=== PATIENT | female | born 1950 | race Two or more races ===

== ENCOUNTER → 2020-05-28 15:32 | Outpatient (BNVA) | payer MEDICARE, MEDICAID, SELFPAY | PROVIDERS: PCP Family Medicine; Referring Provider Family Medicine; Visit Provider Surgery Vascular Surgery | DX: Z47.81 Encounter for orthopedic aftercare following surgical amputation (principal); Z48.02 Encounter for removal of sutures; Z48.01 Encounter for change or removal of surgical wound dressing; Z89.512 Acquired absence of left leg below knee | CPT/HCPCS: 99024; 99212 ==

== ENCOUNTER → 2020-06-11 15:06 | Outpatient (BNVA) | payer MEDICARE, MEDICAID, SELFPAY | PROVIDERS: PCP Family Medicine; Visit Provider Surgery Vascular Surgery | DX: T81.89XA Other complications of procedures, not elsewhere classified, initial encounter (principal); L98.499 Non-pressure chronic ulcer of skin of other sites with unspecified severity; Z89.512 Acquired absence of left leg below knee | CPT/HCPCS: 99212 ==

== ENCOUNTER 2020-06-18 10:22 | Outpatient (RCR) | payer MEDICARE, MEDICAID, SELFPAY | END 2020-07-02 13:01 | disposition home or self-care (01) | LOC: HO.WCC 10:22 | PROVIDERS: Visit Provider Physician Assistant Surgical | DX: T87.81 Dehiscence of amputation stump (principal); E11.22 Type 2 diabetes mellitus with diabetic chronic kidney disease; E11.59 Type 2 diabetes mellitus with other circulatory complications; E11.40 Type 2 diabetes mellitus with diabetic neuropathy, unspecified; I12.9 Hypertensive chronic kidney disease with stage 1 through stage 4 chronic kidney disease, or unspecified chronic kidney disease; N18.30 Chronic kidney disease, stage 3 unspecified; Z89.512 Acquired absence of left leg below knee; Z79.4 Long term (current) use of insulin; Z95.0 Presence of cardiac pacemaker | CPT/HCPCS: 99203; 99212; 99213 ==

== ENCOUNTER → 2020-07-23 15:57 | Outpatient (BNVA) | payer MEDICARE, MEDICAID, SELFPAY | PROVIDERS: PCP Family Medicine; Visit Provider Surgery Vascular Surgery | DX: I73.9 Peripheral vascular disease, unspecified (principal); Z89.512 Acquired absence of left leg below knee | CPT/HCPCS: 99212 ==

== ENCOUNTER 2020-10-12 14:42 | Outpatient (REF) | payer MEDICARE, MEDICAID, SELFPAY ==
--- NOTE | ~2020-10-12 | US_ITS ---
EXAMINATION: COLOR-FLOW DUPLEX IMAGING OF THE UNILATERAL RIGHT LOWER EXTREMITY ARTERIAL SYSTEM. VELOCITY MEASUREMENTS THROUGHOUT THE FEMORAL ARTERIES WITH ANKLE-BRACHIAL PERIPHERAL ARTERIAL TESTING. Interventional Radiologist: Bertin Lopez M.D., F.S.I.R., F.A.C.R. CLINICAL INFORMATION: This is a 69-year-old female with peripheral vascular disease. The patient is status post left leg amputation. COMPARISON: Comparison is made to a study dated 03/04/2020. RIGHT FEMORAL RUNOFF VELOCITIES: The right common femoral artery measures 97 cm/s and triphasic. The right profunda femoral artery is 85 cm/s and is biphasic. Right proximal superficial femoral artery measures 77 cm/s and biphasic. Mid superficial femoral artery is 58 cm/s and biphasic. Distal right superficial femoral artery measures 80 cm/s and is biphasic. Right popliteal velocity measures 39 cm/s and is monophasic. The right ankle-brachial index is 1.07. US/US arterial duplex LE RT IMPRESSION: 1. There is diffusely scattered atherosclerotic disease without evidence of focal hemodynamically significant stenosis. The study appears similar to the previous study dated 03/04/2020.
--- NOTE | ~2020-10-12 | US_ITS ---
EXAMINATION: COLOR-FLOW DUPLEX IMAGING OF THE UNILATERAL RIGHT LOWER EXTREMITY ARTERIAL SYSTEM. VELOCITY MEASUREMENTS THROUGHOUT THE FEMORAL ARTERIES WITH ANKLE-BRACHIAL PERIPHERAL ARTERIAL TESTING. Interventional Radiologist: Bertin Lopez M.D., F.S.I.R., F.A.C.R. CLINICAL INFORMATION: This is a 69-year-old female with peripheral vascular disease. The patient is status post left leg amputation. COMPARISON: Comparison is made to a study dated 03/04/2020. RIGHT FEMORAL RUNOFF VELOCITIES: The right common femoral artery measures 97 cm/s and triphasic. The right profunda femoral artery is 85 cm/s and is biphasic. Right proximal superficial femoral artery measures 77 cm/s and biphasic. Mid superficial femoral artery is 58 cm/s and biphasic. Distal right superficial femoral artery measures 80 cm/s and is biphasic. Right popliteal velocity measures 39 cm/s and is monophasic. The right ankle-brachial index is 1.07. US/US LACI complete IMPRESSION: 1. There is diffusely scattered atherosclerotic disease without evidence of focal hemodynamically significant stenosis. The study appears similar to the previous study dated 03/04/2020.
== END 2020-10-12 14:43 | disposition home or self-care (01) ==
LOC: HO.US 14:42
PROVIDERS: Visit Provider Surgery Vascular Surgery
DX: I73.9 Peripheral vascular disease, unspecified (principal)
CPT/HCPCS: 93923; 93926

== ENCOUNTER → 2020-11-03 15:42 | Outpatient (BNVA) | payer MEDICARE, MEDICAID, SELFPAY | PROVIDERS: PCP Family Medicine; Visit Provider Surgery Vascular Surgery | DX: I73.9 Peripheral vascular disease, unspecified (principal) | CPT/HCPCS: 99212 ==

== ENCOUNTER 2021-06-09 13:41 | Outpatient (REF) | payer MEDICARE, MEDICAID, SELFPAY ==
--- NOTE | ~2021-06-09 | US_ITS ---
EXAMINATION: ANKLE-BRACHIAL INDICES RIGHT LEG ONLY SINGLE LEVEL PULSE VOLUME RECORDING RIGHT LEG ONLY ARTERIAL DUPLEX RIGHT LEG ONLY CLINICAL INFORMATION: Peripheral vascular disease COMPARISON: None TECHNIQUE: Right-sided ankle-brachial indices, PVR, and duplex Doppler evaluation of the lower extremity arterial system was performed (the patient has a left below knee amputation). FINDINGS: RIGHT: Ankle-brachial index: 0.99 PVR: Mildly abnormal. Common femoral: PSV 55 cm/s. Biphasic waveform. Deep femoral: PSV 70 cm/s. Biphasic waveform. Proximal superficial femoral: PSV 21 cm/s. Biphasic waveform. Mid superficial femoral: PSV 63 cm/s. Biphasic waveform. Distal superficial femoral: PSV 55 cm/s. Biphasic waveform. Popliteal: PSV 72 cm/s. Biphasic waveform. Posterior tibial artery: PSV 19 cm/s. Monophasic waveform. US/US arterial duplex LE RT IMPRESSION: Normal ankle-brachial index with mildly abnormal PVR waveform at the ankle. There is a distal SFA high-grade stenosis versus occlusion with collateralization. Posterior tibial waveform is monophasic.
--- NOTE | ~2021-06-09 | US_ITS ---
EXAMINATION: ANKLE-BRACHIAL INDICES RIGHT LEG ONLY SINGLE LEVEL PULSE VOLUME RECORDING RIGHT LEG ONLY ARTERIAL DUPLEX RIGHT LEG ONLY CLINICAL INFORMATION: Peripheral vascular disease COMPARISON: None TECHNIQUE: Right-sided ankle-brachial indices, PVR, and duplex Doppler evaluation of the lower extremity arterial system was performed (the patient has a left below knee amputation). FINDINGS: RIGHT: Ankle-brachial index: 0.99 PVR: Mildly abnormal. Common femoral: PSV 55 cm/s. Biphasic waveform. Deep femoral: PSV 70 cm/s. Biphasic waveform. Proximal superficial femoral: PSV 21 cm/s. Biphasic waveform. Mid superficial femoral: PSV 63 cm/s. Biphasic waveform. Distal superficial femoral: PSV 55 cm/s. Biphasic waveform. Popliteal: PSV 72 cm/s. Biphasic waveform. Posterior tibial artery: PSV 19 cm/s. Monophasic waveform. US/US LACI complete IMPRESSION: Normal ankle-brachial index with mildly abnormal PVR waveform at the ankle. There is a distal SFA high-grade stenosis versus occlusion with collateralization. Posterior tibial waveform is monophasic.
== END 2021-06-09 13:42 | disposition home or self-care (01) ==
LOC: HO.US 13:41
PROVIDERS: Visit Provider Surgery Vascular Surgery
DX: I73.9 Peripheral vascular disease, unspecified (principal)
CPT/HCPCS: 93923; 93926

== ENCOUNTER → 2021-07-20 13:18 | Outpatient (BNVA) | payer MEDICARE, MEDICAID, SELFPAY | PROVIDERS: PCP Family Medicine; Visit Provider Surgery Vascular Surgery | DX: I73.9 Peripheral vascular disease, unspecified (principal) | CPT/HCPCS: 99212 ==

== ENCOUNTER 2022-10-21 11:35 | Inpatient (IN) | payer MEDICARE, MEDICAID, SELFPAY ==
--- NOTE | ~2022-10-21 | US_ITS ---
EXAMINATION: NONINVASIVE ASSESSMENT OF THE ARTERIES OF THE RIGHT LOWER EXTREMITIES WITH PVR EXAM AND BILATERAL LOWER EXTREMITY DUPLEX Ivy Ochoa MD CLINICAL INFORMATION: Nonhealing toe ulcer TECHNIQUE: Ankle pulse volume recordings, ankle pressure measurements and ankle brachial indices were obtained of the right lower extremity arterial system bilaterally in addition to duplex Doppler techniques with wave form analysis and measurement of velocities in the common femoral, profunda femoral, superficial femoral, popliteal and tibial arteries. The study was performed only at rest. COMPARISON: Noninvasive arterial exam on 06/09/2021 FINDINGS: a) AT REST: RIGHT LE. The right ankle-brachial index is: 1.01 * >0.97-1.25 = normal - no significant arterial disease * 0.75-0.96 = mild peripheral arterial disease * 0.5-0.74 = moderate peripheral arterial disease * <0.50 = severe peripheral arterial disease 2. Right ankle pressure: normal. 3. Right ankle PVR waveform: Abnormal 4. Right direct duplex Doppler findings: Common femoral artery: 86 cm/s, Multiphasic Profunda femoris artery: 60 cm/s, Multiphasic Superficial femoral artery (proximal): 88 cm/s, Multiphasic Superficial femoral artery (mid): 57 cm/s, Multiphasic Superficial femoral artery (distal): 272 cm/s, Multiphasic Proximal Popliteal artery: 79 cm/s, Multiphasic Mid posterior tibial artery: 111 cm/s, Multiphasic Multiple right calf collaterals. There are several abnormal appearing inguinal lymph nodes. US/US LACI complete IMPRESSION: 1. Elevated velocity in the distal superficial femoral artery suggesting severe stenosis. 2. Multiple collateral vessels in the right calf. 3. Abnormal appearing inguinal lymph nodes.
--- NOTE | ~2022-10-21 | XR_ITS ---
EXAMINATION: XR FOOT, RIGHT CLINICAL INFORMATION: Great toe wound. COMPARISON: None TECHNIQUE: AP, lateral, and oblique views of the right foot. FINDINGS: Soft tissue deformity seen distally in the first digit. Subjacent lucency and cortical irregularity is seen in the medial aspect of the distal cortical margin of the distal phalanx of the first digit. The remainder the digits are intact. The tarsal bones are normally aligned. Mild to moderate atherosclerosis is noted. XR/XR foot RT min 3V IMPRESSION: Distal first digit soft tissue wound with findings suspicious for subjacent osteomyelitis in the first distal phalanx.
--- NOTE | ~2022-10-21 | US_ITS ---
EXAMINATION: NONINVASIVE ASSESSMENT OF THE ARTERIES OF THE RIGHT LOWER EXTREMITIES WITH PVR EXAM AND BILATERAL LOWER EXTREMITY DUPLEX Ivy Ochoa MD CLINICAL INFORMATION: Nonhealing toe ulcer TECHNIQUE: Ankle pulse volume recordings, ankle pressure measurements and ankle brachial indices were obtained of the right lower extremity arterial system bilaterally in addition to duplex Doppler techniques with wave form analysis and measurement of velocities in the common femoral, profunda femoral, superficial femoral, popliteal and tibial arteries. The study was performed only at rest. COMPARISON: Noninvasive arterial exam on 06/09/2021 FINDINGS: a) AT REST: RIGHT LE. The right ankle-brachial index is: 1.01 * >0.97-1.25 = normal - no significant arterial disease * 0.75-0.96 = mild peripheral arterial disease * 0.5-0.74 = moderate peripheral arterial disease * <0.50 = severe peripheral arterial disease 2. Right ankle pressure: normal. 3. Right ankle PVR waveform: Abnormal 4. Right direct duplex Doppler findings: Common femoral artery: 86 cm/s, Multiphasic Profunda femoris artery: 60 cm/s, Multiphasic Superficial femoral artery (proximal): 88 cm/s, Multiphasic Superficial femoral artery (mid): 57 cm/s, Multiphasic Superficial femoral artery (distal): 272 cm/s, Multiphasic Proximal Popliteal artery: 79 cm/s, Multiphasic Mid posterior tibial artery: 111 cm/s, Multiphasic Multiple right calf collaterals. There are several abnormal appearing inguinal lymph nodes. US/US arterial duplex LE RT IMPRESSION: 1. Elevated velocity in the distal superficial femoral artery suggesting severe stenosis. 2. Multiple collateral vessels in the right calf. 3. Abnormal appearing inguinal lymph nodes.
--- NOTE | 2022-10-21 12:11 | ED_ITS ---
HPI - Wound/Laceration General Chief Complaint: Wound/Laceration <Jayla Caldwell CNP - Last Filed: 10/21/22 12:17> Stated Complaint: diabetic, scratch on R foot <Jayla Caldwell CNP - Last Filed: 10/21/22 12:17> Time Seen by Provider: 10/21/22 18:50 <Jayla Caldwell CNP - Last Filed: 10/21/22 12:17> Source: patient and family <Marcella Giles MD - Last Filed: 10/21/22 22:05> Mode of arrival: ambulatory <Marcella Giles MD - Last Filed: 10/21/22 22:05> Limitations: no limitations <Marcella Giles MD - Last Filed: 10/21/22 22:05> History of Present Illness HPI narrative: Patient comes to the emergency room accompanied by her family. 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 Approximately 2 weeks ago, patient sustained an injury to the great toe on the right side. Patient's foot has becoming gradually erythematous, very painful to touch. Patient denies fever chills. Patient known to be diabetic. Patient has history of amputation due to osteomyelitis on the left foot <Marcella Giles MD - Last Filed: 10/21/22 22:05> Related Data Home Medications: Home Medications Medication Instructions Recorded Confirmed insulin glargine 100 unit/mL (3 40 unit subcut DAILY 05/28/20 mL) subcutaneous pen insulin lispro 100 unit/mL unit subcut 05/28/20 subcutaneous pen aspirin 81 mg chewable tablet 1 tab PO DAILY 06/11/20 atorvastatin 40 mg tablet mg PO 06/11/20 blood sugar diagnostic #10 ea 06/11/20 clopidogrel 75 mg tablet 75 mg PO DAILY 06/11/20 glucagon (human recombinant) 1 mg mg IM 06/11/20 solution for injection insulin aspart U-100 100 unit/mL unit subcut 06/11/20 (3 mL) subcutaneous pen lancets 28 gauge #100 ea 06/11/20 lisinopril 20 mg tablet 20 mg PO DAILY 06/11/20 pen needle, diabetic 31 gauge x #50 ea 06/11/20 1/4 amlodipine 5 mg tablet 5 mg PO DAILY 07/20/21 insulin degludec 200 unit/mL (3 unit subcut 07/20/21 mL) subcutaneous pen (Tresiba FlexTouch U-200 insulin) lisinopril 10 mg tablet 10 mg PO DAILY 07/20/21 pen needle, diabetic 31 gauge x #50 ea 07/20/21 trazodone 50 mg tablet 50 mg PO BEDTIME 07/20/21 <Jayla Caldwell CNP - Last Filed: 10/21/22 12:17> Allergies/Adverse Reactions: Allergies Allergy/AdvReac Type Severity Reaction Status Date / Time penicillin V Allergy Unknown RSH,ITCHY Verified 07/20/21 13:29 <Jayla Caldwell CNP - Last Filed: 10/21/22 12:17> Review of Systems Review of Systems: Constitutional : No Weight loss, No Fever, No Chills, No Night Sweats, No Fatigue, No Malaise ENT/Mouth : No Hearing loss, No Ear Pain, No Nasal Congestion, No Sinus Pain, No Hoarseness, No sore throat, No Rhinorrhea, No Swallowing Difficulty Eyes: No Eye Pain, No Swelling, No Redness, No Foreign Body, No Discharge, No Vision Changes Cardiovascular : No Chest Pain, No SOB, No Dyspnea on Exertion, No Orthopnea, No Edema, No Palpitations Respiratory : No Cough, No Sputum, No Wheezing, No Smoke Exposure, No Dyspnea Gastrointestinal : No Nausea, No Vomiting, No Diarrhea, No Constipation, No abdominal Pain, No Hematochezia, No Melena Genitourinary : no irregular bleeding, No Dysuria, No Urinary Frequency, No Hematuria, No Urinary Incontinence, No Urgency, No Flank Pain, No Urinary Flow Changes, No Hesitancy Musculoskeletal : No joint pain, No Myalgias, No Joint Swelling Skin : Skin infection on the dorsum of the foot on the right side, ulcer on the great toe Neuro : No Weakness, No Numbness, No Paresthesias, No Loss of Consciousness, No Dizziness, No Headache Psych : No Anxiety/Panic, No Depression, No SI/HI/AH/VH, No Social Issues, Heme/Lymph: No Bruising, No Bleeding,No Lymphadenopathy Endocrine : No Polyuria, No Polydipsia, No Temperature Intolerance <Marcella Giles MD - Last Filed: 10/21/22 22:05> [facility] Past Medical History Medical History: Medical History Diabetes Essential hypertension History of left below knee amputation Mood disorder PAD (peripheral artery disease) <Jayla Barfield SHERLY Caldwell - Last Filed: 10/21/22 12:17> Surgical History: Surgical History History of femoral angiogram History of left below knee amputation Pacemaker <Jayla Barfield SHERLY Caldwell - Last Filed: 10/21/22 12:17> Social History Social History: Social History Advance Directives: No Advance Directives Information Provided: Yes <Jayla Barfield SHERLY Caldwell - Last Filed: 10/21/22 12:17> Physical Exam Vital Signs: Vital Signs: Last Vital Signs Temp 96.4 F L 10/21/22 12:16 Pulse 72 10/21/22 19:34 Resp 19 10/21/22 19:34 BP 206/93 H 10/21/22 19:34 Pulse Ox 98 10/21/22 19:34 O2 Del Method 10/21/22 19:34 BMI result Body Mass Index 22.6 <Jayla HoltSHERLY de oliveira - Last Filed: 10/21/22 12:17> Vital Signs: Last Vital Signs Temp 96.4 F L 10/21/22 12:16 Pulse 72 10/21/22 19:34 Resp 19 10/21/22 19:34 BP 206/93 H 10/21/22 19:34 Pulse Ox 98 10/21/22 19:34 O2 Del Method 10/21/22 19:34 BMI result Body Mass Index 22.6 <Marcella Giles MD - Last Filed: 10/21/22 22:05> Const: Other: Appearance: Alert. Oriented X3. No acute distress. Eyes: Pupils equal, round and reactive to light. ENT: Pharynx normal. Neck: Normal inspection. Neck supple. No lymph nodes noted. No crepitus CVS: Normal heart rate and rhythm. Pulses normal. Normal S1 and S2 Respiratory: No respiratory distress. Breath sounds normal. No Wheezing. No rales Abdomen: Soft and nontender. No rigidity. No distention. Skin: Patient has a large nonhealing ulcer on the medial aspect of the toenail on the right great toe. Dorsum of the foot is warm, erythematous, very tender to touch. Patient also complaining of pain in the plantar aspect of the foot Extremities: Trace pitting edema in right foot, see skin above Neuro: Oriented X 3. No motor deficit. No sensory deficit. Moving all extremities. No slurred speech. CN 2 through 12 grossly intact Psych: calm, cooperative, normal affect <Marcella Giles MD - Last Filed: 10/21/22 22:05> Course Course Course Narrative: This is an RME: Additional HPI, ROS, PE not included below will be deferred to primary provider. Patient is a 71-year-old female with past medical history of diabetes who presents emergency department for evaluation of a reported scratch to the right foot. First noticed this 1 week ago, does not recall what caused it. Denies fevers or chills, numbness or tingling. Increasing redness, drainage. Plan: Labs, XR of the right foot. placed back in waiting room pending bed availability <Jayla Caldwell CNP - Last Filed: 10/21/22 12:17> Medications Administered Discontinued Medications Generic Name Dose Route Start Last Admin Trade Name Freq PRN Reason Stop Dose Admin Labetalol HCl 100 mg 10/21/22 21:01 10/21/22 21:10 Labetalol Hcl 100 Mg Tablet PO 10/21/22 21:02 100 mg ONCE ONE Administration Protocol <Jayla Caldwell CNP - Last Filed: 10/21/22 12:17> Medications Administered Discontinued Medications Generic Name Dose Route Start Last Admin Trade Name Freq PRN Reason Stop Dose Admin Labetalol HCl 100 mg 10/21/22 21:01 10/21/22 21:10 Labetalol Hcl 100 Mg Tablet PO 10/21/22 21:02 100 mg ONCE ONE Administration Protocol <Marcella Giles MD - Last Filed: 10/21/22 22:05> Medical Decision Making Medical Decision Making MDM Narrative: X-ray of the foot show suspicion for distal 1st digit osteomyelitis. -I discussed with the patient and her family that I recommend inpatient admission, patient will need IV antibiotics. Family agrees that the patient should be staying. Patient is refusing to stay. -patient already had a foot amputation secondary to a similar infection. The family is very upset that the patient that she is refusing admission. They are talking to her at this time and trying to convince her to stay. -a after a very prolonged conversation with the patient, the family, the family begging for the patient to stay , a lot of yelling and crying, patient is agreeable to stay -patient at this time getting Zosyn and vancomycin -patient agreeable to also to take blood pressure medication at this time, patient being given labetalol for her blood pressure. -I discussed the patient with Dr. Kulkarni, pt being admitted <Marcella Giles MD - Last Filed: 10/21/22 22:05> Differential Diagnosis Differential Diagnoses: The differential diagnosis associated with the presentation includes (Cellulitis, osteomyelitis) <Marcella Giles MD - Last Filed: 10/21/22 22:05> Admission/Observation Consideration of admission/observation: Escalation of care including admission/observation considered <aMrcella Giles MD - Last Filed: 10/21/22 22:05> Consult Healthcare Provider Management of the patient was discussed with: Hospitalist <Marcella Giles MD - Last Filed: 10/21/22 22:05> Lab Data MDM Lab Attestation statement: I reviewed the patient's lab results. <Marcella Giles MD - Last Filed: 10/21/22 22:05> Result Diagrams: 10/21/22 13:33 10/21/22 13:33 <Jayla Caldwell CNP - Last Filed: 10/21/22 12:17> Labs: Lab Results 10/21/22 10/21/22 10/21/22 Range/Units 13:33 13:33 13:33 WBC 5.7 (4.8-10.8) X10*3/uL RBC 4.53 (4.20-5.50) X10*6/uL Hgb 12.2 (12.0-16.0) g/dl Hct 38.8 (37.0-47.0) % MCV 85.7 (80.0-98.0) fL MCH 26.9 L (27.0-33.0) pg MCHC 31.4 (31.0-35.0) g/dl RDW 13.8 (11.0-16.0) % Plt Count 271 (160-400) X10*3/uL MPV 10.3 (9.4-12.3) fL Immature Gran % (Auto) 0.2 (0.0-0.4) % Neut % (Auto) 68.4 (45-73) % Lymph % (Auto) 21.0 (20-40) % [place] % (Auto) 9.1 (2-11) % Eos % (Auto) 1.0 (0-4) % Baso % (Auto) 0.3 (0-2) % Lymph # (Auto) 1.2 (1.2-4.9) X10*3/uL [place] # (Auto) 0.5 (0.1-1.2) X10*3/uL Eos # (Auto) 0.1 (0.0-0.4) X10*3/uL Baso # (Auto) 0.0 (0.0-0.2) X10*3/uL Abs Immat Gran (auto) 0.01 (0.00-0.03) X10*3/uL Absolute Neuts (auto) 3.9 (2.0-8.3) x10*3/uL Absolute Nucleated RBC 0.000 (0.0-0.012) X10*3/uL Nucleated RBC % (auto) 0.0 (0.0-0.2) /100WBC ESR 83 H (0-20) MM/HR Sodium 135 (135-145) mmol/L Potassium 5.0 (3.3-5.1) mmol/L Chloride 100 (96-108) mmol/L Carbon Dioxide 25 (22-29) mmol/L Anion Gap 15 (12-20) BUN 48 H (9-16) mg/dL Creatinine 1.50 H (0.5-1.4) mg/dL Estim Creat Clear Calc 32.1 Estimated GFR 34 Random Glucose 236 H (60-115) mg/dL Calcium 9.3 (8.4-10.2) mg/dL Total Bilirubin 0.3 (0.0-1.0) mg/dL AST 21 (5-31) U/L ALT 14 (0-31) U/L Alkaline Phosphatase 63 (39-117) U/L C-Reactive Protein 1.84 H (< or = 0.50) mg/dL Total Protein 8.1 H (6.5-8.0) g/dL Albumin 3.7 (3.5-5.0) g/dL <Jayla Caldwell, RECRUITER - Last Filed: 10/21/22 12:17> Lab Results 10/21/22 10/21/22 10/21/22 Range/Units 13:33 13:33 13:33 WBC 5.7 (4.8-10.8) X10*3/uL RBC 4.53 (4.20-5.50) X10*6/uL Hgb 12.2 (12.0-16.0) g/dl Hct 38.8 (37.0-47.0) % MCV 85.7 (80.0-98.0) fL MCH 26.9 L (27.0-33.0) pg MCHC 31.4 (31.0-35.0) g/dl RDW 13.8 (11.0-16.0) % Plt Count 271 (160-400) X10*3/uL MPV 10.3 (9.4-12.3) fL Immature Gran % (Auto) 0.2 (0.0-0.4) % Neut % (Auto) 68.4 (45-73) % Lymph % (Auto) 21.0 (20-40) % [place] % (Auto) 9.1 (2-11) % Eos % (Auto) 1.0 (0-4) % Baso % (Auto) 0.3 (0-2) % Lymph # (Auto) 1.2 (1.2-4.9) X10*3/uL [place] # (Auto) 0.5 (0.1-1.2) X10*3/uL Eos # (Auto) 0.1 (0.0-0.4) X10*3/uL Baso # (Auto) 0.0 (0.0-0.2) X10*3/uL Abs Immat Gran (auto) 0.01 (0.00-0.03) X10*3/uL Absolute Neuts (auto) 3.9 (2.0-8.3) x10*3/uL Absolute Nucleated RBC 0.000 (0.0-0.012) X10*3/uL Nucleated RBC % (auto) 0.0 (0.0-0.2) /100WBC ESR 83 H (0-20) MM/HR Sodium 135 (135-145) mmol/L Potassium 5.0 (3.3-5.1) mmol/L Chloride 100 (96-108) mmol/L Carbon Dioxide 25 (22-29) mmol/L Anion Gap 15 (12-20) BUN 48 H (9-16) mg/dL Creatinine 1.50 H (0.5-1.4) mg/dL Estim Creat Clear Calc 32.1 Estimated GFR 34 Random Glucose 236 H (60-115) mg/dL Calcium 9.3 (8.4-10.2) mg/dL Total Bilirubin 0.3 (0.0-1.0) mg/dL AST 21 (5-31) U/L ALT 14 (0-31) U/L Alkaline Phosphatase 63 (39-117) U/L C-Reactive Protein 1.84 H (< or = 0.50) mg/dL Total Protein 8.1 H (6.5-8.0) g/dL Albumin 3.7 (3.5-5.0) g/dL <Marcella Giles MD - Last Filed: 10/21/22 22:05> Independent Interpretation I performed an independent interpretation of an: Plain X-Ray (My interpretation a foot x-ray, there there osseus abnormality in the 1st digit) <Marcella Giles MD - Last Filed: 10/21/22 22:05> Radiology Impression Discussion of test interpretation with radiology: I have reviewed the radiologist's reading. <Marcella Giles MD - Last Filed: 10/21/22 22:05> Radiologist Impression: INDINGS: Soft tissue deformity seen distally in the first digit. Subjacent lucency and cortical irregularity is seen in the medial aspect of the distal cortical margin of the distal phalanx of the first digit. The remainder the digits are intact. The tarsal bones are normally aligned. Mild to moderate atherosclerosis is noted. XR/XR foot RT min 3V IMPRESSION: Distal first digit soft tissue wound with findings suspicious for subjacent osteomyelitis in the first distal phalanx. <Marcella Giles MD - Last Filed: 10/21/22 22:05> Critical Care Time Critical Care Time Critical Care Time: Yes <Marcella Giles MD - Last Filed: 10/21/22 22:05> Total Critical Care Time: 60 <Marcella Giles MD - Last Filed: 10/21/22 22:05> Attestation: I have personally provided critical care time. Time includes review of lab data, radiology results, discussion with consultants, and monitoring for potential decompensation. Intervention performed as documented. <Marcella Giles MD - Last Filed: 10/21/22 22:05> Discharge Plan Discharge Clinical Impression: Osteomyelitis, Hypertension <Jayla Caldwell CNP - Last Filed: 10/21/22 12:17> Patient Disposition: Admitted As Inpatient <Jayla Caldwell CNP - Last Filed: 10/21/22 12:17>
[2022-10-21 12:16] VITALS: BP 194/71; PULSE 77; RESP 16; TEMP 35.8; O2SAT 99; BMI 22.6
[2022-10-21 13:37] LABS: MANUAL DIFF FLAG NO
[2022-10-21 13:41] LABS: Basophils Percent Auto 0.3 % (0-2); Eosinophils Absolute Auto 0.1 X10*3/uL (0.0-0.4); Hematocrit 38.8 % (37.0-47.0); Hemoglobin 12.2 g/dl (12.0-16.0); Imm Gran Abs Auto 0.01 X10*3/uL (0.00-0.03); Imm Gran Pct Auto 0.2 % (0.0-0.4); Lymphocytes Absolute Auto 1.2 X10*3/uL (1.2-4.9); Mean Corpuscular HGB Conc 31.4 g/dl (31.0-35.0); Mean Corpuscular Hemoglobin 26.9 pg (27.0-33.0); Mean Corpuscular Volume 85.7 fL (80.0-98.0); Mean Platelet Volume 10.3 fL (9.4-12.3); Monocytes Absolute Auto 0.5 X10*3/uL (0.1-1.2); Monocytes Percent Auto 9.1 % (2-11); Neutrophils Absolute Auto 3.9 x10*3/uL (2.0-8.3); Neutrophils Percent Auto 68.4 % (45-73); Platelet Count 271 X10*3/uL (160-400); Red Blood Count 4.53 X10*6/uL (4.20-5.50); Red Cell Distribution Width 13.8 % (11.0-16.0); White Blood Count 5.7 X10*3/uL (4.8-10.8)
[2022-10-21 14:12] LABS: Alanine Aminotransferase 14 U/L (0-31); Albumin Level 3.7 g/dL (3.5-5.0); Alkaline Phosphatase 63 U/L (39-117); Anion Gap 15 (12-20); Aspartate Amino Transferase 21 U/L (5-31); Bilirubin Total 0.3 mg/dL (0.0-1.0); Blood Urea Nitrogen 48 mg/dL (9-16); C Reactive Protein 1.84 mg/dL (< or = 0.50); Calcium 9.3 mg/dL (8.4-10.2); Carbon Dioxide 25 mmol/L (22-29); Chloride 100 mmol/L (96-108); Creatinine Clr Calc Pharmacy 32.1; Estimated Glomerular Filt Rate 34; Glucose Random 236 mg/dL (60-115); Sodium 135 mmol/L (135-145); Total Protein 8.1 g/dL (6.5-8.0)
[2022-10-21 14:26] LABS: Erythrocyte Sedimentation Rate 83 MM/HR (0-20)
[2022-10-21 19:34] VITALS: BP 206/93; PULSE 72; RESP 19; O2SAT 98
[2022-10-21] MEDS: Labetalol HCL 100 MG TABLET PO (21:10)
--- NOTE | 2022-10-21 21:31 | PM.IMHP ---
History of Present Illness Date of Service: 10/21/22 Chief Complaint: Foot infection This is a 71-year-old female with pertinent history of essential hypertension, insulin-dependent diabetes mellitus, mood disorder, peripheral arterial disease status post left AKA presents to the emergency department for evaluation of injury to right great toe. Patient is Creole speaking and history obtained via family member as patient denied interpretation services. Patient states she had trauma to the right great toe about 2 weeks ago. Since then the right great toe has become erythematous, swollen and painful. No drainage. Patient denies fever, chills, chest discomfort, palpitations, shortness of breath, abdominal pain, changes in urinary or bowel habits. In the emergency department, imaging concerning for osteomyelitis Review of Systems Constitutional: Constitutional: Reports no additional constitutional complaints Cardiovascular: Cardiovascular: Reports no additional cardiovascular complaints Respiratory: Respiratory: Reports no additional respiratory complaints Genitourinary: Genitourinary: Reports no additional female genitourinary complaints Musculoskeletal: Musculoskeletal: Reports arthralgias [facility] Medical History Diabetes Essential hypertension History of left below knee amputation Mood disorder PAD (peripheral artery disease) Pertinent family history: No family history of CAD Surgical History History of femoral angiogram History of left below knee amputation Pacemaker Social History Advance Directives: No Advance Directives Information Provided: Yes Meds Allergies Allergy/AdvReac Type Severity Reaction Status Date / Time penicillin V Allergy Unknown RSH,ITCHY Verified 07/20/21 13:29 Active Medications: Current Medications Vancomycin HCl 1,500 mg/ (Sodium Chloride) 500 mls @ 333.333 mls/hr IV ONCE ONE Stop: 10/21/22 22:52 Piperacillin Sod/Tazobactam (Sod 3.375 gm/ Sodium Chloride) 50 mls @ 100 mls/hr IV ONCE ONE Stop: 10/21/22 21:52 Pharmacy Consult (Consult Rx Vancomycin Dosing) 1 each MISCELLANE DAILY PRN PRN Reason: Consult order Pharmacy Consult (Consult Rx Perform Med Rec) 1 each MISCELLANE ONCE PRN PRN Reason: Consult order Home Medications Medication Instructions Recorded Confirmed Last Taken Type insulin glargine 100 unit/mL (3 40 unit subcut DAILY 05/28/20 Unknown History mL) subcutaneous pen insulin lispro 100 unit/mL unit subcut 05/28/20 Unknown History subcutaneous pen aspirin 81 mg chewable tablet 1 tab PO DAILY 06/11/20 Unknown History atorvastatin 40 mg tablet mg PO 06/11/20 Unknown History blood sugar diagnostic #10 ea 06/11/20 Unknown History clopidogrel 75 mg tablet 75 mg PO DAILY 06/11/20 Unknown History glucagon (human recombinant) 1 mg mg IM 06/11/20 Unknown History solution for injection insulin aspart U-100 100 unit/mL unit subcut 06/11/20 Unknown History (3 mL) subcutaneous pen lancets 28 gauge #100 ea 06/11/20 Unknown History lisinopril 20 mg tablet 20 mg PO DAILY 06/11/20 Unknown History pen needle, diabetic 31 gauge x #50 ea 06/11/20 Unknown History 1/ amlodipine 5 mg tablet 5 mg PO DAILY 07/20/21 Unknown History insulin degludec 200 unit/mL (3 unit subcut 07/20/21 Unknown History mL) subcutaneous pen (Tresiba FlexTouch U-200 insulin) lisinopril 10 mg tablet 10 mg PO DAILY 07/20/21 Unknown History pen needle, diabetic 31 gauge x #50 ea 07/20/21 Unknown History trazodone 50 mg tablet 50 mg PO BEDTIME 07/20/21 Unknown History Physical Exam Vital Signs and Narrative: Vital Signs: Last Vital Signs Temp 96.4 F L 10/21/22 12:16 Pulse 72 10/21/22 19:34 Resp 19 10/21/22 19:34 BP 206/93 H 10/21/22 19:34 Pulse Ox 98 10/21/22 19:34 O2 Del Method 10/21/22 19:34 BMI result Body Mass Index 22.6 Elderly female lying in bed in no distress Neck supple, no JVD Regular rate and rhythm, S1-S2 heard Regular breath sounds bilaterally, no wheezing or crackles appreciated Abdomen soft nontender, no guarding, no rigidity Patient is awake, alert and oriented to self, place, time and person ; no focal motor deficit Musculoskeletal: Left AKA, right great toe with cellulitis and nonhealing wound Psych: Normal mood No pedal edema Results Labs 10/21/22 13:33 10/21/22 13:33 Labs: Laboratory Results - last 24 hr 10/21/22 10/21/22 10/21/22 13:33 13:33 13:33 MCV 85.7 MCH 26.9 L MCHC 31.4 RDW 13.8 Plt Count 271 MPV 10.3 Immature Gran % (Auto) 0.2 Neut % (Auto) 68.4 Lymph % (Auto) 21.0 [place] % (Auto) 9.1 Eos % (Auto) 1.0 Baso % (Auto) 0.3 Lymph # (Auto) 1.2 [place] # (Auto) 0.5 Eos # (Auto) 0.1 Baso # (Auto) 0.0 Abs Immat Gran (auto) 0.01 Absolute Neuts (auto) 3.9 Absolute Nucleated RBC 0.000 Nucleated RBC % (auto) 0.0 ESR 83 H Anion Gap 15 Estim Creat Clear Calc 32.1 Estimated GFR 34 Random Glucose 236 H Calcium 9.3 Total Bilirubin 0.3 AST 21 ALT 14 Alkaline Phosphatase 63 C-Reactive Protein 1.84 H Total Protein 8.1 H Albumin 3.7 Imaging Radiologist's Impressions: Impressions Foot X-Ray 10/21/22 12:59 IMPRESSION: Distal first digit soft tissue wound with findings suspicious for subjacent osteomyelitis in the first distal phalanx. Assessment and Plan (1) Osteomyelitis: Status: Acute Plan This is a 71-year-old female with pertinent history of essential hypertension, insulin-dependent diabetes mellitus, mood disorder, peripheral arterial disease status post left AKA presents to the emergency department for evaluation of injury to right great toe. #. Right great toe cellulitis with imaging concerning for cellulitis: Will admit patient and initiate empiric IV antibiotics. Consulted General surgery for possible debridement and Infectious Disease, appreciate assistance. Blood cultures pending. Lactic acid obtained #. Peripheral arterial disease status post left AKA: On antiplatelet therapy and high-intensity statin #. Hypertensive urgency in a patient with essential hypertension: Ordered nitro paste and IV labetalol in the ER. Resume p.o. antihypertensives #. Uncontrolled insulin-dependent diabetes mellitus with hyperglycemia: Initiating basal bolus regimen #. Mood disorder: Continue home mood stabilizers Med rec pending DVT prophylaxis: Lovenox 40 mg daily Diabetic diet Full code Admit as inpatient and will require two night minimum hospital stay for IV antibiotics Time Spent With Patient Time: Total time managing care of this patient today ____ minutes. Quality Stroke Does the patient have a stroke diagnosis?: No VTE Prior VTE?: No VTE Risk Level:: Medical - moderate - high VTE Device Contraindication: Treatment Not Indicated VTE Drug Contraindication: N/A - Med Ordered
[2022-10-21] MEDS: amLODIPine Besylate 5 MG TABLET PO (22:25)
[2022-10-21] MEDS: Labetalol HCL 100 MG/20 ML VIAL 10 MG IVPUSH (22:32)
[2022-10-21 22:34] VITALS: BP 171/84; O2SAT 96
[2022-10-21] MEDS: Enoxaparin Sodium 40 MG/0.4 ML SYRINGE SUBCUT (22:37)
[2022-10-21] MEDS: cefEPime HCl 2 GM in 0.9 % Sodium Chloride 50 ML IV (22:41)
[2022-10-21] MEDS: vancomycin HCL 1,500 MG in 0.9 % Sodium Chloride 500 ML 333.33 MG IV (22:52)
[2022-10-21 22:53] LABS: Lactic Acid 1.1 mmol/L (0.5-2.0)
[2022-10-21 22:57] VITALS: BP 134/67; PULSE 64; RESP 16; O2SAT 96
[2022-10-21 23:36] VITALS: BP 139/64; PULSE 65; RESP 18; O2SAT 96
[2022-10-21 23:42] LABS: Glucose, Whole Blood 158 mg/dL (60-115)
[2022-10-21 23:57] LABS: COVID-19 Test Negative (Negative); IDNOW Serial# 55D5AD1C
--- NOTE | 2022-10-21 23:59 | PC.NURSE ---
This business writer assumed care of this Pt at 1900. Pt A&Ox3, Creole speaking, denies any pain. IV line placed, meds given as documented. Nitro patched placed to R shoulder. R great toe red, no drainage noted, crust around the nail bed. + pedal pulse.
[2022-10-22 00:02] VITALS: BP 139/64; PULSE 64
[2022-10-22] MEDS: Nitroglycerin 2 % Oint 1 GM Packet 1 INCH TRANSDERMA (00:02)
--- NOTE | 2022-10-22 04:38 | PC.NURSE ---
RN to Rn reports given to Nancy. Pt will be transported to room 378 by rail technician. Pt aware of plan.
[2022-10-22 04:42] VITALS: BP 157/74; PULSE 65; RESP 16; TEMP 37; O2SAT 95
[2022-10-22 05:16] VITALS: BP 160/85; PULSE 70; RESP 18; TEMP 36.5; O2SAT 97
[2022-10-22 05:28] VITALS: BMI 22.8
[2022-10-22 05:34] LABS: MANUAL DIFF FLAG NO
[2022-10-22 05:38] LABS: Basophils Percent Auto 0.2 % (0-2); Eosinophils Absolute Auto 0.1 X10*3/uL (0.0-0.4); Eosinophils Percent Auto 1.5 % (0-4); Hematocrit 34.1 % (37.0-47.0); Imm Gran Abs Auto 0.01 X10*3/uL (0.00-0.03); Imm Gran Pct Auto 0.2 % (0.0-0.4); Lymphocytes Absolute Auto 1.5 X10*3/uL (1.2-4.9); Lymphocytes Percent Auto 32.5 % (20-40); Mean Corpuscular HGB Conc 32.3 g/dl (31.0-35.0); Mean Corpuscular Hemoglobin 27.4 pg (27.0-33.0); Mean Platelet Volume 10.7 fL (9.4-12.3); Monocytes Absolute Auto 0.6 X10*3/uL (0.1-1.2); Neutrophils Absolute Auto 2.4 x10*3/uL (2.0-8.3); Neutrophils Percent Auto 52.6 % (45-73); Platelet Count 241 X10*3/uL (160-400); Red Blood Count 4.01 X10*6/uL (4.20-5.50); Red Cell Distribution Width 13.7 % (11.0-16.0); White Blood Count 4.6 X10*3/uL (4.8-10.8)
[2022-10-22 05:51] LABS: Anion Gap 15 (12-20); Blood Urea Nitrogen 38 mg/dL (9-16); Calcium 8.7 mg/dL (8.4-10.2); Carbon Dioxide 22 mmol/L (22-29); Chloride 104 mmol/L (96-108); Creatinine Clr Calc Pharmacy 39.3; Estimated Glomerular Filt Rate 43; Glucose Random 144 mg/dL (60-115); Potassium 4.3 mmol/L (3.3-5.1); Sodium 137 mmol/L (135-145)
[2022-10-22 07:52] VITALS: BP 157/72; PULSE 73; RESP 18; TEMP 36.6; O2SAT 96
[2022-10-22 07:58] LABS: Glucose, Whole Blood 153 mg/dL (60-115)
--- NOTE | 2022-10-22 08:21 | HO.PM.IMPN ---
Subjective Subjective Date of Service: 10/23/22 Interval History: history obtained via manager wastewater, patient denies foot pain, no fevers no chills no other acute issues since admission, tolerating diet with no nausea, no vomiting, no abdominal pain, no diarrhea. Review of Systems Review of Systems: Yes all other systems are reviewed and are negative Physical Exam Vital Signs: Vital Signs: Last Vital Signs Temp 97.8 F 10/22/22 07:52 Pulse 73 10/22/22 07:52 Resp 18 10/22/22 07:52 BP 157/72 H 10/22/22 07:52 Pulse Ox 96 10/22/22 07:52 O2 Del Method 10/22/22 07:52 BMI result Body Mass Index 22.8 Const: Other: General awake aler t resting comforta briana in no distress ? Neck supple, no JVD CVS Regular r ate and rhythm, S1 -S2 heard Resp cl ear to auscultatio n bilaterally, no wheezing or crackl es GI Abdomen sof t, nontender, no g uarding, no rigidi ty Neuro nonfocal extremities no amy ma Musculoskeletal :? Left AKA, right great toe with ce llulitis and non h ealing wound, no d rainage Psych: ap propriate affect Objective Data Active Medications Acetaminophen (Acetaminophen 325 Mg Tablet) 650 mg PO Q6H PRN PRN Reason: Pain, Mild (Pain Scale 1-3) Dextrose (Dextrose 50 % 25 Gm/50 Ml Syringe) 25 gm IVPUSH Q15M PRN; Protocol PRN Reason: per Hypoglycemia Standing Ord. Enoxaparin Sodium (Enoxaparin Sodium 40 Mg/0.4 Ml Syringe) 40 mg SUBCUT Q24H [facility] Last Admin: 10/21/22 22:37 Dose: 40 mg Documented By: MARILYN Glucose (Glucose Gel 15 Gm Gel..Gram.) 15 gm PO Q15M PRN; Protocol PRN Reason: per Hypoglycemia Standing Ord. Cefepime HCl 2 gm/ Sodium (Chloride) 50 mls @ 100 mls/hr IV Q12H [facility] Last Infusion: 10/21/22 23:50 Dose: 0 mls/hr Documented By: MARILYN Vancomycin HCl 750 mg/ Sodium (Chloride) 265 mls @ 265 mls/hr IV Q24H [facility] Insulin Glargine (Insulin Glargine,Hum.Rec.Anlog 100 Unit/Ml 10 Ml Vial) 50 unit SUBCUT BEDTIME [facility] Last Admin: 10/22/22 00:00 Dose: 50 unit Documented By: MARILYN Insulin Human Lispro (Insulin Lispro 100 Unit/Ml 3 Ml Vial) 0 unit SUBCUT QIDACHS [facility]; Protocol Melatonin (Melatonin 3 Mg Tablet) 6 mg PO BEDTIME PRN PRN Reason: Insomnia Ondansetron HCl (Ondansetron Hcl 4 Mg/2 Ml Vial) 4 mg IVPUSH Q8H PRN PRN Reason: Nausea and Vomiting Pharmacy Consult (Consult Rx Perform Med Rec) 1 each MISCELLANE ONCE PRN PRN Reason: Consult order Pharmacy Consult (Consult Rx Vancomycin Dosing) 1 each MISCELLANE DAILY PRN PRN Reason: Consult order Sodium Chloride (0.9 % Sodium Chloride Flush 3 Ml Syringe) 3 ml IVFLUSH QSHIFT [facility] Last Admin: 10/22/22 00:07 Dose: Not Given Documented By: MARILYN Non-Admin Reason: IV Running Labs 10/22/22 05:16 10/22/22 05:16 Labs: Laboratory Results - last 24 hr 10/21/22 10/21/22 10/21/22 13:33 13:33 13:33 MCV 85.7 MCH 26.9 L MCHC 31.4 RDW 13.8 Plt Count 271 MPV 10.3 Immature Gran % (Auto) 0.2 Neut % (Auto) 68.4 Lymph % (Auto) 21.0 [place] % (Auto) 9.1 Eos % (Auto) 1.0 Baso % (Auto) 0.3 Lymph # (Auto) 1.2 [place] # (Auto) 0.5 Eos # (Auto) 0.1 Baso # (Auto) 0.0 Abs Immat Gran (auto) 0.01 Absolute Neuts (auto) 3.9 Absolute Nucleated RBC 0.000 Nucleated RBC % (auto) 0.0 ESR 83 H Anion Gap 15 Estim Creat Clear Calc 32.1 Estimated GFR 34 POC Glucose Random Glucose 236 H Lactic Acid Calcium 9.3 Total Bilirubin 0.3 AST 21 ALT 14 Alkaline Phosphatase 63 C-Reactive Protein 1.84 H Total Protein 8.1 H Albumin 3.7 COVID-19 ([facility]) COVID-19 Clin Com 10/21/22 10/21/2223 22:33 23:35 23:36 MCV MCH MCHC RDW Plt Count MPV Immature Gran % (Auto) Neut % (Auto) Lymph % (Auto) [place] % (Auto) Eos % (Auto) Baso % (Auto) Lymph # (Auto) [place] # (Auto) Eos # (Auto) Baso # (Auto) Abs Immat Gran (auto) Absolute Neuts (auto) Absolute Nucleated RBC Nucleated RBC % (auto) ESR Anion Gap Estim Creat Clear Calc Estimated GFR POC Glucose 158 H Random Glucose Lactic Acid 1.1 Calcium Total Bilirubin AST ALT Alkaline Phosphatase C-Reactive Protein Total Protein Albumin COVID-19 ([facility]) Negative COVID-19 Clin Com See Note 10/22/22 10/22/22 10/22/22 05:16 05:16 07:50 MCV 85.0 MCH 27.4 MCHC 32.3 RDW 13.7 Plt Count 241 MPV 10.7 Immature Gran % (Auto) 0.2 Neut % (Auto) 52.6 Lymph % (Auto) 32.5 [place] % (Auto) 13.0 H Eos % (Auto) 1.5 Baso % (Auto) 0.2 Lymph # (Auto) 1.5 [place] # (Auto) 0.6 Eos # (Auto) 0.1 Baso # (Auto) 0.0 Abs Immat Gran (auto) 0.01 Absolute Neuts (auto) 2.4 Absolute Nucleated RBC 0.000 Nucleated RBC % (auto) 0.0 ESR Anion Gap 15 Estim Creat Clear Calc 39.3 Estimated GFR 43 POC Glucose 153 H Random Glucose 144 H Lactic Acid Calcium 8.7 D Total Bilirubin AST ALT Alkaline Phosphatase C-Reactive Protein Total Protein Albumin COVID-19 ([facility]) COVID-19 Clin Com Assessment and Plan (1) Osteomyelitis: Status: Acute (2) Hypertension: Status: Acute (3) PAD (peripheral artery disease): Status: Acute Plan 71-year-old female with pertinent history of essential hypertension, insulin-dependent diabetes mellitus, mood disorder, peripheral arterial disease status post left AKA presents to the emergency department for evaluation of injury to right great toe. #.? Right great toe cellulitis with imaging concerning for Distal 1st digit osteomyelitis, no sepsis no fevers, no leukocytosis, normal lactic acid on IV cefepime and vancomycin day 1 ? Consulted General surgery for possible debridement and Infectious Disease for choice and duration of antibiotic, Blood cultures pending #.? Peripheral arterial disease status post left AKA: On asa and high-intensity statin #.? Hypertensive urgency with essential hypertension:? treated in ER with nitro paste and IV labetalol , blood pressure improved will resume home medication lisinopril 20 mg and Norvasc 5 mg follow BP closelyi #.? Uncontrolled insulin-dependent diabetes mellitus with hyperglycemia:? on Tresiba 60 units at bedtime, and pre meal insulin 20 units t.i.d., at home placed on insulin sliding scale, diabetic diet and Lantus 50 units at bedtime #.? Mood disorder: Continue home mood stabilizers Med rec completed DVT prophylaxis:? Lovenox 40 mg daily Full code patient will need continued inpatient hospitalization for treatment of right great toe cellulitis/ osteomyelitis requiring IV antibiotics. Time Spent With Patient Time: Total time managing care of this patient today ____ minutes. Quality Stroke Does the patient have a stroke diagnosis?: No VTE Prior VTE?: No VTE Risk Level:: Medical - moderate - high VTE Device Contraindication: Treatment Not Indicated VTE Drug Contraindication: N/A - Med Ordered
--- NOTE | 2022-10-22 08:42 | HE.PHANOTE ---
WANDER CHAVIRA CONTINUE CURRENT DOSE, NEXT LEVEL DUE 10/23
[2022-10-22] MEDS: Insulin Lispro 100 UNIT/ML 3 ML VIAL SUBCUT ×4 (09:02→21:29)
[2022-10-22] MEDS: cefEPime HCl 2 GM in 0.9 % Sodium Chloride 50 ML IV ×2 (09:02→21:30)
[2022-10-22] MEDS: 0.9 % Sodium Chloride Flush 3 ML SYRINGE IVFLUSH ×2 (09:04→17:22)
--- NOTE | 2022-10-22 09:48 | PHA.MEDREC ---
Pharmacy Consult ? Medication Reconciliation Pharmacy has completed the medication reconciliation. Attempted to contact family. Left voicemail to call back. Med rec completed by claim history. If family reaches out, will update provider on any changes. [place], SamD
[2022-10-22] MEDS: amLODIPine Besylate 5 MG TABLET PO (10:05)
[2022-10-22 11:30] LABS: Glucose, Whole Blood 282 mg/dL (60-115)
--- NOTE | 2022-10-22 14:36 | PM.CNGS ---
History of Present Illness Consult details Consult date: 10/22/22 Requesting physician: Richard Aguila Narrative: The pt is a 71 yo female with diabtes, pad, htn who is s/p left bka and right foot wound after hitting the foot on the bathroom floor. it started to get infected and the pt came to the ER. being treated with iv antibx. She sees Dr Puentes in the past and last LACI was 1.06 about a year ago. Foot and toe look better now but xrays showed distal phalanx osteomyelitis PMFSH Past Medical History Medical History Diabetes Essential hypertension History of left below knee amputation Mood disorder PAD (peripheral artery disease) Surgical History Surgical History History of femoral angiogram History of left below knee amputation Pacemaker Social History Social History Household Members: Unknown / Unable to assess Housing: Unknown / Unable to assess Unable to assess alcohol history related to: Unknown Alcohol intake: current Alcohol intake frequency: holidays/special occasions only Patient Tobacco Use Status: Never used Tobacco Smoked in Last 30 Days: No Use of substances other than those prescribed or required for medical reasons: No Advance Directives: No Advance Directives Information Provided: Yes Do you have thoughts of harming others: None Do you have a plan to hurt others: No Plan Recently lost weight without trying: Unsure Nutrition Risks: No Nutritional Risk Patient : No Poor oral hygiene: No Meds Allergies Allergy/AdvReac Type Severity Reaction Status Date / Time penicillin V Allergy Unknown RSH,ITCHY Verified 10/22/22 00:14 Active Medications: Current Medications Acetaminophen (Acetaminophen 325 Mg Tablet) 650 mg PO Q6H PRN PRN Reason: Pain, Mild (Pain Scale 1-3) Amlodipine Besylate (Amlodipine Besylate 5 Mg Tablet) 5 mg PO DAILY [facility]; Protocol Last Admin: 10/22/22 10:05 Dose: 5 mg Atorvastatin Calcium (Atorvastatin Calcium 40 Mg Tablet) 40 mg PO DAILY [facility] Dextrose (Dextrose 50 % 25 Gm/50 Ml Syringe) 25 gm IVPUSH Q15M PRN; Protocol PRN Reason: per Hypoglycemia Standing Ord. Enoxaparin Sodium (Enoxaparin Sodium 40 Mg/0.4 Ml Syringe) 40 mg SUBCUT Q24H [facility] Last Admin: 10/21/22 22:37 Dose: 40 mg Glucose (Glucose Gel 15 Gm Gel..Gram.) 15 gm PO Q15M PRN; Protocol PRN Reason: per Hypoglycemia Standing Ord. Cefepime HCl 2 gm/ Sodium (Chloride) 50 mls @ 100 mls/hr IV Q12H [facility] Last Infusion: 10/22/22 09:54 Dose: Infused Vancomycin HCl 750 mg/ Sodium (Chloride) 265 mls @ 265 mls/hr IV Q24H [facility] Insulin Glargine (Insulin Glargine,Hum.Rec.Anlog 100 Unit/Ml 10 Ml Vial) 50 unit SUBCUT BEDTIME [facility] Last Admin: 10/22/22 00:00 Dose: 50 unit Insulin Human Lispro (Insulin Lispro 100 Unit/Ml 3 Ml Vial) 0 unit SUBCUT QIDACHS [facility]; Protocol Last Admin: 10/22/22 12:16 Dose: 2 unit Lisinopril (Lisinopril 20 Mg Tablet) 20 mg PO DAILY [facility]; Protocol Melatonin (Melatonin 3 Mg Tablet) 6 mg PO BEDTIME PRN PRN Reason: Insomnia Ondansetron HCl (Ondansetron Hcl 4 Mg/2 Ml Vial) 4 mg IVPUSH Q8H PRN PRN Reason: Nausea and Vomiting Pharmacy Consult (Consult Rx Perform Med Rec) 1 each MISCELLANE ONCE PRN PRN Reason: Consult order Pharmacy Consult (Consult Rx Vancomycin Dosing) 1 each MISCELLANE DAILY PRN PRN Reason: Consult order Sodium Chloride (0.9 % Sodium Chloride Flush 3 Ml Syringe) 3 ml IVFLUSH QSHIFT [facility] Last Admin: 10/22/22 09:04 Dose: 3 ml Trazodone HCl (Trazodone Hcl 50 Mg Tablet) 50 mg PO BEDTIME [facility] Home Medications Medication Instructions Recorded Confirmed Last Taken Type blood sugar diagnostic #10 ea 06/11/20 Unknown History insulin aspart U-100 100 unit/mL 20 unit subcut TIDAC 06/11/20 10/21/22 Unknown History (3 mL) subcutaneous pen lancets 28 gauge #100 ea 06/11/20 Unknown History lisinopril 20 mg tablet 20 mg PO DAILY 06/11/20 10/21/22 Unknown History pen needle, diabetic 31 gauge x #50 ea 06/11/20 Unknown History 1/ insulin degludec 200 unit/mL (3 60 unit subcut BEDTIME 07/20/21 10/21/22 Unknown History mL) subcutaneous pen (Tresiba FlexTouch U-200 insulin) pen needle, diabetic 31 gauge x #50 ea 07/20/21 Unknown History amlodipine 5 mg tablet 1 tab PO DAILY 10/22/22 10/22/22 Unknown History aspirin 81 mg chewable tablet PO DAILY 10/22/22 Unknown History atorvastatin 40 mg tablet 1 tab PO DAILY 10/22/22 10/22/22 Unknown History trazodone 50 mg tablet 1 tab PO BEDTIME 10/22/22 10/22/22 Unknown History Physical Exam Vital Signs: Vital Signs: Last Vital Signs Temp 97.8 F 10/22/22 07:52 Pulse 73 10/22/22 07:52 Resp 18 10/22/22 07:52 BP 157/72 H 10/22/22 07:52 Pulse Ox 96 10/22/22 07:52 O2 Del Method 10/22/22 07:52 BMI result Body Mass Index 22.8 Const: General: cooperative, healthy appearing, comfortable and no acute distress Resp: Effort & Inspection: normal respiratory effort and able to speak in complete sentences Skin: Other: left bka stump right side - the great toe has a dry crusted wound no discharge not tender no sig redness no palpable pusles Results Labs 10/22/22 05:16 10/22/22 05:16 Labs: Abnormal lab results 10/21/22 10/22/22 10/22/22 Range/Units 23:36 05:16 05:16 WBC 4.6 L (4.8-10.8) X10*3/uL RBC 4.01 L (4.20-5.50) X10*6/uL Hgb 11.0 L (12.0-16.0) g/dl Hct 34.1 L (37.0-47.0) % [place] % (Auto) 13.0 H (2-11) % BUN 38 H (9-16) mg/dL POC Glucose 158 H (60-115) mg/dL Random Glucose 144 H (60-115) mg/dL 10/22/22 10/22/22 Range/Units 07:50 11:25 WBC (4.8-10.8) X10*3/uL RBC (4.20-5.50) X10*6/uL Hgb (12.0-16.0) g/dl Hct (37.0-47.0) % [place] % (Auto) (2-11) % BUN (9-16) mg/dL POC Glucose 153 H 282 H (60-115) mg/dL Random Glucose (60-115) mg/dL Short CBC 10/22/22 Range/Units 05:16 WBC 4.6 L (4.8-10.8) X10*3/uL Hgb 11.0 L (12.0-16.0) g/dl Hct 34.1 L (37.0-47.0) % Plt Count 241 (160-400) X10*3/uL BMP 10/22/22 05:16 Sodium 137 Potassium 4.3 Chloride 104 Carbon Dioxide 22 BUN 38 H Creatinine 1.23 Calcium 8.7 D All other labs normal. Assessment and Plan (1) Osteomyelitis: Status: Acute Plan 71 year old female with diabetes and PAD s/p right bka and now with left foot toe wound and cellullitis drydoing well - osteo of distal phalnx - acute. plan to treat with iv antibx betadine paint the great toe wound area - no need to debride or drain - relatively dry consider repeat LACI on monday and fu with dr Puentes as outpt Time Spent With Patient Time: Total time managing care of this patient today ____ minutes. Procedures Date of Service Date of Service: 10/22/22
[2022-10-22 15:53] VITALS: BP 169/72; PULSE 76; RESP 16; TEMP 37.8; O2SAT 99
[2022-10-22 16:32] LABS: Glucose, Whole Blood 255 mg/dL (60-115)
[2022-10-22 19:35] VITALS: BP 142/75; PULSE 85; RESP 15; TEMP 37; O2SAT 97
[2022-10-22 20:23] LABS: Glucose, Whole Blood 234 mg/dL (60-115)
[2022-10-22] MEDS: Enoxaparin Sodium 40 MG/0.4 ML SYRINGE SUBCUT (21:28)
[2022-10-22] MEDS: traZODone HCL 50 MG TABLET PO (21:28)
[2022-10-22] MEDS: vancomycin HCL 750 MG in 0.9 % Sodium Chloride 250 ML 265 MG IV (21:30)
[2022-10-22] MEDS: Insulin Glargine,Hum.rec.anlog 100 UNIT/ML 10 ML VIAL 50 UNIT SUBCUT ×2 (21:31)
[2022-10-23] MEDS: 0.9 % Sodium Chloride Flush 3 ML SYRINGE IVFLUSH ×3 (00:21→17:40)
[2022-10-23 03:18] VITALS: BP 123/64; PULSE 76; RESP 18; TEMP 36.3; O2SAT 95
[2022-10-23 07:47] LABS: Glucose, Whole Blood 98 mg/dL (60-115)
[2022-10-23 08:00] VITALS: BP 122/70; PULSE 78; RESP 18; TEMP 36.4; O2SAT 97
[2022-10-23] MEDS: lisinopriL 20 MG TABLET PO (09:26)
[2022-10-23] MEDS: amLODIPine Besylate 5 MG TABLET PO (09:26)
[2022-10-23] MEDS: Atorvastatin Calcium 40 MG TABLET PO (09:26)
[2022-10-23] MEDS: cefEPime HCl 2 GM in 0.9 % Sodium Chloride 50 ML IV ×2 (09:27→21:40)
[2022-10-23 11:14] LABS: Glucose, Whole Blood 189 mg/dL (60-115)
[2022-10-23] MEDS: Insulin Lispro 100 UNIT/ML 3 ML VIAL SUBCUT ×3 (12:14→21:41)
--- NOTE | 2022-10-23 13:46 | HO.PM.IMPN ---
Subjective Subjective Date of Service: 10/23/22 Interval History: history obtained via child center assistant patient offers no complaints, denies toe pain, no fevers, no chills, no other acute issues overnight tolerating diet. Review of Systems Review of Systems: Yes all other systems are reviewed and are negative Physical Exam Vital Signs: Vital Signs: Last Vital Signs Temp 97.6 F 10/23/22 08:00 Pulse 78 10/23/22 08:00 Resp 18 10/23/22 08:00 BP 122/70 10/23/22 08:00 Pulse Ox 97 10/23/22 08:00 O2 Del Method 10/23/22 08:00 BMI result Body Mass Index 22.8 Const: Other: General awake alert resting comfortably in no distress ?Neck supple, no?JVD CVS Regular rate and rhythm, S1-S2 heard Resp? clear to auscultation bilaterally, nowheezing or crackles GI Abdomen soft, nontender, no guarding, no rigidity Neuro nonfocal extremities no edema Musculoskeletal:? Left AKA, right?great toe with cellulitis and non healing wound, no drainage, no tenderness Psych:? appropriate affect Objective Data Active Medications Acetaminophen (Acetaminophen 325 Mg Tablet) 650 mg PO Q6H PRN PRN Reason: Pain, Mild (Pain Scale 1-3) Amlodipine Besylate (Amlodipine Besylate 5 Mg Tablet) 5 mg PO DAILY [facility]; Protocol Last Admin: 10/23/22 09:26 Dose: 5 mg Documented By: MAYELIN Atorvastatin Calcium (Atorvastatin Calcium 40 Mg Tablet) 40 mg PO DAILY [facility] Last Admin: 10/23/22 09:26 Dose: 40 mg Documented By: MAYELIN Dextrose (Dextrose 50 % 25 Gm/50 Ml Syringe) 25 gm IVPUSH Q15M PRN; Protocol PRN Reason: per Hypoglycemia Standing Ord. Enoxaparin Sodium (Enoxaparin Sodium 40 Mg/0.4 Ml Syringe) 40 mg SUBCUT Q24H [facility] Last Admin: 10/22/22 21:28 Dose: 40 mg Documented By: ROB Glucose (Glucose Gel 15 Gm Gel..Gram.) 15 gm PO Q15M PRN; Protocol PRN Reason: per Hypoglycemia Standing Ord. Cefepime HCl 2 gm/ Sodium (Chloride) 50 mls @ 100 mls/hr IV Q12H [facility] Last Infusion: 10/23/22 11:03 Dose: 0 mls/hr Documented By: MAYELIN Vancomycin HCl 750 mg/ Sodium (Chloride) 265 mls @ 265 mls/hr IV Q24H [facility] Last Infusion: 10/22/22 23:14 Dose: 0 mls/hr Documented By: ROB Insulin Glargine (Insulin Glargine,Hum.Rec.Anlog 100 Unit/Ml 10 Ml Vial) 50 unit SUBCUT BEDTIME [facility] Last Admin: 10/22/22 21:31 Dose: 50 unit Documented By: ROB Insulin Human Lispro (Insulin Lispro 100 Unit/Ml 3 Ml Vial) 0 unit SUBCUT QIDACHS [facility]; Protocol Last Admin: 10/23/22 12:14 Dose: 1 unit Documented By: MAYELIN Lisinopril (Lisinopril 20 Mg Tablet) 20 mg PO DAILY [facility]; Protocol Last Admin: 10/23/22 09:26 Dose: 20 mg Documented By: MAYELIN Melatonin (Melatonin 3 Mg Tablet) 6 mg PO BEDTIME PRN PRN Reason: Insomnia Ondansetron HCl (Ondansetron Hcl 4 Mg/2 Ml Vial) 4 mg IVPUSH Q8H PRN PRN Reason: Nausea and Vomiting Pharmacy Consult (Consult Rx Perform Med Rec) 1 each MISCELLANE ONCE PRN PRN Reason: Consult order Pharmacy Consult (Consult Rx Vancomycin Dosing) 1 each MISCELLANE DAILY PRN PRN Reason: Consult order Sodium Chloride (0.9 % Sodium Chloride Flush 3 Ml Syringe) 3 ml IVFLUSH QSHIFT [facility] Last Admin: 10/23/22 09:27 Dose: 3 ml Documented By: MAYELIN Trazodone HCl (Trazodone Hcl 50 Mg Tablet) 50 mg PO BEDTIME [facility] Last Admin: 10/22/22 21:28 Dose: 50 mg Documented By: ROB Labs 10/22/22 05:16 10/22/22 05:16 Labs: Laboratory Results - last 24 hr 10/22/22 10/22/22 10/23/22 16:29 20:15 07:42 POC Glucose 255 H 234 H 98 10/23/22 11:09 POC Glucose 189 H Microbiology Microbiology Results: Microbiology 10/21/22 22:33 Blood Culture - Preliminary Blood - Venous No growth after 24 hours. 10/21/22 22:33 Blood Culture - Preliminary Blood - Venous No growth after 24 hours. Assessment and Plan (1) Osteomyelitis: Status: Acute (2) Hypertension: Status: Acute (3) PAD (peripheral artery disease): Status: Acute Plan 71-year-old female with pertinent history of essential hypertension, insulin-dependent diabetes mellitus, mood disorder, peripheral arterial disease status post left AKA presents to the emergency department for evaluation of injury to right great toe. #.? Right great toe cellulitis with imaging concerning for Distal 1st digit osteomyelitis, no sepsis no fevers, no leukocytosis, normal lactic acid on IV cefepime and vancomycin day 2 ? seen by General surgery no debridement recommended, apply Betadine, repeat LACI studies on Monday, consulted Infectious Disease for choice and duration of antibiotic, Blood cultures pending #.? Peripheral arterial disease status post left AKA: On asa and high-intensity statin #.? Hypertensive urgency with essential hypertension:? BP improved on home medication lisinopril 20 mg and Norvasc 5 mg follow BP closelyi #.? Uncontrolled insulin-dependent diabetes mellitus with hyperglycemia:? on Tresiba 60 units at bedtime, and pre meal insulin 20 units t.i.d., at home placed on insulin sliding scale, diabetic diet and Lantus 50 units at bedtime #.? Mood disorder: Continue home mood stabilizers DVT prophylaxis:? Lovenox 40 mg daily Full code patient will need continued inpatient hospitalization for treatment of right great toe cellulitis/ osteomyelitis requiring IV antibiotics. Time Spent With Patient Time: Total time managing care of this patient today ____ minutes. Quality Stroke Does the patient have a stroke diagnosis?: No VTE Prior VTE?: No VTE Risk Level:: Medical - moderate - high VTE Device Contraindication: Treatment Not Indicated VTE Drug Contraindication: N/A - Med Ordered
--- NOTE | 2022-10-23 14:54 | MHC.CM.PN ---
CM SPOKE TO PTS DAUGHTER, JOS ([phone]) WHO REPORTS THE PT LIVES WITH HER BROTHER (PTS SON) SHE SAYS PT IS INDEPENDENT WITH CARE AND USES NO DME/SERVICES PT IS NOT COVID [employer]AX SHE SAYS PT GOES TO [facility] FOR PRIMARY CARE, SHE BELIEVES JORGE AVELAR IS THE PROVIDER PT DOES NOT HAVE A HCP, DOCUMENT AND INFORMATION PROVIDED. THEY ARE AWARE CM CAN ASSIST WITH COMPLETION IMM DELIVERED CURRENT DCP IS HOME VS HOME WITH [facility] AND [facility] FAMILY TO TRANSPORT [facility] REFERRALS MADE IN THE EVENT PT REQUIRES LT IV ABX
[2022-10-23 15:40] VITALS: BP 150/70; PULSE 70; RESP 16; TEMP 36.3; O2SAT 97
[2022-10-23 16:34] LABS: Glucose, Whole Blood 210 mg/dL (60-115)
[2022-10-23 19:42] VITALS: BP 143/67; PULSE 70; RESP 16; TEMP 36.9; O2SAT 96
--- NOTE | 2022-10-23 20:15 | P.PNGS_ITS ---
Subjective Subjective Date of Service: 10/23/22 Interval history: Patient is feeling fine no new issues in her toe feels good Physical Exam Vital Signs: Vital Signs: Last Vital Signs Temp 98.4 F 10/23/22 19:42 Pulse 70 10/23/22 19:42 Resp 16 10/23/22 19:42 BP 143/67 H 10/23/22 19:42 Pulse Ox 96 10/23/22 19:42 O2 Del Method 10/23/22 19:42 BMI result Body Mass Index 22.8 Skin: Other: The tip of her right great toe has someCrusted scab that looks good and organize no drainage around and the rest of the foot looks good. Objective Data Active Medications Acetaminophen (Acetaminophen 325 Mg Tablet) 650 mg PO Q6H PRN PRN Reason: Pain, Mild (Pain Scale 1-3) Amlodipine Besylate (Amlodipine Besylate 5 Mg Tablet) 5 mg PO DAILY [facility]; Protocol Last Admin: 10/23/22 09:26 Dose: 5 mg Documented By: MAYELIN Atorvastatin Calcium (Atorvastatin Calcium 40 Mg Tablet) 40 mg PO DAILY [facility] Last Admin: 10/23/22 09:26 Dose: 40 mg Documented By: MAYELIN Dextrose (Dextrose 50 % 25 Gm/50 Ml Syringe) 25 gm IVPUSH Q15M PRN; Protocol PRN Reason: per Hypoglycemia Standing Ord. Enoxaparin Sodium (Enoxaparin Sodium 40 Mg/0.4 Ml Syringe) 40 mg SUBCUT Q24H [facility] Last Admin: 10/22/22 21:28 Dose: 40 mg Documented By: ROB Glucose (Glucose Gel 15 Gm Gel..Gram.) 15 gm PO Q15M PRN; Protocol PRN Reason: per Hypoglycemia Standing Ord. Cefepime HCl 2 gm/ Sodium (Chloride) 50 mls @ 100 mls/hr IV Q12H [facility] Last Infusion: 10/23/22 11:03 Dose: 0 mls/hr Documented By: MAYELIN Vancomycin HCl 750 mg/ Sodium (Chloride) 265 mls @ 265 mls/hr IV Q24H [facility] Last Infusion: 10/22/22 23:14 Dose: 0 mls/hr Documented By: ROB Insulin Glargine (Insulin Glargine,Hum.Rec.Anlog 100 Unit/Ml 10 Ml Vial) 50 unit SUBCUT BEDTIME [facility] Last Admin: 10/22/22 21:31 Dose: 50 unit Documented By: ROB Insulin Human Lispro (Insulin Lispro 100 Unit/Ml 3 Ml Vial) 0 unit SUBCUT QIDACHS [facility]; Protocol Last Admin: 10/23/22 17:40 Dose: 4 unit Documented By: MAYELIN Lisinopril (Lisinopril 20 Mg Tablet) 20 mg PO DAILY [facility]; Protocol Last Admin: 10/23/22 09:26 Dose: 20 mg Documented By: MAYELIN Melatonin (Melatonin 3 Mg Tablet) 6 mg PO BEDTIME PRN PRN Reason: Insomnia Ondansetron HCl (Ondansetron Hcl 4 Mg/2 Ml Vial) 4 mg IVPUSH Q8H PRN PRN Reason: Nausea and Vomiting Pharmacy Consult (Consult Rx Perform Med Rec) 1 each MISCELLANE ONCE PRN PRN Reason: Consult order Pharmacy Consult (Consult Rx Vancomycin Dosing) 1 each MISCELLANE DAILY PRN PRN Reason: Consult order Sodium Chloride (0.9 % Sodium Chloride Flush 3 Ml Syringe) 3 ml IVFLUSH QSHIFT [facility] Last Admin: 10/23/22 17:40 Dose: 3 ml Documented By: MAYELIN Trazodone HCl (Trazodone Hcl 50 Mg Tablet) 50 mg PO BEDTIME [facility] Last Admin: 10/22/22 21:28 Dose: 50 mg Documented By: ROB Labs 10/22/22 05:16 10/22/22 05:16 Labs: Laboratory Results - last 24 hr 10/22/22 10/23/22 10/23/22 20:15 07:42 11:09 POC Glucose 234 H 98 189 H 10/23/22 16:26 POC Glucose 210 H Microbiology Microbiology Results: Microbiology 10/21/22 22:33 Blood Culture - Preliminary Blood - Venous No growth after 24 hours. 10/21/22 22:33 Blood Culture - Preliminary Blood - Venous No growth after 24 hours. Procedures Date of Service Date of Service: 10/23/22 Progress Note: A&P Assessment and plan (1) Osteomyelitis: Status: Acute Plan 71-year-old female with great toe wound and foot infection. The actual wound itself looks better. Continue IV antibiotics as per medical team. In regard to her vascular supply would consider getting repeat LACI ultrasound and have her follow-up with Dr. Puentes Time Spent With Patient Time: Total time managing care of this patient today ____ minutes. Quality Stroke Does the patient have a stroke diagnosis?: No VTE Prior VTE?: No VTE Risk Level:: Medical - moderate - high VTE Device Contraindication: Treatment Not Indicated VTE Drug Contraindication: N/A - Med Ordered
[2022-10-23 20:30] LABS: Vancomycin Random 13.2 mcg/mL (15-20)
[2022-10-23 20:54] LABS: Glucose, Whole Blood 177 mg/dL (60-115)
--- NOTE | 2022-10-23 21:23 | HE.PHANOTE ---
vancomycin addendum level after 2 doses came back at 13.2, scr that was ordered is still pending, may need to redraw this in am, for now keep same regimen will recheck level and scr
[2022-10-23] MEDS: vancomycin HCL 750 MG in 0.9 % Sodium Chloride 250 ML 265 MG IV (21:41)
[2022-10-23] MEDS: Enoxaparin Sodium 40 MG/0.4 ML SYRINGE SUBCUT (21:42)
[2022-10-23] MEDS: traZODone HCL 50 MG TABLET PO (21:42)
[2022-10-23] MEDS: Insulin Glargine,Hum.rec.anlog 100 UNIT/ML 10 ML VIAL 50 UNIT SUBCUT (21:42)
[2022-10-23 22:51] LABS: Creatinine Clr Calc Pharmacy 33.7; Estimated Glomerular Filt Rate 36
[2022-10-24 03:39] VITALS: BP 144/70; PULSE 70; RESP 16; TEMP 36.4; O2SAT 97
[2022-10-24 06:44] LABS: Estimated Glomerular Filt Rate 39
[2022-10-24 07:18] VITALS: BP 128/62; PULSE 69; RESP 16; TEMP 36.4; O2SAT 97
[2022-10-24 08:00] LABS: Glucose, Whole Blood 118 mg/dL (60-115)
[2022-10-24] MEDS: lisinopriL 20 MG TABLET PO (08:26)
[2022-10-24] MEDS: 0.9 % Sodium Chloride Flush 3 ML SYRINGE IVFLUSH ×2 (08:27→15:17)
[2022-10-24] MEDS: amLODIPine Besylate 5 MG TABLET PO (08:27)
[2022-10-24] MEDS: cefEPime HCl 2 GM in 0.9 % Sodium Chloride 50 ML IV (08:27)
[2022-10-24] MEDS: Atorvastatin Calcium 40 MG TABLET PO (08:27)
--- NOTE | 2022-10-24 10:15 | PM.CNGS ---
History of Present Illness Consult details Consult date: 10/24/22 Reason for consult: wound care Narrative: Very pleasant 71-year-old female well known to me with a history of prior left below-knee amputation presented to the hospital with nonhealing right great toe ulcer. She had been seen in the remote past and had failed for multiple follow-ups. In addition we did reach out to the daughter and she did not follow-up as well. She now presents to us for for vascular evaluation regarding nonhealing right great toe ulcer Review of Systems Review of Systems: Yes all other systems are reviewed and are negative Constitutional: Constitutional: Reports no additional constitutional complaints ENT: Reports Normal hearing present Cardiovascular: Cardiovascular: Denies chest pain, Denies chest pain at rest, Denies chest pain with activity and Denies pedal edema Respiratory: Respiratory: Denies cough Gastrointestinal: Gastrointestinal: Denies abdominal pain Musculoskeletal: Musculoskeletal: Denies abnormal gait, Denies muscle cramps and Denies radiating pain into limb Integumentary/Breasts: Skin/Breast: Denies skin ulcer and Denies wounds Neurologic: Reports Normal hearing present and Denies abnormal gait Psychiatric: Psychiatric: Reports no additional psychiatric complaints [facility] Past Medical History Medical History Diabetes Essential hypertension History of left below knee amputation Mood disorder PAD (peripheral artery disease) Surgical History Surgical History History of femoral angiogram History of left below knee amputation Pacemaker Social History Social History Household Members: Unknown / Unable to assess Housing: Unknown / Unable to assess Unable to assess alcohol history related to: Unknown Alcohol intake: current Alcohol intake frequency: holidays/special occasions only Patient Tobacco Use Status: Never used Tobacco Smoked in Last 30 Days: No Use of substances other than those prescribed or required for medical reasons: No Advance Directives: No Advance Directives Information Provided: Yes Do you have thoughts of harming others: None Do you have a plan to hurt others: No Plan Recently lost weight without trying: Unsure Nutrition Risks: No Nutritional Risk Patient : No Poor oral hygiene: No service: No Current occupational status: retired Meds Allergies Allergy/AdvReac Type Severity Reaction Status Date / Time penicillin V Allergy Unknown RSH,ITCHY Verified 10/22/22 00:14 Active Medications: Current Medications Acetaminophen (Acetaminophen 325 Mg Tablet) 650 mg PO Q6H PRN PRN Reason: Pain, Mild (Pain Scale 1-3) Amlodipine Besylate (Amlodipine Besylate 5 Mg Tablet) 5 mg PO DAILY [facility]; Protocol Last Admin: 10/24/22 08:27 Dose: 5 mg Atorvastatin Calcium (Atorvastatin Calcium 40 Mg Tablet) 40 mg PO DAILY [facility] Last Admin: 10/24/22 08:27 Dose: 40 mg Dextrose (Dextrose 50 % 25 Gm/50 Ml Syringe) 25 gm IVPUSH Q15M PRN; Protocol PRN Reason: per Hypoglycemia Standing Ord. Enoxaparin Sodium (Enoxaparin Sodium 40 Mg/0.4 Ml Syringe) 40 mg SUBCUT Q24H [facility] Last Admin: 10/23/22 21:42 Dose: 40 mg Glucose (Glucose Gel 15 Gm Gel..Gram.) 15 gm PO Q15M PRN; Protocol PRN Reason: per Hypoglycemia Standing Ord. Cefepime HCl 2 gm/ Sodium (Chloride) 50 mls @ 100 mls/hr IV Q12H [facility] Last Infusion: 10/24/22 09:08 Dose: Infused Vancomycin HCl 750 mg/ Sodium (Chloride) 265 mls @ 265 mls/hr IV Q24H [facility] Last Infusion: 10/23/22 23:18 Dose: Infused Insulin Glargine (Insulin Glargine,Hum.Rec.Anlog 100 Unit/Ml 10 Ml Vial) 50 unit SUBCUT BEDTIME [facility] Last Admin: 10/23/22 21:42 Dose: 50 unit Insulin Human Lispro (Insulin Lispro 100 Unit/Ml 3 Ml Vial) 0 unit SUBCUT QIDACHS [facility]; Protocol Last Admin: 10/24/22 08:08 Dose: Not Given Lisinopril (Lisinopril 20 Mg Tablet) 20 mg PO DAILY [facility]; Protocol Last Admin: 10/24/22 08:26 Dose: 20 mg Melatonin (Melatonin 3 Mg Tablet) 6 mg PO BEDTIME PRN PRN Reason: Insomnia Ondansetron HCl (Ondansetron Hcl 4 Mg/2 Ml Vial) 4 mg IVPUSH Q8H PRN PRN Reason: Nausea and Vomiting Pharmacy Consult (Consult Rx Perform Med Rec) 1 each MISCELLANE ONCE PRN PRN Reason: Consult order Pharmacy Consult (Consult Rx Vancomycin Dosing) 1 each MISCELLANE DAILY PRN PRN Reason: Consult order Sodium Chloride (0.9 % Sodium Chloride Flush 3 Ml Syringe) 3 ml IVFLUSH QSHIFT [facility] Last Admin: 10/24/22 08:27 Dose: 3 ml Trazodone HCl (Trazodone Hcl 50 Mg Tablet) 50 mg PO BEDTIME [facility] Last Admin: 10/23/22 21:42 Dose: 50 mg Home Medications Medication Instructions Recorded Confirmed Last Taken Type blood sugar diagnostic #10 ea 06/11/20 Unknown History insulin aspart U-100 100 unit/mL 20 unit subcut TIDAC 06/11/20 10/21/22 Unknown History (3 mL) subcutaneous pen lancets 28 gauge #100 ea 06/11/20 Unknown History lisinopril 20 mg tablet 20 mg PO DAILY 06/11/20 10/21/22 Unknown History pen needle, diabetic 31 gauge x #50 ea 06/11/20 Unknown History 1/4 insulin degludec 200 unit/mL (3 60 unit subcut BEDTIME 07/20/21 10/21/22 Unknown History mL) subcutaneous pen (Tresiba FlexTouch U-200 insulin) pen needle, diabetic 31 gauge x #50 ea 07/20/21 Unknown History 15 amlodipine 5 mg tablet 1 tab PO DAILY 10/22/22 10/22/22 Unknown History aspirin 81 mg chewable tablet PO DAILY 10/22/22 Unknown History atorvastatin 40 mg tablet 1 tab PO DAILY 10/22/22 10/22/22 Unknown History trazodone 50 mg tablet 1 tab PO BEDTIME 10/22/22 10/22/22 Unknown History Physical Exam Vital Signs: Vital Signs: Last Vital Signs Temp 97.6 F 10/24/22 07:18 Pulse 69 10/24/22 07:18 Resp 16 10/24/22 07:18 BP 128/62 10/24/22 07:18 Pulse Ox 97 10/24/22 07:18 O2 Del Method 10/24/22 07:18 BMI result Body Mass Index 22.8 Const: General: cooperative, healthy appearing and comfortable Orientation/consciousness: oriented to person, oriented to place and oriented to time HEENT: Head: Yes normal to inspection Neck: Neck: Yes normal visual inspection Carotids: no bruits Chest: Chest palpation & inspection: normal inspection of the chest Resp: Effort & Inspection: normal respiratory effort and able to speak in complete sentences Auscultation: clear to auscultation bilaterally, no crackles, no rales, no rhonchi and no wheezes Cardio: Rate: regular rate Rhythm: regular rhythm Heart sounds: S1 normal heart sound present and S2 normal heart sound present Bruits: no carotid bruits Peripheral pulses: Peripheral pulses 2+ throughout GI: Inspection: Yes normal to inspection Skin: Other: Right great toe poorly maintained nail bed. Medial and lateral ulcer on the great toe. Left BKA stump well-healed central dry portion but completely covered over. Wounds: no wounds Hair: normal Neuro: General: oriented to person, oriented to place and oriented to time Cranial nerves: Yes CN's II-XII intact bilaterally and Yes Normal hearing present Cognition (Neuro): normal cognition Motor exam (neuro): 5/5 motor strength present throughout Extrem: Other: venous exam: No significant superficial varicosities or spider telangiectasias, minimal edema General: No clubbing, No cyanosis and No edema Psych: Appearance: grossly normal Mental Status: mental status grossly normal Speech and movement: Normal speech and movement present Results Labs 10/22/22 05:16 10/24/22 05:25 Labs: Abnormal lab results 10/23/22 10/23/22 10/23/22 Range/Units 11:09 16:26 20:03 Creatinine (0.5-1.4) mg/dL POC Glucose 189 H 210 H (60-115) mg/dL Random Vancomycin 13.2 L (15-20) mcg/mL 10/23/22 10/23/22 10/24/22 Range/Units 20:03 20:43 07:35 Creatinine 1.43 H (0.5-1.4) mg/dL POC Glucose 177 H 118 H (60-115) mg/dL Random Vancomycin (15-20) mcg/mL [facility] 10/23/22 10/24/22 20:03 05:25 Creatinine 1.43 H 1.34 All other labs normal. Imaging Additional studies: Foot x-ray of 10/21/2022 suspicious for underlying osteomyelitis Assessment and Plan (1) PAD (peripheral artery disease): Status: Acute Plan In short patient has nonhealing right great toe ulcer. Left stump appears to be doing well. Unfortunately she does have a history of peripheral vascular disease and has not shown for follow-up. Will order noninvasive testing of the right lower extremity. I do suspect that the underlying osteomyelitis has to be treated. Will assess arterial status and proceed from there. Thank you for allowing us to assist in her care. If there are any questions or concerns please do not hesitate to contact us. Time Spent With Patient Time: Total time managing care of this patient today ____ minutes. Procedures Date of Service Date of Service: 10/24/22
[2022-10-24 11:27] LABS: Glucose, Whole Blood 164 mg/dL (60-115)
--- NOTE | 2022-10-24 11:38 | HO.PM.IMPN ---
Subjective Subjective Date of Service: 10/24/22 Interval History: resting comfortably offers no acute complaints, denies pain at right great toe, no fevers, no chills, no overnight events tolerating diet. Review of Systems Review of Systems: Yes all other systems are reviewed and are negative Physical Exam Vital Signs: Vital Signs: Last Vital Signs Temp 97.6 F 10/24/22 07:18 Pulse 69 10/24/22 07:18 Resp 16 10/24/22 07:18 BP 128/62 10/24/22 07:18 Pulse Ox 97 10/24/22 07:18 O2 Del Method 10/24/22 07:18 BMI result Body Mass Index 22.8 Const: Other: General awake, alert, resting comfortably in no distress. Neck supple, no?JVD CVS Regular rate and rhythm, S1-S2 heard Resp? clear to auscultation bilaterally, nowheezing or crackles GI Abdomen soft, nontender, no guarding, no rigidity,bs + Neuro nonfocal extremities no edema Musculoskeletal:?right?great toe dry ulcer, no drainage, no tenderness Psych:? appropriate affect Objective Data Active Medications Acetaminophen (Acetaminophen 325 Mg Tablet) 650 mg PO Q6H PRN PRN Reason: Pain, Mild (Pain Scale 1-3) Amlodipine Besylate (Amlodipine Besylate 5 Mg Tablet) 5 mg PO DAILY [facility]; Protocol Last Admin: 10/24/22 08:27 Dose: 5 mg Documented By: MAYELIN Atorvastatin Calcium (Atorvastatin Calcium 40 Mg Tablet) 40 mg PO DAILY [facility] Last Admin: 10/24/22 08:27 Dose: 40 mg Documented By: MAYELIN Dextrose (Dextrose 50 % 25 Gm/50 Ml Syringe) 25 gm IVPUSH Q15M PRN; Protocol PRN Reason: per Hypoglycemia Standing Ord. Enoxaparin Sodium (Enoxaparin Sodium 40 Mg/0.4 Ml Syringe) 40 mg SUBCUT Q24H [facility] Last Admin: 10/23/22 21:42 Dose: 40 mg Documented By: ROB Glucose (Glucose Gel 15 Gm Gel..Gram.) 15 gm PO Q15M PRN; Protocol PRN Reason: per Hypoglycemia Standing Ord. Cefepime HCl 2 gm/ Sodium (Chloride) 50 mls @ 100 mls/hr IV Q12H [facility] Last Infusion: 10/24/22 09:08 Dose: 0 mls/hr Documented By: MAYELIN Vancomycin HCl 750 mg/ Sodium (Chloride) 265 mls @ 265 mls/hr IV Q24H [facility] Last Infusion: 10/23/22 23:18 Dose: 0 mls/hr Documented By: ROB Insulin Glargine (Insulin Glargine,Hum.Rec.Anlog 100 Unit/Ml 10 Ml Vial) 50 unit SUBCUT BEDTIME [facility] Last Admin: 10/23/22 21:42 Dose: 50 unit Documented By: ROB Insulin Human Lispro (Insulin Lispro 100 Unit/Ml 3 Ml Vial) 0 unit SUBCUT QIDACHS [facility]; Protocol Last Admin: 10/24/22 08:08 Dose: Not Given Documented By: MAYELIN Non-Admin Reason: No Insulin Coverage Lisinopril (Lisinopril 20 Mg Tablet) 20 mg PO DAILY [facility]; Protocol Last Admin: 10/24/22 08:26 Dose: 20 mg Documented By: MAYELIN Melatonin (Melatonin 3 Mg Tablet) 6 mg PO BEDTIME PRN PRN Reason: Insomnia Ondansetron HCl (Ondansetron Hcl 4 Mg/2 Ml Vial) 4 mg IVPUSH Q8H PRN PRN Reason: Nausea and Vomiting Pharmacy Consult (Consult Rx Perform Med Rec) 1 each MISCELLANE ONCE PRN PRN Reason: Consult order Pharmacy Consult (Consult Rx Vancomycin Dosing) 1 each MISCELLANE DAILY PRN PRN Reason: Consult order Sodium Chloride (0.9 % Sodium Chloride Flush 3 Ml Syringe) 3 ml IVFLUSH QSHIFT [facility] Last Admin: 10/24/22 08:27 Dose: 3 ml Documented By: MAYELIN Trazodone HCl (Trazodone Hcl 50 Mg Tablet) 50 mg PO BEDTIME [facility] Last Admin: 10/23/22 21:42 Dose: 50 mg Documented By: ROB Labs 10/22/22 05:16 10/24/22 05:25 Labs: Laboratory Results - last 24 hr 10/23/22 10/23/22 10/23/22 16:26 20:03 20:03 Estim Creat Clear Calc 33.7 Estimated GFR 36 POC Glucose 210 H Random Vancomycin 13.2 L 10/23/22 10/24/22 10/24/22 20:43 05:25 07:35 Estim Creat Clear Calc 36.0 Estimated GFR 39 POC Glucose 177 H 118 H Random Vancomycin 10/24/22 11:10 Estim Creat Clear Calc Estimated GFR POC Glucose 164 H Random Vancomycin Microbiology Microbiology Results: Microbiology 10/21/22 22:33 Blood Culture - Preliminary Blood - Venous No growth after 48 hours. 10/21/22 22:33 Blood Culture - Preliminary Blood - Venous No growth after 48 hours. Assessment and Plan (1) Osteomyelitis: Status: Acute (2) Hypertension: Status: Acute (3) PAD (peripheral artery disease): Status: Acute Plan 71-year-old female with pertinent history of essential hypertension, insulin-dependent diabetes mellitus, mood disorder, peripheral arterial disease status post left AKA presents to the emergency department for evaluation of injury to right great toe. #.? Right great toe nonhealing ulcer, cellulitis with imaging concerning for Distal 1st digit osteomyelitis, no sepsis no fevers, no leukocytosis, normal lactic acid, redness improved on IV cefepime and vancomycin day 3 , blood cultures times 48 hours negative ? seen by General surgery no debridement recommended, apply Betadine, vascular surgery consult obtained noninvasive vascular testing ordered consulted Infectious Disease for choice and duration of antibiotic, #.? Peripheral arterial disease status post left bka: On asa and statin #.? Hypertensive urgency with essential hypertension:? BP improved on home medication lisinopril 20 mg and Norvasc 5 mg follow BP closelyi #.? Uncontrolled insulin-dependent diabetes mellitus with hyperglycemia:? on Tresiba 60 units at bedtime, and pre meal insulin 20 units t.i.d., at home placed on insulin sliding scale, diabetic diet and Lantus 50 units at bedtime #.? Mood disorder: Continue home mood stabilizers DVT prophylaxis:? Lovenox 40 mg daily Full code patient will need continued inpatient hospitalization for treatment of right great toe cellulitis/ osteomyelitis requiring IV antibiotics. Time Spent With Patient Time: Total time managing care of this patient today ____ minutes. Quality Stroke Does the patient have a stroke diagnosis?: No VTE Prior VTE?: No VTE Risk Level:: Medical - moderate - high VTE Device Contraindication: Treatment Not Indicated VTE Drug Contraindication: N/A - Med Ordered
[2022-10-24] MEDS: Insulin Lispro 100 UNIT/ML 3 ML VIAL SUBCUT ×3 (12:29→20:47)
[2022-10-24] MEDS: DAPTOmycin 500 MG in 0.9 % Sodium Chloride 50 ML 103.95 MG IV (15:17)
--- NOTE | 2022-10-24 15:18 | W.PM.IDCN ---
History of Present Illness Data of Consult Service Date: 10/24/22 Requesting physician: Marlyn Rodriguez Primary Care Provider: None Physician HPI Reason for consult: right great toe infection She presents with right great toe swelling and discomfort ,worse over last two weeks. Area is dry and has open ulcer. She has GFR of 36. She has left BKA. Review of Systems Review of Systems: Yes all other systems are reviewed and are negative [facility] Past Medical History Medical History Diabetes Essential hypertension History of left below knee amputation Mood disorder PAD (peripheral artery disease) Family History Family history: reviewed and not pertinent Surgical History Surgical History History of femoral angiogram History of left below knee amputation Pacemaker Social History Social History Household Members: Unknown / Unable to assess Housing: Unknown / Unable to assess Unable to assess alcohol history related to: Unknown Alcohol intake: current Alcohol intake frequency: holidays/special occasions only Patient Tobacco Use Status: Never used Tobacco Smoked in Last 30 Days: No Use of substances other than those prescribed or required for medical reasons: No Advance Directives: No Advance Directives Information Provided: Yes Do you have thoughts of harming others: None Do you have a plan to hurt others: No Plan Recently lost weight without trying: Unsure Nutrition Risks: No Nutritional Risk Patient : No Poor oral hygiene: No service: No Current occupational status: retired Meds Allergies Allergy/AdvReac Type Severity Reaction Status Date / Time penicillin V Allergy Unknown RSH,ITCHY Verified 10/22/22 00:14 Active Medications: Current Medications Acetaminophen (Acetaminophen 325 Mg Tablet) 650 mg PO Q6H PRN PRN Reason: Pain, Mild (Pain Scale 1-3) Amlodipine Besylate (Amlodipine Besylate 5 Mg Tablet) 5 mg PO DAILY [facility]; Protocol Last Admin: 10/24/22 08:27 Dose: 5 mg Atorvastatin Calcium (Atorvastatin Calcium 40 Mg Tablet) 40 mg PO DAILY [facility] Last Admin: 10/24/22 08:27 Dose: 40 mg Enoxaparin Sodium (Enoxaparin Sodium 40 Mg/0.4 Ml Syringe) 40 mg SUBCUT Q24H [facility] Last Admin: 10/23/22 21:42 Dose: 40 mg Glucose (Glucose Gel 15 Gm Gel..Gram.) 15 gm PO Q15M PRN; Protocol PRN Reason: per Hypoglycemia Standing Ord. Dextrose (D10) 250 mls @ 750 mls/hr IV Q15M PRN; Protocol PRN Reason: per Hypoglycemia Standing Ord. Daptomycin 500 mg/ Sodium (Chloride) 60 mls @ 103.946 mls/hr IV Q24H [facility] Insulin Glargine (Insulin Glargine,Hum.Rec.Anlog 100 Unit/Ml 10 Ml Vial) 50 unit SUBCUT BEDTIME [facility] Last Admin: 10/23/22 21:42 Dose: 50 unit Insulin Human Lispro (Insulin Lispro 100 Unit/Ml 3 Ml Vial) 0 unit SUBCUT QIDACHS [facility]; Protocol Last Admin: 10/24/22 12:29 Dose: 2 unit Lisinopril (Lisinopril 20 Mg Tablet) 20 mg PO DAILY [facility]; Protocol Last Admin: 10/24/22 08:26 Dose: 20 mg Melatonin (Melatonin 3 Mg Tablet) 6 mg PO BEDTIME PRN PRN Reason: Insomnia Ondansetron HCl (Ondansetron Hcl 4 Mg/2 Ml Vial) 4 mg IVPUSH Q8H PRN PRN Reason: Nausea and Vomiting Pharmacy Consult (Consult Rx Perform Med Rec) 1 each MISCELLANE ONCE PRN PRN Reason: Consult order Sodium Chloride (0.9 % Sodium Chloride Flush 3 Ml Syringe) 3 ml IVFLUSH QSHIFT [facility] Last Admin: 10/24/22 08:27 Dose: 3 ml Trazodone HCl (Trazodone Hcl 50 Mg Tablet) 50 mg PO BEDTIME [facility] Last Admin: 10/23/22 21:42 Dose: 50 mg Home Medications Medication Instructions Recorded Confirmed Last Taken Type blood sugar diagnostic #10 ea 06/11/20 Unknown History insulin aspart U-100 100 unit/mL 20 unit subcut TIDAC 06/11/20 10/21/22 Unknown History (3 mL) subcutaneous pen lancets 28 gauge #100 ea 06/11/20 Unknown History lisinopril 20 mg tablet 20 mg PO DAILY 06/11/20 10/21/22 Unknown History pen needle, diabetic 31 gauge x #50 samantha 06/11/20 Unknown History 1/4 insulin degludec 200 unit/mL (3 60 unit subcut BEDTIME 11/30/21 03/03/23 Unknown History mL) subcutaneous pen (Tresiba FlexTouch U-200 insulin) pen needle, diabetic 31 gauge x #50 ea 07/20/21 Unknown History amlodipine 5 mg tablet 1 tab PO DAILY 10/22/22 10/22/22 Unknown History aspirin 81 mg chewable tablet PO DAILY 10/22/22 Unknown History atorvastatin 40 mg tablet 1 tab PO DAILY 10/22/22 10/22/22 Unknown History trazodone 50 mg tablet 1 tab PO BEDTIME 10/22/22 10/22/22 Unknown History Physical Exam Vital Signs: Vital Signs: Last Vital Signs Temp 97.6 F 10/24/22 07:18 Pulse 69 10/24/22 07:18 Resp 16 10/24/22 07:18 BP 128/62 10/24/22 07:18 Pulse Ox 97 10/24/22 07:18 O2 Del Method 10/24/22 07:18 BMI result Body Mass Index 22.8 Const: General: cooperative HEENT: Head: Yes normal to inspection Face and sinus: Yes normal facial exam Mouth: Normal oral and palatal mucosa present Teeth and gingiva: dentition normal Eyes: General: appearance normal, both eyes and all related structures Pupils: Equal, round and reactive pupils present Resp: Effort & Inspection: normal respiratory effort Cardio: Rate: regular rate Rhythm: regular rhythm GI: Palpation (GI): Soft to palpation and nontender : General: Yes no CVA tenderness Back/Spine/Pelvis: Back: no CVA tenderness Skin: General skin exam: no rashes or lesions noted Neuro: General: moves all extremities Cranial nerves: Yes Equal, round and reactive pupils present Extrem: Other: left BKA right dry ulcer tip great toe,difficult to probe no cellulitis Psych: Appearance: grossly normal Results Labs 10/22/22 05:16 10/24/22 05:25 Labs: BMP 10/23/22 10/24/22 20:03 05:25 Creatinine 1.43 H 1.34 Microbiology Microbiology Results: Microbiology 10/21/22 22:33 Blood - Venous Blood Culture - Preliminary No growth after 48 hours. 10/21/22 22:33 Blood - Venous Blood Culture - Preliminary No growth after 48 hours. Assessment and Plan (1) Osteomyelitis: Status: Acute She has likely right great toe osteomyelitis. She has PAD and left BKA. GFR is 36. Plan Daptomycin renal dose adjust 6 mg/kg for total six weeks. Follow with me and Vascular Weekly CK ,creatinine and CBC This drug may interact with statin. Time Spent With Patient Time: Total time managing care of this patient today ____ minutes.
[2022-10-24 15:42] VITALS: BP 175/80; PULSE 71; RESP 17; TEMP 36.8; O2SAT 98
[2022-10-24 16:33] LABS: Glucose, Whole Blood 182 mg/dL (60-115)
[2022-10-24 19:34] VITALS: BP 154/68; PULSE 65; RESP 16; TEMP 36.6; O2SAT 99
[2022-10-24 20:28] LABS: Glucose, Whole Blood 206 mg/dL (60-115)
[2022-10-24 20:32] LABS: Vancomycin Trough 13.1 mcg/mL (10.0-20.0)
[2022-10-24] MEDS: traZODone HCL 50 MG TABLET PO (20:48)
[2022-10-24] MEDS: Insulin Glargine,Hum.rec.anlog 100 UNIT/ML 10 ML VIAL 50 UNIT SUBCUT (20:48)
[2022-10-24] MEDS: Enoxaparin Sodium 40 MG/0.4 ML SYRINGE SUBCUT (20:49)
[2022-10-25] MEDS: 0.9 % Sodium Chloride Flush 3 ML SYRINGE IVFLUSH ×3 (00:15→21:01)
[2022-10-25 03:23] VITALS: BP 132/66; PULSE 68; RESP 18; TEMP 36.7; O2SAT 94
[2022-10-25 06:59] LABS: Hematocrit 30.9 % (37.0-47.0); Hemoglobin 9.8 g/dl (12.0-16.0); Mean Corpuscular HGB Conc 31.7 g/dl (31.0-35.0); Mean Corpuscular Hemoglobin 27.1 pg (27.0-33.0); Mean Corpuscular Volume 85.4 fL (80.0-98.0); Mean Platelet Volume 10.7 fL (9.4-12.3); Platelet Count 229 X10*3/uL (160-400); Red Blood Count 3.62 X10*6/uL (4.20-5.50); Red Cell Distribution Width 13.8 % (11.0-16.0); White Blood Count 4.2 X10*3/uL (4.8-10.8)
[2022-10-25 07:08] LABS: Anion Gap 14 (12-20); Blood Urea Nitrogen 37 mg/dL (9-16); Calcium 8.5 mg/dL (8.4-10.2); Carbon Dioxide 20 mmol/L (22-29); Chloride 106 mmol/L (96-108); Creatinine Clr Calc Pharmacy 39.3; Estimated Glomerular Filt Rate 43; Glucose Random 99 mg/dL (60-115); Potassium 4.7 mmol/L (3.3-5.1); Sodium 135 mmol/L (135-145)
[2022-10-25 07:41] VITALS: BP 138/72; PULSE 75; RESP 18; TEMP 36.6; O2SAT 97
[2022-10-25 07:47] LABS: Glucose, Whole Blood 92 mg/dL (60-115)
[2022-10-25] MEDS: amLODIPine Besylate 5 MG TABLET PO (08:36)
[2022-10-25] MEDS: lisinopriL 20 MG TABLET PO (08:36)
[2022-10-25] MEDS: Atorvastatin Calcium 40 MG TABLET PO (08:37)
--- NOTE | 2022-10-25 09:47 | HO.VASCPN ---
Subjective Subjective Date of Service: 10/25/22 Patient reports: no new complaints and feels better Interval history: Very pleasant 71-year-old female presents for follow-up regarding nonhealing right great toe ulcer. She has had a prior below-knee amputation by me for the other side. Appears to be doing relatively well. Had a noninvasive testing last night. Physical Exam Vital Signs: Vital Signs: Last Vital Signs Temp 98 F 10/25/22 07:41 Pulse 75 10/25/22 07:41 Resp 18 10/25/22 07:41 BP 138/72 10/25/22 07:41 Pulse Ox 97 10/25/22 07:41 O2 Del Method 10/25/22 07:41 BMI result Body Mass Index 22.8 Const: General: cooperative, healthy appearing and no acute distress Orientation/consciousness: oriented to person, oriented to place and oriented to time HEENT: Head: Yes normal to inspection Neck: Carotids: no bruits Chest: Chest palpation & inspection: normal inspection of the chest Resp: Effort & Inspection: normal respiratory effort and able to speak in complete sentences Auscultation: clear to auscultation bilaterally Cardio: Other: Right DP signal Rate: regular rate Heart sounds: S1 normal heart sound present and S2 normal heart sound present GI: Inspection: Yes normal to inspection Skin: Other: Right great toe ulcer with serous drainage General skin exam: no rashes or lesions noted Wounds: no wounds Neuro: General: oriented to person, oriented to place, oriented to time and CN's II-XI intact bilaterally Extrem: General: Yes normal to inspection, Yes full ROM and Yes no clubbing, cyanosis or edema Psych: Appearance: grossly normal and well kempt Speech and movement: Normal speech and movement present Affect: normal affect Progress Note: A&P Assessment and plan (1) PAD (peripheral artery disease): Status: Acute Assessment and Plan: Patient notes nonhealing right great toe ulcer. I have discussed the pathophysiology of peripheral vascular disease with the patient. I have also discussed risk factor modification. I have reviewed the patient's arterial testing which reveals right SFA disease. the patient would benefit from a right leg endovascular peripheral angiogram with possible angioplasty, stent, and/or atherectomy. This has been discussed in detail with the patient along with risks, benefits, and complications. This includes but is not limited to bleeding, infection, heart attack, need for emergent surgical repair, limb ischemia, blood vessel damage, bleeding, puncture, kidney injury, bruising, allergic reaction, and skin reaction. The patient demonstrates a clear understanding. We will schedule for the next appropriate time. Thank you for allowing us to assist in this patient's care. Time Spent With Patient Time: Total time managing care of this patient today ____ minutes. Procedures Date of Service Date of Service: 10/25/22 Quality Stroke Does the patient have a stroke diagnosis?: No VTE Prior VTE?: No VTE Risk Level:: Medical - moderate - high VTE Device Contraindication: Treatment Not Indicated VTE Drug Contraindication: N/A - Med Ordered
[2022-10-25 11:19] LABS: Glucose, Whole Blood 170 mg/dL (60-115)
[2022-10-25] MEDS: Insulin Lispro 100 UNIT/ML 3 ML VIAL SUBCUT ×2 (12:08→21:02)
--- NOTE | 2022-10-25 13:42 | HO.PM.IMPN ---
Subjective Subjective Date of Service: 10/25/22 Interval History: offers no acute complaints, denies pain at right great toe, no fevers, no chills, no overnight events tolerating diet. Review of Systems Review of Systems: Yes all other systems are reviewed and are negative Physical Exam Vital Signs: Vital Signs: Last Vital Signs Temp 98 F 10/25/22 07:41 Pulse 75 10/25/22 07:41 Resp 18 10/25/22 07:41 BP 138/72 10/25/22 07:41 Pulse Ox 97 10/25/22 07:41 O2 Del Method 10/25/22 07:41 BMI result Body Mass Index 22.8 Const: Other: General awake, alert, resting comfortably in no distress. Neck supple, no?JVD CVS Regular rate and rhythm, S1-S2 heard Resp? clear to auscultation bilaterally, nowheezing or crackles GI Abdomen soft, nontender, no guarding, no rigidity,bs + Neuro nonfocal extremities no edema Musculoskeletal:?right?great toe dry ulcer, minimal serosang drainage, no tenderness Psych:? appropriate affect Objective Data Active Medications Acetaminophen (Acetaminophen 325 Mg Tablet) 650 mg PO Q6H PRN PRN Reason: Pain, Mild (Pain Scale 1-3) Amlodipine Besylate (Amlodipine Besylate 5 Mg Tablet) 5 mg PO DAILY [facility]; Protocol Last Admin: 10/25/22 08:36 Dose: 5 mg Documented By: ALISTAIR Atorvastatin Calcium (Atorvastatin Calcium 40 Mg Tablet) 40 mg PO DAILY [facility] Last Admin: 10/25/22 08:37 Dose: 40 mg Documented By: ALISTAIR Enoxaparin Sodium (Enoxaparin Sodium 40 Mg/0.4 Ml Syringe) 40 mg SUBCUT Q24H [facility] Last Admin: 10/24/22 20:49 Dose: 40 mg Documented By: ROB Glucose (Glucose Gel 15 Gm Gel..Gram.) 15 gm PO Q15M PRN; Protocol PRN Reason: per Hypoglycemia Standing Ord. Dextrose (D10) 250 mls @ 750 mls/hr IV Q15M PRN; Protocol PRN Reason: per Hypoglycemia Standing Ord. Daptomycin 500 mg/ Sodium (Chloride) 60 mls @ 103.946 mls/hr IV Q24H [facility] Last Infusion: 10/24/22 16:55 Dose: 0 mls/hr Documented By: MAYELIN Sodium Chloride (Ns) 1,000 mls @ 100 mls/hr IVCONT .Q10H [facility] Insulin Glargine (Insulin Glargine,Hum.Rec.Anlog 100 Unit/Ml 10 Ml Vial) 50 unit SUBCUT BEDTIME [facility] Last Admin: 10/24/22 20:48 Dose: 50 unit Documented By: ROB Insulin Human Lispro (Insulin Lispro 100 Unit/Ml 3 Ml Vial) 0 unit SUBCUT QIDACHS [facility]; Protocol Last Admin: 10/25/22 12:08 Dose: 2 unit Documented By: ALISTAIR Lisinopril (Lisinopril 20 Mg Tablet) 20 mg PO DAILY [facility]; Protocol Last Admin: 10/25/22 08:36 Dose: 20 mg Documented By: ALISTAIR Melatonin (Melatonin 3 Mg Tablet) 6 mg PO BEDTIME PRN PRN Reason: Insomnia Ondansetron HCl (Ondansetron Hcl 4 Mg/2 Ml Vial) 4 mg IVPUSH Q8H PRN PRN Reason: Nausea and Vomiting Pharmacy Consult (Consult Rx Perform Med Rec) 1 each MISCELLANE ONCE PRN PRN Reason: Consult order Sodium Chloride (0.9 % Sodium Chloride Flush 3 Ml Syringe) 3 ml IVFLUSH QSHIFT [facility] Last Admin: 10/25/22 08:36 Dose: 3 ml Documented By: ALISTAIR Trazodone HCl (Trazodone Hcl 50 Mg Tablet) 50 mg PO BEDTIME [facility] Last Admin: 10/24/22 20:48 Dose: 50 mg Documented By: ROB Labs 10/25/22 05:25 10/25/22 05:25 Labs: Laboratory Results - last 24 hr 10/24/22 10/24/22 10/24/22 16:23 19:59 20:18 MCV MCH MCHC RDW Plt Count MPV Absolute Nucleated RBC Nucleated RBC % (auto) Anion Gap Estim Creat Clear Calc Estimated GFR POC Glucose 182 H 206 H Random Glucose Calcium Vancomycin Trough 13.1 10/25/22 10/25/22 10/25/22 05:25 05:25 07:42 MCV 85.4 MCH 27.1 MCHC 31.7 RDW 13.8 Plt Count 229 MPV 10.7 Absolute Nucleated RBC 0.000 Nucleated RBC % (auto) 0.0 Anion Gap 14 Estim Creat Clear Calc 39.3 Estimated GFR 43 POC Glucose 92 Random Glucose 99 Calcium 8.5 Vancomycin Trough 10/25/22 11:13 MCV MCH MCHC RDW Plt Count MPV Absolute Nucleated RBC Nucleated RBC % (auto) Anion Gap Estim Creat Clear Calc Estimated GFR POC Glucose 170 H Random Glucose Calcium Vancomycin Trough Assessment and Plan (1) Osteomyelitis: Status: Acute (2) Hypertension: Status: Acute (3) PAD (peripheral artery disease): Status: Acute Plan 71-year-old female with pertinent history of essential hypertension, insulin-dependent diabetes mellitus, mood disorder, peripheral arterial disease status post left AKA presents to the emergency department for evaluation of injury to right great toe. #.? Right great toe nonhealing ulcer, cellulitis with imaging concerning for Distal 1st digit osteomyelitis, no sepsis no fevers, no leukocytosis, normal lactic acid, redness improved s/p IV cefepime and vancomycin x 3 day, case discussed with ID and Dr. uPentes will place patient on IV daptomycin for total 6 weeks, blood cultures times 48 hours negative, will place PICC line seen by General surgery no debridement recommended, cont. Betadine, seen by vascular surgery angiogram planned for tomorrow. #.? Peripheral arterial disease status post left bka: On asa and statin #.? Hypertensive urgency with essential hypertension:? BP improved on home medication lisinopril 20 mg and Norvasc 5 mg follow BP closelyi #.? Uncontrolled insulin-dependent diabetes mellitus with hyperglycemia:? on Tresiba 60 units at bedtime, and pre meal insulin 20 units t.i.d., at home blood sugars improved continue insulin sliding scale, diabetic diet and Lantus 50 units at bedtime #.? Mood disorder: Continue home mood stabilizers DVT prophylaxis:? Lovenox 40 mg daily Full code patient will need continued inpatient hospitalization for treatment of right great toe cellulitis/ osteomyelitis requiring IV antibiotics and scheduled for angiogram at a.m.. Time Spent With Patient Time: Total time managing care of this patient today ____ minutes. Quality Stroke Does the patient have a stroke diagnosis?: No VTE Prior VTE?: No VTE Risk Level:: Medical - moderate - high VTE Device Contraindication: Treatment Not Indicated VTE Drug Contraindication: N/A - Med Ordered
--- NOTE | 2022-10-25 14:32 | P.CDIM_ITS ---
PROVIDER RESPONSE TEXT: To clarify, the appropriate diagnosis supported by the clinical indicators: No complications of DM QUERY TEXT: PHYSICIAN'S DOCUMENTATION REQUEST Date of Query: 10/25/2022 10:56 AM EST Patient Name: ALICIA HOLBROOK Admit Date: 10/22/2022 Dear Richard Aguila, A review of the medical record indicates additional documentation may be needed. Please review below and update the documentation accordingly. A diagnosis of diabetes mellitus and cellulitis were documented. Please clarify whether or not there is a link between these two conditions. Clinical Indicators/risk factors: -Patient with uncontrolled DM -Patient with uncontrolled HTN -PMH: PAD -Patient with Right great toe nonhealing ulcer, cellulitis -Patient with left BKA d/t previous complications Please clarify the following regarding the possible/suspected complications of Diabetes Mellitus (DM) : Cellulitis due to DM No complications of DM Other Other (explain) Clinically unable to determine (explain) Thank you, Audrey Ann MS, RN, CCRN Use of terms such as suspected, likely, concern for, or probable (associated with a specific diagnosi s that is being evaluated, monitored, or treated as if it exists) are acceptable and can be coded in the inpatient se tting, when documented at the time of discharge. Please use your independent medical judgment in providing your response. THIS QUERY IS PART OF THE PERMANENT MEDICAL RECORD
[2022-10-25 17:06] VITALS: BP 166/69; PULSE 68; RESP 20; TEMP 37.1; O2SAT 98
[2022-10-25 17:08] LABS: Glucose, Whole Blood 146 mg/dL (60-115)
--- NOTE | 2022-10-25 17:15 | HO.PICC ---
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 Following completion of [place] Protocol the skin and soft tissues were anesthetized with 1% Lidocaine plain. Using ultrasound guidance, right brachial vein access was obtained twice by Braydon Booth RN, but patient moved. Right brachial vein access was obtained on first attempt by Benja Pettit RN. Over an 0.018 wire through peel-away sheath, a 4FR single lumen PASV PICC line was positioned. Catheter length is 38 CM internal length, at the 0 CM nancy--external length, for a total trimmed length of 38 CM. The procedure was performed in S272. Tip verification was performed by Fidelia Galvez with Sherlock 3CG. Tip located in SVC. Ultrasound was used to document vein patency and for needle entry. A formal ultrasound picture and cardiac rhythm strip was recorded. Vascular Production Control Clerk has released the line for use and it is currently dressed with a StatLock, Tegaderm, and CHG disc. Verification has been performed for blood return and line patency. Arm Circumference: 28 CM Equipment: [employer] PowerPICC SOLO Catheter Type: 4FR single lumen PASV PICC Lot #: [id number]
[2022-10-25] MEDS: DAPTOmycin 500 MG in 0.9 % Sodium Chloride 50 ML 103.95 MG IV (17:16)
[2022-10-25 20:08] VITALS: BP 142/58; PULSE 78; RESP 16; TEMP 36.8; O2SAT 97
[2022-10-25 20:10] VITALS: BP 147/58; PULSE 78; RESP 20; TEMP 36.8; O2SAT 97
[2022-10-25 20:37] LABS: Glucose, Whole Blood 270 mg/dL (60-115)
[2022-10-25] MEDS: Enoxaparin Sodium 40 MG/0.4 ML SYRINGE SUBCUT (21:01)
[2022-10-25] MEDS: Insulin Glargine,Hum.rec.anlog 100 UNIT/ML 10 ML VIAL 50 UNIT SUBCUT (21:02)
[2022-10-25] MEDS: traZODone HCL 50 MG TABLET PO (21:02)
[2022-10-25 23:26] VITALS: RESP 18
[2022-10-26 03:32] VITALS: BP 128/60; PULSE 54; RESP 16; TEMP 36.2; O2SAT 95
[2022-10-26 06:50] LABS: Creatinine Clr Calc Pharmacy 33.1; Estimated Glomerular Filt Rate 35
[2022-10-26 07:39] LABS: Glucose, Whole Blood 74 mg/dL (60-115)
[2022-10-26 08:00] VITALS: BP 126/65; RESP 18; TEMP 36.2; O2SAT 94
--- NOTE | 2022-10-26 09:34 | PC.NURSE ---
patient refusing procedure. patient a/ox3. with cyracom interprter ivette [id number] , Jayleen Finnegan, RN, and this rn at bedside. DR Puentes went over risks of not having procedure. Patient understands risks, verbalizes understanding.
--- NOTE | 2022-10-26 10:00 | HO.VASCPN ---
Subjective Subjective Date of Service: 10/26/22 Patient reports: no new complaints Interval history: Very complex 71-year-old Creole female presents for follow-up regarding nonhealing left great toe ulcer. She was actually scheduled for endovascular intervention. She refused. She is now for vascular follow-up. Physical Exam Vital Signs: Vital Signs: Last Vital Signs Temp 97.1 F 10/26/22 08:00 Pulse 54 10/26/22 03:32 Resp 18 10/26/22 08:00 BP 126/65 10/26/22 08:00 Pulse Ox 94 10/26/22 08:00 O2 Del Method 10/26/22 08:00 BMI result Body Mass Index 22.8 Const: General: cooperative, healthy appearing and comfortable Orientation/consciousness: oriented to person, oriented to place and oriented to time HEENT: Head: Yes normal to inspection Neck: Neck: Yes normal visual inspection Carotids: no bruits Chest: Chest palpation & inspection: normal inspection of the chest Resp: Effort & Inspection: normal respiratory effort and able to speak in complete sentences Auscultation: clear to auscultation bilaterally, no crackles, no rales, no rhonchi and no wheezes Cardio: Rate: regular rate Rhythm: regular rhythm Heart sounds: S1 normal heart sound present and S2 normal heart sound present Bruits: no carotid bruits Peripheral pulses: Peripheral pulses 2+ throughout GI: Inspection: Yes normal to inspection Skin: Other: Nonhealing right great toe ulcer Left BKA well-healed Wounds: amputation site and wounds noted Hair: normal Neuro: General: oriented to person, oriented to place and oriented to time Cranial nerves: Yes CN's II-XII intact bilaterally and Yes Normal hearing present Cognition (Neuro): normal cognition Motor exam (neuro): 5/5 motor strength present throughout Extrem: Other: venous exam: No significant superficial varicosities or spider telangiectasias, minimal edema General: No clubbing, No cyanosis and No edema Psych: Appearance: grossly normal Mental Status: mental status grossly normal Speech and movement: Normal speech and movement present Progress Note: A&P Assessment and plan (1) PAD (peripheral artery disease): Status: Acute Assessment and Plan: In short very complex female. I had an extensive discussion with the daughter who urged her mother to undergo a procedure to revascularize her leg. 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 She also has underlying osteomyelitis. I did have this extensive discussion with the daughter who was agreeable and urged her mother to undergo this. We spent a fair amount of time with industrial truck driver services. We explained the procedure in extreme detail. She then refused the procedure. I did explain that should she not proceed she is at risk of limb loss as she did have on the other leg. She did demonstrated an understanding of this with industrial truck driver services. We did discuss risks benefits complications in detail. She did demonstrated an understanding of this as well. She did refuse. She can be discharged from my perspective. [facility] to the great toe ulcer. Should she wish to have the procedure performed for SFA occlusion she can follow up with me as an outpatient. Thank you for allowing us to assist in her care. If there are any questions or concerns please do not hesitate to contact us. Time Spent With Patient Time: Total time managing care of this patient today __60__ minutes. This was required between discussion with the patient patient's daughter industrial truck driver services and coordinating staff and subsequent cancellation of procedure.. Procedures Date of Service Date of Service: 10/26/22 Quality Stroke Does the patient have a stroke diagnosis?: No VTE Prior VTE?: No VTE Risk Level:: Medical - moderate - high VTE Device Contraindication: Treatment Not Indicated VTE Drug Contraindication: N/A - Med Ordered
[2022-10-26] MEDS: Atorvastatin Calcium 40 MG TABLET PO (10:18)
[2022-10-26] MEDS: lisinopriL 20 MG TABLET PO (10:18)
[2022-10-26] MEDS: amLODIPine Besylate 5 MG TABLET PO (10:18)
[2022-10-26] MEDS: 0.9 % Sodium Chloride Flush 3 ML SYRINGE IVFLUSH ×2 (10:19→21:09)
[2022-10-26 11:33] LABS: Glucose, Whole Blood 247 mg/dL (60-115)
[2022-10-26] MEDS: Insulin Lispro 100 UNIT/ML 3 ML VIAL SUBCUT ×2 (11:43→21:10)
[2022-10-26 12:00] VITALS: BP 181/81; PULSE 71; RESP 16; TEMP 34.7; O2SAT 100
--- NOTE | 2022-10-26 14:06 | P.DS_ITS ---
DS: Providers Provider Date of Service: 10/26/22 Date of admission: 10/21/22 21:29 Primary care physician: Una Telles NP Consults: 10/21/22 21:35 Consult to General Surgery Routine Consulting Provider: Shantel Stapleton Reason for consultation: first toe infection with osteo Consult to Infectious Diseases Routine Consulting Provider: Kristy Carreno Reason for consultation: osteomyelitis 10/24/22 07:51 Consult to Vascular Surgery Routine Consulting Provider: James Puentes Reason for consultation: rt toe distal phalanx ? osteo Has provider been notified: No 10/24/22 12:54 Consult to Infectious Diseases Routine Consulting Provider: Kristy Carreno Reason for consultation: osteomyelitis DS: Diagnosis Discharge Diagnosis (1) PAD (peripheral artery disease): Status: Acute DS: Summary Hospital Course Hospital Course: Date of Service: 10/21/22 Chief Complaint: Foot infection This is a 71-year-old female with pertinent history of essential hypertension, insulin-dependent diabetes mellitus, mood disorder, peripheral arterial disease status post left AKA presents to the emergency department for evaluation of injury to right great toe.? Patient is Creole speaking and history obtained via family member as patient denied interpretation services.? Patient states she had trauma to the right great toe about 2 weeks ago.? Since then the right great toe has become erythematous, swollen and painful.? No drainage.? Patient denies fever, chills, chest discomfort, palpitations, shortness of breath, abdominal pain, changes in urinary or bowel habits. In the emergency department, imaging concerning for osteomyelitis. 71-year-old female with pertinent history of essential hypertension, insulin- dependent diabetes mellitus, mood disorder, peripheral arterial disease status p ost left AKA presents to the emergency department for evaluation of injury to right great toe. #.? Right great toe? nonhealing ulcer, cellulitis with imaging concerning for Distal 1st digit osteomyelitis, no sepsis,? no fevers, no leukocytosis, normal lactic acid, treated with IV? cefepime and vancomycin x 3 day, and subsequently placed on IV daptomycin as per ID recommendation for total 6 week duration patient was seen by Dr. Puentes, leg ultrasound showed SFA occlusion likely contributing to nonhealing right great toe ulcer Dr. Puentes recommended revascularization however patient declined the procedure, patient was in formal bout risk of limb loss as she did on the other leg she did demonstrated an understanding of this with bonderizer operator services however still refused to undergo procedure, therefore she is being discharged home with VNA services for IV daptomycin infusion for total 6 weeks ending on December 06 she will have CPK ,cbc, creatinine checked Q weekly, continuie asa and statin, and close outpatient follow-up with vascular surgery #.? Hypertensive urgency? with essential hypertension:? BP improved on home medication lisinopril 20 mg and Norvasc 5 mg follow BP closely #.? Uncontrolled insulin-dependent diabetes mellitus with hyperglycemia:? blood sugar improved continue Tresiba 60 units at bedtime, and pre meal insulin 20 units t.i.d.follow dibetic diet #.? Mood disorder: Continue home mood stabilizers. Time Spent with Patient Time attestation: Total time managing care of this patient today ____ minutes. Discharge coordination time: Greater than 30 minutes Quality: Safe Use of Opioids Does Pt have an Active Cancer Diagnosis on the Problem List?: No Quality: Stroke Does the patient have a stroke diagnosis?: No Physical Exam Vital Signs: Vital Signs: Last Vital Signs Temp 94.4 F L 10/26/22 12:00 Pulse 71 10/26/22 12:00 Resp 16 10/26/22 12:00 BP 181/81 H 10/26/22 12:00 Pulse Ox 100 10/26/22 12:00 O2 Del Method 10/26/22 12:00 BMI result Body Mass Index 22.8 Const: Other: General awake, mackenzie rt, resting comfor tably in no distre ss. Neck supple, n o?JVD CVS Regular rate and rhythm, S 1-S2 heard Resp? c lear to auscultati on bilaterally, no wheezing or crackl es GI Abdomen soft , nontender, no gu arding, no rigidit y,bs + Neuro nonfo herber extremities no edema Musculoskel etal:?right?great toe dry ulcer, no drainage, no tende rness,left BKA Psy ch:? appropriate a ffect DS: Data Data Completed and Pending Labs on day of discharge: Laboratory Results - last 24 hr 10/25/22 10/25/22 10/26/22 17:02 20:31 05:24 Creatinine 1.46 H Estim Creat Clear Calc 33.1 Estimated GFR 35 POC Glucose 146 H 270 H 10/26/22 10/26/22 07:34 11:16 Creatinine Estim Creat Clear Calc Estimated GFR POC Glucose 74 247 H Preliminary micro results at discharge 10/21/22 22:33 Blood Culture - Preliminary Blood - Venous No growth after 48 hours. 10/21/22 22:33 Blood Culture - Preliminary Blood - Venous No growth after 48 hours. Discharge Plan Discharge Anticipated Discharge Date/Time: 10/26/22 13:55 Patient Disposition: Home Health Service Discharge Diagnosis: right great toe osteomyelitis peripheral arterial disease Referrals: Physician,None [Physician] - 1 Week Discharge Medications: Continued atorvastatin 40 mg tablet 1 tab PO DAILY trazodone 50 mg tablet 1 tab PO BEDTIME amlodipine 5 mg tablet 1 tab PO DAILY aspirin 81 mg tablet,chewable PO DAILY lisinopril 20 mg tablet 20 mg PO DAILY insulin aspart U-100 100 unit/mL (3 mL) insulin pen 20 unit subcut TIDAC Tresiba FlexTouch U-200 200 unit/mL (3 mL) insulin pen 60 unit subcut BEDTIME Discharge Orders: Discharge Order (Routine); Ordered 10/26/22 Ordered By: Richard Aguila Diet: Diabetic diet Activity on Discharge: As tolerated Stand Alone Forms: Patient Portal Discharge page Activity Restrictions/Additional Instructions: Wound care for right great toe: Alginate, 4x4 and tape to be changed daily. Please see Dr. Puentes 2 weeks after discharge Care Plan Goals: take daptomycin 500 mg IV daily for total 6 weeks, end date 12/06/2022 follow CPK, creatinine and CBC Q weekly Health Concerns: diabetes mellitus/ hypertension continue home medication follow blood sugar and blood pressure closely Plan of Treatment: outpatient follow-up with Dr. Puentes as above, outpatient follow-up with primary care physician call for appointment. Assessment: as above
[2022-10-26] MEDS: DAPTOmycin 500 MG in 0.9 % Sodium Chloride 50 ML 103.95 MG IV (14:24)
--- NOTE | 2022-10-26 15:26 | P.PNIM_ITS ---
Subjective Subjective Date of Service: 10/26/22 Interval History: offers no acute complaints, no fevers no chills, no nausea, no vomiting, no other acute issues, patient refused angiogram, therefore will be continued on IV daptomycin Review of Systems Review of Systems: Yes all other systems are reviewed and are negative Physical Exam Vital Signs: Vital Signs: Last Vital Signs Temp 94.4 F L 10/26/22 12:00 Pulse 71 10/26/22 12:00 Resp 16 10/26/22 12:00 BP 181/81 H 10/26/22 12:00 Pulse Ox 100 10/26/22 12:00 O2 Del Method 10/26/22 12:00 BMI result Body Mass Index 22.8 Const: Other: General awake, alert, resting comfortably in no distress. Neck supple, no?JVD CVS Regular rate and rhythm, S1-S2 heard Resp? clear to auscultation bilaterally, nowheezing or crackles GI Abdomen soft, nontender, no guarding, no rigidity,bs + Neuro nonfocal extremities no edema Musculoskeletal:?right?great toe dry ulcer, no drainage, no tenderness Psych:? appropriate affect Objective Data Active Medications Acetaminophen (Acetaminophen 325 Mg Tablet) 650 mg PO Q6H PRN PRN Reason: Pain, Mild (Pain Scale 1-3) Amlodipine Besylate (Amlodipine Besylate 5 Mg Tablet) 5 mg PO DAILY [facility]; Protocol Last Admin: 10/26/22 10:18 Dose: 5 mg Documented By: LISE Atorvastatin Calcium (Atorvastatin Calcium 40 Mg Tablet) 40 mg PO DAILY [facility] Last Admin: 10/26/22 10:18 Dose: 40 mg Documented By: LISE Enoxaparin Sodium (Enoxaparin Sodium 40 Mg/0.4 Ml Syringe) 40 mg SUBCUT Q24H [facility] Last Admin: 10/25/22 21:01 Dose: 40 mg Documented By: KEVAN Glucose (Glucose Gel 15 Gm Gel..Gram.) 15 gm PO Q15M PRN; Protocol PRN Reason: per Hypoglycemia Standing Ord. Dextrose (D10) 250 mls @ 750 mls/hr IV Q15M PRN; Protocol PRN Reason: per Hypoglycemia Standing Ord. Daptomycin 500 mg/ Sodium (Chloride) 60 mls @ 103.946 mls/hr IV Q24H [facility] Last Infusion: 10/26/22 15:02 Dose: 0 mls/hr Documented By: ADELITA Sodium Chloride (Ns) 1,000 mls @ 100 mls/hr IVCONT .Q10H [facility] Last Admin: 10/26/22 10:22 Dose: Not Given Documented By: LISE Non-Admin Reason: n Insulin Glargine (Insulin Glargine,Hum.Rec.Anlog 100 Unit/Ml 10 Ml Vial) 50 unit SUBCUT BEDTIME [facility] Last Admin: 10/25/22 21:02 Dose: 50 unit Documented By: KEVAN Insulin Human Lispro (Insulin Lispro 100 Unit/Ml 3 Ml Vial) 0 unit SUBCUT QID ACHS [facility]; Protocol Last Admin: 10/26/22 11:43 Dose: 6 unit Documented By: LISE Lisinopril (Lisinopril 20 Mg Tablet) 20 mg PO DAILY [facility]; Protocol Last Admin: 10/26/22 10:18 Dose: 20 mg Documented By: LISE Melatonin (Melatonin 3 Mg Tablet) 6 mg PO BEDTIME PRN PRN Reason: Insomnia Ondansetron HCl (Ondansetron Hcl 4 Mg/2 Ml Vial) 4 mg IVPUSH Q8H PRN PRN Reason: Nausea and Vomiting Pharmacy Consult (Consult Rx Perform Med Rec) 1 each MISCELLANE ONCE PRN PRN Reason: Consult order Sodium Chloride (0.9 % Sodium Chloride Flush 3 Ml Syringe) 3 ml IVFLUSH QSHIFT [facility] Last Admin: 10/26/22 15:02 Dose: Not Given Documented By: ADELITA Non-Admin Reason: flushed picc line with 5cc Trazodone HCl (Trazodone Hcl 50 Mg Tablet) 50 mg PO BEDTIME [facility] Last Admin: 10/25/22 21:02 Dose: 50 mg Documented By: KEVAN Labs 10/25/22 05:25 10/26/22 05:24 Labs: Laboratory Results - last 24 hr 10/25/22 10/25/22 10/26/22 17:02 20:31 05:24 Estim Creat Clear Calc 33.1 Estimated GFR 35 POC Glucose 146 H 270 H Total Creatine Kinase 10/26/22 10/26/22 10/26/22 07:34 11:16 14:24 Estim Creat Clear Calc Estimated GFR POC Glucose 74 247 H Total Creatine Kinase 195 H Assessment and Plan (1) Osteomyelitis: Status: Acute Plan 71-year-old female with pertinent history of essential hypertension, insulin-dep endent diabetes mellitus, mood disorder, peripheral arterial disease status post left AKA presents to the emergency department for evaluation of injury to right great toe. #.? Right great toe? nonhealing ulcer, cellulitis with imaging concerning for Distal 1st digit osteomyelitis, no sepsis,? no fevers, no leukocytosis, normal lactic acid,? treated with IV? cefepime and vancomycin x 3 day, ?? ? and subsequently placed on IV daptomycin? as per ID recommendation for total 6 week duration patient was seen by Dr. Puentes, leg ultrasound showed SFA occlusion likely contributing to nonhealing right great toe ulcer ?? ? Dr. Puentes recommended revascularization? however patient declined the procedure, patient was in formal bout risk of limb loss as she did on the other leg she did demonstrated an understanding of this with senior payroll specialist ?? ? services however still refused to undergo procedure, therefore she is being discharged home with [facility] services for IV daptomycin infusion for total 6 weeks ending on December 06 she will have CPK ,cbc, creatinine? checked ?? ? Q weekly, continuie asa and statin, and close outpatient follow-up with vascular surgery #.? Hypertensive urgency? with essential hypertension:? BP improved on home medication lisinopril 20 mg and Norvasc 5 mg follow BP closely #.? Uncontrolled insulin-dependent diabetes mellitus with hyperglycemia:? blood sugar improved continue Tresiba 60 units at bedtime, and pre meal insulin 20 units t.i.d.follow dibetic diet #.? Mood disorder: Continue home mood stabilizers. disposition patient will go home tomorrow with home infusion, son will come tomorrow at 10:00 to receive teachings to administer the antibiotics, patient has PICC line. Time Spent With Patient Time: Total time managing care of this patient today ____ minutes. Quality Stroke Does the patient have a stroke diagnosis?: No VTE Prior VTE?: No VTE Risk Level:: Medical - moderate - high VTE Device Contraindication: Treatment Not Indicated VTE Drug Contraindication: N/A - Med Ordered
--- NOTE | 2022-10-26 15:27 | MHC.CM.PN ---
PATIENT TO REMAIN TONIGHT CURRENTLY AWAITING SON ( ROSE MARIE) TO ARRIVE FOR IV PUSH TEACH. [facility] TO DO THE TEACH AT 1000 ON 10/27/22 UNIT AND MD MADE AWARE.
[2022-10-26 16:00] VITALS: BP 168/70; PULSE 63; RESP 20; TEMP 36.6; O2SAT 98
[2022-10-26 16:56] LABS: Glucose, Whole Blood 105 mg/dL (60-115)
[2022-10-26 19:20] VITALS: BP 165/75; PULSE 76; RESP 18; TEMP 36.4; O2SAT 98
[2022-10-26 20:41] LABS: Glucose, Whole Blood 164 mg/dL (60-115)
[2022-10-26] MEDS: Insulin Glargine,Hum.rec.anlog 100 UNIT/ML 10 ML VIAL 50 UNIT SUBCUT (21:09)
[2022-10-26] MEDS: Enoxaparin Sodium 40 MG/0.4 ML SYRINGE SUBCUT (21:09)
[2022-10-26] MEDS: traZODone HCL 50 MG TABLET PO (21:10)
[2022-10-26 23:22] VITALS: BP 131/63; PULSE 85; RESP 18; TEMP 36.8; O2SAT 99
[2022-10-27 03:14] VITALS: BP 116/64; PULSE 78; RESP 18; TEMP 36.8; O2SAT 98
[2022-10-27 06:57] LABS: Creatinine Clr Calc Pharmacy 28.6; Estimated Glomerular Filt Rate 30
[2022-10-27 08:00] VITALS: BP 168/87; PULSE 65; RESP 18; TEMP 36.2
[2022-10-27 08:19] LABS: Glucose, Whole Blood 54 mg/dL (60-115)
[2022-10-27] MEDS: 0.9 % Sodium Chloride Flush 3 ML SYRINGE IVFLUSH (08:52)
[2022-10-27] MEDS: amLODIPine Besylate 5 MG TABLET PO (08:52)
[2022-10-27] MEDS: lisinopriL 20 MG TABLET PO (08:52)
[2022-10-27] MEDS: Atorvastatin Calcium 40 MG TABLET PO (08:52)
[2022-10-27 08:56] LABS: Glucose, Whole Blood 89 mg/dL (60-115)
--- NOTE | 2022-10-27 10:35 | P.PNIM_ITS ---
Subjective Subjective Date of Service: 10/27/22 Interval History: No acute issues overnight. Awaiting son to come in and be in service on administering IV antibiotic Review of Systems Denies chest pain Denies shortness of breath Denies nausea vomiting diarrhea Denies fever chills Physical Exam Vital Signs: Vital Signs: Last Vital Signs Temp 97.1 F 10/27/22 08:00 Pulse 65 10/27/22 08:00 Resp 18 10/27/22 08:00 BP 168/87 H 10/27/22 08:00 Pulse Ox 98 10/27/22 03:14 O2 Del Method 10/27/22 03:14 BMI result Body Mass Index 22.8 Const: Other: Awake alert oriented x3 no acute distress Resp: Other: Clear to auscultation bilaterally no rales rhonchi or wheezes Cardio: Other: No S4; positive S1-S2; no S3 murmurs rubs gallops GI: Other: Soft nontender nondistended normoactive bowel sounds Extrem: Other: No edema bilaterally Objective Data Active Medications Acetaminophen (Acetaminophen 325 Mg Tablet) 650 mg PO Q6H PRN PRN Reason: Pain, Mild (Pain Scale 1-3) Amlodipine Besylate (Amlodipine Besylate 5 Mg Tablet) 5 mg PO DAILY [facility]; Protocol Last Admin: 10/27/22 08:52 Dose: 5 mg Documented By: ANTONIETA Atorvastatin Calcium (Atorvastatin Calcium 40 Mg Tablet) 40 mg PO DAILY [facility] Last Admin: 10/27/22 08:52 Dose: 40 mg Documented By: ANTONIETA Enoxaparin Sodium (Enoxaparin Sodium 40 Mg/0.4 Ml Syringe) 40 mg SUBCUT Q24H [facility] Last Admin: 10/26/22 21:09 Dose: 40 mg Documented By: SHERYL Glucose (Glucose Gel 15 Gm Gel..Gram.) 15 gm PO Q15M PRN; Protocol PRN Reason: per Hypoglycemia Standing Ord. Dextrose (D10) 250 mls @ 750 mls/hr IV Q15M PRN; Protocol PRN Reason: per Hypoglycemia Standing Ord. Daptomycin 500 mg/ Sodium (Chloride) 60 mls @ 103.946 mls/hr IV Q48H [facility] Insulin Glargine (Insulin Glargine,Hum.Rec.Anlog 100 Unit/Ml 10 Ml Vial) 50 unit SUBCUT BEDTIME [facility] Last Admin: 10/26/22 21:09 Dose: 50 unit Documented By: SHERYL Insulin Human Lispro (Insulin Lispro 100 Unit/Ml 3 Ml Vial) 0 unit SUBCUT QIDACHS [facility]; Protocol Last Admin: 10/27/22 08:48 Dose: Not Given Documented By: ANTONIETA Non-Admin Reason: No Insulin Coverage Lisinopril (Lisinopril 20 Mg Tablet) 20 mg PO DAILY [facility]; Protocol Last Admin: 10/27/22 08:52 Dose: 20 mg Documented By: ANTONIETA Melatonin (Melatonin 3 Mg Tablet) 6 mg PO BEDTIME PRN PRN Reason: Insomnia Ondansetron HCl (Ondansetron Hcl 4 Mg/2 Ml Vial) 4 mg IVPUSH Q8H PRN PRN Reason: Nausea and Vomiting Pharmacy Consult (Consult Rx Perform Med Rec) 1 each MISCELLANE ONCE PRN PRN Reason: Consult order Sodium Chloride (0.9 % Sodium Chloride Flush 3 Ml Syringe) 3 ml IVFLUSH QSHIFT [facility] Last Admin: 10/27/22 08:52 Dose: 3 ml Documented By: ANTONIETA Trazodone HCl (Trazodone Hcl 50 Mg Tablet) 50 mg PO BEDTIME [facility] Last Admin: 10/26/22 21:10 Dose: 50 mg Documented By: SHERYL Labs 10/25/22 05:25 10/27/22 05:47 Labs: Laboratory Results - last 24 hr 10/26/22 10/26/22 10/26/22 11:16 14:24 16:49 Estim Creat Clear Calc Estimated GFR POC Glucose 247 H 105 Total Creatine Kinase 195 H 10/26/22 10/27/22 10/27/22 20:36 05:47 08:16 Estim Creat Clear Calc 28.6 Estimated GFR 30 POC Glucose 164 H 54 L* Total Creatine Kinase 10/27/22 08:52 Estim Creat Clear Calc Estimated GFR POC Glucose 89 Total Creatine Kinase Microbiology Microbiology Results: Microbiology 10/21/22 22:33 Blood Culture - Final Blood - Venous No growth after 5 days. 10/21/22 22:33 Blood Culture - Final Blood - Venous No growth after 5 days. Assessment and Plan (1) Osteomyelitis: Status: Acute Plan 71-year-old female with pertinent history of essential hypertension, insulin- dependent diabetes mellitus, mood disorder, peripheral arterial disease status post left AKA presents to the emergency department for evaluation of injury to right great toe. Son in an completed in service. To be discharged home with son to do daptomycin as ordered Time Spent With Patient Time: Total time managing care of this patient today ____ minutes. Quality Stroke Does the patient have a stroke diagnosis?: No VTE Prior VTE?: No VTE Risk Level:: Medical - moderate - high VTE Device Contraindication: Treatment Not Indicated VTE Drug Contraindication: N/A - Med Ordered
--- NOTE | 2022-10-27 10:49 | MHC.CM.PN ---
HOME TODAY WITH [facility] SON (IN ROOM) TO TRANSPORT HOME. IMM 10/26 IN CHART RN AWARE OF PLAN
--- NOTE | 2022-10-27 11:07 | W.MHC.F2F ---
Service Date Service Date: 10/27/22 Encounter Date of encounter: 10/27/22 Encounter: Acute hospitalization Reasons for Services Signs and symptoms assessed: Osteomyelitis requiring 6 weeks of IV antibiotics Reason for long-term: medication management, medication treatment and other (Management of PICC line including dressings) Homebound: Leaving the home is medically contraindicated at this time without the asist of a device and/or another person due th the listed conditions above and below. Reason homebound: unsteady gait / fall risk, bedbound/chairbound and unable to drive Certification: Based on the above findings, I certify that this patient is confined to the home and needs intermittent long-term care, physical therapy and/or speech therapy, or continues to need occupational therapy. The patient is under my care, and I have initiated the establishment of the plan of care. The patient will be followed by a physician who will periodically review the plan of care. Time Spent With Patient Time: Total time managing care of this patient today ____ minutes.
== END 2022-10-27 11:10 | disposition home health service (06) | DRG 603 ==
LOC: HO.ED 22:05 → HO.EDOVER 22:09 → HO.S3 10-22 04:19
PROVIDERS: Hospitalist; Nurse Practitioner Family; Admitting Provider Student in an Organized Health Care Education/Training Program; Emergency Provider Emergency Medicine; PCP Nurse Practitioner Adult Health; Visit Provider Hospitalist
DX: L03.031 Cellulitis of right toe (principal); M86.9 Osteomyelitis, unspecified; E11.51 Type 2 diabetes mellitus with diabetic peripheral angiopathy without gangrene; L97.519 Non-pressure chronic ulcer of other part of right foot with unspecified severity; I70.235 Atherosclerosis of native arteries of right leg with ulceration of other part of foot; E11.65 Type 2 diabetes mellitus with hyperglycemia; I16.0 Hypertensive urgency; I10 Essential (primary) hypertension; F39 Unspecified mood [affective] disorder; E11.69 Type 2 diabetes mellitus with other specified complication; Z20.822 Contact with and (suspected) exposure to COVID-19; Z91.199 Patient's noncompliance with other medical treatment and regimen due to unspecified reason; Z89.512 Acquired absence of left leg below knee; Z95.0 Presence of cardiac pacemaker; Z88.0 Allergy status to penicillin; Z79.4 Long term (current) use of insulin; Z79.82 Long term (current) use of aspirin; Z79.899 Other long term (current) drug therapy
CPT/HCPCS: 36415; 36573; 73630; 80048; 80053; 80202; 82550; 82565; 82947; 83605; 85025; 85027; 85652; 86140; 87040; 87635; 93923; 93926; 99285; C1751; J0692; J0878; J1650; J3370; J3371

== ENCOUNTER → 2022-11-07 13:16 | Outpatient (BNVA) | payer MEDICARE, MEDICAID, SELFPAY | PROVIDERS: PCP Nurse Practitioner Adult Health; Visit Provider Internal Medicine | DX: M86.9 Osteomyelitis, unspecified (principal) | CPT/HCPCS: 99212 ==

== ENCOUNTER 2023-08-22 16:20 | Emergency (ER) | payer MEDICARE, MEDICAID, SELFPAY | END 2023-08-22 19:56 | disposition left against medical advice (07) | PROVIDERS: Emergency Provider Emergency Medicine | DX: M79.674 Pain in right toe(s) (principal); E11.9 Type 2 diabetes mellitus without complications; Z53.21 Procedure and treatment not carried out due to patient leaving prior to being seen by health care provider ==

== ENCOUNTER 2023-08-24 12:25 | Inpatient (IN) | payer MEDICARE, MEDICAID, SELFPAY ==
--- NOTE | ~2023-08-24 | XR_ITS ---
EXAMINATION: XR CHEST CLINICAL INFORMATION: Tachypnea COMPARISON: Chest 08/29/2023 TECHNIQUE: Frontal view of the chest was obtained. FINDINGS: There is mild cardiomegaly with increased pulmonary vascularity suggestive mild congestion. There are dual pacer electrodes in right atrium and right ventricle. The lungs are expanded without acute consolidation. No gross bony abnormality seen. XR/XR chest 1V IMPRESSION: Mild cardiomegaly with mild pulmonary vascular congestion.
--- NOTE | ~2023-08-24 | XR_ITS ---
EXAMINATION: XR CHEST CLINICAL INFORMATION: shortness of breath, low O2 sat, crackles COMPARISON: None available. TECHNIQUE: Frontal view of the chest was obtained. FINDINGS: Dual lead pacemaker overlies left pectoral region with leads in the right atrium and right ventricle. There is blunting of the left lateral costophrenic sulcus suggesting a small effusion. Additionally patchy left lung base may correspond atelectasis. Superimposed consolidation cannot be excluded. There is pulmonary venous congestion. No significant pulmonary edema. Trace fluid in the right minor fissure. Possible trace right pleural effusion. Cardiac silhouette is within normal limits in size. Degenerative disc disease is present in the thoracic spine. No acute osseous findings. XR/XR chest 1V IMPRESSION: 1. Pulmonary venous congestion without significant pulmonary edema. 2. Small left and possible trace right pleural effusions. 3. Patchy left lung base atelectasis. Superimposed consolidation cannot be excluded.
[2023-08-24 13:39] VITALS: BP 185/84; PULSE 84; RESP 16; TEMP 36.7; O2SAT 98; BMI 32.3
--- NOTE | 2023-08-24 13:46 | ED.GENADULT ---
HPI - General Adult General Chief complaint: Extremity Injury, Lower Stated complaint: Right foot swelling/discoloration Time Seen by Provider: 08/24/23 17:53 Source: patient, family (Patient's son who is bedside), RN notes reviewed and old records reviewed Mode of arrival: ambulatory Limitations: language barrier History of Present Illness HPI narrative: 72-year-old female with past medical history significant for diabetes, hypertension, history of osteomyelitis, left BKA presents for evaluation of right foot and toe discoloration swelling. Per the patient's son, the patient has had color changes to the right 2nd toe since the beginning of July Apparently the patient is stubborn and would not consent to come to the hospital so therefore did not present until today She reports that she is on her feet frequently and her right foot swells up when she is standing for long periods of time The patient's right 2nd toe is black with foul-smelling discharge and surrounding redness. This has been ongoing for over a month according to the patient's son The patient was admitted in October of last year for osteomyelitis and was found to have arterial occlusions the right lower extremity but declined surgical intervention. The patient reports minimal pain currently Denies any fevers, chills Related Data Home Medications Medication Instructions Recorded Confirmed blood sugar diagnostic #10 ea 06/11/20 insulin aspart U-100 100 unit/mL 20 unit subcut TIDAC 06/11/20 08/24/23 (3 mL) subcutaneous pen lancets 28 gauge #100 ea 06/11/20 pen needle, diabetic 31 gauge x #50 ea 06/11/20 1/ insulin degludec 200 unit/mL (3 60 unit subcut BEDTIME 07/20/21 08/24/23 mL) subcutaneous pen (Tresiba FlexTouch U-200 insulin) pen needle, diabetic 31 gauge x #50 ea 07/20/21 15/64 aspirin 81 mg chewable tablet 81 mg PO DAILY 10/22/22 08/24/23 multivitamin 1 tab PO DAILY 08/24/23 08/24/23 Allergies Allergy/AdvReac Type Severity Reaction Status Date / Time penicillin V Allergy Unknown RSH,ITCHY Verified 11/07/22 13:40 Review of Systems Constitutional: Constitutional: Denies chills and Denies fever(s) Cardiovascular: Cardiovascular: Denies chest pain, Reports leg edema and Denies dyspnea Respiratory: Respiratory: Denies cough and Denies dyspnea Musculoskeletal: Musculoskeletal: Reports arthralgias and Reports joint swelling Comments: History of left BKA Integumentary/Breasts: Skin/Breast: Reports non-healing lesions, Reports erythema, Reports skin pain, Reports skin ulcer, Reports sores and Reports wounds PMFSH Past Medical History Onset Date is defined in the Problem List Problems that require an onset date and time if occurred within 24 hrs of arrival to the ED Aortic Dissection and Rupture; Neurologic impairment; Cardiopulmonary Arrest; Endotracheal Intubation; Insertion or Replacement of Mechanical Circulatory Assist Device Medical History Hypertension Essential hypertension Mood disorder Diabetes PAD (peripheral artery disease) History of left below knee amputation Surgical History History of femoral angiogram History of left below knee amputation Pacemaker Social History Social History Household Members: Unknown / Unable to assess Housing: Unknown / Unable to assess Unable to assess alcohol history related to: Unknown Alcohol intake: current Alcohol intake frequency: holidays/special occasions only Patient Tobacco Use Status: Never used Tobacco Smoked in Last 30 Days: No Use of substances other than those prescribed or required for medical reasons: No Advance Directives: No Advance Directives Information Provided: No Nutrition Risks: No Nutritional Risk service: No Current occupational status: retired Physical Exam ED Vital Signs: Vital Signs - 24 hr 08/24/23 13:39 08/24/23 18:00 08/24/23 19:30 Temperature 98.1 F 98.9 F 99.6 F Pulse Rate 84 78 82 Respiratory Rate 16 18 17 Blood Pressure 185/84 H 180/75 H 192/86 H Pulse Oximetry 98 94 98 Oxygen Delivery Method Room Air Room Air Room Air BMI result Body Mass Index 32.3 Const General: healthy appearing, comfortable, no acute distress, alert and awake Nutritional Appearance: well nourished Orientation/consciousness: patient oriented x3 HENMT Head: Yes normocephalic and Yes atraumatic Eyes Eyelids: Yes eyelids normal Conjunctivae: conjunctivae normal Sclerae: sclerae normal Corneas: corneas normal EOM: EOMs intact bilaterally Neck Neck: Yes full ROM Resp Effort & Inspection: normal respiratory effort, able to speak in complete sentences and not labored Skin Other: Patient has necrosis the right 2nd toe which is completely black in color. She also has significant lichenification with partial amputation of the right 1st toe. There is surrounding erythema with skin changes extending towards the proximal midfoot. There is no erythema or edema extending beyond the ankle. Neuro General: patient oriented x3 Cranial nerves: Yes Bilaterally intact EOM present Cognition (Neuro): normal cognition Course Course Course Narrative: RME: Symmetry old female with right chronic foot wound not healing now with gangrene and foul odor. Patient history of diabetes. Patient states slight pain. On exam toes or gangrene with foul odor. Labs x-ray ordered. Arterial ultrasound ordered. Nurse Liya made aware to bring patinet. Patient will need antibiotics. 3: 58 pm: patient hyponatremiic with hyperkalemia. Charge nurse Liya made aware. EKG ordered 5:04pm: [facility] ordered Medications Administered Generic Name Dose Route Start Last Admin Trade Name Freq PRN Reason Stop Dose Admin Acetaminophen 650 mg 08/24/23 19:47 08/24/23 22:07 Acetaminophen 325 Mg Tablet PO 650 mg Q6H PRN Administration Pain, Mild (Pain Scale 1-3) Aspirin 81 mg 08/25/23 09:00 08/25/23 09:28 Aspirin 81 Mg Tab.Chew PO Not Given DAILY [facility] Cefepime HCl 2 gm/ Sodium 50 mls @ 100 mls/hr 08/25/23 06:00 08/25/23 06:10 Chloride IV Infused Q12H [facility] Infusion Insulin Glargine 48 unit 08/24/23 21:00 08/24/23 22:06 Insulin Glargine,Hum.Rec.Anlog 100 Unit/Ml 10 Ml Vial SUBCUT 48 unit BEDTIME [facility] Administration Insulin Human Lispro 0 unit 08/24/23 21:00 08/25/23 07:31 Insulin Lispro 100 Unit/Ml 3 Ml Vial SUBCUT Not Given QIDACHS [facility] Protocol Melatonin 6 mg 08/24/23 19:47 08/24/23 22:07 Melatonin 3 Mg Tablet PO 6 mg BEDTIME PRN Administration Insomnia Multivitamins/Vitamin C 1 tab 08/25/23 09:00 08/25/23 09:28 Multivitamin Tablet PO Not Given DAILY [facility] Sodium Chloride 3 ml 08/25/23 00:00 08/25/23 00:14 0.9 % Sodium Chloride Flush 3 Ml Syringe IVFLUSH Not Given QSHIFT [facility] Discontinued Medications Generic Name Dose Route Start Last Admin Trade Name Andres PRN Reason Stop Dose Admin Acetaminophen 975 mg 08/24/23 16:55 08/24/23 18:03 Acetaminophen 325 Mg Tablet PO 08/24/23 16:56 Not Given ONCE ONE Enoxaparin Sodium 40 mg 08/24/23 20:02 08/24/23 22:10 Enoxaparin Sodium 40 Mg/0.4 Ml Syringe SUBCUT 08/24/23 20:03 40 mg ONCE ONE Administration Sodium Chloride 1,000 mls @ 999 mls/hr 08/24/23 18:15 08/24/23 19:53 Ns IV 08/24/23 19:15 Infused .Q1H1M [facility] Infusion Vancomycin HCl 1,500 mg/ 500 mls @ 333.333 mls/hr 08/24/23 18:19 08/24/23 21:51 Sodium Chloride IV 08/24/23 19:48 Infused ONCE ONE Infusion Cefepime HCl 1 gm/ Sodium 50 mls @ 100 mls/hr 08/24/23 18:19 08/24/23 19:52 Chloride IV 08/24/23 18:48 Infused ONCE ONE Infusion Sodium Zirconium Cyclosilicate 10 gm 08/24/23 17:00 08/24/23 18:21 Sodium Zirconium Cyclosilicate 10 Gm Powd.Pack PO 08/24/23 17:01 10 gm ONCE ONE Administration Medical Decision Making Medical Decision Making MDM Narrative: 72-year-old female presents for evaluation of right foot and toe swelling and discoloration. The patient has chronic vascular occlusions the right lower leg and sounds like chronic wounds which have not been treated due to noncompliance. She had an ultrasound which shows stable right lower extremity arterial occlusions with collateral blood flow. Patient is not septic but does have a leukocytosis. I discussed with vascular surgery, Dr. Puentes recommends antibiotics and admission for definitive surgical treatment. Patient may given cefepime and vancomycin which will be renally dosed due to apparent mild chronic kidney disease. Differential Diagnosis Differential Diagnoses: The differential diagnosis associated with the presentation includes Cellulitis Osteomyelitis Diabetic ulcer Sepsis Arterial occlusion Admission/Observation Consideration of admission/observation: Escalation of care including admission/observation considered Patient will require admission for diabetic wounds with vascular complications Consult Healthcare Provider Management of the patient was discussed with: Medical Radiation Therapist (Dr. Rizvi, vascular surgery) Lab Data MDM Lab Attestation statement: I reviewed the patient's lab results. Leukocytosis to 13.9 with a left shift. Patient has a hyponatremia of 128 and a potassium of 5.7. This was addressed with IV fluids and Lokelma. Patient's BUN and creatinine elevated to 34 and 1.44 respectively, her most recent labs are consistent with mild chronic kidney disease. She furthermore has an elevated glucose of 258 with no evidence of DKA. Mild transaminitis of unclear etiology and elevated inflammatory markers 08/25/23 07:11 08/25/23 07:11 Labs: Lab Results 08/24/23 08/24/23 Range/Units 14:32 14:33 WBC 13.9 H (4.8-10.8) X10*3/uL RBC 3.45 L (4.20-5.50) X10*6/uL Hgb 8.7 L (12.0-16.0) g/dl Hct 27.7 L (37.0-47.0) % MCV 80.3 (80.0-98.0) fL MCH 25.2 L (27.0-33.0) pg MCHC 31.4 (31.0-35.0) g/dl RDW 13.7 (11.0-16.0) % Plt Count 373 D (160-400) X10*3/uL MPV 9.7 (9.4-12.3) fL Immature Gran % (Auto) 0.8 H (0.0-0.4) % Neut % (Auto) 80.8 H (45-73) % Lymph % (Auto) 7.3 L (20-40) % [place] % (Auto) 10.1 (2-11) % Eos % (Auto) 0.8 (0-4) % Baso % (Auto) 0.2 (0-2) % Lymph # (Auto) 1.0 L (1.2-4.9) X10*3/uL [place] # (Auto) 1.4 H (0.1-1.2) X10*3/uL Eos # (Auto) 0.1 (0.0-0.4) X10*3/uL Baso # (Auto) 0.0 (0.0-0.2) X10*3/uL Abs Immat Gran (auto) 0.11 H (0.00-0.03) X10*3/uL Absolute Neuts (auto) 11.3 H (2.0-8.3) x10*3/uL Absolute Nucleated RBC 0.000 (0.0-0.012) X10*3/uL Nucleated RBC % (auto) 0.0 (0.0-0.2) /100WBC ESR 111 H (0-20) MM/HR Sodium 128 L (135-145) mmol/L Potassium 5.7 H D (3.3-5.1) mmol/L Chloride 96 (96-108) mmol/L Carbon Dioxide 22 (22-29) mmol/L Anion Gap 16 (12-20) BUN 34 H (9-16) mg/dL Creatinine 1.44 H (0.5-1.4) mg/dL Estim Creat Clear Calc 30.6 Estimated GFR 36 Random Glucose 258 H (60-115) mg/dL Lactic Acid 1.2 (0.5-2.0) mmol/L Calcium 9.1 D (8.4-10.2) mg/dL Total Bilirubin 0.2 (0.0-1.0) mg/dL AST 45 H (5-31) U/L ALT 62 H (0-31) U/L Alkaline Phosphatase 276 H (39-117) U/L C-Reactive Protein 19.20 H (< or = 0.50) mg/dL Total Protein 8.2 H (6.5-8.0) g/dL Albumin 2.8 L (3.5-5.0) g/dL Independent Interpretation I performed an independent interpretation of an: Plain X-Ray (No obvious signs of osteomyelitis. Previous partial and per the right great toe noted) Radiology Impression Discussion of test interpretation with radiology: I have reviewed the radiologist's reading. (Elevated velocity consistent with severe stenosis in the distal right superficial femoral artery. Diffuse atherosclerotic calcified plaque is seen in the arterial vessels. Occlusion of the distal right posterior tibial artery. Patent but dampened waveforms seen in the anterior tibial and peroneal ar) Discharge Plan Discharge Clinical Impression: Cellulitis of foot, right, Diabetic ulcer of toe Patient Disposition: Admitted As Inpatient
[2023-08-24 18:00] VITALS: BP 180/75; PULSE 78; RESP 18; TEMP 37.2; O2SAT 94
--- NOTE | 2023-08-24 18:36 | PC.NURSE ---
pt aox4. comes in with family with right tow infection. pt's family member reports that it has been getting worse but family has had trouble convincing patient to come in. Left sided BKA. Pt second toe is black. IV inserted. labs drawn in triage. fluids and first abx infusing per mar. pt reports no pain.
--- NOTE | 2023-08-24 19:07 | PC.NURSE ---
assumed care of pt
[2023-08-24 19:30] VITALS: BP 192/86; PULSE 82; RESP 17; TEMP 37.6; O2SAT 98
--- NOTE | 2023-08-24 19:49 | PHA.MEDREC ---
Pharmacy Consult ? Medication Reconciliation Pharmacy has completed the medication reconciliation. Patient son reports patient is only on insulin right now for prescriptions. Reports she does take aspirin and vitamins. [place], PharmD
--- NOTE | 2023-08-24 19:51 | PM.IMHP ---
History of Present Illness Date of Service: 08/24/23 Chief Complaint: Toe discoloration This is a 72-year-old female with pertinent history of peripheral arterial disease status left BKA, essential hypertension, insulin-dependent diabetes mellitus who presents to the emergency department for evaluation of right foot toe discoloration, swelling and discharge. History obtained from son at bedside. The son states that this has been ongoing since the starting of July. He has noticed discoloration of the right 2nd toe with intermittent purulent drainage. Also has associated redness and swelling. No fever or chills. Patient denies pain with ambulation. No chest discomfort, palpitations, shortness of breath, abdominal pain, changes in urinary or bowel habits. In the emergency department, patient was found to be septic and initiated on empiric IV antibiotics. Imaging with severe stenosis in the distal right superior femoral artery and occlusion of the distal right posterior tibial artery Review of Systems Constitutional: Constitutional: Reports no additional constitutional complaints Cardiovascular: Cardiovascular: Reports no additional cardiovascular complaints Respiratory: Respiratory: Reports no additional respiratory complaints Gastrointestinal: Gastrointestinal: Reports no additional gastrointestinal complaints Genitourinary: Genitourinary: Reports no additional female genitourinary complaints Musculoskeletal: Musculoskeletal: Reports joint swelling PMFSH Medical History Hypertension Essential hypertension Mood disorder Diabetes PAD (peripheral artery disease) History of left below knee amputation Pertinent family history: No family history of early CAD Surgical History History of femoral angiogram History of left below knee amputation Pacemaker Social History Household Members: Unknown / Unable to assess Housing: Unknown / Unable to assess Unable to assess alcohol history related to: Unknown Alcohol intake: current Alcohol intake frequency: holidays/special occasions only Patient Tobacco Use Status: Never used Tobacco Smoked in Last 30 Days: No Use of substances other than those prescribed or required for medical reasons: No Advance Directives: No Advance Directives Information Provided: No service: No Current occupational status: retired Meds Allergies Allergy/AdvReac Type Severity Reaction Status Date / Time penicillin V Allergy Unknown RSH,ITCHY Verified 11/07/22 13:40 Active Medications: Current Medications Acetaminophen (Acetaminophen 325 Mg Tablet) 650 mg PO Q6H PRN PRN Reason: Pain, Mild (Pain Scale 1-3) Dextrose (Dextrose 50 % 25 Gm/50 Ml Syringe) 25 gm IVPUSH Q15M PRN; Protocol PRN Reason: per Hypoglycemia Standing Ord. Glucose (Glucose Gel 15 Gm Gel..Gram.) 15 gm PO Q15M PRN; Protocol PRN Reason: per Hypoglycemia Standing Ord. Insulin Human Lispro (Insulin Lispro 100 Unit/Ml 3 Ml Vial) 0 unit SUBCUT QIDACHS [facility]; Protocol Melatonin (Melatonin 3 Mg Tablet) 6 mg PO BEDTIME PRN PRN Reason: Insomnia Ondansetron HCl (Ondansetron Hcl 4 Mg/2 Ml Vial) 4 mg IVPUSH Q8H PRN PRN Reason: Nausea and Vomiting Pharmacy Consult (Consult Rx Vancomycin Dosing) 1 each MISCELLANE DAILY PRN PRN Reason: Consult order Sodium Chloride (0.9 % Sodium Chloride Flush 3 Ml Syringe) 3 ml IVFLUSH [facility] Home Medications Medication Instructions Recorded Confirmed Last Taken Type blood sugar diagnostic #10 ea 06/11/20 Unknown History insulin aspart U-100 100 unit/mL 20 unit subcut TIDAC 06/11/20 08/24/23 Unknown History (3 mL) subcutaneous pen lancets 28 gauge #100 ea 06/11/20 Unknown History pen needle, diabetic 31 gauge x #50 ea 06/11/20 Unknown History 08/24 insulin degludec 200 unit/mL (3 60 unit subcut BEDTIME 07/20/21 08/24/23 Unknown History mL) subcutaneous pen (Tresiba FlexTouch U-200 insulin) pen needle, diabetic 31 gauge x #50 ea 07/20/21 Unknown History aspirin 81 mg chewable tablet 81 mg PO DAILY 10/22/22 08/24/23 Unknown History multivitamin 1 tab PO DAILY 08/24/23 08/24/23 Unknown History Physical Exam Vital Signs and Narrative: Vital Signs: Last Vital Signs Temp 99.6 F 08/24/23 19:30 Pulse 82 08/24/23 19:30 Resp 17 08/24/23 19:30 BP 192/86 H 08/24/23 19:30 Pulse Ox 98 08/24/23 19:30 O2 Del Method Room Air 08/24/23 19:30 BMI result Body Mass Index 32.3 Middle-aged female lying in bed in no distress Neck supple, no JVD Regular rate and rhythm, S1-S2 heard Regular breath sounds bilaterally, no wheezing or crackles appreciated Abdomen soft nontender, no guarding, no rigidity Patient is awake, alert and oriented to self, place, time and person ; no focal motor deficit Musculoskeletal: Right lower extremity as pictured below, left BKA present Psych: Normal mood No pedal edema Skin: Other: Patient has necrosis the right 2nd toe which is completely black in color. She also has significant lichenification with partial amputation of the right 1st toe. There is surrounding erythema with skin changes extending towards the proximal midfoot. There is no erythema or edema extending beyond the ankle. Results Labs 08/24/23 14:33 08/24/23 14:33 Labs: Laboratory Results - last 24 hr 08/24/23 08/24/23 14:32 14:33 MCV 80.3 MCH 25.2 L MCHC 31.4 RDW 13.7 Plt Count 373 D MPV 9.7 Immature Gran % (Auto) 0.8 H Neut % (Auto) 80.8 H Lymph % (Auto) 7.3 L [place] % (Auto) 10.1 Eos % (Auto) 0.8 Baso % (Auto) 0.2 Lymph # (Auto) 1.0 L [place] # (Auto) 1.4 H Eos # (Auto) 0.1 Baso # (Auto) 0.0 Abs Immat Gran (auto) 0.11 H Absolute Neuts (auto) 11.3 H Absolute Nucleated RBC 0.000 Nucleated RBC % (auto) 0.0 ESR 111 H Anion Gap 16 Estim Creat Clear Calc 30.6 Estimated GFR 36 Random Glucose 258 H Lactic Acid 1.2 Calcium 9.1 D Total Bilirubin 0.2 AST 45 H ALT 62 H Alkaline Phosphatase 276 H C-Reactive Protein 19.20 H Total Protein 8.2 H Albumin 2.8 L Imaging Radiologist's Impressions: Impressions Duplex Scan Lower Extremity Artery 08/24/23 14:39 IMPRESSION: Elevated velocity consistent with severe stenosis in the distal right superficial femoral artery. Diffuse atherosclerotic calcified plaque is seen in the arterial vessels. Occlusion of the distal right posterior tibial artery. Patent but dampened waveforms seen in the anterior tibial and peroneal arteries. Findings are stable compared to the prior exam from 10/24/2022 Foot X-Ray 08/24/23 14:53 IMPRESSION: 1. Soft tissue swelling and subcutaneous gas at the second and third toes. No radiographic findings of osteomyelitis. 2. Status post amputation of the distal half of the great toe distal phalanx. Assessment and Plan (1) Diabetic ulcer of toe: Status: Acute (2) Cellulitis of foot, right: Status: Acute Plan This is a 72-year-old female with pertinent history of peripheral arterial disease status left BKA, essential hypertension, insulin-dependent diabetes mellitus who presents to the emergency department for evaluation of right foot toe discoloration, swelling and discharge. #. Sepsis due to right foot cellulitis, diabetic foot infection with wet gangrene of the 2nd toe: Resuscitated with IV crystalloids. Initiating empiric IV antibiotics. Lactic acid and blood culture obtained. Consulted vascular surgery, appreciate assistance. #. Peripheral arterial disease: Imaging with severe stenosis in the distal right superior femoral artery and occlusion of the distal right posterior tibial artery. Appreciate vascular surgery assistance. ?not on anti platelet agent, on high-intensity statin. #. Insulin-dependent diabetes mellitus with hyperglycemia: Reduced home basal insulin. Initiating Accu-Cheks with sliding scale insulin #. Essential hypertension: Continue home antihypertensives #. Mild hyponatremia: Corrected sodium 131 with hyperglycemia. Monitor with crystalloid resuscitation. Urine studies pending #. Hyperkalemia: Given Lokelma in the ER. Follow #. Normocytic anemia, likely due to chronic inflammation: Hemoglobin above transfusion threshold #. Chronic kidney disease: Creatinine at baseline. Monitor creatinine and urine output #. Transaminitis: Due to sepsis Med rec pending DVT prophylaxis: Lovenox Full code Admit as inpatient and will require two night minimum hospital stay for IV antibiotics (as above), which is not possible in a lesser acute setting. Specialist consult pending Quality Stroke Does the patient have a stroke diagnosis?: No VTE Prior VTE?: No VTE Risk Level:: Medical - moderate - high VTE Device Contraindication: Treatment Not Indicated VTE Drug Contraindication: N/A - Med Ordered
--- NOTE | 2023-08-24 21:53 | PHA.PROG ---
Admission Date/Time: August 24, 2023 19:48 Indication: Sepsis due to right foot cellulitis, diabetic foot infection Weight in k.575 kg Adjusted body weight in K kg [place] body weight in K.2 kg Obesity Dosing Indication % IBW: 167 % Serum Creatinine - Last 168 Hours 08/24/23 14:33 Creatinine 1.44 H Estimated CrCl and GFR - Last 168 Hours 08/24/23 14:33 Estim Creat Clear Calc 30.6 Estimated GFR 36 Vancomycin Loading Dose: 1500 (20 mg/kg) Current Vancomycin Dosing Regimen: 1000 mg Q24H Date and Time for next Vancomycin Level to be drawn: 08/26 @ 1800 Pharmacist Comments on Vancomycin Plan: patient received load dose in the er 08/24 @ 1950. Patient did not receive 25 mg/kg load due to ANNIE and age. Maintenance dose vancomycin 1000 mg Q24H is scheduled to start 08/25 @ 1999. Predicted AUC 515 with a trough of 16.5 Random level will been drawn prior to 3rd dose to assess for safety and effifacy due to patient weight, age and renal funciton Pharmacy will monitor renal function daily, and adjust if necessary. [place], [place] Vancomycin dosing will take advantage of [employer]om[employer] - Biomolecular Determination as a clinical decision support tool that uses Bayesian modeling to calculate individual patient's pharmacokinetic parameters and forecast the patient's drug concentration time course with the target goal AUC 24 range of 400 - 600 mg/L/hr.
[2023-08-24 22:02] VITALS: BP 160/53; PULSE 64; RESP 27; O2SAT 93
[2023-08-24 23:52] VITALS: BP 150/68; PULSE 78; RESP 18; TEMP 37.7; O2SAT 98
--- NOTE | 2023-08-24 23:53 | MHC.EDTECH ---
This tech took over care of patient at 2300, Hourly rounds and vitals completed, patient has a pure-wick in place by previous shift,clean and dry,unable to obtain urine at this time patient has no output. Patient repositioned to comfort Belonging list competed by pervious tech. Call duran within reach
--- NOTE | 2023-08-25 00:42 | PC.NURSE ---
Nurse to Nurse reports given to JULY Rawls
--- NOTE | 2023-08-25 02:17 | PC.NURSE ---
I assumed care of the pt in overflow at approx 0100. Pt was moved to hospital bed via drawsheet. Old linens were removed and pt was given fresh linens. Purewick is in place. Pt is A&Ox4, GCS 15, with warm, dry skin. Due to amputation of the left leg, pt is nonambulatory. Pt has no complaints at this time and shows no signs of obvious distress or shortness of breath. Pt has a working 20g IV in the left forearm. Pt is NPO at this time in anticipation of meeting with vascular surgery in the morning.
[2023-08-25 05:46] VITALS: BP 142/73; PULSE 73; RESP 17; TEMP 37.1; O2SAT 94
--- NOTE | 2023-08-25 07:34 | HO.PM.IMPN ---
Subjective Subjective Date of Service: 08/25/23 Interval History: f/u o diabetic foot ulcer, gangrene and sepsis has not pain, no change in appearance Physical Exam Vital Signs: Vital Signs: Last Vital Signs Temp 98.8 F 08/25/23 05:46 Pulse 73 08/25/23 05:46 Resp 17 08/25/23 05:46 BP 142/73 H 08/25/23 05:46 Pulse Ox 94 08/25/23 05:46 O2 Del Method Room Air 08/25/23 05:46 BMI result Body Mass Index 32.3 Const: Other: General: AO X 3, no acute distress Resp: CTA bilateral CVS: S1,S2,RRR GI: +BS, NT, no distention Skin: left bka Neuro: motor grossly intact Psych: appropriate affect Objective Data Active Medications Acetaminophen (Acetaminophen 325 Mg Tablet) 650 mg PO Q6H PRN PRN Reason: Pain, Mild (Pain Scale 1-3) Last Admin: 08/24/23 22:07 Dose: 650 mg Documented By: ELA Aspirin (Aspirin 81 Mg Tab.Chew) 81 mg PO DAILY [facility] Dextrose (Dextrose 50 % 25 Gm/50 Ml Syringe) 25 gm IVPUSH Q15M PRN; Protocol PRN Reason: per Hypoglycemia Standing Ord. Glucose (Glucose Gel 15 Gm Gel..Gram.) 15 gm PO Q15M PRN; Protocol PRN Reason: per Hypoglycemia Standing Ord. Cefepime HCl 2 gm/ Sodium (Chloride) 50 mls @ 100 mls/hr IV Q12H [facility] Last Infusion: 08/25/23 06:10 Dose: Infused Documented By: COLIN Vancomycin HCl 1,000 mg/ (Sodium Chloride) 270 mls @ 270 mls/hr IV Q24H [facility] Insulin Glargine (Insulin Glargine,Hum.Rec.Anlog 100 Unit/Ml 10 Ml Vial) 48 unit SUBCUT BEDTIME [facility] Last Admin: 08/24/23 22:06 Dose: 48 unit Documented By: ELA Insulin Human Lispro (Insulin Lispro 100 Unit/Ml 3 Ml Vial) 0 unit SUBCUT QIDACHS [facility]; Protocol Last Admin: 08/25/23 07:31 Dose: Not Given Documented By: WENDY Non-Admin Reason: No Insulin Coverage Comments: POC 86 Melatonin (Melatonin 3 Mg Tablet) 6 mg PO BEDTIME PRN PRN Reason: Insomnia Last Admin: 08/24/23 22:07 Dose: 6 mg Documented By: ELA Multivitamins/Vitamin C (Multivitamin Tablet) 1 tab PO DAILY [facility] Ondansetron HCl (Ondansetron Hcl 4 Mg/2 Ml Vial) 4 mg IVPUSH Q8H PRN PRN Reason: Nausea and Vomiting Pharmacy Consult (Consult Rx Vancomycin Dosing) 1 each MISCELLANE DAILY PRN PRN Reason: Consult order Sodium Chloride (0.9 % Sodium Chloride Flush 3 Ml Syringe) 3 ml IVFLUSH QSHIFT [facility] Last Admin: 08/25/23 00:14 Dose: Not Given Documented By: ELA Non-Admin Reason: IV Running Labs 08/25/23 07:11 08/25/23 07:11 Labs: Laboratory Results - last 24 hr 08/24/23 08/24/23 08/24/23 14:32 14:33 20:42 MCV 80.3 MCH 25.2 L MCHC 31.4 RDW 13.7 Plt Count 373 D MPV 9.7 Immature Gran % (Auto) 0.8 H Neut % (Auto) 80.8 H Lymph % (Auto) 7.3 L [place] % (Auto) 10.1 Eos % (Auto) 0.8 Baso % (Auto) 0.2 Lymph # (Auto) 1.0 L [place] # (Auto) 1.4 H Eos # (Auto) 0.1 Baso # (Auto) 0.0 Abs Immat Gran (auto) 0.11 H Absolute Neuts (auto) 11.3 H Absolute Nucleated RBC 0.000 Nucleated RBC % (auto) 0.0 ESR 111 H Anion Gap 16 Estim Creat Clear Calc 30.6 Estimated GFR 36 POC Glucose Random Glucose 258 H Osmolality 297 Lactic Acid 1.2 Calcium 9.1 D Total Bilirubin 0.2 AST 45 H ALT 62 H Alkaline Phosphatase 276 H C-Reactive Protein 19.20 H Total Protein 8.2 H Albumin 2.8 L 08/24/23 08/25/23 21:45 07:29 MCV MCH MCHC RDW Plt Count MPV Immature Gran % (Auto) Neut % (Auto) Lymph % (Auto) [place] % (Auto) Eos % (Auto) Baso % (Auto) Lymph # (Auto) [place] # (Auto) Eos # (Auto) Baso # (Auto) Abs Immat Gran (auto) Absolute Neuts (auto) Absolute Nucleated RBC Nucleated RBC % (auto) ESR Anion Gap Estim Creat Clear Calc Estimated GFR POC Glucose 327 H 86 Random Glucose Osmolality Lactic Acid Calcium Total Bilirubin AST ALT Alkaline Phosphatase C-Reactive Protein Total Protein Albumin Assessment and Plan (1) Diabetic ulcer of toe: Status: Acute (2) Cellulitis of foot, right: Status: Acute Plan This is a 72-year-old female with pertinent history of peripheral arterial disease status left BKA, essential hypertension, insulin-dependent diabetes mellitus who presents to the emergency department for evaluation of right foot toe discoloration, swelling and discharge. Sepsis due to right foot cellulitis, diabetic foot infection with wet gangrene of the 2nd toe -continue IV Cefepime, started 08/24 -Vascular will perform angiogram on sunday 08/27, and likely TMA to follow -ID consult -follow cultures Peripheral arterial disease: Imaging with severe stenosis in the distal right superior femoral artery and occlusion of the distal right posterior tibial artery. -Vascular consular assessment as above Insulin-dependent diabetes mellitus with hyperglycemia -Lantus in place of tresiba at reduced dose -POC, sliding scale, diabetic diet Essential hypertension:was on norvasc and lisinopril at home, restart norvasc 5, hold lisinopril Mild hyponatremia: repeat following IVF Hyperkalemia, treated with Lokelma, repeat level today Normocytic anemia, likely due to chronic inflammation: Hemoglobin above transfusion threshold Stage 3B Moderate CKD (GFR = 30-44 mL/min), pending Transaminitis: Due to sepsis, monitor LFTs, hold Lipitor Med rec completed DVT prophylaxis: Lovenox Full code Need for inpatient: IV Abx for diabetic foot gangrene with sepsis, at risk for limb loss and likely will need amputation Quality Stroke Does the patient have a stroke diagnosis?: No VTE Prior VTE?: No VTE Risk Level:: Medical - moderate - high VTE Device Contraindication: Treatment Not Indicated VTE Drug Contraindication: N/A - Med Ordered
--- NOTE | 2023-08-25 09:29 | MHC.CM.PN ---
PATIENT REPORTS THAT SHE LIVES WITH HER TWO SONS. SHE HAS A PROSTHETIC LEFT LEG (BED SIDE AT THIS TIME), CANE, WALKER, AND WHEELCHAIR. HCP IS ON FILE AND VERIFIED. COPY PRINTED OUT AND PLACED IN CHART AGENTS ARE BOTH PATIENT'S DAUGHTERS. PATIENT DOES REPORTS HAVING A PCP, BUT UNABLE TO RECALL THE NAME PLAN IS FOR VASCULAR INTERVENTION IMM 08/25 COPY IN ED MEDICAL RECORDS BIN ORIGINAL IS WITH PATIENT
--- NOTE | 2023-08-25 10:44 | PC.NURSE ---
Son at bedside currently, upset that no one has seen her by vascular, this RN reached out to provider, who reported she will be down shortly. plan of care discussed.
--- NOTE | 2023-08-25 11:11 | PM.CNGS ---
History of Present Illness Consult details Consult date: 08/25/23 Reason for consult: wound care Narrative: Very complex 72-year-old female well known to me with prior history of nonhealing left leg which subsequently went on to a BKA. She has this known gangrenous 2nd toe and nonhealing great toe ulcer that has been progressing for quite some time. She has refused amputation in the past. She has had significant pain and discomfort that brought her into the hospital. She now presents for evaluation with her son at bedside. Review of Systems Review of Systems: Yes all other systems are reviewed and are negative Constitutional: Constitutional: Reports no additional constitutional complaints ENT: Reports Normal hearing present Cardiovascular: Cardiovascular: Denies chest pain, Denies chest pain at rest, Denies chest pain with activity and Denies pedal edema Respiratory: Respiratory: Denies cough Gastrointestinal: Gastrointestinal: Denies abdominal pain Musculoskeletal: Musculoskeletal: Denies abnormal gait, Denies muscle cramps and Denies radiating pain into limb Integumentary/Breasts: Skin/Breast: Denies skin ulcer and Denies wounds Neurologic: Reports Normal hearing present and Denies abnormal gait Psychiatric: Psychiatric: Reports no additional psychiatric complaints [facility] Past Medical History Medical History (Updated 08/25/23 @ 11:13 by James Puentes MD) PAD (peripheral artery disease) Hypertension Essential hypertension Mood disorder Diabetes History of left below knee amputation Surgical History Surgical History History of femoral angiogram History of left below knee amputation Pacemaker Social History Social History Household Members: Unknown / Unable to assess Housing: Unknown / Unable to assess Unable to assess alcohol history related to: Unknown Alcohol intake: current Alcohol intake frequency: holidays/special occasions only Patient Tobacco Use Status: Never used Tobacco Smoked in Last 30 Days: No Use of substances other than those prescribed or required for medical reasons: No Advance Directives: No Advance Directives Information Provided: No Nutrition Risks: No Nutritional Risk service: No Current occupational status: retired Meds Allergies Allergy/AdvReac Type Severity Reaction Status Date / Time penicillin V Allergy Unknown RSH,ITCHY Verified 11/07/22 13:40 Active Medications: Current Medications Acetaminophen (Acetaminophen 325 Mg Tablet) 650 mg PO Q6H PRN PRN Reason: Pain, Mild (Pain Scale 1-3) Last Admin: 08/24/23 22:07 Dose: 650 mg Aspirin (Aspirin 81 Mg Tab.Chew) 81 mg PO DAILY [facility] Last Admin: 08/25/23 09:28 Dose: Not Given Dextrose (Dextrose 50 % 25 Gm/50 Ml Syringe) 25 gm IVPUSH Q15M PRN; Protocol PRN Reason: per Hypoglycemia Standing Ord. Glucose (Glucose Gel 15 Gm Gel..Gram.) 15 gm PO Q15M PRN; Protocol PRN Reason: per Hypoglycemia Standing Ord. Cefepime HCl 2 gm/ Sodium (Chloride) 50 mls @ 100 mls/hr IV Q12H [facility] Last Infusion: 08/25/23 06:10 Dose: Infused Vancomycin HCl 1,000 mg/ (Sodium Chloride) 270 mls @ 270 mls/hr IV Q24H [facility] Insulin Glargine (Insulin Glargine,Hum.Rec.Anlog 100 Unit/Ml 10 Ml Vial) 48 unit SUBCUT BEDTIME [facility] Last Admin: 08/24/23 22:06 Dose: 48 unit Insulin Human Lispro (Insulin Lispro 100 Unit/Ml 3 Ml Vial) 0 unit SUBCUT QIDACHS [facility]; Protocol Last Admin: 08/25/23 07:31 Dose: Not Given Melatonin (Melatonin 3 Mg Tablet) 6 mg PO BEDTIME PRN PRN Reason: Insomnia Last Admin: 08/24/23 22:07 Dose: 6 mg Multivitamins/Vitamin C (Multivitamin Tablet) 1 tab PO DAILY [facility] Last Admin: 08/25/23 09:28 Dose: Not Given Ondansetron HCl (Ondansetron Hcl 4 Mg/2 Ml Vial) 4 mg IVPUSH Q8H PRN PRN Reason: Nausea and Vomiting Pharmacy Consult (Consult Rx Vancomycin Dosing) 1 each MISCELLANE DAILY PRN PRN Reason: Consult order Sodium Chloride (0.9 % Sodium Chloride Flush 3 Ml Syringe) 3 ml IVFLUSH QSHIFT [facility] Last Admin: 08/25/23 10:52 Dose: 3 ml Home Medications Medication Instructions Recorded Confirmed Last Taken Type blood sugar diagnostic #10 ea 06/11/20 Unknown History insulin aspart U-100 100 unit/mL 20 unit subcut TIDAC 06/11/20 08/24/23 Unknown History (3 mL) subcutaneous pen lancets 28 gauge #100 ea 06/11/20 Unknown History pen needle, diabetic 31 gauge x #50 ea 06/11/20 Unknown History 1/4 insulin degludec 200 unit/mL (3 60 unit subcut BEDTIME 07/20/21 08/24/23 Unknown History mL) subcutaneous pen (Tresiba FlexTouch U-200 insulin) pen needle, diabetic 31 gauge x #50 ea 07/20/21 Unknown History aspirin 81 mg chewable tablet 81 mg PO DAILY 10/22/22 08/24/23 Unknown History multivitamin 1 tab PO DAILY 08/24/23 08/24/23 Unknown History Physical Exam Vital Signs: Vital Signs: Last Vital Signs Temp 98.8 F 08/25/23 05:46 Pulse 73 08/25/23 05:46 Resp 17 08/25/23 05:46 BP 142/73 H 08/25/23 05:46 Pulse Ox 94 08/25/23 05:46 O2 Del Method Room Air 08/25/23 05:46 BMI result Body Mass Index 32.3 Const: General: cooperative, healthy appearing and comfortable Orientation/consciousness: oriented to person, oriented to place and oriented to time HEENT: Head: Yes normal to inspection Neck: Neck: Yes normal visual inspection Carotids: no bruits Chest: Chest palpation & inspection: normal inspection of the chest Resp: Effort & Inspection: normal respiratory effort and able to speak in complete sentences Auscultation: clear to auscultation bilaterally, no crackles, no rales, no rhonchi and no wheezes Cardio: Rate: regular rate Rhythm: regular rhythm Heart sounds: S1 normal heart sound present and S2 normal heart sound present Bruits: no carotid bruits Peripheral pulses: Peripheral pulses 2+ throughout GI: Inspection: Yes normal to inspection Skin: Other: Gangrenous right 2nd toe with blistering on the plantar aspect along with the great toe deformity Wounds: no wounds Hair: normal Neuro: General: oriented to person, oriented to place and oriented to time Cranial nerves: Yes CN's II-XII intact bilaterally and Yes Normal hearing present Cognition (Neuro): normal cognition Motor exam (neuro): 5/5 motor strength present throughout Extrem: Other: venous exam: No significant superficial varicosities or spider telangiectasias, minimal edema General: No clubbing, No cyanosis and No edema Psych: Appearance: grossly normal Mental Status: mental status grossly normal Speech and movement: Normal speech and movement present Results Labs 08/25/23 07:11 08/25/23 07:11 Labs: Abnormal lab results 08/24/23 08/24/23 08/24/23 Range/Units 14:32 14:33 21:45 WBC 13.9 H (4.8-10.8) X10*3/uL RBC 3.45 L (4.20-5.50) X10*6/uL Hgb 8.7 L (12.0-16.0) g/dl Hct 27.7 L (37.0-47.0) % MCV (80.0-98.0) fL MCH 25.2 L (27.0-33.0) pg MPV (9.4-12.3) fL Immature Gran % (Auto) 0.8 H (0.0-0.4) % Neut % (Auto) 80.8 H (45-73) % Lymph % (Auto) 7.3 L (20-40) % Atlantic % (Auto) (2-11) % Lymph # (Auto) 1.0 L (1.2-4.9) X10*3/uL [place] # (Auto) 1.4 H (0.1-1.2) X10*3/uL Abs Immat Gran (auto) 0.11 H (0.00-0.03) X10*3/uL Absolute Neuts (auto) 11.3 H (2.0-8.3) x10*3/uL ESR 111 H (0-20) MM/HR Sodium 128 L (135-145) mmol/L Potassium 5.7 H D (3.3-5.1) mmol/L Anion Gap (12-20) BUN 34 H (9-16) mg/dL Creatinine 1.44 H (0.5-1.4) mg/dL POC Glucose 327 H (60-115) mg/dL Random Glucose 258 H (60-115) mg/dL AST 45 H (5-31) U/L ALT 62 H (0-31) U/L Alkaline Phosphatase 276 H (39-117) U/L C-Reactive Protein 19.20 H (< or = 0.50) mg/dL Total Protein 8.2 H (6.5-8.0) g/dL Albumin 2.8 L (3.5-5.0) g/dL 08/25/23 Range/Units 07:11 WBC 11.5 H (4.8-10.8) X10*3/uL RBC 2.97 L (4.20-5.50) X10*6/uL Hgb 7.6 L (12.0-16.0) g/dl Hct 23.7 L (37.0-47.0) % MCV 79.8 L (80.0-98.0) fL MCH 25.6 L (27.0-33.0) pg MPV 9.3 L (9.4-12.3) fL Immature Gran % (Auto) 0.8 H (0.0-0.4) % Neut % (Auto) 74.1 H (45-73) % Lymph % (Auto) 9.6 L (20-40) % Atlantic % (Auto) 12.9 H (2-11) % Lymph # (Auto) 1.1 L (1.2-4.9) X10*3/uL Atlantic # (Auto) 1.5 H (0.1-1.2) X10*3/uL Abs Immat Gran (auto) 0.09 H (0.00-0.03) X10*3/uL Absolute Neuts (auto) 8.5 H (2.0-8.3) x10*3/uL ESR (0-20) MM/HR Sodium 131 L (135-145) mmol/L Potassium (3.3-5.1) mmol/L Anion Gap 11 L (12-20) BUN 31 H (9-16) mg/dL Creatinine (0.5-1.4) mg/dL POC Glucose (60-115) mg/dL Random Glucose (60-115) mg/dL AST (5-31) U/L ALT (0-31) U/L Alkaline Phosphatase (39-117) U/L C-Reactive Protein (< or = 0.50) mg/dL Total Protein (6.5-8.0) g/dL Albumin (3.5-5.0) g/dL Short CBC 08/24/23 08/25/23 Range/Units 14:33 07:11 WBC 13.9 H 11.5 H (4.8-10.8) X10*3/uL Hgb 8.7 L 7.6 L (12.0-16.0) g/dl Hct 27.7 L 23.7 L (37.0-47.0) % Plt Count 373 D 309 (160-400) X10*3/uL BMP 08/24/23 08/25/23 14:33 07:11 Sodium 128 L 131 L Potassium 5.7 H D 4.2 D Chloride 96 99 Carbon Dioxide 22 25 BUN 34 H 31 H Creatinine 1.44 H 1.38 Calcium 9.1 D 8.4 D Liver Function 08/24/23 Range/Units 14:33 Total Bilirubin 0.2 (0.0-1.0) mg/dL AST 45 H (5-31) U/L ALT 62 H (0-31) U/L Alkaline Phosphatase 276 H (39-117) U/L Albumin 2.8 L (3.5-5.0) g/dL All other labs normal. Imaging Additional studies: noninvasive arterial testing was reviewed. There is concern SFA and tibial vessel disease. Assessment and Plan (1) PAD (peripheral artery disease): Status: Acute Plan Patient notes Nonhealing right leg ulcer. I have discussed the pathophysiology of peripheral vascular disease with the patient. I have also discussed risk factor modification. I have reviewed the patient's arterial testing which reveals right SFA and tibial disease. the patient would benefit from a right leg endovascular peripheral angiogram with possible angioplasty, stent, and/or atherectomy. This has been discussed in detail with the patient along with risks, benefits, and complications. This includes but is not limited to bleeding, infection, heart attack, need for emergent surgical repair, limb ischemia, blood vessel damage, bleeding, puncture, kidney injury, bruising, allergic reaction, and skin reaction. The patient demonstrates a clear understanding. We will schedule for the next appropriate time. Thank you for allowing us to assist in this patient's care. Procedures Date of Service Date of Service: 08/25/23
[2023-08-25 16:33] VITALS: BP 186/83; PULSE 80; RESP 16; TEMP 36.9; O2SAT 96
--- NOTE | 2023-08-25 16:34 | HO.WOUND ---
Wound Consult: Initial 72yr old [place] [facility] [place] No08/24/23 19:48- See progress notes and H&P for detailed history. Wound consult placed for right foot arterial wound scheduled for Amputation with Dr. Puentes once OR scheduling allows. Arrival to bedside pt and son are agreeable to assessment - son reports she speaks kreol and he provided interpretation throughout visit - denies medical reviewer. Pt reports she has had the wounds for some time and soaks the foot but does not provide any other topical care at home consistently. Right Great and 2nd toe Etiology: ??Arterial Wound Wound Bed: necrotic firm brittle toe - moist drainage at base of toe with extending wound observed to plantar. fluctuant to plantar area and able to express foul smelling creamy quintanilla drainage. Lateral side to great toe with necrotic wound and dry lifting callused edges. Drainage / Odor: Foul creamy drainage Edges: ? Irregular and nonadeherent Elle wound: ?Hyperpigmentation dry tissue on dorsal side of foot. Plantar wound with intact thick epidermal covering in place - Fluctuance noted under intact tissue Pain: Pt reports neuropathy Goals of Treatment: ? Plan is for OR defer to Dr. Puentes - Topical treatment to keep dry and clean with betadine and aliginate Recommendations: 1. Right Foot - Elevate foot off of bed surface. Cleanse with Betadine allow to dry. To plantar wound apply single layer Alginate (DurafiberAG), cover wound and toe with ABD pad, and gauze wrap. Change Daily. Goal is to keep wound dry - do not apply topical dressing that will add moisture to wounds. Maintain blood glucose levels per Providers orders. Re-consult wound care Nurse for wound deterioration or wound changes.
[2023-08-25 17:25] VITALS: BP 172/80; PULSE 75; RESP 18; TEMP 37.1; O2SAT 97
[2023-08-25 17:58] VITALS: BMI 31.6
[2023-08-25 19:37] VITALS: BP 167/72; PULSE 66; RESP 18; TEMP 37.4; O2SAT 94
[2023-08-26 00:13] VITALS: BP 141/67; PULSE 68; RESP 16; TEMP 36.1; O2SAT 95
[2023-08-26 07:31] VITALS: BP 158/69; PULSE 78; RESP 16; TEMP 36.5; O2SAT 96
--- NOTE | 2023-08-26 09:12 | PC.NURSE ---
Pt's blood sugar 52 this morning, asymptomatic. Given juice and crackers, insulin held. Dr. Thomas made aware (see new orders). Recheck blood glucose 133.
--- NOTE | 2023-08-26 10:15 | HO.PM.IMPN ---
Subjective Subjective Date of Service: 08/26/23 Interval History: f/u o diabetic foot ulcer, gangrene and sepsis has no pain, no change in appearance, speaks citizen [place] creole not surinamese, some german Physical Exam Vital Signs: Vital Signs: Last Vital Signs Temp 97.7 F 08/26/23 07:31 Pulse 78 08/26/23 07:31 Resp 16 08/26/23 07:31 BP 158/69 H 08/26/23 07:31 Pulse Ox 96 08/26/23 07:31 O2 Del Method Room Air 08/26/23 07:31 BMI result Body Mass Index 31.6 Const: Other: General: AO X 3, no acute distress Resp: CTA bilateral CVS: S1,S2,RRR GI: +BS, NT, no distention Skin: left bka Neuro: motor grossly intact Psych: appropriate affect General: cooperative, healthy appearing, comfortable, no acute distress, alert and awake Nutritional Appearance: well nourished Orientation/consciousness: oriented to person, oriented to place, oriented to time and patient oriented x3 HEENT: Head: Yes normal to inspection, Yes normocephalic and Yes atraumatic Eyes: Eyelids: Yes eyelids normal Conjunctivae: conjunctivae normal Sclerae: sclerae normal Corneas: corneas normal EOM: EOMs intact bilaterally Neck: Neck: Yes normal visual inspection and Yes full ROM Carotids: no bruits Chest: Chest palpation & inspection: normal inspection of the chest Resp: Effort & Inspection: normal respiratory effort, able to speak in complete sentences and not labored Auscultation: clear to auscultation bilaterally, no crackles, no rales, no rhonchi and no wheezes Cardio: Rate: regular rate Rhythm: regular rhythm Heart sounds: S1 normal heart sound present and S2 normal heart sound present Bruits: no carotid bruits Peripheral pulses: Peripheral pulses 2+ throughout GI: Inspection: Yes normal to inspection Skin: Other: Gangrenous right 2nd toe with blistering on the plantar aspect along with the great toe deformity Wounds: no wounds Hair: normal Neuro: General: oriented to person, oriented to place, oriented to time and patient oriented x3 Cranial nerves: Yes CN's II-XII intact bilaterally and Yes Bilaterally intact EOM present Cognition (Neuro): normal cognition Motor exam (neuro): 5/5 motor strength present throughout Extrem: Other: venous exam: No significant superficial varicosities or spider telangiectasias, minimal edema General: No clubbing, No cyanosis and No edema Psych: Appearance: grossly normal Mental Status: mental status grossly normal Speech and movement: Normal speech and movement present Objective Data Active Medications Acetaminophen (Acetaminophen 325 Mg Tablet) 650 mg PO Q6H PRN PRN Reason: Pain, Mild (Pain Scale 1-3) Last Admin: 08/25/23 17:37 Dose: 650 mg Documented By: ADALI Amlodipine Besylate (Amlodipine Besylate 5 Mg Tablet) 5 mg PO DAILY [facility]; Protocol Last Admin: 08/26/23 08:00 Dose: 5 mg Documented By: CESAR Aspirin (Aspirin 81 Mg Tab.Chew) 81 mg PO DAILY [facility] Last Admin: 08/26/23 08:00 Dose: 81 mg Documented By: CESAR Dextrose (Dextrose 50 % 25 Gm/50 Ml Syringe) 25 gm IVPUSH Q15M PRN; Protocol PRN Reason: per Hypoglycemia Standing Ord. Glucose (Glucose Gel 15 Gm Gel..Gram.) 15 gm PO Q15M PRN; Protocol PRN Reason: per Hypoglycemia Standing Ord. Cefepime HCl 2 gm/ Sodium (Chloride) 50 mls @ 100 mls/hr IV Q12H [facility] Last Infusion: 08/26/23 07:00 Dose: Infused Documented By: CESAR Vancomycin HCl 1,000 mg/ (Sodium Chloride) 270 mls @ 270 mls/hr IV Q24H [facility] Last Infusion: 08/25/23 20:30 Dose: Infused Documented By: YESENIA Sodium Chloride (Ns) 1,000 mls @ 100 mls/hr IVCONT .Q10H [facility] Insulin Glargine (Insulin Glargine,Hum.Rec.Anlog 100 Unit/Ml 10 Ml Vial) 20 unit SUBCUT BEDTIME [facility] Insulin Human Lispro (Insulin Lispro 100 Unit/Ml 3 Ml Vial) 0 unit SUBCUT QIDACHS [facility]; Protocol Last Admin: 08/26/23 08:00 Dose: Not Given Documented By: CESAR Non-Admin Reason: No Insulin Coverage Lisinopril (Lisinopril 10 Mg Tablet) 10 mg PO DAILY [facility]; Protocol Last Admin: 08/26/23 08:00 Dose: 10 mg Documented By: CESAR Melatonin (Melatonin 3 Mg Tablet) 6 mg PO BEDTIME PRN PRN Reason: Insomnia Last Admin: 08/24/23 22:07 Dose: 6 mg Documented By: ELA Multivitamins/Vitamin C (Multivitamin Tablet) 1 tab PO DAILY [facility] Last Admin: 08/26/23 08:00 Dose: 1 tab Documented By: CESAR Ondansetron HCl (Ondansetron Hcl 4 Mg/2 Ml Vial) 4 mg IVPUSH Q8H PRN PRN Reason: Nausea and Vomiting Pharmacy Consult (Consult Rx Vancomycin Dosing) 1 each MISCELLANE DAILY PRN PRN Reason: Consult order Sodium Chloride (0.9 % Sodium Chloride Flush 3 Ml Syringe) 3 ml IVFLUSH QSHIFT [facility] Last Admin: 08/26/23 08:00 Dose: 3 ml Documented By: CESAR Labs 08/25/23 07:11 08/26/23 05:50 Labs: Laboratory Results - last 24 hr 08/25/23 08/25/23 08/25/23 11:13 16:33 19:41 Estim Creat Clear Calc Estimated GFR POC Glucose 66 268 H 224 H 08/26/23 08/26/23 08/26/23 05:50 07:26 08:32 Estim Creat Clear Calc 34.0 Estimated GFR 41 POC Glucose 52 L* 133 H Microbiology Microbiology Results: Microbiology 08/24/23 14:32 Blood Culture - Preliminary Blood - Venous No growth after 24 hours. 08/24/23 14:33 Blood Culture - Preliminary Blood - Venous No growth after 24 hours. Assessment and Plan (1) Diabetic ulcer of toe: Status: Acute (2) Cellulitis of foot, right: Status: Acute Plan This is a 72-year-old female with pertinent history of peripheral arterial disease status left BKA, essential hypertension, insulin-dependent diabetes mellitus who presents to the emergency department for evaluation of right foot toe discoloration, swelling and discharge. Sepsis due to right foot cellulitis, diabetic foot infection with wet gangrene of the 2nd toe -continue IV Cefepime, started 08/24 -Vascular will perform angiogram on monday 08/28, and likely TMA to follow -ID consult -follow cultures Peripheral arterial disease: Imaging with severe stenosis in the distal right superior femoral artery and occlusion of the distal right posterior tibial artery. -Vascular consular assessment as above Insulin-dependent diabetes mellitus, hypoglycemia this morning -reduce Lantus 48 to 20 -POC, sliding scale, diabetic diet Essential hypertension:was on norvasc and lisinopril at home, restart norvasc 5, and Lisinopril 10 Mild hyponatremia: repeat following IVF Hyperkalemia, treated with Lokelma, repeat level today Normocytic anemia, likely due to chronic inflammation: Hemoglobin above transfusion threshold Stage 3B Moderate CKD (GFR = 30-44 mL/min), pending Transaminitis: Due to sepsis, monitor LFTs, hold Lipitor Med rec completed DVT prophylaxis: Lovenox Full code Need for inpatient: IV Abx for diabetic foot gangrene with sepsis, at risk for limb loss and likely will need amputation Quality Stroke Does the patient have a stroke diagnosis?: No VTE Prior VTE?: No VTE Risk Level:: Medical - moderate - high VTE Device Contraindication: Treatment Not Indicated VTE Drug Contraindication: N/A - Med Ordered
[2023-08-26 16:00] VITALS: BP 164/73; PULSE 81; RESP 18; TEMP 36.5; O2SAT 92
--- NOTE | 2023-08-26 18:38 | HE.PHANOTE ---
Vancomycin addendum: Level after load and first dose was 7.5. Increased daily dose to 1250 mg, will recheck a new level unique
[2023-08-26 19:41] VITALS: BP 156/73; PULSE 71; RESP 16; TEMP 36.5; O2SAT 93
[2023-08-26] MEDS: Insulin Glargine,Hum.rec.anlog 100 UNIT/ML 10 ML VIAL 20 UNIT SUBCUT (20:28)
[2023-08-27 00:27] VITALS: BP 152/84; PULSE 80; RESP 18; TEMP 36.6; O2SAT 92
[2023-08-27 07:42] VITALS: BP 162/74; PULSE 75; RESP 18; TEMP 36.2; O2SAT 91
[2023-08-27 07:53] LABS: Creatinine Clr Calc Pharmacy 35.7; Estimated Glomerular Filt Rate 43
--- NOTE | 2023-08-27 10:46 | HO.PM.IMPN ---
Subjective Subjective Date of Service: 08/27/23 Interval History: f/u o diabetic foot ulcer, gangrene and sepsis no pain, no other complaint Physical Exam Vital Signs: Vital Signs: Last Vital Signs Temp 97.1 F 08/27/23 07:42 Pulse 75 08/27/23 07:42 Resp 18 08/27/23 07:42 BP 162/74 H 08/27/23 07:42 Pulse Ox 91 L 08/27/23 07:42 O2 Del Method Room Air 08/27/23 07:42 BMI result Body Mass Index 31.6 Const: Other: General: AO X 3, no acute distress Resp: CTA bilateral CVS: S1,S2,RRR GI: +BS, NT, no distention Skin: no change left bka Neuro: motor grossly intact Psych: appropriate affect Objective Data Active Medications Acetaminophen (Acetaminophen 325 Mg Tablet) 650 mg PO Q6H PRN PRN Reason: Pain, Mild (Pain Scale 1-3) Last Admin: 08/25/23 17:37 Dose: 650 mg Documented By: ADALI Amlodipine Besylate (Amlodipine Besylate 5 Mg Tablet) 5 mg PO DAILY [facility]; Protocol Last Admin: 08/27/23 08:05 Dose: 5 mg Documented By: MARY Aspirin (Aspirin 81 Mg Tab.Chew) 81 mg PO DAILY [facility] Last Admin: 08/27/23 08:05 Dose: 81 mg Documented By: MARY Dextrose (Dextrose 50 % 25 Gm/50 Ml Syringe) 25 gm IVPUSH Q15M PRN; Protocol PRN Reason: per Hypoglycemia Standing Ord. Glucose (Glucose Gel 15 Gm Gel..Gram.) 15 gm PO Q15M PRN; Protocol PRN Reason: per Hypoglycemia Standing Ord. Cefepime HCl 2 gm/ Sodium (Chloride) 50 mls @ 100 mls/hr IV Q12H [facility] Last Infusion: 08/27/23 06:56 Dose: Infused Documented By: YESENIA Sodium Chloride (Ns) 1,000 mls @ 100 mls/hr IVCONT .Q10H [facility] Vancomycin HCl 1,250 mg/ (Sodium Chloride) 250 mls @ 166.667 mls/hr IV Q24H [facility] Last Infusion: 08/26/23 22:34 Dose: Infused Documented By: YESENIA Insulin Glargine (Insulin Glargine,Hum.Rec.Anlog 100 Unit/Ml 10 Ml Vial) 20 unit SUBCUT BEDTIME [facility] Last Admin: 08/26/23 20:28 Dose: 20 unit Documented By: YESENIA Insulin Human Lispro (Insulin Lispro 100 Unit/Ml 3 Ml Vial) 0 unit SUBCUT QIDACHS [facility]; Protocol Last Admin: 08/27/23 08:02 Dose: Not Given Documented By: MARY Non-Admin Reason: No Insulin Coverage Lisinopril (Lisinopril 10 Mg Tablet) 10 mg PO DAILY [facility]; Protocol Last Admin: 08/27/23 08:05 Dose: 10 mg Documented By: MARY Melatonin (Melatonin 3 Mg Tablet) 6 mg PO BEDTIME PRN PRN Reason: Insomnia Last Admin: 08/24/23 22:07 Dose: 6 mg Documented By: ELA Multivitamins/Vitamin C (Multivitamin Tablet) 1 tab PO DAILY [facility] Last Admin: 08/27/23 08:05 Dose: 1 tab Documented By: MARY Ondansetron HCl (Ondansetron Hcl 4 Mg/2 Ml Vial) 4 mg IVPUSH Q8H PRN PRN Reason: Nausea and Vomiting Pharmacy Consult (Consult Rx Vancomycin Dosing) 1 each MISCELLANE DAILY PRN PRN Reason: Consult order Sodium Chloride (0.9 % Sodium Chloride Flush 3 Ml Syringe) 3 ml IVFLUSH QSHIFT [facility] Last Admin: 08/27/23 08:05 Dose: 3 ml Documented By: MARY Labs 08/25/23 07:11 08/27/23 06:03 Labs: Laboratory Results - last 24 hr 08/26/23 08/26/23 08/26/23 11:31 14:00 16:34 Estim Creat Clear Calc Estimated GFR POC Glucose 150 H 281 H Urine Osmolality 368 L Ur Random Sodium 22.0 Random Vancomycin 08/26/23 08/26/23 08/27/23 18:01 20:02 06:03 Estim Creat Clear Calc 35.7 Estimated GFR 43 POC Glucose 269 H Urine Osmolality Ur Random Sodium Random Vancomycin 7.5 L 08/27/23 07:40 Estim Creat Clear Calc Estimated GFR POC Glucose 103 Urine Osmolality Ur Random Sodium Random Vancomycin Microbiology Microbiology Results: Microbiology 08/24/23 14:32 Blood Culture - Preliminary Blood - Venous No growth after 48 hours. 08/24/23 14:33 Blood Culture - Preliminary Blood - Venous No growth after 48 hours. Assessment and Plan (1) Diabetic ulcer of toe: Status: Acute (2) Cellulitis of foot, right: Status: Acute Plan This is a 72-year-old female with pertinent history of peripheral arterial disease status left BKA, essential hypertension, insulin-dependent diabetes mellitus who presents to the emergency department for evaluation of right foot toe discoloration, swelling and discharge. Sepsis due to right foot cellulitis, diabetic foot infection with wet gangrene of the 2nd toe -continue IV Cefepime, started 08/24 -Vascular will perform angiogram on monday 08/28, and likely TMA to follow -follow cultures Peripheral arterial disease: Imaging with severe stenosis in the distal right superior femoral artery and occlusion of the distal right posterior tibial artery. -Vascular consular assessment as above Insulin-dependent diabetes mellitus, hypoglycemia this morning -reduced Lantus 48 to 20 d/t hypoglycemia in am 08/26 -POC, sliding scale, diabetic diet HTN, on norvasc and lisinopril at home not listed on med rec. Continue Norvasc increase to 10, continue lisinopril 10 and if needed increase to 20 Mild hyponatremia: repeat following IVF Hyperkalemia, treated with Lokelma, repeat level today Normocytic anemia, likely due to chronic inflammation: Hemoglobin above transfusion threshold Stage 3B Moderate CKD (GFR = 30-44 mL/min), pending Transaminitis: Due to sepsis, monitor LFTs, hold Lipitor Med rec completed (pt on lisinopril and Norvasc at home not listed on med ) DVT prophylaxis: Lovenox Full code Need for inpatient: IV Abx for diabetic foot gangrene with sepsis, at risk for limb loss and likely will need amputation Quality Stroke Does the patient have a stroke diagnosis?: No VTE Prior VTE?: No VTE Risk Level:: Medical - moderate - high VTE Device Contraindication: Treatment Not Indicated VTE Drug Contraindication: N/A - Med Ordered
[2023-08-27 11:11] LABS: Anion Gap 12 (12-20)
[2023-08-27 11:14] LABS: Blood Urea Nitrogen 24 mg/dL (9-16); Calcium 8.8 mg/dL (8.4-10.2); Carbon Dioxide 22 mmol/L (22-29); Chloride 102 mmol/L (96-108); Glucose Random 105 mg/dL (60-115); Potassium 4.6 mmol/L (3.3-5.1); Sodium 131 mmol/L (135-145)
[2023-08-27 16:00] VITALS: BP 160/79; PULSE 78; RESP 20; TEMP 37; O2SAT 94
--- NOTE | 2023-08-27 18:49 | HE.PHANOTE ---
Vancomycin addendum: Today level came back at 13.2 will keep same dose and regimen, predicted AUC of 484, will recheck level after 2 more doses
[2023-08-27 19:30] VITALS: BP 157/80; PULSE 72; RESP 18; TEMP 36.7; O2SAT 93
[2023-08-28] VITALS (12 sets, daily range): BP systolic 141–179; BP diastolic 71–84; PULSE 72–78; RESP 16–23; TEMP 36–36.5; O2SAT 90–96
[2023-08-28 07:32] LABS: Creatinine Clr Calc Pharmacy 34.3; Estimated Glomerular Filt Rate 41
--- NOTE | 2023-08-28 07:47 | HE.PHANOTE ---
RE: Vanco Continuing current 1,250mg Q24H dose. SCr increased from 1.22 to 1.27, next vanco level due on 08/29/23 @ 1800. Predicted AUC is 501.
--- NOTE | 2023-08-28 10:23 | HO.PM.IMPN ---
Subjective Subjective Date of Service: 08/28/23 Interval History: f/u o diabetic foot ulcer, gangrene and sepsis no pain, no new complaints Physical Exam Vital Signs: Vital Signs: Last Vital Signs Temp 97.2 F 08/28/23 08:00 Pulse 73 08/28/23 08:00 Resp 18 08/28/23 08:00 BP 162/71 H 08/28/23 08:00 Pulse Ox 90 L 08/28/23 08:00 O2 Del Method Room Air 08/28/23 08:00 BMI result Body Mass Index 31.6 Const: Other: General: AO X 3, no acute distress Resp: CTA bilateral CVS: S1,S2,RRR GI: +BS, NT, no distention Skin: no change left bka Neuro: motor grossly intact Psych: appropriate affect Objective Data Active Medications Acetaminophen (Acetaminophen 325 Mg Tablet) 650 mg PO Q6H PRN PRN Reason: Pain, Mild (Pain Scale 1-3) Last Admin: 08/25/23 17:37 Dose: 650 mg Documented By: ADALI Amlodipine Besylate (Amlodipine Besylate 10 Mg Tablet) 10 mg PO DAILY [facility]; Protocol Last Admin: 08/28/23 08:35 Dose: 10 mg Documented By: MATT Aspirin (Aspirin 81 Mg Tab.Chew) 81 mg PO DAILY [facility] Last Admin: 08/28/23 08:35 Dose: 81 mg Documented By: MATT Dextrose (Dextrose 50 % 25 Gm/50 Ml Syringe) 25 gm IVPUSH Q15M PRN; Protocol PRN Reason: per Hypoglycemia Standing Ord. Glucose (Glucose Gel 15 Gm Gel..Gram.) 15 gm PO Q15M PRN; Protocol PRN Reason: per Hypoglycemia Standing Ord. Cefepime HCl 2 gm/ Sodium (Chloride) 50 mls @ 100 mls/hr IV Q12H [facility] Last Infusion: 08/28/23 06:14 Dose: Infused Documented By: ROBYN Sodium Chloride (Ns) 1,000 mls @ 100 mls/hr IVCONT .Q10H [facility] Last Admin: 08/28/23 08:37 Dose: 100 mls/hr Documented By: MATT Vancomycin HCl 1,250 mg/ (Sodium Chloride) 250 mls @ 166.667 mls/hr IV Q24H [facility] Last Infusion: 08/27/23 21:23 Dose: Infused Documented By: ROBYN Insulin Glargine (Insulin Glargine,Hum.Rec.Anlog 100 Unit/Ml 10 Ml Vial) 20 unit SUBCUT BEDTIME [facility] Last Admin: 08/27/23 20:44 Dose: 20 unit Documented By: ROBYN Insulin Human Lispro (Insulin Lispro 100 Unit/Ml 3 Ml Vial) 0 unit SUBCUT QIDACHS [facility]; Protocol Last Admin: 08/28/23 08:30 Dose: Not Given Documented By: MATT Non-Admin Reason: No Insulin Coverage Lisinopril (Lisinopril 10 Mg Tablet) 10 mg PO DAILY [facility]; Protocol Last Admin: 08/28/23 08:35 Dose: 10 mg Documented By: MATT Melatonin (Melatonin 3 Mg Tablet) 6 mg PO BEDTIME PRN PRN Reason: Insomnia Last Admin: 08/24/23 22:07 Dose: 6 mg Documented By: ELA Multivitamins/Vitamin C (Multivitamin Tablet) 1 tab PO DAILY [facility] Last Admin: 08/28/23 08:35 Dose: 1 tab Documented By: MATT Ondansetron HCl (Ondansetron Hcl 4 Mg/2 Ml Vial) 4 mg IVPUSH Q8H PRN PRN Reason: Nausea and Vomiting Pharmacy Consult (Consult Rx Vancomycin Dosing) 1 each MISCELLANE DAILY PRN PRN Reason: Consult order Sodium Chloride (0.9 % Sodium Chloride Flush 3 Ml Syringe) 3 ml IVFLUSH QSHIFT [facility] Last Admin: 08/28/23 08:35 Dose: 3 ml Documented By: MATT Labs 08/25/23 07:11 08/28/23 05:55 Labs: Laboratory Results - last 24 hr 08/27/23 08/27/23 08/27/23 06:03 11:31 16:07 Hold Purple Top Anion Gap 12 Estim Creat Clear Calc 35.7 Estimated GFR 43 POC Glucose 160 H 136 H Random Glucose 105 Calcium 8.8 Random Vancomycin 08/27/23 08/27/23 08/27/23 16:22 18:03 19:29 Hold Purple Top Anion Gap Estim Creat Clear Calc Estimated GFR POC Glucose 129 H 140 H Random Glucose Calcium Random Vancomycin 13.2 L 08/28/23 08/28/23 05:55 08:00 Hold Purple Top SEE NOTE Anion Gap Estim Creat Clear Calc 34.3 Estimated GFR 41 POC Glucose 113 Random Glucose Calcium Random Vancomycin Assessment and Plan (1) Diabetic ulcer of toe: Status: Acute (2) Cellulitis of foot, right: Status: Acute Plan This is a 72-year-old female with pertinent history of peripheral arterial disease status left BKA, essential hypertension, insulin-dependent diabetes mellitus who presents to the emergency department for evaluation of right foot toe discoloration, swelling and discharge. Sepsis due to right foot cellulitis, diabetic foot infection with wet gangrene of the 2nd toe -continue IV Cefepime, started 08/24 -Vascular will perform angiogram on monday 08/28, and likely TMA to follow -follow cultures Peripheral arterial disease: Imaging with severe stenosis in the distal right superior femoral artery and occlusion of the distal right posterior tibial artery. -Vascular consular assessment as above Insulin-dependent diabetes mellitus, hypoglycemia this morning -reduced Lantus 48 to 20 d/t hypoglycemia in am 08/26 -POC, sliding scale, diabetic diet, FBS 113 HTN, on norvasc and lisinopril at home not listed on med rec. Continue Norvasc increase to 10, continue lisinopril 10 and if needed increase to 20 Mild hyponatremia: repeat following IVF Hyperkalemia, treated with Lokelma, repeat level today Normocytic anemia, likely due to chronic inflammation: Hemoglobin above transfusion threshold Stage 3B Moderate CKD (GFR = 30-44 mL/min), pending Transaminitis: Due to sepsis, monitor LFTs, hold Lipitor Med rec completed (pt on lisinopril and Norvasc at home not listed on med ) DVT prophylaxis: Lovenox Full code Need for inpatient: IV Abx for diabetic foot gangrene with sepsis, at risk for limb loss and likely will need amputation Quality Stroke Does the patient have a stroke diagnosis?: No VTE Prior VTE?: No VTE Risk Level:: Medical - moderate - high VTE Device Contraindication: Treatment Not Indicated VTE Drug Contraindication: N/A - Med Ordered
--- NOTE | 2023-08-28 11:34 | MHC.CM.PN ---
EMR reviewed. Per MD rounds patient is not medically cleared for dc, awaiting vascular intervention. CM will continue to follow for dc needs.
--- NOTE | 2023-08-28 13:07 | MHC.CLN ---
NUTRITION CONSULT FOR POOR PO. CURRENTLY NPO FOR PROCEDURE. PRIOR DIET=CARDIAC WITH PO PER DOC 75-100%. MONITOR FOR DIET ADVANCEMENT.
--- NOTE | 2023-08-28 13:32 | W.PM.OPN ---
Operative Note Operative Note Date of Service: 08/28/23 Narrative: Angiogram report from [facility] Preoperative diagnosis: Atherosclerosis of Right lower extremity with nonhealing ulcer Postoperative diagnosis: Same Procedure: 1. Ultrasound-guided left common femoral access 2. Aortogram with right lower extremity runoff 3. right peroneal plasty 4. right SFA plasty Surgeon:James Puentes M.D., FACS, RPVI Post Production Assistant:None Anesthesia: Local with moderate conscious sedation. Total intraservice moderate sedation time was 63 minutes. I monitored the patient's level of consciousness and physiologic status continuously throughout the procedure. Specimens:none Drains:none Estimated blood loss: Less than 10 ml Implant: Medtronic Impact DCB 6 x 40 Indications: 72-year-old Creole female presents for evaluation regarding gangrenous right lower extremity. She had noninvasive testing concerning for vascular disease. She now presents for endovascular intervention. Consent was obtained with daughter on telephone as she is Creole The patient has signed the informed consent after reviewing risks, complications, benefits, and alternatives previously discussed with the patient. The patient was given the opportunity to ask any additional questions or voice any concerns. All questions were answered to the patient's satisfaction. Procedure in detail: Patient was brought to the angiography suite prior to which a time-out was called for patient identification and site verification. Bilateral groins were prepped and draped in the standard surgical fashion. Under ultrasound guidance left common femoral was punctured with micro puncture needle and wire. Subsequently a precision 4 Nepalese sheath was then placed. Bentson wire was advanced to the level of the aorta. 4 Nepalese Flush catheter was brought up and parked at the level of the renal arteries. Aortogram was then undertaken. Catheter was brought down to the level of the iliac bifurcation. Iliacs were subsequently imaged. Catheter was then brought in up and over to the right side SFA. Runoff study was then undertaken. at this time disease was noted. 5000 units of systemic heparin was administered. Up and over 6 Nepalese sheath was then placed. Glidewire Advantage was brought down into the prone heel artery. We exchanged out for an 014 wire. We did confirmed true lumen with a catheter instilled with contrast. Once this was accomplished with plasty this area with a 2.5 by 80 balloon. Multiple subsequent insufflations were required. Once this was all accomplished we brought it back to the SFA. We exchanged out for an 035 advantage will wire. Once this was accomplished we plasty did the stenotic area in [place] with a regular 6 x 4 balloon. Subsequent to that we plasty this area with a 6 x 40 drug coated balloon. This was brought in and under 3 minutes and insufflated for a total of 3 minutes in duration. Once this was accomplished good result was obtained. Catheter wire sheath was brought back to the ipsilateral side. StarClose closure device was deployed. Patient tolerated the procedure well. Returned to recovery with stable vitals. Interpretation of films: 1. Ultrasound demonstrates appropriate femoral puncture. Image of which was saved. 2. Aortogram demonstrates appropriate caliber aorta. Minimal disease. Appropriate take-off of the renals. 3. Iliac images demonstrate No significant disease 4. right Leg Common femoral artery: no significant disease Profundus Femoris: No significant disease Superficial femoral artery: moderate stenosis at [place] focal. Immediate reconstitution Popliteal artery (p1,p2,p3): no significant disease Anterior tibial artery: occludes proximal 3rd Peroneal artery: patent to the foot Posterior tibial artery: at occludes proximal 3rd Dorsalis pedis/plantar arch: incomplete Conclusion: 1. successful plasty peroneal and SFA of the right side 2. Anticoagulation status: will require 6 months of aspirin and Plavix This note is constructed using voice recognition software. While every effort has been made to ensure accuracy, drug abuse technician errors may have been included. Thank you for allowing me to participate in the care of your patient. Yours sincerely, James Puentes MD, FACS, R.P.V.I.
--- NOTE | 2023-08-28 15:44 | PC.NURSE ---
MD Thomas aware pts BP continues to be elevated last BP 172/79, no new orders at this time.
[2023-08-28 16:19] LABS: Glucose, Whole Blood 139 mg/dL (60-115)
[2023-08-28] MEDS: 0.9 % Sodium Chloride Flush 3 ML SYRINGE IVFLUSH (17:02)
--- NOTE | 2023-08-28 18:06 | PC.NURSE ---
MD Puentes and MD Thomas made aware pt had small amount of blood found under her sheets mixed with urine. Pt states she feels weak, VS as follows: 97.0, 72, 179/74, 94% RA. No bleeding noted at left groin site upon assessment, site feels soft, small egg size hematoma noted which is consistent with PACU report from earlier. No new orders at this time.
[2023-08-28 20:06] LABS: Hematocrit 23.5 % (37.0-47.0); Hemoglobin 7.4 g/dl (12.0-16.0); Mean Corpuscular HGB Conc 31.5 g/dl (31.0-35.0); Mean Corpuscular Hemoglobin 25.4 pg (27.0-33.0); Mean Corpuscular Volume 80.8 fL (80.0-98.0); Mean Platelet Volume 9.7 fL (9.4-12.3); Platelet Count 367 X10*3/uL (160-400); Red Blood Count 2.91 X10*6/uL (4.20-5.50); Red Cell Distribution Width 14.2 % (11.0-16.0); White Blood Count 12.6 X10*3/uL (4.8-10.8)
[2023-08-28] MEDS: vancomycin HCL 1,250 MG in 0.9 % Sodium Chloride 250 ML 166.67 MG IV (20:30)
[2023-08-28 21:14] LABS: Glucose, Whole Blood 214 mg/dL (60-115)
[2023-08-28] MEDS: Insulin Glargine,Hum.rec.anlog 100 UNIT/ML 10 ML VIAL 20 UNIT SUBCUT (21:31)
[2023-08-28] MEDS: Insulin Lispro 100 UNIT/ML 3 ML VIAL SUBCUT (21:31)
[2023-08-28] MEDS: Melatonin 3 MG TABLET 6 MG PO (22:42)
[2023-08-29] VITALS (12 sets, daily range): BP systolic 148–181; BP diastolic 67–84; PULSE 60–76; RESP 16–18; TEMP 36.1–36.9; O2SAT 89–97
--- NOTE | 2023-08-29 00:07 | PM.EVENT ---
Event Note Date of Service: 08/29/23 Event Note: Mrs. Florian refused to recieve blood transfusion and did not give consent for it despite explaining the benefits. We will recheck her Hgb in am. Time Spent With Patient Time: Total time managing care of this patient today ____ minutes.
[2023-08-29] MEDS: 0.9 % Sodium Chloride Flush 3 ML SYRINGE IVFLUSH ×4 (00:23→23:04)
--- NOTE | 2023-08-29 00:55 | PC.NURSE ---
Patient speaks Urdu-Creole language. Portable voice portfolio management marketing used to communicate. Patient refused blood transfusion, hospitalist was at bedside speaking to the patient.
[2023-08-29 07:37] LABS: Hematocrit 23.7 % (37.0-47.0); Hemoglobin 7.2 g/dl (12.0-16.0); Mean Corpuscular HGB Conc 30.4 g/dl (31.0-35.0); Mean Corpuscular Hemoglobin 24.9 pg (27.0-33.0); Platelet Count 372 X10*3/uL (160-400); Red Blood Count 2.89 X10*6/uL (4.20-5.50); Red Cell Distribution Width 14.3 % (11.0-16.0); White Blood Count 11.6 X10*3/uL (4.8-10.8)
[2023-08-29 07:41] LABS: Glucose, Whole Blood 99 mg/dL (60-115)
[2023-08-29 07:50] LABS: Anion Gap 13 (12-20); Blood Urea Nitrogen 25 mg/dL (9-16); Calcium 8.7 mg/dL (8.4-10.2); Carbon Dioxide 22 mmol/L (22-29); Chloride 103 mmol/L (96-108); Creatinine Clr Calc Pharmacy 31.5; Estimated Glomerular Filt Rate 38; Glucose Random 94 mg/dL (60-115); Potassium 5.5 mmol/L (3.3-5.1); Sodium 132 mmol/L (135-145)
[2023-08-29] MEDS: Famotidine 20 MG TABLET PO (08:28)
[2023-08-29] MEDS: Aspirin 81 MG TAB.CHEW PO (08:28)
[2023-08-29] MEDS: amLODIPine Besylate 10 MG TABLET PO (08:28)
[2023-08-29] MEDS: Clopidogrel Bisulfate 75 MG TABLET PO (08:28)
[2023-08-29] MEDS: Multivitamin TABLET 1 TAB PO (08:28)
[2023-08-29] MEDS: lisinopriL 10 MG TABLET PO (08:28)
[2023-08-29 11:17] LABS: Glucose, Whole Blood 106 mg/dL (60-115)
--- NOTE | 2023-08-29 13:32 | HO.PM.IMPN ---
Subjective Subjective Date of Service: 08/30/23 Interval History: f/u o diabetic foot ulcer, gangrene and sepsis Review of Systems no pain, no new complaints Physical Exam Vital Signs: Vital Signs: Last Vital Signs Temp 98.4 F 08/29/23 07:30 Pulse 62 08/29/23 07:30 Resp 16 08/29/23 07:30 BP 159/70 H 08/29/23 07:30 Pulse Ox 97 08/29/23 07:30 O2 Del Method Room Air 08/29/23 07:30 O2 Flow Rate 2 08/28/23 15:25 BMI result Body Mass Index 31.6 General: AO X 3, no acute distress Resp: CTA bilateral CVS: S1,S2,RRR GI: +BS, NT, no distention,bs present. Skin: no change right foot area seems similar-please see pic. Objective Data Active Medications Acetaminophen (Acetaminophen 325 Mg Tablet) 650 mg PO Q6H PRN PRN Reason: Pain, Mild (Pain Scale 1-3) Last Admin: 08/25/23 17:37 Dose: 650 mg Documented By: ADALI Amlodipine Besylate (Amlodipine Besylate 10 Mg Tablet) 10 mg PO DAILY [facility]; Protocol Last Admin: 08/29/23 08:28 Dose: 10 mg Documented By: MATT Aspirin (Aspirin 81 Mg Tab.Chew) 81 mg PO DAILY [facility] Last Admin: 08/29/23 08:28 Dose: 81 mg Documented By: MATT Clopidogrel Bisulfate (Clopidogrel Bisulfate 75 Mg Tablet) 75 mg PO DAILY [facility] Last Admin: 08/29/23 08:28 Dose: 75 mg Documented By: MATT Dextrose (Dextrose 50 % 25 Gm/50 Ml Syringe) 25 gm IVPUSH Q15M PRN; Protocol PRN Reason: per Hypoglycemia Standing Ord. Docusate Sodium (Docusate Sodium 100 Mg Capsule) 100 mg PO BEDTIME [facility] Famotidine (Famotidine 20 Mg Tablet) 20 mg PO DAILY [facility] Last Admin: 08/29/23 08:28 Dose: 20 mg Documented By: MATT Glucose (Glucose Gel 15 Gm Gel..Gram.) 15 gm PO Q15M PRN; Protocol PRN Reason: per Hypoglycemia Standing Ord. Hydralazine HCl (Hydralazine Hcl 20 Mg/Ml Vial) 5 mg IVPUSH Q6H PRN; Protocol PRN Reason: SBP>180 Cefepime HCl 2 gm/ Sodium (Chloride) 50 mls @ 100 mls/hr IV Q12H [facility] Last Infusion: 08/29/23 06:29 Dose: Infused Documented By: KEVAN Vancomycin HCl 1,250 mg/ (Sodium Chloride) 250 mls @ 166.667 mls/hr IV Q24H [facility] Last Infusion: 08/28/23 22:11 Dose: Infused Documented By: JOHNNY Insulin Glargine (Insulin Glargine,Hum.Rec.Anlog 100 Unit/Ml 10 Ml Vial) 20 unit SUBCUT BEDTIME [facility] Last Admin: 08/28/23 21:31 Dose: 20 unit Documented By: JOHNNY Insulin Human Lispro (Insulin Lispro 100 Unit/Ml 3 Ml Vial) 0 unit SUBCUT QIDACHS [facility]; Protocol Last Admin: 08/29/23 12:34 Dose: Not Given Documented By: MATT Non-Admin Reason: No Insulin Coverage Lisinopril (Lisinopril 10 Mg Tablet) 10 mg PO DAILY [facility]; Protocol Last Admin: 08/29/23 08:28 Dose: 10 mg Documented By: MATT Melatonin (Melatonin 3 Mg Tablet) 6 mg PO BEDTIME PRN PRN Reason: Insomnia Last Admin: 08/28/23 22:42 Dose: 6 mg Documented By: JOHNNY Morphine Sulfate (Morphine Sulfate 4 Mg/Ml Cartridge) 4 mg IVPUSH Q2H PRN; Protocol PRN Reason: Pain, Severe (Pain Scale 7-10) Multivitamins/Vitamin C (Multivitamin Tablet) 1 tab PO DAILY [facility] Last Admin: 08/29/23 08:28 Dose: 1 tab Documented By: MATT Ondansetron HCl (Ondansetron Hcl 4 Mg/2 Ml Vial) 4 mg IVPUSH Q8H PRN PRN Reason: Nausea and Vomiting Oxycodone HCl (Oxycodone Hcl Immed Release 5 Mg Tablet) 5 mg PO Q4H PRN PRN Reason: Pain, Moderate(Pain Scale 4-6) Pharmacy Consult (Consult Rx Vancomycin Dosing) 1 each MISCELLANE DAILY PRN PRN Reason: Consult order Polyethylene Glycol (Polyethylene Glycol 3350 17 Gm Powd.Pack) 17 gm PO DAILY [facility] Sodium Chloride (0.9 % Sodium Chloride Flush 3 Ml Syringe) 3 ml IVFLUSH QSHIFT [facility] Last Admin: 08/29/23 08:28 Dose: 3 ml Documented By: MATT Labs 08/30/23 09:56 08/30/23 05:31 Labs: Laboratory Results - last 24 hr 08/28/23 08/28/23 08/28/23 16:14 19:49 21:08 MCV 80.8 MCH 25.4 L MCHC 31.5 RDW 14.2 Plt Count 367 MPV 9.7 Absolute Nucleated RBC 0.000 Nucleated RBC % (auto) 0.0 Anion Gap Estim Creat Clear Calc Estimated GFR POC Glucose 139 H 214 H Random Glucose Calcium Blood Type Antibody Screen Crossmatch 08/28/23 08/29/23 08/29/23 22:28 05:54 07:29 MCV 82.0 MCH 24.9 L MCHC 30.4 L RDW 14.3 Plt Count 372 MPV 10.0 Absolute Nucleated RBC 0.000 Nucleated RBC % (auto) 0.0 Anion Gap 13 Estim Creat Clear Calc 31.5 Estimated GFR 38 POC Glucose 99 Random Glucose 94 Calcium 8.7 Blood Type O Positive Antibody Screen NEGATIVE Crossmatch See Detail 08/29/23 11:13 MCV MCH MCHC RDW Plt Count MPV Absolute Nucleated RBC Nucleated RBC % (auto) Anion Gap Estim Creat Clear Calc Estimated GFR POC Glucose 106 Random Glucose Calcium Blood Type Antibody Screen Crossmatch Assessment and Plan (1) Diabetic ulcer of toe: Status: Acute (2) Cellulitis of foot, right: Status: Acute Plan 72-year-old female with pertinent history of peripheral arterial disease status left BKA, essential hypertension, insulin-dependent diabetes mellitus who presents to the emergency department for evaluation of right foot toe discoloration, swelling and discharge. Sepsis due to right foot cellulitis, diabetic foot infection with wet gangrene of the 2nd toe -continue IV Cefepime, started 08/24 -Vascular will perform angiogram on monday 08/28, and likely TMA to follow -follow cultures Peripheral arterial disease: Imaging with severe stenosis in the distal right superior femoral artery and occlusion of the distal right posterior tibial artery. Vascular consular s/p angio: s/p right peroneal plasty,sfa plasty. vascular follow up. Insulin-dependent diabetes mellitus,fs 100-200 -POC, sliding scale, diabetic diet HTN, on norvasc and lisinopril at home not listed on med rec. Continue Norvasc increase to 10, continue lisinopril 10 and if needed increase to 20 Mild hyponatremia: repeat following IVF Hyperkalemia, treated with Lokelma, repeat level today Normocytic anemia, likely due to chronic inflammation: Hemoglobin above transfusion threshold Ckd 3 : cr similar Transaminitis: Due to sepsis, monitor LFTs, hold Lipitor Med rec completed (pt on lisinopril and Norvasc at home not listed on med ) DVT prophylaxis: Lovenox. Need for inpatient: IV Abx for diabetic foot gangrene with sepsis, at risk for limb loss and likely will need amputation Quality Stroke Does the patient have a stroke diagnosis?: No VTE Prior VTE?: No VTE Risk Level:: Medical - moderate - high VTE Device Contraindication: Treatment Not Indicated VTE Drug Contraindication: N/A - Med Ordered
[2023-08-29] MEDS: polyethylene glycoL 3350 17 GM POWD.PACK PO (14:47)
--- NOTE | 2023-08-29 15:57 | PC.NURSE ---
Addendum entered by Jocelyne Lopez RN 08/29/23 18:39: Pt currently 91% on room air. Last BP 181/82, MD Manzanares ordered Coreg, scheduled for 2100, instructed to give dose early. asked if ok to start blood with elevated BP, instructed to recheck BP after Coreg given to check for effectiveness. IV abx currently infusing. Original Note: MD Manzanares made aware this AM that pt needs stool softener due to constipation and that BP continues to be elevated. At 1512 notified via tiger text that Pt o2 is low, 88-90% on room air and that BP continues to elevated at 178/84. New orders for Neb and incentive spirometer placed. Pt educated on use of Incentive spirometer, pt able to do a few repetitions up to 500. Pt was placed on 1L o2 saturating 94% notified. Son at bedside at this time and states he is concerned about her elevated BP's, was able to speak with son at the bedside regarding this issue. Izabela from pt experience at bedside and was able to speak with family.
[2023-08-29 16:04] LABS: Glucose, Whole Blood 202 mg/dL (60-115)
--- NOTE | 2023-08-29 16:23 | HO.WOUND ---
Wound Consult: Follow up 72yr old female admitted to [facility] on? 08/24/23 19:48- See progress notes and H&P for detailed history. Arrival to bedside pt and son were present agreeable to consulation and dressing change. Pt and son are able to recall my role in her care. Her son Deandre reports they have alot of questions - I attempted to answer some of the questions but directed them to seek answers from the providers. The patients son was tearful and did not express his concerns, supportive listening and time was provided to the patient and her son. From original wound consult: Wound consult placed for right foot arterial wound scheduled for Amputation with Dr. Puentes once OR scheduling allows. Arrival to bedside pt and son are agreeable to assessment - son reports she speaks kreol and he provided interpretation throughout visit - denies bio medical technician. Pt reports she has had the wounds for some time and soaks the foot but does not provide any other topical care at home consistently. No new photos at todays assessment. Right Great and 2nd toe Etiology: ??Arterial Wound Wound Bed: necrotic firm brittle toe - moist drainage at base of toe with extending wound observed to plantar. fluctuant to plantar area and able to express foul smelling creamy quintanilla drainage. Lateral side to great toe with necrotic wound and dry lifting callused edges. Drainage / Odor: Foul creamy drainage Edges: ? Irregular and nonadeherent Elle wound: ?Hyperpigmentation dry tissue on dorsal side of foot. Plantar wound with intact thick epidermal covering in place - Fluctuance noted under intact tissue Pain: Pt reports neuropathy Goals of Treatment: ? Plan is for OR defer to Dr. Puentes - Topical treatment to keep dry and clean with betadine and aliginate No new topical treatments needed at this time. Recommendations: 1. Right Foot - Elevate foot off of bed surface. Cleanse with Betadine allow to dry. To plantar wound apply single layer Alginate (DurafiberAG), cover wound and toe with ABD pad, and gauze wrap. Change Daily. Goal is to keep wound dry - do not apply topical dressing that will add moisture to wounds. Maintain blood glucose levels per Providers orders. Re-consult wound care Nurse for wound deterioration or wound changes.
[2023-08-29] MEDS: Insulin Lispro 100 UNIT/ML 3 ML VIAL SUBCUT ×2 (16:46→20:20)
[2023-08-29] MEDS: carvediloL 3.125 MG TABLET PO (18:10)
[2023-08-29 19:04] LABS: Vancomycin Trough 21.3 mcg/mL (10.0-20.0)
--- NOTE | 2023-08-29 19:22 | HE.PHANOTE ---
VANCO DOSE ADJUSTMENT BASED ON SCR AND TROUGH OF 21.3 DOSE HELD UNTIL AM OF 08/30. NEXT LEVEL ON 09/01 @ 0600
[2023-08-29 20:07] LABS: Glucose, Whole Blood 166 mg/dL (60-115)
[2023-08-29] MEDS: Sodium Zirconium Cyclosilicate 5 GM POWD.PACK PO (20:19)
[2023-08-29] MEDS: Insulin Glargine,Hum.rec.anlog 100 UNIT/ML 10 ML VIAL 20 UNIT SUBCUT (20:20)
[2023-08-29] MEDS: Docusate Sodium 100 MG CAPSULE PO (20:22)
[2023-08-29] MEDS: Albuterol/Iprat 2.5/0.5MG 3 ML AMPUL.NEB INHALE (20:51)
--- NOTE | 2023-08-29 22:23 | PC.NURSE ---
Pt is refusing blood again, she signed the consent earlier today, I went in to take her vitals and explain that we were going to start the blood soon and she said no. I was able to get the ipad surgical appliances salesperson on the phone with the language [place] and explained to pt that she needed blood and pt still refused. Dr. Jaylen Dickerson is aware.
[2023-08-30] VITALS (8 sets, daily range): BP systolic 143–186; BP diastolic 60–87; PULSE 64–75; RESP 14–26; TEMP 35.5–36.6; O2SAT 91–96
[2023-08-30] MEDS: Furosemide 20 MG/2 ML VIAL IVPUSH ×2 (01:15→17:07)
--- NOTE | 2023-08-30 03:18 | PC.NURSE ---
08/29: Med-surg pt seen on s3. Assumed care at 19:15. Patient spo2 noted to be 87% on RA on evening vitals. Pt briefly placed on 1L nc with improvement to 92% and covering Dr. Dewitt notified. Ipad pigment presser used to communicate with patient in her [place] language [place]. Pt's son arrived and was also present for some of the assessment, included in plan of care discussion. On assessment pt stated I feel weak, tired . Pt denied dizziness, sob, and chest pain. Denies pain. Breathing observed even and unlabored without distress. RN explained medications, plan of care, and blood transfusion, clarified if the patient was still agreeable with blood transfusion which she stated she was and acknowledged that she had signed the consent earlier in the day. Per report, transfusion had been held earlier for HTN. Pt was also educated on and agreeable to lokelma for K 5.5 earlier today, given. When kiln charger went in to obtain vitals prior to obtaining blood the pt stated she no longer wanted the transfusion. Covering Dr. Dewitt and Dr. Jaylen Dickerson notified. Dr. Jaylen Dickerson presented to pt's bedside with RN. Concerns and assessment findings discussed with MD. Spo2 re-check showed 93% on RA. CXR ordered and obtained showing small pleural effusions and pulmonary vascular congestion per report. Transfusion deferred by MD per pt request. IV lasix 20mg ordered and given and purewick placed. IS encouraged and assisted with though pt has very poor technique, achieves only 500. RT foot ulcer has c/d/i DSD. No drainage noted. Assisted with repositioning. Continues on abx as ordered. Bed alarm on and safety measures in place. See EMAR and shift assessment for full details.
--- NOTE | 2023-08-30 04:44 | PM.EVENT ---
Event Note Date of Service: 08/30/23 Event Note: I was contacted by nursing to speak with Belkys as she is not refusing her blood transfusion again. I spoke with her and she does not want to get the blood transfusion because she does not feel well. She has mild shortness of breath upon laying flat and generalized weakness. Lungs auscultation showed decreased breath sounds and fine crackles mid-lungs davis. CXR was obtained and showed bilateral small pleural effusion and vascular congestion. Therapy with low dose Lasix (20 mg) IV was given. I discussed with patient the findings on the CXR and the reason Lasix was ordered. She understood and agreed. We will hold PRBCs transfusion for now as patient is refusing it. Time Spent With Patient Time: Total time managing care of this patient today ____ minutes.
[2023-08-30 06:30] LABS: Anion Gap 15 (12-20); Blood Urea Nitrogen 27 mg/dL (9-16); Calcium 8.9 mg/dL (8.4-10.2); Carbon Dioxide 20 mmol/L (22-29); Chloride 100 mmol/L (96-108); Creatinine Clr Calc Pharmacy 28.8; Estimated Glomerular Filt Rate 34; Glucose Random 77 mg/dL (60-115); Hemoglobin 7.2 g/dl (12.0-16.0); Mean Corpuscular HGB Conc 31.3 g/dl (31.0-35.0); Mean Corpuscular Hemoglobin 25.3 pg (27.0-33.0); Mean Corpuscular Volume 80.7 fL (80.0-98.0); Mean Platelet Volume 9.8 fL (9.4-12.3); Platelet Count 388 X10*3/uL (160-400); Potassium 5.4 mmol/L (3.3-5.1); Red Blood Count 2.85 X10*6/uL (4.20-5.50); Red Cell Distribution Width 14.3 % (11.0-16.0); Sodium 130 mmol/L (135-145); White Blood Count 10.6 X10*3/uL (4.8-10.8)
--- NOTE | 2023-08-30 07:00 | CA_ITS ---
Transthoracic Echocardiogram Patient (Last, First, Middle): Belkys Florian, Gender: Female Date of : 1950 Age: 72 Procedure Date: 08/30/2023 Procedure Type: Transthoracic Echocardiogram Location: S3E Height: 149.86 cm Weight: 70.76 kg BSA: 1.66 m2 Heart Rate: 61 bpm BP: 144 / 70 mmHg Refresh Technician: ANDIE Ignacio MD: Hunter Manzanares MD Cost Control Analyst: Yeison Green MD Symptoms: ?chf Study Quality: Adequate w contrast ECG Rhythm: Paced Conclusions: - 1. Moderately reduced LV ejection fraction 35-40% with grade 3 diastolic dysfunction 2. At least mildly dilated left atrium 3. Bskx-[id number]-cqeldjmx mitral regurgitation 4. Moderately elevated right ventricular systolic pressure mildly elevated right atrial pressures 5. Trivial pericardial effusion Findings Procedure Information Contrast agent, definity, is being given per protocol without apparent complications. The quality of the study was technically difficult. The study quality is limited by lung artifact. Left Ventricle Normal left ventricular cavity size. There is normal left ventricular wall thickness. The left ventricular systolic function is moderately decreased. The visually estimated ejection fraction is between 35-40%. There is paradoxical septal motion consistent with a right ventricular pacemaker. Spectral Doppler is indicative of a restrictive filling pattern. Elevated filling pressures. E/E prime ratio is >15, consistent with elevated filling pressures. Evidence suggests grade III (severe) diastolic dysfunction. Right Ventricle Normal right ventricular cavity size and systolic function. There is a pacemaker wire seen in the right ventricle. Atria The left atrium is mildly dilated. Interatrial shunt cannot be excluded. The right atrium is normal in size. A pacemaker wire is identified in the right atrium. Aortic Valve Normal aortic valve structure and function. There is no aortic valve stenosis. There is no aortic valve regurgitation. Mitral Valve There is mild anterior mitral leaflet thickening. There is mild to moderate mitral valve regurgitation. There is no mitral valve stenosis. Pulmonic Valve The pulmonic valve is likely normal. Tricuspid Valve Normal tricuspid valve structure. There is mild tricuspid valve regurgitation. Mildly elevated right atrial pressure. Moderate pulmonary hypertension is present. Great Vessels All visible segments of the aorta are normal in size. The pulmonary artery was not well visualized. There is no dilatation of the ascending aorta measuring 3.20 cm. Venous The inferior vena cava is mildly dilated and collapses less than 50% with inspiration. Pericardium/Pleural There is a trivial circumferential pericardial effusion. There is a left sided pleural effusion. Prior Study Comparison No prior study available for comparison. Measurements 2D Linear Measurements IVSd: 0.95 0.6-0.9/0.6-1.0 cm LVIDd: 5.08 3.9-5.3/4.2-5.9 cm LVIDd Index: 3.06 2.4-3.2/2.2-3.1 cm/m2 LVIDs: 3.75 2.0-3.6 cm LVPWd: 0.86 0.7-1.1 cm LA Diam: 3.80 2.7-3.8/3.0-4.0 cm LAIDs Index: 2.29 1.5-2.3 cm/m2 LV Mass: 202.94 67-162/88-224 g LV Mass Index: 122.25 43-95/49-115 g/m2 LVOT Diam: 1.70 3.0+(-)1.3 cm 2D Systolic Function EF 4C: 34.40 >55% EF 2C: 35.60 >55% EF BiP: 35.00 >55% Mitral Valve MV Pk E: 0.96 MV PK A: 0.64 MV Decel Time: 174.00 E/A: 1.50 E'Lateral: 6.66 E'Medial: 4.60 E/E' Med: 20.90 E/E' Lat: 14.40 PHT: 51.00 MVA PHT: 4.31 Decel Pine: 5.51 Aortic Valve AoV Pk Devin: 1.47 AoV Mn Devin: 0.98 AoV VTI: 0.34 AoV Pk Grad: 9.00 Aov Mn Grad: 4.00 TEDDY Cont.VTI: 1.28 LVOT LVOT Pk Devin: 0.85 LVOT Mn Devin: 0.56 LVOT VTI: 0.19 LVOT Pk Grad: 3.00 LVOT Mn Grad: 2.00 LVOT Diam: 1.70 LVOT Area: 2.27 Diastolic Function MV Pk E: 0.96 MV Pk A: 0.64 E/A: 1.50 E'Medial: 4.60 E/E' Med: 20.90 E' Laterial: 6.66 E/E' Lat: 14.40 Right Ventricle TAPSE (mm): 25.40 TVS' Devin: 10.40 Tricuspid Valve TR Pk Devin: 3.34 TR Pk Grad: 45.00 RA Press: 8.00 RVSP: 53.00 Great Vessels Aorta Sinus of Valsalva: 2.80 2.0-3.5 cm Ao Asc: 3.20 2.1-3.4 cm Pulmonary Veins Pulm Vein S/D 0.50 Pulmonary Valve PV Pk Devin: 0.86 Peak PV Grad: 3.00 Updated in Other Vendor System with Status of Final Yeison Green MD electronically signed on 08/30/2023 4:48:43 PM with status of Final
[2023-08-30 07:06] LABS: Glucose, Whole Blood 70 mg/dL (60-115)
[2023-08-30] MEDS: vancomycin HCL 1,000 MG in 0.9 % Sodium Chloride 250 ML 270 MG IV (08:57)
[2023-08-30] MEDS: Aspirin 81 MG TAB.CHEW PO (08:58)
[2023-08-30] MEDS: Clopidogrel Bisulfate 75 MG TABLET PO (08:58)
[2023-08-30] MEDS: carvediloL 3.125 MG TABLET PO ×2 (08:58→20:38)
[2023-08-30] MEDS: Famotidine 20 MG TABLET PO (08:58)
[2023-08-30] MEDS: Multivitamin TABLET 1 TAB PO (08:58)
[2023-08-30] MEDS: lisinopriL 10 MG TABLET PO (08:58)
[2023-08-30] MEDS: amLODIPine Besylate 10 MG TABLET PO (08:58)
[2023-08-30] MEDS: polyethylene glycoL 3350 17 GM POWD.PACK PO (08:59)
[2023-08-30] MEDS: 0.9 % Sodium Chloride Flush 3 ML SYRINGE IVFLUSH ×2 (09:01→20:40)
[2023-08-30 10:08] LABS: Hematocrit 23.1 % (37.0-47.0); Hemoglobin 7.4 g/dl (12.0-16.0)
[2023-08-30 11:06] LABS: Glucose, Whole Blood 106 mg/dL (60-115)
--- NOTE | 2023-08-30 11:39 | HO.VASCPN ---
Subjective Subjective Date of Service: 08/30/23 Patient reports: no new complaints and feels better Interval history: Very complex 72-year-old female presents for follow-up status post right lower extremity endovascular intervention. She has nonhealing ulcers of the foot. She in addition does have gangrene of the right 2nd toe along with blistering on the plantar aspect of the foot as well. She now presents for routine follow-up. Physical Exam Vital Signs: Vital Signs: Last Vital Signs Temp 96 F L 08/30/23 06:44 Pulse 75 08/30/23 06:44 Resp 16 08/30/23 06:44 BP 144/70 H 08/30/23 06:44 Pulse Ox 93 08/30/23 06:44 O2 Del Method Room Air 08/30/23 06:44 O2 Flow Rate 1 08/29/23 19:35 BMI result Body Mass Index 31.6 Const: General: cooperative, healthy appearing and comfortable Orientation/consciousness: oriented to person, oriented to place and oriented to time HEENT: Head: Yes normal to inspection Neck: Neck: Yes normal visual inspection Carotids: no bruits Chest: Chest palpation & inspection: normal inspection of the chest Resp: Effort & Inspection: normal respiratory effort and able to speak in complete sentences Auscultation: clear to auscultation bilaterally, no crackles, no rales, no rhonchi and no wheezes Cardio: Rate: regular rate Rhythm: regular rhythm Heart sounds: S1 normal heart sound present and S2 normal heart sound present Bruits: no carotid bruits Peripheral pulses: Peripheral pulses 2+ throughout GI: Inspection: Yes normal to inspection Skin: Other: Right 2nd toe gangrene - great toe nonhealing ulcer; blistering plantar aspect Wounds: no wounds Hair: normal Neuro: General: oriented to person, oriented to place and oriented to time Cranial nerves: Yes CN's II-XII intact bilaterally and Yes Normal hearing present Cognition (Neuro): normal cognition Motor exam (neuro): 5/5 motor strength present throughout Extrem: Other: venous exam: No significant superficial varicosities or spider telangiectasias, minimal edema General: No clubbing, No cyanosis and No edema Psych: Appearance: grossly normal Mental Status: mental status grossly normal Speech and movement: Normal speech and movement present Progress Note: A&P Assessment and plan (1) Diabetic ulcer of toe: Status: Acute Assessment and Plan: In short patient has nonhealing ulcers of the right foot. In addition there is gangrene of the 2nd toe. Patient will require right transmetatarsal amputation. Risks benefits complications of the procedure were discussed in detail with the patient. The daughter was contacted who is listed as the primary contact. She will come to talk to her mother today. In addition I did inform her that the patient is scheduled for 10:00 o'clock tomorrow. Thank you for allowing us to assist in her care. If there are any questions or concerns please do not hesitate to contact us. (2) PAD (peripheral artery disease): Status: Acute Assessment and Plan: Continue aspirin and Plavix Time Spent With Patient Time: Total time managing care of this patient today ____ minutes. Procedures Date of Service Date of Service: 08/30/23 Quality Stroke Does the patient have a stroke diagnosis?: No VTE Prior VTE?: No VTE Risk Level:: Medical - moderate - high VTE Device Contraindication: Treatment Not Indicated VTE Drug Contraindication: N/A - Med Ordered
[2023-08-30] MEDS: Sodium Zirconium Cyclosilicate 5 GM POWD.PACK PO (12:19)
--- NOTE | 2023-08-30 13:20 | MHC.CM.PN ---
EMR REVIEWED. PER MD ROUNDS PATIENT NOT MEDICALLY CLEARED FOR DC. PLAN FOR OR TOMORROW. CM WILL CONTINUE TO FOLLOW.
--- NOTE | 2023-08-30 14:31 | P.PNIM_ITS ---
Subjective Subjective Date of Service: 08/30/23 Interval History: anemia, foot infection boderline elevated vanco levels night events noted- cxr-? some congestion -received iv lasix Review of Systems no sob or fever or cough Physical Exam 2 Vital Signs: Vital Signs: Last Vital Signs Temp 96 F L 08/30/23 06:44 Pulse 75 08/30/23 06:44 Resp 16 08/30/23 06:44 BP 144/70 H 08/30/23 06:44 Pulse Ox 93 08/30/23 06:44 O2 Del Method Room Air 08/30/23 06:44 O2 Flow Rate 1 08/29/23 19:35 BMI result Body Mass Index 31.6 General: AO X 3, no acute distress Resp: CTA bilateral CVS: S1,S2,RRR GI: +BS, NT, no distention,bs present. Skin: no change right foot area seems similar-please see pic. Objective Data Active Medications Acetaminophen (Acetaminophen 325 Mg Tablet) 650 mg PO Q6H PRN PRN Reason: Pain, Mild (Pain Scale 1-3) Last Admin: 08/25/23 17:37 Dose: 650 mg Documented By: ADALI Albuterol/Ipratropium (Albuterol/Iprat 2.5/0.5mg 3 Ml Ampul.Neb) 3 ml INHALE Q3H PRN PRN Reason: sob Last Admin: 08/29/23 20:51 Dose: 3 ml Documented By: ROGELIO Amlodipine Besylate (Amlodipine Besylate 10 Mg Tablet) 10 mg PO DAILY [facility]; Protocol Last Admin: 08/30/23 08:58 Dose: 10 mg Documented By: VARUN Aspirin (Aspirin 81 Mg Tab.Chew) 81 mg PO DAILY [facility] Last Admin: 08/30/23 08:58 Dose: 81 mg Documented By: VARUN Carvedilol (Carvedilol 3.125 Mg Tablet) 3.125 mg PO BID [facility]; Protocol Last Admin: 08/30/23 08:58 Dose: 3.125 mg Documented By: VARUN Clopidogrel Bisulfate (Clopidogrel Bisulfate 75 Mg Tablet) 75 mg PO DAILY [facility] Last Admin: 08/30/23 08:58 Dose: 75 mg Documented By: VARUN Dextrose (Dextrose 50 % 25 Gm/50 Ml Syringe) 25 gm IVPUSH Q15M PRN; Protocol PRN Reason: per Hypoglycemia Standing Ord. Docusate Sodium (Docusate Sodium 100 Mg Capsule) 100 mg PO BEDTIME [facility] Last Admin: 08/29/23 20:22 Dose: 100 mg Documented By: BIJAN Famotidine (Famotidine 20 Mg Tablet) 20 mg PO DAILY [facility] Last Admin: 08/30/23 08:58 Dose: 20 mg Documented By: VARUN Glucose (Glucose Gel 15 Gm Gel..Gram.) 15 gm PO Q15M PRN; Protocol PRN Reason: per Hypoglycemia Standing Ord. Hydralazine HCl (Hydralazine Hcl 20 Mg/Ml Vial) 5 mg IVPUSH Q6H PRN; Protocol PRN Reason: SBP>180 Cefepime HCl 2 gm/ Sodium (Chloride) 50 mls @ 100 mls/hr IV Q12H [facility] Last Infusion: 08/30/23 06:33 Dose: Infused Documented By: BIJAN Vancomycin HCl 1,000 mg/ (Sodium Chloride) 270 mls @ 270 mls/hr IV Q24H [facility] Last Infusion: 08/30/23 10:57 Dose: Infused Documented By: VARUN Insulin Glargine (Insulin Glargine,Hum.Rec.Anlog 100 Unit/Ml 10 Ml Vial) 20 unit SUBCUT BEDTIME [facility] Last Admin: 08/29/23 20:20 Dose: 20 unit Documented By: BIJAN Insulin Human Lispro (Insulin Lispro 100 Unit/Ml 3 Ml Vial) 0 unit SUBCUT QIDACHS [facility]; Protocol Last Admin: 08/30/23 12:31 Dose: Not Given Documented By: VARUN Non-Admin Reason: No Insulin Coverage Lisinopril (Lisinopril 10 Mg Tablet) 10 mg PO DAILY [facility]; Protocol Last Admin: 08/30/23 08:58 Dose: 10 mg Documented By: VARUN Melatonin (Melatonin 3 Mg Tablet) 6 mg PO BEDTIME PRN PRN Reason: Insomnia Last Admin: 08/28/23 22:42 Dose: 6 mg Documented By: JOHNNY Morphine Sulfate (Morphine Sulfate 4 Mg/Ml Cartridge) 4 mg IVPUSH Q2H PRN; Protocol PRN Reason: Pain, Severe (Pain Scale 7-10) Multivitamins/Vitamin C (Multivitamin Tablet) 1 tab PO DAILY [facility] Last Admin: 08/30/23 08:58 Dose: 1 tab Documented By: VARUN Ondansetron HCl (Ondansetron Hcl 4 Mg/2 Ml Vial) 4 mg IVPUSH Q8H PRN PRN Reason: Nausea and Vomiting Oxycodone HCl (Oxycodone Hcl Immed Release 5 Mg Tablet) 5 mg PO Q4H PRN PRN Reason: Pain, Moderate(Pain Scale 4-6) Pharmacy Consult (Consult Rx Vancomycin Dosing) 1 each MISCELLANE DAILY PRN PRN Reason: Consult order Polyethylene Glycol (Polyethylene Glycol 3350 17 Gm Powd.Pack) 17 gm PO DAILY [facility] Last Admin: 08/30/23 08:59 Dose: 17 gm Documented By: VARUN Sodium Chloride (0.9 % Sodium Chloride Flush 3 Ml Syringe) 3 ml IVFLUSH QSHIFT [facility] Last Admin: 08/30/23 09:01 Dose: 3 ml Documented By: VARUN Labs 08/30/23 09:56 08/30/23 05:31 Labs: Laboratory Results - last 24 hr 08/28/23 08/29/23 08/29/23 22:28 15:57 18:09 MCV MCH MCHC RDW Plt Count MPV Absolute Nucleated RBC Nucleated RBC % (auto) Anion Gap Estim Creat Clear Calc Estimated GFR POC Glucose 202 H Random Glucose Calcium Vancomycin Trough 21.3 H Blood Type O Positive Antibody Screen NEGATIVE Crossmatch See Detail 08/29/23 08/30/23 08/30/23 19:28 05:31 06:57 MCV 80.7 MCH 25.3 L MCHC 31.3 RDW 14.3 Plt Count 388 MPV 9.8 Absolute Nucleated RBC 0.000 Nucleated RBC % (auto) 0.0 Anion Gap 15 Estim Creat Clear Calc 28.8 Estimated GFR 34 POC Glucose 166 H 70 Random Glucose 77 Calcium 8.9 Vancomycin Trough Blood Type Antibody Screen Crossmatch 08/30/23 11:03 MCV MCH MCHC RDW Plt Count MPV Absolute Nucleated RBC Nucleated RBC % (auto) Anion Gap Estim Creat Clear Calc Estimated GFR POC Glucose 106 Random Glucose Calcium Vancomycin Trough Blood Type Antibody Screen Crossmatch Microbiology Microbiology Results: Microbiology 08/24/23 14:32 Blood Culture - Final Blood - Venous No growth after 5 days. 08/24/23 14:33 Blood Culture - Final Blood - Venous No growth after 5 days. Assessment and Plan (1) PAD (peripheral artery disease): Status: Acute (2) Cellulitis of foot, right: Status: Acute Plan 72-year-old female with pertinent history of peripheral arterial disease status left BKA, essential hypertension, insulin-dependent diabetes mellitus who presents to the emergency department for evaluation of right foot toe discoloration, swelling and discharge. Sepsis due to right foot cellulitis, diabetic foot infection with wet gangrene of the 2nd toe vanco trough were in 21.3 range -Vascular will perform angiogram on monday 08/28, and likely TMA to follow -continue IV Cefepime, started 08/24,vanco ,vanco trough 21.3 (stop vanco and changed to daptomycin-08/30/23) -follow cultures Id eval. Peripheral arterial disease: Imaging with severe stenosis in the distal right superior femoral artery and occlusion of the distal right posterior tibial artery. Vascular consular s/p angio: s/p right peroneal plasty,sfa plasty. vascular follow up. Insulin-dependent diabetes mellitus: POC, sliding scale, diabetic diet HTN, on norvasc and lisinopril at home not listed on med rec. Continue Norvasc increase to 10, continue lisinopril 10 and if needed increase to 20 hyponatremia,hyperkalemia ,also possible ginny vs ckd: moniter renal function and electrolytes given loklema elevated vanco levels nephro eval-due to multiple electrolytes abnormalities ,also ginny , insetting of cxr -?mild congestion. Cxr: mild congestion( may be due to received fluids ) not hypoxic or sob recieved iv lasix will check bnp,echo seems euvolemic hold on lasix unless clinically worsens Normocytic anemia, likely due to chronic inflammation: Hemoglobin above transfusion threshold. patient keep refusing transfusion family will talk to her for transfusion. Ckd 3 : cr similar Transaminitis: Due to sepsis, monitor LFTs, hold Lipitor Med rec completed (pt on lisinopril and Norvasc at home not listed on med ) DVT prophylaxis: Lovenox. Need for inpatient: IV Abx for diabetic foot gangrene with sepsis, at risk for limb loss and likely will need amputation, multiple electrolytic abnormalities need renal function monitoring as well as expert consultation, Also need further cardiac workup. Quality Stroke Does the patient have a stroke diagnosis?: No VTE Prior VTE?: No VTE Risk Level:: Medical - moderate - high VTE Device Contraindication: Treatment Not Indicated VTE Drug Contraindication: N/A - Med Ordered
[2023-08-30 16:19] LABS: Glucose, Whole Blood 124 mg/dL (60-115)
[2023-08-30 16:27] LABS: B Type Natriuretic Peptide 568 pg/mL (<100)
[2023-08-30] MEDS: Linezolid 600 MG TABLET PO (18:06)
[2023-08-30] MEDS: methylPREDNISolone Sod Succ 125 MG/2 ML VIAL IVPUSH (19:18)
[2023-08-30] MEDS: Furosemide 100 MG/10 ML VIAL 60 MG IVPUSH (19:18)
[2023-08-30] MEDS: Albuterol/Iprat 2.5/0.5MG 3 ML AMPUL.NEB INHALE (19:21)
[2023-08-30] MEDS: Nitroglycerin 2 % Oint 1 GM Packet 0.5 INCH TRANSDERMA (20:38)
[2023-08-30] MEDS: Docusate Sodium 100 MG CAPSULE PO (20:39)
--- NOTE | 2023-08-30 21:10 | PC.NURSE ---
Approximately 1830- discussed blood transfusion with patient via principal scientist services utilizing patient's preferred language. Patient continuing to refuse blood transfusions. Reports she does not feel confident accepting a transfusion and expressed concerns that it may cause other problems with her body. Patient reports she feels her family is pressuring her to accept the blood transfusions. Educated on indication for transfusion. Patient reports she feels tired and weak.
[2023-08-30 21:16] LABS: Glucose, Whole Blood 153 mg/dL (60-115)
--- NOTE | 2023-08-30 21:20 | PC.NURSE ---
Approximately 1845- patient presented with increasing shortness of breath. Vital signs obtained with SpO2 92% on 2L via NC, BP 184/78, HR 64, and RR 26. Accessory muscle use present with inspiratory and expiratory wheezing. Fine crackles auscultated in bilateral bases. Denied chest pain. Dr. Caron Dickerson contacted and present at bedside. Chest x-ray ordered. Lasix, methyprednisoline, and updraft ordered. Lasix and Methylprednisolone administered- refer to MAR for documentation. Care transferred to RN for next shift.
[2023-08-30] MEDS: Insulin Glargine,Hum.rec.anlog 100 UNIT/ML 10 ML VIAL 10 UNIT SUBCUT (22:14)
--- NOTE | 2023-08-30 22:35 | P.CNID_ITS ---
History of Present Illness Data of Consult Service Date: 08/30/23 Primary Care Provider: Unknown Physician HPI Reason for consult: right second and third toe possible OM She presents with redness and swelling right 2/3 toes. This was present about last two weeks worsening. XR shows soft tissue swelling and gas . I had seen patient in 10/2022 and she started on Daptomycin for OM right great toe but only received two weeks and CK was over 20,000 (see scanned reports from [facility]). She finished Doxycycline and I didnt see her in followup. She also subsequently had distal phalanx removed right great toe. Review of Systems 2 Review of Systems: Yes all other systems are reviewed and are negative [facility] Past Medical History Medical History Acute systolic CHF (congestive heart failure) PAD (peripheral artery disease) Hypertension Essential hypertension Mood disorder Diabetes History of left below knee amputation Surgical History Surgical History History of femoral angiogram History of left below knee amputation Pacemaker Social History Social History Household Members: Family and Children Housing: House Unable to assess alcohol history related to: Unknown Alcohol intake: current Alcohol intake frequency: holidays/special occasions only Patient Tobacco Use Status: Never used Tobacco service: No Current occupational status: retired Meds Allergies Allergy/AdvReac Type Severity Reaction Status Date / Time penicillin V Allergy Unknown RSH,ITCHY Verified 11/07/22 13:40 Active Medications: Current Medications Acetaminophen (Acetaminophen 325 Mg Tablet) 650 mg PO Q6H PRN PRN Reason: Pain, Mild (Pain Scale 1-3) Last Admin: 08/25/23 17:37 Dose: 650 mg Albuterol/Ipratropium (Albuterol/Iprat 2.5/0.5mg 3 Ml Ampul.Neb) 3 ml INHALE Q3H PRN PRN Reason: sob Last Admin: 08/29/23 20:51 Dose: 3 ml Albuterol/Ipratropium (Albuterol/Iprat 2.5/0.5mg 3 Ml Ampul.Neb) 3 ml INHALE Q4H JAJA Last Admin: 08/30/23 19:23 Dose: Not Given Amlodipine Besylate (Amlodipine Besylate 10 Mg Tablet) 10 mg PO DAILY [facility]; Protocol Last Admin: 08/30/23 08:58 Dose: 10 mg Aspirin (Aspirin 81 Mg Tab.Chew) 81 mg PO DAILY [facility] Last Admin: 08/30/23 08:58 Dose: 81 mg Carvedilol (Carvedilol 3.125 Mg Tablet) 3.125 mg PO BID [facility]; Protocol Last Admin: 08/30/23 20:38 Dose: 3.125 mg Clopidogrel Bisulfate (Clopidogrel Bisulfate 75 Mg Tablet) 75 mg PO DAILY [facility] Last Admin: 08/30/23 08:58 Dose: 75 mg Dextrose (Dextrose 50 % 25 Gm/50 Ml Syringe) 25 gm IVPUSH Q15M PRN; Protocol PRN Reason: per Hypoglycemia Standing Ord. Docusate Sodium (Docusate Sodium 100 Mg Capsule) 100 mg PO BEDTIME [facility] Last Admin: 08/30/23 20:39 Dose: 100 mg Famotidine (Famotidine 20 Mg Tablet) 20 mg PO DAILY [facility] Last Admin: 08/30/23 08:58 Dose: 20 mg Furosemide (Furosemide 20 Mg/2 Ml Vial) 20 mg IVPUSH BID@0900,1800 [facility]; Protocol Glucose (Glucose Gel 15 Gm Gel..Gram.) 15 gm PO Q15M PRN; Protocol PRN Reason: per Hypoglycemia Standing Ord. Hydralazine HCl (Hydralazine Hcl 20 Mg/Ml Vial) 5 mg IVPUSH Q6H PRN; Protocol PRN Reason: SBP>180 Cefepime HCl 2 gm/ Sodium (Chloride) 50 mls @ 100 mls/hr IV Q12H [facility] Last Infusion: 08/30/23 18:01 Dose: Infused Insulin Glargine (Insulin Glargine,Hum.Rec.Anlog 100 Unit/Ml 10 Ml Vial) 20 unit SUBCUT BEDTIME [facility] Last Admin: 08/30/23 21:27 Dose: Not Given Insulin Human Lispro (Insulin Lispro 100 Unit/Ml 3 Ml Vial) 0 unit SUBCUT QIDACHS [facility]; Protocol Last Admin: 08/30/23 21:27 Dose: Not Given Linezolid (Linezolid 600 Mg Tablet) 600 mg PO Q12H [facility] Last Admin: 08/30/23 18:06 Dose: 600 mg Melatonin (Melatonin 3 Mg Tablet) 6 mg PO BEDTIME PRN PRN Reason: Insomnia Last Admin: 08/28/23 22:42 Dose: 6 mg Morphine Sulfate (Morphine Sulfate 4 Mg/Ml Cartridge) 4 mg IVPUSH Q2H PRN; Protocol PRN Reason: Pain, Severe (Pain Scale 7-10) Multivitamins/Vitamin C (Multivitamin Tablet) 1 tab PO DAILY [facility] Last Admin: 08/30/23 08:58 Dose: 1 tab Ondansetron HCl (Ondansetron Hcl 4 Mg/2 Ml Vial) 4 mg IVPUSH Q8H PRN PRN Reason: Nausea and Vomiting Oxycodone HCl (Oxycodone Hcl Immed Release 5 Mg Tablet) 5 mg PO Q4H PRN PRN Reason: Pain, Moderate(Pain Scale 4-6) Polyethylene Glycol (Polyethylene Glycol 3350 17 Gm Powd.Pack) 17 gm PO DAILY [facility] Last Admin: 08/30/23 08:59 Dose: 17 gm Sodium Chloride (0.9 % Sodium Chloride Flush 3 Ml Syringe) [facility] Last Admin: 08/30/23 20:40 Dose: 3 ml Home Medications Medication Instructions Recorded Confirmed Last Taken Type blood sugar diagnostic #10 ea 06/11/20 Unknown History insulin aspart U-100 100 unit/mL 20 unit subcut TIDAC 06/11/20 08/24/23 Unknown History (3 mL) subcutaneous pen lancets 28 gauge #100 ea 06/11/20 Unknown History pen needle, diabetic 31 gauge x #50 ea 06/11/20 Unknown History 1/ insulin degludec 200 unit/mL (3 60 unit subcut BEDTIME 07/20/21 08/24/23 Unknown History mL) subcutaneous pen (Tresiba FlexTouch U-200 insulin) pen needle, diabetic 31 gauge x #50 ea 07/20/21 Unknown History aspirin 81 mg chewable tablet 81 mg PO DAILY 10/22/22 08/24/23 Unknown History multivitamin 1 tab PO DAILY 08/24/23 08/24/23 Unknown History Physical Exam 2 Vital Signs: Vital Signs: Last Vital Signs Temp 97.8 F 08/30/23 19:23 Pulse 65 08/30/23 20:53 Resp 20 08/30/23 20:53 BP 175/86 H 08/30/23 20:53 Pulse Ox 96 08/30/23 20:53 O2 Del Method Nasal Cannula 08/30/23 20:53 O2 Flow Rate 2 08/30/23 20:53 BMI result Body Mass Index 31.6 Const: General: cooperative HEENT: Head: Yes normal to inspection Face and sinus: Yes normal facial exam Mouth: Normal oral and palatal mucosa present Teeth and gingiva: d entition normal Eyes: General: appearance normal, both eyes and all related structures P upils: Equal, round and reactive pupils present Resp: Effort & Inspection: normal respiratory effort Cardio: Rate: regular rate Rhythm: regular rhythm GI: Palpation (GI): Soft to palpation and nontender : General: Yes no CVA tenderness Back/Spine/Pelvis: Back: no CVA tenderness Skin: General skin exam: no rashes or lesions noted Neuro: General: moves all extremities Cranial nerves: Yes Equal, round and reactive pupils present Extrem: Other: pulses plus two in feet bilateral neuropathy right 2/3 toes,especially second toe black missing first half great toe Psych: Appearance: grossly normal Results Labs 08/30/23 09:56 08/30/23 05:31 Labs: Short CBC 08/30/23 08/30/23 Range/Units 05:31 09:56 WBC 10.6 (4.8-10.8) X10*3/uL Hgb 7.2 L 7.4 L (12.0-16.0) g/dl Hct 23.0 L 23.1 L (37.0-47.0) % Plt Count 388 (160-400) X10*3/uL BMP 08/30/23 05:31 Sodium 130 L Potassium 5.4 H Chloride 100 Carbon Dioxide 20 L BUN 27 H Creatinine 1.51 H Calcium 8.9 Microbiology Microbiology Results: Microbiology 08/24/23 14:32 Blood - Venous Blood Culture - Final No growth after 5 days. 08/24/23 14:33 Blood - Venous Blood Culture - Final No growth after 5 days. Assessment and Plan (1) Diabetic ulcer of toe: Status: Acute There is concern over OM right 2/3 toes. She had prior elevated CK with weakness on Daptomycin She has CKD. Organism is unknown Would have vascular see patient. Linezolid and Cefepime and Flagyl due to PCN allergy. If definitive surgical therapy desired no need for fpc antibiotics. (2) Cellulitis of foot, right: Status: Acute
--- NOTE | 2023-08-30 23:59 | PC.NURSE ---
Patient refused Metronidazole stating maybe tomorrow because she is sleepy right now, also refusing oxygen, currently [address] York informed.
[2023-08-31] VITALS (14 sets, daily range): BP systolic 148–186; BP diastolic 72–97; PULSE 60–71; RESP 16–20; TEMP 35.9–36.8; O2SAT 92–98; BMI 33.2
[2023-08-31] MEDS: Linezolid 600 MG TABLET PO ×2 (05:36→16:54)
[2023-08-31 06:48] LABS: Creatinine Clr Calc Pharmacy 28.5; Estimated Glomerular Filt Rate 32
[2023-08-31 07:32] LABS: Glucose, Whole Blood 157 mg/dL (60-115)
[2023-08-31 07:37] LABS: Anion Gap 16 (12-20)
[2023-08-31 07:40] LABS: Blood Urea Nitrogen 36 mg/dL (9-16); Calcium 9.1 mg/dL (8.4-10.2); Carbon Dioxide 20 mmol/L (22-29); Chloride 97 mmol/L (96-108); Glucose Random 156 mg/dL (60-115); Potassium 5.3 mmol/L (3.3-5.1); Sodium 128 mmol/L (135-145)
[2023-08-31] MEDS: Albuterol/Iprat 2.5/0.5MG 3 ML AMPUL.NEB INHALE ×3 (07:46→20:11)
--- NOTE | 2023-08-31 08:44 | HO.ANESPROP2 ---
[facility] Active Problems Active Problems: All Active Problems (Updated 08/30/23 @ 19:17 by Caron Dickerson MD) Acute systolic CHF (congestive heart failure) (Acute) PAD (peripheral artery disease) (Acute) Diabetic ulcer of toe (Acute) Cellulitis of foot, right (Acute) Osteomyelitis (Acute) Osteomyelitis (Acute) Mood disorder (Acute) Essential hypertension (Acute) History of left below knee amputation (Acute) Past Medical History Medical History Acute systolic CHF (congestive heart failure) PAD (peripheral artery disease) Hypertension Essential hypertension Mood disorder Diabetes History of left below knee amputation Functional capacity: uses cane/walker Patient : No Family History Family history of problems with anesthesia: No Surgical History Surgical History History of femoral angiogram History of left below knee amputation Pacemaker History of Problems with Anesthesia: No Social History Social History Household Members: Family and Children Housing: House Unable to assess alcohol history related to: Unknown Alcohol intake: current Alcohol intake frequency: holidays/special occasions only Patient Tobacco Use Status: Never used Tobacco service: No Current occupational status: retired Meds Allergies Allergy/AdvReac Type Severity Reaction Status Date / Time penicillin V Allergy Unknown RSH,ITCHY Verified 11/07/22 13:40 Active Medications: Current Medications Acetaminophen (Acetaminophen 325 Mg Tablet) 650 mg PO Q6H PRN PRN Reason: Pain, Mild (Pain Scale 1-3) Last Admin: 08/25/23 17:37 Dose: 650 mg Albuterol/Ipratropium (Albuterol/Iprat 2.5/0.5mg 3 Ml Ampul.Neb) 3 ml INHALE Q3H PRN PRN Reason: sob Last Admin: 08/29/23 20:51 Dose: 3 ml Albuterol/Ipratropium (Albuterol/Iprat 2.5/0.5mg 3 Ml Ampul.Neb) 3 ml INHALE Q4H JAJA Last Admin: 08/31/23 07:46 Dose: 3 ml Amlodipine Besylate (Amlodipine Besylate 10 Mg Tablet) 10 mg PO DAILY JAJA; Protocol Last Admin: 08/30/23 08:58 Dose: 10 mg Aspirin (Aspirin 81 Mg Tab.Chew) 81 mg PO DAILY [facility] Last Admin: 08/30/23 08:58 Dose: 81 mg Carvedilol (Carvedilol 3.125 Mg Tablet) 3.125 mg PO BID [facility]; Protocol Last Admin: 08/30/23 20:38 Dose: 3.125 mg Clopidogrel Bisulfate (Clopidogrel Bisulfate 75 Mg Tablet) 75 mg PO DAILY [facility] Last Admin: 08/30/23 08:58 Dose: 75 mg Dextrose (Dextrose 50 % 25 Gm/50 Ml Syringe) 25 gm IVPUSH Q15M PRN; Protocol PRN Reason: per Hypoglycemia Standing Ord. Docusate Sodium (Docusate Sodium 100 Mg Capsule) 100 mg PO BEDTIME [facility] Last Admin: 08/30/23 20:39 Dose: 100 mg Famotidine (Famotidine 20 Mg Tablet) 20 mg PO DAILY [facility] Last Admin: 08/30/23 08:58 Dose: 20 mg Furosemide (Furosemide 20 Mg/2 Ml Vial) 20 mg IVPUSH BID@0900,1800 [facility]; Protocol Glucose (Glucose Gel 15 Gm Gel..Gram.) 15 gm PO Q15M PRN; Protocol PRN Reason: per Hypoglycemia Standing Ord. Hydralazine HCl (Hydralazine Hcl 20 Mg/Ml Vial) 5 mg IVPUSH Q6H PRN; Protocol PRN Reason: SBP>180 Cefepime HCl 2 gm/ Sodium (Chloride) 50 mls @ 100 mls/hr IV Q12H [facility] Last Infusion: 08/31/23 06:09 Dose: Infused Metronidazole (Flagyl) 500 mg in 100 mls @ 100 mls/hr IV Q12H [facility] Last Admin: 08/31/23 00:03 Dose: Not Given Insulin Glargine (Insulin Glargine,Hum.Rec.Anlog 100 Unit/Ml 10 Ml Vial) 20 unit SUBCUT BEDTIME [facility] Last Admin: 08/30/23 21:27 Dose: Not Given Insulin Human Lispro (Insulin Lispro 100 Unit/Ml 3 Ml Vial) 0 unit SUBCUT QIDACHS [facility]; Protocol Last Admin: 08/31/23 07:43 Dose: Not Given Linezolid (Linezolid 600 Mg Tablet) 600 mg PO Q12H [facility] Last Admin: 08/31/23 05:36 Dose: 600 mg Melatonin (Melatonin 3 Mg Tablet) 6 mg PO BEDTIME PRN PRN Reason: Insomnia Last Admin: 08/28/23 22:42 Dose: 6 mg Morphine Sulfate (Morphine Sulfate 4 Mg/Ml Cartridge) 4 mg IVPUSH Q2H PRN; Protocol PRN Reason: Pain, Severe (Pain Scale 7-10) Multivitamins/Vitamin C (Multivitamin Tablet) 1 tab PO DAILY [facility] Last Admin: 08/30/23 08:58 Dose: 1 tab Ondansetron HCl (Ondansetron Hcl 4 Mg/2 Ml Vial) 4 mg IVPUSH Q8H PRN PRN Reason: Nausea and Vomiting Oxycodone HCl (Oxycodone Hcl Immed Release 5 Mg Tablet) 5 mg PO Q4H PRN PRN Reason: Pain, Moderate(Pain Scale 4-6) Polyethylene Glycol (Polyethylene Glycol 3350 17 Gm Powd.Pack) 17 gm PO DAILY [facility] Last Admin: 08/30/23 08:59 Dose: 17 gm Sodium Chloride (0.9 % Sodium Chloride Flush 3 Ml Syringe) 3 ml IVFLUSH QSHIFT [facility] Last Admin: 08/30/23 20:40 Dose: 3 ml Home Medications Medication Instructions Recorded Confirmed Last Taken Type blood sugar diagnostic #10 06/11/20 Unknown History insulin aspart U-100 100 unit/mL 20 unit subcut TIDAC 06/11/20 08/24/23 Unknown History (3 mL) subcutaneous pen lancets 28 gauge #100 ea 06/11/20 Unknown History pen needle, diabetic 31 gauge x #50 ea 06/11/20 Unknown History / insulin degludec 200 unit/mL (3 60 unit subcut BEDTIME 07/20/21 08/24/23 Unknown History mL) subcutaneous pen (Tresiba FlexTouch U-200 insulin) pen needle, diabetic 31 gauge x #50 ea 07/20/21 Unknown History aspirin 81 mg chewable tablet 81 mg PO DAILY 10/22/22 08/24/23 Unknown History multivitamin 1 tab PO DAILY 08/24/23 08/24/23 Unknown History Exam Height,Weight and Vital Signs: Height 4 ft 11 in Weight 74.6 kg Last Vital Signs Temp 97.1 F 08/31/23 07:15 Pulse 65 08/31/23 07:47 Resp 17 08/31/23 07:47 BP 176/78 H 08/31/23 07:15 Pulse Ox 93 08/31/23 07:15 O2 Del Method Room Air, Ambu-Bag 08/31/23 07:15 O2 Flow Rate 2 08/30/23 20:53 Pertinent Lab Results Pertinent Lab Results: Laboratory Tests 08/24/23 08/24/23 08/24/23 14:32 14:33 20:42 WBC 13.9 H RBC 3.45 L Hgb 8.7 L Hct 27.7 L MCV 80.3 MCH 25.2 L MCHC 31.4 RDW 13.7 Plt Count 373 D MPV 9.7 Immature Gran % (Auto) 0.8 H Neut % (Auto) 80.8 H Lymph % (Auto) 7.3 L [place] % (Auto) 10.1 Eos % (Auto) 0.8 Baso % (Auto) 0.2 Lymph # (Auto) 1.0 L [place] # (Auto) 1.4 H Eos # (Auto) 0.1 Baso # (Auto) 0.0 Abs Immat Gran (auto) 0.11 H Absolute Neuts (auto) 11.3 H Absolute Nucleated RBC 0.000 Nucleated RBC % (auto) 0.0 ESR 111 H Hold Purple Top Sodium 128 L Potassium 5.7 H D Chloride 96 Carbon Dioxide 22 Anion Gap 16 BUN 34 H Creatinine 1.44 H Estim Creat Clear Calc 30.6 Estimated GFR 36 POC Glucose Random Glucose 258 H Osmolality 297 Lactic Acid 1.2 Calcium 9.1 D Total Bilirubin 0.2 AST 45 H ALT 62 H Alkaline Phosphatase 276 H C-Reactive Protein 19.20 H B-Natriuretic Peptide Total Protein 8.2 H Albumin 2.8 L Urine Osmolality Ur Random Sodium Vancomycin Trough Random Vancomycin Blood Type Antibody Screen Crossmatch 08/24/23 08/25/23 08/25/23 21:45 07:11 07:29 WBC 11.5 H RBC 2.97 L Hgb 7.6 L Hct 23.7 L MCV 79.8 L MCH 25.6 L MCHC 32.1 RDW 13.8 Plt Count 309 MPV 9.3 L Immature Gran % (Auto) 0.8 H Neut % (Auto) 74.1 H Lymph % (Auto) 9.6 L [place] % (Auto) 12.9 H Eos % (Auto) 2.3 Baso % (Auto) 0.3 Lymph # (Auto) 1.1 L [place] # (Auto) 1.5 H Eos # (Auto) 0.3 Baso # (Auto) 0.0 Abs Immat Gran (auto) 0.09 H Absolute Neuts (auto) 8.5 H Absolute Nucleated RBC 0.000 Nucleated RBC % (auto) 0.0 ESR Hold Purple Top Sodium 131 L Potassium 4.2 D Chloride 99 Carbon Dioxide 25 Anion Gap 11 L BUN 31 H Creatinine 1.38 Estim Creat Clear Calc 32.0 Estimated GFR 38 POC Glucose 327 H 86 Random Glucose 86 Osmolality Lactic Acid Calcium 8.4 D Total Bilirubin AST ALT Alkaline Phosphatase C-Reactive Protein B-Natriuretic Peptide Total Protein Albumin Urine Osmolality Ur Random Sodium Vancomycin Trough Random Vancomycin Blood Type Antibody Screen Crossmatch 08/25/23 08/25/23 08/25/23 11:13 16:33 19:41 WBC RBC Hgb Hct MCV MCH MCHC RDW Plt Count MPV Immature Gran % (Auto) Neut % (Auto) Lymph % (Auto) [place] % (Auto) Eos % (Auto) Baso % (Auto) Lymph # (Auto) [place] # (Auto) Eos # (Auto) Baso # (Auto) Abs Immat Gran (auto) Absolute Neuts (auto) Absolute Nucleated RBC Nucleated RBC % (auto) ESR Hold Purple Top Sodium Potassium Chloride Carbon Dioxide Anion Gap BUN Creatinine Estim Creat Clear Calc Estimated GFR POC Glucose 66 268 H 224 H Random Glucose Osmolality Lactic Acid Calcium Total Bilirubin AST ALT Alkaline Phosphatase C-Reactive Protein B-Natriuretic Peptide Total Protein Albumin Urine Osmolality Ur Random Sodium Vancomycin Trough Random Vancomycin Blood Type Antibody Screen Crossmatch 08/26/23 08/26/23 08/26/23 05:50 07:26 08:32 WBC RBC Hgb Hct MCV MCH MCHC RDW Plt Count MPV Immature Gran % (Auto) Neut % (Auto) Lymph % (Auto) [place] % (Auto) Eos % (Auto) Baso % (Auto) Lymph # (Auto) [place] # (Auto) Eos # (Auto) Baso # (Auto) Abs Immat Gran (auto) Absolute Neuts (auto) Absolute Nucleated RBC Nucleated RBC % (auto) ESR Hold Purple Top Sodium 137 Potassium 4.4 Chloride 102 Carbon Dioxide 25 Anion Gap 14 BUN 27 H Creatinine 1.28 Estim Creat Clear Calc 34.0 Estimated GFR 41 POC Glucose 52 L* 133 H Random Glucose 38 L* Osmolality Lactic Acid Calcium 8.7 Total Bilirubin AST ALT Alkaline Phosphatase C-Reactive Protein B-Natriuretic Peptide Total Protein Albumin Urine Osmolality Ur Random Sodium Vancomycin Trough Random Vancomycin Blood Type Antibody Screen Crossmatch 08/26/23 08/26/23 08/26/23 11:31 14:00 16:34 WBC RBC Hgb Hct MCV MCH MCHC RDW Plt Count MPV Immature Gran % (Auto) Neut % (Auto) Lymph % (Auto) [place] % (Auto) Eos % (Auto) Baso % (Auto) Lymph # (Auto) [place] # (Auto) Eos # (Auto) Baso # (Auto) Abs Immat Gran (auto) Absolute Neuts (auto) Absolute Nucleated RBC Nucleated RBC % (auto) ESR Hold Purple Top Sodium Potassium Chloride Carbon Dioxide Anion Gap BUN Creatinine Estim Creat Clear Calc Estimated GFR POC Glucose 150 H 281 H Random Glucose Osmolality Lactic Acid Calcium Total Bilirubin AST ALT Alkaline Phosphatase C-Reactive Protein B-Natriuretic Peptide Total Protein Albumin Urine Osmolality 368 L Ur Random Sodium 22.0 Vancomycin Trough Random Vancomycin Blood Type Antibody Screen Crossmatch 08/26/23 08/26/23 08/27/23 18:01 20:02 06:03 WBC RBC Hgb Hct MCV MCH MCHC RDW Plt Count MPV Immature Gran % (Auto) Neut % (Auto) Lymph % (Auto) [place] % (Auto) Eos % (Auto) Baso % (Auto) Lymph # (Auto) [place] # (Auto) Eos # (Auto) Baso # (Auto) Abs Immat Gran (auto) Absolute Neuts (auto) Absolute Nucleated RBC Nucleated RBC % (auto) ESR Hold Purple Top Sodium 131 L Potassium 4.6 Chloride 102 Carbon Dioxide 22 Anion Gap 12 BUN 24 H Creatinine 1.22 Estim Creat Clear Calc 35.7 Estimated GFR 43 POC Glucose 269 H Random Glucose 105 Osmolality Lactic Acid Calcium 8.8 Total Bilirubin AST ALT Alkaline Phosphatase C-Reactive Protein B-Natriuretic Peptide Total Protein Albumin Urine Osmolality Ur Random Sodium Vancomycin Trough Random Vancomycin 7.5 L Blood Type Antibody Screen Crossmatch 08/27/23 08/27/23 08/27/23 07:40 11:31 16:07 WBC RBC Hgb Hct MCV MCH MCHC RDW Plt Count MPV Immature Gran % (Auto) Neut % (Auto) Lymph % (Auto) [place] % (Auto) Eos % (Auto) Baso % (Auto) Lymph # (Auto) [place] # (Auto) Eos # (Auto) Baso # (Auto) Abs Immat Gran (auto) Absolute Neuts (auto) Absolute Nucleated RBC Nucleated RBC % (auto) ESR Hold Purple Top Sodium Potassium Chloride Carbon Dioxide Anion Gap BUN Creatinine Estim Creat Clear Calc Estimated GFR POC Glucose 103 160 H 136 H Random Glucose Osmolality Lactic Acid Calcium Total Bilirubin AST ALT Alkaline Phosphatase C-Reactive Protein B-Natriuretic Peptide Total Protein Albumin Urine Osmolality Ur Random Sodium Vancomycin Trough Random Vancomycin Blood Type Antibody Screen Crossmatch 08/27/23 08/27/23 08/27/23 16:22 18:03 19:29 WBC RBC Hgb Hct MCV MCH MCHC RDW Plt Count MPV Immature Gran % (Auto) Neut % (Auto) Lymph % (Auto) [place] % (Auto) Eos % (Auto) Baso % (Auto) Lymph # (Auto) [place] # (Auto) Eos # (Auto) Baso # (Auto) Abs Immat Gran (auto) Absolute Neuts (auto) Absolute Nucleated RBC Nucleated RBC % (auto) ESR Hold Purple Top Sodium Potassium Chloride Carbon Dioxide Anion Gap BUN Creatinine Estim Creat Clear Calc Estimated GFR POC Glucose 129 H 140 H Random Glucose Osmolality Lactic Acid Calcium Total Bilirubin AST ALT Alkaline Phosphatase C-Reactive Protein B-Natriuretic Peptide Total Protein Albumin Urine Osmolality Ur Random Sodium Vancomycin Trough Random Vancomycin 13.2 L Blood Type Antibody Screen Crossmatch 08/28/23 08/28/23 08/28/23 05:55 08:00 16:14 WBC RBC Hgb Hct MCV MCH MCHC RDW Plt Count MPV Immature Gran % (Auto) Neut % (Auto) Lymph % (Auto) [place] % (Auto) Eos % (Auto) Baso % (Auto) Lymph # (Auto) [place] # (Auto) Eos # (Auto) Baso # (Auto) Abs Immat Gran (auto) Absolute Neuts (auto) Absolute Nucleated RBC Nucleated RBC % (auto) ESR Hold Purple Top SEE NOTE Sodium Potassium Chloride Carbon Dioxide Anion Gap BUN Creatinine 1.27 Estim Creat Clear Calc 34.3 Estimated GFR 41 POC Glucose 113 139 H Random Glucose Osmolality Lactic Acid Calcium Total Bilirubin AST ALT Alkaline Phosphatase C-Reactive Protein B-Natriuretic Peptide Total Protein Albumin Urine Osmolality Ur Random Sodium Vancomycin Trough Random Vancomycin Blood Type Antibody Screen Crossmatch 08/28/23 08/28/23 08/28/23 19:49 21:08 22:28 WBC 12.6 H RBC 2.91 L Hgb 7.4 L Hct 23.5 L MCV 80.8 MCH 25.4 L MCHC 31.5 RDW 14.2 Plt Count 367 MPV 9.7 Immature Gran % (Auto) Neut % (Auto) Lymph % (Auto) [place] % (Auto) Eos % (Auto) Baso % (Auto) Lymph # (Auto) [place] # (Auto) Eos # (Auto) Baso # (Auto) Abs Immat Gran (auto) Absolute Neuts (auto) Absolute Nucleated RBC 0.000 Nucleated RBC % (auto) 0.0 ESR Hold Purple Top Sodium Potassium Chloride Carbon Dioxide Anion Gap BUN Creatinine Estim Creat Clear Calc Estimated GFR POC Glucose 214 H Random Glucose Osmolality Lactic Acid Calcium Total Bilirubin AST ALT Alkaline Phosphatase C-Reactive Protein B-Natriuretic Peptide Total Protein Albumin Urine Osmolality Ur Random Sodium Vancomycin Trough Random Vancomycin Blood Type O Positive Antibody Screen NEGATIVE Crossmatch See Detail 08/29/23 08/29/23 08/29/23 05:54 07:29 11:13 WBC 11.6 H RBC 2.89 L Hgb 7.2 L Hct 23.7 L MCV 82.0 MCH 24.9 L MCHC 30.4 L RDW 14.3 Plt Count 372 MPV 10.0 Immature Gran % (Auto) Neut % (Auto) Lymph % (Auto) [place] % (Auto) Eos % (Auto) Baso % (Auto) Lymph # (Auto) [place] # (Auto) Eos # (Auto) Baso # (Auto) Abs Immat Gran (auto) Absolute Neuts (auto) Absolute Nucleated RBC 0.000 Nucleated RBC % (auto) 0.0 ESR Hold Purple Top Sodium 132 L Potassium 5.5 H Chloride 103 Carbon Dioxide 22 Anion Gap 13 BUN 25 H Creatinine 1.38 Estim Creat Clear Calc 31.5 Estimated GFR 38 POC Glucose 99 106 Random Glucose 94 Osmolality Lactic Acid Calcium 8.7 Total Bilirubin AST ALT Alkaline Phosphatase C-Reactive Protein B-Natriuretic Peptide Total Protein Albumin Urine Osmolality Ur Random Sodium Vancomycin Trough Random Vancomycin Blood Type Antibody Screen Crossmatch 08/29/23 08/29/23 08/29/23 15:57 18:09 19:28 WBC RBC Hgb Hct MCV MCH MCHC RDW Plt Count MPV Immature Gran % (Auto) Neut % (Auto) Lymph % (Auto) [place] % (Auto) Eos % (Auto) Baso % (Auto) Lymph # (Auto) [place] # (Auto) Eos # (Auto) Baso # (Auto) Abs Immat Gran (auto) Absolute Neuts (auto) Absolute Nucleated RBC Nucleated RBC % (auto) ESR Hold Purple Top Sodium Potassium Chloride Carbon Dioxide Anion Gap BUN Creatinine Estim Creat Clear Calc Estimated GFR POC Glucose 202 H 166 H Random Glucose Osmolality Lactic Acid Calcium Total Bilirubin AST ALT Alkaline Phosphatase C-Reactive Protein B-Natriuretic Peptide Total Protein Albumin Urine Osmolality Ur Random Sodium Vancomycin Trough 21.3 H Random Vancomycin Blood Type Antibody Screen Crossmatch 08/30/23 08/30/23 08/30/23 05:31 06:57 09:56 WBC 10.6 RBC 2.85 L Hgb 7.2 L 7.4 L Hct 23.0 L 23.1 L MCV 80.7 MCH 25.3 L MCHC 31.3 RDW 14.3 Plt Count 388 MPV 9.8 Immature Gran % (Auto) Neut % (Auto) Lymph % (Auto) [place] % (Auto) Eos % (Auto) Baso % (Auto) Lymph # (Auto) [place] # (Auto) Eos # (Auto) Baso # (Auto) Abs Immat Gran (auto) Absolute Neuts (auto) Absolute Nucleated RBC 0.000 Nucleated RBC % (auto) 0.0 ESR Hold Purple Top Sodium 130 L Potassium 5.4 H Chloride 100 Carbon Dioxide 20 L Anion Gap 15 BUN 27 H Creatinine 1.51 H Estim Creat Clear Calc 28.8 Estimated GFR 34 POC Glucose 70 Random Glucose 77 Osmolality Lactic Acid Calcium 8.9 Total Bilirubin AST ALT Alkaline Phosphatase C-Reactive Protein B-Natriuretic Peptide Total Protein Albumin Urine Osmolality Ur Random Sodium Vancomycin Trough Random Vancomycin Blood Type Antibody Screen Crossmatch 08/30/23 08/30/23 08/30/23 11:03 16:00 16:15 WBC RBC Hgb Hct MCV MCH MCHC RDW Plt Count MPV Immature Gran % (Auto) Neut % (Auto) Lymph % (Auto) [place] % (Auto) Eos % (Auto) Baso % (Auto) Lymph # (Auto) [place] # (Auto) Eos # (Auto) Baso # (Auto) Abs Immat Gran (auto) Absolute Neuts (auto) Absolute Nucleated RBC Nucleated RBC % (auto) ESR Hold Purple Top Sodium Potassium Chloride Carbon Dioxide Anion Gap BUN Creatinine Estim Creat Clear Calc Estimated GFR POC Glucose 106 124 H Random Glucose Osmolality Lactic Acid Calcium Total Bilirubin AST ALT Alkaline Phosphatase C-Reactive Protein B-Natriuretic Peptide 568 H Total Protein Albumin Urine Osmolality Ur Random Sodium Vancomycin Trough Random Vancomycin Blood Type Antibody Screen Crossmatch 08/30/23 08/31/23 08/31/23 21:11 06:12 07:14 WBC RBC Hgb Hct MCV MCH MCHC RDW Plt Count MPV Immature Gran % (Auto) Neut % (Auto) Lymph % (Auto) [place] % (Auto) Eos % (Auto) Baso % (Auto) Lymph # (Auto) [place] # (Auto) Eos # (Auto) Baso # (Auto) Abs Immat Gran (auto) Absolute Neuts (auto) Absolute Nucleated RBC Nucleated RBC % (auto) ESR Hold Purple Top Sodium 128 L Potassium 5.3 H Chloride 97 Carbon Dioxide 20 L Anion Gap 16 BUN 36 H Creatinine 1.57 H Estim Creat Clear Calc 28.5 Estimated GFR 32 POC Glucose 153 H 157 H Random Glucose 156 H Osmolality Lactic Acid Calcium 9.1 Total Bilirubin AST ALT Alkaline Phosphatase C-Reactive Protein B-Natriuretic Peptide Total Protein Albumin Urine Osmolality Ur Random Sodium Vancomycin Trough Random Vancomycin Blood Type Antibody Screen Crossmatch Airway Mallampati Class: II TM Dist: >3cm Neck ROM: Full Heart: RRR Lungs: CTA Assessment and Plan Final Anesthetic Review Family History of Problems with Anesthesia: No History of Problems with Anesthesia: No NPO: Yes ASA Class: III Final Preanesthetic Review: Meds/Allgs Chart Reviewed, Consent Obtained/Reviewed and Anes Risks/Benef Reviewed Patient Risk: Intermediate Procedure Risk: Intermediate Anesthetic Plan Anesthetic Plan: MAC: Disposition: Standard PACU
[2023-08-31] MEDS: carvediloL 3.125 MG TABLET PO ×2 (09:05→22:07)
[2023-08-31] MEDS: Furosemide 20 MG/2 ML VIAL IVPUSH ×2 (09:05→18:47)
[2023-08-31] MEDS: amLODIPine Besylate 10 MG TABLET PO (09:06)
[2023-08-31] MEDS: 0.9 % Sodium Chloride Flush 3 ML SYRINGE IVFLUSH ×2 (09:06→15:39)
[2023-08-31] MEDS: Sodium Zirconium Cyclosilicate 10 GM POWD.PACK PO (09:06)
--- NOTE | 2023-08-31 09:39 | PC.NURSE ---
patient is [place] cre[place] speaking. 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 called out to her daughter mayte [phone] for information and translation. voicemail left and awaiting for a call back. patient states she can understand some emirati yoruba. still awaiting call back from daughter.
[2023-08-31 09:48] LABS: Hemoglobin 7.8 g/dl (12.0-16.0)
--- NOTE | 2023-08-31 10:19 | MHC.SHP ---
Pre-Procedural Eval Section A Date of Service: 08/31/23 The patient is an INPATIENT: Yes Changes since office visit: Yes Patient answered all questions The History & Physical has been completed within 30 days and I have reviewed it.: Yes Section B Chief Complaint: Right foot toe discoloration Allergies: Allergies Allergy/AdvReac Type Severity Reaction Status Date / Time penicillin V Allergy Unknown RSH,ITCHY Verified 11/07/22 13:40 Plan I have reviewed the history and physical and performed a pertinent physical examination on my patient. No changes have occurred unless specified. Time Spent With Patient Time: Total time managing care of this patient today ____ minutes.
--- NOTE | 2023-08-31 10:25 | PC.NURSE ---
22G AND 20G IV NO LEAKING FLUSHED NO COMPLAINTS.
--- NOTE | 2023-08-31 11:29 | P.OP_ITS ---
Operative Note Operative Note Date of Service: 08/31/23 Narrative: Operative note by [facility] Preoperative diagnosis:1. Right foot gangrene 2. diabetic foot ulcer Postoperative diagnosis: same Procedure: right transmetatarsal amputation Surgeon:James Puentes M.D. Gallery [employer] Attendant: may Anesthesia: general Specimens: 1 Drains: none Estimated blood loss: 50 mL Indications: 72-year-old female with a history of diabetes and peripheral vascular disease. She has a gangrenous right foot with nonhealing ulcers. This is going down the plantar aspect of the foot as well. She now presents for transmetatarsal amputation. The patient has signed the informed consent after reviewing risks, complications, benefits, and alternatives previously discussed with the patient. The patient was given the opportunity to ask any additional questions or voice any concerns. All questions were answered to the patient's satisfaction. In addition this was discussed with the patients daughter. Consent was obtained with the patients daughter Procedure in detail: patient was brought to the operating room prior to which a time-out was called for patient identification site verification. Right foot was prepped and draped in standard surgical fashion. Curvilinear incision was made over the metatarsal heads and posteriorly a flap was created. Once through the skin and fascia adequate hemostasis was obtained with electrocautery. Once this was done we got through the metatarsal bones. With a power saw. Once this was accomplished posterior flap was then created as we dissected this out. We used electrocautery to obtain hemostasis. Wound was thoroughly irrigated out. Bone edges were filed down. Posterior flap was raised up and reapproximated deep layer with 2-0 Polysorb. Superficial layer with 3-0 poly Sorb. Finally skin with interrupted 2 0 nylon in a mattress fashion. An skin clips were used. Once this was all accomplished patient did have a central area on the posterior flap which was tenuous but did appear to be viable. Sterile dressing was applied. At the end the case sponge Needle and instrument counts were correct. patient was returned to recovery with stable vitals. This note is constructed using voice recognition software. While every effort has been made to ensure accuracy, table machine operator errors may have been included. Thank you for allowing me to participate in the care of your patient. Yours sincerely, James Puentes MD, FACS, R.P.V.I.
[2023-08-31 12:27] LABS: Glucose, Whole Blood 165 mg/dL (60-115)
[2023-08-31] MEDS: oxyCODONE HCl Immed Release 5 MG TABLET PO (12:48)
[2023-08-31] MEDS: Famotidine 20 MG TABLET PO (12:48)
[2023-08-31] MEDS: Aspirin 81 MG TAB.CHEW PO (12:49)
[2023-08-31] MEDS: Clopidogrel Bisulfate 75 MG TABLET PO (12:49)
[2023-08-31] MEDS: Acetaminophen 1,000 MG/100 ML PIGGYBACK 400 MG IV (12:49)
--- NOTE | 2023-08-31 13:13 | HO.PM.IMPN ---
Subjective Subjective Date of Service: 08/31/23 Interval History: possible chf ,also has ginny , multiple electrolytic abnormalities. Review of Systems Denies any shortness of breath this morning Has mild edema No chest pain or abdominal pain Physical Exam Vital Signs: Vital Signs: Last Vital Signs Temp 96.8 F 08/31/23 13:01 Pulse 64 08/31/23 13:01 Resp 16 08/31/23 13:01 BP 173/81 H 08/31/23 13:01 Pulse Ox 96 08/31/23 13:01 O2 Del Method Nasal Cannula 08/31/23 13:01 O2 Flow Rate 2 08/31/23 13:01 BMI result Body Mass Index 33.2 General: AO X 3, no acute distress Resp: CTA bilateral CVS: S1,S2,RRR GI: +BS, NT, no distention,bs present. Skin: no change,trace edema right foot area -similar . Objective Data Active Medications Acetaminophen (Acetaminophen 325 Mg Tablet) 650 mg PO Q6H PRN PRN Reason: Pain, Mild (Pain Scale 1-3) Last Admin: 08/25/23 17:37 Dose: 650 mg Documented By: ADALI Albuterol/Ipratropium (Albuterol/Iprat 2.5/0.5mg 3 Ml Ampul.Neb) 3 ml INHALE Q3H PRN PRN Reason: sob Last Admin: 08/29/23 20:51 Dose: 3 ml Documented By: ROGELIO Albuterol/Ipratropium (Albuterol/Iprat 2.5/0.5mg 3 Ml Ampul.Neb) 3 ml INHALE Q4H [facility] Last Admin: 08/31/23 07:46 Dose: 3 ml Documented By: TONYA Amlodipine Besylate (Amlodipine Besylate 10 Mg Tablet) 10 mg PO DAILY [facility]; Protocol Last Admin: 08/31/23 09:06 Dose: 10 mg Documented By: YANET Aspirin (Aspirin 81 Mg Tab.Chew) 81 mg PO DAILY [facility] Last Admin: 08/31/23 12:49 Dose: 81 mg Documented By: YANET Carvedilol (Carvedilol 3.125 Mg Tablet) 3.125 mg PO BID [facility]; Protocol Last Admin: 08/31/23 09:05 Dose: 3.125 mg Documented By: YANET Clopidogrel Bisulfate (Clopidogrel Bisulfate 75 Mg Tablet) 75 mg PO DAILY [facility] Last Admin: 08/31/23 12:49 Dose: 75 mg Documented By: YANET Dextrose (Dextrose 50 % 25 Gm/50 Ml Syringe) 25 gm IVPUSH Q15M PRN; Protocol PRN Reason: per Hypoglycemia Standing Ord. Docusate Sodium (Docusate Sodium 100 Mg Capsule) 100 mg PO BEDTIME [facility] Last Admin: 08/30/23 20:39 Dose: 100 mg Documented By: KEVAN Famotidine (Famotidine 20 Mg Tablet) 20 mg PO DAILY [facility] Last Admin: 08/31/23 12:48 Dose: 20 mg Documented By: YANET Fentanyl (Fentanyl Citrate/Pf 100 Mcg/2 Ml Vial) 25 mcg IVPUSH Q5M PRN; Protocol PRN Reason: Pain, Moderate(Pain Scale 4-6) Furosemide (Furosemide 20 Mg/2 Ml Vial) 20 mg IVPUSH BID@0900,1800 [facility]; Protocol Last Admin: 08/31/23 09:05 Dose: 20 mg Documented By: YANET Glucose (Glucose Gel 15 Gm Gel..Gram.) 15 gm PO Q15M PRN; Protocol PRN Reason: per Hypoglycemia Standing Ord. Hydralazine HCl (Hydralazine Hcl 20 Mg/Ml Vial) 5 mg IVPUSH Q6H PRN; Protocol PRN Reason: SBP>180 Cefepime HCl 2 gm/ Sodium (Chloride) 50 mls @ 100 mls/hr IV Q12H [facility] Last Infusion: 08/31/23 06:09 Dose: Infused Documented By: KEVAN Metronidazole (Flagyl) 500 mg in 100 mls @ 100 mls/hr IV Q12H [facility] Last Admin: 08/31/23 00:03 Dose: Not Given Documented By: KEVAN Non-Admin Reason: Patient Refused Insulin Glargine (Insulin Glargine,Hum.Rec.Anlog 100 Unit/Ml 10 Ml Vial) 20 unit SUBCUT BEDTIME [facility] Last Admin: 08/30/23 21:27 Dose: Not Given Documented By: KEVAN Non-Admin Reason: giving one lower dose per md Insulin Human Lispro (Insulin Lispro 100 Unit/Ml 3 Ml Vial) 0 unit SUBCUT QIDACHS [facility]; Protocol Last Admin: 08/31/23 07:43 Dose: Not Given Documented By: YANET Non-Admin Reason: No Insulin Coverage Linezolid (Linezolid 600 Mg Tablet) 600 mg PO Q12H [facility] Last Admin: 08/31/23 05:36 Dose: 600 mg Documented By: KEVAN Melatonin (Melatonin 3 Mg Tablet) 6 mg PO BEDTIME PRN PRN Reason: Insomnia Last Admin: 08/28/23 22:42 Dose: 6 mg Documented By: SOFFAA Morphine Sulfate (Morphine Sulfate 4 Mg/Ml Cartridge) 4 mg IVPUSH Q2H PRN; Protocol PRN Reason: Pain, Severe (Pain Scale 7-10) Multivitamins/Vitamin C (Multivitamin Tablet) 1 tab PO DAILY [facility] Last Admin: 08/31/23 09:06 Dose: Not Given Documented By: YANET Non-Admin Reason: NPO Ondansetron HCl (Ondansetron Hcl 4 Mg/2 Ml Vial) 4 mg IVPUSH Q8H PRN PRN Reason: Nausea and Vomiting Ondansetron HCl (Ondansetron Hcl 4 Mg/2 Ml Vial) 4 mg IVPUSH ONCE PRN PRN Reason: Nausea and Vomiting Oxycodone HCl (Oxycodone Hcl Immed Release 5 Mg Tablet) 5 mg PO Q4H PRN PRN Reason: Pain, Moderate(Pain Scale 4-6) Last Admin: 08/31/23 12:48 Dose: 5 mg Documented By: YANET Polyethylene Glycol (Polyethylene Glycol 3350 17 Gm Powd.Pack) 17 gm PO DAILY [facility] Last Admin: 08/31/23 09:54 Dose: Not Given Documented By: YANET Non-Admin Reason: NPO Sodium Chloride (0.9 % Sodium Chloride Flush 3 Ml Syringe) 3 ml IVFLUSH QSHIFT [facility] Last Admin: 08/31/23 09:06 Dose: 3 ml Documented By: YANET Labs 08/31/23 08:19 08/31/23 06:12 Labs: Laboratory Results - last 24 hr 08/28/23 08/30/23 08/30/23 22:28 16:00 16:15 Anion Gap Estim Creat Clear Calc Estimated GFR POC Glucose 124 H Random Glucose Calcium B-Natriuretic Peptide 568 H Crossmatch See Detail 08/30/23 08/31/23 08/31/23 21:11 06:12 07:14 Anion Gap 16 Estim Creat Clear Calc 28.5 Estimated GFR 32 POC Glucose 153 H 157 H Random Glucose 156 H Calcium 9.1 B-Natriuretic Peptide Crossmatch 08/31/23 12:23 Anion Gap Estim Creat Clear Calc Estimated GFR POC Glucose 165 H Random Glucose Calcium B-Natriuretic Peptide Crossmatch Assessment and Plan (1) Acute systolic CHF (congestive heart failure): Status: Acute (2) Cellulitis of foot, right: Status: Acute (3) PAD (peripheral artery disease): Status: Acute Plan 72-year-old female with pertinent history of peripheral arterial disease status left BKA, essential hypertension, insulin-dependent diabetes mellitus who presents to the emergency department for evaluation of right foot toe discoloration, swelling and discharge. Sepsis due to right foot cellulitis, diabetic foot infection with wet gangrene of the 2nd toe vanco trough were in 21.3 range -Vascular will perform angiogram on monday 08/28, and likely TMA to follow -continue IV Cefepime, started 08/24,vanco ,vanco trough 21.3 (stop vanco and changed to linezolid -08/30/23) -follow cultures,going for right transmetatarsal amputation Peripheral arterial disease: Imaging with severe stenosis in the distal right superior femoral artery and occlusion of the distal right posterior tibial artery. Vascular consular s/p angio: s/p right peroneal plasty,sfa plasty. hyponatremia,hyperkalemia ,also possible ginny vs ckd:multifactorial moniter renal function and electrolytes nephro eval-due to multiple electrolytes abnormalities ,also ginny , insetting of cxr -?mild congestion. fluid ristriction-? of siadh ( considering urine osm>serum osm),low potassium diet nephrology is aware ( consulted). posible Chf with reduced ef: Cxr: mild congestion( may be due to received fluids ) BNP is 560 Echo: 1. Moderately reduced LV ejection fraction 35-40% with grade 3 diastolic dysfunction 2. At least mildly dilated left atrium 3. Gmal-eh-dbhcpyxb mitral regurgitation 4. Moderately elevated right ventricular systolic pressure mildly elevated right atrial pressures 5. Trivial pericardial effusion plan: moniter i/o daily weight mild intermittent hypoxia-but does not seem short of breath this morning recieved iv lasix bnp hold on lasix unless clinically worsens cardiology eval Normocytic anemia, likely due to chronic inflammation: Hemoglobin above transfusion threshold. patient keep refusing transfusion h/h remains in 7. family will talk to her for transfusion. Insulin-dependent diabetes mellitus: POC, sliding scale, diabetic diet HTN, on norvasc and lisinopril at home not listed on med rec. Continue Norvasc increase to 10, continue lisinopril 10 and if needed increase to 20 Ckd 3 : cr similar Transaminitis: Due to sepsis, monitor LFTs, hold Lipitor DVT prophylaxis: Lovenox. Need for inpatient: IV Abx for diabetic foot gangrene with sepsis, at risk for limb loss and likely will need amputation, multiple electrolytic abnormalities need renal function monitoring as well as expert consultation, Also need further cardiac workup. Quality Stroke Does the patient have a stroke diagnosis?: No VTE Prior VTE?: No VTE Risk Level:: Medical - moderate - high VTE Device Contraindication: Treatment Not Indicated VTE Drug Contraindication: N/A - Med Ordered
[2023-08-31] MEDS: Insulin Lispro 100 UNIT/ML 3 ML VIAL SUBCUT ×3 (13:20→22:03)
[2023-08-31] MEDS: metroNIDAZOLE/NS 500 MG/100 ML PIGGYBACK 100 MG IV ×2 (13:20→22:09)
[2023-08-31] MEDS: polyethylene glycoL 3350 17 GM POWD.PACK PO (13:27)
[2023-08-31] MEDS: hydrALAZINE HCl 10 MG TABLET PO ×2 (14:40→22:07)
[2023-08-31] MEDS: Isosorbide Mononitrate 30 MG TAB.ER.24H 15 MG PO (14:40)
--- NOTE | 2023-08-31 15:39 | P.CDIM_ITS ---
PROVIDER RESPONSE TEXT: To clarify, the appropriate diagnosis supported by the clinical indicators: Yes, right foot cellulitis is related to / associated with / due to IDDM QUERY TEXT: PHYSICIAN'S DOCUMENTATION REQUEST Date of Query: 08/25/2023 12:01 PM EST Patient Name: ALICIA HOLBROOK Admit Date: 08/25/2023 Dear Leno Fowler, A review of the medical record indicates additional documentation may be needed. Please review below and update the documentation accordingly. Documentation includes the conditions of right foot cellulitis and IDDM. Please clarify the relationship between these conditions: Yes, right foot cellulitis is related to / associated with / due to IDDM No, right foot cellulitis is not related to / associated with / due to IDDM Other (explain) Clinically unable to determine (explain) Thank you, Paula Pizano RN Use of terms such as suspected, likely, concern for, or probable (associated with a specific diagnosi s that is being evaluated, monitored, or treated as if it exists) are acceptable and can be coded in the inpatient se tting, when documented at the time of discharge. Please use your independent medical judgment in providing your response. THIS QUERY IS PART OF THE PERMANENT MEDICAL RECORD
[2023-08-31 16:03] LABS: Glucose, Whole Blood 222 mg/dL (60-115)
[2023-08-31 20:24] LABS: Glucose, Whole Blood 249 mg/dL (60-115)
[2023-08-31] MEDS: Insulin Glargine,Hum.rec.anlog 100 UNIT/ML 10 ML VIAL 20 UNIT SUBCUT (22:03)
[2023-08-31] MEDS: Docusate Sodium 100 MG CAPSULE PO (22:07)
[2023-09-01] VITALS (7 sets, daily range): BP systolic 141–158; BP diastolic 68–76; PULSE 60–88; RESP 14–20; TEMP 36.2–37.1; O2SAT 92–97
--- NOTE | 2023-09-01 04:12 | PM.CNNEP ---
History of Present Illness Reason for Consult Consult date: 08/31/23 Chief Complaint Chief complaint: Right foot toe discoloration History of Present Illness Narrative: 72-year-old female with peripheral arterial disease status S/P left BKA, essential hypertension, insulin-dependent diabetes mellitus among multiple other medical issues presented to the emergency department for evaluation of right foot toe discoloration, swelling and discharge. She was found to have sepsis due to right foot cellulitis, diabetic foot infection with wet gangrene of the 2nd toe. She was treated with vancomycin and its levels were just over 21. She had angiogram on monday 08/28, and likely TMA to follow. Currently on IV Cefepime/ linezolid. She is going for right transmetatarsal amputation. She developed ANNIE and has other electrolyte abnormality including hyponatremia & hyperkalemia. Nephrology has been consulted to assist in her clinical care during her current hospital stay Review of Systems Review of Systems Yes all other systems are reviewed and are negative PMFSH Past Medical History Medical History Acute systolic CHF (congestive heart failure) PAD (peripheral artery disease) Hypertension Essential hypertension Mood disorder Diabetes History of left below knee amputation Surgical History Surgical History History of femoral angiogram History of left below knee amputation Pacemaker Social History Social History Household Members: Family and Children Housing: House Unable to assess alcohol history related to: Unknown Alcohol intake: current Alcohol intake frequency: holidays/special occasions only Patient Tobacco Use Status: Never used Tobacco service: No Current occupational status: retired [employer] Allergies Allergy/AdvReac Type Severity Reaction Status Date / Time penicillin V Allergy Unknown RSH,ITCHY Verified 11/07/22 13:40 Active Medications: Current Medications Acetaminophen (Acetaminophen 325 Mg Tablet) 650 mg PO Q6H PRN PRN Reason: Pain, Mild (Pain Scale 1-3) Last Admin: 08/25/23 17:37 Dose: 650 mg Albuterol/Ipratropium (Albuterol/Iprat 2.5/0.5mg 3 Ml Ampul.Neb) 3 ml INHALE Q3H PRN PRN Reason: sob Last Admin: 08/29/23 20:51 Dose: 3 ml Albuterol/Ipratropium (Albuterol/Iprat 2.5/0.5mg 3 Ml Ampul.Neb) 3 ml INHALE Q4H [facility] Last Admin: 09/01/23 04:04 Dose: Not Given Amlodipine Besylate (Amlodipine Besylate 10 Mg Tablet) 10 mg PO DAILY [facility]; Protocol Last Admin: 08/31/23 09:06 Dose: 10 mg Aspirin (Aspirin 81 Mg Tab.Chew) 81 mg PO DAILY [facility] Last Admin: 08/31/23 12:49 Dose: 81 mg Carvedilol (Carvedilol 3.125 Mg Tablet) 3.125 mg PO BID [facility]; Protocol Last Admin: 08/31/23 22:07 Dose: 3.125 mg Clopidogrel Bisulfate (Clopidogrel Bisulfate 75 Mg Tablet) 75 mg PO DAILY [facility] Last Admin: 08/31/23 12:49 Dose: 75 mg Dextrose (Dextrose 50 % 25 Gm/50 Ml Syringe) 25 gm IVPUSH Q15M PRN; Protocol PRN Reason: per Hypoglycemia Standing Ord. Docusate Sodium (Docusate Sodium 100 Mg Capsule) 100 mg PO BEDTIME [facility] Last Admin: 08/31/23 22:07 Dose: 100 mg Famotidine (Famotidine 20 Mg Tablet) 20 mg PO DAILY [facility] Last Admin: 08/31/23 12:48 Dose: 20 mg Fentanyl (Fentanyl Citrate/Pf 100 Mcg/2 Ml Vial) 25 mcg IVPUSH Q5M PRN; Protocol PRN Reason: Pain, Moderate(Pain Scale 4-6) Furosemide (Furosemide 20 Mg/2 Ml Vial) 20 mg IVPUSH BID@0900,1800 [facility]; Protocol Last Admin: 08/31/23 18:47 Dose: 20 mg Glucose (Glucose Gel 15 Gm Gel..Gram.) 15 gm PO Q15M PRN; Protocol PRN Reason: per Hypoglycemia Standing Ord. Hydralazine HCl (Hydralazine Hcl 20 Mg/Ml Vial) 5 mg IVPUSH Q6H PRN; Protocol PRN Reason: SBP>180 Hydralazine HCl (Hydralazine Hcl 10 Mg Tablet) 10 mg PO BID [facility]; Protocol Last Admin: 08/31/23 22:07 Dose: 10 mg Cefepime HCl 2 gm/ Sodium (Chloride) 50 mls @ 100 mls/hr IV Q12H [facility] Last Infusion: 08/31/23 19:41 Dose: Infused Metronidazole (Flagyl) 500 mg in 100 mls @ 100 mls/hr IV Q12H [facility] Last Infusion: 08/31/23 23:28 Dose: Infused Insulin Glargine (Insulin Glargine,Hum.Rec.Anlog 100 Unit/Ml 10 Ml Vial) 20 unit SUBCUT BEDTIME [facility] Last Admin: 08/31/23 22:03 Dose: 20 unit Insulin Human Lispro (Insulin Lispro 100 Unit/Ml 3 Ml Vial) 0 unit SUBCUT QIDACHS [facility]; Protocol Last Admin: 08/31/23 22:03 Dose: 4 unit Isosorbide Mononitrate (Isosorbide Mononitrate 30 Mg Tab.Er.24h) 15 mg PO DAILY [facility]; Protocol Last Admin: 08/31/23 14:40 Dose: 15 mg Linezolid (Linezolid 600 Mg Tablet) 600 mg PO Q12H [facility] Last Admin: 08/31/23 16:54 Dose: 600 mg Melatonin (Melatonin 3 Mg Tablet) 6 mg PO BEDTIME PRN PRN Reason: Insomnia Last Admin: 08/28/23 22:42 Dose: 6 mg Morphine Sulfate (Morphine Sulfate 4 Mg/Ml Cartridge) 4 mg IVPUSH Q2H PRN; Protocol PRN Reason: Pain, Severe (Pain Scale 7-10) Multivitamins/Vitamin C (Multivitamin Tablet) 1 tab PO DAILY [facility] Last Admin: 08/31/23 09:06 Dose: Not Given Ondansetron HCl (Ondansetron Hcl 4 Mg/2 Ml Vial) 4 mg IVPUSH Q8H PRN PRN Reason: Nausea and Vomiting Ondansetron HCl (Ondansetron Hcl 4 Mg/2 Ml Vial) 4 mg IVPUSH ONCE PRN PRN Reason: Nausea and Vomiting Oxycodone HCl (Oxycodone Hcl Immed Release 5 Mg Tablet) 5 mg PO Q4H PRN PRN Reason: Pain, Moderate(Pain Scale 4-6) Last Admin: 08/31/23 12:48 Dose: 5 mg Polyethylene Glycol (Polyethylene Glycol 3350 17 Gm Powd.Pack) 17 gm PO DAILY [facility] Last Admin: 08/31/23 13:27 Dose: 17 gm Sodium Chloride (0.9 % Sodium Chloride Flush 3 Ml Syringe) 3 ml IVFLUSH QSHIFT [facility] Last Admin: 09/01/23 00:15 Dose: Not Given Home Medications Medication Instructions Recorded Confirmed Last Taken Type blood sugar diagnostic #10 ea 06/11/20 Unknown History insulin aspart U-100 100 unit/mL 20 unit subcut TIDAC 06/11/20 08/24/23 Unknown History (3 mL) subcutaneous pen lancets 28 gauge #100 ea 06/11/20 Unknown History pen needle, diabetic 31 gauge x #50 ea 06/11/20 Unknown History /4 insulin degludec 200 unit/mL (3 60 unit subcut BEDTIME 07/20/21 08/24/23 Unknown History mL) subcutaneous pen (Tresiba FlexTouch U-200 insulin) pen needle, diabetic 31 gauge x #50 ea 07/20/21 Unknown History aspirin 81 mg chewable tablet 81 mg PO DAILY 10/22/22 08/24/23 Unknown History multivitamin 1 tab PO DAILY 08/24/23 08/24/23 Unknown History Physical Exam Vital Signs: Last Vital Signs Temp 97.1 F 09/01/23 03:36 Pulse 60 09/01/23 03:36 Resp 17 09/01/23 03:36 BP 141/76 H 09/01/23 03:36 Pulse Ox 94 09/01/23 03:36 O2 Del Method Room Air 09/01/23 03:36 O2 Flow Rate 2 08/31/23 14:31 BMI result Body Mass Index 33.2 Const General: no acute distress Orientation/consciousness: patient oriented x3 HEENT Head: Yes normocephalic Mouth: Normal oral and palatal mucosa present Eyes EOM: EOMs intact bilaterally Neck Neck: Yes supple Resp Auscultation: diminished lung sounds Cardio Rate: regular rate GI Palpation (GI): Soft to palpation Auscultation: normal bowel sounds General: Yes no CVA tenderness Back/Spine/Pelvis Back: no CVA tenderness Skin General skin exam: no rashes or lesions noted Neuro General: patient oriented x3 Extrem Other: L BKA Results Lab Results 08/31/23 08:19 08/31/23 06:12 Lab results: Chemistry 08/29/23 08/30/23 08/31/23 05:54 05:31 06:12 Sodium 132 L 130 L 128 L Potassium 5.5 H 5.4 H 5.3 H Carbon Dioxide 22 20 L 20 L BUN 25 H 27 H 36 H Creatinine 1.38 1.51 H 1.57 H Calcium 8.7 8.9 9.1 Hematology 08/29/23 08/30/23 08/30/23 05:54 05:31 09:56 WBC 11.6 H 10.6 Hgb 7.2 L 7.2 L 7.4 L Plt Count 372 388 08/31/23 08:19 WBC Hgb 7.8 L Plt Count Assessment and Plan (1) Acute kidney injury: Status: Acute (2) Hyperkalemia: Status: Acute (3) Hyponatremia: Status: Acute Plan Belkys has acute kidney injury on a backdrop of chronic kidney disease, due to sepsis as well as contrast from angiography. She also has heart failure. Her vancomycin levels have been high and had been discontinued. Her CKD is likely from vascular disease. I ordered cortisol level. She needs diuresis. There is no reason to suspect [place] infectious glomerulonephritis or AIN. Her urine output is good and it is unlikely that she has obstructive uropathy. I will continue her current medications for now and will initiate diuresis. There is no indication for any renal replacement therapy. If her serum creatinine goes up we would do more necessary investigations. Further management is pending involving data. Procedures Date of Service Date of Service: 09/01/23
[2023-09-01] MEDS: Linezolid 600 MG TABLET PO ×2 (05:06→16:41)
[2023-09-01 06:46] LABS: Hematocrit 22.8 % (37.0-47.0); Hemoglobin 7.4 g/dl (12.0-16.0); Mean Corpuscular HGB Conc 32.5 g/dl (31.0-35.0); Mean Corpuscular Hemoglobin 25.6 pg (27.0-33.0); Mean Corpuscular Volume 78.9 fL (80.0-98.0); Mean Platelet Volume 9.7 fL (9.4-12.3); Platelet Count 507 X10*3/uL (160-400); Red Blood Count 2.89 X10*6/uL (4.20-5.50); Red Cell Distribution Width 14.4 % (11.0-16.0); White Blood Count 10.8 X10*3/uL (4.8-10.8)
[2023-09-01 06:56] LABS: Anion Gap 14 (12-20); Blood Urea Nitrogen 49 mg/dL (9-16); Calcium 8.4 mg/dL (8.4-10.2); Carbon Dioxide 19 mmol/L (22-29); Chloride 97 mmol/L (96-108); Creatinine Clr Calc Pharmacy 25.7; Estimated Glomerular Filt Rate 29; Glucose Random 112 mg/dL (60-115); Potassium 4.8 mmol/L (3.3-5.1); Sodium 125 mmol/L (135-145)
[2023-09-01 07:07] LABS: Vancomycin Random 15.4 mcg/mL (15-20)
[2023-09-01 07:17] LABS: Glucose, Whole Blood 106 mg/dL (60-115)
[2023-09-01 07:18] LABS: Cortisol Random 13.9 ug/dL
[2023-09-01] MEDS: Albuterol/Iprat 2.5/0.5MG 3 ML AMPUL.NEB INHALE ×3 (08:02→20:54)
[2023-09-01] MEDS: 0.9 % Sodium Chloride Flush 3 ML SYRINGE IVFLUSH ×3 (09:09→21:37)
--- NOTE | 2023-09-01 09:41 | HO.VASCPN ---
Subjective Subjective Date of Service: 09/01/23 Patient reports: no new complaints and feels better Interval history: Very pleasant 72-year-old [place] female presents for follow-up status post transmetatarsal amputation. She is postop day 1 appears to be doing relatively well. Denies any significant pain. Now for routine postprocedure follow-up. Physical Exam Vital Signs: Vital Signs: Last Vital Signs Temp 97.4 F 09/01/23 07:33 Pulse 72 09/01/23 08:04 Resp 20 09/01/23 08:04 BP 142/68 H 09/01/23 07:33 Pulse Ox 92 09/01/23 07:33 O2 Del Method Room Air 09/01/23 07:33 O2 Flow Rate 2 08/31/23 14:31 BMI result Body Mass Index 33.2 Const: General: cooperative, healthy appearing and no acute distress Orientation/consciousness: oriented to person, oriented to place and oriented to time HEENT: Head: Yes normal to inspection Neck: Carotids: no bruits Chest: Chest palpation & inspection: normal inspection of the chest Resp: Effort & Inspection: normal respiratory effort and able to speak in complete sentences Auscultation: clear to auscultation bilaterally Cardio: Rate: regular rate Heart sounds: S1 normal heart sound present and S2 normal heart sound present GI: Inspection: Yes normal to inspection Skin: Other: Right trans met dressing changed. Central portion is tenuous there is discoloration but lateral aspects of the flap appeared to have excellent take. General skin exam: no rashes or lesions noted Wounds: no wounds Neuro: General: oriented to person, oriented to place, oriented to time and CN's II-XI intact bilaterally Extrem: General: Yes normal to inspection, Yes full ROM and Yes no clubbing, cyanosis or edema Psych: Appearance: grossly normal and well kempt Speech and movement: Normal speech and movement present Affect: normal affect Progress Note: A&P Assessment and plan (1) PAD (peripheral artery disease): Status: Acute Assessment and Plan: In short patient appears to be doing relatively well status post transmetatarsal amputation. The concern is the central portion which was known before because she did have some plantar aspect ulcerations appears to be tenuous. The lateral aspects of the flap appeared to have good to uptake. I have written for routine dressing care. She can follow up with me in approximately 2 weeks time for suture and staple removal. While in hospital would continue antibiotics. Upon discharge would place her on Keflex 500 mg b.i.d. for 10 days. Thank you for allowing us to assist in her care. If there are any questions or concerns please do not hesitate to contact us. Time Spent With Patient Time: Total time managing care of this patient today ____ minutes. Procedures Date of Service Date of Service: 09/01/23 Quality Stroke Does the patient have a stroke diagnosis?: No VTE Prior VTE?: No VTE Risk Level:: Medical - moderate - high VTE Device Contraindication: Treatment Not Indicated VTE Drug Contraindication: N/A - Med Ordered
--- NOTE | 2023-09-01 10:16 | PM.CNCAR ---
History of Present Illness History of Present Illness Date of Service: 09/01/23 Requesting physician: Hunter Manzanares Consult reason: congestive heart failure Chief complaint: Right foot toe discoloration Narrative: I was consulted to see Belkys in cardiology consultation today for congestive heart failure. Patient is a poor historian does not much about her past medical history. History obtained from the chart. Patient has a dual-chamber pacemaker of unclear company. Patient admitted with right foot cellulitis and sepsis, underwent transmetatarsal amputation yesterday. Has left below-knee amputation from before. Has peripheral vascular disease. Underwent peripheral vascular plasty on August 28. Following that she developed acute shortness of breath consistent with congestive heart failure. Was diuresed. Echocardiogram done shows moderately reduced LV ejection fraction 35-40%. Cardiology consult was sought for further management plan. Currently on amlodipine, started on low-dose hydralazine isosorbide as well as on carvedilol. Patient denies any shortness of breath currently. Denies any significant leg edema. Noted that her sodium is gradually downtrending. Also noted to have acute kidney injury. Currently denying any chest pain. Denies any prior coronary artery disease. Does not recall who follows up pacemaker. Review of Systems Constitutional: Constitutional: Reports weakness Eyes: Eyes: Reports no additional eye complaints Cardiovascular: Cardiovascular: Reports no additional cardiovascular complaints Respiratory: Respiratory: Reports no additional respiratory complaints Gastrointestinal: Gastrointestinal: Reports no additional gastrointestinal complaints Musculoskeletal: Musculoskeletal: Reports other (Pain at the surgical site) Neurologic: Reports system reviewed and no additional complaints, except as documented and Reports weakness Psychiatric: Psychiatric: Reports no additional psychiatric complaints [facility] Past Medical History Medical History Acute systolic CHF (congestive heart failure) PAD (peripheral artery disease) Hypertension Essential hypertension Mood disorder Diabetes History of left below knee amputation Surgical History Surgical History History of femoral angiogram History of left below knee amputation Pacemaker Social History Social History Household Members: Family and Children Housing: House Unable to assess alcohol history related to: Unknown Alcohol intake: current Alcohol intake frequency: holidays/special occasions only Patient Tobacco Use Status: Never used Tobacco service: No Current occupational status: retired Meds Allergies Allergy/AdvReac Type Severity Reaction Status Date / Time penicillin V Allergy Unknown RSH,ITCHY Verified 11/07/22 13:40 Active Medications: Current Medications Acetaminophen (Acetaminophen 325 Mg Tablet) 650 mg PO Q6H PRN PRN Reason: Pain, Mild (Pain Scale 1-3) Last Admin: 08/25/23 17:37 Dose: 650 mg Albuterol/Ipratropium (Albuterol/Iprat 2.5/0.5mg 3 Ml Ampul.Neb) 3 ml INHALE Q3H PRN PRN Reason: sob Last Admin: 08/29/23 20:51 Dose: 3 ml Albuterol/Ipratropium (Albuterol/Iprat 2.5/0.5mg 3 Ml Ampul.Neb) 3 ml INHALE Q4H [facility] Last Admin: 09/01/23 08:02 Dose: 3 ml Amlodipine Besylate (Amlodipine Besylate 10 Mg Tablet) 10 mg PO DAILY [facility]; Protocol Last Admin: 08/31/23 09:06 Dose: 10 mg Aspirin (Aspirin 81 Mg Tab.Chew) 81 mg PO DAILY [facility] Last Admin: 08/31/23 12:49 Dose: 81 mg Carvedilol (Carvedilol 3.125 Mg Tablet) 3.125 mg PO BID [facility]; Protocol Last Admin: 08/31/23 22:07 Dose: 3.125 mg Clopidogrel Bisulfate (Clopidogrel Bisulfate 75 Mg Tablet) 75 mg PO DAILY [facility] Last Admin: 08/31/23 12:49 Dose: 75 mg Dextrose (Dextrose 50 % 25 Gm/50 Ml Syringe) 25 gm IVPUSH Q15M PRN; Protocol PRN Reason: per Hypoglycemia Standing Ord. Docusate Sodium (Docusate Sodium 100 Mg Capsule) 100 mg PO BEDTIME [facility] Last Admin: 08/31/23 22:07 Dose: 100 mg Famotidine (Famotidine 20 Mg Tablet) 20 mg PO DAILY [facility] Last Admin: 08/31/23 12:48 Dose: 20 mg Fentanyl (Fentanyl Citrate/Pf 100 Mcg/2 Ml Vial) 25 mcg IVPUSH Q5M PRN; Protocol PRN Reason: Pain, Moderate(Pain Scale 4-6) Glucose (Glucose Gel 15 Gm Gel..Gram.) 15 gm PO Q15M PRN; Protocol PRN Reason: per Hypoglycemia Standing Ord. Hydralazine HCl (Hydralazine Hcl 20 Mg/Ml Vial) 5 mg IVPUSH Q6H PRN; Protocol PRN Reason: SBP>180 Hydralazine HCl (Hydralazine Hcl 10 Mg Tablet) 10 mg PO BID [facility]; Protocol Last Admin: 08/31/23 22:07 Dose: 10 mg Cefepime HCl 2 gm/ Sodium (Chloride) 50 mls @ 100 mls/hr IV Q12H [facility] Last Infusion: 09/01/23 05:53 Dose: Infused Metronidazole (Flagyl) 500 mg in 100 mls @ 100 mls/hr IV Q12H [facility] Last Infusion: 08/31/23 23:28 Dose: Infused Insulin Glargine (Insulin Glargine,Hum.Rec.Anlog 100 Unit/Ml 10 Ml Vial) 20 unit SUBCUT BEDTIME [facility] Last Admin: 08/31/23 22:03 Dose: 20 unit Insulin Human Lispro (Insulin Lispro 100 Unit/Ml 3 Ml Vial) 0 unit SUBCUT QIDACHS [facility]; Protocol Last Admin: 09/01/23 07:18 Dose: Not Given Isosorbide Mononitrate (Isosorbide Mononitrate 30 Mg Tab.Er.24h) 15 mg PO DAILY [facility]; Protocol Last Admin: 08/31/23 14:40 Dose: 15 mg Linezolid (Linezolid 600 Mg Tablet) 600 mg PO Q12H [facility] Last Admin: 09/01/23 05:06 Dose: 600 mg Melatonin (Melatonin 3 Mg Tablet) 6 mg PO BEDTIME PRN PRN Reason: Insomnia Last Admin: 08/28/23 22:42 Dose: 6 mg Morphine Sulfate (Morphine Sulfate 4 Mg/Ml Cartridge) 4 mg IVPUSH Q2H PRN; Protocol PRN Reason: Pain, Severe (Pain Scale 7-10) Multivitamins/Vitamin C (Multivitamin Tablet) 1 tab PO DAILY [facility] Last Admin: 08/31/23 09:06 Dose: Not Given Ondansetron HCl (Ondansetron Hcl 4 Mg/2 Ml Vial) 4 mg IVPUSH Q8H PRN PRN Reason: Nausea and Vomiting Ondansetron HCl (Ondansetron Hcl 4 Mg/2 Ml Vial) 4 mg IVPUSH ONCE PRN PRN Reason: Nausea and Vomiting Oxycodone HCl (Oxycodone Hcl Immed Release 5 Mg Tablet) 5 mg PO Q4H PRN PRN Reason: Pain, Moderate(Pain Scale 4-6) Last Admin: 08/31/23 12:48 Dose: 5 mg Polyethylene Glycol (Polyethylene Glycol 3350 17 Gm Powd.Pack) 17 gm PO DAILY [facility] Last Admin: 08/31/23 13:27 Dose: 17 gm Sodium Chloride (0.9 % Sodium Chloride Flush 3 Ml Syringe) 3 ml IVFLUSH QSHIFT [facility] Last Admin: 09/01/23 09:09 Dose: 3 ml Home Medications Medication Instructions Recorded Confirmed Last Taken Type blood sugar diagnostic #10 ea 06/11/20 Unknown History insulin aspart U-100 100 unit/mL 20 unit subcut TIDAC 06/11/20 08/24/23 Unknown History (3 mL) subcutaneous pen lancets 28 gauge #100 ea 06/11/20 Unknown History pen needle, diabetic 31 gauge x #50 ea 06/11/20 Unknown History / insulin degludec 200 unit/mL (3 60 unit subcut BEDTIME 07/20/21 08/24/23 Unknown History mL) subcutaneous pen (Tresiba FlexTouch U-200 insulin) pen needle, diabetic 31 gauge x #50 ea 07/20/21 Unknown History aspirin 81 mg chewable tablet 81 mg PO DAILY 10/22/22 08/24/23 Unknown History multivitamin 1 tab PO DAILY 08/24/23 08/24/23 Unknown History Physical Exam Vital Signs: Vital Signs: Last Vital Signs Temp 97.4 F 09/01/23 07:33 Pulse 72 09/01/23 08:04 Resp 20 09/01/23 08:04 BP 142/68 H 09/01/23 07:33 Pulse Ox 92 09/01/23 07:33 O2 Del Method Room Air 09/01/23 07:33 O2 Flow Rate 2 08/31/23 14:31 BMI result Body Mass Index 33.2 Const: General: cooperative, comfortable, no acute distress, alert and awake Nutritional Appearance: overweight Orientation/consciousness: patient oriented x3 HEENT: Head: Yes normocephalic and Yes atraumatic Neck: Neck: Yes trachea midline, Yes supple and Yes no JVD Resp: Effort & Inspection: normal respiratory effort Auscultation: clear to auscultation bilaterally Cardio: Jugular venous distension: no JVD and other (Pacemaker pocket is benign) Rate: regular rate Rhythm: regular rhythm Heart sounds: S1 normal heart sound present, S2 normal heart sound present, no click, no gallops, no murmurs and no rubs GI: Auscultation: normal bowel sounds Skin: General skin exam: no rashes or lesions noted Neuro: General: patient oriented x3 and no focal motor deficits Extrem: General: Yes no clubbing, cyanosis or edema Objective Labs and Meds 09/01/23 05:50 09/01/23 05:51 Lab results: Laboratory Results - last 24 hr 08/28/23 08/31/23 08/31/23 22:28 12:23 15:59 WBC RBC Hgb Hct MCV MCH MCHC RDW Plt Count MPV Absolute Nucleated RBC Nucleated RBC % (auto) Sodium Potassium Chloride Carbon Dioxide Anion Gap BUN Creatinine Estim Creat Clear Calc Estimated GFR POC Glucose 165 H 222 H Random Glucose Calcium Random Cortisol Random Vancomycin Crossmatch See Detail 08/31/23 09/01/23 09/01/23 20:20 05:50 05:51 WBC 10.8 RBC 2.89 L Hgb 7.4 L Hct 22.8 L MCV 78.9 L MCH 25.6 L MCHC 32.5 RDW 14.4 Plt Count 507 H D MPV 9.7 Absolute Nucleated RBC 0.000 Nucleated RBC % (auto) 0.0 Sodium 125 L Potassium 4.8 Chloride 97 Carbon Dioxide 19 L Anion Gap 14 BUN 49 H Creatinine 1.74 H Estim Creat Clear Calc 25.7 Estimated GFR 29 POC Glucose 249 H Random Glucose 112 Calcium 8.4 D Random Cortisol 13.9 Random Vancomycin 15.4 Crossmatch 09/01/23 07:13 WBC RBC Hgb Hct MCV MCH MCHC RDW Plt Count MPV Absolute Nucleated RBC Nucleated RBC % (auto) Sodium Potassium Chloride Carbon Dioxide Anion Gap BUN Creatinine Estim Creat Clear Calc Estimated GFR POC Glucose 106 Random Glucose Calcium Random Cortisol Random Vancomycin Crossmatch EKG shows ventricular paced rhythm with intermittent atrial sense and atrial paced rhythm. Assessment and Plan (1) Acute systolic CHF (congestive heart failure): Status: Acute Acute systolic congestive heart failure postoperatively, currently doing well. Multiple negative prognostic predictors including chronic kidney disease, diabetes, development of hyponatremia and ANNIE, poor compliance, poor functional status overall. Patient currently appears to be euvolemic. Will switch her to p.o. Lasix to maintain euvolemia. Heart failure education to be provided. Daily weight monitoring avoidance of salt loading. Given her chronic kidney disease and ANNIE I would avoid renin angiotensin antagonist. Maximize hydralazine and isosorbide. Can discontinue amlodipine therapy. Also maximize Coreg. Given her elevated creatinine and mild hyperkalemia would avoid spironolactone therapy at this point in time. She has gradually developed hyponatremia and this should be pursued aggressively. She will require outpatient ischemic workup given that she has peripheral vascular disease and multiple risk factors for obstructive coronary artery disease in development of myocardial ischemia. Could also be related to RV pacing constantly and may need an upgrade to cardiac resynchronization therapy if there is no significant ischemia. Will sign of the case today and follow-up with her operational assistant as outpatient Procedures Date of Service Date of Service: 09/01/23
[2023-09-01 10:59] LABS: Glucose, Whole Blood 213 mg/dL (60-115)
[2023-09-01] MEDS: Insulin Lispro 100 UNIT/ML 3 ML VIAL SUBCUT ×3 (11:32→21:39)
[2023-09-01] MEDS: Furosemide 20 MG/2 ML VIAL IVPUSH (11:33)
[2023-09-01] MEDS: metroNIDAZOLE/NS 500 MG/100 ML PIGGYBACK 100 MG IV ×2 (11:33→22:55)
[2023-09-01] MEDS: polyethylene glycoL 3350 17 GM POWD.PACK PO (12:06)
[2023-09-01] MEDS: carvediloL 3.125 MG TABLET PO ×2 (12:10→21:40)
[2023-09-01] MEDS: Clopidogrel Bisulfate 75 MG TABLET PO (12:10)
[2023-09-01] MEDS: Aspirin 81 MG TAB.CHEW PO (12:10)
--- NOTE | 2023-09-01 13:27 | MHC.CM.PN ---
Addendum entered by Edwige Rosario RN 09/01/23 13:33: PER PATIENT'S FAMILY PATIENT DOES NOT HAVE A PCP. Original Note: EMR REVIEWED. PATIENT IS S/P TRANSMETATARSAL AMP, POD #1. DECLINED PT EVAL TODAY D/T PAIN. PLAN FOR PT EVAL TOMORROW. CM WILL CONTINUE TO FOLLOW.
--- NOTE | 2023-09-01 13:45 | P.PNNP_ITS ---
Subjective Subjective Date of Service: 09/01/23 Interval history: Seen this morning. All recent data reviewed. Discussed with the hospitalist Physical Exam 2 Vital Signs: Vital Signs: Last Vital Signs Temp 97.4 F 09/01/23 07:33 Pulse 78 09/01/23 12:17 Resp 20 09/01/23 12:17 BP 142/68 H 09/01/23 07:33 Pulse Ox 92 09/01/23 07:33 O2 Del Method Room Air 09/01/23 07:33 O2 Flow Rate 2 08/31/23 14:31 BMI result Body Mass Index 33.2 Const: General: comfortable and no acute distress O rientation/consciousness: patient oriented x3 HEENT: Head: Yes normocephalic Mouth: Normal oral and palatal mucosa present Eyes: EOM: EOMs intact bilaterally Neck: Neck: Yes supple Resp: Auscultation: diminished lung sounds Cardio: Jugular venous distension: no JVD Rate: regular rate Heart sounds: Murmur heart sound present GI: Palpation (GI): Soft to palpation Auscultation: normal bowel sounds : General: Yes no CVA tenderness Back/Spine/Pelvis: Back: no CVA tenderness Skin: General skin exam: no rashes or lesions noted Neuro: General: patient oriented x3 and moves all extremities Objective Data Labs 09/01/23 05:50 09/01/23 05:51 Labs: Laboratory Results - last 24 hr 08/31/23 08/31/23 09/01/23 15:59 20:20 05:50 WBC 10.8 RBC 2.89 L Hgb 7.4 L Hct 22.8 L MCV 78.9 L MCH 25.6 L MCHC 32.5 RDW 14.4 Plt Count 507 H D MPV 9.7 Absolute Nucleated RBC 0.000 Nucleated RBC % (auto) 0.0 Sodium Potassium Chloride Carbon Dioxide Anion Gap BUN Creatinine Estim Creat Clear Calc Estimated GFR POC Glucose 222 H 249 H Random Glucose Calcium Random Cortisol Random Vancomycin 15.4 09/01/23 09/01/23 09/01/23 05:51 07:13 10:55 WBC RBC Hgb Hct MCV MCH MCHC RDW Plt Count MPV Absolute Nucleated RBC Nucleated RBC % (auto) Sodium 125 L Potassium 4.8 Chloride 97 Carbon Dioxide 19 L Anion Gap 14 BUN 49 H Creatinine 1.74 H Estim Creat Clear Calc 25.7 Estimated GFR 29 POC Glucose 106 213 H Random Glucose 112 Calcium 8.4 D Random Cortisol 13.9 Random Vancomycin Microbiology Microbiology Results: Microbiology 08/24/23 14:32 Blood - Venous Blood Culture - Final No growth after 5 days. 08/24/23 14:33 Blood - Venous Blood Culture - Final No growth after 5 days. Procedures Date of Service Date of Service: 09/01/23 Assessment & Plan Assessment and plan (1) Acute kidney injury: Status: Acute (2) Hyponatremia: Status: Acute (3) Hyperkalemia: Status: Acute (4) Essential hypertension: Status: Acute Plan Belkys has acute kidney injury on a backdrop of chronic kidney disease, due to sepsis as well as contrast from angiography. She also has heart failure. Her vancomycin levels have been high and had been discontinued. Her CKD is likely from vascular disease. cortisol level pending. She needs diuresis. There is no reason to suspect [place] infectious glomerulonephritis or AIN. Her urine output is good and it is unlikely that she has obstructive uropathy. I will continue her her rest of her current medications for now . There is no indication for any renal replacement therapy. If her serum creatinine goes up we would do more necessary investigations. Further management is pending involving data Progress Note: Quality Stroke Does the patient have a stroke diagnosis?: No
--- NOTE | 2023-09-01 14:26 | P.PNIM_ITS ---
Subjective Subjective Date of Service: 09/02/23 Interval History: possible chf ,also has ginny , multiple electrolytic abnormalities. Review of Systems Denies any shortness of breath this morning Has mild edema No chest pain or abdominal pain Physical Exam 2 Vital Signs: Vital Signs: Last Vital Signs Temp 97.4 F 09/01/23 07:33 Pulse 78 09/01/23 12:17 Resp 20 09/01/23 12:17 BP 142/68 H 09/01/23 07:33 Pulse Ox 92 09/01/23 07:33 O2 Del Method Room Air 09/01/23 07:33 O2 Flow Rate 2 08/31/23 14:31 BMI result Body Mass Index 33.2 General: AO X 3, no acute distress Resp: CTA bilateral CVS: S1,S2,RRR GI: +BS, NT, no distention,bs present. Skin: no change,trace edema right foot area -similar . Objective Data Active Medications Acetaminophen (Acetaminophen 325 Mg Tablet) 650 mg PO Q6H PRN PRN Reason: Pain, Mild (Pain Scale 1-3) Last Admin: 08/25/23 17:37 Dose: 650 mg Documented By: ADALI Albuterol/Ipratropium (Albuterol/Iprat 2.5/0.5mg 3 Ml Ampul.Neb) 3 ml INHALE Q3H PRN PRN Reason: sob Last Admin: 08/29/23 20:51 Dose: 3 ml Documented By: ROGELIO Albuterol/Ipratropium (Albuterol/Iprat 2.5/0.5mg 3 Ml Ampul.Neb) 3 ml INHALE Q4H [facility] Last Admin: 09/01/23 12:15 Dose: 3 ml Documented By: TONYA Aspirin (Aspirin 81 Mg Tab.Chew) 81 mg PO DAILY [facility] Last Admin: 09/01/23 12:10 Dose: 81 mg Documented By: MAGGY Carvedilol (Carvedilol 3.125 Mg Tablet) 3.125 mg PO BID [facility]; Protocol Last Admin: 09/01/23 12:10 Dose: 3.125 mg Documented By: MAGGY Clopidogrel Bisulfate (Clopidogrel Bisulfate 75 Mg Tablet) 75 mg PO DAILY [facility] Last Admin: 09/01/23 12:10 Dose: 75 mg Documented By: MAGGY Dextrose (Dextrose 50 % 25 Gm/50 Ml Syringe) 25 gm IVPUSH Q15M PRN; Protocol PRN Reason: per Hypoglycemia Standing Ord. Docusate Sodium (Docusate Sodium 100 Mg Capsule) 100 mg PO BEDTIME [facility] Last Admin: 08/31/23 22:07 Dose: 100 mg Documented By: NARAYAN Famotidine (Famotidine 20 Mg Tablet) 20 mg PO DAILY [facility] Last Admin: 09/01/23 12:10 Dose: Not Given Documented By: MAGGY Non-Admin Reason: Patient Refused Fentanyl (Fentanyl Citrate/Pf 100 Mcg/2 Ml Vial) 25 mcg IVPUSH Q5M PRN; Protocol PRN Reason: Pain, Moderate(Pain Scale 4-6) Glucose (Glucose Gel 15 Gm Gel..Gram.) 15 gm PO Q15M PRN; Protocol PRN Reason: per Hypoglycemia Standing Ord. Hydralazine HCl (Hydralazine Hcl 20 Mg/Ml Vial) 5 mg IVPUSH Q6H PRN; Protocol PRN Reason: SBP>180 Hydralazine HCl (Hydralazine Hcl 25 Mg Tablet) 25 mg PO BID [facility]; Protocol Cefepime HCl 2 gm/ Sodium (Chloride) 50 mls @ 100 mls/hr IV Q12H [facility] Last Infusion: 09/01/23 05:53 Dose: Infused Documented By: NARAYAN Metronidazole (Flagyl) 500 mg in 100 mls @ 100 mls/hr IV Q12H [facility] Last Infusion: 09/01/23 12:34 Dose: Infused Documented By: MAGGY Insulin Glargine (Insulin Glargine,Hum.Rec.Anlog 100 Unit/Ml 10 Ml Vial) 20 unit SUBCUT BEDTIME [facility] Last Admin: 08/31/23 22:03 Dose: 20 unit Documented By: NARAYAN Insulin Human Lispro (Insulin Lispro 100 Unit/Ml 3 Ml Vial) 0 unit SUBCUT QIDACHS [facility]; Protocol Last Admin: 09/01/23 11:32 Dose: 1 unit Documented By: MAGGY Isosorbide Mononitrate (Isosorbide Mononitrate 30 Mg Tab.Er.24h) 30 mg PO DAILY [facility]; Protocol Linezolid (Linezolid 600 Mg Tablet) 600 mg PO Q12H [facility] Last Admin: 09/01/23 05:06 Dose: 600 mg Documented By: NARAYAN Melatonin (Melatonin 3 Mg Tablet) 6 mg PO BEDTIME PRN PRN Reason: Insomnia Last Admin: 08/28/23 22:42 Dose: 6 mg Documented By: JOHNNY Morphine Sulfate (Morphine Sulfate 4 Mg/Ml Cartridge) 4 mg IVPUSH Q2H PRN; Protocol PRN Reason: Pain, Severe (Pain Scale 7-10) Multivitamins/Vitamin C (Multivitamin Tablet) 1 tab PO DAILY [facility] Last Admin: 09/01/23 12:10 Dose: Not Given Documented By: MAGGY Non-Admin Reason: Patient Refused Ondansetron HCl (Ondansetron Hcl 4 Mg/2 Ml Vial) 4 mg IVPUSH Q8H PRN PRN Reason: Nausea and Vomiting Ondansetron HCl (Ondansetron Hcl 4 Mg/2 Ml Vial) 4 mg IVPUSH ONCE PRN PRN Reason: Nausea and Vomiting Oxycodone HCl (Oxycodone Hcl Immed Release 5 Mg Tablet) 5 mg PO Q4H PRN PRN Reason: Pain, Moderate(Pain Scale 4-6) Last Admin: 08/31/23 12:48 Dose: 5 mg Documented By: YANET Polyethylene Glycol (Polyethylene Glycol 3350 17 Gm Powd.Pack) 17 gm PO DAILY [facility] Last Admin: 09/01/23 12:06 Dose: 17 gm Documented By: MAGGY Sodium Chloride (0.9 % Sodium Chloride Flush 3 Ml Syringe) 3 ml IVFLUSH QSHIFT [facility] Last Admin: 09/01/23 09:09 Dose: 3 ml Documented By: MAGGY Labs 09/01/23 05:50 09/02/23 07:57 Labs: Laboratory Results - last 24 hr 08/31/23 08/31/23 09/01/23 15:59 20:20 05:50 MCV 78.9 L MCH 25.6 L MCHC 32.5 RDW 14.4 Plt Count 507 H D MPV 9.7 Absolute Nucleated RBC 0.000 Nucleated RBC % (auto) 0.0 Anion Gap Estim Creat Clear Calc Estimated GFR POC Glucose 222 H 249 H Random Glucose Calcium Random Cortisol Random Vancomycin 15.4 01/12/24 01/12/24 01/12/24 05:51 07:13 10:55 MCV MCH MCHC RDW Plt Count MPV Absolute Nucleated RBC Nucleated RBC % (auto) Anion Gap 14 Estim Creat Clear Calc 25.7 Estimated GFR 29 POC Glucose 106 213 H Random Glucose 112 Calcium 8.4 D Random Cortisol 13.9 Random Vancomycin Assessment and Plan (1) Acute systolic CHF (congestive heart failure): Status: Acute (2) Cellulitis of foot, right: Status: Acute (3) PAD (peripheral artery disease): Status: Acute Plan 72-year-old female with pertinent history of peripheral arterial disease status left BKA, essential hypertension, insulin-dependent diabetes mellitus who presents to the emergency department for evaluation of right foot toe discoloration, swelling and discharge. Sepsis due to right foot cellulitis, diabetic foot infection with wet gangrene of the 2nd toe vanco trough were in 21.3 range -Vascular will perform angiogram on monday 08/28, and likely TMA to follow -continue IV Cefepime, started 08/24,vanco ,vanco trough 21.3 (stop vanco and changed to linezolid -08/30/23) -follow cultures,going for right transmetatarsal amputation Peripheral arterial disease: Imaging with severe stenosis in the distal right superior femoral artery and occlusion of the distal right posterior tibial artery. Vascular consular s/p angio: s/p right peroneal plasty,sfa plasty. hyponatremia,hyperkalemia ,also possible ginny vs ckd:multifactorial moniter renal function and electrolytes nephro eval-due to multiple electrolytes abnormalities ,also ginny , insetting of cxr -?mild congestion. fluid ristriction-? of siadh ( considering urine osm>serum osm),low potassium diet nephrology is aware ( consulted). posible Chf with reduced ef: Cxr: mild congestion( may be due to received fluids ) BNP is 560 Echo: 1. Moderately reduced LV ejection fraction 35-40% with grade 3 diastolic dysfunction 2. At least mildly dilated left atrium 3. [id number] mitral regurgitation 4. Moderately elevated right ventricular systolic pressure mildly elevated right atrial pressures 5. Trivial pericardial effusion plan: moniter i/o daily weight mild intermittent hypoxia-but does not seem short of breath this morning recieved iv lasix ,moniter bnp continue iv lasix for today nephrology and cardiology following Normocytic anemia, likely due to chronic inflammation: Hemoglobin above transfusion threshold. patient keep refusing transfusion h/h remains in 7. family will talk to her for transfusion. Insulin-dependent diabetes mellitus: POC, sliding scale, diabetic diet HTN, on norvasc and lisinopril at home not listed on med rec. Continue Norvasc increase to 10, continue lisinopril 10 and if needed increase to 20 Ckd 3 : cr similar Transaminitis: Due to sepsis, monitor LFTs, hold Lipitor DVT prophylaxis: Lovenox. Need for inpatient: IV Abx for diabetic foot gangrene with sepsis, at risk for limb loss and likely will need amputation, multiple electrolytic abnormalities need renal function monitoring as well as expert consultation, Also need further cardiac workup. Quality Stroke Does the patient have a stroke diagnosis?: No VTE Prior VTE?: No VTE Risk Level:: Medical - moderate - high VTE Device Contraindication: Treatment Not Indicated VTE Drug Contraindication: N/A - Med Ordered
--- NOTE | 2023-09-01 14:43 | HO.POSTANES ---
Post Anesthesia Evaluation Post Anesthesia Evaluation Date of Service: 09/01/23 Vital Signs: Vital Signs Temp Pulse Resp BP Pulse Ox O2 Del Method 09/01/23 12:17 78 20 09/01/23 08:04 72 20 09/01/23 07:33 97.4 F 60 16 142/68 H 92 Room Air 09/01/23 03:36 97.1 F 60 17 141/76 H 94 Room Air Anesthesia: General Mental Status: Awake Pain Control: Satisfactory Nausea/Vomiting: None Hydration: Adequate Anesthesia-Related Issues: No Anes. Related Issues
[2023-09-01] MEDS: oxyCODONE HCl Immed Release 5 MG TABLET PO ×2 (15:00→21:40)
[2023-09-01 16:09] LABS: Glucose, Whole Blood 195 mg/dL (60-115)
[2023-09-01 19:35] LABS: Glucose, Whole Blood 172 mg/dL (60-115)
[2023-09-01] MEDS: Insulin Glargine,Hum.rec.anlog 100 UNIT/ML 10 ML VIAL 20 UNIT SUBCUT (21:39)
[2023-09-01] MEDS: hydrALAZINE HCl 25 MG TABLET PO (21:40)
[2023-09-01] MEDS: Docusate Sodium 100 MG CAPSULE PO (21:40)
[2023-09-02] VITALS (10 sets, daily range): BP systolic 142–185; BP diastolic 64–89; PULSE 64–72; RESP 16–20; TEMP 36–37.1; O2SAT 96–100; BMI 31.7
[2023-09-02] MEDS: Linezolid 600 MG TABLET PO ×2 (05:10→16:37)
[2023-09-02 07:43] LABS: Glucose, Whole Blood 112 mg/dL (60-115)
[2023-09-02] MEDS: Multivitamin TABLET 1 TAB PO (07:54)
[2023-09-02] MEDS: Clopidogrel Bisulfate 75 MG TABLET PO (07:54)
[2023-09-02] MEDS: Isosorbide Mononitrate 30 MG TAB.ER.24H PO (07:54)
[2023-09-02] MEDS: Famotidine 20 MG TABLET PO (07:54)
[2023-09-02] MEDS: oxyCODONE HCl Immed Release 5 MG TABLET PO (07:55)
[2023-09-02] MEDS: Aspirin 81 MG TAB.CHEW PO (07:55)
[2023-09-02] MEDS: polyethylene glycoL 3350 17 GM POWD.PACK PO (07:55)
[2023-09-02] MEDS: 0.9 % Sodium Chloride Flush 3 ML SYRINGE IVFLUSH ×3 (08:04→20:40)
[2023-09-02] MEDS: Albuterol/Iprat 2.5/0.5MG 3 ML AMPUL.NEB INHALE ×3 (08:26→20:22)
--- NOTE | 2023-09-02 08:28 | PM.PNGS ---
Subjective Subjective Date of Service: 09/02/23 Interval history: Pod 2 following right transmetatarsal amputation. Patient feels well and denies any ongoing foot symptoms. Physical Exam Vital Signs: Vital Signs: Last Vital Signs Temp 97.2 F 09/02/23 07:09 Pulse 68 09/02/23 07:09 Resp 18 09/02/23 07:09 BP 185/87 H 09/02/23 07:09 Pulse Ox 96 09/02/23 07:09 O2 Del Method Room Air 09/02/23 07:09 O2 Flow Rate 2 08/31/23 14:31 BMI result Body Mass Index 31.7 Const: General: no acute distress Nutritional Appearance: well nourished Resp: Effort & Inspection: normal respiratory effort Skin: Other: Warm, dry, no rash Extrem: Other: Dressings changed to right foot. Possible subcutaneous hematoma appreciated with bloody discharge from incision. No cellulitis or abscess appreciated. Clean dressings applied. Objective Data Active Medications Acetaminophen (Acetaminophen 325 Mg Tablet) 650 mg PO Q6H PRN PRN Reason: Pain, Mild (Pain Scale 1-3) Last Admin: 08/25/23 17:37 Dose: 650 mg Documented By: ADALI Albuterol/Ipratropium (Albuterol/Iprat 2.5/0.5mg 3 Ml Ampul.Neb) 3 ml INHALE Q3H PRN PRN Reason: sob Last Admin: 08/29/23 20:51 Dose: 3 ml Documented By: ROGELIO Albuterol/Ipratropium (Albuterol/Iprat 2.5/0.5mg 3 Ml Ampul.Neb) 3 ml INHALE Q4H [facility] Last Admin: 09/02/23 08:26 Dose: 3 ml Documented By: CECILIO Aspirin (Aspirin 81 Mg Tab.Chew) 81 mg PO DAILY [facility] Last Admin: 09/02/23 07:55 Dose: 81 mg Documented By: JORGE LUIS Carvedilol (Carvedilol 6.25 Mg Tablet) 6.25 mg PO BID [facility]; Protocol Clopidogrel Bisulfate (Clopidogrel Bisulfate 75 Mg Tablet) 75 mg PO DAILY [facility] Last Admin: 09/02/23 07:54 Dose: 75 mg Documented By: JORGE LUIS Dextrose (Dextrose 50 % 25 Gm/50 Ml Syringe) 25 gm IVPUSH Q15M PRN; Protocol PRN Reason: per Hypoglycemia Standing Ord. Docusate Sodium (Docusate Sodium 100 Mg Capsule) 100 mg PO BEDTIME [facility] Last Admin: 09/01/23 21:40 Dose: 100 mg Documented By: ISMA Famotidine (Famotidine 20 Mg Tablet) 20 mg PO DAILY [facility] Last Admin: 09/02/23 07:54 Dose: 20 mg Documented By: JORGE LUIS Fentanyl (Fentanyl Citrate/Pf 100 Mcg/2 Ml Vial) 25 mcg IVPUSH Q5M PRN; Protocol PRN Reason: Pain, Moderate(Pain Scale 4-6) Furosemide (Furosemide 20 Mg Tablet) 20 mg PO DAILY [facility]; Protocol Glucose (Glucose Gel 15 Gm Gel..Gram.) 15 gm PO Q15M PRN; Protocol PRN Reason: per Hypoglycemia Standing Ord. Hydralazine HCl (Hydralazine Hcl 20 Mg/Ml Vial) 5 mg IVPUSH Q6H PRN; Protocol PRN Reason: SBP>180 Hydralazine HCl (Hydralazine Hcl 25 Mg Tablet) 25 mg PO TID [facility]; Protocol Cefepime HCl 2 gm/ Sodium (Chloride) 50 mls @ 100 mls/hr IV Q12H [facility] Last Infusion: 09/02/23 05:52 Dose: Infused Documented By: ISMA Insulin Glargine (Insulin Glargine,Hum.Rec.Anlog 100 Unit/Ml 10 Ml Vial) 20 unit SUBCUT BEDTIME [facility] Last Admin: 09/01/23 21:39 Dose: 20 unit Documented By: ISMA Insulin Human Lispro (Insulin Lispro 100 Unit/Ml 3 Ml Vial) 0 unit SUBCUT QIDACHS [facility]; Protocol Last Admin: 09/02/23 07:46 Dose: Not Given Documented By: JORGE LUIS Non-Admin Reason: No Insulin Coverage Isosorbide Mononitrate (Isosorbide Mononitrate 30 Mg Tab.Er.24h) 30 mg PO DAILY [facility]; Protocol Last Admin: 09/02/23 07:54 Dose: 30 mg Documented By: JORGE LUIS Linezolid (Linezolid 600 Mg Tablet) 600 mg PO Q12H [facility] Last Admin: 09/02/23 05:10 Dose: 600 mg Documented By: ISMA Melatonin (Melatonin 3 Mg Tablet) 6 mg PO BEDTIME PRN PRN Reason: Insomnia Last Admin: 08/28/23 22:42 Dose: 6 mg Documented By: JOHNNY Metronidazole (Metronidazole 500 Mg Tablet) 500 mg PO Q12H [facility] Morphine Sulfate (Morphine Sulfate 4 Mg/Ml Cartridge) 4 mg IVPUSH Q2H PRN; Protocol PRN Reason: Pain, Severe (Pain Scale 7-10) Multivitamins/Vitamin C (Multivitamin Tablet) 1 tab PO DAILY [facility] Last Admin: 09/02/23 07:54 Dose: 1 tab Documented By: JORGE LUIS Ondansetron HCl (Ondansetron Hcl 4 Mg/2 Ml Vial) 4 mg IVPUSH Q8H PRN PRN Reason: Nausea and Vomiting Ondansetron HCl (Ondansetron Hcl 4 Mg/2 Ml Vial) 4 mg IVPUSH ONCE PRN PRN Reason: Nausea and Vomiting Oxycodone HCl (Oxycodone Hcl Immed Release 5 Mg Tablet) 5 mg PO Q4H PRN PRN Reason: Pain, Moderate(Pain Scale 4-6) Last Admin: 09/02/23 07:55 Dose: 5 mg Documented By: JORG ELUIS Polyethylene Glycol (Polyethylene Glycol 3350 17 Gm Powd.Pack) 17 gm PO DAILY [facility] Last Admin: 09/02/23 07:55 Dose: 17 gm Documented By: JORGE LUIS Sodium Chloride (0.9 % Sodium Chloride Flush 3 Ml Syringe) 3 ml IVFLUSH QSHIFT [facility] Last Admin: 09/02/23 08:04 Dose: 3 ml Documented By: JORGE LUIS Labs 09/01/23 05:50 09/01/23 05:51 Labs: Laboratory Results - last 24 hr 09/01/23 09/01/23 09/01/23 10:55 16:04 19:29 Hold Purple Top POC Glucose 213 H 195 H 172 H 09/02/23 09/02/23 07:15 07:57 Hold Purple Top SEE NOTE POC Glucose 112 Procedures Date of Service Date of Service: 09/02/23 Progress Note: A&P Assessment and plan (1) Diabetic ulcer of toe: Status: Acute (2) Osteomyelitis: Status: Acute Plan Pod 2 following transmetatarsal amputation right foot. Will monitor wound edges; dressing change plan for tomorrow. Time Spent With Patient Time: Total time managing care of this patient today ____ minutes. Quality Stroke Does the patient have a stroke diagnosis?: No VTE Prior VTE?: No VTE Risk Level:: Medical - moderate - high VTE Device Contraindication: Treatment Not Indicated VTE Drug Contraindication: N/A - Med Ordered
[2023-09-02 08:32] LABS: Anion Gap 13 (12-20); Blood Urea Nitrogen 43 mg/dL (9-16); Calcium 8.7 mg/dL (8.4-10.2); Carbon Dioxide 22 mmol/L (22-29); Chloride 101 mmol/L (96-108); Creatinine Clr Calc Pharmacy 24.5; Estimated Glomerular Filt Rate 28; Glucose Random 103 mg/dL (60-115); Potassium 4.8 mmol/L (3.3-5.1); Sodium 131 mmol/L (135-145)
[2023-09-02] MEDS: hydrALAZINE HCl 25 MG TABLET PO ×3 (09:26→20:39)
[2023-09-02] MEDS: carvediloL 6.25 MG TABLET PO ×2 (09:26→20:38)
[2023-09-02] MEDS: Furosemide 20 MG TABLET PO (09:26)
[2023-09-02 11:04] LABS: Glucose, Whole Blood 218 mg/dL (60-115)
[2023-09-02] MEDS: metroNIDAZOLE 500 MG TABLET PO ×2 (11:43→23:18)
[2023-09-02] MEDS: Insulin Lispro 100 UNIT/ML 3 ML VIAL SUBCUT ×3 (11:43→20:39)
[2023-09-02] MEDS: hydrALAZINE HCl 20 MG/ML VIAL 5 MG IVPUSH (12:01)
--- NOTE | 2023-09-02 12:01 | P.PNIM_ITS ---
Subjective Subjective Date of Service: 09/02/23 Interval History: uncontrolled htn, chf Review of Systems sob seems improving denies any chest pain Physical Exam 2 Vital Signs: Vital Signs: Last Vital Signs Temp 97.2 F 09/02/23 07:09 Pulse 67 09/02/23 11:51 Resp 18 09/02/23 11:33 BP 184/89 H 09/02/23 11:51 Pulse Ox 96 09/02/23 07:09 O2 Del Method Room Air 09/02/23 07:09 O2 Flow Rate 2 08/31/23 14:31 BMI result Body Mass Index 31.7 General: AO X 3, no acute distress Resp: CTA bilateral CVS: S1,S2,RRR GI: +BS, NT, no distention,bs present. Skin: no change,trace edema right foot area -similar .Dressings changed to right foot. Possible subcutaneous hematoma appreciated with bloody discharge from incision(please refer to pics from surgery note). Objective Data Active Medications Acetaminophen (Acetaminophen 325 Mg Tablet) 650 mg PO Q6H PRN PRN Reason: Pain, Mild (Pain Scale 1-3) Last Admin: 08/25/23 17:37 Dose: 650 mg Documented By: ADALI Albuterol/Ipratropium (Albuterol/Iprat 2.5/0.5mg 3 Ml Ampul.Neb) 3 ml INHALE Q3H PRN PRN Reason: sob Last Admin: 08/29/23 20:51 Dose: 3 ml Documented By: ROGELIO Albuterol/Ipratropium (Albuterol/Iprat 2.5/0.5mg 3 Ml Ampul.Neb) 3 ml INHALE Q4H [facility] Last Admin: 09/02/23 11:31 Dose: 3 ml Documented By: CECILIO Aspirin (Aspirin 81 Mg Tab.Chew) 81 mg PO DAILY [facility] Last Admin: 09/02/23 07:55 Dose: 81 mg Documented By: JORGE LUIS Carvedilol (Carvedilol 6.25 Mg Tablet) 6.25 mg PO BID [facility]; Protocol Last Admin: 09/02/23 09:26 Dose: 6.25 mg Documented By: JORGE LUIS Clopidogrel Bisulfate (Clopidogrel Bisulfate 75 Mg Tablet) 75 mg PO DAILY [facility] Last Admin: 09/02/23 07:54 Dose: 75 mg Documented By: JORGE LUIS Dextrose (Dextrose 50 % 25 Gm/50 Ml Syringe) 25 gm IVPUSH Q15M PRN; Protocol PRN Reason: per Hypoglycemia Standing Ord. Docusate Sodium (Docusate Sodium 100 Mg Capsule) 100 mg PO BEDTIME [facility] Last Admin: 09/01/23 21:40 Dose: 100 mg Documented By: ISMA Famotidine (Famotidine 20 Mg Tablet) 20 mg PO DAILY [facility] Last Admin: 09/02/23 07:54 Dose: 20 mg Documented By: JORGE LUIS Fentanyl (Fentanyl Citrate/Pf 100 Mcg/2 Ml Vial) 25 mcg IVPUSH Q5M PRN; Protocol PRN Reason: Pain, Moderate(Pain Scale 4-6) Furosemide (Furosemide 20 Mg Tablet) 20 mg PO DAILY [facility]; Protocol Last Admin: 09/02/23 09:26 Dose: 20 mg Documented By: JORGE LUIS Glucose (Glucose Gel 15 Gm Gel..Gram.) 15 gm PO Q15M PRN; Protocol PRN Reason: per Hypoglycemia Standing Ord. Hydralazine HCl (Hydralazine Hcl 20 Mg/Ml Vial) 5 mg IVPUSH Q6H PRN; Protocol PRN Reason: SBP>180 Hydralazine HCl (Hydralazine Hcl 25 Mg Tablet) 25 mg PO TID [facility]; Protocol Last Admin: 09/02/23 09:26 Dose: 25 mg Documented By: JORGE LUIS Cefepime HCl 2 gm/ Sodium (Chloride) 50 mls @ 100 mls/hr IV Q12H [facility] Last Infusion: 09/02/23 05:52 Dose: Infused Documented By: ISMA Insulin Glargine (Insulin Glargine,Hum.Rec.Anlog 100 Unit/Ml 10 Ml Vial) 20 unit SUBCUT BEDTIME [facility] Last Admin: 09/01/23 21:39 Dose: 20 unit Documented By: ISMA Insulin Human Lispro (Insulin Lispro 100 Unit/Ml 3 Ml Vial) 0 unit SUBCUT QIDACHS [facility]; Protocol Last Admin: 09/02/23 11:43 Dose: 4 unit Documented By: JORGE LUIS Isosorbide Mononitrate (Isosorbide Mononitrate 30 Mg Tab.Er.24h) 30 mg PO DAILY [facility]; Protocol Last Admin: 09/02/23 07:54 Dose: 30 mg Documented By: JORGE LUIS Linezolid (Linezolid 600 Mg Tablet) 600 mg PO Q12H [facility] Last Admin: 09/02/23 05:10 Dose: 600 mg Documented By: ISMA Melatonin (Melatonin 3 Mg Tablet) 6 mg PO BEDTIME PRN PRN Reason: Insomnia Last Admin: 08/28/23 22:42 Dose: 6 mg Documented By: JOHNNY Metronidazole (Metronidazole 500 Mg Tablet) 500 mg PO Q12H [facility] Last Admin: 09/02/23 11:43 Dose: 500 mg Documented By: JORGE LUIS Morphine Sulfate (Morphine Sulfate 4 Mg/Ml Cartridge) 4 mg IVPUSH Q2H PRN; Protocol PRN Reason: Pain, Severe (Pain Scale 7-10) Multivitamins/Vitamin C (Multivitamin Tablet) 1 tab PO DAILY [facility] Last Admin: 09/02/23 07:54 Dose: 1 tab Documented By: JORGE LUIS Ondansetron HCl (Ondansetron Hcl 4 Mg/2 Ml Vial) 4 mg IVPUSH Q8H PRN PRN Reason: Nausea and Vomiting Ondansetron HCl (Ondansetron Hcl 4 Mg/2 Ml Vial) 4 mg IVPUSH ONCE PRN PRN Reason: Nausea and Vomiting Oxycodone HCl (Oxycodone Hcl Immed Release 5 Mg Tablet) 5 mg PO Q4H PRN PRN Reason: Pain, Moderate(Pain Scale 4-6) Last Admin: 09/02/23 07:55 Dose: 5 mg Documented By: JORGE LUIS Polyethylene Glycol (Polyethylene Glycol 3350 17 Gm Powd.Pack) 17 gm PO DAILY [facility] Last Admin: 09/02/23 07:55 Dose: 17 gm Documented By: JORGE LUIS Sodium Chloride (0.9 % Sodium Chloride Flush 3 Ml Syringe) 3 ml IVFLUSH QSHIFT [facility] Last Admin: 09/02/23 08:04 Dose: 3 ml Documented By: JORGE LUIS Labs 09/01/23 05:50 09/02/23 07:57 Labs: Laboratory Results - last 24 hr 09/01/23 09/01/23 09/02/23 16:04 19:29 07:15 Hold Purple Top Anion Gap Estim Creat Clear Calc Estimated GFR POC Glucose 195 H 172 H 112 Random Glucose Calcium 09/02/23 09/02/23 07:57 10:58 Hold Purple Top SEE NOTE Anion Gap 13 Estim Creat Clear Calc 24.5 Estimated GFR 28 POC Glucose 218 H Random Glucose 103 Calcium 8.7 Assessment and Plan (1) Hyponatremia: Status: Acute (2) Hyperkalemia: Status: Acute (3) Acute kidney injury: Status: Acute (4) Acute systolic CHF (congestive heart failure): Status: Acute Plan 72-year-old female with pertinent history of peripheral arterial disease status left BKA, essential hypertension, insulin-dependent diabetes mellitus who presents to the emergency department for evaluation of right foot toe discoloration, swelling and discharge. Sepsis due to right foot cellulitis, diabetic foot infection with wet gangrene of the 2nd toe vanco trough were in 21.3 range -Vascular will perform angiogram on monday 08/28, and s/p TMA on 09/01/23. -ontinue IV Cefepime, started 08/24,vanco ,vanco trough 21.3 (stop vanco and changed to linezolid -08/30/23) -follow cultures,going for right transmetatarsal amputation Peripheral arterial disease: Imaging with severe stenosis in the distal right superior femoral artery and occlusion of the distal right posterior tibial artery. Vascular consular s/p angio: s/p right peroneal plasty,sfa plasty. hyponatremia,hyperkalemia ,also possible ginny vs ckd:multifactorial moniter renal function and electrolytes nephro eval-due to multiple electrolytes abnormalities ,also ginny , insetting of cxr -?mild congestion. fluid ristriction-? of siadh ( considering urine osm>serum osm),low potassium diet with above management -hyponatremia/hyperkalemia seems to be improving nephrology follwin posible Chf with reduced ef: Cxr: mild congestion( may be due to received fluids ) BNP is 560 Echo: 1. Moderately reduced LV ejection fraction 35-40% with grade 3 diastolic dysfunction 2. At least mildly dilated left atrium 3. Swfq-ra-aevreypr mitral regurgitation 4. Moderately elevated right ventricular systolic pressure mildly elevated right atrial pressures 5. Trivial pericardial effusion plan: moniter i/o daily weight mild intermittent hypoxia-but does not seem short of breath this morning recieved iv lasix ,,diursed ,?i/o not clearcut patient currently seems to be improving nephrology and cardiology following-switching to po lasix, in addition adjusted hydralazine and coreg. also added jardiance . Normocytic anemia, likely due to chronic inflammation: Hemoglobin above transfusion threshold. patient keep refusing transfusion h/h remains in 7.4 /22.8. moniter cbc . Insulin-dependent diabetes mellitus: POC, sliding scale, diabetic diet uncontrolled HTN, on norvasc and lisinopril at home not listed on med rec. Continue Norvasc increase to 10, continue lisinopril 10 and if needed increase to 20 Ckd 3 : cr similar Transaminitis: Due to sepsis, monitor LFTs, hold Lipitor DVT prophylaxis: Lovenox on hold due anemia /small ?hemtoma at surgery foot area. Need for inpatient: IV Abx for diabetic foot gangrene with sepsis,s/p amputation, multiple electrolytic abnormalities need renal function monitoring as well as expert consultation, Also need further cardiac workup. Quality Stroke Does the patient have a stroke diagnosis?: No VTE Prior VTE?: No VTE Risk Level:: Medical - moderate - high VTE Device Contraindication: Treatment Not Indicated VTE Drug Contraindication: N/A - Med Ordered
[2023-09-02] MEDS: Acetaminophen 325 MG TABLET 650 MG PO (12:04)
[2023-09-02 16:20] LABS: Glucose, Whole Blood 303 mg/dL (60-115)
[2023-09-02 20:19] LABS: Glucose, Whole Blood 168 mg/dL (60-115)
[2023-09-02] MEDS: Insulin Glargine,Hum.rec.anlog 100 UNIT/ML 10 ML VIAL 20 UNIT SUBCUT (20:39)
[2023-09-02] MEDS: Docusate Sodium 100 MG CAPSULE PO (20:39)
[2023-09-03] VITALS (7 sets, daily range): BP systolic 130–170; BP diastolic 64–81; PULSE 62–76; RESP 16–17; TEMP 36.2–37; O2SAT 94–98; BMI 31.3
[2023-09-03] MEDS: Linezolid 600 MG TABLET PO ×2 (05:15→16:49)
[2023-09-03 07:48] LABS: Glucose, Whole Blood 81 mg/dL (60-115)
[2023-09-03] MEDS: Clopidogrel Bisulfate 75 MG TABLET PO (08:22)
[2023-09-03] MEDS: Furosemide 20 MG TABLET PO (08:23)
[2023-09-03] MEDS: hydrALAZINE HCl 50 MG TABLET PO ×2 (08:23→20:12)
[2023-09-03] MEDS: Famotidine 20 MG TABLET PO (08:23)
[2023-09-03] MEDS: Aspirin 81 MG TAB.CHEW PO (08:23)
[2023-09-03] MEDS: Multivitamin TABLET 1 TAB PO (08:23)
[2023-09-03] MEDS: Acetaminophen 325 MG TABLET 650 MG PO (08:24)
[2023-09-03] MEDS: Isosorbide Mononitrate 60 MG TAB.ER.24H PO (08:26)
[2023-09-03] MEDS: polyethylene glycoL 3350 17 GM POWD.PACK PO (08:26)
[2023-09-03] MEDS: carvediloL 6.25 MG TABLET PO ×2 (08:26→20:12)
[2023-09-03] MEDS: Albuterol/Iprat 2.5/0.5MG 3 ML AMPUL.NEB INHALE ×3 (08:27→19:34)
[2023-09-03] MEDS: 0.9 % Sodium Chloride Flush 3 ML SYRINGE IVFLUSH ×2 (08:30→16:49)
--- NOTE | 2023-09-03 09:18 | PM.PNGS ---
Subjective Subjective Date of Service: 09/03/23 Patient reports: no new complaints and pain is less Physical Exam Vital Signs: Vital Signs: Last Vital Signs Temp 97.2 F 09/03/23 07:05 Pulse 68 09/03/23 08:30 Resp 16 09/03/23 08:30 BP 170/81 H 09/03/23 07:05 Pulse Ox 97 09/03/23 07:05 O2 Del Method Room Air 09/03/23 07:05 O2 Flow Rate 2 08/31/23 14:31 BMI result Body Mass Index 31.3 Const: Other: No acute distress Resp: Other: Taking respiratory inhalation treatment, no respiratory distress Extrem: Other: Dressings to right foot intact. No erythema appreciated. Objective Data Active Medications Acetaminophen (Acetaminophen 325 Mg Tablet) 650 mg PO Q6H PRN PRN Reason: Pain, Mild (Pain Scale 1-3) Last Admin: 09/03/23 08:24 Dose: 650 mg Documented By: JORGE LUIS Albuterol/Ipratropium (Albuterol/Iprat 2.5/0.5mg 3 Ml Ampul.Neb) 3 ml INHALE Q3H PRN PRN Reason: sob Last Admin: 08/29/23 20:51 Dose: 3 ml Documented By: ROGELIO Albuterol/Ipratropium (Albuterol/Iprat 2.5/0.5mg 3 Ml Ampul.Neb) 3 ml INHALE Q4H [facility] Last Admin: 09/03/23 08:27 Dose: 3 ml Documented By: CECILIO Aspirin (Aspirin 81 Mg Tab.Chew) 81 mg PO DAILY [facility] Last Admin: 09/03/23 08:23 Dose: 81 mg Documented By: JORGE LUIS Carvedilol (Carvedilol 6.25 Mg Tablet) 6.25 mg PO BID [facility]; Protocol Last Admin: 09/03/23 08:26 Dose: 6.25 mg Documented By: JORGE LUIS Clopidogrel Bisulfate (Clopidogrel Bisulfate 75 Mg Tablet) 75 mg PO DAILY [facility] Last Admin: 09/03/23 08:22 Dose: 75 mg Documented By: JORGE LUIS Dextrose (Dextrose 50 % 25 Gm/50 Ml Syringe) 25 gm IVPUSH Q15M PRN; Protocol PRN Reason: per Hypoglycemia Standing Ord. Docusate Sodium (Docusate Sodium 100 Mg Capsule) 100 mg PO BEDTIME [facility] Last Admin: 09/02/23 20:39 Dose: 100 mg Documented By: ISMA Famotidine (Famotidine 20 Mg Tablet) 20 mg PO DAILY [facility] Last Admin: 09/03/23 08:23 Dose: 20 mg Documented By: JORGE LUIS Fentanyl (Fentanyl Citrate/Pf 100 Mcg/2 Ml Vial) 25 mcg IVPUSH Q5M PRN; Protocol PRN Reason: Pain, Moderate(Pain Scale 4-6) Furosemide (Furosemide 20 Mg Tablet) 20 mg PO DAILY [facility]; Protocol Last Admin: 09/03/23 08:23 Dose: 20 mg Documented By: JORGE LUIS Glucose (Glucose Gel 15 Gm Gel..Gram.) 15 gm PO Q15M PRN; Protocol PRN Reason: per Hypoglycemia Standing Ord. Hydralazine HCl (Hydralazine Hcl 20 Mg/Ml Vial) 5 mg IVPUSH Q6H PRN; Protocol PRN Reason: SBP>180 Last Admin: 09/02/23 12:01 Dose: 5 mg Documented By: JORGE LUIS Hydralazine HCl (Hydralazine Hcl 50 Mg Tablet) 50 mg PO BID [facility]; Protocol Last Admin: 09/03/23 08:23 Dose: 50 mg Documented By: JORGE LUIS Cefepime HCl 2 gm/ Sodium (Chloride) 50 mls @ 100 mls/hr IV Q12H [facility] Last Infusion: 09/03/23 05:59 Dose: Infused Documented By: ISMA Insulin Glargine (Insulin Glargine,Hum.Rec.Anlog 100 Unit/Ml 10 Ml Vial) 20 unit SUBCUT BEDTIME [facility] Last Admin: 09/02/23 20:39 Dose: 20 unit Documented By: ISMA Insulin Human Lispro (Insulin Lispro 100 Unit/Ml 3 Ml Vial) 0 unit SUBCUT QIDACHS [facility]; Protocol Last Admin: 09/03/23 08:05 Dose: Not Given Documented By: JORGE LUIS Non-Admin Reason: No Insulin Coverage Isosorbide Mononitrate (Isosorbide Mononitrate 60 Mg Tab.Er.24h) 60 mg PO DAILY [facility]; Protocol Last Admin: 09/03/23 08:26 Dose: 60 mg Documented By: JORGE LUIS Linezolid (Linezolid 600 Mg Tablet) 600 mg PO Q12H [facility] Last Admin: 09/03/23 05:15 Dose: 600 mg Documented By: ISMA Melatonin (Melatonin 3 Mg Tablet) 6 mg PO BEDTIME PRN PRN Reason: Insomnia Last Admin: 08/28/23 22:42 Dose: 6 mg Documented By: JOHNNY Metronidazole (Metronidazole 500 Mg Tablet) 500 mg PO Q12H [facility] Last Admin: 09/02/23 23:18 Dose: 500 mg Documented By: ISMA Morphine Sulfate (Morphine Sulfate 4 Mg/Ml Cartridge) 4 mg IVPUSH Q2H PRN; Protocol PRN Reason: Pain, Severe (Pain Scale 7-10) Multivitamins/Vitamin C (Multivitamin Tablet) 1 tab PO DAILY [facility] Last Admin: 09/03/23 08:23 Dose: 1 tab Documented By: JORGE LUIS Ondansetron HCl (Ondansetron Hcl 4 Mg/2 Ml Vial) 4 mg IVPUSH Q8H PRN PRN Reason: Nausea and Vomiting Ondansetron HCl (Ondansetron Hcl 4 Mg/2 Ml Vial) 4 mg IVPUSH ONCE PRN PRN Reason: Nausea and Vomiting Oxycodone HCl (Oxycodone Hcl Immed Release 5 Mg Tablet) 5 mg PO Q4H PRN PRN Reason: Pain, Moderate(Pain Scale 4-6) Last Admin: 09/02/23 07:55 Dose: 5 mg Documented By: JORGE LUIS Polyethylene Glycol (Polyethylene Glycol 3350 17 Gm Powd.Pack) 17 gm PO DAILY [facility] Last Admin: 09/03/23 08:26 Dose: 17 gm Documented By: JORGE LUIS Sodium Chloride (0.9 % Sodium Chloride Flush 3 Ml Syringe) [facility] Last Admin: 09/03/23 08:30 Dose: 3 ml Documented By: JORGE LUIS Labs 09/01/23 05:50 09/02/23 07:57 Labs: Laboratory Results - last 24 hr 09/02/23 09/02/23 09/02/23 10:58 16:14 20:09 POC Glucose 218 H 303 H 168 H 09/03/23 07:10 POC Glucose 81 Procedures Date of Service Date of Service: 09/03/23 Progress Note: A&P Assessment and plan (1) Diabetic ulcer of toe: Status: Acute Plan POD #3 s/p transmetatarsal amputation right foot. Continue local wound care. Time Spent With Patient Time: Total time managing care of this patient today ____ minutes. Quality Stroke Does the patient have a stroke diagnosis?: No VTE Prior VTE?: No VTE Risk Level:: Medical - moderate - high VTE Device Contraindication: Treatment Not Indicated VTE Drug Contraindication: N/A - Med Ordered
[2023-09-03 11:11] LABS: Glucose, Whole Blood 168 mg/dL (60-115)
[2023-09-03] MEDS: metroNIDAZOLE 500 MG TABLET PO (11:48)
[2023-09-03] MEDS: Insulin Lispro 100 UNIT/ML 3 ML VIAL SUBCUT ×2 (11:51→21:10)
--- NOTE | 2023-09-03 13:43 | P.PNIM_ITS ---
Subjective Subjective Date of Service: 09/04/23 Interval History: uncontrolled htn, chf Review of Systems sob seems improved. denies any chest pain Physical Exam 2 Vital Signs: Vital Signs: Last Vital Signs Temp 97.2 F 09/03/23 07:05 Pulse 66 09/03/23 11:36 Resp 16 09/03/23 11:36 BP 170/81 H 09/03/23 07:05 Pulse Ox 97 09/03/23 07:05 O2 Del Method Room Air 09/03/23 07:05 O2 Flow Rate 2 08/31/23 14:31 BMI result Body Mass Index 31.3 General: AO X 3, no acute distress Resp: CTA bilateral CVS: S1,S2,RRR GI: +BS, NT, no distention,bs present. Skin: no change,trace edema right foot area -similar .Dressings changed to right foot. Possible subcutaneous hematoma appreciated with bloody discharge from incision(please refer to pics from surgery note).has little blood oozing on dressin Objective Data Active Medications Acetaminophen (Acetaminophen 325 Mg Tablet) 650 mg PO Q6H PRN PRN Reason: Pain, Mild (Pain Scale 1-3) Last Admin: 09/03/23 08:24 Dose: 650 mg Documented By: JORGE LUIS Albuterol/Ipratropium (Albuterol/Iprat 2.5/0.5mg 3 Ml Ampul.Neb) 3 ml INHALE Q3H PRN PRN Reason: sob Last Admin: 08/29/23 20:51 Dose: 3 ml Documented By: ROGELIO Albuterol/Ipratropium (Albuterol/Iprat 2.5/0.5mg 3 Ml Ampul.Neb) 3 ml INHALE Q4H [facility] Last Admin: 09/03/23 11:36 Dose: 3 ml Documented By: CECILIO Aspirin (Aspirin 81 Mg Tab.Chew) 81 mg PO DAILY [facility] Last Admin: 09/03/23 08:23 Dose: 81 mg Documented By: JORGE LUIS Carvedilol (Carvedilol 6.25 Mg Tablet) 6.25 mg PO BID [facility]; Protocol Last Admin: 09/03/23 08:26 Dose: 6.25 mg Documented By: JORGE LUIS Clopidogrel Bisulfate (Clopidogrel Bisulfate 75 Mg Tablet) 75 mg PO DAILY [facility] Last Admin: 09/03/23 08:22 Dose: 75 mg Documented By: JORGE LUIS Dextrose (Dextrose 50 % 25 Gm/50 Ml Syringe) 25 gm IVPUSH Q15M PRN; Protocol PRN Reason: per Hypoglycemia Standing Ord. Docusate Sodium (Docusate Sodium 100 Mg Capsule) 100 mg PO BEDTIME [facility] Last Admin: 09/02/23 20:39 Dose: 100 mg Documented By: ISMA Famotidine (Famotidine 20 Mg Tablet) 20 mg PO DAILY [facility] Last Admin: 09/03/23 08:23 Dose: 20 mg Documented By: JORGE LUIS Fentanyl (Fentanyl Citrate/Pf 100 Mcg/2 Ml Vial) 25 mcg IVPUSH Q5M PRN; Protocol PRN Reason: Pain, Moderate(Pain Scale 4-6) Furosemide (Furosemide 20 Mg Tablet) 20 mg PO DAILY [facility]; Protocol Last Admin: 09/03/23 08:23 Dose: 20 mg Documented By: JORGE LUIS Glucose (Glucose Gel 15 Gm Gel..Gram.) 15 gm PO Q15M PRN; Protocol PRN Reason: per Hypoglycemia Standing Ord. Hydralazine HCl (Hydralazine Hcl 20 Mg/Ml Vial) 5 mg IVPUSH Q6H PRN; Protocol PRN Reason: SBP>180 Last Admin: 09/02/23 12:01 Dose: 5 mg Documented By: JORGE LUIS Hydralazine HCl (Hydralazine Hcl 50 Mg Tablet) 50 mg PO BID [facility]; Protocol Last Admin: 09/03/23 08:23 Dose: 50 mg Documented By: JORGE LUIS Cefepime HCl 2 gm/ Sodium (Chloride) 50 mls @ 100 mls/hr IV Q12H [facility] Last Infusion: 09/03/23 05:59 Dose: Infused Documented By: ISMA Insulin Glargine (Insulin Glargine,Hum.Rec.Anlog 100 Unit/Ml 10 Ml Vial) 20 unit SUBCUT BEDTIME [facility] Last Admin: 09/02/23 20:39 Dose: 20 unit Documented By: ISMA Insulin Human Lispro (Insulin Lispro 100 Unit/Ml 3 Ml Vial) 0 unit SUBCUT QIDACHS [facility]; Protocol Last Admin: 09/03/23 11:51 Dose: 2 unit Documented By: JORGE LUIS Isosorbide Mononitrate (Isosorbide Mononitrate 60 Mg Tab.Er.24h) 60 mg PO DAILY [facility]; Protocol Last Admin: 09/03/23 08:26 Dose: 60 mg Documented By: JORGE LUIS Linezolid (Linezolid 600 Mg Tablet) 600 mg PO Q12H [facility] Last Admin: 09/03/23 05:15 Dose: 600 mg Documented By: ARACELIILJesus Melatonin (Melatonin 3 Mg Tablet) 6 mg PO BEDTIME PRN PRN Reason: Insomnia Last Admin: 08/28/23 22:42 Dose: 6 mg Documented By: JOHNNY Metronidazole (Metronidazole 500 Mg Tablet) 500 mg PO Q12H [facility] Last Admin: 09/03/23 11:48 Dose: 500 mg Documented By: JORGE LUIS Morphine Sulfate (Morphine Sulfate 4 Mg/Ml Cartridge) 4 mg IVPUSH Q2H PRN; Protocol PRN Reason: Pain, Severe (Pain Scale 7-10) Multivitamins/Vitamin C (Multivitamin Tablet) 1 tab PO DAILY [facility] Last Admin: 09/03/23 08:23 Dose: 1 tab Documented By: JORGE LUIS Ondansetron HCl (Ondansetron Hcl 4 Mg/2 Ml Vial) 4 mg IVPUSH Q8H PRN PRN Reason: Nausea and Vomiting Ondansetron HCl (Ondansetron Hcl 4 Mg/2 Ml Vial) 4 mg IVPUSH ONCE PRN PRN Reason: Nausea and Vomiting Oxycodone HCl (Oxycodone Hcl Immed Release 5 Mg Tablet) 5 mg PO Q4H PRN PRN Reason: Pain, Moderate(Pain Scale 4-6) Last Admin: 09/02/23 07:55 Dose: 5 mg Documented By: JORGE LUIS Polyethylene Glycol (Polyethylene Glycol 3350 17 Gm Powd.Pack) 17 gm PO DAILY [facility] Last Admin: 09/03/23 08:26 Dose: 17 gm Documented By: JORGE LUIS Sodium Chloride (0.9 % Sodium Chloride Flush 3 Ml Syringe) [facility] Last Admin: 09/03/23 08:30 Dose: 3 ml Documented By: JORGE LUIS Labs 09/01/23 05:50 09/04/23 03:38 Labs: Laboratory Results - last 24 hr 09/02/23 09/02/23 09/03/23 16:14 20:09 07:10 POC Glucose 303 H 168 H 81 09/03/23 11:01 POC Glucose 168 H Assessment and Plan (1) Hyponatremia: Status: Acute (2) Hyperkalemia: Status: Acute (3) Acute kidney injury: Status: Acute (4) Acute systolic CHF (congestive heart failure): Status: Acute Plan 72-year-old female with pertinent history of peripheral arterial disease status left BKA, essential hypertension, insulin-dependent diabetes mellitus who presents to the emergency department for evaluation of right foot toe discoloration, swelling and discharge. Sepsis due to right foot cellulitis, diabetic foot infection with wet gangrene of the 2nd toe vanco trough were in 21.3 range -Vascular will perform angiogram on monday 08/28, and s/p TMA on 09/01/23. -ontinue IV Cefepime, started 08/24,vanco ,vanco trough 21.3 (stop vanco and changed to linezolid -08/30/23) -follow cultures,going for right transmetatarsal amputation Peripheral arterial disease: Imaging with severe stenosis in the distal right superior femoral artery and occlusion of the distal right posterior tibial artery. Vascular consular s/p angio: s/p right peroneal plasty,sfa plasty. hyponatremia,hyperkalemia ,also possible ginny vs ckd:multifactorial moniter renal function and electrolytes nephro eval-due to multiple electrolytes abnormalities ,also ginny , insetting of cxr -?mild congestion. fluid ristriction-? of siadh ( considering urine osm>serum osm),low potassium diet with above management -hyponatremia/hyperkalemia seems to be improving nephrology follwin posible Chf with reduced ef: Cxr: mild congestion( may be due to received fluids ) BNP is 560 Echo: 1. Moderately reduced LV ejection fraction 35-40% with grade 3 diastolic dysfunction 2. At least mildly dilated left atrium 3. Zgqu-[id number] mitral regurgitation 4. Moderately elevated right ventricular systolic pressure mildly elevated right atrial pressures 5. Trivial pericardial effusion plan: moniter i/o daily weight mild intermittent hypoxia-but does not seem short of breath this morning recieved iv lasix ,,diursed ,?i/o not clearcut patient currently seems to be improving nephrology and cardiology following-switching to po lasix, in addition adjusted hydralazine and coreg. also added jardiance . Normocytic anemia, likely due to chronic inflammation: Hemoglobin above transfusion threshold. patient keep refusing transfusion h/h flactuating in 7.4 range moniter cbc . Insulin-dependent diabetes mellitus: POC, sliding scale, diabetic diet uncontrolled HTN: continue coreg,hydralazine ,imdur Ckd 3 : cr similar Transaminitis: Due to sepsis, monitor LFTs, hold Lipitor DVT prophylaxis: Lovenox on hold due anemia /small ?hemtoma at surgery foot area. Pt recomended rehab. Need for inpatient: IV Abx for diabetic foot gangrene s/p amputation,need renal function monitoring as well as need surgery follow up, Quality Stroke Does the patient have a stroke diagnosis?: No VTE Prior VTE?: No VTE Risk Level:: Medical - moderate - high VTE Device Contraindication: Treatment Not Indicated VTE Drug Contraindication: N/A - Med Ordered
[2023-09-03 15:58] LABS: Glucose, Whole Blood 144 mg/dL (60-115)
--- NOTE | 2023-09-03 19:19 | PC.NURSE ---
Blood noted on pt.'s right foot with ambulation. Dr. Manzanares order for pt. to stay in bed today until evaluated by vascular. Report given to oncoming Nurse.
[2023-09-03] MEDS: Docusate Sodium 100 MG CAPSULE PO (20:12)
[2023-09-03] MEDS: Insulin Glargine,Hum.rec.anlog 100 UNIT/ML 10 ML VIAL 20 UNIT SUBCUT (20:13)
[2023-09-03 21:11] LABS: Glucose, Whole Blood 218 mg/dL (60-115)
[2023-09-04] VITALS (10 sets, daily range): BP systolic 141–170; BP diastolic 57–72; PULSE 61–78; RESP 16–18; TEMP 36–36.8; O2SAT 95–99
[2023-09-04] MEDS: metroNIDAZOLE 500 MG TABLET PO ×3 (00:02→22:27)
[2023-09-04] MEDS: 0.9 % Sodium Chloride Flush 3 ML SYRINGE IVFLUSH ×4 (00:07→20:30)
[2023-09-04] MEDS: Albuterol/Iprat 2.5/0.5MG 3 ML AMPUL.NEB INHALE ×5 (01:52→19:52)
[2023-09-04 05:28] LABS: Anion Gap 11 (12-20); Blood Urea Nitrogen 37 mg/dL (9-16); Calcium 8.5 mg/dL (8.4-10.2); Carbon Dioxide 23 mmol/L (22-29); Chloride 105 mmol/L (96-108); Creatinine Clr Calc Pharmacy 23.8; Estimated Glomerular Filt Rate 27; Glucose Random 134 mg/dL (60-115); Potassium 4.8 mmol/L (3.3-5.1); Sodium 134 mmol/L (135-145)
[2023-09-04] MEDS: Linezolid 600 MG TABLET PO ×2 (06:35→17:09)
[2023-09-04] MEDS: oxyCODONE HCl Immed Release 5 MG TABLET PO ×2 (06:37→10:50)
[2023-09-04 07:36] LABS: Glucose, Whole Blood 129 mg/dL (60-115)
[2023-09-04] MEDS: hydrALAZINE HCl 50 MG TABLET PO ×2 (08:11→20:28)
[2023-09-04] MEDS: Isosorbide Mononitrate 60 MG TAB.ER.24H PO (08:11)
[2023-09-04] MEDS: Furosemide 20 MG TABLET PO (08:12)
[2023-09-04] MEDS: Aspirin 81 MG TAB.CHEW PO (08:12)
[2023-09-04] MEDS: carvediloL 6.25 MG TABLET PO ×2 (08:12→20:28)
[2023-09-04] MEDS: Famotidine 20 MG TABLET PO (08:13)
[2023-09-04] MEDS: Multivitamin TABLET 1 TAB PO (08:13)
[2023-09-04] MEDS: Clopidogrel Bisulfate 75 MG TABLET PO (08:14)
[2023-09-04] MEDS: polyethylene glycoL 3350 17 GM POWD.PACK PO (08:15)
[2023-09-04] MEDS: Acetaminophen 325 MG TABLET 650 MG PO (08:19)
--- NOTE | 2023-09-04 09:20 | P.PNGS_ITS ---
Subjective Subjective Date of Service: 09/04/23 Interval history: Patient reports feeling well, denies any new complaints. Physical Exam 2 Vital Signs: Vital Signs: Last Vital Signs Temp 97.2 F 09/04/23 07:13 Pulse 71 09/04/23 07:40 Resp 18 09/04/23 07:40 BP 170/67 H 09/04/23 07:13 Pulse Ox 95 09/04/23 07:13 O2 Del Method Room Air 09/04/23 07:13 O2 Flow Rate 2 08/31/23 14:31 BMI result Body Mass Index 31.3 Const: General: no acute distress Nutritional Appearance: well nourished Resp: Effort & Inspection: normal respiratory effort Extrem: Other: Right foot with triangular shaped area of ischemic changes on the plantar surface. Dorsal surface appears viable without ischemia. Sutures remain intact. Objective Data Active Medications Acetaminophen (Acetaminophen 325 Mg Tablet) 650 mg PO Q6H PRN PRN Reason: Pain, Mild (Pain Scale 1-3) Last Admin: 09/04/23 08:19 Dose: 650 mg Documented By: CHIP Albuterol/Ipratropium (Albuterol/Iprat 2.5/0.5mg 3 Ml Ampul.Neb) 3 ml INHALE Q3H PRN PRN Reason: sob Last Admin: 08/29/23 20:51 Dose: 3 ml Documented By: ROGELIO Albuterol/Ipratropium (Albuterol/Iprat 2.5/0.5mg 3 Ml Ampul.Neb) 3 ml INHALE Q4H [facility] Last Admin: 09/04/23 07:38 Dose: 3 ml Documented By: MELYSSA Aspirin (Aspirin 81 Mg Tab.Chew) 81 mg PO DAILY [facility] Last Admin: 09/04/23 08:12 Dose: 81 mg Documented By: CHIP Carvedilol (Carvedilol 6.25 Mg Tablet) 6.25 mg PO BID [facility]; Protocol Last Admin: 09/04/23 08:12 Dose: 6.25 mg Documented By: CHIP Clopidogrel Bisulfate (Clopidogrel Bisulfate 75 Mg Tablet) 75 mg PO DAILY [facility] Last Admin: 09/04/23 08:14 Dose: 75 mg Documented By: CHIP Dextrose (Dextrose 50 % 25 Gm/50 Ml Syringe) 25 gm IVPUSH Q15M PRN; Protocol PRN Reason: per Hypoglycemia Standing Ord. Docusate Sodium (Docusate Sodium 100 Mg Capsule) 100 mg PO BEDTIME [facility] Last Admin: 09/03/23 20:12 Dose: 100 mg Documented By: FARA Famotidine (Famotidine 20 Mg Tablet) 20 mg PO DAILY [facility] Last Admin: 09/04/23 08:13 Dose: 20 mg Documented By: CHIP Fentanyl (Fentanyl Citrate/Pf 100 Mcg/2 Ml Vial) 25 mcg IVPUSH Q5M PRN; Protocol PRN Reason: Pain, Moderate(Pain Scale 4-6) Furosemide (Furosemide 20 Mg Tablet) 20 mg PO DAILY [facility]; Protocol Last Admin: 09/04/23 08:12 Dose: 20 mg Documented By: CHIP Glucose (Glucose Gel 15 Gm Gel..Gram.) 15 gm PO Q15M PRN; Protocol PRN Reason: per Hypoglycemia Standing Ord. Hydralazine HCl (Hydralazine Hcl 20 Mg/Ml Vial) 5 mg IVPUSH Q6H PRN; Protocol PRN Reason: SBP>180 Last Admin: 09/02/23 12:01 Dose: 5 mg Documented By: JORGE LUIS Hydralazine HCl (Hydralazine Hcl 50 Mg Tablet) 50 mg PO BID [facility]; Protocol Last Admin: 09/04/23 08:11 Dose: 50 mg Documented By: CHIP Cefepime HCl 2 gm/ Sodium (Chloride) 50 mls @ 100 mls/hr IV Q12H [facility] Last Infusion: 09/04/23 07:05 Dose: Infused Documented By: CHIP Insulin Glargine (Insulin Glargine,Hum.Rec.Anlog 100 Unit/Ml 10 Ml Vial) 20 unit SUBCUT BEDTIME [facility] Last Admin: 09/03/23 20:13 Dose: 20 unit Documented By: FARA Insulin Human Lispro (Insulin Lispro 100 Unit/Ml 3 Ml Vial) 0 unit SUBCUT QIDACHS [facility]; Protocol Last Admin: 09/04/23 07:47 Dose: Not Given Documented By: CHIP Non-Admin Reason: No Insulin Coverage Isosorbide Mononitrate (Isosorbide Mononitrate 60 Mg Tab.Er.24h) 60 mg PO DAILY [facility]; Protocol Last Admin: 09/04/23 08:11 Dose: 60 mg Documented By: CHIP Linezolid (Linezolid 600 Mg Tablet) 600 mg PO Q12H [facility] Last Admin: 09/04/23 06:35 Dose: 600 mg Documented By: SELIN Melatonin (Melatonin 3 Mg Tablet) 6 mg PO BEDTIME PRN PRN Reason: Insomnia Last Admin: 08/28/23 22:42 Dose: 6 mg Documented By: JOHNNY Metronidazole (Metronidazole 500 Mg Tablet) 500 mg PO Q12H [facility] Last Admin: 09/04/23 00:02 Dose: 500 mg Documented By: SELIN Morphine Sulfate (Morphine Sulfate 4 Mg/Ml Cartridge) 4 mg IVPUSH Q2H PRN; Protocol PRN Reason: Pain, Severe (Pain Scale 7-10) Multivitamins/Vitamin C (Multivitamin Tablet) 1 tab PO DAILY [facility] Last Admin: 09/04/23 08:13 Dose: 1 tab Documented By: CHIP Ondansetron HCl (Ondansetron Hcl 4 Mg/2 Ml Vial) 4 mg IVPUSH Q8H PRN PRN Reason: Nausea and Vomiting Ondansetron HCl (Ondansetron Hcl 4 Mg/2 Ml Vial) 4 mg IVPUSH ONCE PRN PRN Reason: Nausea and Vomiting Oxycodone HCl (Oxycodone Hcl Immed Release 5 Mg Tablet) 5 mg PO Q4H PRN PRN Reason: Pain, Moderate(Pain Scale 4-6) Last Admin: 09/04/23 06:37 Dose: 5 mg Documented By: SELIN Polyethylene Glycol (Polyethylene Glycol 3350 17 Gm Powd.Pack) 17 gm PO DAILY [facility] Last Admin: 09/04/23 08:15 Dose: 17 gm Documented By: CHIP Sodium Chloride (0.9 % Sodium Chloride Flush 3 Ml Syringe) 3 ml IVFLUSH QSHIFT [facility] Last Admin: 09/04/23 08:14 Dose: 3 ml Documented By: CHIP Labs 09/01/23 05:50 09/04/23 03:38 Labs: Laboratory Results - last 24 hr 09/03/23 09/03/23 09/03/23 11:01 15:51 21:05 Anion Gap Estim Creat Clear Calc Estimated GFR POC Glucose 168 H 144 H 218 H Random Glucose Calcium 09/04/23 09/04/23 03:38 07:22 Anion Gap 11 L Estim Creat Clear Calc 23.8 Estimated GFR 27 POC Glucose 129 H Random Glucose 134 H Calcium 8.5 Procedures Date of Service Date of Service: 09/04/23 Progress Note: A&P Assessment and plan (1) Osteomyelitis: Status: Acute (2) Diabetic ulcer of toe: Status: Acute Plan POD #4 s/p transmetatarsal amputation right foot. Ischemic changes on plantar surface, incision remains intact. Continue local wound care. Avoid any weight on right foot. Time Spent With Patient Time: Total time managing care of this patient today ____ minutes. Quality Stroke Does the patient have a stroke diagnosis?: No VTE Prior VTE?: No VTE Risk Level:: Medical - moderate - high VTE Device Contraindication: Treatment Not Indicated VTE Drug Contraindication: N/A - Med Ordered
--- NOTE | 2023-09-04 10:19 | HO.PM.IMPN ---
Subjective Subjective Date of Service: 09/04/23 Interval History: s/p transmet amp Review of Systems denies any new pain or sob Physical Exam Vital Signs: Vital Signs: Last Vital Signs Temp 97.2 F 09/04/23 07:13 Pulse 71 09/04/23 07:40 Resp 18 09/04/23 07:40 BP 141/67 H 09/04/23 09:59 Pulse Ox 95 09/04/23 07:13 O2 Del Method Room Air 09/04/23 07:13 O2 Flow Rate 2 08/31/23 14:31 BMI result Body Mass Index 31.3 Objective Data Active Medications Acetaminophen (Acetaminophen 325 Mg Tablet) 650 mg PO Q6H PRN PRN Reason: Pain, Mild (Pain Scale 1-3) Last Admin: 09/04/23 08:19 Dose: 650 mg Documented By: CHIP Albuterol/Ipratropium (Albuterol/Iprat 2.5/0.5mg 3 Ml Ampul.Neb) 3 ml INHALE Q3H PRN PRN Reason: sob Last Admin: 08/29/23 20:51 Dose: 3 ml Documented By: ROGELIO Albuterol/Ipratropium (Albuterol/Iprat 2.5/0.5mg 3 Ml Ampul.Neb) 3 ml INHALE Q4H [facility] Last Admin: 09/04/23 07:38 Dose: 3 ml Documented By: MELYSSA Aspirin (Aspirin 81 Mg Tab.Chew) 81 mg PO DAILY [facility] Last Admin: 09/04/23 08:12 Dose: 81 mg Documented By: CHIP Carvedilol (Carvedilol 6.25 Mg Tablet) 6.25 mg PO BID [facility]; Protocol Last Admin: 09/04/23 08:12 Dose: 6.25 mg Documented By: CHIP Clopidogrel Bisulfate (Clopidogrel Bisulfate 75 Mg Tablet) 75 mg PO DAILY [facility] Last Admin: 09/04/23 08:14 Dose: 75 mg Documented By: CHIP Dextrose (Dextrose 50 % 25 Gm/50 Ml Syringe) 25 gm IVPUSH Q15M PRN; Protocol PRN Reason: per Hypoglycemia Standing Ord. Docusate Sodium (Docusate Sodium 100 Mg Capsule) 100 mg PO BEDTIME [facility] Last Admin: 09/03/23 20:12 Dose: 100 mg Documented By: FARA Famotidine (Famotidine 20 Mg Tablet) 20 mg PO DAILY [facility] Last Admin: 09/04/23 08:13 Dose: 20 mg Documented By: CHIP Fentanyl (Fentanyl Citrate/Pf 100 Mcg/2 Ml Vial) 25 mcg IVPUSH Q5M PRN; Protocol PRN Reason: Pain, Moderate(Pain Scale 4-6) Furosemide (Furosemide 20 Mg Tablet) 20 mg PO DAILY [facility]; Protocol Last Admin: 09/04/23 08:12 Dose: 20 mg Documented By: CHIP Glucose (Glucose Gel 15 Gm Gel..Gram.) 15 gm PO Q15M PRN; Protocol PRN Reason: per Hypoglycemia Standing Ord. Hydralazine HCl (Hydralazine Hcl 20 Mg/Ml Vial) 5 mg IVPUSH Q6H PRN; Protocol PRN Reason: SBP>180 Last Admin: 09/02/23 12:01 Dose: 5 mg Documented By: JORGE LUIS Hydralazine HCl (Hydralazine Hcl 50 Mg Tablet) 50 mg PO BID [facility]; Protocol Last Admin: 09/04/23 08:11 Dose: 50 mg Documented By: CHIP Cefepime HCl 2 gm/ Sodium (Chloride) 50 mls @ 100 mls/hr IV Q12H [facility] Last Infusion: 09/04/23 07:05 Dose: Infused Documented By: CHIP Insulin Glargine (Insulin Glargine,Hum.Rec.Anlog 100 Unit/Ml 10 Ml Vial) 20 unit SUBCUT BEDTIME [facility] Last Admin: 09/03/23 20:13 Dose: 20 unit Documented By: FARA Insulin Human Lispro (Insulin Lispro 100 Unit/Ml 3 Ml Vial) 0 unit SUBCUT QIDACHS [facility]; Protocol Last Admin: 09/04/23 07:47 Dose: Not Given Documented By: CHIP Non-Admin Reason: No Insulin Coverage Isosorbide Mononitrate (Isosorbide Mononitrate 60 Mg Tab.Er.24h) 60 mg PO DAILY [facility]; Protocol Last Admin: 09/04/23 08:11 Dose: 60 mg Documented By: CHIP Linezolid (Linezolid 600 Mg Tablet) 600 mg PO Q12H [facility] Last Admin: 09/04/23 06:35 Dose: 600 mg Documented By: SELIN Melatonin (Melatonin 3 Mg Tablet) 6 mg PO BEDTIME PRN PRN Reason: Insomnia Last Admin: 08/28/23 22:42 Dose: 6 mg Documented By: JOHNNY Metronidazole (Metronidazole 500 Mg Tablet) 500 mg PO Q12H [facility] Last Admin: 09/04/23 00:02 Dose: 500 mg Documented By: SELIN Morphine Sulfate (Morphine Sulfate 4 Mg/Ml Cartridge) 4 mg IVPUSH Q2H PRN; Protocol PRN Reason: Pain, Severe (Pain Scale 7-10) Multivitamins/Vitamin C (Multivitamin Tablet) 1 tab PO DAILY [facility] Last Admin: 09/04/23 08:13 Dose: 1 tab Documented By: CHIP Ondansetron HCl (Ondansetron Hcl 4 Mg/2 Ml Vial) 4 mg IVPUSH Q8H PRN PRN Reason: Nausea and Vomiting Ondansetron HCl (Ondansetron Hcl 4 Mg/2 Ml Vial) 4 mg IVPUSH ONCE PRN PRN Reason: Nausea and Vomiting Oxycodone HCl (Oxycodone Hcl Immed Release 5 Mg Tablet) 5 mg PO Q4H PRN PRN Reason: Pain, Moderate(Pain Scale 4-6) Last Admin: 09/04/23 06:37 Dose: 5 mg Documented By: SELIN Polyethylene Glycol (Polyethylene Glycol 3350 17 Gm Powd.Pack) 17 gm PO DAILY [facility] Last Admin: 09/04/23 08:15 Dose: 17 gm Documented By: CHIP Sodium Chloride (0.9 % Sodium Chloride Flush 3 Ml Syringe) 3 ml IVFLUSH QSHIFT [facility] Last Admin: 09/04/23 08:14 Dose: 3 ml Documented By: CHIP Labs 09/01/23 05:50 09/04/23 03:38 Labs: Laboratory Results - last 24 hr 09/03/23 09/03/23 09/03/23 11:01 15:51 21:05 Anion Gap Estim Creat Clear Calc Estimated GFR POC Glucose 168 H 144 H 218 H Random Glucose Calcium 09/04/23 09/04/23 03:38 07:22 Anion Gap 11 L Estim Creat Clear Calc 23.8 Estimated GFR 27 POC Glucose 129 H Random Glucose 134 H Calcium 8.5 Assessment and Plan (1) Hyponatremia: Status: Acute (2) Hyperkalemia: Status: Acute (3) Acute kidney injury: Status: Acute (4) Acute systolic CHF (congestive heart failure): Status: Acute Plan 72-year-old female with pertinent history of peripheral arterial disease status left BKA, essential hypertension, insulin-dependent diabetes mellitus who presents to the emergency department for evaluation of right foot toe discoloration, swelling and discharge. Sepsis due to right foot cellulitis, diabetic foot infection with wet gangrene of the 2nd toe Peripheral arterial disease: Imaging with severe stenosis in the distal right superior femoral artery and occlusion of the distal right posterior tibial artery. Vascular consular s/p angio: s/p right peroneal plasty,sfa plasty on 08/28, and s/p TMA on 09/01/23. blood cultures neg ,pathology 08/31/23 -still pending intially was on vanco/cefepime -switched to linezolid and cefepime ( due to hx of elevated cpk can not get dapto, also her vanco levels were 21 ,so vanco discotninued on 08/30). continue antiobiotics until seen by vascular . avoid pressure on amputation site. hyponatremia,hyperkalemia ,also possible ginny vs ckd:multifactorial( conrast ,sepsis ,also boserline elevated vanco levels might have contributed ) base line cr between 1.3 to 1.5 ,today is 1.8 nephro eval-due to multiple electrolytes abnormalities ,also ginny , insetting of cxr -?mild congestion. d/w nephrology -hyponatremia improvin(possible due to chf ,also her serum osmolarity<urine osm) with lasix and fluid resritctions cr slowly trending up,moniter renal function and electrolytes nephrology follwing posible Chf with reduced ef: Cxr: mild congestion( may be due to received fluids ) BNP is 560 Echo: 1. Moderately reduced LV ejection fraction 35-40% with grade 3 diastolic dysfunction 2. At least mildly dilated left atrium 3. Omqz-xf-vvyxuezy mitral regurgitation 4. Moderately elevated right ventricular systolic pressure mildly elevated right atrial pressures 5. Trivial pericardial effusion plan: moniter i/o daily weight mild intermittent hypoxia-but does not seem short of breath this morning recieved iv lasix ,,diursed ,?i/o not clearcut patient currently seems to be improving nephrology and cardiology following- now switching to po lasix, in addition adjusted hydralazine and coreg( maximise hydralazine/imdur rx as needed). elevated creatinine and mild hyperkalemia would avoid spironolactone therapy. outpatient ischemic workup given that she has peripheral vascular disease and multiple risk factors for obstructive coronary artery disease in development of myocardial ischemia. Normocytic anemia, likely due to chronic inflammation: Hemoglobin above transfusion threshold. patient keep refusing transfusion h/h flactuating in 7.4 range moniter cbc . Insulin-dependent diabetes mellitus: POC, sliding scale, diabetic diet uncontrolled HTN: continue coreg,hydralazine ,imdur Transaminitis: Due to sepsis, monitor LFTs, hold Lipitor DVT prophylaxis: Lovenox on hold due anemia /small ?hemtoma at surgery foot area. Pt recomended rehab. onging Need for inpatient care : IV Abx for diabetic foot gangrene s/p amputation,need renal function monitoring as well as need surgery follow up for hematoma at site . Quality Stroke Does the patient have a stroke diagnosis?: No VTE Prior VTE?: No VTE Risk Level:: Medical - moderate - high VTE Device Contraindication: Treatment Not Indicated VTE Drug Contraindication: N/A - Med Ordered
[2023-09-04] MEDS: Ferrous Sulfate 300 MG/5 ML LIQUID PO ×2 (10:50→17:09)
[2023-09-04 11:12] LABS: Glucose, Whole Blood 121 mg/dL (60-115)
--- NOTE | 2023-09-04 12:02 | MHC.CLN ---
NUTRITION LOW POTASSIUM DISCONTINUED TO ALLOW FOR INCREASED FOOD CHOICES. LABS REVIEWED. POTASSIUM WNL X 3 DAYS. CONTINUE DIABETIC 2200 KCAL WITH 1500 ML FLUID RESTRICTION. PATIENT WITH TRANSMETATARSAL AMP ON RIGHT FOOT. PER NURSING ASSESSMENT 09/04, DTI RIGHT LOWER EXTREMITY. PATIENT WITH HX OF CELLULITIS, OSTEOMYELITIS AND DM ULCERS. INTAKE USUALLY 50-100%. CONTINUE TO MONITOR WOUND STATUS.
--- NOTE | 2023-09-04 13:26 | MHC.CM.PN ---
EMR REVIEWED AND PER MD ROUNDS, PT IS NOT MEDICALLY CLEARED FOR DC. PT HAS BEEN ACCEPTED AT [facility] FOR [facility]. PT IS AGREEABLE. MESSAGE LEFT FOR HCP/DAUGHTER JOS REGARDING PLAN. AWAITING RETURN CALL. CM WILL CONTINUE TO FOLLOW FOR ANY CHANGE IN DC PLAN/NEEDS.
[2023-09-04 14:47] LABS: Alanine Aminotransferase 25 U/L (0-31); Albumin Level 2.3 g/dL (3.5-5.0); Alkaline Phosphatase 165 U/L (39-117); Aspartate Amino Transferase 19 U/L (5-31); Bilirubin Direct 0.1 mg/dL (0.0-0.5); Total Protein 6.5 g/dL (6.5-8.0)
[2023-09-04 14:55] LABS: Bilirubin Total 0.1 mg/dL (0.0-1.0)
[2023-09-04 16:15] LABS: Glucose, Whole Blood 114 mg/dL (60-115)
[2023-09-04] MEDS: Docusate Sodium 100 MG CAPSULE PO (20:28)
[2023-09-04 20:48] LABS: Glucose, Whole Blood 153 mg/dL (60-115)
[2023-09-04] MEDS: Insulin Glargine,Hum.rec.anlog 100 UNIT/ML 10 ML VIAL 20 UNIT SUBCUT (21:03)
[2023-09-04] MEDS: Insulin Lispro 100 UNIT/ML 3 ML VIAL SUBCUT (21:04)
[2023-09-05 03:22] VITALS: BP 157/72; PULSE 69; RESP 16; TEMP 36.4; O2SAT 96
[2023-09-05] MEDS: Linezolid 600 MG TABLET PO (05:13)
[2023-09-05 06:00] VITALS: BMI 32.5
[2023-09-05 07:25] LABS: Glucose, Whole Blood 96 mg/dL (60-115)
[2023-09-05] MEDS: Albuterol/Iprat 2.5/0.5MG 3 ML AMPUL.NEB INHALE ×2 (07:25→11:12)
[2023-09-05 07:29] VITALS: PULSE 68; RESP 18; O2SAT 98
[2023-09-05 07:39] LABS: Hematocrit 24.4 % (37.0-47.0); Hemoglobin 7.5 g/dl (12.0-16.0)
[2023-09-05 07:46] VITALS: BP 163/77; PULSE 65; RESP 17; TEMP 36.3; O2SAT 97
[2023-09-05 07:59] LABS: Alanine Aminotransferase 22 U/L (0-31); Albumin Level 2.5 g/dL (3.5-5.0); Alkaline Phosphatase 164 U/L (39-117); Anion Gap 11 (12-20); Aspartate Amino Transferase 18 U/L (5-31); Bilirubin Direct < 0.2 mg/dL (0.0-0.5); Bilirubin Total 0.2 mg/dL (0.0-1.0); Blood Urea Nitrogen 31 mg/dL (9-16); Carbon Dioxide 24 mmol/L (22-29); Chloride 102 mmol/L (96-108); Creatinine Clr Calc Pharmacy 24.9; Estimated Glomerular Filt Rate 28; Glucose Random 94 mg/dL (60-115); Potassium 5.1 mmol/L (3.3-5.1); Sodium 132 mmol/L (135-145); Total Protein 7.1 g/dL (6.5-8.0)
[2023-09-05] MEDS: 0.9 % Sodium Chloride Flush 3 ML SYRINGE IVFLUSH (08:19)
[2023-09-05] MEDS: Ferrous Sulfate 300 MG/5 ML LIQUID PO ×2 (08:19→11:33)
[2023-09-05] MEDS: polyethylene glycoL 3350 17 GM POWD.PACK PO (08:19)
[2023-09-05] MEDS: hydrALAZINE HCl 50 MG TABLET PO (08:20)
[2023-09-05] MEDS: Isosorbide Mononitrate 60 MG TAB.ER.24H PO (08:20)
[2023-09-05] MEDS: Aspirin 81 MG TAB.CHEW PO (08:20)
[2023-09-05] MEDS: Multivitamin TABLET 1 TAB PO (08:20)
[2023-09-05] MEDS: Clopidogrel Bisulfate 75 MG TABLET PO (08:20)
[2023-09-05] MEDS: Famotidine 20 MG TABLET PO (08:21)
[2023-09-05] MEDS: carvediloL 6.25 MG TABLET PO (08:21)
[2023-09-05] MEDS: Furosemide 20 MG TABLET PO (08:21)
--- NOTE | 2023-09-05 10:18 | PM.DS ---
DS: Providers Provider Date of Service: 09/05/23 Date of admission: 08/24/23 19:48 Primary care physician: Unknown Physician Consults: 08/24/23 19:53 Consult to Vascular Surgery Routine Consulting Provider: [facility] Reason for consultation: wet gangrene 08/25/23 12:54 Consult to Wound Care Routine Reason for consultation: Right foot ulcer 08/30/23 14:34 Consult to Nephrology Routine Consulting Provider: [facility] Reason for consultation: ginny on ckd,hyperkalemia ,pulm congestion(?chf) Has provider been notified: No 08/30/23 14:40 Consult to Infectious Diseases Routine Consulting Provider: Kristy Carreno Reason for consultation: dm foot infection 08/31/23 04:49 Consult to Cardiology Routine Consulting Provider: [facility] Reason for consultation: Acute systolic CHF DS: Diagnosis Discharge Diagnosis (1) Hyponatremia: Status: Resolved (2) Hyperkalemia: Status: Resolved (3) Acute kidney injury: Status: Resolved (4) Acute systolic CHF (congestive heart failure): Status: Resolved DS: Summary Hospital Course Hospital Course: Chief Complaint: Toe discoloration This is a 72-year-old female with pertinent history of peripheral arterial disease status left BKA, essential hypertension, insulin-dependent diabetes mellitus who presents to the emergency department for evaluation of right foot toe discoloration, swelling and discharge. History obtained from son at bedside. The son states that this has been ongoing since the starting of July. He has noticed discoloration of the right 2nd toe with intermittent purulent drainage. Also has associated redness and swelling. No fever or chills. Patient denies pain with ambulation. No chest discomfort, palpitations, shortness of breath, abdominal pain, changes in urinary or bowel habits. In the emergency department, patient was found to be septic and initiated on empiric IV antibiotics. Imaging with severe stenosis in the distal right superior femoral artery and occlusion of the distal right posterior tibial artery Hospital course: She presented with sepsis due to right foot cellulitis, diabetic foot infection with wet gangrene of the 2nd toe that was deemed not curable with antibiotics and therefore underwent transmetarsal ampuation of the rith foot on 08/31/[address] Puentes after angiogram with /p right peroneal plasty,sfa plasty on 08/28. She is recovering as expected. She was initially treated with antibiotics but no longer needs antibiotics. She is to have dressing change as specified by Dr. Puentes Peripheral arterial disease: s/p right peroneal plasty,sfa plasty on 08/28. continue ASA, Plavix Diabetes--controlled, continue Lantus and SSI HTN-Controlled, continue Coreg 6.25 bid, Mdur 60 mg and Hydralazine 50 bid Mild hyponatremia: repeat following IVF Hyperkalemia, treated with lokelma and resolved, Losartan stopped Normocytic anemia, likely due to chronic inflammation: Hemoglobin on to and has decline transfusion Stage 3B Moderate CKD (GFR = 30-44 mL/min), stable Transaminitis: Due to sepsis, monitor LFTs, hold Lipitor Time Attestation Discharge coordination time: Greater than 30 minutes Quality: Safe Use of Opioids Does Pt have an Active Cancer Diagnosis on the Problem List?: No Quality: Stroke Does the patient have a stroke diagnosis?: No Physical Exam Vital Signs: Vital Signs: Last Vital Signs Temp 97.4 F 09/05/23 07:46 Pulse 65 09/05/23 07:46 Resp 17 09/05/23 07:46 BP 163/77 H 09/05/23 07:46 Pulse Ox 97 09/05/23 07:46 O2 Del Method Room Air 09/05/23 07:46 O2 Flow Rate 2 08/31/23 14:31 BMI result Body Mass Index 32.5 DS: Data Data Completed and Pending Completed studies during hospitalization [Text1]: Pending at discharge 08/31/23 11:06 Surgical [PTH] Routine Procedures Insertion of Infusion Device into Superior Vena Cava, Percutaneous Approach (10/21/22) Ultrasonography of Superior Vena Cava, Guidance (10/21/22) Labs on day of discharge: Laboratory Results - last 24 hr 09/04/23 09/04/23 09/04/23 03:38 07:57 11:07 Hgb Hct Sodium Potassium Chloride Carbon Dioxide Anion Gap BUN Creatinine Estim Creat Clear Calc Estimated GFR POC Glucose 121 H Random Glucose Calcium Total Bilirubin 0.1 Direct Bilirubin 0.1 AST 19 ALT 25 Alkaline Phosphatase 165 H B-Natriuretic Peptide Cancelled Total Protein 6.5 Albumin 2.3 L 09/04/23 09/04/23 09/05/23 16:08 20:43 06:03 Hgb 7.5 L Hct 24.4 L Sodium 132 L Potassium 5.1 Chloride 102 Carbon Dioxide 24 Anion Gap 11 L BUN 31 H Creatinine 1.77 H Estim Creat Clear Calc 24.9 Estimated GFR 28 POC Glucose 114 153 H Random Glucose 94 Calcium 9.0 Total Bilirubin 0.2 Direct Bilirubin < 0.2 AST 18 ALT 22 Alkaline Phosphatase 164 H B-Natriuretic Peptide Total Protein 7.1 Albumin 2.5 L 09/05/23 07:17 Hgb Hct Sodium Potassium Chloride Carbon Dioxide Anion Gap BUN Creatinine Estim Creat Clear Calc Estimated GFR POC Glucose 96 Random Glucose Calcium Total Bilirubin Direct Bilirubin AST ALT Alkaline Phosphatase B-Natriuretic Peptide Total Protein Albumin Discharge Plan Discharge Anticipated Discharge Date/Time: 09/05/23 12:29 Patient Disposition: [facility] Discharge Diagnosis: Diabetic foot ulcer, periphera vascular disease Referrals: [facility] [Outside] - 1 Week (TRANSFER FOR SHORT TERM REHAB) Physician,Unknown J [Primary Care Provider] - 1 Week Discharge Medications: New carvedilol 6.25 mg Tablet 6.25 mg PO BID Qty: 60 0RF Protocol: Hold for SBP/HR < HOLD for SBP < : 90 HOLD for HR < : 60 ipratropium-albuterol 0.5 mg-3 mg(2.5 mg base)/3 mL Solution For Nebulization 3 ml inhalation Q3H PRN (Reason: sob) Qty: 90 0RF insulin glargine [Lantus U-100 Insulin] 100 unit/mL Solution 20 unit subcut BEDTIME Qty: 10 0RF polyethylene glycol 3350 17 gram Powder In Packet 17 g PO DAILY Qty: 30 0RF melatonin 3 mg Tablet 6 mg PO BEDTIME PRN (Reason: Insomnia) Qty: 30 0RF clopidogrel 75 mg Tablet 75 mg PO DAILY Qty: 30 0RF isosorbide mononitrate 60 mg Tablet Extended Release 24 Hr 60 mg PO DAILY Qty: 60 0RF Protocol: Hold for SBP< HOLD for SBP < : 90 famotidine 20 mg Tablet 20 mg PO DAILY Qty: 30 0RF ferrous sulfate 300 mg (60 mg iron)/5 mL Liquid 300 mg PO TIDWM Qty: 30 0RF docusate sodium 100 mg Capsule 100 mg PO BEDTIME Qty: 30 0RF hydralazine 50 mg Tablet 50 mg PO BID Qty: 60 0RF Protocol: Hold for SBP< HOLD for SBP < : 90 insulin lispro [Admelog U-100 Insulin lispro] 100 unit/mL Solution See Protocol subcut QIDACHS Qty: 10 0RF Protocol: Insulin Correction Scale Less than or equal to 110 ---- Give (units): 0 111 to 150 Give (units): 0 151 to 200 Give (units): 2 201 to 250 Give (units): 4 251 to 300 Give (units): 6 301 to 350 Give (units): 8 Greater than 350 Give (units): 10 Call MD if Blood Glucose > : 350 oxycodone 5 mg Tablet 5 mg PO Q4H PRN (Reason: Pain, Moderate(Pain Scale 4-6)) Qty: 20 0RF Rx Instructions: Partial Fill upon patient request. Continued aspirin 81 mg tablet,chewable 81 mg PO DAILY multivitamin Tablet 1 tab PO DAILY Discontinued (DME) blood sugar diagnostic Strip See Rx Instructions Not Applicable TID Qty: 10 Rx Instructions: As directed (DME) lancets 28 gauge misc See Rx Instructions topical TID Qty: 100 Rx Instructions: As directed insulin aspart U-100 100 unit/mL (3 mL) insulin pen 20 unit subcut TIDAC (DME) pen needle, diabetic 31 gauge x 1/4 needle See Rx Instructions .ROUTE .MEDSUPPLY Qty: 50 Rx Instructions: As directed Tresiba FlexTouch U-200 200 unit/mL (3 mL) insulin pen 60 unit subcut BEDTIME (DME) pen needle, diabetic 31 gauge x 15/64 needle See Rx Instructions .ROUTE .MEDSUPPLY Qty: 50 Rx Instructions: As directed Discharge Orders: Discharge Order (Routine); Ordered 09/05/23 Ordered By: Leno Fowler Diet: Diabetic diet Activity on Discharge: As tolerated Stand Alone Forms: Patient Portal Discharge page Activity Restrictions/Additional Instructions: Wound care upon discharge: xeroform, 4x4 and Kerlix wrap to be changed daily. Please call Dr. Puentes at [phone] for 2 week follow up for suture and staple removal Care Plan Goals: full recovery from ampuation surgery Health Concerns: peripheral vascular disease, diabetic foot ulcer Plan of Treatment: wound care as above and follow up with DR. puentes insulin has been changed to Lantus and Sliding Insulin To short term rehab for less than 30 days Assessment: See above Discharge Date/Time: 09/05/23 13:09
--- NOTE | 2023-09-05 10:47 | MHC.CM.PN ---
DP: PT HAS BEEN MEDICALLY CLEARED FOR DC TO SHORT TERM REHAB AT [facility]. PT/ DAUGHTER(HCP) JOS ARE AGREEABLE TO PLAN. DAUGHTER UPDATED ON TIME OF DC TO SNF VIA TELEPHONE MESSAGE. RN/MD AWARE. BLS TRANSPORT BOOKED FOR 12:30 PM [facility]IA [facility]. IMM ADDRESSED.
[2023-09-05 11:13] VITALS: PULSE 70; RESP 18; O2SAT 97
[2023-09-05 11:27] LABS: Glucose, Whole Blood 109 mg/dL (60-115)
[2023-09-05] MEDS: metroNIDAZOLE 500 MG TABLET PO (11:34)
--- NOTE | 2023-09-05 12:46 | P.PNNP_ITS ---
Subjective Subjective Date of Service: 09/05/23 Interval history: s/p transmet amp; All recent data reviewed Physical Exam 2 Vital Signs: Vital Signs: Last Vital Signs Temp 97.4 F 09/05/23 07:46 Pulse 70 09/05/23 11:13 Resp 18 09/05/23 11:13 BP 163/77 H 09/05/23 07:46 Pulse Ox 97 09/05/23 07:46 O2 Del Method Room Air 09/05/23 07:46 O2 Flow Rate 2 08/31/23 14:31 BMI result Body Mass Index 32.5 Const: General: comfortable and no acute distress O rientation/consciousness: patient oriented x3 HEENT: Head: Yes normocephalic Mouth: Normal oral and palatal mucosa present Eyes: EOM: EOMs intact bilaterally Neck: Neck: Yes supple Resp: Auscultation: clear to auscultation bilaterally Cardio: Jugular venous distension: no JVD Rate: regular rate GI: Palpation (GI): Soft to palpation Auscultation: normal bowel sounds : General: Yes no CVA tenderness Back/Spine/Pelvis: Back: no CVA tenderness Skin: General skin exam: no rashes or lesions noted Neuro: General: patient oriented x3 and moves all extremities Extrem: General: Yes no pedal edema Objective Data Labs 09/05/23 06:03 09/05/23 06:03 Labs: Laboratory Results - last 24 hr 09/04/23 09/04/23 09/04/23 03:38 07:57 16:08 Hgb Hct Sodium Potassium Chloride Carbon Dioxide Anion Gap BUN Creatinine Estim Creat Clear Calc Estimated GFR POC Glucose 114 Random Glucose Calcium Total Bilirubin 0.1 Direct Bilirubin 0.1 AST 19 ALT 25 Alkaline Phosphatase 165 H B-Natriuretic Peptide Cancelled Total Protein 6.5 Albumin 2.3 L 09/04/23 09/05/23 09/05/23 20:43 06:03 07:17 Hgb 7.5 L Hct 24.4 L Sodium 132 L Potassium 5.1 Chloride 102 Carbon Dioxide 24 Anion Gap 11 L BUN 31 H Creatinine 1.77 H Estim Creat Clear Calc 24.9 Estimated GFR 28 POC Glucose 153 H 96 Random Glucose 94 Calcium 9.0 Total Bilirubin 0.2 Direct Bilirubin < 0.2 AST 18 ALT 22 Alkaline Phosphatase 164 H B-Natriuretic Peptide Total Protein 7.1 Albumin 2.5 L 09/05/23 11:22 Hgb Hct Sodium Potassium Chloride Carbon Dioxide Anion Gap BUN Creatinine Estim Creat Clear Calc Estimated GFR POC Glucose 109 Random Glucose Calcium Total Bilirubin Direct Bilirubin AST ALT Alkaline Phosphatase B-Natriuretic Peptide Total Protein Albumin Microbiology Microbiology Results: Microbiology 08/24/23 14:32 Blood - Venous Blood Culture - Final No growth after 5 days. 08/24/23 14:33 Blood - Venous Blood Culture - Final No growth after 5 days. Procedures Date of Service Date of Service: 09/05/23 Assessment & Plan Assessment and plan (1) Acute kidney injury: Status: Acute Plan Belkys has acute kidney injury on a backdrop of chronic kidney disease, due to sepsis as well as contrast from angiography. She also has heart failure. Her vancomycin levels have been high and had been discontinued. Her CKD is likely from vascular disease. There is no reason to suspect [place] infectious glomerulonephritis or AIN. Her urine output is good and it is unlikely that she has obstructive uropathy. I will continue her her rest of her current medications for now . Shall arrange office F/U with me in 4-6 weeks Progress Note: Quality Stroke Does the patient have a stroke diagnosis?: No
--- NOTE | 2023-09-05 12:59 | P.PNVS_ITS ---
Subjective Subjective Date of Service: 09/05/23 Patient reports: no new complaints Interval history: Pleasant 72-year-old Creole female presents for follow-up status post transmetatarsal amputation. Reports no significant changes over the past weekend. Reported that the flap does not appear to be doing relatively well. Now presents for follow-up Physical Exam Vital Signs: Vital Signs: Last Vital Signs Temp 97.4 F 09/05/23 07:46 Pulse 70 09/05/23 11:13 Resp 18 09/05/23 11:13 BP 163/77 H 09/05/23 07:46 Pulse Ox 97 09/05/23 07:46 O2 Del Method Room Air 09/05/23 07:46 O2 Flow Rate 2 08/31/23 14:31 BMI result Body Mass Index 32.5 Const: General: cooperative, healthy appearing and comfortable Orientation/consciousness: oriented to person, oriented to place and oriented to time HEENT: Head: Yes normal to inspection Neck: Neck: Yes normal visual inspection Carotids: no bruits Chest: Chest palpation & inspection: normal inspection of the chest Resp: Effort & Inspection: normal respiratory effort and able to speak in complete sentences Auscultation: clear to auscultation bilaterally, no crackles, no rales, no rhonchi and no wheezes Cardio: Rate: regular rate Rhythm: regular rhythm Heart sounds: S1 normal heart sound present and S2 normal heart sound present Bruits: no carotid bruits Peripheral pulses: Peripheral pulses 2+ throughout GI: Inspection: Yes normal to inspection Skin: Other: Trans met amp less than 50% take of amputation site. Wounds: no wounds Hair: normal Neuro: General: oriented to person, oriented to place and oriented to time Cranial nerves: Yes CN's II-XII intact bilaterally and Yes Normal hearing present Cognition (Neuro): normal cognition Motor exam (neuro): 5/5 motor strength present throughout Extrem: Other: venous exam: No significant superficial varicosities or spider t elangiectasias, minimal edema General: No clubbing, No cyanosis and No edema Psych: Appearance: grossly normal Mental Status: mental status grossly normal Speech and movement: Normal speech and movement present Progress Note: A&P Assessment and plan (1) PAD (peripheral artery disease): Status: Acute Assessment and Plan: In short patient has poorly healing trans met amp site. There is less than 50% take of the flap. It does appear that the patient does have some reasonable underlying tissue. I had an extensive discussion with the patient and the patient's daughter by telephone. She is extremely fearful of amputation. I did agree at the current time we can try to manage this conservatively but she is at a very high risk of amputation. I did state that I do believe that this will progress on to an amputation. They were accepting of this. At the current time it does not appear to be acutely infected. Stable from my perspective for discharge. We can see as an outpatient and revisit the need for further amputation as an outpatient. Thank you for allowing us to assist in her care. If there are any questions or concerns please do not hesitate to contact us. Time Spent With Patient Time: Total time managing care of this patient today ____ minutes. Procedures Date of Service Date of Service: 09/05/23 Quality Stroke Does the patient have a stroke diagnosis?: No VTE Prior VTE?: No VTE Risk Level:: Medical - moderate - high VTE Device Contraindication: Treatment Not Indicated VTE Drug Contraindication: N/A - Med Ordered
== END 2023-09-05 13:09 | disposition skilled nursing facility (03) | DRG 853 ==
LOC: HO.ED 18:56 → HO.EDOVER 20:03 → HO.S3 08-25 16:15
PROVIDERS: Internal Medicine; Internal Medicine Nephrology; Surgery Vascular Surgery; Admitting Provider Student in an Organized Health Care Education/Training Program; Emergency Provider Emergency Medicine; Visit Provider Internal Medicine
PROC: 047T3Z1 Dilation of Right Peroneal Artery using Drug-Coated Balloon, Percutaneous Approach (ICD-10-PCS; principal; 2023-08-28 11:00)
PROC: 0Y6M0Z4 Detachment at Right Foot, Complete 1st Ray, Open Approach (ICD-10-PCS; CPT 28805; principal; 2023-08-31 10:00)
DX: A41.9 Sepsis, unspecified organism (principal); I50.21 Acute systolic (congestive) heart failure; I13.0 Hypertensive heart and chronic kidney disease with heart failure and stage 1 through stage 4 chronic kidney disease, or unspecified chronic kidney disease; E11.52 Type 2 diabetes mellitus with diabetic peripheral angiopathy with gangrene; L03.115 Cellulitis of right lower limb; E87.1 Hypo-osmolality and hyponatremia; N17.9 Acute kidney failure, unspecified; M86.9 Osteomyelitis, unspecified; E11.628 Type 2 diabetes mellitus with other skin complications; E11.69 Type 2 diabetes mellitus with other specified complication; E87.5 Hyperkalemia; E11.65 Type 2 diabetes mellitus with hyperglycemia; L97.519 Non-pressure chronic ulcer of other part of right foot with unspecified severity; I70.235 Atherosclerosis of native arteries of right leg with ulceration of other part of foot; N18.32 Chronic kidney disease, stage 3b; E11.22 Type 2 diabetes mellitus with diabetic chronic kidney disease; I34.0 Nonrheumatic mitral (valve) insufficiency; D63.1 Anemia in chronic kidney disease; Z89.512 Acquired absence of left leg below knee; Z95.0 Presence of cardiac pacemaker; Z88.0 Allergy status to penicillin; Z79.4 Long term (current) use of insulin; Z79.02 Long term (current) use of antithrombotics/antiplatelets; Z79.82 Long term (current) use of aspirin; Z79.899 Other long term (current) drug therapy
CPT/HCPCS: 36415; 37224; 37228; 71045; 73630; 76937; 80048; 80053; 80076; 80202; 82533; 82565; 82947; 83605; 83880; 83930; 83935; 84300; 85014; 85018; 85025; 85027; 85652; 86140; 86850; 86900; 86901; 86923; 87040; 88305; 88311; 93005; 93306; 93926; 94640; 97162; 99024; 99152; 99153; 99285; C1725; C1760; C1776; C1887; J0131; J0360; J0692; J1650; J1836; J1940; J2250; J2704; J2930; J3010; J3370; J3371; Q9957

== ENCOUNTER → 2023-08-24 15:59 | Outpatient (BNV) | payer MEDICARE, MEDICAID, SELFPAY | PROVIDERS: Admitting Provider Student in an Organized Health Care Education/Training Program; Emergency Provider Emergency Medicine; Visit Provider Internal Medicine Cardiovascular Disease | DX: R94.31 Abnormal electrocardiogram [ECG] [EKG] (principal) | CPT/HCPCS: 93010 ==

== ENCOUNTER 2023-08-24 19:48 | Outpatient (BNV) | payer MEDICARE, MEDICAID, SELFPAY | END 2023-08-30 07:00 | PROVIDERS: Admitting Provider Student in an Organized Health Care Education/Training Program; Emergency Provider Emergency Medicine; Visit Provider Internal Medicine Cardiovascular Disease | DX: I34.0 Nonrheumatic mitral (valve) insufficiency (principal); I36.1 Nonrheumatic tricuspid (valve) insufficiency | CPT/HCPCS: 93306 ==

== ENCOUNTER → 2023-08-24 19:48 | Outpatient (BNV) | payer MEDICARE, MEDICAID, SELFPAY | PROVIDERS: Admitting Provider Student in an Organized Health Care Education/Training Program; Emergency Provider Emergency Medicine; Visit Provider Surgery Vascular Surgery | DX: I73.9 Peripheral vascular disease, unspecified (principal) | CPT/HCPCS: 28805; 37224; 37228; 75625; 75710; 76937; 99024; 99152; 99222; 99232 ==

== ENCOUNTER → 2023-08-24 19:48 | Outpatient (BNV) | payer MEDICARE, MEDICAID, SELFPAY | PROVIDERS: Admitting Provider Student in an Organized Health Care Education/Training Program; Emergency Provider Emergency Medicine; Visit Provider Internal Medicine | DX: E11.621 Type 2 diabetes mellitus with foot ulcer (principal); L97.509 Non-pressure chronic ulcer of other part of unspecified foot with unspecified severity; L03.115 Cellulitis of right lower limb | CPT/HCPCS: 99222 ==

== ENCOUNTER → 2023-08-24 19:48 | Outpatient (BNV) | payer MEDICARE, MEDICAID, SELFPAY | PROVIDERS: Admitting Provider Student in an Organized Health Care Education/Training Program; Emergency Provider Emergency Medicine; Visit Provider Internal Medicine Nephrology | DX: N17.9 Acute kidney failure, unspecified (principal); N18.9 Chronic kidney disease, unspecified; I50.9 Heart failure, unspecified | CPT/HCPCS: 99223; 99232 ==

== ENCOUNTER → 2023-08-24 19:48 | Outpatient (BNV) | payer MEDICARE, MEDICAID, SELFPAY | PROVIDERS: Admitting Provider Student in an Organized Health Care Education/Training Program; Emergency Provider Emergency Medicine; Visit Provider Internal Medicine Cardiovascular Disease | DX: I50.21 Acute systolic (congestive) heart failure (principal) | CPT/HCPCS: 99222 ==

== ENCOUNTER → 2023-08-24 19:48 | Outpatient (BNV) | payer MEDICARE, MEDICAID, SELFPAY | PROVIDERS: Admitting Provider Student in an Organized Health Care Education/Training Program; Emergency Provider Emergency Medicine; Visit Provider Student in an Organized Health Care Education/Training Program | DX: E87.1 Hypo-osmolality and hyponatremia (principal); E87.5 Hyperkalemia; N17.9 Acute kidney failure, unspecified; I50.21 Acute systolic (congestive) heart failure | CPT/HCPCS: 99223; 99231; 99232; 99239; 99499 ==

== ENCOUNTER 2023-09-13 14:30 | Outpatient (AMB) | payer MEDICARE, MEDICAID, SELFPAY ==
--- NOTE | 2023-09-13 14:40 | MHC.OFFVIS ---
Intake Vital Signs 09/13/23 15:04 BP 165/68 H Blood Pressure Location Lt brachial Position Sitting Pulse 74 Pulse Source Pulse Oximeter Temp 98.3 F Temp Source Oral Pulse Oximetry (%) 98 Intake Visit Reasons: reff hospital fu right foot toe discoloration Cardiopulmonary Technologist Required: Yes Cardiopulmonary Technologist Name: Thony Rodriguez CMA Information Interpreted: clinical only Allergies penicillin V Allergy (Unknown, Verified 11/07/22 13:40) RSH,ITCHY HPI reff hospital fu right foot toe discoloration HPI Details She is doing well. She has no complaints Foot is feeling well. PFSH Medical History Acute systolic CHF (congestive heart failure) PAD (peripheral artery disease) Hypertension Essential hypertension Mood disorder Diabetes History of left below knee amputation Surgical History History of femoral angiogram History of left below knee amputation Pacemaker Social History Household Members: Family and Children Housing: House Unable to assess alcohol history related to: Unknown Alcohol intake: current Alcohol intake frequency: holidays/special occasions only Patient Tobacco Use Status: Never used Tobacco service: No Current occupational status: retired Physical Exam Vital Signs: Last Vital Signs Temp 98.3 F 09/13/23 15:04 Pulse 74 09/13/23 15:04 BP 165/68 H 09/13/23 15:04 Pulse Ox 98 09/13/23 15:04 Const General: cooperative Orientation/consciousness: patient oriented x3 HEENT Head: Yes normal to inspection Mouth: Normal oral and palatal mucosa present Eyes General: appearance normal, both eyes and all related structures Pupils: Equal, round and reactive pupils present Resp Effort & Inspection: normal respiratory effort Cardio Rate: regular rate Rhythm: regular rhythm GI Palpation (GI): Soft to palpation and nontender General: Yes no CVA tenderness Back/Spine/Pelvis Back: no CVA tenderness Skin General skin exam: no rashes or lesions noted Neuro General: patient oriented x3 Cranial nerves: Yes CN's II-XII intact bilaterally and Yes Equal, round and reactive pupils present Extrem General: Yes normal to inspection Psych Appearance: grossly normal Assessment & Plan Assessment & Plan (1) PAD (peripheral artery disease): Comment: She has no complaints and looks as though no acute issues Code(s): I73.9 - Peripheral vascular disease, unspecified Plan: Follow as needed prn need. Maintain good foot care. (2) History of left below knee amputation: Code(s): Z89.512 - Acquired absence of left leg below knee Plan: per above Plan per above Coding Level of Care Code Est Pt Level 3 (35630) Diagnoses PAD (peripheral artery disease) I73.9 History of left below knee amputation Z89.512
[2023-09-13 15:04] VITALS: BP 165/68; PULSE 74; TEMP 36.8; O2SAT 98
== END 2023-09-13 15:26 | disposition home or self-care (01) ==
LOC: HO.HID 14:31
PROVIDERS: Visit Provider Internal Medicine
DX: I73.9 Peripheral vascular disease, unspecified (principal); Z89.512 Acquired absence of left leg below knee
CPT/HCPCS: 99213

== ENCOUNTER → 2023-09-13 14:30 | Outpatient (BNVA) | payer MEDICARE, MEDICAID, SELFPAY | PROVIDERS: Visit Provider Internal Medicine | DX: I73.9 Peripheral vascular disease, unspecified (principal); Z89.512 Acquired absence of left leg below knee | CPT/HCPCS: 99212 ==

== ENCOUNTER 2023-09-21 09:43 | Outpatient (AMB) | payer MEDICARE, MEDICAID, SELFPAY ==
--- NOTE | 2023-09-21 09:47 | MHC.OFFVIS ---
Intake Intake Visit Reasons: 2 week follow up toe amp Intake Note: Right Transmet amp 08/31/23 post op, currently at [facility], had dry dressing Insurance Sales Supervisor Required: Yes Insurance Sales Supervisor Language: Florecita Dos Santos Insurance Sales Supervisor Name: Deandre Accompanied by: Son Allergies penicillin V Allergy (Unknown, Verified 09/21/23 09:50) RSH,ITCHY HPI 2 week follow up toe amp HPI Details 72-year-old female status post right transmetatarsal amputation presents for follow-up. She has a poorly healing flap. Actually the skin of the flap is actually frankly necrotic. She had been seen by infectious disease. She now presents for routine follow-up. [facility] Medical History Acute systolic CHF (congestive heart failure) PAD (peripheral artery disease) Hypertension Essential hypertension Mood disorder Diabetes History of left below knee amputation Surgical History History of femoral angiogram History of left below knee amputation Pacemaker Social History Household Members: Family and Children Housing: House Unable to assess alcohol history related to: Unknown Alcohol intake: current Alcohol intake frequency: holidays/special occasions only Patient Tobacco Use Status: Never used Tobacco service: No Current occupational status: retired Review of Systems Const All systems reviewed & are unremarkable except as noted in HPI and below Reports no additional complaints ENT Reports Normal hearing present Card Denies chest pain, Denies chest pain at rest, Denies chest pain with activity and Denies pedal edema Resp Denies cough GI Denies abdominal pain Musc Denies abnormal gait, Denies muscle cramps and Denies radiating pain into limb Skin/Breast Denies skin ulcer and Denies wounds Neuro Reports Normal hearing present and Denies abnormal gait Psych Reports no additional complaints Physical Exam Const General: cooperative, healthy appearing and comfortable Orientation/consciousness: oriented to person, oriented to place and oriented to time HEENT Head: Yes normal to inspection Neck Neck: Yes normal visual inspection Carotids: no bruits Chest Chest palpation & inspection: normal inspection of the chest Resp Effort & Inspection: normal respiratory effort and able to speak in complete sentences Auscultation: clear to auscultation bilaterally, no crackles, no rales, no rhonchi and no wheezes Cardio Rate: regular rate Rhythm: regular rhythm Heart sounds: S1 normal heart sound present and S2 normal heart sound present Bruits: no carotid bruits Peripheral pulses: Peripheral pulses 2+ throughout GI Inspection: Yes normal to inspection Skin Other: Trans met amp is necrotic. Sutures and hussein were removed. Some of the blackened skin was removed. Of note the underlying tissue actually was fairly healthy with good bleeding. Wounds: no wounds Hair: normal Neuro General: oriented to person, oriented to place and oriented to time Cranial nerves: Yes CN's II-XII intact bilaterally and Yes Normal hearing present Cognition (Neuro): normal cognition Motor exam (neuro): 5/5 motor strength present throughout Extrem Other: venous exam: No significant superficial varicosities or spider telangiectasias, minimal edema General: No clubbing, No cyanosis and No edema Psych Appearance: grossly normal Mental Status: mental status grossly normal Speech and movement: Normal speech and movement present Assessment & Plan Assessment & Plan (1) PAD (peripheral artery disease): Comment: 08/31/2023 - right transmetatarsal amputation Code(s): I73.9 - Peripheral vascular disease, unspecified Plan: In short patient has a nonhealing trans met amp. We did remove some of the necrotic tissue in it does look like it has a reasonable chance of healing underneath. I did bring up the topic of a below-knee amputation and the patient was extremely resistant to this whole idea. We will continue with local wound care. She will follow up with us in approximately 3 weeks time. Son was at bedside. Thank you for allowing us to assist in her care. Coding Level of Care Code Est Pt Level 3 (45391) Diagnoses PAD (peripheral artery disease) I73.9
== END 2023-09-21 10:38 | disposition home or self-care (01) ==
LOC: HO.HVS 09:43
PROVIDERS: Visit Provider Surgery Vascular Surgery
DX: I73.9 Peripheral vascular disease, unspecified (principal)
CPT/HCPCS: 99024

== ENCOUNTER → 2023-09-21 09:43 | Outpatient (BNVA) | payer OTHER, MEDICARE, MEDICAID, SELFPAY | PROVIDERS: Visit Provider Surgery Vascular Surgery | DX: T87.53 Necrosis of amputation stump, right lower extremity (principal); Z89.431 Acquired absence of right foot | CPT/HCPCS: 97597; 99212 ==

== ENCOUNTER 2023-10-11 15:02 | Outpatient (AMB) | payer MEDICARE, MEDICAID, SELFPAY ==
[2023-10-11 15:51] VITALS: BP 164/70; PULSE 66; O2SAT 97; BMI 26.6
--- NOTE | 2023-10-11 15:51 | HO.NEPHOV_ITS ---
HPI HPI Comments History of Present Illness Details 72-year-old female with pertinent histor y of peripheral arterial disease status left BKA, essential hypertension, insulin-dependent diabetes mellitus who recently presented to the emergency department for evaluation of right foot toe discoloration, swelling and discharge. Her son has noticed discoloration of the right 2nd toe with intermittent purulent drainage associated redness and swelling with no fever or chills, chest discomfort, palpitations, shortness of breath, abdominal pain, changes in urinary or bowel habits.In the emergency department, patient was found to be septic and initiated on empiric IV antibiotics. Imaging with severe stenosis in the distal right superior femoral artery and occlusion of the distal right posterior tibial artery. She was thought to her sepsis due to right foot cellulitis, diabetic foot infection with wet gangrene of the 2nd toe that was deemed not curable with antibiotics and therefore underwent transmetarsal ampuation of the rith foot on 08/31/[address] Puentes after angiogram with /p right peroneal plasty,sfa plasty on 08/28/23. She had hyperkalemia which was treated with Lokelma after discontinuation of losartan with resolution of her high potassium levels. She had normocytic anemia likely due to chronic inflammation and had declined transfusion during recent hospitalization. She denies any chest pain, shortness of breath, paroxysmal nocturnal dyspnea, orthopnea, pedal edema or urinary symptoms. She does not take any nonsteroidal anti-inflammatories. She tries to maintain good hydration. He is concerned about her declining renal functions. [facility] Medical History (Updated 10/11/23 @ 16:07 by Oleg Bill MD) Essential hypertension Acute systolic CHF (congestive heart failure) PAD (peripheral artery disease) Hypertension Mood disorder Diabetes Surgical History History of left below knee amputation History of femoral angiogram History of left below knee amputation Pacemaker Social History Household Members: Family and Children Housing: House Unable to assess alcohol history related to: Unknown Alcohol intake: current Alcohol intake frequency: holidays/special occasions only Patient Tobacco Use Status: Never used Tobacco service: No Current occupational status: retired Vital Signs 10/11/23 15:51 Height 5 ft 5 in Weight 160 lb BMI 26.6 BP 164/70 H Blood Pressure Location Rt brachial Position Sitting Pulse 66 Pulse Source Pulse Oximeter Pulse Oximetry (%) 97 Oxygen Delivery Method Room Air Physical Exam Vital Signs: Last Vital Signs Pulse 66 10/11/23 15:51 BP 164/70 H 10/11/23 15:51 Pulse Ox 97 10/11/23 15:51 Oxygen Delivery Method Room Air 10/11/23 15:51 BMI result Body Mass Index 26.6 Const General: comfortable and no acute distress Orientation/consciousness: patient oriented x3 HEENT Head: Yes normocephalic Mouth: Normal oral and palatal mucosa present Eyes EOM: EOMs intact bilaterally Neck Neck: Yes supple Resp Auscultation: clear to auscultation bilaterally Cardio Jugular venous distension: no JVD Rate: regular rate GI Palpation (GI): Soft to palpation Auscultation: normal bowel sounds General: Yes no CVA tenderness Back/Spine/Pelvis Back: no CVA tenderness Skin General skin exam: no rashes or lesions noted Neuro General: patient oriented x3 and moves all extremities Assessment & Plan Assessment & Plan (1) CKD (chronic kidney disease) stage 3, GFR 30-59 ml/min: Code(s): N18.30 - Chronic kidney disease, stage 3 unspecified Qualifiers: Chronic kidney disease stage 3 subtype: stage 3b (GFR 30-44) Qualified Code(s): N18.32 - Chronic kidney disease, stage 3b (2) Essential hypertension: Code(s): I10 - Essential (primary) hypertension (3) Acute kidney injury: Code(s): N17.9 - Acute kidney failure, unspecified Plan Belkys had acute kidney injury on a backdrop of chronic kidney disease, due to sepsis as well as contrast from angiography. She also had heart failure which has resolved. Her vancomycin levels have been high during recent hospita lization and had been discontinued. Her CKD is likely from vascular disease. There is no reason to suspect [place] infectious glomerulonephritis or AIN. Her urine output is good and it is unlikely that she has obstructive uropathy. She is off angiotensin receptor jose angel. I will continue her her rest of her current medications for now . She will be a candidate for Procrit injections in the future. I did not make any medication changes today. If her GFR is appropriate, she will be a candidate for Jardiance or Farxiga in the future. She should avoid nonsteroidal anti-inflammatory medications and maintain good hydration. Follow-up blood work ordered answered her and her son's questions. Follow-up given. Orders: Orders Electrolytes Today I10 - Essential (primary) hypertension, N18.30 - Chronic kidney disease, stage 3 unspecified Vitamin D 25-OH Total Today I10 - Essential (primary) hypertension, N18.30 - Chronic kidney disease, stage 3 unspecified Phosphorus Today I10 - Essential (primary) hypertension, N18.30 - Chronic kidney disease, stage 3 unspecified Protein Creatinine Ratio, Ur Today I10 - Essential (primary) hypertension, N18.30 - Chronic kidney disease, stage 3 unspecified Creatinine Today I10 - Essential (primary) hypertension, N18.30 - Chronic kidney disease, stage 3 unspecified Blood Urea Nitrogen Today I10 - Essential (primary) hypertension, N18.30 - Chronic kidney disease, stage 3 unspecified Calcium Today I10 - Essential (primary) hypertension, N18.30 - Chronic kidney disease, stage 3 unspecified Parathyroid Hormone Intact Today I10 - Essential (primary) hypertension, N18.30 - Chronic kidney disease, stage 3 unspecified Complete Blood Count Auto Diff Today I10 - Essential (primary) hypertension, N18.30 - Chronic kidney disease, stage 3 unspecified IRON PROFILE Today I10 - Essential (primary) hypertension, N18.30 - Chronic kidney disease, stage 3 unspecified Coding Level of Care Code Est Pt Level 4 (50287) Diagnoses Stage 3b chronic kidney disease N18.32 Chronic kidney disease stage 3 subtype: stage 3b (GFR 30-44) Essential hypertension I10 Acute kidney injury N17.9 Results Reviewed Nephrology Results: Hgb 7.5 g/dl (12.0-16.0) L 09/05/23 WBC 10.8 X10*3/uL (4.8-10.8) 09/01/23 Plt Count 507 X10*3/uL (160-400) H 09/01/23 Sodium 132 mmol/L (135-145) L 09/05/23 Potassium 5.1 mmol/L (3.3-5.1) 09/05/23 Chloride 102 mmol/L (96-108) 09/05/23 Carbon Dioxide 24 mmol/L (22-29) 09/05/23 BUN 31 mg/dL (9-16) H 09/05/23 Creatinine 1.77 mg/dL (0.5-1.4) H 09/05/23 Calcium 9.0 mg/dL (8.4-10.2) 09/05/23
== END 2023-10-11 16:16 | disposition home or self-care (01) ==
PROVIDERS: Visit Provider Internal Medicine Nephrology
DX: N18.32 Chronic kidney disease, stage 3b (principal); I10 Essential (primary) hypertension; N17.9 Acute kidney failure, unspecified
CPT/HCPCS: 99214

== ENCOUNTER → 2023-10-11 15:02 | Outpatient (BNVA) | payer MEDICARE, MEDICAID, SELFPAY | PROVIDERS: Visit Provider Internal Medicine Nephrology | DX: I12.9 Hypertensive chronic kidney disease with stage 1 through stage 4 chronic kidney disease, or unspecified chronic kidney disease (principal); N18.32 Chronic kidney disease, stage 3b; N17.9 Acute kidney failure, unspecified | CPT/HCPCS: 99212 ==

== ENCOUNTER 2023-10-17 09:35 | Outpatient (AMB) | payer MEDICARE, MEDICAID, SELFPAY ==
--- NOTE | 2023-10-17 10:03 | MHC.OFFVIS ---
Intake Vital Signs 10/17/23 10:04 Height 5 ft 5 in Weight 160 lb BMI 26.6 Intake Visit Reasons: 3 week follow amp Intake Note: Patient here for right transmet amp follow up. Transmet done on 08/31/23. Bandage last changed on 10/16/23. Patient states no pain. Noticeable drainage. Wound is black with dry eschar [employer] Name: [id number] Information Interpreted: non-clinical & clinical Accompanied by: Self / Same As Patient Allergies penicillin V Allergy (Unknown, Verified 10/17/23 10:14) RSH,ITCHY HPI 3 week follow amp HPI Details Very pleasant 72-year-old female presents for follow-up status post right transmetatarsal amputation. It has been a poorly healing flap. The flap is actually frankly necrotic. It has been stable and she has been doing relatively well with that. She is currently in a facility. She now presents for routine follow-up [facility] Medical History Essential hypertension Acute systolic CHF (congestive heart failure) PAD (peripheral artery disease) Hypertension Mood disorder Diabetes Surgical History (Updated 10/17/23 @ 10:15 by VIET Lema) History of transmetatarsal amputation of right foot (08/31/23) History of left below knee amputation History of femoral angiogram History of left below knee amputation Pacemaker Social History Household Members: Family and Children Housing: House Unable to assess alcohol history related to: Unknown Alcohol intake: current Alcohol intake frequency: holidays/special occasions only Patient Tobacco Use Status: Never used Tobacco service: No Current occupational status: retired Review of Systems Const All systems reviewed & are unremarkable except as noted in HPI and below Reports no additional complaints ENT Reports Normal hearing present Card Denies chest pain, Denies chest pain at rest, Denies chest pain with activity and Denies pedal edema Resp Denies cough GI Denies abdominal pain Musc Denies abnormal gait, Denies muscle cramps and Denies radiating pain into limb Skin/Breast Denies skin ulcer and Denies wounds Neuro Reports Normal hearing present and Denies abnormal gait Psych Reports no additional complaints Physical Exam Vital Signs: BMI result Body Mass Index 26.6 Const General: cooperative, healthy appearing and comfortable Orientation/consciousness: oriented to person, oriented to place and oriented to time HEENT Head: Yes normal to inspection Neck Neck: Yes normal visual inspection Carotids: no bruits Chest Chest palpation & inspection: normal inspection of the chest Resp Effort & Inspection: normal respiratory effort and able to speak in complete sentences Auscultation: clear to auscultation bilaterally, no crackles, no rales, no rhonchi and no wheezes Cardio Rate: regular rate Rhythm: regular rhythm Heart sounds: S1 normal heart sound present and S2 normal heart sound present Bruits: no carotid bruits Peripheral pulses: Peripheral pulses 2+ throughout GI Inspection: Yes normal to inspection Skin Other: Right trans met amp- necrotic flap Wounds: no wounds Hair: normal Neuro General: oriented to person, oriented to place and oriented to time Cranial nerves: Yes CN's II-XII intact bilaterally and Yes Normal hearing present Cognition (Neuro): normal cognition Motor exam (neuro): 5/5 motor strength present throughout Extrem Other: venous exam: No significant superficial varicosities or spider telangiectasias, minimal edema General: No clubbing, No cyanosis and No edema Psych Appearance: grossly normal Mental Status: mental status grossly normal Speech and movement: Normal speech and movement present Assessment & Plan Assessment & Plan (1) PAD (peripheral artery disease): Comment: 08/31/2023 - right transmetatarsal amputation Code(s): I73.9 - Peripheral vascular disease, unspecified Plan: In short patient has a nonhealing trans met amp. We did remove some necrotic tissue in it does have reasonable tissue underneath. We will continue conservative cares as she does not wish to have any further amputations. She will follow up with us in approximately 3 weeks time. At the current time would continue with Adaptic dressings. Thank you for allowing us to assist in her care. If there are any questions or concerns please do not hesitate to contact us Coding Level of Care Code Est Pt Level 3 (68978) Diagnoses PAD (peripheral artery disease) I73.9
[2023-10-17 10:04] VITALS: BMI 26.6
== END 2023-10-17 10:43 | disposition home or self-care (01) ==
LOC: HO.HVS 09:36
PROVIDERS: Visit Provider Surgery Vascular Surgery
DX: I73.9 Peripheral vascular disease, unspecified (principal)
CPT/HCPCS: 99024

== ENCOUNTER → 2023-10-17 09:35 | Outpatient (BNVA) | payer MEDICARE, MEDICAID, SELFPAY | PROVIDERS: Visit Provider Surgery Vascular Surgery | DX: I73.9 Peripheral vascular disease, unspecified (principal) | CPT/HCPCS: 99212 ==

== ENCOUNTER 2023-11-07 13:04 | Outpatient (AMB) | payer MEDICARE, MEDICAID, SELFPAY ==
--- NOTE | 2023-11-07 13:14 | MHC.OFFVIS ---
Intake Vital Signs 11/07/23 13:15 Height 5 ft 5 in Weight 160 lb BMI 26.6 Intake Visit Reasons: 3 week f/u amp Intake Note: 3 week follow up Right transmet amp ( 08/31/2023) check. Pt states that they are to change dressing daily but sometimes change QOD. They are putting adaptic on dry eschar area and it seems very dry. Accompanied by: Son Allergies penicillin V Allergy (Unknown, Verified 11/07/23 13:58) RSH,ITCHY HPI 3 week f/u amp HPI Details Very emotional 72-year-old female presents for follow-up regarding right trans met amp which has been nonhealing. It has been dry and desiccated. We have been trying to conservatively manage this. She has had no significant improvement. She now presents for routine follow-up. [facility] Medical History Essential hypertension Acute systolic CHF (congestive heart failure) PAD (peripheral artery disease) Hypertension Mood disorder Diabetes Surgical History History of transmetatarsal amputation of right foot (08/31/23) History of left below knee amputation History of femoral angiogram History of left below knee amputation Pacemaker Social History Household Members: Family and Children Housing: House Unable to assess alcohol history related to: Unknown Alcohol intake: current Alcohol intake frequency: holidays/special occasions only Patient Tobacco Use Status: Never used Tobacco service: No Current occupational status: retired Review of Systems Const All systems reviewed & are unremarkable except as noted in HPI and below Reports no additional complaints ENT Reports Normal hearing present Card Denies chest pain, Denies chest pain at rest, Denies chest pain with activity and Denies pedal edema Resp Denies cough GI Denies abdominal pain Musc Denies abnormal gait, Denies muscle cramps and Denies radiating pain into limb Skin/Breast Denies skin ulcer and Denies wounds Neuro Reports Normal hearing present and Denies abnormal gait Psych Reports no additional complaints Physical Exam Vital Signs: BMI result Body Mass Index 26.6 Const General: cooperative, healthy appearing and comfortable Orientation/consciousness: oriented to person, oriented to place and oriented to time HEENT Head: Yes normal to inspection Neck Neck: Yes normal visual inspection Carotids: no bruits Chest Chest palpation & inspection: normal inspection of the chest Resp Effort & Inspection: normal respiratory effort and able to speak in complete sentences Auscultation: clear to auscultation bilaterally, no crackles, no rales, no rhonchi and no wheezes Cardio Rate: regular rate Rhythm: regular rhythm Heart sounds: S1 normal heart sound present and S2 normal heart sound present Bruits: no carotid bruits Peripheral pulses: Peripheral pulses 2+ throughout GI Inspection: Yes normal to inspection Skin Other: Right trans met poorly healing dry desiccated. No improvement over the past several weeks. Wounds: amputation site Hair: normal Neuro General: oriented to person, oriented to place and oriented to time Cranial nerves: Yes CN's II-XII intact bilaterally and Yes Normal hearing present Cognition (Neuro): normal cognition Motor exam (neuro): 5/5 motor strength present throughout Extrem Other: venous exam: No significant superficial varicosities or spider telangiectasias, minimal edema General: No clubbing, No cyanosis and No edema Psych Appearance: grossly normal Mental Status: mental status grossly normal Speech and movement: Normal speech and movement present Assessment & Plan Assessment & Plan (1) PAD (peripheral artery disease): Comment: 08/31/2023 - right transmetatarsal amputation Code(s): I73.9 - Peripheral vascular disease, unspecified Plan: In short patient has a nonhealing trans met amp flap. This is not going to heal. We have had an extensive attempts at conservative measures. When I discussed the option of a below-knee amputation she became quite emotional and refused. Sudden was at bedside as well and explained this to her. I did want her to have some time to process this. We did discuss changing the dressing to Silvadene. I would like to see how it does over the next 2 weeks. If there is no improvement I will re-approached the issue of amputation once again. Thank you for allowing us to assist in her care. If there are any questions or concerns please do not hesitate to contact us. Coding Level of Care Code Est Pt Level 3 (44850) Diagnoses PAD (peripheral artery disease) I73.9
[2023-11-07 13:15] VITALS: BMI 26.6
== END 2023-11-07 14:48 | disposition home or self-care (01) ==
PROVIDERS: Visit Provider Surgery Vascular Surgery
DX: I73.9 Peripheral vascular disease, unspecified (principal)
CPT/HCPCS: 99024

== ENCOUNTER → 2023-11-07 13:04 | Outpatient (BNVA) | payer MEDICARE, MEDICAID, SELFPAY | PROVIDERS: Visit Provider Surgery Vascular Surgery | DX: I73.9 Peripheral vascular disease, unspecified (principal); Z89.431 Acquired absence of right foot | CPT/HCPCS: 99212 ==

== ENCOUNTER 2023-11-15 11:22 | Outpatient (AMB) | payer MEDICARE, MEDICAID, SELFPAY ==
--- NOTE | 2023-11-15 11:28 | HO.NEPHOV_ITS ---
HPI HPI Comments History of Present Illness Details 72-year-old female with pertinent histor y of peripheral arterial disease status left BKA, essential hypertension, insulin-dependent diabetes mellitus who recently presented to the emergency department for evaluation of right foot toe discoloration, swelling and discharge. Her son has noticed discoloration of the right 2nd toe with intermittent purulent drainage associated redness and swelling with no fever or chills, chest discomfort, palpitations, shortness of breath, abdominal pain, changes in urinary or bowel habits.In the emergency department, patient was found to be septic and initiated on empiric IV antibiotics. Imaging with severe stenosis in the distal right superior femoral artery and occlusion of the distal right posterior tibial artery. She was thought to her sepsis due to right foot cellulitis, diabetic foot infection with wet gangrene of the 2nd toe that was deemed not curable with antibiotics and therefore underwent transmetarsal ampuation of the rith foot on 08/31/[address] Puentes after angiogram with /p right peroneal plasty,sfa plasty on 08/28/23. She had hyperkalemia which was treated with Lokelma after discontinuation of losartan with resolution of her high potassium levels. She had normocytic anemia likely due to chronic inflammation and had declined transfusion during recent hospitalization. She denies any chest pain, shortness of breath, paroxysmal nocturnal dyspnea, orthopnea, pedal edema or urinary symptoms. She does not take any nonsteroidal anti-inflammatories. She tries to maintain good hydration. She is concerned about her non healing R LE wound. [facility] Medical History Essential hypertension Acute systolic CHF (congestive heart failure) PAD (peripheral artery disease) Hypertension Mood disorder Diabetes Surgical History History of transmetatarsal amputation of right foot (08/31/23) History of left below knee amputation History of femoral angiogram History of left below knee amputation Pacemaker Social History Household Members: Family and Children Housing: House Unable to assess alcohol history related to: Unknown Alcohol intake: current Alcohol intake frequency: holidays/special occasions only Patient Tobacco Use Status: Never used Tobacco service: No Current occupational status: retired Vital Signs 11/15/23 11:30 Height 5 ft 5 in Weight 160 lb BMI 26.6 BP 146/90 H Blood Pressure Location Rt brachial Position Sitting Pulse 68 Pulse Source Pulse Oximeter Pulse Oximetry (%) 97 Oxygen Delivery Method Room Air Physical Exam Vital Signs: Last Vital Signs Pulse 68 11/15/23 11:30 BP 146/90 H 11/15/23 11:30 Pulse Ox 97 11/15/23 11:30 Oxygen Delivery Method Room Air 11/15/23 11:30 BMI result Body Mass Index 26.6 Const General: comfortable and no acute distress Orientation/consciousness: patient oriented x3 HEENT Head: Yes normocephalic Mouth: Normal oral and palatal mucosa present Eyes EOM: EOMs intact bilaterally Neck Neck: Yes supple Resp Auscultation: clear to auscultation bilaterally Cardio Jugular venous distension: no JVD Rate: regular rate GI Palpation (GI): Soft to palpation Auscultation: normal bowel sounds General: Yes no CVA tenderness Back/Spine/Pelvis Back: no CVA tenderness Skin General skin exam: no rashes or lesions noted Neuro General: patient oriented x3 and moves all extremities Assessment & Plan Assessment & Plan (1) CKD (chronic kidney disease) stage 3, GFR 30-59 ml/min: Code(s): N18.30 - Chronic kidney disease, stage 3 unspecified Qualifiers: Chronic kidney disease stage 3 subtype: stage 3b (GFR 30-44) Qualified Code(s): N18.32 - Chronic kidney disease, stage 3b (2) Essential hypertension: Code(s): I10 - Essential (primary) hypertension (3) History of left below knee amputation: Code(s): Z89.512 - Acquired absence of left leg below knee Plan Belkys recently had acute kidney injury on a backdrop of chronic kidney disease, due to sepsis as well as contrast from angiography. She also had heart failure which has resolved. Her vancomycin levels have been high during recent hospitalization and had been discontinued. Her CKD is likely from vascular disease. There is no reason to suspect [place] infectious glomerulonephritis or AIN. Her urine output is good and it is unlikely that she has obstructive uropathy. She is off angiotensin receptor jose angel. I will continue her her rest of her current medications for now . She will be a candidate for Procrit injections in the future. I did not make any medication changes today. If her GFR is appropriate, she will be a candidate for Jardiance or Farxiga in the future. She should avoid nonsteroidal anti-inflammatory medications and maintain good hydration. Follow-up blood work ordered , answered her and her son's questions. Follow-up given Orders: Orders Complete Blood Count Auto Diff Today I10 - Essential (primary) hypertension, N18.30 - Chronic kidney disease, stage 3 unspecified Electrolytes Today I10 - Essential (primary) hypertension, N18.30 - Chronic kidney disease, stage 3 unspecified Parathyroid Hormone Intact Today I10 - Essential (primary) hypertension, N18.30 - Chronic kidney disease, stage 3 unspecified Creatinine Today I10 - Essential (primary) hypertension, N18.30 - Chronic kidney disease, stage 3 unspecified Blood Urea Nitrogen Today I10 - Essential (primary) hypertension, N18.30 - Chronic kidney disease, stage 3 unspecified IRON PROFILE Today I10 - Essential (primary) hypertension, N18.30 - Chronic kidney disease, stage 3 unspecified Vitamin D 25-OH Total Today I10 - Essential (primary) hypertension, N18.30 - Chronic kidney disease, stage 3 unspecified Coding Level of Care Code Est Pt Level 4 (68200) Diagnoses Stage 3b chronic kidney disease N18.32 Chronic kidney disease stage 3 subtype: stage 3b (GFR 30-44) Essential hypertension I10 History of left below knee amputation Z89.512 Results Reviewed Nephrology Results: No Data to Display
[2023-11-15 11:30] VITALS: BP 146/90; PULSE 68; O2SAT 97; BMI 26.6
== END 2023-11-15 11:56 | disposition home or self-care (01) ==
LOC: HO.HKA 11:22
PROVIDERS: Visit Provider Internal Medicine Nephrology
DX: N18.32 Chronic kidney disease, stage 3b (principal); I10 Essential (primary) hypertension; Z89.512 Acquired absence of left leg below knee
CPT/HCPCS: 99214

== ENCOUNTER 2023-11-15 11:22 | Outpatient (REF) | payer MEDICARE, MEDICAID, SELFPAY ==
[2023-11-15 12:30] LABS: MANUAL DIFF FLAG NO
[2023-11-15 12:58] LABS: Basophils Percent Auto 0.6 % (0-2); Eosinophils Absolute Auto 0.1 X10*3/uL (0.0-0.4); Eosinophils Percent Auto 1.5 % (0-4); Hematocrit 35.8 % (37.0-47.0); Hemoglobin 11.3 g/dl (12.0-16.0); Imm Gran Abs Auto 0.01 X10*3/uL (0.00-0.03); Imm Gran Pct Auto 0.2 % (0.0-0.4); Lymphocytes Absolute Auto 1.4 X10*3/uL (1.2-4.9); Lymphocytes Percent Auto 28.6 % (20-40); Mean Corpuscular HGB Conc 31.6 g/dl (31.0-35.0); Mean Corpuscular Hemoglobin 25.5 pg (27.0-33.0); Mean Corpuscular Volume 80.6 fL (80.0-98.0); Mean Platelet Volume 9.9 fL (9.4-12.3); Monocytes Absolute Auto 0.7 X10*3/uL (0.1-1.2); Monocytes Percent Auto 13.7 % (2-11); Neutrophils Absolute Auto 2.6 x10*3/uL (2.0-8.3); Neutrophils Percent Auto 55.4 % (45-73); Platelet Count 246 X10*3/uL (160-400); Red Blood Count 4.44 X10*6/uL (4.20-5.50); Red Cell Distribution Width 17.2 % (11.0-16.0); White Blood Count 4.8 X10*3/uL (4.8-10.8)
[2023-11-15 13:32] LABS: Parathyroid Hormone Intact 58.2 pg/mL (8.7-77.1)
[2023-11-15 13:33] LABS: Anion Gap 11 (12-20); Blood Urea Nitrogen 31 mg/dL (9-16); Calcium 9.6 mg/dL (8.4-10.2); Carbon Dioxide 27 mmol/L (22-29); Chloride 105 mmol/L (96-108); Estimated Glomerular Filt Rate 25; Iron 70 mcg/dL (30-160); Percent Iron Saturation 22 % (15-50); Phosphorus 4.5 mg/dL (2.7-4.5); Sodium 138 mmol/L (135-145); Total Iron Binding Capacity 314 mcg/dL (228-428); Unsaturated Iron Binding 244 ug/dL
[2023-11-15 13:51] LABS: Vitamin D 25-OH Total 34.9 ng/mL (>30)
== END 2023-11-15 11:23 | disposition home or self-care (01) ==
LOC: HO.LAB 11:22
PROVIDERS: Visit Provider Internal Medicine Nephrology
DX: I12.9 Hypertensive chronic kidney disease with stage 1 through stage 4 chronic kidney disease, or unspecified chronic kidney disease (principal); E11.22 Type 2 diabetes mellitus with diabetic chronic kidney disease; E11.51 Type 2 diabetes mellitus with diabetic peripheral angiopathy without gangrene; N18.32 Chronic kidney disease, stage 3b; Z89.512 Acquired absence of left leg below knee; Z79.4 Long term (current) use of insulin
CPT/HCPCS: 36415; 80051; 82306; 82310; 82565; 83540; 83970; 84100; 84520; 85025; 99212

== ENCOUNTER 2023-11-23 13:15 | Outpatient (AMB) | payer MEDICARE, MEDICAID, SELFPAY ==
--- NOTE | 2023-11-23 13:29 | A.OFFVIS_ITS ---
Intake Vital Signs 11/23/23 13:51 Height 5 ft 5 in Weight 160 lb BMI 26.6 Intake Visit Reasons: 2 week wound check up Intake Note: 2 week follow up wound check s/p Right Transmet amp 08/31/23. Pt states dressing changes daily. Has switched over to silvadene cream as prescribed at last visit Bacteriology Research Assistant Required: Yes Accompanied by: Son Allergies penicillin V Allergy (Unknown, Verified 11/23/23 13:55) RSH,ITCHY HPI 2 week wound check up HPI Details Very pleasant 72-year-old female presents for follow-up regarding right trans met amp. There has been no significant change. It has been dry desiccated nonhealing. We have been conservatively managing this per patient request. Son is at bedside for follow-up [facility] Medical History Essential hypertension Acute systolic CHF (congestive heart failure) PAD (peripheral artery disease) Hypertension Mood disorder Diabetes Surgical History History of transmetatarsal amputation of right foot (08/31/23) History of left below knee amputation History of femoral angiogram History of left below knee amputation Pacemaker Social History Household Members: Family and Children Housing: House Unable to assess alcohol history related to: Unknown Alcohol intake: current Alcohol intake frequency: holidays/special occasions only Patient Tobacco Use Status: Never used Tobacco service: No Current occupational status: retired Review of Systems Const All systems reviewed & are unremarkable except as noted in HPI and below Reports no additional complaints ENT Reports Normal hearing present Card Denies chest pain, Denies chest pain at rest, Denies chest pain with activity and Denies pedal edema Resp Denies cough GI Denies abdominal pain Musc Denies abnormal gait, Denies muscle cramps and Denies radiating pain into limb Skin/Breast Denies skin ulcer and Denies wounds Neuro Reports Normal hearing present and Denies abnormal gait Psych Reports no additional complaints Physical Exam Vital Signs: BMI result Body Mass Index 26.6 Const General: cooperative, healthy appearing and comfortable Orientation/consciousness: oriented to person, oriented to place and oriented to time HEENT Head: Yes normal to inspection Neck Neck: Yes normal visual inspection Carotids: no bruits Chest Chest palpation & inspection: normal inspection of the chest Resp Effort & Inspection: normal respiratory effort and able to speak in complete s entences Auscultation: clear to auscultation bilaterally, no crackles, no rales, no rhonchi and no wheezes Cardio Rate: regular rate Rhythm: regular rhythm Heart sounds: S1 normal heart sound present and S2 normal heart sound present Bruits: no carotid bruits Peripheral pulses: Peripheral pulses 2+ throughout GI Inspection: Yes normal to inspection Skin Other: Trans met amp dry desiccated no underlying tissue poor granulation. Wounds: no wounds Hair: normal Neuro General: oriented to person, oriented to place and oriented to time Cranial nerves: Yes CN's II-XII intact bilaterally and Yes Normal hearing present Cognition (Neuro): normal cognition Motor exam (neuro): 5/5 motor strength present throughout Extrem Other: venous exam: No significant superficial varicosities or spider telangiectasias, minimal edema General: No clubbing, No cyanosis and No edema Psych Appearance: grossly normal Mental Status: mental status grossly normal Speech and movement: Normal speech and movement present Assessment & Plan Assessment & Plan (1) PAD (peripheral artery disease): Comment: 08/31/2023 - right transmetatarsal amputation Code(s): I73.9 - Peripheral vascular disease, unspecified Plan: In short patient has a nonhealing trans met amp. We have been conservatively managing this. I have repeatedly address this situation with the son and the patient that she may be better served with a BKA. They continue to refuse. Will manage this as conservatively as possible. I did warn the patient that she is at extremely high risk of infection and further complications should we not address this. They did demonstrated an understanding for this. We will follow up with her in approximately 3 weeks time. Coding Level of Care Code Est Pt Level 3 (96903) Diagnoses PAD (peripheral artery disease) I73.9
[2023-11-23 13:51] VITALS: BMI 26.6
== END 2023-11-23 14:22 | disposition home or self-care (01) ==
PROVIDERS: Visit Provider Surgery Vascular Surgery
DX: I73.9 Peripheral vascular disease, unspecified (principal); T87.89 Other complications of amputation stump; Z89.431 Acquired absence of right foot
CPT/HCPCS: 99024

== ENCOUNTER → 2023-11-23 13:15 | Outpatient (BNVA) | payer MEDICARE, MEDICAID, SELFPAY | PROVIDERS: Visit Provider Surgery Vascular Surgery | DX: I73.9 Peripheral vascular disease, unspecified (principal) | CPT/HCPCS: 99212 ==

== ENCOUNTER 2023-12-21 12:55 | Outpatient (AMB) | payer MEDICARE, MEDICAID, SELFPAY ==
--- NOTE | 2023-12-21 13:04 | MHC.OFFVIS ---
Intake Visit Reasons: 3 week wound check Intake Note: Patient presents for 3 week wound check. Patient believes the cream that is being put on is wrong. Patient's dressing was changed yesterday, asked if it is changed daily to which patient responded sometimes yes, sometimes no Upon removing bandages I did notice some drainage. Gaming Commissioner Required: No Accompanied by: Son Allergies penicillin V Allergy (Unknown, Verified 12/21/23 13:05) RSH,ITCHY HPI HPI 3 week wound check: Details: Complex 73-year-old female presents for follow-up regarding right trans met amp. It has been poorly healing all long. We continued to debride it and developed a dry eschar. She has got a very poor granulation base. She is in a facility. She is doing extremely poorly. In addition it appears that her dementia is progressing as she was confused as to her current location and why she was here. [facility] Medical History Essential hypertension Acute systolic CHF (congestive heart failure) PAD (peripheral artery disease) Hypertension Mood disorder Diabetes Surgical History History of transmetatarsal amputation of right foot (08/31/23) History of left below knee amputation History of femoral angiogram History of left below knee amputation Pacemaker Social History Household Members: Family and Children Housing: House Unable to assess alcohol history related to: Unknown Alcohol intake: current Alcohol intake frequency: holidays/special occasions only Patient Tobacco Use Status: Never used Tobacco service: No Current occupational status: retired Review of Systems Const All systems reviewed & are unremarkable except as noted in HPI and below Reports no additional complaints ENT Reports Normal hearing present Card Denies chest pain, Denies chest pain at rest, Denies chest pain with activity and Denies pedal edema Resp Denies cough GI Denies abdominal pain Musc Denies abnormal gait, Denies muscle cramps and Denies radiating pain into limb Skin/Breast Denies skin ulcer and Denies wounds Neuro Reports Normal hearing present and Denies abnormal gait Psych Reports no additional complaints Physical Exam Const General: cooperative, healthy appearing and comfortable Orientation/consciousness: oriented to person, oriented to place and oriented to time HEENT Head: Yes normal to inspection Neck Neck: Yes normal visual inspection Carotids: no bruits Chest Chest palpation & inspection: normal inspection of the chest Resp Effort & Inspection: normal respiratory effort and able to speak in complete sentences Auscultation: clear to auscultation bilaterally, no crackles, no rales, no rhonchi and no wheezes Cardio Rate: regular rate Rhythm: regular rhythm Heart sounds: S1 normal heart sound present and S2 normal heart sound present Bruits: no carotid bruits Peripheral pulses: Peripheral pulses 2+ throughout GI Inspection: Yes normal to inspection Skin Other: Right trans met dry eschar on flap Wounds: no wounds Hair: normal Neuro General: oriented to person, oriented to place and oriented to time Cranial nerves: Yes CN's II-XII intact bilaterally and Yes Normal hearing present Cognition (Neuro): normal cognition Motor exam (neuro): 5/5 motor strength present throughout Extrem Other: venous exam: No significant superficial varicosities or spider telangiectasias, minimal edema General: No clubbing, No cyanosis and No edema Psych Appearance: grossly normal Mental Status: mental status grossly normal Speech and movement: Normal speech and movement present Assessment & Plan Assessment & Plan (1) PAD (peripheral artery disease): Comment: 08/31/2023 - right transmetatarsal amputation Code(s): I73.9 - Peripheral vascular disease, unspecified Category: Medical Plan: In short her right trans met continues to do poorly. We did debride it. There is concern of underlying infection. She does have some bleeding. Will continue with local wound care with Silvadene dressings. Stable from my perspective to go home as son will be able to take care of the dressings. In addition I do believe her dementia has been progressing as her confusion seems to be getting worse. My formal recommendation would be BKA but the patient has politely refused he at again. We will continue to see her and she will see us in approximately 3 weeks time. Thank you for allowing us to assist in her care. If there are any questions or concerns please do not hesitate to contact us. Coding Level of Care Code Est Pt Level 3 (90413) Diagnoses PAD (peripheral artery disease) I73.9
== END 2023-12-21 13:35 | disposition home or self-care (01) ==
PROVIDERS: Visit Provider Surgery Vascular Surgery
DX: I73.9 Peripheral vascular disease, unspecified (principal)
CPT/HCPCS: 99213

== ENCOUNTER → 2023-12-21 12:55 | Outpatient (BNVA) | payer MEDICARE, MEDICAID, SELFPAY | PROVIDERS: Visit Provider Surgery Vascular Surgery | DX: I73.9 Peripheral vascular disease, unspecified (principal) | CPT/HCPCS: 99212 ==

== ENCOUNTER 2024-01-11 12:55 | Outpatient (AMB) | payer MEDICARE, MEDICAID, SELFPAY ==
--- NOTE | 2024-01-11 13:16 | A.OFFVIS_ITS ---
Intake Visit Reasons: 3w wound check Intake Note: Patient presents today with her son for a 3 week follow up. Patient is getting bandages changed at rehab. Bandage has a date of 01/09 . Before unwrapping I noticed drainage on the front. Accompanied by: Son Allergies penicillin V Allergy (Unknown, Verified 01/11/24 13:18) RSH,ITCHY HPI HPI 3w wound check: Details: Patient seen and examined. No significant events since last visit. Still currently in a facility. Now for routine follow-up. [facility] Medical History Essential hypertension Acute systolic CHF (congestive heart failure) PAD (peripheral artery disease) Hypertension Mood disorder Diabetes Surgical History History of transmetatarsal amputation of right foot (08/31/23) History of left below knee amputation History of femoral angiogram History of left below knee amputation Pacemaker Social History Household Members: Family and Children Housing: House Unable to assess alcohol history related to: Unknown Alcohol intake: current Alcohol intake frequency: holidays/special occasions only Patient Tobacco Use Status: Never used Tobacco service: No Current occupational status: retired Review of Systems Const All systems reviewed & are unremarkable except as noted in HPI and below Reports no additional complaints ENT Reports Normal hearing present Card Denies chest pain, Denies chest pain at rest, Denies chest pain with activity and Denies pedal edema Resp Denies cough GI Denies abdominal pain Musc Denies abnormal gait, Denies muscle cramps and Denies radiating pain into limb Skin/Breast Denies skin ulcer and Denies wounds Neuro Reports Normal hearing present and Denies abnormal gait Psych Reports no additional complaints Physical Exam Const General: cooperative, healthy appearing and comfortable Orientation/consciousness: oriented to person, oriented to place and oriented to time HEENT Head: Yes normal to inspection Neck Neck: Yes normal visual inspection Carotids: no bruits Chest Chest palpation & inspection: normal inspection of the chest Resp Effort & Inspection: normal respiratory effort and able to speak in complete sentences Auscultation: clear to auscultation bilaterally, no crackles, no rales, no rhonchi and no wheezes Cardio Rate: regular rate Rhythm: regular rhythm Heart sounds: S1 normal heart sound present and S2 normal heart sound present Bruits: no carotid bruits Peripheral pulses: Peripheral pulses 2+ throughout GI Inspection: Yes normal to inspection Skin Other: Trans met amp flap nonhealing portion measures 8.5 x 6 x 0.2 cm opening. Poor granulation bed. Wounds: no wounds Hair: normal Neuro General: oriented to person, oriented to place and oriented to time Cranial nerves: Yes CN's II-XII intact bilaterally and Yes Normal hearing present Cognition (Neuro): normal cognition Motor exam (neuro): 5/5 motor strength present throughout Extrem Other: venous exam: No significant superficial varicosities or spider telangiectasias, minimal edema General: No clubbing, No cyanosis and No edema Psych Appearance: grossly normal Mental Status: mental status grossly normal Speech and movement: Normal speech and movement present Assessment & Plan Assessment & Plan (1) PAD (peripheral artery disease): Comment: 08/31/2023 - right transmetatarsal amputation Code(s): I73.9 - Peripheral vascular disease, unspecified Category: Medical Plan: In short patient has nonhealing trans met amp. We have had several discussions with her regarding a BKA. She continues to refuse. Will continue with local wound care. I do not suspect this will heal as it has extremely poor granulation bed. She will follow up with us in approximately 3 weeks time. Thank you for allowing us to assist in her care Coding Level of Care Code Est Pt Level 3 (44496) Diagnoses PAD (peripheral artery disease) I73.9
== END 2024-01-11 13:45 | disposition home or self-care (01) ==
PROVIDERS: Visit Provider Surgery Vascular Surgery
DX: I73.9 Peripheral vascular disease, unspecified (principal)
CPT/HCPCS: 99213

== ENCOUNTER → 2024-01-11 12:55 | Outpatient (BNVA) | payer MEDICARE, MEDICAID, SELFPAY | PROVIDERS: Visit Provider Surgery Vascular Surgery | DX: I73.9 Peripheral vascular disease, unspecified (principal) | CPT/HCPCS: 99212 ==

== ENCOUNTER 2024-02-15 13:13 | Outpatient (AMB) | payer MEDICARE, MEDICAID, SELFPAY ==
--- NOTE | 2024-02-15 13:19 | A.OFFVIS_ITS ---
Vital Signs 02/15/24 13:20 Height 5 ft 5 in Weight 160 lb BMI 26.6 Intake Visit Reasons: 3w wound check Intake Note: 3 week follow up Right Transmet amp, non-healing since 08/31/23, Pt is now at home and doing dressing changes QD. Accompanied by: Son Allergies penicillin V Allergy (Unknown, Verified 02/15/24 13:28) RSH,ITCHY HPI HPI 3w wound check: Details: Very pleasant 73-year-old Cre[place] female presents for follow-up regarding right transmetatarsal amputation. This was actually done on 08/31/2023. We are approaching nearly 6 months of this. She has a poorly healing flap. She actually is now out of a facility back at home. The son who is very involved in her care is at bedside. She now presents for follow-up evaluation. [facility] Medical History Essential hypertension Acute systolic CHF (congestive heart failure) PAD (peripheral artery disease) Hypertension Mood disorder Diabetes Surgical History History of transmetatarsal amputation of right foot (08/31/23) History of left below knee amputation History of femoral angiogram History of left below knee amputation Pacemaker Social History Household Members: Family and Children Housing: House Unable to assess alcohol history related to: Unknown Alcohol intake: current Alcohol intake frequency: holidays/special occasions only Patient Tobacco Use Status: Never used Tobacco service: No Current occupational status: retired Review of Systems Const All systems reviewed & are unremarkable except as noted in HPI and below Reports no additional complaints ENT Reports Normal hearing present Card Denies chest pain, Denies chest pain at rest, Denies chest pain with activity and Denies pedal edema Resp Denies cough GI Denies abdominal pain Musc Denies abnormal gait, Denies muscle cramps and Denies radiating pain into limb Skin/Breast Denies skin ulcer and Denies wounds Neuro Reports Normal hearing present and Denies abnormal gait Psych Reports no additional complaints Physical Exam Vital Signs: BMI result Body Mass Index 26.6 Const General: cooperative, healthy appearing and comfortable Orientation/consciousness: oriented to person, oriented to place and oriented to time HEENT Head: Yes normal to inspection Neck Neck: Yes normal visual inspection Carotids: no bruits Chest Chest palpation & inspection: normal inspection of the chest Resp Effort & Inspection: normal respiratory effort and able to speak in complete sentences Auscultation: clear to auscultation bilaterally, no crackles, no rales, no rhonchi and no wheezes Cardio Rate: regular rate Rhythm: regular rhythm Heart sounds: S1 normal heart sound present and S2 normal heart sound present Bruits: no carotid bruits Peripheral pulses: Peripheral pulses 2+ throughout GI Inspection: Yes normal to inspection Skin Other: Right trans met flap appears to be clean. Fibrinous necrotic material was cleaned off. Overall size measures 9.5 x 5.5 x 0.1 cm. Wounds: no wounds Hair: normal Neuro General: oriented to person, oriented to place and oriented to time Cranial nerves: Yes CN's II-XII intact bilaterally and Yes Normal hearing present Cognition (Neuro): normal cognition Motor exam (neuro): 5/5 motor strength present throughout Extrem Other: venous exam: No significant superficial varicosities or spider telangiectasias, minimal edema General: No clubbing, No cyanosis and No edema Psych Appearance: grossly normal Mental Status: mental status grossly normal Speech and movement: Normal speech and movement present Assessment & Plan Assessment & Plan (1) PAD (peripheral artery disease): Comment: 08/31/2023 - right transmetatarsal amputation Code(s): I73.9 - Peripheral vascular disease, unspecified Category: Medical Plan: In short her right transmetatarsal amputation appears to be stable. It has been extremely slow go in trying to heal this and she is refused further amputation. At the current time would continue with local wound care. She will see us back in approximately 1 months time. Thank you for allowing us to assist in her care. Coding Level of Care Code Est Pt Level 3 (83834) Diagnoses PAD (peripheral artery disease) I73.9
[2024-02-15 13:20] VITALS: BMI 26.6
== END 2024-02-15 13:53 | disposition home or self-care (01) ==
PROVIDERS: Visit Provider Surgery Vascular Surgery
DX: I73.9 Peripheral vascular disease, unspecified (principal)
CPT/HCPCS: 99213

== ENCOUNTER → 2024-02-15 13:13 | Outpatient (BNVA) | payer MEDICARE, MEDICAID, SELFPAY | PROVIDERS: Visit Provider Surgery Vascular Surgery | DX: I73.9 Peripheral vascular disease, unspecified (principal); Z89.421 Acquired absence of other right toe(s) | CPT/HCPCS: 99212 ==

== ENCOUNTER 2024-03-04 10:27 | Outpatient (AMB) | payer MEDICARE, MEDICAID, SELFPAY ==
--- NOTE | 2024-03-04 10:31 | HO.NEPHOV_ITS ---
Vital Signs 03/04/24 10:32 Height 5 ft 5 in BP 182/86 H Blood Pressure Location Rt brachial Position Sitting Pulse 62 Pulse Source Pulse Oximeter Pulse Oximetry (%) 98 Oxygen Delivery Method Room Air Intake Visit Reasons: R/S 02/14/2024/ LM Drawer In Plain Loom Required: No Accompanied by: Son Allergies penicillin V Allergy (Unknown, Verified 03/04/24 10:44) RSH,ITCHY HPI Comments Details: 72-year-old female with pertinent history of peripheral arterial disease status left BKA, essential hypertension, insulin-dependent diabetes mellitus who recently had sepsis needing antibiotics.Imaging with severe stenosis in the distal right superior femoral artery and occlusion of the distal right posterior tibial artery. She underwent transmetarsal ampuation of the rith foot on 08/31/[address] Puentes after angiogram with /p right peroneal plasty,sfa plasty on 08/28/23. She had hyperkalemia which was treated with Lokelma after discontinuat ion of losartan with resolution of her high potassium levels. She had normocytic anemia likely due to chronic inflammation and had declined transfusion during recent hospitalization. She denies any chest pain, shortness of breath, paroxysmal nocturnal dyspnea, orthopnea, pedal edema or urinary symptoms. She does not take any nonsteroidal anti-inflammatories. She tries to maintain good hydration. [facility] Medical History Essential hypertension Acute systolic CHF (congestive heart failure) PAD (peripheral artery disease) Hypertension Mood disorder Diabetes Surgical History History of transmetatarsal amputation of right foot (08/31/23) History of left below knee amputation History of femoral angiogram History of left below knee amputation Pacemaker Social History Household Members: Family and Children Housing: House Unable to assess alcohol history related to: Unknown Alcohol intake: current Alcohol intake frequency: holidays/special occasions only Patient Tobacco Use Status: Never used Tobacco service: No Current occupational status: retired Review of Systems Const All systems reviewed & are unremarkable except as noted in HPI and below Physical Exam Vital Signs: Last Vital Signs Pulse 62 03/04/24 10:32 BP 182/86 H 03/04/24 10:32 Pulse Ox 98 03/04/24 10:32 Oxygen Delivery Method Room Air 03/04/24 10:32 Const General: no acute distress Orientation/consciousness: patient oriented x3 Eyes EOM: EOMs intact bilaterally Neck Neck: Yes no JVD Resp Auscultation: diminished lung sounds Cardio Rate: regular rate GI Palpation (GI): Soft to palpation Neuro General: patient oriented x3 Results Reviewed Nephrology Results: Hgb 11.3 g/dl (12.0-16.0) L 11/15/23 WBC 4.8 X10*3/uL (4.8-10.8) 11/15/23 Plt Count 246 X10*3/uL (160-400) 11/15/23 Sodium 138 mmol/L (135-145) 11/15/23 Potassium 5.0 mmol/L (3.3-5.1) 11/15/23 Chloride 105 mmol/L (96-108) 11/15/23 Carbon Dioxide 27 mmol/L (22-29) 11/15/23 BUN 31 mg/dL (9-16) H 11/15/23 Creatinine 1.94 mg/dL (0.5-1.4) H 11/15/23 Calcium 9.6 mg/dL (8.4-10.2) 11/15/23 Phosphorus 4.5 mg/dL (2.7-4.5) 11/15/23 PTH Intact 58.2 pg/mL (8.7-77.1) 11/15/23 Assessment & Plan Assessment & Plan (1) CKD (chronic kidney disease) stage 3, GFR 30-59 ml/min: Code(s): N18.30 - Chronic kidney disease, stage 3 unspecified Category: Medical Qualifiers: Chronic kidney disease stage 3 subtype: stage 3b (GFR 30-44) Qualified Code(s): N18.32 - Chronic kidney disease, stage 3b (2) Essential hypertension: Code(s): I10 - Essential (primary) hypertension Category: Medical (3) PAD (peripheral artery disease): Comment: 08/31/2023 - right transmetatarsal amputation Code(s): I73.9 - Peripheral vascular disease, unspecified Category: Medical (4) History of left below knee amputation: Code(s): Z89.512 - Acquired absence of left leg below knee Category: Surgical Plan Belkys recently had acute kidney injury on a backdrop of chronic kidney disease, due to sepsis as well as contrast from angiography. She also had heart failure which has resolved. Her CKD is likely from vascular disease. There is no reason to suspect [place] infectious glomerulonephritis or AIN. Her urine output is good and it is unlikely that she has obstructive uropathy. She is off angiotensin receptor jose angel. I will continue her her rest of her current medications for now . She will be a candidate for Procrit injections in the future. I did not make any medication changes today. If her GFR is appropriate, she will be a candidate for Jardiance or Farxiga in the future. She should avoid nonsteroidal anti-inflammatory medications and maintain good hydration. Follow-up blood work ordered , answered her and her son's questions. Follow-up given Orders: Orders Electrolytes Today I10 - Essential (primary) hypertension, I73.9 - Peripheral vascular disease, unspecified, N18.32 - Chronic kidney disease, stage 3b, Z89.512 - Acquired absence of left leg below knee Parathyroid Hormone Intact Today I10 - Essential (primary) hypertension, I73.9 - Peripheral vascular disease, unspecified, N18.32 - Chronic kidney disease, stage 3b, Z89.512 - Acquired absence of left leg below knee Complete Blood Count Auto Diff Today I10 - Essential (primary) hypertension, I73.9 - Peripheral vascular disease, unspecified, N18.32 - Chronic kidney disease, stage 3b, Z89.512 - Acquired absence of left leg below knee Ferritin Today I10 - Essential (primary) hypertension, I73.9 - Peripheral vascular disease, unspecified, N18.32 - Chronic kidney disease, stage 3b, Z89.512 - Acquired absence of left leg below knee IRON PROFILE Today I10 - Essential (primary) hypertension, I73.9 - Peripheral vascular disease, unspecified, N18.32 - Chronic kidney disease, stage 3b, Z89.512 - Acquired absence of left leg below knee Creatinine Today I10 - Essential (primary) hypertension, I73.9 - Peripheral vascular disease, unspecified, N18.32 - Chronic kidney disease, stage 3b, Z89.512 - Acquired absence of left leg below knee Blood Urea Nitrogen Today I10 - Essential (primary) hypertension, I73.9 - Peripheral vascular disease, unspecified, N18.32 - Chronic kidney disease, stage 3b, Z89.512 - Acquired absence of left leg below knee Calcium Today I10 - Essential (primary) hypertension, I73.9 - Peripheral vascular disease, unspecified, N18.32 - Chronic kidney disease, stage 3b, Z89.512 - Acquired absence of left leg below knee Vitamin D 25-OH Total Today I10 - Essential (primary) hypertension, I73.9 - Peripheral vascular disease, unspecified, N18.32 - Chronic kidney disease, stage 3b, Z89.512 - Acquired absence of left leg below knee Coding Level of Care Code Est Pt Level 4 (11171) Diagnoses Stage 3b chronic kidney disease N18.32 Chronic kidney disease stage 3 subtype: stage 3b (GFR 30-44) Essential hypertension I10 PAD (peripheral artery disease) I73.9 History of left below knee amputation Z89.512
[2024-03-04 10:32] VITALS: BP 182/86; PULSE 62; O2SAT 98
== END 2024-03-04 11:11 | disposition home or self-care (01) ==
PROVIDERS: Visit Provider Internal Medicine Nephrology
DX: N18.32 Chronic kidney disease, stage 3b (principal); I10 Essential (primary) hypertension; I73.9 Peripheral vascular disease, unspecified; Z89.512 Acquired absence of left leg below knee
CPT/HCPCS: 99214

== ENCOUNTER 2024-03-04 11:19 | Outpatient (REF) | payer MEDICARE, MEDICAID, SELFPAY ==
[2024-03-04 13:18] LABS: MANUAL DIFF FLAG NO
[2024-03-04 13:30] LABS: Basophils Percent Auto 0.6 % (0-2); Eosinophils Absolute Auto 0.1 X10*3/uL (0.0-0.4); Eosinophils Percent Auto 1.7 % (0-4); Hematocrit 29.5 % (37.0-47.0); Hemoglobin 9.3 g/dl (12.0-16.0); Imm Gran Abs Auto 0.01 X10*3/uL (0.00-0.03); Imm Gran Pct Auto 0.2 % (0.0-0.4); Lymphocytes Absolute Auto 0.9 X10*3/uL (1.2-4.9); Lymphocytes Percent Auto 17.6 % (20-40); Mean Corpuscular HGB Conc 31.5 g/dl (31.0-35.0); Mean Corpuscular Hemoglobin 26.5 pg (27.0-33.0); Mean Platelet Volume 10.4 fL (9.4-12.3); Monocytes Absolute Auto 0.7 X10*3/uL (0.1-1.2); Monocytes Percent Auto 14.9 % (2-11); Neutrophils Absolute Auto 3.1 x10*3/uL (2.0-8.3); Platelet Count 267 X10*3/uL (160-400); Red Blood Count 3.51 X10*6/uL (4.20-5.50); Red Cell Distribution Width 15.6 % (11.0-16.0); White Blood Count 4.8 X10*3/uL (4.8-10.8)
[2024-03-04 13:45] LABS: Anion Gap 14 (12-20); Blood Urea Nitrogen 42 mg/dL (9-16); Calcium 9.8 mg/dL (8.4-10.2); Carbon Dioxide 25 mmol/L (22-29); Chloride 103 mmol/L (96-108); Estimated Glomerular Filt Rate 27; Iron 40 mcg/dL (30-160); Percent Iron Saturation 14 % (15-50); Potassium 4.9 mmol/L (3.3-5.1); Sodium 137 mmol/L (135-145); Total Iron Binding Capacity 291 mcg/dL (228-428); Unsaturated Iron Binding 251 ug/dL
[2024-03-04 14:03] LABS: Ferritin 86 ng/mL (10-250)
[2024-03-04 14:04] LABS: Parathyroid Hormone Intact 61.8 pg/mL (8.7-77.1)
== END 2024-03-04 11:20 | disposition home or self-care (01) ==
LOC: HO.10HDL 11:19
PROVIDERS: Visit Provider Internal Medicine Nephrology
DX: I12.9 Hypertensive chronic kidney disease with stage 1 through stage 4 chronic kidney disease, or unspecified chronic kidney disease (principal); N18.32 Chronic kidney disease, stage 3b; I73.9 Peripheral vascular disease, unspecified; Z89.512 Acquired absence of left leg below knee
CPT/HCPCS: 36415; 80051; 82306; 82310; 82565; 82728; 83540; 83970; 84520; 85025; 99212

== ENCOUNTER 2024-03-19 11:09 | Outpatient (AMB) | payer MEDICARE, MEDICAID, SELFPAY ==
[2024-03-19 11:23] VITALS: BMI 26.6
--- NOTE | 2024-03-19 11:23 | A.OFFVIS_ITS ---
Vital Signs 03/19/24 11:23 Height 5 ft 5 in Weight 160 lb BMI 26.6 Intake Visit Reasons: 1m wound check Intake Note: 1 mo wound check right transmet, no more black tissue, does have drainage. changes dressing daily. Accompanied by: Son Allergies penicillin V Allergy (Unknown, Verified 03/19/24 11:28) RSH,ITCHY HPI HPI 1m wound check: Details: Very pleasant 73-year-old female presents for follow-up status post right transmetatarsal amputation which was originally done in August of 2023. It actually continues to progress nicely. At 1 point there was fear of possible amputation but it continues to slowly progress. She now presents for routine follow-up. Of note she is now at home and her son continues to take care of her. She appears to be doing much better now that she is back at home and back to her normal regimen and diet. [facility] Medical History Essential hypertension Acute systolic CHF (congestive heart failure) PAD (peripheral artery disease) Hypertension Mood disorder Diabetes Surgical History History of transmetatarsal amputation of right foot (08/31/23) History of left below knee amputation History of femoral angiogram History of left below knee amputation Pacemaker Social History Household Members: Family and Children Housing: House Unable to assess alcohol history related to: Unknown Alcohol intake: current Alcohol intake frequency: holidays/special occasions only Patient Tobacco Use Status: Never used Tobacco service: No Current occupational status: retired Review of Systems Const All systems reviewed & are unremarkable except as noted in HPI and below Reports no additional complaints ENT Reports Normal hearing present Card Denies chest pain, Denies chest pain at rest, Denies chest pain with activity and Denies pedal edema Resp Denies cough GI Denies abdominal pain Musc Denies abnormal gait, Denies muscle cramps and Denies radiating pain into limb Skin/Breast Denies skin ulcer and Denies wounds Neuro Reports Normal hearing present and Denies abnormal gait Psych Reports no additional complaints Physical Exam Vital Signs: BMI result Body Mass Index 26.6 Const General: cooperative, healthy appearing and comfortable Orientation/consciousness: oriented to person, oriented to place and oriented to time HEENT Head: Yes normal to inspection Neck Neck: Yes normal visual inspection Carotids: no bruits Chest Chest palpation & inspection: normal inspection of the chest Resp Effort & Inspection: normal respiratory effort and able to speak in complete sentences Auscultation: clear to auscultation bilaterally, no crackles, no rales, no rhonchi and no wheezes Cardio Rate: regular rate Rhythm: regular rhythm Heart sounds: S1 normal heart sound present and S2 normal heart sound present Bruits: no carotid bruits Peripheral pulses: Peripheral pulses 2+ throughout GI Inspection: Yes normal to inspection Skin Other: Right trans met flap is relatively clean. Measures 7 x 5 x 0.1 cm. Excellent granulation bed. Two lateral punctate ulcer Wounds: no wounds Hair: normal Neuro General: oriented to person, oriented to place and oriented to time Cranial nerves: Yes CN's II-XII intact bilaterally and Yes Normal hearing present Cognition (Neuro): normal cognition Motor exam (neuro): 5/5 motor strength present throughout Extrem Other: venous exam: No significant superficial varicosities or spider telang iectasias, minimal edema General: No clubbing, No cyanosis and No edema Psych Appearance: grossly normal Mental Status: mental status grossly normal Speech and movement: Normal speech and movement present Assessment & Plan Assessment & Plan (1) PAD (peripheral artery disease): Comment: 08/31/2023 - right transmetatarsal amputation Code(s): I73.9 - Peripheral vascular disease, unspecified Category: Medical Plan: In short patient has right trans met continues to do relatively well. She did refuse amputation in the past. We will continue with local wound care inclusive of the Silvadene dressings. She will follow up with us in approximately 1 months time. Thank you for allowing us to assist in her care. Coding Level of Care Code Est Pt Level 3 (60441) Diagnoses PAD (peripheral artery disease) I73.9
== END 2024-03-19 11:50 | disposition home or self-care (01) ==
PROVIDERS: Visit Provider Surgery Vascular Surgery
DX: I73.9 Peripheral vascular disease, unspecified (principal)
CPT/HCPCS: 99213

== ENCOUNTER → 2024-03-19 11:09 | Outpatient (BNVA) | payer MEDICARE, MEDICAID, SELFPAY | PROVIDERS: Visit Provider Surgery Vascular Surgery | DX: I73.9 Peripheral vascular disease, unspecified (principal) | CPT/HCPCS: 99212 ==

== ENCOUNTER 2024-04-18 11:29 | Outpatient (AMB) | payer MEDICARE, MEDICAID, SELFPAY ==
[2024-04-18 11:35] VITALS: BP 146/90; BMI 26.6
--- NOTE | 2024-04-18 11:35 | A.OFFVIS_ITS ---
Vital Signs 04/18/24 11:35 Height 5 ft 5 in Weight 160 lb BMI 26.6 BP 146/90 H Blood Pressure Location Lt brachial Position Sitting Intake Visit Reasons: 4 week wound check Intake Note: Pt presents to the office today for a 4 week wound check. Pt states she thinks it looks better than before. Pt states started antibiotics but it gave her diarrhea so they stopped the antibiotic. Allergies penicillin V Allergy (Unknown, Verified 04/18/24 11:36) RSH,ITCHY HPI HPI 4 week wound check: Details: Very pleasant 73-year-old female presents for follow-up regarding right transmetatarsal amputation. It has been since 09/09/2023. Continues to slowly progress. Of note in the interim she was admitted to [facility] for hyperkalemia. Reports that there is no significant change on the right trans met. She now presents for routine follow-up. [facility] Medical History Essential hypertension Acute systolic CHF (congestive heart failure) PAD (peripheral artery disease) Hypertension Mood disorder Diabetes Surgical History History of transmetatarsal amputation of right foot (08/31/23) History of left below knee amputation History of femoral angiogram History of left below knee amputation Pacemaker Social History Household Members: Family and Children Housing: House Unable to assess alcohol history related to: Unknown Alcohol intake: current Alcohol intake frequency: holidays/special occasions only Patient Tobacco Use Status: Never used Tobacco service: No Current occupational status: retired Review of Systems Const All systems reviewed & are unremarkable except as noted in HPI and below Reports no additional complaints ENT Reports Normal hearing present Card Denies chest pain, Denies chest pain at rest, Denies chest pain with activity and Denies pedal edema Resp Denies cough GI Denies abdominal pain Musc Denies abnormal gait, Denies muscle cramps and Denies radiating pain into limb Skin/Breast Denies skin ulcer and Denies wounds Neuro Reports Normal hearing present and Denies abnormal gait Psych Reports no additional complaints Physical Exam Vital Signs: Last Vital Signs BP 146/90 H 04/18/24 11:35 BMI result Body Mass Index 26.6 Const General: cooperative, healthy appearing and comfortable Orientation/consciousness: oriented to person, oriented to place and oriented to time HEENT Head: Yes normal to inspection Neck Neck: Yes normal visual inspection Carotids: no bruits Chest Chest palpation & inspection: normal inspection of the chest Resp Effort & Inspection: normal respiratory effort and able to speak in complete sentences Auscultation: clear to auscultation bilaterally, no crackles, no rales, no rhonchi and no wheezes Cardio Rate: regular rate Rhythm: regular rhythm Heart sounds: S1 normal heart sound present and S2 normal heart sound present Bruits: no carotid bruits Peripheral pulses: Peripheral pulses 2+ throughout GI Inspection: Yes normal to inspection Skin Other: Right transmetatarsal amputation site opening measuring 8 x 5 x 0.1 cm Wounds: no wounds Hair: normal Neuro General: oriented to person, oriented to place and oriented to time Cranial nerves: Yes CN's II-XII intact bilaterally and Yes Normal hearing present Cognition (Neuro): normal cognition Motor exam (neuro): 5/5 motor strength present throughout Extrem Other: venous exam: No significant superficial varicosities or spider telangiectasias, minimal edema General: No clubbing, No cyanosis and No edema Psych Appearance: grossly normal Mental Status: mental status grossly normal Speech and movement: Normal speech and movement present Assessment & Plan Assessment & Plan (1) PAD (peripheral artery disease): Comment: 08/31/2023 - right transmetatarsal amputation Code(s): I73.9 - Peripheral vascular disease, unspecified Category: Medical Plan: In short patient has right transmetatarsal amputation which is slow to heal. Wound was cleaned. Would continue with local wound care as she is resistant to the idea of amputation. She was on antibiotics but was unable to tolerate them. We did tell her to stop at the current time. We have scheduled her for 1 month follow-up. We will try to obtain documentation from [facility] as they may have gotten additional imaging and what antibiotic regimen was given. She will follow up with us once again in 1 month's time. Thank you for allowing us to assist in her care. If there are any questions or concerns please do not hesitate to contact us. Please note a longitudinal relationship has been created with the patient and we have been following and surveillance this chronic condition. Coding Level of Care Code Est Pt Level 4 (86143) Complex EM visit Add On G2211 Diagnoses PAD (peripheral artery disease) I73.9
== END 2024-04-18 12:13 | disposition home or self-care (01) ==
PROVIDERS: Visit Provider Surgery Vascular Surgery
DX: I73.9 Peripheral vascular disease, unspecified (principal)
CPT/HCPCS: 99214; G2211

== ENCOUNTER → 2024-04-18 11:29 | Outpatient (BNVA) | payer MEDICARE, MEDICAID, SELFPAY | PROVIDERS: Visit Provider Surgery Vascular Surgery | DX: I73.9 Peripheral vascular disease, unspecified (principal) | CPT/HCPCS: 99212 ==

== ENCOUNTER 2024-05-21 11:29 | Outpatient (AMB) | payer MEDICARE, MEDICAID, SELFPAY ==
[2024-05-21 11:27] VITALS: BMI 26.6
--- NOTE | 2024-05-21 11:27 | A.OFFVIS_ITS ---
Vital Signs 05/21/24 11:27 Height 5 ft 5 in Weight 160 lb BMI 26.6 Intake Visit Reasons: 1 mo follow up R Transmet wound Intake Note: 1 mo follow up non-healing transmet amp, still using silvadene cream daily, son changes dressing daily Accompanied by: Son Allergies penicillin V Allergy (Unknown, Verified 05/21/24 11:34) RSH,ITCHY HPI HPI 1 mo follow up R Transmet wound: Details: Very pleasant 73-year-old female presents for follow-up status post transmetatarsal amputation. This was actually done back in August of this year. Extremely slow to heal. She did have a visit to [facility] and has completed her course of antibiotics. Overall reports that she is doing fairly well. There is still some serous drainage from the wound but overall continues to do fairly well. She now presents for routine follow-up. [facility] Medical History Essential hypertension Acute systolic CHF (congestive heart failure) PAD (peripheral artery disease) Hypertension Mood disorder Diabetes Surgical History History of transmetatarsal amputation of right foot (08/31/23) History of left below knee amputation History of femoral angiogram History of left below knee amputation Pacemaker Social History Household Members: Family and Children Housing: House Unable to assess alcohol history related to: Unknown Alcohol intake: current Alcohol intake frequency: holidays/special occasions only Patient Tobacco Use Status: Never used Tobacco service: No Current occupational status: retired Review of Systems Const All systems reviewed & are unremarkable except as noted in HPI and below Reports no additional complaints ENT Reports Normal hearing present Card Denies chest pain, Denies chest pain at rest, Denies chest pain with activity and Denies pedal edema Resp Denies cough GI Denies abdominal pain Musc Denies abnormal gait, Denies muscle cramps and Denies radiating pain into limb Skin/Breast Denies skin ulcer and Denies wounds Neuro Reports Normal hearing present and Denies abnormal gait Psych Reports no additional complaints Physical Exam Vital Signs: BMI result Body Mass Index 26.6 Const General: cooperative, healthy appearing and comfortable Orientation/consciousness: oriented to person, oriented to place and oriented to time HEENT Head: Yes normal to inspection Neck Neck: Yes normal visual inspection Carotids: no bruits Chest Chest palpation & inspection: normal inspection of the chest Resp Effort & Inspection: normal respiratory effort and able to speak in complete sentences Auscultation: clear to auscultation bilaterally, no crackles, no rales, no rhonchi and no wheezes Cardio Rate: regular rate Rhythm: regular rhythm Heart sounds: S1 normal heart sound present and S2 normal heart sound present Bruits: no carotid bruits Peripheral pulses: Peripheral pulses 2+ throughout GI Inspection: Yes normal to inspection Skin Other: Trans met amp site on right central wound measures about 6 x 3 x 0.2 and lateral is 0.8 cm. Overall fairly clean but there is some fibrinous material overlying. In addition there is some serous drainage. Wounds: no wounds Hair: normal Neuro General: oriented to person, oriented to place and oriented to time Cranial nerves: Yes CN's II-XII intact bilaterally and Yes Normal hearing present Cognition (Neuro): normal cognition Motor exam (neuro): 5/5 motor strength present throughout Extrem Other: venous exam: No significant superficial varicosities or spider telangiectasias, minimal edema General: No clubbing, No cyanosis and No edema Psych Appearance: grossly normal Mental Status: mental status grossly normal Speech and movement: Normal speech and movement present Assessment & Plan Assessment & Plan (1) PAD (peripheral artery disease): Comment: 08/31/2023 - right transmetatarsal amputation Code(s): I73.9 - Peripheral vascular disease, unspecified Category: Medical Plan: In short transmetatarsal amputation is slow to progress but is progressing. Continue with local wound care. She will follow up with us in approximately 1 months time. Of note we did change the Silvadene cream dressing to an alginate dressing. Hopefully this may collect some of this serous material. Thank you for allowing us to assist in her care. If there are any questions or concerns please do not hesitate to contact us. Please note a longitudinal relationship has been created with the patient and we have been following and surveillance this chronic condition. Coding Level of Care Code Est Pt Level 4 (89762) Complex EM visit Add On G2211 Diagnoses PAD (peripheral artery disease) I73.9
== END 2024-05-21 11:49 | disposition home or self-care (01) ==
PROVIDERS: Visit Provider Surgery Vascular Surgery
DX: I73.9 Peripheral vascular disease, unspecified (principal)
CPT/HCPCS: 99214; G2211

== ENCOUNTER → 2024-05-21 11:29 | Outpatient (BNVA) | payer MEDICARE, MEDICAID, SELFPAY | PROVIDERS: Visit Provider Surgery Vascular Surgery | DX: I73.9 Peripheral vascular disease, unspecified (principal); S91.301A Unspecified open wound, right foot, initial encounter; X58.XXXA Exposure to other specified factors, initial encounter; Y93.9 Activity, unspecified; Y92.9 Unspecified place or not applicable; Y99.9 Unspecified external cause status; T87.89 Other complications of amputation stump; Z89.421 Acquired absence of other right toe(s) | CPT/HCPCS: 99212 ==

== ENCOUNTER 2024-06-25 11:29 | Outpatient (AMB) | payer MEDICARE, MEDICAID, SELFPAY ==
[2024-06-25 11:45] VITALS: BMI 26.6
--- NOTE | 2024-06-25 11:45 | A.OFFVIS_ITS ---
Vital Signs 06/25/24 11:45 Height 5 ft 5 in Weight 160 lb BMI 26.6 Intake Visit Reasons: 1m wound check Intake Note: 1 mo wound check Right Transmet amp. Pt states that it was looking better until about 3 days ago when she started getting some swelling. Bandage is being changed everyday w/ Alginate. Accompanied by: Son Allergies penicillin V Allergy (Unknown, Verified 06/25/24 11:48) RSH,ITCHY HPI HPI 1m wound check: Details: Very pleasant 73-year-old female presents for follow-up regarding her transmetatarsal amputation which was done August of this year. It appears to be slow to close but it has significantly improved since we initially saw out. She is being cared for by her son at home. She now presents for follow-up regarding this right transmetatarsal amputation [facility] Medical History Essential hypertension Acute systolic CHF (congestive heart failure) PAD (peripheral artery disease) Hypertension Mood disorder Diabetes Surgical History History of transmetatarsal amputation of right foot (08/31/23) History of left below knee amputation History of femoral angiogram History of left below knee amputation Pacemaker Social History Household Members: Family and Children Housing: House Unable to assess alcohol history related to: Unknown Alcohol intake: current Alcohol intake frequency: holidays/special occasions only Patient Tobacco Use Status: Never used Tobacco service: No Current occupational status: retired Review of Systems Const All systems reviewed & are unremarkable except as noted in HPI and below Reports no additional complaints ENT Reports Normal hearing present Card Denies chest pain, Denies chest pain at rest, Denies chest pain with activity and Denies pedal edema Resp Denies cough GI Denies abdominal pain Musc Denies abnormal gait, Denies muscle cramps and Denies radiating pain into limb Skin/Breast Denies skin ulcer and Denies wounds Neuro Reports Normal hearing present and Denies abnormal gait Psych Reports no additional complaints Physical Exam Vital Signs: BMI result Body Mass Index 26.6 Const General: cooperative, healthy appearing and comfortable Orientation/consciousness: oriented to person, oriented to place and oriented to time HEENT Head: Yes normal to inspection Neck Neck: Yes normal visual inspection Carotids: no bruits Chest Chest palpation & inspection: normal inspection of the chest Resp Effort & Inspection: normal respiratory effort and able to speak in complete sentences Auscultation: clear to auscultation bilaterally, no crackles, no rales, no rhonchi and no wheezes Cardio Rate: regular rate Rhythm: regular rhythm Heart sounds: S1 normal heart sound present and S2 normal heart sound present Bruits: no carotid bruits Peripheral pulses: Peripheral pulses 2+ throughout GI Inspection: Yes normal to inspection Skin Other: Right transmetatarsal amputation measures 5 x 3 x 0.2 cm and there is a right lateral opening a proximally 0.8 cm. In general it appears to be closing with islands of growth in the center of it. There is some serous drainage from the amp site as well. Wounds: no wounds Hair: normal Neuro General: oriented to person, oriented to place and oriented to time Cranial nerves: Yes CN's II-XII intact bilaterally and Yes Normal hearing present Cognition (Neuro): normal cognition Motor exam (neuro): 5/5 motor strength present throughout Extrem Other: venous exam: No significant superficial varicosities or spider telangiectasias, minimal edema General: No clubbing, No cyanosis and No edema Psych Appearance: grossly normal Mental Status: mental status grossly normal Speech and movement: Normal speech and movement present Assessment & Plan Assessment & Plan (1) PAD (peripheral artery disease): Comment: 08/31/2023 - right transmetatarsal amputation Code(s): I73.9 - Peripheral vascular disease, unspecified Category: Medical Plan: In short she is doing well in terms of a transmetatarsal amputation. It is slowly progressing. I did have an overall discussion with the patient and the son to continue with local wound care. In addition we did have a discussion about nutrition and increasing of protein intake. She will continue with alginate dressings. We did discuss the use of sterile water as there is a national shortage of saline at the current time. Thank you for allowing us to assist in her care. If there are any questions or concerns please do not he sitate to contact us. Please note a longitudinal relationship has been created with the patient and we have been following and surveillance this chronic condition. Coding Level of Care Code Est Pt Level 4 (21170) Complex EM visit Add On G2211 Diagnoses PAD (peripheral artery disease) I73.9
== END 2024-06-25 12:07 | disposition home or self-care (01) ==
LOC: HO.HVS 11:30
PROVIDERS: Visit Provider Surgery Vascular Surgery
DX: I73.9 Peripheral vascular disease, unspecified (principal)
CPT/HCPCS: 99214; G2211

== ENCOUNTER → 2024-06-25 11:29 | Outpatient (BNVA) | payer MEDICARE, MEDICAID, SELFPAY | PROVIDERS: Visit Provider Surgery Vascular Surgery | DX: I73.9 Peripheral vascular disease, unspecified (principal) | CPT/HCPCS: 99212 ==

== ENCOUNTER 2024-07-05 12:17 | Outpatient (AMB) | payer MEDICARE, MEDICAID, SELFPAY ==
--- NOTE | 2024-07-05 12:20 | HO.NEPHOV_ITS ---
Vital Signs 07/05/24 12:21 Height 5 ft 5 in BP 154/90 H Blood Pressure Location Rt brachial Position Sitting Pulse 70 Pulse Source Pulse Oximeter Pulse Oximetry (%) 96 Oxygen Delivery Method Room Air Intake Visit Reasons: R/S 06/07/24-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 She had transmetarsal ampuation of the rigth foot on 08/31/[address] Puentes after angiogram with /p right peroneal plasty,sfa plasty on 08/28/23. She had hyperkalemia which was treated with Lokelma after discontinuation of losartan with resolution of her high potassium levels. She had normocytic anemia likely due to chronic inflammation and had declined transfusion during last hospitalization. She denies any chest pain, shortness of breath, paroxysmal nocturnal dyspnea, orthopnea, pedal edema or urinary symptoms. She does not take any nonsteroidal anti-inflammatories. She tries to maintain good hydration. [facility] Medical History Essential hypertension Acute systolic CHF (congestive heart failure) PAD (peripheral artery disease) Hypertension Mood disorder Diabetes Surgical History History of transmetatarsal amputation of right foot (08/31/23) History of left below knee amputation History of femoral angiogram History of left below knee amputation Pacemaker Social History Household Members: Family and Children Housing: House Unable to assess alcohol history related to: Unknown Alcohol intake: current Alcohol intake frequency: holidays/special occasions only Patient Tobacco Use Status: Never used Tobacco service: No Current occupational status: retired Review of Systems Const All systems reviewed & are unremarkable except as noted in HPI and below Physical Exam Const General: comfortable and no acute distress Orientation/consciousness: patient oriented x3 HEENT Head: Yes normocephalic Mouth: Normal oral and palatal mucosa present Eyes EOM: EOMs intact bilaterally Neck Neck: Yes supple Resp Auscultation: clear to auscultation bilaterally Cardio Jugular venous distension: no JVD Rate: regular rate GI Palpation (GI): Soft to palpation Auscultation: normal bowel sounds General: Yes no CVA tenderness Back/Spine/Pelvis Back: no CVA tenderness Skin General skin exam: no rashes or lesions noted Neuro General: patient oriented x3 and moves all extremities Assessment & Plan Assessment & Plan (1) CKD (chronic kidney disease) stage 3, GFR 30-59 ml/min: Code(s): N18.30 - Chronic kidney disease, stage 3 unspecified Category: Medical Qualifiers: Chronic kidney disease stage 3 subtype: stage 3b (GFR 30-44) Qualified Code(s): N18.32 - Chronic kidney disease, stage 3b (2) Essential hypertension: Code(s): I10 - Essential (primary) hypertension Category: Medical (3) PAD (peripheral artery disease): Comment: 08/31/2023 - right transmetatarsal amputation Code(s): I73.9 - Peripheral vascular disease, unspecified Category: Medical (4) Anemia in chronic kidney disease (CKD): Code(s): N18.9 - Chronic kidney disease, unspecified; D63.1 - Anemia in chronic kidney disease Category: Medical Plan Belkys has CKD and her renal functions had been close to baseline. She has H/O heart failure which has resolved. Her CKD is likely from vascular disease. Her urine output is good. She is off angiotensin receptor jose angel. I will continue her her rest of her current medications for now . She will be a candidate for Procrit injections in the future. I did not make any medication changes today. If her GFR is appropriate, she will be a candidate for Jardiance in the future. She should avoid nonsteroidal anti-inflammatory medications and maintain good hydration. Follow-up blood work ordered , answered her and her son's questions. Follow-up given Orders: Orders Complete Blood Count Auto Diff 3 Months D63.1 - Anemia in chronic kidney disease, I10 - Essential (primary) hypertension, I73.9 - Peripheral vascular disease, unspecified, N18.32 - Chronic kidney disease, stage 3b, N18.9 - Chronic kidney disease, unspecified Ferritin 3 Months D63.1 - Anemia in chronic kidney disease, I10 - Essential (primary) hypertension, I73.9 - Peripheral vascular disease, unspecified, N18.32 - Chronic kidney disease, stage 3b, N18.9 - Chronic kidney disease, unspecified Vitamin D 25-OH Total 3 Months D63.1 - Anemia in chronic kidney disease, I10 - Essential (primary) hypertension, I73.9 - Peripheral vascular disease, unspecified, N18.32 - Chronic kidney disease, stage 3b, N18.9 - Chronic kidney disease, unspecified Parathyroid Hormone Intact 3 Months D63.1 - Anemia in chronic kidney disease, I10 - Essential (primary) hypertension, I73.9 - Peripheral vascular disease, un specified, N18.32 - Chronic kidney disease, stage 3b, N18.9 - Chronic kidney disease, unspecified Electrolytes 3 Months D63.1 - Anemia in chronic kidney disease, I10 - Essential (primary) hypertension, I73.9 - Peripheral vascular disease, unspecified, N18.32 - Chronic kidney disease, stage 3b, N18.9 - Chronic kidney disease, unspecified IRON PROFILE 3 Months D63.1 - Anemia in chronic kidney disease, I10 - Essential (primary) hypertension, I73.9 - Peripheral vascular disease, unspecified, N18.32 - Chronic kidney disease, stage 3b, N18.9 - Chronic kidney disease, unspecified Creatinine 3 Months D63.1 - Anemia in chronic kidney disease, I10 - Essential (primary) hypertension, I73.9 - Peripheral vascular disease, unspecified, N18.32 - Chronic kidney disease, stage 3b, N18.9 - Chronic kidney disease, unspecified Blood Urea Nitrogen 3 Months D63.1 - Anemia in chronic kidney disease, I10 - Essential (primary) hypertension, I73.9 - Peripheral vascular disease, unspecified, N18.32 - Chronic kidney disease, stage 3b, N18.9 - Chronic kidney disease, unspecified Calcium 3 Months D63.1 - Anemia in chronic kidney disease, I10 - Essential (primary) hypertension, I73.9 - Peripheral vascular disease, unspecified, N18.32 - Chronic kidney disease, stage 3b, N18.9 - Chronic kidney disease, unspecified Coding Level of Care Code Est Pt Level 4 (08880) Diagnoses Stage 3b chronic kidney disease N18.32 Chronic kidney disease stage 3 subtype: stage 3b (GFR 30-44) Essential hypertension I10 PAD (peripheral artery disease) I73.9 Anemia in chronic kidney disease (CKD) N18.9; D63.1
[2024-07-05 12:21] VITALS: BP 154/90; PULSE 70; O2SAT 96
== END 2024-07-05 12:43 | disposition home or self-care (01) ==
PROVIDERS: Visit Provider Internal Medicine Nephrology
DX: I12.9 Hypertensive chronic kidney disease with stage 1 through stage 4 chronic kidney disease, or unspecified chronic kidney disease (principal); N18.32 Chronic kidney disease, stage 3b; I73.9 Peripheral vascular disease, unspecified; D63.1 Anemia in chronic kidney disease
CPT/HCPCS: 99214

== ENCOUNTER → 2024-07-05 12:17 | Outpatient (BNVA) | payer MEDICARE, MEDICAID, SELFPAY | PROVIDERS: Visit Provider Internal Medicine Nephrology | DX: I12.9 Hypertensive chronic kidney disease with stage 1 through stage 4 chronic kidney disease, or unspecified chronic kidney disease (principal); I73.9 Peripheral vascular disease, unspecified; N18.32 Chronic kidney disease, stage 3b; D63.1 Anemia in chronic kidney disease | CPT/HCPCS: 99212 ==

== ENCOUNTER 2024-07-23 11:07 | Outpatient (AMB) | payer MEDICARE, MEDICAID, SELFPAY ==
--- NOTE | 2024-07-23 11:15 | MHC.OFFVIS ---
Intake Visit Reasons: 1 month follow up wound check Intake Note: Patient presents for follow up wound check. Accompanied by: Child Allergies penicillin V Allergy (Unknown, Verified 07/23/24 11:17) RSH,ITCHY HPI HPI 1 month follow up wound check: Details: Very pleasant 73-year-old female presents for follow-up regarding transmetatarsal amputation which was done nearly a year ago. It continues to be slowly healing but is progressing nicely. He presents for follow-up with her son. PFSH Medical History Essential hypertension Acute systolic CHF (congestive heart failure) PAD (peripheral artery disease) Hypertension Mood disorder Diabetes Surgical History History of transmetatarsal amputation of right foot (08/31/23) History of left below knee amputation History of femoral angiogram History of left below knee amputation Pacemaker Social History Household Members: Family and Children Housing: House Unable to assess alcohol history related to: Unknown Alcohol intake: current Alcohol intake frequency: holidays/special occasions only Patient Tobacco Use Status: Never used Tobacco service: No Current occupational status: retired Review of Systems Const All systems reviewed & are unremarkable except as noted in HPI and below Reports no additional complaints ENT Reports Normal hearing present Card Denies chest pain, Denies chest pain at rest, Denies chest pain with activity and Denies pedal edema Resp Denies cough GI Denies abdominal pain Musc Denies abnormal gait, Denies muscle cramps and Denies radiating pain into limb Skin/Breast Denies skin ulcer and Denies wounds Neuro Reports Normal hearing present and Denies abnormal gait Psych Reports no additional complaints Physical Exam Const General: cooperative, healthy appearing and comfortable Orientation/consciousness: oriented to person, oriented to place and oriented to time HEENT Head: Yes normal to inspection Neck Neck: Yes normal visual inspection Carotids: no bruits Chest Chest palpation & inspection: normal inspection of the chest Resp Effort & Inspection: normal respiratory effort and able to speak in complete sentences Auscultation: clear to auscultation bilaterally, no crackles, no rales, no rhonchi and no wheezes Cardio Rate: regular rate Rhythm: regular rhythm Heart sounds: S1 normal heart sound present and S2 normal heart sound present Bruits: no carotid bruits Peripheral pulses: Peripheral pulses 2+ throughout GI Inspection: Yes normal to inspection Skin Other: Right amp nonhealing site measures 5 x 3.5 x 0.1 cm. Reasonable granulation base with healing islands within. Wounds: no wounds Hair: normal Neuro General: oriented to person, oriented to place and oriented to time Cranial nerves: Yes CN's II-XII intact bilaterally and Yes Normal hearing present Cognition (Neuro): normal cognition Motor exam (neuro): 5/5 motor strength present throughout Extrem Other: venous exam: No significant superficial varicosities or spider telangiectasias, minimal edema General: No clubbing, No cyanosis and No edema Psych Appearance: grossly normal Mental Status: mental status grossly normal Speech and movement: Normal speech and movement present Assessment & Plan Assessment & Plan (1) PAD (peripheral artery disease): Comment: 08/31/2023 - right transmetatarsal amputation Code(s): I73.9 - Peripheral vascular disease, unspecified Category: Medical Plan: In short patient has a nonhealing transmetatarsal flap. It continues to progress nicely. We did discussed local wound care. The patient will follow up with us in approximately 2-3 weeks. In addition we did discuss offloading an appropriate nutrition. Thank you for allowing us to assist in her care. If there are any questions or concerns please do not hesitate to contact us. Coding Level of Care Code Est Pt Level 3 (79753) Diagnoses PAD (peripheral artery disease) I73.9
== END 2024-07-23 11:48 | disposition home or self-care (01) ==
PROVIDERS: Visit Provider Surgery Vascular Surgery
DX: I73.9 Peripheral vascular disease, unspecified (principal)
CPT/HCPCS: 99213

== ENCOUNTER → 2024-07-23 11:07 | Outpatient (BNVA) | payer MEDICARE, MEDICAID, SELFPAY | PROVIDERS: Visit Provider Surgery Vascular Surgery | DX: S91.301D Unspecified open wound, right foot, subsequent encounter (principal); I73.9 Peripheral vascular disease, unspecified; T87.89 Other complications of amputation stump; X58.XXXD Exposure to other specified factors, subsequent encounter; Z89.421 Acquired absence of other right toe(s); Z89.512 Acquired absence of left leg below knee | CPT/HCPCS: 99212 ==

== ENCOUNTER 2024-08-07 13:06 | Outpatient (AMB) | payer MEDICARE, MEDICAID, SELFPAY ==
--- NOTE | 2024-08-07 13:16 | A.OFFVIS_ITS ---
Vital Signs 08/07/24 13:22 Height 5 ft 5 in Weight 160 lb BMI 26.6 Intake Visit Reasons: wound care Intake Note: wound care check for Right Transmet amp 08/31/2023. Pt has dressing changes daily and has a new spot near her ankle that looks to be some sort of irritated/ blistered area Accompanied by: Son Allergies penicillin V Allergy (Unknown, Verified 08/07/24 13:21) RSH,ITCHY HPI HPI wound care: Details: Belkys, a very pleasant 73 yo [place] Creole speaking female patient, is presenting today with her son for wound care for a nonhealing right TMA, from 1y ago. Her sons have been providing wound care dressing changes daily. She denies any pain at the site. She does have a new spot on the medial aspect of her ankle, just noticed today when her dressing was taken off upon arrival here. There have been no injuries to the area and the pt is not weight bearing on her TMA site. She is wearing the postop shoe, but only when she is coming to appts or going out of the house. Her son states he is using alginate with 4x4 and kerlix wrap daily for dressing changes. [facility] Medical History Essential hypertension Acute systolic CHF (congestive heart failure) PAD (peripheral artery disease) Hypertension Mood disorder Diabetes Surgical History History of transmetatarsal amputation of right foot (08/31/23) History of left below knee amputation History of femoral angiogram History of left below knee amputation Pacemaker Social History Household Members: Family and Children Housing: House Unable to assess alcohol history related to: Unknown Alcohol intake: current Alcohol intake frequency: holidays/special occasions only Patient Tobacco Use Status: Never used Tobacco service: No Current occupational status: retired Review of Systems Const Reports as per HPI and Denies weakness ENT Reports Normal hearing present and Denies dizziness Card Reports as per HPI, Denies chest pain, Denies chest pain at rest, Denies chest pain with activity, Denies dyspnea and Denies dyspnea on exertion Resp Reports as per HPI, Denies cough, Denies dyspnea and Denies dyspnea on exertion GI Reports as per HPI, Denies abdominal pain, Denies nausea and Denies vomiting Musc Denies numbness Skin/Breast Reports as per HPI, Denies erythema and Denies wounds Neuro Reports Normal hearing present, Denies dizziness, Denies numbness, Denies Sensory deficit (Neuro) and Denies weakness Psych Reports no additional complaints Endo Reports no additional complaints Physical Exam Vital Signs: BMI result Body Mass Index 26.6 Const General: healthy appearing and no acute distress Orientation/consciousness: patient oriented x3 HEENT Head: Yes normal to inspection Ears: hearing grossly normal bilaterally Mouth: Normal oral and palatal mucosa present Resp Effort & Inspection: normal respiratory effort and able to speak in complete sentences Auscultation: clear to auscultation bilaterally Cardio Jugular venous distension: no JVD Rate: regular rate Rhythm: regular rhythm Heart sounds: S1 normal heart sound present and S2 normal heart sound present Bruits: no abdominal aortic bruits, no carotid bruits, no femoral bruits and no renal bruits Peripheral pulses: Peripheral pulses 2+ throughout GI Inspection: Yes normal to inspection Palpation (GI): No Abdominal aortic bruit present Skin General skin exam: no rashes or lesions noted Wounds: no wounds Hair: normal Neuro General: patient oriented x3 Cranial nerves: Yes Normal hearing present Cognition (Neuro): normal cognition Gait exam (Neuro): Normal gait present Motor exam (neuro): 5/5 motor strength present throughout Sensory Exam: No Sensory deficit (Neuro) Extrem Other: Right TMA site: measuring 4.8x3.3x0.1, decreased from 12/03 (5x3.5x0.1cm). [place] granulation wound base. Slight yellow sloughing noted on the rolled wound edges. No bleeding noted. Palpable DP pulse. Right medial ankle: [id number] almost skin tear without bleeding. Slight film noted, easily wiped off. General: Yes normal to inspection, Yes full ROM, Yes capillary refill normal and Yes normal gait Assessment & Plan Assessment & Plan (1) PAD (peripheral artery disease): Comment: 08/31/2023 - right transmetatarsal amputation Code(s): I73.9 - Peripheral vascular disease, unspecified Category: Medical Plan: Belkys is presenting today with her son, whom is translating, for a follow up for wound care of a slow healing right TMA. There was a new skin tear like site noted on her medial ankle. We will be watching this closely so it does not turn into an ulceration. I discussed in length with both the pt and her son to watch it closely and if it starts to get red/warm/change, to reach out to us immediately and we will have her come back in. I discussed with the son and the pt to continue with the current wound care tx of alginate, 4x4, and kerlix. We discussed with the pt that she can stand at home, with assistance, and if she utilizes her postop shoe; however, she cannot place any weight on the TMA site. We will have her follow up with us in 2w unless she needs to be seen sooner due to the new open skin area. If there are any questions or concerns, please do not hesitate to reach out to us. Orders: Orders US arterial duplex LE BI 1 Week I73.9 - Peripheral vascular disease, unspecified Coding Level of Care Code Est Pt Level 4 (81337) Diagnoses PAD (peripheral artery disease) I73.9 Comment wound care
[2024-08-07 13:22] VITALS: BMI 26.6
== END 2024-08-07 13:55 | disposition home or self-care (01) ==
PROVIDERS: Visit Provider Physician Assistant Surgical
DX: I73.9 Peripheral vascular disease, unspecified (principal)
CPT/HCPCS: 99214

== ENCOUNTER → 2024-08-07 13:06 | Outpatient (BNVA) | payer MEDICARE, MEDICAID, SELFPAY | PROVIDERS: Visit Provider Physician Assistant Surgical | DX: I73.9 Peripheral vascular disease, unspecified (principal) | CPT/HCPCS: 99212 ==

== ENCOUNTER 2024-08-27 10:37 | Outpatient (AMB) | payer MEDICARE, MEDICAID, SELFPAY ==
[2024-08-27 10:39] VITALS: BMI 26.6
--- NOTE | 2024-08-27 10:39 | A.OFFVIS_ITS ---
Vital Signs 08/27/24 10:39 Height 5 ft 5 in Weight 160 lb BMI 26.6 Intake Visit Reasons: 3 week wound check Intake Note: follow up Right TMA non-healing and new ankle superficial wound. Small Business Representative Required: No Accompanied by: Son Allergies penicillin V Allergy (Unknown, Verified 08/27/24 10:41) RSH,ITCHY HPI HPI 3 week wound check: Details: Belkys, a pleasant 73-year-old female patient [place] Creole speaking only patient, is presenting today with her son for ongoing wound care due to a nonhealing TMA. Her son has been providing wound care changes daily at home, the last time was yesterday. She denies any pain at the site. The medial wound that has been dressed with Xeroform, has now resolved. The most lateral aspect of the TMA site is healed as well. She has not been weight-bearing on that site. She does continue to wear the postop shoe. They have been continuing with alginate for dressing changes. There are no new concerns today. [facility] Medical History Essential hypertension Acute systolic CHF (congestive heart failure) PAD (peripheral artery disease) Hypertension Mood disorder Diabetes Surgical History History of transmetatarsal amputation of right foot (08/31/23) History of left below knee amputation History of femoral angiogram History of left below knee amputation Pacemaker Social History Household Members: Family and Children Housing: House Unable to assess alcohol history related to: Unknown Alcohol intake: current Alcohol intake frequency: holidays/special occasions only Patient Tobacco Use Status: Never used Tobacco service: No Current occupational status: retired Review of Systems Const Reports as per HPI and Denies weakness ENT Reports Normal hearing present and Denies dizziness Card Reports as per HPI, Denies chest pain, Denies chest pain at rest, Denies chest pain with activity, Denies dyspnea and Denies dyspnea on exertion Resp Reports as per HPI, Denies cough, Denies dyspnea and Denies dyspnea on exertion GI Reports as per HPI, Denies abdominal pain, Denies nausea and Denies vomiting Musc Denies numbness Skin/Breast Reports as per HPI, Denies erythema and Denies wounds Neuro Reports Normal hearing present, Denies dizziness, Denies numbness, Denies Sensory deficit (Neuro) and Denies weakness Psych Reports no additional complaints Endo Reports no additional complaints Physical Exam Vital Signs: BMI result Body Mass Index 26.6 Const General: healthy appearing and no acute distress Orientation/consciousness: patient oriented x3 HEENT Head: Yes normal to inspection Ears: hearing grossly normal bilaterally Mouth: Normal oral and palatal mucosa present Resp Effort & Inspection: normal respiratory effort and able to speak in complete sentences Auscultation: clear to auscultation bilaterally Cardio Jugular venous distension: no JVD Rate: regular rate Rhythm: regular rhythm Heart sounds: S1 normal heart sound present and S2 normal heart sound present Bruits: no abdominal aortic bruits, no carotid bruits, no femoral bruits and no renal bruits Peripheral pulses: Peripheral pulses 2+ throughout GI Inspection: Yes normal to inspection Palpation (GI): No Abdominal aortic bruit present Skin General skin exam: no rashes or lesions noted Wounds: no wounds Hair: normal Neuro General: patient oriented x3 Cranial nerves: Yes Normal hearing present Cognition (Neuro): normal cognition Gait exam (Neuro): Normal gait present Motor exam (neuro): 5/5 motor strength present throughout Sensory Exam: No Sensory deficit (Neuro) Extrem Other: Right TMA site: Not measured today. The lateral aspect of the site is completely healed and scabbed over. The wound bed is pink granulation tissue. There is some sloughing noted on the distal aspect of the wound, some was removed without difficulty. There was no bleeding noted today. Palpable DP pulse. Right medial ankle: Site healed, skin is healing over the site. There is no discharge or bleeding noted. General: Yes normal to inspection, Yes full ROM, Yes capillary refill normal and Yes normal gait Assessment & Plan Assessment & Plan (1) PAD (peripheral artery disease): Comment: 08/31/2023 - right transmetatarsal amputation Code(s): I73.9 - Peripheral vascular disease, unspecified Category: Medical Plan: Carolyne is presenting today as a follow up for wound care check/nonhealing right TMA site. The wound is getting smaller in the lateral aspect is scabbed over. The son continues with alginate dressing, 4x4s, and Kerlix wrap. The patient continues to be nonweightbearing on that foot and is wearing her postop shoe. The right medial ankle wound has healed completely as well. We will have the son continue with the current treatment plan of alginate, 4x4s, and Kerlix wrap. We discussed to lightly dampen the alginate if it is sticking to the wound bed. We discussed that there needs to be no dressing to the medial ankle wound. We will have her follow up with us in 2 weeks. If there are any questions or concerns, please do not hesitate to reach out to us. Coding Level of Care Code Est Pt Level 4 (48817) Diagnoses PAD (peripheral artery disease) I73.9
== END 2024-08-27 11:22 | disposition home or self-care (01) ==
PROVIDERS: Visit Provider Physician Assistant Surgical
DX: I73.9 Peripheral vascular disease, unspecified (principal)
CPT/HCPCS: 99214

== ENCOUNTER → 2024-08-27 10:37 | Outpatient (BNVA) | payer MEDICARE, MEDICAID, SELFPAY | PROVIDERS: Visit Provider Physician Assistant Surgical | DX: I73.9 Peripheral vascular disease, unspecified (principal); S91.301D Unspecified open wound, right foot, subsequent encounter; T87.89 Other complications of amputation stump; X58.XXXD Exposure to other specified factors, subsequent encounter; Z89.512 Acquired absence of left leg below knee; Z89.421 Acquired absence of other right toe(s) | CPT/HCPCS: 99212 ==

== ENCOUNTER 2024-08-29 13:18 | Outpatient (REF) | payer MEDICARE, MEDICAID, SELFPAY ==
--- NOTE | ~2024-08-29 | US_ITS ---
CLINICAL HISTORY: I73.9 - Peripheral vascular disease, unspecified Exam: Duplex ultrasound of the bilateral lower extremities with ankle-brachial index evaluation. Comparison: None. Findings: Duplex evaluation of the arterial system of the bilateral lower extremities was performed. This included real-time grayscale, color spectral Doppler analysis, and color Doppler flow imaging. Patient has undergone prior left [id number] amputation. Mixed areas of hard and soft plaque formation are seen throughout the arterial system of the bilateral lower extremities. No elevated velocities are identified within the left lower extremity arterial system. No occlusive phenomenon seen within the left leg. Elevated velocity of the right popliteal artery is seen up to 252 centimeters/second. No occlusive phenomenon. Right ankle-brachial index evaluation was performed. Right LACI: 0.65. Left LACI can not be performed due to prior left [id number] amputation. Impression: Flow-limiting stenosis within the right popliteal artery. Abnormal right ankle-brachial index evaluation indicative of severe peripheral artery disease. This document has been electronically signed by: Jayden Nuñez MD on 08/31/2024 06:56:49
== END 2024-08-29 13:19 | disposition home or self-care (01) ==
LOC: HO.US 13:18
PROVIDERS: Visit Provider Physician Assistant Surgical
DX: I73.9 Peripheral vascular disease, unspecified (principal)
CPT/HCPCS: 93922; 93925

== ENCOUNTER → 2024-08-29 13:22 | Outpatient (BNV) | payer MEDICARE, MEDICAID, SELFPAY | PROVIDERS: Visit Provider Radiology Diagnostic Radiology | DX: I73.9 Peripheral vascular disease, unspecified (principal) | CPT/HCPCS: 93922; 93925 ==

== ENCOUNTER 2024-09-10 11:15 | Outpatient (AMB) | payer MEDICARE, MEDICAID, SELFPAY ==
[2024-09-10 11:16] VITALS: BMI 26.6
--- NOTE | 2024-09-10 11:16 | A.OFFVIS_ITS ---
Vital Signs 09/10/24 11:16 Height 5 ft 5 in Weight 160 lb BMI 26.6 Intake Visit Reasons: 2 week wound check follow up Intake Note: 2 week follow up Right TMA non-healing amp, pt states about the same. Pt states she had some shortness of breath recently w/ some mumbling. Also following up on Arterial US 08/31/24 Accompanied by: Son Allergies penicillin V Allergy (Unknown, Verified 09/10/24 11:18) RSH,ITCHY HPI HPI 2 week wound check follow up: Details: Belkys is presenting today with her son for a 2w follow up for wound check. She is Citizen Of [place] Creole speaking, not [place] Creole. Her son is interpreting for us today. He continues to do dressing changes 3/week. He states there is concern for the ankle wound, which he states has opened up and has been weeping since yesterday. She also had her arterial duplex done on 08/27/24. She states she has not been weight bearing on her foot and mostly spends her days sitting. [facility] Medical History Essential hypertension Acute systolic CHF (congestive heart failure) PAD (peripheral artery disease) Hypertension Mood disorder Diabetes Surgical History History of transmetatarsal amputation of right foot (08/31/23) History of left below knee amputation History of femoral angiogram History of left below knee amputation Pacemaker Social History Household Members: Family and Children Housing: House Unable to assess alcohol history related to: Unknown Alcohol intake: current Alcohol intake frequency: holidays/special occasions only Patient Tobacco Use Status: Never used Tobacco service: No Current occupational status: retired Review of Systems Const Reports as per HPI and Denies weakness ENT Reports Normal hearing present and Denies dizziness Card Reports as per HPI, Denies chest pain, Denies chest pain at rest, Denies chest pain with activity, Denies dyspnea and Denies dyspnea on exertion Resp Reports as per HPI, Denies cough, Denies dyspnea and Denies dyspnea on exertion GI Reports as per HPI, Denies abdominal pain, Denies nausea and Denies vomiting Musc Denies numbness Skin/Breast Reports as per HPI, Denies erythema and Denies wounds Neuro Reports Normal hearing present, Denies dizziness, Denies numbness, Denies Sensory deficit (Neuro) and Denies weakness Psych Reports no additional complaints Endo Reports no additional complaints Physical Exam Vital Signs: BMI result Body Mass Index 26.6 Const General: healthy appearing and no acute distress Orientation/consciousness: patient oriented x3 HEENT Head: Yes normal to inspection Ears: hearing grossly normal bilaterally Mouth: Normal oral and palatal mucosa present Resp Effort & Inspection: normal respiratory effort and able to speak in complete sentences Auscultation: clear to auscultation bilaterally Cardio Jugular venous distension: no JVD Rate: regular rate Rhythm: regular rhythm Heart sounds: S1 normal heart sound present and S2 normal heart sound present Bruits: no abdominal aortic bruits, no carotid bruits, no femoral bruits and no renal bruits Peripheral pulses: Peripheral pulses 2+ throughout GI Inspection: Yes normal to inspection Palpation (GI): No Abdominal aortic bruit present Skin General skin exam: no rashes or lesions noted Wounds: no wounds Hair: normal Neuro General: patient oriented x3 Cranial nerves: Yes Normal hearing present Cognition (Neuro): normal cognition Gait exam (Neuro): Normal gait present Motor exam (neuro): 5/5 motor strength present throughout Sensory Exam: No Sensory deficit (Neuro) Extrem Other: Right TMA: Site is measuring 4.8x3.5x0.1cm. Yellow slough noted on the most lateral aspect of the wound, some removed with forceps and scissors. The wound bed remains pink/red granulation tissue. No bleeding noted. Palpable DP pulse. Right medial ankle: 0.5cm circumferential pink hard bubble noted with serous fluid drainage weeping out. Not painful to palpation. General: Yes normal to inspection, Yes full ROM, Yes capillary refill normal and Yes normal gait Results Reviewed Results Reviewed: Arterial Duplex: reviewed, increased velocities only at the right popliteal artery. No other insufficiency noted. Assessment & Plan Assessment & Plan (1) PAD (peripheral artery disease): Comment: 08/31/2023 - right transmetatarsal amputation Code(s): I73.9 - Peripheral vascular disease, unspecified Category: Medical Plan: Belkys is presenting today with her son for a 2w wound care check. She is also presenting for a follow up to arterial duplex, performed on 08/27/24. She continues to have dressing changes done by her sons every other day. The ankle wound started bubbling and weeping yesterday, the son was able to place some alginate on it and keep it covered. The duplex US revealed increased velocities at the right popliteal and decreased ABIs, but otherwise, in reviewing the images, looks good and should not impede the healing process. We will continue with alginate, 4x4, Kerlix dressing changes. We will have her do the same for the ankle dressing. We will have her come back in 2 weeks for a follow up. We will also put in a PT consult to assist her with non-weight bearing and being able to heel touch. I discussed with her the importance to not sit all of the time and to get up/ walk around. She does have a walker at home. If there are any questions or concerns, please do not hesitate to reach out to us. Orders: Orders PT Evaluation and Treatment Today I73.9 - Peripheral vascular disease, unspecified Coding Level of Care Code Est Pt Level 4 (81426) Diagnoses PAD (peripheral artery disease) I73.9 Comment Review of arterial duplex ultrasound, wound care
== END 2024-09-10 12:04 | disposition home or self-care (01) ==
PROVIDERS: Visit Provider Physician Assistant Surgical
DX: I73.9 Peripheral vascular disease, unspecified (principal)
CPT/HCPCS: 99214

== ENCOUNTER → 2024-09-10 11:15 | Outpatient (BNVA) | payer MEDICARE, MEDICAID, SELFPAY | PROVIDERS: Visit Provider Physician Assistant Surgical | DX: I73.9 Peripheral vascular disease, unspecified (principal); Z89.421 Acquired absence of other right toe(s) | CPT/HCPCS: 99212 ==

== ENCOUNTER 2024-10-02 14:49 | Inpatient (IN) | payer MEDICARE, MEDICAID, SELFPAY ==
--- NOTE | ~2024-10-02 | XR_ITS ---
CLINICAL HISTORY: edema 2 view chest x-ray Comparison: CR/SR - XR CHEST 1V - 08/30/23 19:04 EST Findings: Patchy right lower lobe density. Small right effusion. Trace left effusion. Cardiac and mediastinal contours are prominent, stable. No acute fracture. IMPRESSION: Possible right lower lobe infiltrate with associated small effusion. Mild interstitial edema. This document has been electronically signed by: Benja Chen MD on 10/02/2024 18:04:22
--- NOTE | ~2024-10-02 | US_ITS ---
EXAMINATION: US RETROPERITONEAL LIMITED (RIGHT RENAL ONLY) CLINICAL INFORMATION: Hypertension. Evaluate for renal artery stenosis. COMPARISON: None available. TECHNIQUE: Ultrasound along with color Doppler imaging and spectral analysis was performed of the right kidney only. FINDINGS: RIGHT KIDNEY: 9.2 x 4.5 x 5.6 cm (SAG x AP x TRV). The kidney is normal in size, contour, and echogenicity. Renal cortical thickness is normal. No calculi or suspicious focal parenchymal lesions. No hydronephrosis. There is a mid pole simple cyst measuring 1.3 x 1.0 x 1.2 cm. Spectral Doppler analysis: *Please note, essentially nondiagnostic Doppler exam as the patient was unable to understand instructions or hold breath for the Doppler exam. Ordering provider is aware. Right Kidney: Extremely Limited information: -Upper pole interlobar artery resistive index of 0.7. -Midpole interlobar artery resistive index of 0.7. US/US renal BI IMPRESSION: 1. Very Limited Doppler exam, essentially nondiagnostic. Patient was unable to understand instructions or hold her breath. We will repeat the examination per the ordering provider, who is aware. 2. Right kidney is normal in appearance sonographically aside from a simple midpole cyst measuring 1.3 cm. Electronically signed by: Elder Walls MD 10/04/2024 09:51 AM NESSA
--- NOTE | ~2024-10-02 | US_ITS ---
EXAMINATION: US RETROPERITONEAL LIMITED (RIGHT RENAL ONLY) CLINICAL INFORMATION: Hypertension. Evaluate for renal artery stenosis. COMPARISON: None available. TECHNIQUE: Ultrasound along with color Doppler imaging and spectral analysis was performed of the right kidney only. FINDINGS: RIGHT KIDNEY: 9.2 x 4.5 x 5.6 cm (SAG x AP x TRV). The kidney is normal in size, contour, and echogenicity. Renal cortical thickness is normal. No calculi or suspicious focal parenchymal lesions. No hydronephrosis. There is a mid pole simple cyst measuring 1.3 x 1.0 x 1.2 cm. Spectral Doppler analysis: *Please note, essentially nondiagnostic Doppler exam as the patient was unable to understand instructions or hold breath for the Doppler exam. Ordering provider is aware. Right Kidney: Extremely Limited information: -Upper pole interlobar artery resistive index of 0.7. -Midpole interlobar artery resistive index of 0.7. US/US renal doppler IMPRESSION: 1. Very Limited Doppler exam, essentially nondiagnostic. Patient was unable to understand instructions or hold her breath. We will repeat the examination per the ordering provider, who is aware. 2. Right kidney is normal in appearance sonographically aside from a simple midpole cyst measuring 1.3 cm. Electronically signed by: Elder Walls MD 10/04/2024 09:51 AM NESSA
[2024-10-02 14:54] VITALS: BP 170/67; PULSE 61; RESP 20; TEMP 36.4; O2SAT 97; BMI 27.5
--- NOTE | 2024-10-02 14:56 | ED_ITS ---
HPI - General Adult General Chief complaint: Dyspnea Stated complaint: Facial Swelling Kidney Failure Diff Breathing Time Seen by Provider: 10/02/24 22:54 Source: patient and family Mode of arrival: ambulatory Limitations: no limitations History of Present Illness ED Provider: HPI narrative: Patient is 73 years old with history of diabetes hypertension peripheral artery disease status post left BKA and right metatarsal amputation with CKD stage IV comes here as for last few days patient has been noticed increased shortness of breath which is getting worse even while doing mind minimal activities also noticed overall swelling of the body with abdominal distention and facial swelling patient was apparently admitted to [facility] last week stayed there for 3 days for similar presentation but not discharged on any diuretics Related Data Home Medications ?Medication ?Instructions ?Recorded ?Confirmed aspirin 81 mg chewable tablet 81 mg PO DAILY 10/22/22 08/24/23 multivitamin 1 tab PO DAILY 08/24/23 08/24/23 acetaminophen 325 mg capsule 650 mg PO Q6H PRN 10/11/23 carvedilol 6.25 mg tablet 6.25 mg PO BID 10/11/23 enoxaparin 30 mg/0.3 mL 30 mg subcut DAILY 10/11/23 subcutaneous syringe (Lovenox) ferrous gluconate 324 mg (38 mg 324 mg PO DAILY 10/11/23 iron) tablet hydralazine 25 mg tablet 75 mg PO BID 10/11/23 magnesium hydroxide 400 mg/5 mL 5 ml PO DAILY PRN 10/11/23 oral suspension (Milk of Magnesia) atorvastatin 20 mg tablet 20 mg PO DAILY 11/23/23 insulin glargine-yfgn 100 unit/mL unit subcut 11/23/23 subcutaneous solution silver sulfadiazine 1 % topical appl topical 11/23/23 cream isosorbide mononitrate 120 mg 120 mg PO DAILY 06/25/24 tablet,extended release 24 hr Previous Rx's ?Medication ?Instructions ?Recorded clopidogrel 75 mg tablet 75 mg PO DAILY #30 tabs 09/05/23 docusate sodium 100 mg capsule 100 mg PO BEDTIME #30 caps 09/05/23 famotidine 20 mg tablet 20 mg PO DAILY #30 tabs 09/05/23 ferrous sulfate 300 mg (60 mg 300 mg (5 mL) PO TIDWM #30 mL 09/05/23 iron)/5 mL oral liquid insulin glargine 100 unit/mL 20 unit (0.2 mL) subcut BEDTIME 09/05/23 subcutaneous solution (Lantus #10 mL U-100 Insulin) insulin lispro 100 unit/mL See Protocol subcut QIDACHS #10 mL 09/05/23 subcutaneous solution (Admelog U-100 Insulin lispro) ipratropium 0.5 mg-albuterol 3 mg 3 ml inhalation Q3H PRN sob #90 mL 09/05/23 (2.5 mg base)/3 mL nebulization soln isosorbide mononitrate 60 mg 60 mg PO DAILY #60 tabs 09/05/23 tablet,extended release 24 hr melatonin 3 mg tablet 6 mg (2 x 3 mg) PO BEDTIME PRN 09/05/23 Insomnia #30 tabs polyethylene glycol 3350 17 gram 17 g PO DAILY #30 ea 09/05/23 oral powder packet Allergies Allergy/AdvReac Type Severity Reaction Status Date / Time penicillin V Allergy Unknown RSH,ITCHY Verified 10/02/24 14:58 Review of Systems 2 Review of Systems: Yes all other systems are reviewed and are negative [facility] Past Medical History Medical History Acute systolic CHF (congestive heart failure) Essential hypertension PAD (peripheral artery disease) Hypertension Mood disorder Diabetes Surgical History History of transmetatarsal amputation of right foot (08/31/23) History of left below knee amputation History of femoral angiogram History of left below knee amputation Pacemaker Social History Social History Household Members: Family and Children Housing: House Unable to assess alcohol history related to: Unknown Alcohol intake: current Alcohol intake frequency: holidays/special occasions only Patient Tobacco Use Status: Never used Tobacco Advance Directives: No Advance Directives Information Provided: Yes Do you have a plan to hurt others: No Plan service: No Current occupational status: retired Physical Exam ED Vital Signs: Vital Signs - 24 hr 10/02/24 14:54 10/02/24 22:48 Temperature 97.5 F 97.7 F Pulse Rate 61 64 Respiratory Rate 20 16 Blood Pressure 170/67 H 181/73 H Pulse Oximetry 97 98 Oxygen Delivery Method Room Air Room Air BMI result Body Mass Index 27.5 Appearance: Alert. Oriented X3. No acute distress. Eyes: Mild pallor ENT: Pharynx normal. Oral Mucosa moist facial puffiness Neck: Normal inspection. Neck supple. CVS: Normal heart rate and rhythm. Pulses normal. Respiratory: No respiratory distress. Equal air entry bilateral, prolonged expiration with few rales at the bases Abdomen: Soft distended FF + and nontender. Bowel sounds are present, no mass palpable, no CVA tenderness Skin: Skin warm and dry. Normal skin color. Normal skin turgor. Extremities: trace R lower extremity edema. No calf tenderness left BKA right metatarsal amputation Neuro: Oriented X 3. No motor deficit. Course Course Course Narrative: This is a Rapid Medical Exam performed in triage by Ivis Mars PA-C. Full HPI, ROS and PE to be performed by primary ED provider. 73 yo F with a past medical history CKD, CHF, PAD, presenting to the ED c/o SOB and facial swelling x few days. Admits was recently admitted to [facility] and had medication change, was started on pantoprazole.. Reports sore throat/tightness. PE: Lungs CTA. Uvula midline. Nontoxic appearing. Plan: EKG, labs, CXR, viral testing Medications Administered Discontinued Medications Generic Name Dose Route Start Last Admin Trade Name Freq PRN Reason Stop Dose Admin Furosemide 40 mg 10/02/24 23:34 10/03/24 01:24 Furosemide 40 Mg/4 Ml Vial IVPUSH 10/02/24 23:35 40 mg ONCE ONE Administration Protocol Hydralazine HCl 20 mg 10/03/24 01:28 10/03/24 02:09 Hydralazine Hcl 20 Mg/Ml Vial IVPUSH 10/03/24 01:29 20 mg ONCE ONE Administration Protocol Medical Decision Making Medical Decision Making [facility] Narrative: Patient with CKD with fluid overload the exertional dyspnea not on diuretics will admit patient for IV diuresis patient has had transient hypoglycemia secondary to poor oral intake which improved after eating food while waiting to be seen case discussed with Nephrology Dr. Dejesus advised IV diuresis and admission Differential Diagnosis Differential Diagnoses: The differential diagnosis associated with the presentation includes Admission/Observation Consideration of admission/observation: Escalation of care including admission/observation considered Consult Healthcare Provider Management of the patient was discussed with: Hospitalist Lab Data MDM Lab Attestation statement: I reviewed the patient's lab results. 10/02/24 15:18 10/02/24 15:18 Labs: Lab Results 10/02/24 10/02/24 10/02/24 Range/Units 15:18 17:12 18:06 WBC 5.8 (4.8-10.8) X10*3/uL RBC 3.58 L (4.20-5.50) X10*6/uL Hgb 9.4 L (12.0-16.0) g/dl Hct 29.2 L (37.0-47.0) % MCV 81.6 (80.0-98.0) fL MCH 26.3 L (27.0-33.0) pg MCHC 32.2 (31.0-35.0) g/dl RDW 17.1 H (11.0-16.0) % Plt Count 314 (160-400) X10*3/uL MPV 9.4 (9.4-12.3) fL Immature Gran % (Auto) 0.3 (0.0-0.4) % Neut % (Auto) 73.4 H (45-73) % Lymph % (Auto) 12.1 L (20-40) % Menard % (Auto) 13.1 H (2-11) % Eos % (Auto) 0.9 (0-4) % Baso % (Auto) 0.2 (0-2) % Lymph # (Auto) 0.7 L (1.2-4.9) X10*3/uL Menard # (Auto) 0.8 (0.1-1.2) X10*3/uL Eos # (Auto) 0.1 (0.0-0.4) X10*3/uL Baso # (Auto) 0.0 (0.0-0.2) X10*3/uL Abs Immat Gran (auto) 0.02 (0.00-0.03) X10*3/uL Absolute Neuts (auto) 4.3 (2.0-8.3) x10*3/uL Absolute Nucleated RBC 0.000 (0.0-0.012) X10*3/uL Nucleated RBC % (auto) 0.0 (0.0-0.2) /100WBC PT 12.9 H (10.9-12.4) SEC INR 1.1 (0.9-1.1) Sodium 131 L (135-145) mmol/L Potassium 4.8 (3.3-5.1) mmol/L Chloride 105 (96-108) mmol/L Carbon Dioxide 20 L (22-29) mmol/L Anion Gap 11 L (12-20) BUN 62 H (9-16) mg/dL Creatinine 2.46 H (0.5-1.4) mg/dL Estim Creat Clear Calc 19.8 Estimated GFR 19 POC Glucose 70 96 (60-115) mg/dL Random Glucose 40 L* (60-115) mg/dL Calcium 8.7 D (8.4-10.2) mg/dL Magnesium 2.1 (1.6-2.6) mg/dL Total Bilirubin 0.2 (0.0-1.0) mg/dL Direct Bilirubin < 0.2 (0.0-0.5) mg/dL AST 24 (5-31) U/L ALT 26 (0-31) U/L Alkaline Phosphatase 84 (39-117) U/L Troponin I High Sens 6.4 (<3.5-17.0) ng/L B-Natriuretic Peptide 524 H (<100) pg/mL Total Protein 8.3 H (6.5-8.0) g/dL Albumin 3.3 L (3.5-5.0) g/dL Influenza Type A (PCR) NEGATIVE (Negative) Influenza Type B (PCR) NEGATIVE (Negative) RSV RNA Qual (PCR) NEGATIVE (Negative) SARS-CoV-2 RNA (RT-PCR) NEGATIVE (Negative) Independent Interpretation I performed an independent interpretation of an: EKG and Plain X-Ray Interpretation: Paced rhythm heart rate 60 beats per minute normal interval normal axis no acute ST-T no acute ischemia Radiology Impression Discussion of test interpretation with radiology: I have reviewed the radiologist's reading. Radiologist Impression: [address] [address] XRay Report Signed Patient: Belkys Florian MR#: [id number] : 1950 Acct:[id number] Age/Sex: 73 / F ADM Date: 10/02/24 Loc: HO.ED Attending Dr: Ordering Physician: Ivis Mars Date of Service: 10/02/24 Procedure(s): XR chest 2V Accession Number(s): [id number] cc: Afua Leblanc; Ivis Mars~ CLINICAL HISTORY: edema 2 view chest x-ray Comparison: CR/SR - XR CHEST 1V - 08/30/23 19:04 EST Findings: Patchy right lower lobe density. Small right effusion. Trace left effusion. Cardiac and mediastinal contours are prominent, stable. No acute fracture. IMPRESSION: Possible right lower lobe infiltrate with associated small effusion. Mild interstitial edema. This document has been electronically signed by: Benja Chen MD on 10/02/2024 18:04:22 Discharge Plan Discharge Clinical Impression: Congestive heart failure, CKD (chronic kidney disease) stage 4, GFR 15-29 ml/min Patient Disposition: Admitted As Inpatient
--- NOTE | 2024-10-02 15:01 | ECG_ITS ---
Test Reason : sob Blood Pressure : */* mmHG Vent. Rate : 60 BPM Atrial Rate : 60 BPM P-R Int : 176 ms QRS Dur : 186 ms QT Int : 484 ms P-R-T Axes : 35 48 231 degrees QTcB Int : 484 ms AV dual-paced rhythm Abnormal ECG When compared with ECG of 24-Aug-2023 16:52, Vent. rate has decreased by 11 bpm Referred By: Ivis Mars Electronically Signed By: VELASQUEZ LÓPEZ MD
[2024-10-02 15:23] LABS: MANUAL DIFF FLAG NO
[2024-10-02 15:24] LABS: Basophils Percent Auto 0.2 % (0-2); Eosinophils Absolute Auto 0.1 X10*3/uL (0.0-0.4); Eosinophils Percent Auto 0.9 % (0-4); Hematocrit 29.2 % (37.0-47.0); Hemoglobin 9.4 g/dl (12.0-16.0); Imm Gran Abs Auto 0.02 X10*3/uL (0.00-0.03); Imm Gran Pct Auto 0.3 % (0.0-0.4); Lymphocytes Absolute Auto 0.7 X10*3/uL (1.2-4.9); Lymphocytes Percent Auto 12.1 % (20-40); Mean Corpuscular HGB Conc 32.2 g/dl (31.0-35.0); Mean Corpuscular Hemoglobin 26.3 pg (27.0-33.0); Mean Corpuscular Volume 81.6 fL (80.0-98.0); Mean Platelet Volume 9.4 fL (9.4-12.3); Monocytes Absolute Auto 0.8 X10*3/uL (0.1-1.2); Monocytes Percent Auto 13.1 % (2-11); Neutrophils Absolute Auto 4.3 x10*3/uL (2.0-8.3); Neutrophils Percent Auto 73.4 % (45-73); Platelet Count 314 X10*3/uL (160-400); Red Blood Count 3.58 X10*6/uL (4.20-5.50); Red Cell Distribution Width 17.1 % (11.0-16.0); White Blood Count 5.8 X10*3/uL (4.8-10.8)
[2024-10-02 15:30] LABS: INTERNATIONAL NORM RATIO 1.1 (0.9-1.1); Prothrombin Time 12.9 SEC (10.9-12.4)
[2024-10-02 15:46] LABS: Troponin-I High Sensitivity 6.4 ng/L (<3.5-17.0)
[2024-10-02 15:47] LABS: B Type Natriuretic Peptide 524 pg/mL (<100)
[2024-10-02 15:50] LABS: Alanine Aminotransferase 26 U/L (0-31); Albumin Level 3.3 g/dL (3.5-5.0); Alkaline Phosphatase 84 U/L (39-117); Anion Gap 11 (12-20); Aspartate Amino Transferase 24 U/L (5-31); Bilirubin Direct < 0.2 mg/dL (0.0-0.5); Bilirubin Total 0.2 mg/dL (0.0-1.0); Blood Urea Nitrogen 62 mg/dL (9-16); Calcium 8.7 mg/dL (8.4-10.2); Carbon Dioxide 20 mmol/L (22-29); Chloride 105 mmol/L (96-108); Creatinine Clr Calc Pharmacy 19.8; Estimated Glomerular Filt Rate 19; Glucose Random 40 mg/dL (60-115); Magnesium 2.1 mg/dL (1.6-2.6); Potassium 4.8 mmol/L (3.3-5.1); Sodium 131 mmol/L (135-145); Total Protein 8.3 g/dL (6.5-8.0)
[2024-10-02 16:06] LABS: Influenza A PCR NEGATIVE (Negative); Influenza B PCR NEGATIVE (Negative); Resp Syncy Virus RNA Qual PCR NEGATIVE (Negative); SARS COV2 PCR INHOUSE NEGATIVE (Negative)
--- OUTSIDE RECORDS SUMMARY | 2024-10-02 16:14 | XMS_ITS | Clinical Summary ---
Author Organization [facility] Address [address] [place] [address] Care Team Providers Care Talent Acquisition Relationship Manager Name Role Phone ManiUna SAURABH Primary Care Provider [phone] Allergies Active Allergy Reactions Criticality Noted Date Comments Penicillins Unknown/Patient and Family Unable to Define Medium 11/18/2021 Medications No known medications Social History Tobacco Use Types Packs/Day Years Used Date Smoking Tobacco: Never Assessed Sex and Gender Information Value Date Recorded Sex Assigned at Not on file Gender Identity Not on file Sexual Orientation Not on file Last Filed Vital Signs Vital Sign Reading Time Taken Comments Blood Pressure 142/76 11/19/2021 8:10 AM EDT Pulse 77 11/19/2021 8:10 AM EDT Temperature 35.9 ??C (96.7 ??F) 11/19/2021 8:10 AM ED T Respiratory Rate 18 11/19/2021 8:10 AM EDT Oxygen Saturation 98% 11/19/2021 8:10 AM EDT Inhaled Oxygen Concentration - - Weight - - Height - - Body Mass Index - - Plan of Treatment Health Maintenance Due Date Last Done Comments Hepatitis C Virus Screening 1950 DTaP/Tdap/Td Vaccines (1 - Tdap) 1969 Mammogram 1990 Colonoscopy 12/03/1995 Pneumococcal Vaccines 50+ (1 of 1 - PCV) 2000 Zoster (Shingles) Vaccine (1 of 2) 2000 RSV Vaccine 60 years and older and Patients (1 - Risk 60-74 years 1-dose series) 2010 DXA Bone Density (Females,Ages 65 and older) 12/03/2015 Influenza Vaccine 03/21/2024 06/08/2020, , 07/18/2017, Additional history exists COVID-19 Vaccine ( season) 2024 Hemoglobin A1C Discontinued 06/11/2021, 09/21, 06/08/2020, Additional history exists Hepatitis B Vaccines Aged Out No long er eligible based on patient's age to complete this topic Care Teams Talent Acquisition Relationship Manager Relationship Specialty Start Date End Date Una Singleton NP [address] [place] [address] [address] [place] [address] PCP - General Adult Health - PA/APNP/STRAW HAT BRUSHER/SPINNING OPERATOR 11/18/21
--- OUTSIDE RECORDS SUMMARY | 2024-10-02 16:14 | XMS_ITS ---
Author Organization [place] [employer] Address Unknown Allergies, Adverse Reactions, Alerts Substance Reaction Status Noted Date Resolved Date Penicillin active 09/05/2023 Medications Medication Dose Frequency Directions Start Date End Raj e Carvedilol Oral Tablet 6.25 MG 1 {tbl} 12 h Give 1 tablet by silvana th two times a day for high blood pressure 09/06/2023 Aspirin 81 Oral Tablet Chewable 81 mg 24 h Give 81 mg by mouth one time a day for blood clot prevention 09/06/2023 Ipratropium-Albuterol Inhalation Solution 0.5-2.5 (3) MG/3ML 3 mL 3 ml inhale orally e very 3 hours as needed for SOB 09/05/2023 Famotidine Oral Tablet 20 MG 1 {tbl} 24 h Give 1 tablet by silvana th one time a day for GERD 09/06/2023 Polyethylene Glycol 3350 Powder 17 Give 17 gram orally in the morning for constipation 09/06/2023 Melatonin Oral Tablet 3 MG 2 {tbl} Give 2 tablet by silvana th at bedtime for insomnia 09/06/2023 Docusate Sodium Oral Tablet 100 MG 1 {tbl} Give 1 tablet by silvana th at bedtime for constipation 09/06/2023 Clopidogrel Bisulfate Oral Tablet 75 MG 75 mg 24 h Give 75 mg by mouth one time a day for blood clot prevention 09/06/2023 Ferrous Gluconate Oral Tablet 1 {tbl} 24 h Give 1 tablet by silvana th one time a day for supplement 09/12/2023 Milk of Magnesia Suspension 400 MG/5ML 30 mL Give 30 ml by mout h as needed for Constipation (Step 1) As needed if no bowel movement for three days. (Do not use for Hemodialysis patients). 10/04/2023 Acetaminophen Tablet 325 MG 2 {tbl} Give 2 tablet by silvana th every 6 hours as needed for Pain Pain Total dosage for acetaminophen and medications that contain acetaminophen should not exceed 3 grams / 24 hours. 10/04/2023 Acetaminophen Tablet 325 MG 2 {tbl} Give 2 tablet by silvana every 6 hours as needed for Fever greater than 100.0F Total dosage for acetaminophen and medications that contain acetaminophen should not exceed 3 grams / 24 hours. 10/04/2023 Bisacodyl Suppository 10 MG 1 Insert 1 suppository rectally as needed for If no bowel movement for 8 hours after Milk of Magnesia 10/04/2023 hydrALAZINE HCl Oral Tablet 25 MG 3 {tbl} 12 h Give 3 tablet by silvana two times a day for Blood pressure Take 3 tablets of 25mg to total of 75mg. 10/06/2023 Lantus Subcutaneous Solution 100 UNIT/ML 25 Inject 25 unit subcutaneously at bedtime for diabetes 10/14/2023 Silvadene External Cream 1 % Apply to right amp s ite topically every day shift for wound care 11/08/2023 Insulin Lispro-aabc Injection Solution 100 UNIT/ML Inject as per sl[place]oleon g scale: if 111 - 150 = 0; 151 - 200 = 2; 201 - 250 = 4; 251 - 300 = 6; 301 - 350 = 8; 351 - 400 = 10 IF GREATER THAN 400 CALL MD, subcutaneously before meals for Diabetes 11/15/2023 Atorvastatin Calcium Oral Tablet 20 MG 20 mg Give 20 mg by mouth at bedtime for elevated lipids related to HYPERLIPIDEMIA, UNSPECIFIED (E78.5) 11/22/2023 Centrum Silver 50+Women Oral Tablet 1 {tbl} 24 h Give 1 tablet by [facility] one time a day related to HYPO-OSMOLALITY AND HYPONATREMIA (E87.1) use Residents own supply 12/16/2023 Isosorbide Mononitrate ER Oral Tablet Extended Release 24 Hour 120 MG 120 mg 24 h Give 120 mg by [facility] one time a day for HTN 01/11/2024 Medications Administered Medication Dose Frequency Status Start Date End Date Carvedilol Oral Tablet 6.25 MG 1 {tbl} 12 h 01/16/2024 Aspirin 81 Oral Tablet Chewable 81 mg 24 h 01/16/2024 Ipratropium-Albuterol Inhalation Solution 0.5-2.5 (3) MG/3ML 3 mL 09/05/2023 Famotidine Oral Tablet 20 MG 1 {tbl} 24 h 01/16/2024 Polyethylene Glycol 3350 Powder 17 01/16/2024 Melatonin Oral Tablet 3 MG 2 {tbl} Docusate Sodium Oral Tablet 100 MG 1 {tbl} 01/15/2024 Clopidogrel Bisulfate Oral Tablet 75 MG 75 mg 24 h 01/16/2024 Ferrous Gluconate Oral Tablet 1 {tbl} 24 h 01/16/2024 Milk of Magnesia Suspension 400 MG/5ML 30 mL 10/04/2023 Acetaminophen Tablet 325 MG 2 {tbl} Acetaminophen Tablet 325 MG 2 {tbl} Bisacodyl Suppository 10 MG 1 hydrALAZINE HCl Oral Tablet 25 MG 3 {tbl} 12 h Absent from home with meds 01/16/2024 Lantus Subcutaneous Solution 100 UNIT/ML 01/15/2024 Silvadene External Cream 1 % 01/16/2024 Insulin Lispro-aabc Injection Solution 100 UNIT/ML Absent from home with meds 01/16/2024 Atorvastatin Calcium Oral Tablet 20 MG 20 mg 01/15/2024 Centrum Silver 50+Women Oral Tablet 1 {tbl} 24 h 01/16/2024 Isosorbide Mononitrate ER Oral Tablet Extended Release 24 Hour 120 MG 120 mg 24 h 01/16/2024 Problems Problem Status Start Date End Date PARTIAL TRAUMATIC AMPUTATION OF RIGHT FOOT, LEVEL UNSPECIFIED, SUBSEQUENT ENCOUNTER (Primary) (S98.921D - ICD-10-CM) ACTIVE 09/05/2023 ACQUIRED ABSENCE OF LEFT LEG BELOW KNEE (Z89.512 - ICD-10-CM) ACTIVE 03/21/2020 COMPLETE TRAUMATIC AMPUTATIO N AT LEVEL BETWEEN KNEE AND ANKLE, LEFT LOWER LEG, SUBSEQUENT ENCOUNTER (S88.112D - ICD-10-CM) ACTIVE 03/21/2020 UNSPECIFIED LACK OF COORDINATION (R27.9 - ICD-10-CM) A CTIVE 09/06/2023 WEAKNESS (R53.1 - ICD-10-CM) ACTIVE 03/21/2020 OTHER FATIGUE (R53.83 - ICD-10-CM) ACTIVE 2023 ESSENTIAL (PRIMARY) HYPERTENSION (I10 - ICD-10-CM) ACT JUAN DAVID 03/21/2020 HYPO-OSMOLALITY AND HYPONATREMIA (E87.1 - ICD-10-CM) A CTIVE 09/05/2023 ENCOUNTER FOR ORTHOPEDIC AFT ERCARE FOLLOWING SURGICAL AMPUTATION (Z47.81 - ICD-10-CM) ACTIVE 09/05/2023 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, UNSPECIFIED (F06.30 - ICD-10-CM) ACTIVE 09/05/2023 NON-PRESSURE CHRONIC ULCER O F OTHER PART OF RIGHT FOOT WITH UNSPECIFIED SEVERITY (L97.519 - ICD-10-CM) ACTIVE 09/05/2023 CHRONIC 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 (I70.92 - ICD-10-CM) ACTIVE 09/05/2023 ACQUIRED ABSENCE OF RIGHT FOOT (Z89.431 - ICD-10-CM) A CTIVE 09/05/2023 ELEVATION OF LEVELS OF LIVER TRANSAMINASE LEVELS (R74.01 - ICD-10-CM) ACTIVE 09/05/2023 RETIREMENT (CURRENT) USE OF ASPIRIN (Z79.82 - ICD-10-CM ) ACTIVE 09/05/2023 RETIREMENT (CURRENT) USE OF A NTITHROMBOTICS/ANTIPLATELETS (Z79.02 - ICD-10-CM) ACTIVE 09/05/2023 TYPE 2 DIABETES MELLITUS WIT H UNSPECIFIED COMPLICATIONS (E11.8 - ICD-10-CM) ACTIVE 09/05/2023 SEPSIS, UNSPECIFIED ORGANISM (A41.9 - ICD-10-CM) ACTIV E 09/05/2023 CHRONIC KIDNEY DISEASE, STAGE 3B (N18.32 - ICD-10-CM) ACTIVE 09/05/2023 ANEMIA, UNSPECIFIED (D64.9 - ICD-10-CM) ACTIVE 0 03/21/2020 HYPERLIPIDEMIA, UNSPECIFIED (E78.5 - ICD-10-CM) ACTIVE 03/21/2020 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 (Z79.4 - ICD-10-CM) ACTIVE 03/21/2020 TYPE 2 DIABETES MELLITUS WIT H HYPERGLYCEMIA (E11.65 - ICD-10-CM) ACTIVE 03/21/2020 PERIPHERAL VASCULAR DISEASE, UNSPECIFIED (I73.9 - ICD-10-CM) ACTIVE 03/21/2020 TYPE 2 DIABETES MELLITUS WIT HOUT COMPLICATIONS (E11.9 - ICD-10-CM) ACTIVE 03/21/2020 OTHER ABNORMALITIES OF GAIT AND MOBILITY (R26.89 - ICD-10-CM) ACTIVE 03/21/2020 TYPE 2 DIABETES MELLITUS WIT H DIABETIC PERIPHERAL ANGIOPATHY WITHOUT GANGRENE (E11.51 - ICD-10-CM) ACTIVE 03/21/2020 Encounters Encounter Performer Performer Role Encounter Diagnoses Location Date Leave - [facility] 0 05:21 pm EDT - 0 08:07 pm EDT Discharge - Discharged to home or self care - HOME - Home [facility] 0 03:06 am EDT - 0 02:30 pm EDT Discharge - Discharged to home or self care - HOME - Home [facility] 4 01:46 pm EST - 4 04:20 pm EDT Immunizations Vaccine Date PCV 13 07/18/2017 12:00 am EST PPSV23 08/01/2018 12:00 am EST Influenza vaccine [id number] 09/28/2022 1 2:00 am EST Covid-19 [id number] Influenza, high dose seasonal Social History
--- OUTSIDE RECORDS SUMMARY | 2024-10-02 16:14 | XMS_ITS | Clinical Summary ---
Author Organization [facility], Address [address] [place] [address] Phone Care Team Providers Care Jewel Inserter Name Role Phone Una Telles NP Primary Care Provider Unavailab le Allergies Active Allergy Reactions Criticality Noted Date Comments Penicillins Rash,Other (see comments) Medium 2 Medications amLODIPine (NORVASC) 5 MG tablet Take 5 mg by mouth 1 (one) time each day Active aspirin 81 MG chewable tablet Chew 81 mg 1 (one) time each day Active atorvastatin (LIPITOR) 40 MG tablet Take 40 mg by mouth 1 (one) time each day Active clopidogrel (PLAVIX) 75 MG tablet Take 75 mg by mouth 1 (one) time each day Active Insulin Aspart (NOVOLOG FLEXPEN SC) Inject under the skin Active insulin degludec (Tresiba FlexTouch) 200 UNIT/ML injection Inject under the skin every night Active Multiple Vitamin (multivitamin) capsule Take 1 capsule by mouth 1 (one) time each day Active traZODone (DESYREL) 50 MG tablet Take 50 mg by mouth every night Active lisinopril 20 MG tablet Take 1 tablet (20 mg total) by mouth 1 (one) time each day 30 tablet 11 02/10/2022 Active Active Problems Problem Noted Date Diagnosed Date Renal disorder due to type 2 diabetes mellitus 0 11/04/2021 Stage 3b chronic kidney disease 11/04/2021 Acute nontraumatic kidney injury 10/27/2021 Proteinuria 10/27/2021 Hyperkalemia 09/20/2021 Overview (11/03/2021): Last Assessment & Plan: I asked her to stop drinking the banana smoothies daily. We will recheck potassium. Anemia 07/18/2017 Overview (11/03/2021): Last Assessment & Plan: Resolved. Possibly due to chronic kidney disease. We will monitor. Hyperlipidemia 07/18/2017 Overview (11/03/2021): Last Assessment & Plan: continue statin Essential hypertension 07/18/2017 Overview (11/03/2021): Last Assessment & Plan: stable Type 2 diabetes mellitus 07/18/2017 Overview (02/09/2022): DM w nephropathy, neuropathy & retinopathy. Very poorly controlled due to med & dietary noncompliance Last Assessment & Plan: I am concerned she has developed diabetic gastroparesis. I have referred her to endocrine again & to GI. Urged compliance w insulin & ADA diet. Last Assessment & Plan: Advised them to reschedule appt w ophthalmology and book appt w [facility] or [facility] endocrinology DM w nephropathy, neuropathy & retinopathy. Very poorly controlled due to med & dietary noncompliance Last Assessment & Plan: Increase tresiba to 60 units nightly, novolog to 20 units TID 1 month FU for DM Immunizations Name Administration Dates Next Due Influenza Split High Dose Pr eservative Free IM 06/08/2020,05/30/2018,07/18/2017,05/26 Influenza TIV (IM) 05/21/2016 Pneumococcal Conjugate 13-Valent 07/18/2017 Pneumococcal Polysaccharide 08/01/2018 Tdap 09/03/2015 Social History Tobacco Use Types Packs/Day Years Used Date Smoking Tobacco: Never Alcohol Use Standard Drinks/Week Comments Yes 0 (1 standard drink = 0.6 oz pur e alcohol) Social Comments Unknown Sex and Gender Information Value Date Recorded Sex Assigned at Not on file Legal Sex Female 4:30 PM EST Gender Identity Not on file Sexual Orientation Not on file Plan of Treatment Health Maintenance Due Date Last Done Comments Breast Cancer Screening 1950 Colorectal Cancer Screening: Annual FOBT 12/03/1999 Colorectal Cancer Screening: Colonoscopy 12/03/1999 Colorectal Cancer Screening: Sigmoidoscopy 12/03/1999 Diabetes: Ophthalmology Exam 11/11/2019 Diabetes: Pedal Pulse Checked 11/11/2019 Diabetes: Sensory Foot Exam 11/11/2019 Diabetes: Visual Foot Exam 11/11/2019 Diabetes: Hemoglobin A1C 04/28/2022 01/26/2022 Influenza Vaccine (#1) 2024 0, 05/30/2018, 07/18/2017, Additional history exists Pneumococcal Vaccine: 65+ Years Completed 08/01/2018, 07/18/2017 Hepatitis B Vaccine Aged Out No longe r eligible based on patient's age to complete this topic Procedures Procedure Name Priority Date/Time Associated Diagnosis Comments HEMOGLOBIN A1C Routine 01/26/2022 8:21 AM EDT Renal disorder due to type 2 diabetes mellitus <Other diabetic kidney complication> (HCC) from Last 3 Months or Most Recently Relevant to Health Maintenance Results * Hemoglobin A1c (01/26/2022 8:21 AM EDT) Blood (Blood, Venous) us Jai Jones MD LAB BLOOD ORDERABLES Final Resul t PRINT/EXTERNAL (NON-INTERFACED LABS) from Last 3 Months or Most Recently Relevant to Health Maintenance Insurance [place]ICA[place] MEDICARE Care Teams Jewel Inserter Relationship Specialty Start Date End Date Una Telles NP PCP - General 06/25/19
[2024-10-02 17:16] LABS: Glucose, Whole Blood 70 mg/dL (60-115)
[2024-10-02 18:10] LABS: Glucose, Whole Blood 96 mg/dL (60-115)
[2024-10-02 22:48] VITALS: BP 181/73; PULSE 64; RESP 16; TEMP 36.5; O2SAT 98
[2024-10-03] VITALS (11 sets, daily range): BP systolic 130–201; BP diastolic 76–97; PULSE 60–68; RESP 15–22; TEMP 36–36.6; O2SAT 94–98
--- NOTE | 2024-10-03 00:38 | P.HPHOSP_ITS ---
History of Present Illness Date of Service: 10/03/24 Chief Complaint: Dyspnea This is a 73-year-old female with pertinent history of peripheral vascular disease status post left BKA, congestive heart failure with reduced ejection fraction, hypertension, insulin-dependent diabetes mellitus, CKD who presents to the emergency department for evaluation of dyspnea. Patient states she has been having dyspnea which is worse with exertion that has been ongoing for the last few days. Also admits PND. Patient called [facility] who asked the patient to come to the ER for IV diuresis. No cough. No fever, chills, dyspnea, palpitations, abdominal pain, changes in urinary or bowel habits. Patient is Creole speaking and history obtained with the help of son and RN at bedside In the emergency department, imaging with interstitial edema and BNP found to be elevated. Also blood glucose found to be 40 Review of Systems 2 Constitutional: Constitutional: Reports fatigue and Reports malaise Cardiovascular: Cardiovascular: Reports dyspnea on exertion, Reports orthopnea and Reports paroxysmal nocturnal dyspnea Respiratory: Respiratory: Reports dyspnea on exertion Gastrointestinal: Gastrointestinal: Reports no additional gastrointestinal complaints Genitourinary: Genitourinary: Reports no additional female genitourinary complaints Endocrine: Endocrine: Reports fatigue [facility] Medical History (Updated 10/03/24 @ 00:47 by Dru Kulkarni MD) Acute systolic CHF (congestive heart failure) Essential hypertension PAD (peripheral artery disease) Hypertension Mood disorder Diabetes Surgical History History of transmetatarsal amputation of right foot (08/31/23) History of left below knee amputation History of femoral angiogram History of left below knee amputation Pacemaker Social History Household Members: Family and Children Housing: House Unable to assess alcohol history related to: Unknown Alcohol intake: current Alcohol intake frequency: holidays/special occasions only Patient Tobacco Use Status: Never used Tobacco Advance Directives: No Advance Directives Information Provided: Yes Do you have a plan to hurt others: No Plan service: No Current occupational status: retired Meds Allergies Allergy/AdvReac Type Severity Reaction Status Date / Time penicillin V Allergy Unknown RSH,ITCHY Verified 10/02/24 14:58 Home Medications ?Medication ?Instructions ?Recorded ?Confirmed ?Last Taken ?Type aspirin 81 mg chewable tablet 81 mg PO DAILY 10/22/22 08/24/23 Unknown History multivitamin 1 tab PO DAILY 08/24/23 08/24/23 Unknown History acetaminophen 325 mg capsule 650 mg PO Q6H PRN 10/11/23 Unknown History carvedilol 6.25 mg tablet 6.25 mg PO BID 10/11/23 Unknown History enoxaparin 30 mg/0.3 mL 30 mg subcut DAILY 10/11/23 Unknown History subcutaneous syringe (Lovenox) ferrous gluconate 324 mg (38 mg 324 mg PO DAILY 10/11/23 Unknown History iron) tablet hydralazine 25 mg tablet 75 mg PO BID 10/11/23 Unknown History magnesium hydroxide 400 mg/5 mL 5 ml PO DAILY PRN 10/11/23 Unknown History oral suspension (Milk of Magnesia) atorvastatin 20 mg tablet 20 mg PO DAILY 11/23/23 Unknown History insulin glargine-yfgn 100 unit/mL unit subcut 11/23/23 Unknown History subcutaneous solution silver sulfadiazine 1 % topical appl topical 11/23/23 Unknown History cream isosorbide mononitrate 120 mg 120 mg PO DAILY 06/25/24 Unknown History tablet,extended release 24 hr Physical Exam 2 Vital Signs and Narrative: Vital Signs: Last Vital Signs Temp 97.7 F 10/02/24 22:48 Pulse 64 10/02/24 22:48 Resp 16 10/02/24 22:48 BP 181/73 H 10/02/24 22:48 Pulse Ox 98 10/02/24 22:48 O2 Del Method Room Air 10/02/24 22:48 BMI result Body Mass Index 27.5 Middle-aged female lying in bed in mild distress Neck supple, no JVD Regular rate and rhythm, S1-S2 heard Bilateral crackles without wheezing Abdomen soft nontender, no guarding, no rigidity Patient is awake, alert and oriented to self, place, time and person ; no focal motor deficit Psych: Normal mood Left BKA Results Labs 10/02/24 15:18 10/02/24 15:18 Labs: Laboratory Results - last 24 hr 10/02/24 10/02/24 10/02/24 15:18 17:12 18:06 MCV 81.6 MCH 26.3 L MCHC 32.2 RDW 17.1 H Plt Count 314 MPV 9.4 Immature Gran % (Auto) 0.3 Neut % (Auto) 73.4 H Lymph % (Auto) 12.1 L [place] % (Auto) 13.1 H Eos % (Auto) 0.9 Baso % (Auto) 0.2 Lymph # (Auto) 0.7 L [place] # (Auto) 0.8 Eos # (Auto) 0.1 Baso # (Auto) 0.0 Abs Immat Gran (auto) 0.02 Absolute Neuts (auto) 4.3 Absolute Nucleated RBC 0.000 Nucleated RBC % (auto) 0.0 PT 12.9 H INR 1.1 Anion Gap 11 L Estim Creat Clear Calc 19.8 Estimated GFR 19 POC Glucose 70 96 Random Glucose 40 L* Calcium 8.7 D Magnesium 2.1 Total Bilirubin 0.2 Direct Bilirubin < 0.2 AST 24 ALT 26 Alkaline Phosphatase 84 B-Natriuretic Peptide 524 H Total Protein 8.3 H Albumin 3.3 L Influenza Type A (PCR) NEGATIVE Influenza Type B (PCR) NEGATIVE RSV RNA Qual (PCR) NEGATIVE SARS-CoV-2 RNA (RT-PCR) NEGATIVE Assessment and Plan (1) Acute systolic CHF (congestive heart failure): Status: Acute (2) Acute kidney injury: Status: Acute Plan This is a 73-year-old female with pertinent history of peripheral vascular disease status post left BKA, congestive heart failure with reduced ejection fraction, hypertension, insulin-dependent diabetes mellitus, CKD who presents to the emergency department for evaluation of dyspnea. #. Acute on chronic congestive heart failure with reduced ejection fraction: Will admit patient with IV diuresis. On Coreg, hydralazine and isosorbide dinitrate. Obtaining transthoracic echocardiogram. Strict I's and O's. Low- salt diet #. ANNIE on CKD, cardiorenal in the setting of above: Monitor with IV diuresis. Nephrology consulted #. Hypoglycemia in a patient with insulin-dependent diabetes mellitus: Blood sugar improved with p.o. intake. Closely monitor and hold basal plus regimen for now #. Peripheral vascular disease: On dual antiplatelet therapy and statin Med rec pending DVT prophylaxis: Lovenox Full code Admit as inpatient and will require two night minimum hospital stay for monitoring of volume status, kidney function (as above), which is not possible in a lesser acute setting. Nephrology consult pending Quality Stroke Does the patient have a stroke diagnosis?: No VTE Prior VTE?: No VTE Risk Level:: Medical - moderate - high VTE Device Contraindication: Treatment Not Indicated VTE Drug Contraindication: N/A - Med Ordered
[2024-10-03] MEDS: Furosemide 40 MG/4 ML VIAL IVPUSH (01:24)
--- NOTE | 2024-10-03 01:25 | PC.NURSE ---
delay in med administration as pt in [facility] d/t incontinence wanting to wait until in a room and able to use purewick. head charger made aware. pt now in ed3 on purewick. medicated per oct. aware of BP.
[2024-10-03 01:39] LABS: Glucose, Whole Blood 96 mg/dL (60-115)
[2024-10-03] MEDS: hydrALAZINE HCl 20 MG/ML VIAL IVPUSH (02:09)
--- NOTE | 2024-10-03 03:02 | PC.NURSE ---
MD aware of BP, no new orders.
[2024-10-03 06:01] LABS: Anion Gap 14 (12-20); Blood Urea Nitrogen 56 mg/dL (9-16); Calcium 9.1 mg/dL (8.4-10.2); Carbon Dioxide 19 mmol/L (22-29); Chloride 105 mmol/L (96-108); Creatinine Clr Calc Pharmacy 22.7; Estimated Glomerular Filt Rate 22; Glucose Random 74 mg/dL (60-115); Potassium 4.7 mmol/L (3.3-5.1); Sodium 133 mmol/L (135-145)
[2024-10-03 06:04] LABS: MANUAL DIFF FLAG NO
[2024-10-03 06:19] LABS: Basophils Percent Auto 0.4 % (0-2); Eosinophils Absolute Auto 0.1 X10*3/uL (0.0-0.4); Eosinophils Percent Auto 1.3 % (0-4); Hematocrit 28.4 % (37.0-47.0); Hemoglobin 9.2 g/dl (12.0-16.0); Imm Gran Abs Auto 0.02 X10*3/uL (0.00-0.03); Imm Gran Pct Auto 0.4 % (0.0-0.4); Lymphocytes Absolute Auto 0.8 X10*3/uL (1.2-4.9); Lymphocytes Percent Auto 14.3 % (20-40); Mean Corpuscular HGB Conc 32.4 g/dl (31.0-35.0); Mean Corpuscular Volume 80.2 fL (80.0-98.0); Mean Platelet Volume 9.8 fL (9.4-12.3); Monocytes Absolute Auto 0.9 X10*3/uL (0.1-1.2); Monocytes Percent Auto 16.8 % (2-11); Neutrophils Absolute Auto 3.5 x10*3/uL (2.0-8.3); Neutrophils Percent Auto 66.8 % (45-73); Platelet Count 330 X10*3/uL (160-400); Red Blood Count 3.54 X10*6/uL (4.20-5.50); Red Cell Distribution Width 17.1 % (11.0-16.0); White Blood Count 5.2 X10*3/uL (4.8-10.8)
[2024-10-03 06:37] LABS: Glucose, Whole Blood 74 mg/dL (60-115)
--- NOTE | 2024-10-03 07:00 | CA_ITS ---
Transthoracic Echocardiogram Patient (Last, First, Middle): Belkys Florian, Gender: Female Date of : 1950 Age: 73 Procedure Date: 10/03/2024 Procedure Type: Transthoracic Echocardiogram Location: ER Height: 162.56 cm Weight: 72.58 kg BSA: 1.78 m2 Heart Rate: 65 bpm BP: 203 / 96 mmHg Ceo & Board Director: ANDIE Referring MD: Dru Kulkarni MD Ms Sql Developer: Yeison Green MD Symptoms: CHF Study Quality: Adequate w contrast ECG Rhythm: Paced Conclusions: - 1. Severely reduced LV ejection fraction 25-30% 2. Mildly dilated left atrium 3. Mildly to moderately elevated right ventricular systolic pressure was significantly elevated right atrial pressures 4. No gross pericardial effusion Findings Procedure Information Contrast agent, definity, is being given per protocol without apparent complications. The quality of the study was technically difficult. The study quality is limited by lung artifact. Left Ventricle Normal left ventricular cavity size. There is normal left ventricular wall thickness. The left ventricular systolic function is severely decreased. The visually estimated ejection fraction is between 25-30%. There is paradoxical septal motion consistent with a right ventricular pacemaker. Spectral Doppler is indicative of an impaired relaxation filling pattern. E/E prime ratio is between 8 and 15 consistent with indeterminate filling pressures. Right Ventricle Normal right ventricular cavity size. There is a pacemaker wire seen in the right ventricle. Atria The left atrium is mildly dilated. There is no evidence of interatrial shunt. The right atrium is likely dilated. A pacemaker wire is identified in the right atrium. Aortic Valve Normal aortic valve structure and function. There is no aortic valve stenosis. There is no aortic valve regurgitation. Mitral Valve Normal mitral valve structure and function. There is trace mitral valve regurgitation. There is no mitral valve stenosis. Pulmonic Valve The pulmonic valve is likely normal. Tricuspid Valve Likely normal tricuspid valve structure and function. There is mild tricuspid valve regurgitation. Significantly elevated right atrial pressure. Mild to moderate pulmonary hypertension is present. Great Vessels All visible segments of the aorta are normal in size. The pulmonary artery was not well visualized. There is no dilatation of the ascending aorta measuring 3.20 cm. Small plaque is seen in the sino tubular ridge. Venous The inferior vena cava is mildly dilated and does not collapse with inspiration. Pericardium/Pleural There is no evidence of pericardial effusion. Prior Study Comparison Changes noted compared to prior study dated: 08/30/2023. LV systolic function has significantly reduced, right atrial pressures are significantly elevated Measurements 2D Linear Measurements IVSd: 1.29 0.6-0.9/0.6-1.0 cm LVIDd: 4.89 3.9-5.3/4.2-5.9 cm LVIDd Index: 2.75 2.4-3.2/2.2-3.1 cm/m2 LVIDs: 3.69 2.0-3.6 cm LVPWd: 0.79 0.7-1.1 cm LA Diam: 3.60 2.7-3.8/3.0-4.0 cm LAIDs Index: 2.02 1.5-2.3 cm/m2 LV Mass: 231.15 67-162/88-224 g LV Mass Index: 129.86 43-95/49-115 g/m2 LVOT Diam: 1.90 3.0+(-)1.3 cm 2D Systolic Function EF 4C: 37.00 >55% EF 2C: 24.80 >55% EF BiP: 30.00 >55% Mitral Valve MV Pk E: 0.62 MV PK A: 0.89 MV Decel Time: 177.00 E/A: 0.70 E'Lateral: 6.57 E'Medial: 3.59 E/E' Med: 17.20 E/E' Lat: 9.40 PHT: 52.00 MVA PHT: 4.23 Decel [place]: 3.48 Aortic Valve AoV Pk Devin: 1.51 AoV Mn Devin: 0.97 AoV VTI: 0.34 AoV Pk Grad: 9.00 Aov Mn Grad: 4.00 TEDDY Cont.VTI: 1.48 LVOT LVOT Pk Devin: 0.83 LVOT Mn Devin: 0.54 LVOT VTI: 0.18 LVOT Pk Grad: 3.00 LVOT Mn Grad: 2.00 LVOT Diam: 1.90 LVOT Area: 2.84 Diastolic Function MV Pk E: 0.62 MV Pk A: 0.89 E/A: 0.70 E'Medial: 3.59 E/E' Med: 17.20 E' Laterial: 6.57 E/E' Lat: 9.40 Right Ventricle TAPSE (mm): 22.60 TVS' Devin: 11.00 Tricuspid Valve TR Pk Devin: 2.90 TR Pk Grad: 34.00 RA Press: 15.00 RVSP: 49.00 Great Vessels Aorta Sinus of Valsalva: 2.90 2.0-3.5 cm Ao Asc: 3.20 2.1-3.4 cm Pulmonary Veins Pulm Vein S/D 0.50 Pulmonary Valve PV Pk Devin: 0.79 Peak PV Grad: 3.00 Updated in Other Vendor System with Status of Final Yeison Green MD electronically signed on 10/03/2024 12:08:57 PM with status of Final
[2024-10-03 08:40] LABS: Procalcitonin 0.08 ng/mL
[2024-10-03] MEDS: Enoxaparin Sodium 30 MG/0.3 ML SYRINGE SUBCUT (09:13)
[2024-10-03] MEDS: Furosemide 100 MG/10 ML VIAL 60 MG IVPUSH (09:14)
[2024-10-03] MEDS: 0.9 % Sodium Chloride Flush 3 ML SYRINGE IVFLUSH (09:15)
--- NOTE | 2024-10-03 09:57 | PC.NURSE ---
Pt is alert, minimal Kyrgyz, son briefly at bedside. Pt noted with distended abd, denies pain. Breathing is sl labored, however pt offers no complaints. Skin color normal for ethnicity. Output approx 1500ml Dsg changed to right foot toe amp site as old dressing saturated with serosang drainage. Pic sent to hospitalist for review and wound is at baseline at this time. Awaiting son to return to bedside for med rec. HTN, Valentina WILEY aware, awaits med rec to give home BP meds.
--- NOTE | 2024-10-03 11:18 | PHA.MEDREC ---
Addendum entered by Allen Boyer RPh 10/03/24 11:57: Reviewed by [facility] ED Original Note: Pharmacy Consult ? Medication Reconciliation Pharmacy has completed the medication reconciliation. Spoke to patient ely Carrera to confirm med list. Son states patient no longer takes Carvedilol 6.25 mg (now taking 12.5 mg), Docusate sod 100 mg, enoxaparin 30 mg/0.3ml, Famotidine 20 mg, Ferrous Gluconate 324 mg, Ferrous sulfate 300 mg, ipratropium albuterol, Isosorbide mono 60 mg ( now taking ER 120 mg) Magnesiumm hydox 400 mg/5ml, Miralax. Son confirmed Insulin Glargine 25 units at bedtime, and Fiasp 12 units TID.
--- NOTE | 2024-10-03 11:50 | PM.EVENT ---
Event Note Date of Service: 10/03/24 Event Note: see and examined this morning attempted to obtain history with demian designated broker as pt speaks Mongolian Creole however patient is not a good historian and unable to provide any details regarding her medical history. She does report she came to the emergency department due to shortness of breath. The majority of her history was obtained from her son over the phone who states that she was admitted to [facility] in the 1st week of August due to heart which was reportedly due to abnormal kidney function. She was reportedly not discharged with any Lasix. Following her discharge she became dyspneic which is why she came to the emergency department. This is a 73-year-old female with pertinent history of peripheral vascular disease status post left BKA, congestive heart failure with reduced ejection fraction, hypertension, insulin-dependent diabetes mellitus, CKD who presents to the emergency department for evaluation of dyspnea. Acute on chronic congestive heart failure with reduced ejection fraction: received IV lasix, will change to continuous drip echo pending sanchez for Strict I's and O's, Low-salt diet seen by cardiology attempting to obtain records from recent admission at [facility] uncontrolled HTN rule out LIZZETTE - renal doppler ordered d/w cardiology - increase hydralazine to 100 twice daily, reduce Coreg to 6.25 b.i.d., hold nifedipine, hold isosorbide for now, will replace with short acting nitrates follow bp closely ANNIE on CKD cardiorenal in the setting of above: SCr down to 2.15 (baseline around 1.6) follow renal function closely Nephrology consulted hyponatremia likely due to chf improving follow BMP Hypoglycemia in a patient with insulin-dependent diabetes mellitus: Blood sugar improved with p.o. intake. Closely monitor and hold basal plus regimen for now check hba1c Peripheral vascular disease: On dual antiplatelet therapy and statin s/p right transmetatarsal amputation with non healing amputation site (due to PVD) followed by vascular surgery sent photo - reported to be stable from previous office visit - rec to continue alginate, 4x4, foam pad, and kerlix wraps Time Spent With Patient Time: Total time managing care of this patient today ____ minutes.
[2024-10-03] MEDS: hydrALAZINE HCl 50 MG TABLET 100 MG PO ×2 (11:51→21:13)
--- NOTE | 2024-10-03 11:54 | MHC.CM.PN ---
Addendum entered by Liya Vyas 10/03/24 14:02: Patient is active with Tina [facility]OFFMAN. Original Note: CM met with Patient at bedside and addressed IMM with her, providing Patient with the original and a copy will be placed on the chart. Patient's Nephew/FOLLOW UP REP from [facility] was visiting; Patient speaks some Upper Sorbian and Nephew supplemented with Omani translation here and there. Patient lives in an apartment with her Son and she uses a walker and a w/c to assist with mobility (S/P (L) BKA). Home/resume said services is Patient's goal and CM has initiated and will follow for dc planning. PCP us Dr. Afua Leblanc and HCP is Daughter/Yumijuan. Patient's Son will transport to home.
--- NOTE | 2024-10-03 11:54 | PM.CNCAR ---
History of Present Illness History of Present Illness Date of Service: 10/03/24 Requesting physician: Valentina Morales Consult reason: congestive heart failure Chief complaint: Facial Swelling Kidney Failure Diff Breathing Narrative: I was consulted to see Belkys in cardiology consultation today for what appears to be decompensated congestive heart failure. 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 Also son was now very aware of her past medical history. 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 He was a Medtronic dual-chamber pacemaker. It seems like she has AV dual paced and may have complete heart block although this is unclear. She has history of longstanding hypertension although she says only for about a year since she had her leg surgery. Apparently she has been taking her medications religiously. She has chronic kidney disease follows with Nephrology and supposedly a baseline creatinine is 1.8. She has no known prior coronary artery disease but does have history of vascular disease. She also has history of anemia of chronic disease. She came to the hospital after discharge from [facility] about week ago for what appears to be decompensated congestive heart failure. As per secondhand history from the son it seems like she was told that she had congestive heart failure related to poor kidney function. However kidneys had improved after diuresis and was sent home. Very soon after discharge from the hospital she started getting more and more short of breath and therefore was advised to come to the emergency room here. In the emergency room here she had a bedside echocardiogram which shows severely reduced LV ejection fraction. She was markedly hypertensive. She was also markedly fluid overloaded. She has had negative balance of about 1500 cc so far with IV diuresis. Cardiology consult was sought for further management. As mentioned again history is very difficult to obtain. I am not sure whether she is having any symptoms of orthopnea or PND but definitely she does have leg edema and does have increasing shortness of breath. No clear reported chest pain although although this is also difficult to assess. She has not had any palpitations. Review of Systems Review of Systems: Yes Other (Due to language barrier and understanding barrier) Cardiovascular: Cardiovascular: Reports Abdominal Distension, Reports leg edema and Reports dyspnea Respiratory: Respiratory: Reports dyspnea PMFSH Past Medical History Medical History Acute systolic CHF (congestive heart failure) Essential hypertension PAD (peripheral artery disease) Hypertension Mood disorder Diabetes Surgical History Surgical History History of transmetatarsal amputation of right foot (08/31/23) History of left below knee amputation History of femoral angiogram History of left below knee amputation Pacemaker Social History Social History Household Members: Family and Children Housing: House Unable to assess alcohol history related to: Unknown Alcohol intake: current Alcohol intake frequency: does not drink Patient Tobacco Use Status: Never used Tobacco Smoked in Last 30 Days: No Use of substances other than those prescribed or required for medical reasons: No Advance Directives: No Advance Directives Information Provided: Yes Do you have a plan to hurt others: No Plan service: No Current occupational status: retired Meds Allergies Allergy/AdvReac Type Severity Reaction Status Date / Time penicillin V Allergy Unknown RSH,ITCHY Verified 10/02/24 14:58 Active Medications: Current Medications Acetaminophen (Acetaminophen 325 Mg Tablet) 650 mg PO Q6H PRN PRN Reason: Pain, Mild 1-3,fever,headache Calcium Carbonate (Calcium Carbonate 750 Mg Tab.Chew) 750 mg PO Q4H PRN PRN Reason: Heartburn Dextrose (Dextrose 50 % 25 Gm/50 Ml Syringe) 25 gm IVPUSH Q15M PRN; Protocol PRN Reason: per Hypoglycemia Standing Ord. Enoxaparin Sodium (Enoxaparin Sodium 30 Mg/0.3 Ml Syringe) 30 mg SUBCUT Q24H [facility] Last Admin: 10/03/24 09:13 Dose: 30 mg Glucose (Glucose Gel 15 Gm Gel..Gram.) 15 gm PO Q15M PRN; Protocol PRN Reason: per Hypoglycemia Standing Ord. Hydralazine HCl (Hydralazine Hcl 50 Mg Tablet) 100 mg PO BID JAJA; Protocol Furosemide 200 mg/ Sodium (Chloride) 100 mls @ 2.5 mls/hr IVCONT .Q24H JAJA Magnesium Hydroxide (Milk Of Magnesia 30 Ml Oral.Susp) 30 ml PO DAILY PRN PRN Reason: Constipation Melatonin (Melatonin 3 Mg Tablet) 6 mg PO BEDTIME PRN PRN Reason: Insomnia Nitroglycerin (Nitroglycerin 2 % Oint 1 Gm Packet) 0.5 inch TRANSDERMA RQ6H WHILE AWAKE [facility] Ondansetron HCl (Ondansetron Hcl 4 Mg/2 Ml Vial) 4 mg IVPUSH Q8H PRN PRN Reason: Nausea and Vomiting Sodium Chloride (0.9 % Sodium Chloride Flush 3 Ml Syringe) 3 ml IVFLUSH QSHIFT JAJA Last Admin: 10/03/24 09:15 Dose: 3 ml Home Medications ?Medication ?Instructions ?Recorded ?Confirmed ?Last Taken ?Type aspirin 81 mg chewable tablet 81 mg PO DAILY 10/22/22 10/03/24 10/02/24 History acetaminophen 325 mg capsule 650 mg PO Q6H PRN Pain 10/11/23 10/03/24 Unknown History hydralazine 25 mg tablet 75 mg PO BID 10/11/23 10/03/24 10/02/24 History silver sulfadiazine 1 % topical 1 appl topical DAILY 11/23/23 10/03/24 10/02/24 History cream isosorbide mononitrate 120 mg 120 mg PO DAILY 06/25/24 10/03/24 10/02/24 History tablet,extended release 24 hr carvedilol 12.5 mg tablet 12.5 mg PO BID 10/03/24 10/03/24 10/02/24 History insulin aspart 12 unit subcut TIDWM 10/03/24 10/03/24 10/02/24 History (niacinamide)(U-100) 100 unit/mL(3 mL) subcutaneous pen (Fiasp FlexTouch U-100 Insulin) insulin glargine-yfgn 100 unit/mL 25 unit subcut BEDTIME 10/03/24 10/03/24 10/02/24 History (3 mL) subcutaneous pen nifedipine 60 mg tablet,extended 60 mg PO BEDTIME 10/03/24 10/03/24 10/02/24 History release pantoprazole 40 mg tablet,delayed 40 mg PO DAILY@0630 10/03/24 10/03/24 10/02/24 History release vitamin B comp no.3-folic acid 1 1 tab PO DAILY 10/03/24 10/03/24 10/02/24 History mg-vit C 60 mg-biotin 300 mcg tablet ([facility]) Physical Exam Vital Signs: Vital Signs: Last Vital Signs Temp 97.3 F 10/03/24 02:07 Pulse 66 10/03/24 09:15 Resp 22 H 10/03/24 09:15 BP 195/86 H 10/03/24 09:15 Pulse Ox 94 10/03/24 09:15 O2 Del Method Room Air 10/03/24 09:15 BMI result Body Mass Index 27.5 Const: General: cooperative, alert, awake and in distress moderate and respiratory Nutritional Appearance: average body habitus Orientation/consciousness: patient oriented x3 HEENT: Head: Yes normocephalic and Yes atraumatic Neck: Neck: Yes trachea midline, Yes supple and Yes JVD Resp: Effort & Inspection: normal respiratory effort Auscultation: crackles and diminished lung sounds Cardio: Jugular venous distension: JVD Palpation: abnormal PMI displaced PMI Rate: regular rate Rhythm: regular rhythm Heart sounds: S1 normal heart sound present, S2 normal heart sound present, no click, no gallops and no murmurs GI: Inspection: Yes distended Auscultation: normal bowel sounds Skin: General skin exam: no rashes or lesions noted Neuro: General: patient oriented x3 and no focal motor deficits Extrem: General: No clubbing, No cyanosis and Yes edema Objective Labs and Meds 10/03/24 05:28 10/03/24 05:28 Lab results: Laboratory Results - last 24 hr 10/02/24 10/02/24 10/02/24 15:18 17:12 18:06 WBC 5.8 RBC 3.58 L Hgb 9.4 L Hct 29.2 L MCV 81.6 MCH 26.3 L MCHC 32.2 RDW 17.1 H Plt Count 314 MPV 9.4 Immature Gran % (Auto) 0.3 Neut % (Auto) 73.4 H Lymph % (Auto) 12.1 L [place] % (Auto) 13.1 H Eos % (Auto) 0.9 Baso % (Auto) 0.2 Lymph # (Auto) 0.7 L [place] # (Auto) 0.8 Eos # (Auto) 0.1 Baso # (Auto) 0.0 Abs Immat Gran (auto) 0.02 Absolute Neuts (auto) 4.3 Absolute Nucleated RBC 0.000 Nucleated RBC % (auto) 0.0 PT 12.9 H INR 1.1 Sodium 131 L Potassium 4.8 Chloride 105 Carbon Dioxide 20 L Anion Gap 11 L BUN 62 H Creatinine 2.46 H Estim Creat Clear Calc 19.8 Estimated GFR 19 POC Glucose 70 96 Random Glucose 40 L* Calcium 8.7 D Magnesium 2.1 Total Bilirubin 0.2 Direct Bilirubin < 0.2 AST 24 ALT 26 Alkaline Phosphatase 84 Troponin I High Sens 6.4 B-Natriuretic Peptide 524 H Total Protein 8.3 H Albumin 3.3 L Procalcitonin Influenza Type A (PCR) NEGATIVE Influenza Type B (PCR) NEGATIVE RSV RNA Qual (PCR) NEGATIVE SARS-CoV-2 RNA (RT-PCR) NEGATIVE 10/03/24 10/03/24 10/03/24 01:35 05:28 06:34 WBC 5.2 RBC 3.54 L Hgb 9.2 L Hct 28.4 L MCV 80.2 MCH 26.0 L MCHC 32.4 RDW 17.1 H Plt Count 330 MPV 9.8 Immature Gran % (Auto) 0.4 Neut % (Auto) 66.8 Lymph % (Auto) 14.3 L [place] % (Auto) 16.8 H Eos % (Auto) 1.3 Baso % (Auto) 0.4 Lymph # (Auto) 0.8 L [place] # (Auto) 0.9 Eos # (Auto) 0.1 Baso # (Auto) 0.0 Abs Immat Gran (auto) 0.02 Absolute Neuts (auto) 3.5 Absolute Nucleated RBC 0.000 Nucleated RBC % (auto) 0.0 PT INR Sodium 133 L Potassium 4.7 Chloride 105 Carbon Dioxide 19 L Anion Gap 14 BUN 56 H Creatinine 2.15 H Estim Creat Clear Calc 22.7 Estimated GFR 22 POC Glucose 96 74 Random Glucose 74 Calcium 9.1 Magnesium Total Bilirubin Direct Bilirubin AST ALT Alkaline Phosphatase Troponin I High Sens B-Natriuretic Peptide Total Protein Albumin Procalcitonin 0.08 Influenza Type A (PCR) Influenza Type B (PCR) RSV RNA Qual (PCR) SARS-CoV-2 RNA (RT-PCR) Assessment and Plan (1) Acute systolic CHF (congestive heart failure): Status: Acute Acute decompensated systolic congestive heart failure in this elderly with severe LV systolic dysfunction of unclear etiology. Possible differential diagnose include ischemic cardiomyopathy versus pacemaker induced cardiomyopathy versus hypertensive cardiomyopathy. She was multiple comorbidities including lack of understanding and knowledge of her medical history, chronic kidney disease, chronic anemia, peripheral vascular disease, poor functionality, uncontrolled hypertension which all limit her prognosis. She has higher creatinine clinically appears to be significantly fluid overloaded. At this point time she requires intense diuretic regimen and education for heart failure management. He was started on Lasix drip 5 mg an hour. Possible she has component of cardiorenal syndrome contributing to her worsening creatinine. Will continue monitor renal function closely. She was significantly elevated high blood pressure despite apparently taking medications and low-salt diet had home could be renovascular hypertension given her significant vascular disease. Would suggest a renal duplex to further assess for the same. Meanwhile will start on nitro paste 2 in q.6 hours along with hydralazine 100 mg b.i.d.. She was on carvedilol therapy and this will be continued. If renal function improves, will transition her to Entresto therapy if tolerated. May also benefit from spironolactone therapy. Hold off on calcium channel jose angel therapy. Will require ischemic workup. Will also require pacemaker evaluation. Greater than 45 minutes was spent in managing his complex care. Procedures Date of Service Date of Service: 10/03/24
[2024-10-03] MEDS: Furosemide 200 MG in 0.9 % Sodium Chloride 80 ML IVCONT (12:10)
[2024-10-03 12:21] LABS: Estimated Average Glucose 186 mg/dL; Hemoglobin A1c % 8.1 % (<6.0); Total Hemoglobin (HGBA1C) 2461.8382 umol/L
[2024-10-03 12:31] LABS: Glucose, Whole Blood 228 mg/dL (60-115)
--- NOTE | 2024-10-03 15:28 | PM.CNNEP ---
History of Present Illness Reason for Consult Consult date: 10/03/24 Reason for consult: ANNIE on CKD Chief Complaint Chief complaint: Facial Swelling Kidney Failure Diff Breathing History of Present Illness Narrative: 73-year-old female with CKD 3b , peripheral vascular disease status post left BKA, congestive heart failure with reduced ejection fraction, hypertension, insulin-dependent diabetes mellitus who presented to the emergency department for evaluation of dyspnea which has been getting worse with exertion that has been ongoing for the last few days. She has been having PND.She had no cough, fever, chills, dyspnea, palpitations, abdominal pain, changes in urinary or bowel habits. She was admitted for further management. Nephrology has been consulted to assist in her clinical care during her current hospital stay Review of Systems Review of Systems Yes all other systems are reviewed and are negative PMFSH Past Medical History Medical History Acute systolic CHF (congestive heart failure) Essential hypertension PAD (peripheral artery disease) Hypertension Mood disorder Diabetes Surgical History Surgical History History of transmetatarsal amputation of right foot (08/31/23) History of left below knee amputation History of femoral angiogram History of left below knee amputation Pacemaker Social History Social History Household Members: Family and Children Housing: House Unable to assess alcohol history related to: Unknown Alcohol intake: current Alcohol intake frequency: does not drink Patient Tobacco Use Status: Never used Tobacco Smoked in Last 30 Days: No Use of substances other than those prescribed or required for medical reasons: No Advance Directives: No Advance Directives Information Provided: Yes Do you have a plan to hurt others: No Plan service: No Current occupational status: retired Meds Allergies Allergy/AdvReac Type Severity Reaction Status Date / Time penicillin V Allergy Unknown RSH,ITCHY Verified 10/02/24 14:58 Active Medications: Current Medications Acetaminophen (Acetaminophen 325 Mg Tablet) 650 mg PO Q6H PRN PRN Reason: Pain, Mild 1-3,fever,headache Aspirin (Aspirin 81 Mg Tab.Chew) 81 mg PO DAILY [facility] Calcium Carbonate (Calcium Carbonate 750 Mg Tab.Chew) 750 mg PO Q4H PRN PRN Reason: Heartburn Carvedilol (Carvedilol 6.25 Mg Tablet) 6.25 mg PO BID [facility] [place]; Protocol Clopidogrel Bisulfate (Clopidogrel Bisulfate 75 Mg Tablet) 75 mg PO DAILY [facility] Dextrose (Dextrose 50 % 25 Gm/50 Ml Syringe) 25 gm IVPUSH Q15M PRN; Protocol PRN Reason: per Hypoglycemia Standing Ord. Enoxaparin Sodium (Enoxaparin Sodium 30 Mg/0.3 Ml Syringe) 30 mg SUBCUT Q24H [facility] Last Admin: 10/03/24 09:13 Dose: 30 mg Glucose (Glucose Gel 15 Gm Gel..Gram.) 15 gm PO Q15M PRN; Protocol PRN Reason: per Hypoglycemia Standing Ord. Hydralazine HCl (Hydralazine Hcl 50 Mg Tablet) 100 mg PO BID [facility] [place]; Protocol Last Admin: 10/03/24 11:51 Dose: 100 mg Furosemide 200 mg/ Sodium (Chloride) 100 mls @ 2.5 mls/hr IVCONT .Q24H [facility] Last Admin: 10/03/24 12:10 Dose: 5 mg/hr, 2.5 mls/hr Magnesium Hydroxide (Milk Of Magnesia 30 Ml Oral.Susp) 30 ml PO DAILY PRN PRN Reason: Constipation Melatonin (Melatonin 3 Mg Tablet) 6 mg PO BEDTIME PRN PRN Reason: Insomnia Multivitamins/Vitamin C (Multivitamin Tablet) 1 tab PO DAILY [facility] Nitroglycerin (Nitroglycerin 2 % Oint 1 Gm Packet) 0.5 inch TRANSDERMA RQ6H WHILE AWAKE [facility] Ondansetron HCl (Ondansetron Hcl 4 Mg/2 Ml Vial) 4 mg IVPUSH Q8H PRN PRN Reason: Nausea and Vomiting Pantoprazole Sodium (Pantoprazole Sodium 20 Mg Tablet.Dr) 40 mg PO DAILY@0630 [facility] Silver Sulfadiazine (Silver Sulfadiazine 1 % Cream 20 Gm Tube) 1 appl TOPICAL DAILY [facility] Sodium Chloride (0.9 % Sodium Chloride Flush 3 Ml Syringe) 3 ml IVFLUSH QSHIFT [facility] Last Admin: 10/03/24 09:15 Dose: 3 ml Home Medications ?Medication ?Instructions ?Recorded ?Confirmed ?Last Taken ?Type aspirin 81 mg chewable tablet 81 mg PO DAILY 10/22/22 10/03/24 10/02/24 History acetaminophen 325 mg capsule 650 mg PO Q6H PRN Pain 10/11/23 10/03/24 Unknown History hydralazine 25 mg tablet 75 mg PO BID 10/11/23 10/03/24 10/02/24 History silver sulfadiazine 1 % topical 1 appl topical DAILY 11/23/23 10/03/24 10/02/24 History cream isosorbide mononitrate 120 mg 120 mg PO DAILY 06/25/24 10/03/24 10/02/24 History tablet,extended release 24 hr carvedilol 12.5 mg tablet 12.5 mg PO BID 10/03/24 10/03/24 10/02/24 History insulin aspart 12 unit subcut TIDWM 10/03/24 10/03/24 10/02/24 History (niacinamide)(U-100) 100 unit/mL(3 mL) subcutaneous pen (Fiasp FlexTouch U-100 Insulin) insulin glargine-yfgn 100 unit/mL 25 unit subcut BEDTIME 10/03/24 10/03/24 10/02/24 History (3 mL) subcutaneous pen nifedipine 60 mg tablet,extended 60 mg PO BEDTIME 10/03/24 10/03/24 10/02/24 History release pantoprazole 40 mg tablet,delayed 40 mg PO DAILY@0630 10/03/24 10/03/24 10/02/24 History release vitamin B comp no.3-folic acid 1 1 tab PO DAILY 10/03/24 10/03/24 10/02/24 History mg-vit C 60 mg-biotin 300 mcg tablet ([facility]) Physical Exam Vital Signs: Last Vital Signs Temp 97.3 F 10/03/24 02:07 Pulse 60 10/03/24 13:51 Resp 20 10/03/24 13:51 BP 188/79 H 10/03/24 13:51 Pulse Ox 95 10/03/24 13:51 O2 Del Method Room Air 10/03/24 13:51 BMI result Body Mass Index 27.5 Const General: no acute distress Orientation/consciousness: patient oriented x3 Eyes EOM: EOMs intact bilaterally Resp Auscultation: diminished lung sounds Cardio Rate: regular rate GI Palpation (GI): Soft to palpation Neuro General: patient oriented x3 Results Lab Results 10/03/24 05:28 10/03/24 05:28 Lab results: Chemistry 10/02/24 10/03/24 15:18 05:28 Sodium 131 L 133 L Potassium 4.8 4.7 Carbon Dioxide 20 L 19 L BUN 62 H 56 H Creatinine 2.46 H 2.15 H Calcium 8.7 D 9.1 Hematology 10/02/24 10/03/24 15:18 05:28 WBC 5.8 5.2 Hgb 9.4 L 9.2 L Plt Count 314 330 Assessment and Plan (1) Acute kidney injury: Status: Acute (2) CKD (chronic kidney disease) stage 4, GFR 15-29 ml/min: Status: Acute Plan Belkys has ANNIE due to CR syndrome Serum creatinine improving with diuresis Medications being optimized; Cardiology F/U No ACEI/ARB for now. Labs AM Procedures Date of Service Date of Service: 10/03/24
[2024-10-03] MEDS: Nitroglycerin 2 % Oint 1 GM Packet 0.5 INCH TRANSDERMA (15:35)
--- NOTE | 2024-10-03 17:58 | PC.NURSE ---
Nitro 0.5 inch to right chest, pt remains HTN, Valentina aware, will change Nitro to 1 inch. Lasix gtt continues. +Diuresis (see I&O). Breathing even/unlabored. Vergara placed and second line initiated.
[2024-10-03 20:26] LABS: Glucose, Whole Blood 168 mg/dL (60-115)
[2024-10-03] MEDS: Nitroglycerin 2 % Oint 1 GM Packet 1 INCH TRANSDERMA (21:11)
[2024-10-03] MEDS: carvediloL 6.25 MG TABLET PO (21:12)
[2024-10-03 23:57] LABS: Glucose, Whole Blood 200 mg/dL (60-115)
[2024-10-04 04:00] VITALS: BP 130/70; PULSE 70; RESP 16; TEMP 36.7; O2SAT 97
[2024-10-04 04:20] LABS: Glucose, Whole Blood 135 mg/dL (60-115)
[2024-10-04] MEDS: Pantoprazole Sodium 20 MG TABLET.DR 40 MG PO (05:45)
[2024-10-04 06:00] VITALS: BMI 25.2
[2024-10-04 07:12] LABS: Glucose, Whole Blood 112 mg/dL (60-115)
[2024-10-04 07:15] VITALS: BP 180/74; PULSE 62; RESP 18; TEMP 36.5; O2SAT 95
[2024-10-04 07:35] LABS: Anion Gap 12 (12-20); Blood Urea Nitrogen 51 mg/dL (9-16); Calcium 9.1 mg/dL (8.4-10.2); Carbon Dioxide 25 mmol/L (22-29); Chloride 101 mmol/L (96-108); Creatinine Clr Calc Pharmacy 20.3; Estimated Glomerular Filt Rate 21; Glucose Random 111 mg/dL (60-115); Potassium 4.1 mmol/L (3.3-5.1); Sodium 134 mmol/L (135-145)
[2024-10-04] MEDS: Nitroglycerin 2 % Oint 1 GM Packet 1 INCH TRANSDERMA (09:11)
[2024-10-04] MEDS: carvediloL 6.25 MG TABLET PO (09:13)
[2024-10-04] MEDS: Enoxaparin Sodium 30 MG/0.3 ML SYRINGE SUBCUT (09:13)
[2024-10-04] MEDS: Multivitamin TABLET 1 TAB PO (09:13)
[2024-10-04] MEDS: Clopidogrel Bisulfate 75 MG TABLET PO (09:13)
[2024-10-04] MEDS: hydrALAZINE HCl 50 MG TABLET 100 MG PO ×3 (09:14→20:37)
[2024-10-04] MEDS: Aspirin 81 MG TAB.CHEW PO (09:14)
[2024-10-04 11:07] VITALS: BP 186/84; PULSE 65; RESP 18; TEMP 36.5; O2SAT 96
--- NOTE | 2024-10-04 11:16 | MHC.CM.PN ---
EMR REVIEWED, PT W/ACUTE ON CHRONIC HF, ANNIE ON CKD, PT REMAINS ON LASIX DRIP, ANTIC POSSBILE DC SUN/MON W/RESUMP OF YANCEY VNA, CM WILL CONT TO FOLLOW DC NEEDS.
[2024-10-04 11:27] LABS: Glucose, Whole Blood 293 mg/dL (60-115)
[2024-10-04] MEDS: Isosorbide Mononitrate 60 MG TAB.ER.24H PO ×2 (11:41→20:36)
[2024-10-04] MEDS: Milk of Magnesia 30 ML ORAL.SUSP PO (11:41)
[2024-10-04] MEDS: Empagliflozin 10 MG TABLET PO (11:41)
--- NOTE | 2024-10-04 11:43 | PM.PNCARD ---
Subjective Subjective Date of Service: 10/04/24 Principal diagnosis: Decompensated systolic heart failure, uncontrolled hypertension Interval history: Patient was diuresed very well about-5.5 L. Echocardiogram shows severely reduced LV ejection fraction, unclear etiology. Remains significantly hypotensive despite her medications. Could not perform renal duplex she was today which is very essential. Should consider repeating it. Patient says she is breathing a lot better. Her leg edema has improved. Review of Systems Constitutional: Reports no additional constitutional complaints Cardiovascular: Reports Abdominal Distension, Denies chest pain, Reports leg edema, Denies lightheadedness, Denies Loss of Consciousness and Reports dyspnea on exertion Respiratory: Reports dyspnea on exertion Gastrointestinal: Reports no additional gastrointestinal complaints Psychiatric: Reports no additional psychiatric complaints Endocrine: Reports no additional endocrine complaints Physical Exam Vital Signs: Last Vital Signs Temp 97.7 F 10/04/24 11:07 Pulse 65 10/04/24 11:07 Resp 18 10/04/24 11:07 BP 186/84 H 10/04/24 11:07 Pulse Ox 96 10/04/24 11:07 O2 Del Method Room Air 10/04/24 11:07 BMI result Body Mass Index 25.2 Const General: cooperative, comfortable, no acute distress, alert and awake Nutritional Appearance: thin Orientation/consciousness: patient oriented x3 Neck Neck: Yes trachea midline, Yes supple and Yes JVD Resp Effort & Inspection: decreased respiratory effort Auscultation: no rales, no wheezes and diminished lung sounds Cardio Jugular venous distension: JVD Palpation: abnormal PMI displaced PMI Rate: regular rate Rhythm: regular rhythm Heart sounds: S1 normal heart sound present, S2 normal heart sound present, no click, no gallops, no murmurs and no rubs GI Inspection: Yes distended Auscultation: normal bowel sounds Skin General skin exam: no rashes or lesions noted Neuro General: patient oriented x3 and no focal motor deficits Extrem General: No clubbing, No cyanosis and Yes edema Objective Labs and Meds 10/03/24 05:28 10/04/24 06:33 Lab results: Laboratory Results - last 24 hr 10/03/24 10/03/24 10/03/24 05:28 12:28 20:13 Sodium Potassium Chloride Carbon Dioxide Anion Gap BUN Creatinine Estim Creat Clear Calc Estimated GFR POC Glucose 228 H 168 H Random Glucose Estimat Average Glucose 186 Hemoglobin A1c % 8.1 H Calcium 10/03/24 10/04/24 10/04/24 23:50 04:16 06:33 Sodium 134 L Potassium 4.1 Chloride 101 Carbon Dioxide 25 Anion Gap 12 BUN 51 H Creatinine 2.31 H Estim Creat Clear Calc 20.3 Estimated GFR 21 POC Glucose 200 H 135 H Random Glucose 111 Estimat Average Glucose Hemoglobin A1c % Calcium 9.1 10/04/24 10/04/24 07:05 11:18 Sodium Potassium Chloride Carbon Dioxide Anion Gap BUN Creatinine Estim Creat Clear Calc Estimated GFR POC Glucose 112 293 H Random Glucose Estimat Average Glucose Hemoglobin A1c % Calcium Imaging Radiologist's impression: Impressions Renal Ultrasound 10/03/24 16:10 IMPRESSION: 1. Very Limited Doppler exam, essentially nondiagnostic. Patient was unable to understand instructions or hold her breath. We will repeat the examination per the ordering provider, who is aware. 2. Right kidney is normal in appearance sonographically aside from a simple midpole cyst measuring 1.3 cm. Electronically signed by: Elder Walls MD 10/04/2024 09:51 AM EST RP Renal Ultrasound 10/03/24 16:10 IMPRESSION: 1. Very Limited Doppler exam, essentially nondiagnostic. Patient was unable to understand instructions or hold her breath. We will repeat the examination per the ordering provider, who is aware. 2. Right kidney is normal in appearance sonographically aside from a simple midpole cyst measuring 1.3 cm. Electronically signed by: Elder Walls MD 10/04/2024 09:51 AM EST RP Progress Note: A&P Assessment and plan (1) Acute systolic CHF (congestive heart failure): Status: Acute Assessment and Plan: Acute systolic heart failure in this elderly woman with multiple risk factors with diffuse vasculopathy with uncontrolled blood pressure. Imperative to rule out renal artery stenosis as this will impact her medical management as well and may need renal intervention. Continue diuresis with IV drip. Strict intake and output chart needs to be pursued. Continue current antihypertensive, agree with increasing hydralazine to 100 mg t.i.d.. Switch to isosorbide mononitrate 60 mg b.i.d.. Will hold off on other antihypertensives to preserve renal perfusion. Add Jardiance 10 mg to her regimen. Continue monitor renal function as well as electrolytes as well as BNP tomorrow. Discussed with patient's daughter was at bedside about the prognosis and findings. Will continue to follow with you Time Spent With Patient Time: Total time managing care of this patient today ____ minutes. Progress Note: Quality Stroke Does the patient have a stroke diagnosis?: No Procedures Date of Service Date of Service: 10/04/24
[2024-10-04] MEDS: Silver Sulfadiazine 1 % Cream 20 GM TUBE 1 APPL TOPICAL (12:50)
[2024-10-04] MEDS: Insulin Lispro 100 UNIT/ML 3 ML VIAL SUBCUT ×2 (12:50→21:47)
[2024-10-04] MEDS: Furosemide 200 MG in 0.9 % Sodium Chloride 80 ML IVCONT (12:50)
[2024-10-04 15:45] VITALS: BP 172/64; PULSE 62; RESP 16; TEMP 36.7; O2SAT 93
--- NOTE | 2024-10-04 16:01 | P.PNIM_ITS ---
Subjective Subjective Date of Service: 10/04/24 Interval History: seen and examined this morning follow up for chf awake, alert; off oxygen; breathing easier; feeling better Review of Systems Review of Systems: Yes all other systems are reviewed and are negative Constitutional Constitutional: Denies chills and Denies fever(s) Cardiovascular Cardiovascular: Denies chest pain, Denies palpitations and Reports dyspnea Respiratory Respiratory: Denies cough and Reports dyspnea Endocrine Endocrine: Denies palpitations Physical Exam 2 Vital Signs: Vital Signs: Last Vital Signs Temp 98.1 F 10/04/24 15:45 Pulse 62 10/04/24 15:45 Resp 16 10/04/24 15:45 BP 172/64 H 10/04/24 15:45 Pulse Ox 93 10/04/24 15:45 O2 Del Method Room Air 10/04/24 15:45 BMI result Body Mass Index 25.2 Const: General: comfortable, alert and Physically active Nutritional Appearance: average body habitus Resp: Effort & Inspection: normal respiratory effort, able to speak in complete sentences, no respiratory distress and no use of accessory muscles Cardio: Rate: regular rate GI: Inspection: No distended Palpation (GI): Soft to palpation Extrem: Other: s/p right transmetatarsal amputation s/p left bka Objective Data Active Medications Acetaminophen (Acetaminophen 325 Mg Tablet) 650 mg PO Q6H PRN PRN Reason: Pain, Mild 1-3,fever,headache Aspirin (Aspirin 81 Mg Tab.Chew) 81 mg PO DAILY [facility] Last Admin: 10/04/24 09:14 Dose: 81 mg Documented By: RENAN Calcium Carbonate (Calcium Carbonate 750 Mg Tab.Chew) 750 mg PO Q4H PRN PRN Reason: Heartburn Carvedilol (Carvedilol 12.5 Mg Tablet) 12.5 mg PO BID [facility]; Protocol Clopidogrel Bisulfate (Clopidogrel Bisulfate 75 Mg Tablet) 75 mg PO DAILY [facility] Last Admin: 10/04/24 09:13 Dose: 75 mg Documented By: RENAN Dextrose (Dextrose 50 % 25 Gm/50 Ml Syringe) 25 gm IVPUSH Q15M PRN; Protocol PRN Reason: per Hypoglycemia Standing Ord. Empagliflozin (Empagliflozin 10 Mg Tablet) 10 mg PO DAILY [facility] Last Admin: 10/04/24 11:41 Dose: 10 mg Documented By: RENAN Enoxaparin Sodium (Enoxaparin Sodium 30 Mg/0.3 Ml Syringe) 30 mg SUBCUT Q24H [facility] Last Admin: 10/04/24 09:13 Dose: 30 mg Documented By: RENAN Glucose (Glucose Gel 15 Gm Gel..Gram.) 15 gm PO Q15M PRN; Protocol PRN Reason: per Hypoglycemia Standing Ord. Hydralazine HCl (Hydralazine Hcl 50 Mg Tablet) 100 mg PO TID [facility]; Protocol Furosemide 200 mg/ Sodium (Chloride) 100 mls @ 2.5 mls/hr IVCONT .Q24H [facility] Last Admin: 10/04/24 12:50 Dose: 5 mg/hr, 2.5 mls/hr Documented By: RENAN Insulin Human Lispro (Insulin Lispro 100 Unit/Ml 3 Ml Vial) 0 unit SUBCUT QIDACHS [facility]; Protocol Last Admin: 10/04/24 12:50 Dose: 6 unit Documented By: RENAN Isosorbide Mononitrate (Isosorbide Mononitrate 60 Mg Tab.Er.24h) 60 mg PO BID [facility]; Protocol Last Admin: 10/04/24 11:41 Dose: 60 mg Documented By: RENAN Comments: per provider, remove nitro paste prior to admin Magnesium Hydroxide (Milk Of Magnesia 30 Ml Oral.Susp) 30 ml PO DAILY PRN PRN Reason: Constipation Last Admin: 10/04/24 11:41 Dose: 30 ml Documented By: RENAN Melatonin (Melatonin 3 Mg Tablet) 6 mg PO BEDTIME PRN PRN Reason: Insomnia Multivitamins/Vitamin C (Multivitamin Tablet) 1 tab PO DAILY [facility] Last Admin: 10/04/24 09:13 Dose: 1 tab Documented By: RENAN Ondansetron HCl (Ondansetron Hcl 4 Mg/2 Ml Vial) 4 mg IVPUSH Q8H PRN PRN Reason: Nausea and Vomiting Pantoprazole Sodium (Pantoprazole Sodium 20 Mg Tablet.) 40 mg PO DAILY@0630 [facility] Last Admin: 10/04/24 05:45 Dose: 40 mg Documented By: FABY-JIMMY Silver Sulfadiazine (Silver Sulfadiazine 1 % Cream 20 Gm Tube) 1 appl TOPICAL DAILY [facility] Last Admin: 10/04/24 12:50 Dose: 1 appl Documented By: RENAN Sodium Chloride (0.9 % Sodium Chloride Flush 3 Ml Syringe) 3 ml IVFLUSH QSHIFT [facility] Last Admin: 10/04/24 09:29 Dose: Not Given Documented By: RENAN Non-Admin Reason: IV Running Labs 10/03/24 05:28 10/04/24 06:33 Labs: Laboratory Results - last 24 hr 10/03/24 10/03/24 10/04/24 20:13 23:50 04:16 Anion Gap Estim Creat Clear Calc Estimated GFR POC Glucose 168 H 200 H 135 H Random Glucose Calcium 10/04/24 10/04/24 10/04/24 06:33 07:05 11:18 Anion Gap 12 Estim Creat Clear Calc 20.3 Estimated GFR 21 POC Glucose 112 293 H Random Glucose 111 Calcium 9.1 Assessment and Plan (1) CKD (chronic kidney disease) stage 4, GFR 15-29 ml/min: Status: Acute (2) Congestive heart failure: Status: Acute Plan This is a 73-year-old female with pertinent history of peripheral vascular disease status post left BKA, congestive heart failure with reduced ejection fraction, hypertension, insulin-dependent diabetes mellitus, CKD who presents to the emergency department for evaluation of dyspnea. Acute on chronic congestive heart failure with reduced ejection fraction: continue lasix drip - good urine output thus far echo with reduced EF 25-30% sanchez for Strict I's and O's, Low-salt diet Start Jardiance Avoid RONNY/arbs for now Cardiology following will need ischemic workup uncontrolled HTN rule out LIZZETTE - renal doppler ordered but patient was unable to continue the study as when unable to hold breath cardiology/nephrology following will further increase hydralazine to 100 TID increase coreg back to baseline 12.5bid hold nifedipine resume isosorbide for now and stop short acting nitrates follow bp closely ANNIE on CKD3b cardiorenal in the setting of above: SCr down to 2.15 (baseline around 1.6) follow renal function closely Nephrology following hyponatremia likely due to chf improving follow BMP Hypoglycemia in a patient with insulin-dependent diabetes mellitus: Blood sugar improved with p.o. intake. Hba1c 8.1 blood sugar improved, will resume SSI long acting insulin on hold for now Peripheral vascular disease: On dual antiplatelet therapy and statin s/p right transmetatarsal amputation with non healing amputation site (due to PVD) followed by vascular surgery sent photo - reported to be stable from previous office visit - rec to continue alginate, 4x4, foam pad, and kerlix wraps dvt ppx - lovenox Requires ongoing inpatient stay for management of acute CHF, uncontrolled hypertension Quality Stroke Does the patient have a stroke diagnosis?: No VTE Prior VTE?: No VTE Risk Level:: Medical - moderate - high VTE Device Contraindication: Treatment Not Indicated VTE Drug Contraindication: N/A - Med Ordered
--- NOTE | 2024-10-04 16:07 | PM.PNNEP ---
Subjective Subjective Date of Service: 10/04/24 Principal diagnosis: Decompensated systolic heart failure, uncontrolled hypertension Interval history: Feels improved; D/W hospitalist and director of sales marketing Physical Exam Vital Signs: Vital Signs: Last Vital Signs Temp 98.1 F 10/04/24 15:45 Pulse 62 10/04/24 15:45 Resp 16 10/04/24 15:45 BP 172/64 H 10/04/24 15:45 Pulse Ox 93 10/04/24 15:45 O2 Del Method Room Air 10/04/24 15:45 BMI result Body Mass Index 25.2 Const: General: no acute distress Orientation/consciousness: patient oriented x3 Eyes: EOM: EOMs intact bilaterally Resp: Auscultation: diminished lung sounds Cardio: Rate: regular rate GI: Palpation (GI): Soft to palpation Neuro: General: patient oriented x3 Objective Data Labs 10/03/24 05:28 10/04/24 06:33 Labs: Laboratory Results - last 24 hr 10/03/24 10/03/24 10/04/24 20:13 23:50 04:16 Sodium Potassium Chloride Carbon Dioxide Anion Gap BUN Creatinine Estim Creat Clear Calc Estimated GFR POC Glucose 168 H 200 H 135 H Random Glucose Calcium 10/04/24 10/04/24 10/04/24 06:33 07:05 11:18 Sodium 134 L Potassium 4.1 Chloride 101 Carbon Dioxide 25 Anion Gap 12 BUN 51 H Creatinine 2.31 H Estim Creat Clear Calc 20.3 Estimated GFR 21 POC Glucose 112 293 H Random Glucose 111 Calcium 9.1 Procedures Date of Service Date of Service: 10/04/24 Assessment & Plan Assessment and plan (1) Acute kidney injury: Status: Acute (2) CKD (chronic kidney disease) stage 4, GFR 15-29 ml/min: Status: Acute Plan Belkys has ANNIE due to CR syndrome Serum creatinine fairly stable; Added nitrates Medications being optimized; Cardiology F/U Blood pressure needs to be better controlled No ACEI/ARB for now. Labs AM Progress Note: Quality Stroke Does the patient have a stroke diagnosis?: No
[2024-10-04 16:20] LABS: Glucose, Whole Blood 120 mg/dL (60-115)
[2024-10-04 19:18] VITALS: BP 148/67; PULSE 66; RESP 16; TEMP 36.4; O2SAT 92
[2024-10-04] MEDS: carvediloL 12.5 MG TABLET PO (20:36)
[2024-10-04 20:40] LABS: Glucose, Whole Blood 235 mg/dL (60-115)
[2024-10-04 23:54] VITALS: BP 148/68; PULSE 67; RESP 14; TEMP 37.1; O2SAT 95
[2024-10-05] VITALS (8 sets, daily range): BP systolic 149–187; BP diastolic 60–81; PULSE 58–65; RESP 14–18; TEMP 36.3–37.1; O2SAT 92–95; BMI 23.8
[2024-10-05 07:20] LABS: Glucose, Whole Blood 141 mg/dL (60-115)
[2024-10-05] MEDS: Multivitamin TABLET 1 TAB PO (08:14)
[2024-10-05] MEDS: Aspirin 81 MG TAB.CHEW PO (08:14)
[2024-10-05] MEDS: Pantoprazole Sodium 20 MG TABLET.DR 40 MG PO (08:14)
[2024-10-05] MEDS: Enoxaparin Sodium 30 MG/0.3 ML SYRINGE SUBCUT (08:15)
[2024-10-05] MEDS: Empagliflozin 10 MG TABLET PO (08:15)
[2024-10-05] MEDS: Isosorbide Mononitrate 60 MG TAB.ER.24H PO ×2 (08:15→20:42)
[2024-10-05] MEDS: carvediloL 12.5 MG TABLET PO (08:15)
[2024-10-05] MEDS: hydrALAZINE HCl 50 MG TABLET 100 MG PO ×3 (08:15→20:44)
[2024-10-05] MEDS: Clopidogrel Bisulfate 75 MG TABLET PO (08:15)
[2024-10-05] MEDS: Silver Sulfadiazine 1 % Cream 20 GM TUBE 1 APPL TOPICAL (08:29)
[2024-10-05 08:52] LABS: Anion Gap 13 (12-20); Blood Urea Nitrogen 52 mg/dL (9-16); Calcium 9.3 mg/dL (8.4-10.2); Carbon Dioxide 28 mmol/L (22-29); Chloride 98 mmol/L (96-108); Creatinine Clr Calc Pharmacy 16.3; Estimated Glomerular Filt Rate 18; Glucose Random 142 mg/dL (60-115); Potassium 4.3 mmol/L (3.3-5.1); Sodium 135 mmol/L (135-145)
[2024-10-05 08:54] LABS: B Type Natriuretic Peptide 312 pg/mL (<100)
--- NOTE | 2024-10-05 11:16 | PM.PNCARD ---
Subjective Subjective Date of Service: 10/05/24 Principal diagnosis: Decompensated systolic heart failure, uncontrolled hypertension Interval history: Patient feeling a lot better. Has diuresed well. Her creatinine has increased with diuresis. Blood pressure is better controlled at this point in time. Remains in AV dual paced rhythm Review of Systems Constitutional: Reports no additional constitutional complaints Cardiovascular: Denies chest pain, Denies leg edema, Reports lightheadedness (Mild lightheadedness sitting up), Denies Loss of Consciousness and Denies orthopnea Respiratory: Denies cough Physical Exam Vital Signs: Last Vital Signs Temp 98.3 F 10/05/24 11:05 Pulse 59 10/05/24 11:05 Resp 18 10/05/24 11:05 BP 150/70 H 10/05/24 11:05 Pulse Ox 93 10/05/24 11:05 O2 Del Method Room Air 10/05/24 11:05 BMI result Body Mass Index 23.8 Const General: cooperative, comfortable, no acute distress, alert and awake Nutritional Appearance: thin Orientation/consciousness: patient oriented x3 Neck Neck: Yes trachea midline, Yes supple and Yes no JVD Resp Effort & Inspection: decreased respiratory effort Auscultation: no rales, no wheezes and diminished lung sounds Cardio Jugular venous distension: no JVD Palpation: abnormal PMI displaced PMI Rate: regular rate Rhythm: regular rhythm Heart sounds: S1 normal heart sound present, S2 normal heart sound present, no click, no gallops, no murmurs and no rubs GI Inspection: Yes distended Auscultation: normal bowel sounds Skin General skin exam: no rashes or lesions noted Neuro General: patient oriented x3 and no focal motor deficits Extrem General: No clubbing, No cyanosis and Yes edema Objective Labs and Meds 10/03/24 05:28 10/05/24 07:57 Lab results: Laboratory Results - last 24 hr 10/04/24 10/04/24 10/04/24 11:18 16:16 20:33 Sodium Potassium Chloride Carbon Dioxide Anion Gap BUN Creatinine Estim Creat Clear Calc Estimated GFR POC Glucose 293 H 120 H 235 H Random Glucose Calcium B-Natriuretic Peptide 10/05/24 10/05/24 07:06 07:57 Sodium 135 Potassium 4.3 Chloride 98 Carbon Dioxide 28 Anion Gap 13 BUN 52 H Creatinine 2.64 H Estim Creat Clear Calc 16.3 Estimated GFR 18 POC Glucose 141 H Random Glucose 142 H Calcium 9.3 B-Natriuretic Peptide 312 H Progress Note: A&P Assessment and plan (1) Acute systolic CHF (congestive heart failure): Status: Acute Assessment and Plan: Acute decompensated congestive heart failure with aggressive diuresis which has probably led to some bump in the creatinine. He is doing a lot better. Can switch to oral diuretic with bumetanide 1 mg b.i.d.. CHF education needs to be provided especially with the patient then especially to her kids to help her manage her heart failure situation. Continue hydralazine 100 mg t.i.d. as well as Imdur 60 mg b.i.d. for afterload/vasodilators therapy. Increase carvedilol to 25 mg b.i.d.. Will need further ischemic workup as outpatient as her kidney function stabilized and most likely will be pursued as an outpatient. Out of bed to chair and incentive spirometry. Continue strict intake and output chart and monitor BNP tomorrow. Anticipate discharge tomorrow. Will set up for follow-up as outpatient if she is interested in following locally. Time Spent With Patient Time: Total time managing care of this patient today ____ minutes. Progress Note: Quality Stroke Does the patient have a stroke diagnosis?: No Procedures Date of Service Date of Service: 10/05/24
[2024-10-05 11:18] LABS: Glucose, Whole Blood 292 mg/dL (60-115)
--- NOTE | 2024-10-05 11:32 | HO.PM.IMPN ---
Subjective Subjective Date of Service: 10/05/24 Interval History: seen and examined this morning follow up for chf awake, alert; off oxygen; breathing easier; feeling better Review of Systems Review of Systems: Yes all other systems are reviewed and are negative Constitutional Constitutional: Denies chills and Denies fever(s) Cardiovascular Cardiovascular: Denies chest pain, Denies palpitations and Reports dyspnea Respiratory Respiratory: Denies cough and Reports dyspnea Endocrine Endocrine: Denies palpitations Physical Exam Vital Signs: Vital Signs: Last Vital Signs Temp 98.3 F 10/05/24 11:05 Pulse 59 10/05/24 11:05 Resp 18 10/05/24 11:05 BP 150/70 H 10/05/24 11:05 Pulse Ox 93 10/05/24 11:05 O2 Del Method Room Air 10/05/24 11:05 BMI result Body Mass Index 23.8 Appearing in no acute distress lung sounds are clear to auscultation heart regular rate rhythm, clear S1, S2 positive bowel sounds, abdomen is soft, nontender neuro patient is alert x3, no focal deficits Objective Data Active Medications Acetaminophen (Acetaminophen 325 Mg Tablet) 650 mg PO Q6H PRN PRN Reason: Pain, Mild 1-3,fever,headache Aspirin (Aspirin 81 Mg Tab.Chew) 81 mg PO DAILY [facility] Last Admin: 10/05/24 08:14 Dose: 81 mg Documented By: CALE Calcium Carbonate (Calcium Carbonate 750 Mg Tab.Chew) 750 mg PO Q4H PRN PRN Reason: Heartburn Carvedilol (Carvedilol 12.5 Mg Tablet) 12.5 mg PO BID [facility]; Protocol Last Admin: 10/05/24 08:15 Dose: 12.5 mg Documented By: CALE Clopidogrel Bisulfate (Clopidogrel Bisulfate 75 Mg Tablet) 75 mg PO DAILY [facility] Last Admin: 10/05/24 08:15 Dose: 75 mg Documented By: CALE Dextrose (Dextrose 50 % 25 Gm/50 Ml Syringe) 25 gm IVPUSH Q15M PRN; Protocol PRN Reason: per Hypoglycemia Standing Ord. Empagliflozin (Empagliflozin 10 Mg Tablet) 10 mg PO DAILY [facility] Last Admin: 10/05/24 08:15 Dose: 10 mg Documented By: CALE Enoxaparin Sodium (Enoxaparin Sodium 30 Mg/0.3 Ml Syringe) 30 mg SUBCUT Q24H [facility] Last Admin: 10/05/24 08:15 Dose: 30 mg Documented By: CALE Glucose (Glucose Gel 15 Gm Gel..Gram.) 15 gm PO Q15M PRN; Protocol PRN Reason: per Hypoglycemia Standing Ord. Hydralazine HCl (Hydralazine Hcl 50 Mg Tablet) 100 mg PO TID [facility]; Protocol Last Admin: 10/05/24 08:15 Dose: 100 mg Documented By: CALE Furosemide 200 mg/ Sodium (Chloride) 100 mls @ 2.5 mls/hr IVCONT .Q24H [facility] Last Admin: 10/04/24 12:50 Dose: 5 mg/hr, 2.5 mls/hr Documented By: RENAN Insulin Human Lispro (Insulin Lispro 100 Unit/Ml 3 Ml Vial) 0 unit SUBCUT QIDACHS [facility]; Protocol Last Admin: 10/05/24 07:27 Dose: Not Given Documented By: CALE Non-Admin Reason: No Insulin Coverage Isosorbide Mononitrate (Isosorbide Mononitrate 60 Mg Tab.Er.24h) 60 mg PO BID [facility]; Protocol Last Admin: 10/05/24 08:15 Dose: 60 mg Documented By: CALE Magnesium Hydroxide (Milk Of Magnesia 30 Ml Oral.Susp) 30 ml PO DAILY PRN PRN Reason: Constipation Last Admin: 10/04/24 11:41 Dose: 30 ml Documented By: RENAN Melatonin (Melatonin 3 Mg Tablet) 6 mg PO BEDTIME PRN PRN Reason: Insomnia Multivitamins/Vitamin C (Multivitamin Tablet) 1 tab PO DAILY [facility] Last Admin: 10/05/24 08:14 Dose: 1 tab Documented By: CALE Ondansetron HCl (Ondansetron Hcl 4 Mg/2 Ml Vial) 4 mg IVPUSH Q8H PRN PRN Reason: Nausea and Vomiting Pantoprazole Sodium (Pantoprazole Sodium 20 Mg Tablet.Dr) 40 mg PO DAILY@0630 [facility] Last Admin: 10/05/24 08:14 Dose: 40 mg Documented By: CALE Silver Sulfadiazine (Silver Sulfadiazine 1 % Cream 20 Gm Tube) 1 appl TOPICAL DAILY [facility] Last Admin: 10/05/24 08:29 Dose: 1 appl Documented By: CALE Sodium Chloride (0.9 % Sodium Chloride Flush 3 Ml Syringe) 3 ml IVFLUSH QSHIFT [facility] Last Admin: 10/05/24 08:27 Dose: Not Given Documented By: CALE Non-Admin Reason: IV Running Labs 10/03/24 05:28 10/05/24 07:57 Labs: Laboratory Results - last 24 hr 10/04/24 10/04/24 10/05/24 16:16 20:33 07:06 Anion Gap Estim Creat Clear Calc Estimated GFR POC Glucose 120 H 235 H 141 H Random Glucose Calcium B-Natriuretic Peptide 10/05/24 10/05/24 07:57 11:08 Anion Gap 13 Estim Creat Clear Calc 16.3 Estimated GFR 18 POC Glucose 292 H Random Glucose 142 H Calcium 9.3 B-Natriuretic Peptide 312 H Assessment and Plan (1) CKD (chronic kidney disease) stage 4, GFR 15-29 ml/min: Status: Acute (2) Congestive heart failure: Status: Acute Plan This is a 73-year-old female with pertinent history of peripheral vascular disease status post left BKA, congestive heart failure with reduced ejection fraction, hypertension, insulin-dependent diabetes mellitus, CKD who presents to the emergency department for evaluation of dyspnea. Acute on chronic congestive heart failure with reduced ejection fraction: s/p lasix drip - good urine output thus far echo with reduced EF 25-30% sanchez for Strict I's and O's, Low-salt diet continue Jardiance Avoid RONNY/arbs for now Cardiology following rec> start Bumex 1 mg BID, increase coreg to 25 mg BID will need ischemic workup uncontrolled HTN. Resolving rule out LIZZETTE - renal doppler ordered but patient was unable to continue the study as when unable to hold breath cardiology/nephrology following hold nifedipine hydralazine to 100 TID, resume isosorbide for now and stop short acting nitrates follow bp closely ANNIE on CKD3b cardiorenal in the setting of above SCr 2.64 (baseline around 1.6) follow renal function closely Nephrology following Hyponatremia likely due to chf improving follow BMP Hypoglycemia in a patient with insulin-dependent diabetes mellitus: Blood sugar improved with p.o. intake. Hba1c 8.1 blood sugar improved, will resume SSI long acting insulin on hold for now Peripheral vascular disease: On dual antiplatelet therapy and statin s/p right transmetatarsal amputation with non healing amputation site (due to PVD) followed by vascular surgery sent photo - reported to be stable from previous office visit - rec to continue alginate, 4x4, foam pad, and kerlix wraps dvt ppx - lovenox Requires ongoing inpatient stay for management of acute CHF, uncontrolled hypertension Quality Stroke Does the patient have a stroke diagnosis?: No VTE Prior VTE?: No VTE Risk Level:: Medical - moderate - high VTE Device Contraindication: Treatment Not Indicated VTE Drug Contraindication: N/A - Med Ordered
[2024-10-05] MEDS: Bumetanide 1 MG TABLET PO (11:55)
[2024-10-05] MEDS: Insulin Lispro 100 UNIT/ML 3 ML VIAL SUBCUT ×3 (11:56→20:44)
--- NOTE | 2024-10-05 16:18 | PC.NURSE ---
sanchez removed at 1600 per order, pt dt void at 2200 to 00:00 10/06/24
[2024-10-05 16:30] LABS: Glucose, Whole Blood 303 mg/dL (60-115)
[2024-10-05 20:38] LABS: Glucose, Whole Blood 217 mg/dL (60-115)
[2024-10-05] MEDS: carvediloL 25 MG TABLET PO (20:44)
[2024-10-05] MEDS: 0.9 % Sodium Chloride Flush 3 ML SYRINGE IVFLUSH (20:45)
[2024-10-06] VITALS (9 sets, daily range): BP systolic 140–171; BP diastolic 59–78; PULSE 60–77; RESP 14–18; TEMP 36.2–36.9; O2SAT 94–97; BMI 23.8
[2024-10-06] MEDS: Pantoprazole Sodium 20 MG TABLET.DR 40 MG PO (05:23)
[2024-10-06 07:53] LABS: Glucose, Whole Blood 141 mg/dL (60-115)
[2024-10-06] MEDS: Aspirin 81 MG TAB.CHEW PO (07:55)
[2024-10-06] MEDS: Multivitamin TABLET 1 TAB PO (07:57)
[2024-10-06] MEDS: Clopidogrel Bisulfate 75 MG TABLET PO (07:57)
[2024-10-06] MEDS: hydrALAZINE HCl 50 MG TABLET 100 MG PO ×3 (07:59→19:55)
[2024-10-06] MEDS: carvediloL 25 MG TABLET PO ×2 (07:59→19:54)
[2024-10-06] MEDS: Isosorbide Mononitrate 60 MG TAB.ER.24H PO ×2 (07:59→19:54)
[2024-10-06] MEDS: Empagliflozin 10 MG TABLET PO (08:00)
[2024-10-06] MEDS: Bumetanide 1 MG TABLET PO ×2 (08:00→11:57)
[2024-10-06] MEDS: Enoxaparin Sodium 30 MG/0.3 ML SYRINGE SUBCUT (08:01)
[2024-10-06] MEDS: Silver Sulfadiazine 1 % Cream 20 GM TUBE 1 APPL TOPICAL (08:19)
[2024-10-06] MEDS: 0.9 % Sodium Chloride Flush 3 ML SYRINGE IVFLUSH ×3 (08:20→19:55)
[2024-10-06 09:27] LABS: Anion Gap 16 (12-20); Blood Urea Nitrogen 54 mg/dL (9-16); Carbon Dioxide 27 mmol/L (22-29); Chloride 94 mmol/L (96-108); Creatinine Clr Calc Pharmacy 14.3; Estimated Glomerular Filt Rate 15; Glucose Random 176 mg/dL (60-115); Potassium 4.7 mmol/L (3.3-5.1); Sodium 132 mmol/L (135-145)
[2024-10-06 09:34] LABS: B Type Natriuretic Peptide 202 pg/mL (<100)
--- NOTE | 2024-10-06 09:59 | P.PNIM_ITS ---
Subjective Subjective Date of Service: 10/06/24 Interval History: seen and examined this morning follow up for chf awake, alert; off oxygen; breathing easier; feeling better Review of Systems Review of Systems: Yes all other systems are reviewed and are negative Constitutional Constitutional: Denies chills and Denies fever(s) Cardiovascular Cardiovascular: Denies chest pain, Denies palpitations and Reports dyspnea Respiratory Respiratory: Denies cough and Reports dyspnea Endocrine Endocrine: Denies palpitations Physical Exam 2 Vital Signs: Vital Signs: Last Vital Signs Temp 98.4 F 10/06/24 08:00 Pulse 65 10/06/24 08:00 Resp 16 10/06/24 08:00 BP 147/62 H 10/06/24 08:00 Pulse Ox 95 10/06/24 08:00 O2 Del Method Room Air 10/06/24 08:00 BMI result Body Mass Index 23.8 Objective Data Active Medications Acetaminophen (Acetaminophen 325 Mg Tablet) 650 mg PO Q6H PRN PRN Reason: Pain, Mild 1-3,fever,headache Aspirin (Aspirin 81 Mg Tab.Chew) 81 mg PO DAILY [facility] Last Admin: 10/06/24 07:55 Dose: 81 mg Documented By: CALE Bumetanide (Bumetanide 1 Mg Tablet) 1 mg PO BID@0800,1200 [facility]; Protocol Last Admin: 10/06/24 08:00 Dose: 1 mg Documented By: CALE Calcium Carbonate (Calcium Carbonate 750 Mg Tab.Chew) 750 mg PO Q4H PRN PRN Reason: Heartburn Carvedilol (Carvedilol 25 Mg Tablet) 25 mg PO BID [facility]; Protocol Last Admin: 10/06/24 07:59 Dose: 25 mg Documented By: CALE Clopidogrel Bisulfate (Clopidogrel Bisulfate 75 Mg Tablet) 75 mg PO DAILY [facility] Last Admin: 10/06/24 07:57 Dose: 75 mg Documented By: CALE Dextrose (Dextrose 50 % 25 Gm/50 Ml Syringe) 25 gm IVPUSH Q15M PRN; Protocol PRN Reason: per Hypoglycemia Standing Ord. Empagliflozin (Empagliflozin 10 Mg Tablet) 10 mg PO DAILY [facility] Last Admin: 10/06/24 08:00 Dose: 10 mg Documented By: CALE Enoxaparin Sodium (Enoxaparin Sodium 30 Mg/0.3 Ml Syringe) 30 mg SUBCUT Q24H [facility] Last Admin: 10/06/24 08:01 Dose: 30 mg Documented By: CALE Glucose (Glucose Gel 15 Gm Gel..Gram.) 15 gm PO Q15M PRN; Protocol PRN Reason: per Hypoglycemia Standing Ord. Hydralazine HCl (Hydralazine Hcl 50 Mg Tablet) 100 mg PO TID [facility]; Protocol Last Admin: 10/06/24 07:59 Dose: 100 mg Documented By: CALE Insulin Human Lispro (Insulin Lispro 100 Unit/Ml 3 Ml Vial) 0 unit SUBCUT QIDACHS [facility]; Protocol Last Admin: 10/06/24 07:54 Dose: Not Given Documented By: CALE Non-Admin Reason: No Insulin Coverage Isosorbide Mononitrate (Isosorbide Mononitrate 60 Mg Tab.Er.24h) 60 mg PO BID [facility]; Protocol Last Admin: 10/06/24 07:59 Dose: 60 mg Documented By: CALE Magnesium Hydroxide (Milk Of Magnesia 30 Ml Oral.Susp) 30 ml PO DAILY PRN PRN Reason: Constipation Last Admin: 10/04/24 11:41 Dose: 30 ml Documented By: RENAN Melatonin (Melatonin 3 Mg Tablet) 6 mg PO BEDTIME PRN PRN Reason: Insomnia Multivitamins/Vitamin C (Multivitamin Tablet) 1 tab PO DAILY [facility] Last Admin: 10/06/24 07:57 Dose: 1 tab Documented By: CALE Ondansetron HCl (Ondansetron Hcl 4 Mg/2 Ml Vial) 4 mg IVPUSH Q8H PRN PRN Reason: Nausea and Vomiting Pantoprazole Sodium (Pantoprazole Sodium 20 Mg Tablet.Dr) 40 mg PO DAILY@0630 [facility] Last Admin: 10/06/24 05:23 Dose: 40 mg Documented By: DAXA Silver Sulfadiazine (Silver Sulfadiazine 1 % Cream 20 Gm Tube) 1 appl TOPICAL DAILY [facility] Last Admin: 10/06/24 08:19 Dose: 1 appl Documented By: CALE Sodium Chloride (0.9 % Sodium Chloride Flush 3 Ml Syringe) 3 ml IVFLUSH QSHIFT [facility] Last Admin: 10/06/24 08:20 Dose: 3 ml Documented By: CALE Labs 10/03/24 05:28 10/06/24 08:47 Labs: Laboratory Results - last 24 hr 10/05/24 10/05/24 10/05/24 11:08 16:25 20:27 Anion Gap Estim Creat Clear Calc Estimated GFR POC Glucose 292 H 303 H 217 H Random Glucose Calcium B-Natriuretic Peptide 10/06/24 10/06/24 07:30 08:47 Anion Gap 16 Estim Creat Clear Calc 14.3 Estimated GFR 15 POC Glucose 141 H Random Glucose 176 H Calcium 9.0 B-Natriuretic Peptide 202 H Assessment and Plan (1) CKD (chronic kidney disease) stage 4, GFR 15-29 ml/min: Status: Acute (2) Congestive heart failure: Status: Acute Plan This is a 73-year-old female with pertinent history of peripheral vascular disease status post left BKA, congestive heart failure with reduced ejection fraction, hypertension, insulin-dependent diabetes mellitus, CKD who presents to the emergency department for evaluation of dyspnea. ANNIE on CKD3b cardiorenal in the setting of above SCr 3.02 (baseline around 1.6) Nephrology following> better BP control, amlodipine 2.5 mg added, recheck BMP in am Acute on chronic congestive heart failure with reduced ejection fraction: s/p lasix drip - good urine output thus far echo with reduced EF 25-30% sanchez for Strict I's and O's, Low-salt diet continue Jardiance Cardiology following rec> start Bumex 1 mg BID, increase coreg to 25 mg BID will need ischemic workup o/p Uncontrolled HTN. Resolving rule out LIZZETTE - renal doppler ordered but patient was unable to continue the study as when unable to hold breath cardiology/nephrology following hydralazine to 100 TID, isosorbide amlodipine 2.5 mg added follow bp closely Hyponatremia. mild likely due to chf improving follow BMP Hypoglycemia in a patient with insulin-dependent diabetes mellitus: Blood sugar improved with p.o. intake. Hba1c 8.1 blood sugar improved, will resume SSI long acting insulin on hold for now Peripheral vascular disease: On dual antiplatelet therapy and statin s/p right transmetatarsal amputation with non healing amputation site (due to PVD) followed by vascular surgery sent photo - reported to be stable from previous office visit - rec to continue alginate, 4x4, foam pad, and kerlix wraps dvt ppx - lovenox full code Requires ongoing inpatient stay for management of acute CHF, uncontrolled hypertension Quality Stroke Does the patient have a stroke diagnosis?: No VTE Prior VTE?: No VTE Risk Level:: Medical - moderate - high VTE Device Contraindication: Treatment Not Indicated VTE Drug Contraindication: N/A - Med Ordered
[2024-10-06] MEDS: Insulin Lispro 100 UNIT/ML 3 ML VIAL SUBCUT ×3 (11:57→19:55)
[2024-10-06] MEDS: amLODIPine Besylate 2.5 MG TABLET PO (11:57)
--- NOTE | 2024-10-06 12:07 | PM.PNCARD ---
Subjective Subjective Date of Service: 10/06/24 Principal diagnosis: Decompensated systolic heart failure, uncontrolled hypertension Interval history: Blood pressure still remains mildly elevated would med better controlled. CHF is much better control. Creatinine is further elevated in the 3 range. Review of Systems Review of Systems Yes all other systems are reviewed and are negative Physical Exam Vital Signs: Last Vital Signs Temp 97.5 F 10/06/24 11:29 Pulse 68 10/06/24 11:29 Resp 14 10/06/24 11:29 BP 145/59 H 10/06/24 11:29 Pulse Ox 95 10/06/24 11:29 O2 Del Method Room Air 10/06/24 11:29 BMI result Body Mass Index 23.8 Const General: cooperative, comfortable, no acute distress, alert and awake Nutritional Appearance: thin Orientation/consciousness: patient oriented x3 Neck Neck: Yes trachea midline, Yes supple and Yes no JVD Resp Effort & Inspection: decreased respiratory effort Auscultation: no rales, no wheezes and diminished lung sounds Cardio Jugular venous distension: no JVD Palpation: abnormal PMI displaced PMI Rate: regular rate Rhythm: regular rhythm Heart sounds: S1 normal heart sound present, S2 normal heart sound present, no click, no gallops, no murmurs and no rubs GI Inspection: Yes distended Auscultation: normal bowel sounds Skin General skin exam: no rashes or lesions noted Neuro General: patient oriented x3 and no focal motor deficits Extrem General: No clubbing, No cyanosis and Yes edema Objective Labs and Meds 10/03/24 05:28 10/06/24 08:47 Lab results: Laboratory Results - last 24 hr 10/05/24 10/05/24 10/06/24 16:25 20:27 07:30 Sodium Potassium Chloride Carbon Dioxide Anion Gap BUN Creatinine Estim Creat Clear Calc Estimated GFR POC Glucose 303 H 217 H 141 H Random Glucose Calcium B-Natriuretic Peptide 10/06/24 08:47 Sodium 132 L Potassium 4.7 Chloride 94 L Carbon Dioxide 27 Anion Gap 16 BUN 54 H Creatinine 3.02 H Estim Creat Clear Calc 14.3 Estimated GFR 15 POC Glucose Random Glucose 176 H Calcium 9.0 B-Natriuretic Peptide 202 H Progress Note: A&P Assessment and plan (1) Acute systolic CHF (congestive heart failure): Status: Acute Assessment and Plan: Decompensated systolic heart failure with LV systolic dysfunction of unclear etiology question ischemic which is highly likely, pacemaker mediated cardiomyopathy, potentially related cardiomyopathy. Will need further workup most likely cardiac catheterization although her creatinine is increasing. Would like to stabilize her creatinine prior to committing her to cardiac catheterization. Continue aggressive blood pressure control. Add amlodipine 2.5 mg to regimen. Continue other drugs including hydralazine as well as isosorbide and Coreg. CHF education to be provided. Will sign of the case. If patient wants to follow locally we can follow her in the clinic. Please let us know Time Spent With Patient Time: Total time managing care of this patient today ____ minutes. Progress Note: Quality Stroke Does the patient have a stroke diagnosis?: No Procedures Date of Service Date of Service: 10/06/24
[2024-10-06 12:26] LABS: Glucose, Whole Blood 205 mg/dL (60-115)
[2024-10-06 16:00] LABS: Glucose, Whole Blood 219 mg/dL (60-115)
[2024-10-06 19:56] LABS: Glucose, Whole Blood 209 mg/dL (60-115)
[2024-10-07] VITALS: BP 160/68; PULSE 64; RESP 18; TEMP 36.2; O2SAT 97
[2024-10-07 00:41] VITALS: PULSE 60; RESP 18
[2024-10-07 06:00] VITALS: BMI 24.1
[2024-10-07] MEDS: Pantoprazole Sodium 20 MG TABLET.DR 40 MG PO (06:22)
[2024-10-07 07:17] LABS: Anion Gap 17 (12-20); Blood Urea Nitrogen 59 mg/dL (9-16); Calcium 9.1 mg/dL (8.4-10.2); Carbon Dioxide 27 mmol/L (22-29); Chloride 95 mmol/L (96-108); Creatinine Clr Calc Pharmacy 14.1; Estimated Glomerular Filt Rate 15; Glucose Random 116 mg/dL (60-115); Sodium 135 mmol/L (135-145)
[2024-10-07 07:36] VITALS: BP 138/72; PULSE 63; RESP 16; TEMP 37.4; O2SAT 94
[2024-10-07 07:42] LABS: Glucose, Whole Blood 130 mg/dL (60-115)
[2024-10-07] MEDS: amLODIPine Besylate 2.5 MG TABLET PO (10:01)
[2024-10-07] MEDS: Clopidogrel Bisulfate 75 MG TABLET PO (10:01)
[2024-10-07] MEDS: hydrALAZINE HCl 50 MG TABLET 100 MG PO (10:01)
[2024-10-07] MEDS: Empagliflozin 10 MG TABLET PO (10:01)
[2024-10-07] MEDS: Enoxaparin Sodium 30 MG/0.3 ML SYRINGE SUBCUT (10:02)
[2024-10-07] MEDS: carvediloL 25 MG TABLET PO (10:02)
[2024-10-07] MEDS: Bumetanide 1 MG TABLET PO ×2 (10:02→12:08)
[2024-10-07] MEDS: Multivitamin TABLET 1 TAB PO (10:02)
[2024-10-07] MEDS: Isosorbide Mononitrate 60 MG TAB.ER.24H PO (10:02)
[2024-10-07] MEDS: Aspirin 81 MG TAB.CHEW PO (10:02)
[2024-10-07] MEDS: 0.9 % Sodium Chloride Flush 3 ML SYRINGE IVFLUSH (10:04)
--- NOTE | 2024-10-07 10:22 | MHC.CM.PN ---
Addendum entered by Edwige Rosario RN 10/07/24 10:23: IMM delivered. Original Note: Per hospitalist, patient medically cleared to dc home w/ resumption of [facility] and [facility] services. Tina HOFFMAN notified of dc. Son will transport home ~1130 am. RN aware.
[2024-10-07] MEDS: Silver Sulfadiazine 1 % Cream 20 GM TUBE 1 APPL TOPICAL (10:34)
[2024-10-07 11:04] VITALS: BP 138/64; PULSE 61; RESP 18; TEMP 36.9; O2SAT 95
[2024-10-07 11:15] LABS: Glucose, Whole Blood 267 mg/dL (60-115)
--- NOTE | 2024-10-07 11:26 | P.DS_ITS ---
DS: Providers Provider Date of Service: 10/07/24 Date of admission: 10/03/24 00:36 Date of discharge: 10/07/24 Primary care physician: Afua Leblanc Consults: 10/03/24 00:36 Consult to Nephrology Routine Consulting [place] [facility] Reason for consultation: ANNIE 10/03/24 09:42 Consult to Cardiology Routine Consulting Provider: [facility] Reason for consultation: chf 10/03/24 09:52 Consult to Wound Care Routine Reason for consultation: right foot wound 10/04/24 12:16 Consult to Wound Care Routine Reason for consultation: non-healing wound R foot DS: Diagnosis Discharge Diagnosis (1) Acute systolic CHF (congestive heart failure): Status: Acute DS: Summary Hospital Course Hospital Course: HP as per admitting provider. This is a 73-year-old female with pertinent history of peripheral vascular disease status post left BKA, congestive heart failure with reduced ejection fraction, hypertension, insulin-dependent diabetes mellitus, CKD who presents to the emergency department for evaluation of dyspnea. Patient states she has been having dyspnea which is worse with exertion that has been ongoing for the last few days. Also admits PND. Patient called clothing trades workers's office who asked the patient to come to the ER for IV diuresis. No cough. No fever, chills, dyspnea, palpitations, abdominal pain, changes in urinary or bowel habits. Patient is Creole speaking and history obtained with the help of son and RN at bedside. In the emergency department, imaging with interstitial edema and BNP found to be elevated. Also blood glucose found to be 40 ANNIE on CKD3b. cardiorenal in the setting of above . SCr peaked at 3.05. Nephrology following> better BP control, amlodipine 2.5 mg added. Follow up with nephrology o/p Acute on chronic congestive heart failure with reduced ejection fraction: s/p lasix drip - good urine output thus far . echo with reduced EF 25-30%. continue Jardiance Cardiology following rec> Bumex 1 mg BID, increased coreg to 25 mg BID. will need ischemic workup o/p Uncontrolled HTN. Resolved. renal doppler ordered but patient was unable to continue the study as when unable to hold breath. cardiology/nephrology following hydralazine to 100 TID, isosorbide, amlodipine 2.5 mg added Hyponatremia. mild. likely due to chf Hypoglycemia in a patient with insulin-dependent diabetes mellitus: Blood sugar improved with p.o. intake. Hba1c 8.1. blood sugar improved, will resume SSI. continue home meds Peripheral vascular disease: On dual antiplatelet therapy and statin s/p right transmetatarsal amputation with non healing amputation site (due to PVD). followed by vascular surgery. rec to continue alginate, 4x4, foam pad, and kerlix wraps Time Attestation Discharge Coordination Time (in mins): 42 Quality: Safe Use of Opioids Does Pt have an Active Cancer Diagnosis on the Problem List?: No Quality: Stroke Does the patient have a stroke diagnosis?: No Physical Exam Vital Signs: Vital Signs: Last Vital Signs Temp 98.4 F 10/07/24 11:04 Pulse 61 10/07/24 11:04 Resp 18 10/07/24 11:04 BP 138/64 10/07/24 11:04 Pulse Ox 95 10/07/24 11:04 O2 Del Method Room Air 10/07/24 11:04 FiO2 90 10/07/24 00:41 BMI result Body Mass Index 24.1 Appearing in no acute distress head is normocephalic atraumatic eyes pupils are PERRLA sclera is anicteric mouth throat mucous membranes are intact and moist neck is supple no lymphadenopathy, no JVD noted lung sounds are clear to auscultation heart regular rate rhythm, clear S1, S2 positive bowel sounds, abdomen is soft, nontender neuro patient is alert x3, no focal deficits DS: Data Data Completed and Pending Completed studies during hospitalization [Text1]: Procedures Detachment at Right Foot, Complete 1st Ray, Open Approach (08/24/23) Detachment at Right Foot, Complete 2nd Ray, Open Approach (08/24/23) Detachment at Right Foot, Complete 3rd Ray, Open Approach (08/24/23) Detachment at Right Foot, Complete 4th Ray, Open Approach (08/24/23) Dilation of Right Peroneal Artery using Drug-Coated Balloon, Percutaneous Approach (08/24/23) Insertion of Infusion Device into Superior Vena Cava, Percutaneous Approach (10/21/22) Ultrasonography of Superior Vena Cava, Guidance (10/21/22) Labs on day of discharge: Laboratory Results - last 24 hr 10/06/24 10/06/24 10/06/24 11:30 15:50 19:51 Sodium Potassium Chloride Carbon Dioxide Anion Gap BUN Creatinine Estim Creat Clear Calc Estimated GFR POC Glucose 205 H 219 H 209 H Random Glucose Calcium 10/07/24 10/07/24 10/07/24 06:27 07:35 11:07 Sodium 135 Potassium 4.0 Chloride 95 L Carbon Dioxide 27 Anion Gap 17 BUN 59 H Creatinine 3.05 H Estim Creat Clear Calc 14.1 Estimated GFR 15 POC Glucose 130 H 267 H Random Glucose 116 H Calcium 9.1 Discharge Plan Discharge Anticipated Discharge Date/Time: 10/07/24 10:40 Patient Disposition: Home Health Service Discharge Diagnosis: ANNIE on CKD stage 3 Acute on chronic congestive heart failure with reduced ejection fraction Hyponatremia Referrals: [facility] [Outside] - 1 Day (resume services) Oleg Bill MD [Physician] - 1 Week Afua Leblanc [Primary Care Provider] - 1 Week Discharge Medications: New carvedilol 25 mg Tablet 25 mg PO BID Qty: 60 0RF Protocol: Hold for SBP/HR < HOLD for SBP < : 90 HOLD for HR < : 60 amlodipine 2.5 mg Tablet 2.5 mg PO DAILY Qty: 30 0RF Protocol: Hold for SBP< HOLD for SBP < : 90 isosorbide mononitrate 60 mg Tablet Extended Release 24 Hr 60 mg PO BID Qty: 60 0RF Protocol: Hold for SBP< HOLD for SBP < : 90 bumetanide 1 mg Tablet 1 mg PO BID@0800,1200 Qty: 60 0RF Protocol: Hold for SBP< HOLD for SBP < : 90 hydralazine 50 mg Tablet 100 mg PO TID Qty: 90 0RF Protocol: Hold for SBP< HOLD for SBP < : 90 Jardiance 10 mg Tablet 10 mg PO DAILY Qty: 30 0RF Continued aspirin 81 mg tablet,chewable 81 mg PO DAILY melatonin 3 mg Tablet 6 mg PO BEDTIME PRN (Reason: Insomnia) Qty: 30 0RF clopidogrel 75 mg Tablet 75 mg PO DAILY Qty: 30 0RF pantoprazole 40 mg tablet,delayed release (DR/EC) 40 mg PO DAILY@0630 nifedipine 60 mg tablet extended release 60 mg PO BEDTIME Ayde-Fernanda Rx 1-60-300 mg-mg-mcg tablet 1 tab PO DAILY insulin glargine-yfgn 100 unit/mL (3 mL) insulin pen 25 unit subcut BEDTIME Fiasp FlexTouch U-100 Insulin 100 unit/mL (3 mL) insulin pen 12 unit subcut TIDWM acetaminophen 325 mg capsule 650 mg PO Q6H PRN (Reason: Pain) silver sulfadiazine 1 % cream 1 appl topical DAILY Discontinued carvedilol 12.5 mg tablet 12.5 mg PO BID hydralazine 25 mg tablet 75 mg PO BID isosorbide mononitrate 120 mg tablet extended release 24 hr 120 mg PO DAILY Discharge Orders: Discharge Order (Routine); Ordered 10/07/24 Ordered By: Marlyn Rodriguez Diet: Advance to usual diet Activity on Discharge: As tolerated Stand Alone Forms: Patient Portal Discharge page Print Language: Other Care Plan Goals: Follow up with Nephrology monitor blood pressure at home and document to share with your primary care provider continue alginate, 4x4, foam pad, and kerlix wraps Health Concerns: ANNIE on CKD stage 3 Acute on chronic congestive heart failure with reduced ejection fraction Hyponatremia Plan of Treatment: Follow-up with primary care provider as needed Take all medications as prescribed Assessment: See discharge summary
[2024-10-07] MEDS: Insulin Lispro 100 UNIT/ML 3 ML VIAL SUBCUT (12:08)
== END 2024-10-07 13:30 | disposition home health service (06) | DRG 291 ==
LOC: HO.ED 22:54 → HO.EDOVER 10-03 00:55 → HO.S3 10-03 15:20 → HO.EDOVER 10-03 16:01 → HO.IMC 10-03 16:42
PROVIDERS: Physician Assistant; Physician Assistant Medical; Admitting Provider Student in an Organized Health Care Education/Training Program; Emergency Provider Internal Medicine; PCP Nurse Practitioner Family; Visit Provider Nurse Practitioner Acute Care
DX: I13.0 Hypertensive heart and chronic kidney disease with heart failure and stage 1 through stage 4 chronic kidney disease, or unspecified chronic kidney disease (principal); I50.23 Acute on chronic systolic (congestive) heart failure; N17.9 Acute kidney failure, unspecified; E87.1 Hypo-osmolality and hyponatremia; E11.649 Type 2 diabetes mellitus with hypoglycemia without coma; T87.9 Unspecified complications of amputation stump; E11.22 Type 2 diabetes mellitus with diabetic chronic kidney disease; E11.51 Type 2 diabetes mellitus with diabetic peripheral angiopathy without gangrene; N18.32 Chronic kidney disease, stage 3b; Z20.822 Contact with and (suspected) exposure to COVID-19; Z95.0 Presence of cardiac pacemaker; Z79.4 Long term (current) use of insulin; Z79.02 Long term (current) use of antithrombotics/antiplatelets; Z79.82 Long term (current) use of aspirin; Z79.899 Other long term (current) drug therapy
CPT/HCPCS: 0241U; 36415; 71046; 76775; 80048; 80076; 82947; 83036; 83735; 83880; 84145; 84484; 85025; 85610; 93005; 93306; 93975; 99285; C1758; J0360; J1650; J1940; Q9957

== ENCOUNTER → 2024-10-02 15:01 | Outpatient (BNV) | payer MEDICARE, MEDICAID, SELFPAY | PROVIDERS: Admitting Provider Student in an Organized Health Care Education/Training Program; Emergency Provider Internal Medicine; PCP Nurse Practitioner Family; Visit Provider Internal Medicine Cardiovascular Disease | DX: R94.31 Abnormal electrocardiogram [ECG] [EKG] (principal); Z95.0 Presence of cardiac pacemaker | CPT/HCPCS: 93010 ==

== ENCOUNTER → 2024-10-02 15:14 | Outpatient (BNV) | payer MEDICARE, MEDICAID, SELFPAY | PROVIDERS: Emergency Provider Internal Medicine; PCP Nurse Practitioner Family; Visit Provider Student in an Organized Health Care Education/Training Program | DX: I50.21 Acute systolic (congestive) heart failure (principal); N17.9 Acute kidney failure, unspecified; N18.30 Chronic kidney disease, stage 3 unspecified; E11.649 Type 2 diabetes mellitus with hypoglycemia without coma | CPT/HCPCS: 99223; 99499 ==

== ENCOUNTER → 2024-10-02 17:08 | Outpatient (BNV) | payer MEDICARE, MEDICAID, SELFPAY | PROVIDERS: PCP Nurse Practitioner Family; Visit Provider Radiology Vascular & Interventional Radiology | DX: R60.9 Edema, unspecified (principal) | CPT/HCPCS: 71046 ==

== ENCOUNTER 2024-10-03 00:36 | Outpatient (BNV) | payer MEDICARE, MEDICAID, SELFPAY | END 2024-10-03 16:10 | PROVIDERS: Admitting Provider Student in an Organized Health Care Education/Training Program; Emergency Provider Internal Medicine; PCP Nurse Practitioner Family; Visit Provider Radiology Diagnostic Radiology | DX: I70.1 Atherosclerosis of renal artery (principal); I10 Essential (primary) hypertension | CPT/HCPCS: 76775; 93975 ==

== ENCOUNTER → 2024-10-03 00:36 | Outpatient (BNV) | payer MEDICARE, MEDICAID, SELFPAY | PROVIDERS: Admitting Provider Student in an Organized Health Care Education/Training Program; Emergency Provider Internal Medicine; PCP Nurse Practitioner Family; Visit Provider Internal Medicine Cardiovascular Disease | DX: I50.21 Acute systolic (congestive) heart failure (principal) | CPT/HCPCS: 99233 ==

== ENCOUNTER → 2024-10-03 00:36 | Outpatient (BNV) | payer MEDICARE, MEDICAID, SELFPAY | PROVIDERS: Admitting Provider Student in an Organized Health Care Education/Training Program; Emergency Provider Internal Medicine; PCP Nurse Practitioner Family; Visit Provider Internal Medicine Nephrology | DX: N17.9 Acute kidney failure, unspecified (principal); N18.4 Chronic kidney disease, stage 4 (severe) | CPT/HCPCS: 99222; 99232 ==

== ENCOUNTER 2024-10-24 11:40 | Outpatient (AMB) | payer MEDICARE, MEDICAID, SELFPAY ==
[2024-10-24 11:42] VITALS: BMI 24.0
--- NOTE | 2024-10-24 11:42 | A.OFFVIS_ITS ---
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 She has not been to our office in approximately 1-1/2 months due to several hospital admissions for heart failure as well as kidney disease. She states she is feeling better. She does have [facility] sporadically coming to her house; it was supposed to be 3 times a week. Her sons have been changing her dressings on the opposite days. She does endorse some pain at the site of the TMA, in the middle of the site. The son states there has been some bleeding in the middle of the site when the alginate has been taken off. She states she has been eating and drinking well. She states her blood sugars have been under control. 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) History of left below knee amputation History of femoral angiogram History of left below knee amputation Pacemaker Social History Household Members: Family and Children Housing: House Do you presently have visiting nurse or other home services: No Unable to assess alcohol history related to: Unknown Alcohol intake: current Alcohol intake frequency: does not drink Patient Tobacco Use Status: Never used Tobacco service: No Current occupational status: retired Review of Systems Const Reports as per HPI and Denies weakness ENT Reports Normal hearing present and Denies dizziness Card Reports as per HPI, Denies chest pain, Denies chest pain at rest, Denies chest pain with activity, Denies dyspnea and Denies dyspnea on exertion Resp Reports as per HPI, Denies cough, Denies dyspnea and Denies dyspnea on exertion GI Reports as per HPI, Denies abdominal pain, Denies nausea and Denies vomiting Musc Denies numbness Skin/Breast Reports as per HPI, Denies erythema and Denies wounds Neuro Reports Normal hearing present, Denies dizziness, Denies numbness, Denies Sensory deficit (Neuro) and Denies weakness Psych Reports no additional complaints Endo Reports no additional complaints Physical Exam Vital Signs: BMI result Body Mass Index 24.0 Const General: healthy appearing and no acute distress Orientation/consciousness: patient oriented x3 HEENT Head: Yes normal to inspection Ears: hearing grossly normal bilaterally Mouth: Normal oral and palatal mucosa present Resp Effort & Inspection: normal respiratory effort and able to speak in complete sentences Auscultation: clear to auscultation bilaterally Cardio Jugular venous distension: no JVD Rate: regular rate Rhythm: regular rhythm Heart sounds: S1 normal heart sound present and S2 normal heart sound present Bruits: no abdominal aortic bruits, no carotid bruits, no femoral bruits and no renal bruits Peripheral pulses: Peripheral pulses 2+ throughout GI Inspection: Yes normal to inspection Palpation (GI): No Abdominal aortic bruit present Skin General skin exam: no rashes or lesions noted Wounds: no wounds Hair: normal Neuro General: patient oriented x3 Cranial nerves: Yes Normal hearing present Cognition (Neuro): normal cognition Gait exam (Neuro): Normal gait present Motor exam (neuro): 5/5 motor strength present throughout Sensory Exam: No Sensory deficit (Neuro) Extrem Other: Right TMA site: Site is measuring 5rpd4atz2.1cm, last measurement on 09/10 being 4.8x3.5x.0.1cm. The wound bed remains pink/red granulation tissue. On the most lateral aspect of the wound there is a new area of dry eschar with some bleeding. We were able to remove a small section with forceps and scissors. There is a small amount of slough noted on the most distal part of the wound. Palpable DP pulse. Right medial ankle: Area healed. General: Yes normal to inspection, Yes full ROM, Yes capillary refill normal and Yes normal gait Assessment & Plan Assessment & Plan (1) PAD (peripheral artery disease): Comment: 08/31/2023 - right transmetatarsal amputation Code(s): I73.9 - Peripheral vascular disease, unspecified Category: Medical Plan: Belkys is presenting today with her son for a hospital follow up visit as well as wound care check. The last time she was here was 09/10/2024; she has had 2 visits to [facility] with 2 admissions as well as one also to [facility] with admission for AKA on CKD as well as heart failure concerns. She does have VNA services through [facility], but is not happy with them because they are, sporadically and at 1 point they did not come for a whole week. Her sons and family have been taking over dressing changes daily due to the increased drainage from 2 small spots in the site. The wound bed remains wet with pink/red granulation tissue. There was a small amount of dry eschar on the most lateral section of the wound. There is some minor bleeding from that area as well. We will continue with dressing changes daily if possible; we will send orders to VNA services to come 3 times a week for dressing changes with alginate, 4x4s or foam pads, and Kerlix wrap. We will have Belkys come back in 2 weeks for wound checkup. If there are any questions or concerns, please do not hesitate to reach out to us. Coding Level of Care Code Est Pt Level 4 (04043) Diagnoses PAD (peripheral artery disease) I73.9
--- OUTSIDE RECORDS SUMMARY | 2024-10-24 14:18 | XMS_ITS | Clinical Summary ---
Author Organization [facility], Address [address] [facility] [address] [place] [address] Phone Care Team Providers Care Gauger Chief Delivery Name Role Phone Una Telles NP Primary [...] ophthalmology and book appt w [facility] or [facility] endocrinology DM w nephropathy, neuropathy [...] Recently Relevant to Health Maintenance Insurance MEDICAID [place] MEDICARE Care Teams Gauger Chief Delivery Relationship Specialty Start Date End Date Una Telles NP PCP - General 06/25/19
--- OUTSIDE RECORDS SUMMARY | 2024-10-24 14:18 | XMS_ITS | Clinical Summary ---
Author Organization [facility] Address [address] [place] [address] Care Team Providers Care Type Disk Quality Control Supervisor Name Role Phone ManiUna SAURABH Primary Care Provider [phone] Allergies Active Allergy Reactions Criticality Noted Date [...] age to complete this topic Care Teams Type Disk Quality Control Supervisor Relationship Specialty Start Date End Date Una Singleton NP [address] [place] [address] [address] [place] [address] PCP - General Adult Health - PA/APNP/SENIOR SOFTWARE QUALITY ANALYST/COAT FITTER 11/18/21
== END 2024-10-24 15:10 | disposition home or self-care (01) ==
PROVIDERS: PCP Nurse Practitioner Family; Visit Provider Physician Assistant Surgical
DX: I73.9 Peripheral vascular disease, unspecified (principal)
CPT/HCPCS: 99214

== ENCOUNTER → 2024-10-24 11:40 | Outpatient (BNVA) | payer MEDICARE, MEDICAID, SELFPAY | PROVIDERS: PCP Nurse Practitioner Family; Visit Provider Physician Assistant Surgical | DX: I73.9 Peripheral vascular disease, unspecified (principal) | CPT/HCPCS: 99212 ==

== ENCOUNTER 2024-10-30 11:34 | Outpatient (AMB) | payer MEDICARE, MEDICAID, SELFPAY ==
--- NOTE | 2024-10-30 11:41 | HO.NEPHOV_ITS ---
Vital Signs 10/30/24 11:46 Height 5 ft 4 in BP 140/80 H Blood Pressure Location Lt brachial Position Sitting Pulse 64 Pulse Source Pulse Oximeter Pulse Oximetry (%) 98 Oxygen Delivery Method Room Air Intake Visit Reasons: [facility] [place]/son Hourly Team Members Required: No Accompanied by: Son Allergies penicillin V Allergy (Unknown, Verified 10/30/24 11:46) RSH,ITCHY HPI Comments Details: 72-year-old female with peripheral arterial disease status post left BKA, essential hypertension, insulin-dependent diabetes mellitus was seen today for follow up of her CKD. She had normocytic anemia likely due to chronic inflammation . She has been having dyspnea which is worse with exertion with PND. She was found to have interstitial edema with elevated BNP. She had ANNIE on CKD3b. due to cardiorenal syndrome . SCr peaked at 3.05 & stabilized and was D/[facility]rell home. She denies any chest pain, shortness of breath, paroxysmal nocturnal dyspnea, orthopnea, pedal edema or urinary symptoms. She does not take any nonsteroidal anti-inflammatories. She tries to maintain good hydration. [facility] Medical History CKD (chronic kidney disease) stage 4, GFR 15-29 ml/min Congestive heart failure Acute systolic CHF (congestive heart failure) Essential hypertension PAD (peripheral artery disease) Hypertension Mood disorder Diabetes Surgical History History of transmetatarsal amputation of right foot (08/31/23) History of left below knee amputation History of femoral angiogram History of left below knee amputation Pacemaker Social History Household Members: Family and Children Housing: House Do you presently have visiting nurse or other home services: No Unable to assess alcohol history related to: Unknown Alcohol intake: current Alcohol intake frequency: does not drink Patient Tobacco Use Status: Never used Tobacco service: No Current occupational status: retired Review of Systems Const All systems reviewed & are unremarkable except as noted in HPI and below Physical Exam Vital Signs: Last Vital Signs Pulse 64 10/30/24 11:46 BP 140/80 H 10/30/24 11:46 Pulse Ox 98 10/30/24 11:46 Oxygen Delivery Method Room Air 10/30/24 11:46 Const General: comfortable and no acute distress Orientation/consciousness: patient oriented x3 HEENT Head: Yes normocephalic Mouth: Normal oral and palatal mucosa present Eyes EOM: EOMs intact bilaterally Neck Neck: Yes supple Resp Auscultation: clear to auscultation bilaterally Cardio Jugular venous distension: no JVD Rate: regular rate GI Palpation (GI): Soft to palpation Auscultation: normal bowel sounds Skin General skin exam: no rashes or lesions noted Neuro General: patient oriented x3 and moves all extremities Results Reviewed Nephrology Results: Hgb 11.4 g/dl (12.0-16.0) L 10/30/24 WBC 5.5 X10*3/uL (4.8-10.8) 10/30/24 Plt Count 309 X10*3/uL (160-400) 10/30/24 Sodium 139 mmol/L (135-145) 10/30/24 Potassium 4.7 mmol/L (3.3-5.1) 10/30/24 Chloride 107 mmol/L (96-108) 10/30/24 Carbon Dioxide 24 mmol/L (22-29) 10/30/24 BUN 67 mg/dL (9-16) H 10/30/24 Creatinine 2.50 mg/dL (0.5-1.4) H 10/30/24 Calcium 9.6 mg/dL (8.4-10.2) 10/30/24 PTH Intact 248.1 pg/mL (8.7-77.1) H 10/30/24 Renal US 10/03/24 Assessment & Plan Assessment & Plan (1) CKD (chronic kidney disease) stage 3, GFR 30-59 ml/min: Code(s): N18.30 - Chronic kidney disease, stage 3 unspecified Category: Medical Qualifiers: Chronic kidney disease stage 3 subtype: stage 3b (GFR 30-44) Qualified Code(s): N18.32 - Chronic kidney disease, stage 3b (2) Essential hypertension: Code(s): I10 - Essential (primary) hypertension Category: Medical (3) Anemia in chronic kidney disease (CKD): Code(s): N18.9 - Chronic kidney disease, unspecified; D63.1 - Anemia in chronic kidney disease Category: Medical Qualifiers: Chronic kidney disease stage: stage 4 (GFR 15-29) Qualified Code(s): N18.4 - Chronic kidney disease, stage 4 (severe); D63.1 - Anemia in chronic kidney disease Plan Belkys has CKD and had ANNIE on CKD recently due to CRS. She has H/O heart failure which has resolved. Her CKD is likely from vascular disease. Her urine output is good. She can continu her current medications for now . She will be a candidate for Procrit injections in the future. I did not make any medication changes today. She should avoid nonsteroidal anti-inflammatory medications and maintain good hydration. Follow-up blood work ordered , answered her and her son's questions. Follow-up given Orders: Orders Creatinine 2 Months D63.1 - Anemia in chronic kidney disease, I10 - Essential (primary) hypertension, N18.32 - Chronic kidney disease, stage 3b, N18.9 - Chronic kidney disease, unspecified Electrolytes 2 Months D63.1 - Anemia in chronic kidney disease, I10 - Essential (primary) hypertension, N18.32 - Chronic kidney disease, stage 3b, N18.9 - Chronic kidney disease, unspecified Complete Blood Count Auto Diff 2 Months D63.1 - Anemia in chronic kidney disease, I10 - Essential (primary) hypertension, N18.32 - Chronic kidney diseas e, stage 3b, N18.9 - Chronic kidney disease, unspecified Blood Urea Nitrogen 2 Months D63.1 - Anemia in chronic kidney disease, I10 - Essential (primary) hypertension, N18.32 - Chronic kidney disease, stage 3b, N18.9 - Chronic kidney disease, unspecified Calcium 2 Months D63.1 - Anemia in chronic kidney disease, I10 - Essential (primary) hypertension, N18.32 - Chronic kidney disease, stage 3b, N18.9 - Chronic kidney disease, unspecified Phosphorus 2 Months D63.1 - Anemia in chronic kidney disease, I10 - Essential (primary) hypertension, N18.32 - Chronic kidney disease, stage 3b, N18.9 - Chronic kidney disease, unspecified Coding Level of Care Code Est Pt Level 4 (05012) Diagnoses Stage 3b chronic kidney disease N18.32 Chronic kidney disease stage 3 subtype: stage 3b (GFR 30-44) Essential hypertension I10 Anemia in stage 4 chronic kidney disease N18.4; D63.1 Chronic kidney disease stage: stage 4 (GFR 15-29)
[2024-10-30 11:46] VITALS: BP 140/80; PULSE 64; O2SAT 98
--- OUTSIDE RECORDS SUMMARY | 2024-10-30 13:42 | XMS_ITS ---
Author Name [facility] Organization Unknown Encounters Encounter Type Encounter Reason Primary Diagnosis Location Date Emergency Periapical absce ss without sinus [facility] 11/18/2021 Care Team Organization Name Specialty Phone Email Start Date End Da te [facility] 11/19/2021 04/08/2024 [facility] 11/18/2021 11/19/19
--- OUTSIDE RECORDS SUMMARY | 2024-10-30 13:42 | XMS_ITS | Clinical Summary ---
Author Organization [facility] Address [address] [place] [address] Care Team Providers Care Document Improvement Specialist Name Role Phone ManiUna SAURABH Primary Care Provider Allergies Active Allergy Reactions Criticality Noted Date [...] age to complete this topic Care Teams Document Improvement Specialist Relationship Specialty Start Date End Date Una Singleton NP [address] [place] [address] [address] [place] [address] PCP - General Adult Health - PA/APNP/BOW REHAIRER/FLIGHT CONTROL SPECIALIST 11/18/21
--- OUTSIDE RECORDS SUMMARY | 2024-10-30 13:43 | XMS_ITS | Clinical Summary ---
Author Organization [facility], Address [address] [facility] [address] [place] [address] Phone Care Team Providers Care Special Education Tutor Name Role Phone Una Telles NP Primary [...] ophthalmology and book appt w [facility] or [facility] endocrinology DM w nephropathy, neuropathy & retinopathy. [...] Recently Relevant to Health Maintenance Insurance [place]ICAID [place] MEDICARE Care Teams Special Education Tutor Relationship Specialty Start Date End Date Una Telles NP PCP - General 06/25/19
== END 2024-10-30 12:03 | disposition home or self-care (01) ==
LOC: HO.HKA 11:35
PROVIDERS: PCP Nurse Practitioner Family; Visit Provider Internal Medicine Nephrology
DX: I12.9 Hypertensive chronic kidney disease with stage 1 through stage 4 chronic kidney disease, or unspecified chronic kidney disease (principal); N18.32 Chronic kidney disease, stage 3b; N18.4 Chronic kidney disease, stage 4 (severe); D63.1 Anemia in chronic kidney disease
CPT/HCPCS: 99214

== ENCOUNTER 2024-10-30 12:10 | Outpatient (REF) | payer MEDICARE, MEDICAID, SELFPAY ==
[2024-10-30 13:11] LABS: MANUAL DIFF FLAG NO
[2024-10-30 13:14] LABS: Basophils Percent Auto 0.5 % (0-2); Eosinophils Absolute Auto 0.1 X10*3/uL (0.0-0.4); Eosinophils Percent Auto 1.3 % (0-4); Hemoglobin 11.4 g/dl (12.0-16.0); Imm Gran Abs Auto 0.01 X10*3/uL (0.00-0.03); Imm Gran Pct Auto 0.2 % (0.0-0.4); Lymphocytes Percent Auto 17.5 % (20-40); Mean Corpuscular HGB Conc 30.8 g/dl (31.0-35.0); Mean Corpuscular Hemoglobin 24.9 pg (27.0-33.0); Monocytes Absolute Auto 0.8 X10*3/uL (0.1-1.2); Monocytes Percent Auto 14.4 % (2-11); Neutrophils Absolute Auto 3.6 x10*3/uL (2.0-8.3); Neutrophils Percent Auto 66.1 % (45-73); Platelet Count 309 X10*3/uL (160-400); Red Blood Count 4.57 X10*6/uL (4.20-5.50); Red Cell Distribution Width 16.1 % (11.0-16.0); White Blood Count 5.5 X10*3/uL (4.8-10.8)
[2024-10-30 13:32] LABS: Anion Gap 13 (12-20); Blood Urea Nitrogen 67 mg/dL (9-16); Calcium 9.6 mg/dL (8.4-10.2); Carbon Dioxide 24 mmol/L (22-29); Chloride 107 mmol/L (96-108); Estimated Glomerular Filt Rate 19; Iron 52 mcg/dL (30-160); Percent Iron Saturation 21 % (15-50); Potassium 4.7 mmol/L (3.3-5.1); Sodium 139 mmol/L (135-145); Total Iron Binding Capacity 251 mcg/dL (228-428); Unsaturated Iron Binding 199 ug/dL
[2024-10-30 13:47] LABS: Ferritin 219 ng/mL (10-250); Vitamin D 25-OH Total 31.5 ng/mL (>30)
[2024-10-30 13:48] LABS: Parathyroid Hormone Intact 248.1 pg/mL (8.7-77.1)
--- OUTSIDE RECORDS SUMMARY | 2024-10-30 14:12 | XMS_ITS | Clinical Summary ---
Author Organization [facility] Address [address] [place] [address] Care Team Providers Care Peanut Roaster Name Role Phone ManiUna SAURABH Primary Care Provider [phone] Allergies Active Allergy Reactions Criticality Noted Date [...] age to complete this topic Care Teams Peanut Roaster Relationship Specialty Start Date End Date Una Singleton NP [address] [place] [address] [address] [place] [address] PCP - General Adult Health - PA/APNP/SAMPLING THEORY TEACHER/DRAFTER SEISMOGRAPH 11/18/21
--- OUTSIDE RECORDS SUMMARY | 2024-10-30 14:12 | XMS_ITS | Clinical Summary ---
Author Organization [facility], Address [address] [facility] [address] [place] [address] Phone Care Team Providers Care Roller Hand Name Role Phone Una Telles NP Primary [...] ophthalmology and book appt w [facility] or [facility] endocrinology DM w nephropathy, neuropathy & [...] Recently Relevant to Health Maintenance Insurance MEDICAID [place] MEDICARE Care Teams Roller Hand Relationship Specialty Start Date End Date Una Telles NP PCP - General 06/25/19
== END 2024-10-30 12:11 | disposition home or self-care (01) ==
LOC: HO.10HDL 12:10
PROVIDERS: Visit Provider Internal Medicine Nephrology
DX: N18.32 Chronic kidney disease, stage 3b (principal); I73.9 Peripheral vascular disease, unspecified; I10 Essential (primary) hypertension; N18.9 Chronic kidney disease, unspecified; D63.1 Anemia in chronic kidney disease
CPT/HCPCS: 36415; 80051; 82306; 82310; 82565; 82728; 83540; 83970; 84520; 85025; 99212

== ENCOUNTER 2024-11-07 11:26 | Outpatient (AMB) | payer MEDICARE, MEDICAID, SELFPAY ==
--- NOTE | 2024-11-07 11:27 | MHC.OFFVIS ---
Vital Signs 11/07/24 11:31 Height 5 ft 4 in Weight 140 lb BMI 24.0 Intake Visit Reasons: 2 week follow up wound check Intake Note: 2 wk follow up non-healing Right Transmet amp follow up.VNA 3 times per week Paper Sales Manager Required: Yes Paper Sales Manager Name: son kunal, no aurelio amaya cre Information Interpreted: clinical only Accompanied by: Son Allergies penicillin V Allergy (Unknown, Verified 11/07/24 11:33) RSH,ITCHY HPI HPI 2 week follow up wound check: Details: Belkys is presenting today with her son for a 2w follow up wound check. She continues with VNA services 3/week; she states that they are working out much better and doing well for her. She does state that she has been standing more and moving around. She recently had an appt with Nephrology, who is monitoring her kidney function and obtaining labwork. She states she has not been eating much lately, she doesn't have a great appetite. Her family is changing the dressings on the days VNA is not there. They do note that there continues to be drainage on the dressings. [facility] Medical History CKD (chronic kidney disease) stage 4, GFR 15-29 ml/min Congestive heart failure Acute systolic CHF (congestive heart failure) Essential hypertension PAD (peripheral artery disease) Hypertension Mood disorder Diabetes Surgical History History of transmetatarsal amputation of right foot (08/31/23) History of left below knee amputation History of femoral angiogram History of left below knee amputation Pacemaker Social History Household Members: Family and Children Housing: House Do you presently have visiting nurse or other home services: No Unable to assess alcohol history related to: Unknown Alcohol intake: current Alcohol intake frequency: does not drink Patient Tobacco Use Status: Never used Tobacco service: No Current occupational status: retired Review of Systems Const Reports as per HPI and Denies weakness ENT Reports Normal hearing present and Denies dizziness Card Reports as per HPI, Denies chest pain, Denies chest pain at rest, Denies chest pain with activity, Denies dyspnea and Denies dyspnea on exertion Resp Reports as per HPI, Denies cough, Denies dyspnea and Denies dyspnea on exertion GI Reports as per HPI, Denies abdominal pain, Denies nausea and Denies vomiting Musc Denies numbness Skin/Breast Reports as per HPI, Denies erythema and Denies wounds Neuro Reports Normal hearing present, Denies dizziness, Denies numbness, Denies Sensory deficit (Neuro) and Denies weakness Psych Reports no additional complaints Endo Reports no additional complaints Physical Exam Vital Signs: BMI result Body Mass Index 24.0 Const General: healthy appearing and no acute distress Orientation/consciousness: patient oriented x3 HEENT Head: Yes normal to inspection Ears: hearing grossly normal bilaterally Mouth: Normal oral and palatal mucosa present Resp Effort & Inspection: normal respiratory effort and able to speak in complete sentences Auscultation: clear to auscultation bilaterally Cardio Jugular venous distension: no JVD Rate: regular rate Rhythm: regular rhythm Heart sounds: S1 normal heart sound present and S2 normal heart sound present Bruits: no abdominal aortic bruits, no carotid bruits, no femoral bruits and no renal bruits Peripheral pulses: Peripheral pulses 2+ throughout GI Inspection: Yes normal to inspection Palpation (GI): No Abdominal aortic bruit present Skin General skin exam: no rashes or lesions noted Wounds: no wounds Hair: normal Neuro General: patient oriented x3 Cranial nerves: Yes Normal hearing present Cognition (Neuro): normal cognition Gait exam (Neuro): Normal gait present Motor exam (neuro): 5/5 motor strength present throughout Sensory Exam: No Sensory deficit (Neuro) Extrem Other: Right TMA site: Site is measuring 4ucp0kho1.1cm, unchanged from 2w ago. The wound bed remains pink/red granulation tissue. On the most lateral aspect of the wound there is an area of dry eschar with some bleeding. We were able to remove a small section with forceps and scissors. There is a small amount of slough noted on the most distal part of the wound and on 3 other smaller sections in the wound bed. Palpable DP pulse. Right medial ankle: Area healed, son noting there is intermittent clear discharge from the area. General: Yes normal to inspection, Yes full ROM, Yes capillary refill normal and Yes normal gait Assessment & Plan Assessment & Plan (1) PAD (peripheral artery disease): Comment: 08/31/2023 - right transmetatarsal amputation Code(s): I73.9 - Peripheral vascular disease, unspecified Category: Medical Plan: Belkys is presenting today for a 2w wound check. She is expressing frustrations about the slow healing. She does continue with VNA services 3/week with her family doing the dressing changes the other days. There continues to be drainage noted from the site. She is also being followed by Nephrology for some kidney concerns. We would continue with the dressing changes of Alginate, foam pad/4x4s, and Kerlix wrap. We discussed the importance of food, particularly proteins, to help with healing. We discussed the importance of BG control. We will have her follow up with us in 2w. If there are any questions or concerns, please do not hesitate to reach out to us. Coding Level of Care Code Est Pt Level 4 (45440) Diagnoses PAD (peripheral artery disease) I73.9
[2024-11-07 11:31] VITALS: BMI 24.0
--- OUTSIDE RECORDS SUMMARY | 2024-11-07 13:43 | XMS_ITS | Clinical Summary ---
Author Organization [facility] Address [address] [place] [address] Care Team Providers Care Oil Refinery Operator Name Role Phone ManiUna SAURABH Primary Care Provider [phone] Allergies Active Allergy Reactions Criticality Noted Date [...] age to complete this topic Care Teams Oil Refinery Operator Relationship Specialty Start Date End Date Una Singleton NP [address] [place] [address] [address] [place] [address] PCP - General Adult Health - PA/APNP/ASSISTANT FRONT DESK MANAGER/BRAKE ASSEMBLER 11/18/21
--- OUTSIDE RECORDS SUMMARY | 2024-11-07 13:43 | XMS_ITS | Clinical Summary ---
Author Organization [facility], Address [address] [facility] [address] [place] [address] Phone Care Team Providers Care Assistant Professor Of Mathematics Name Role Phone Una Telles NP Primary [...] ophthalmology and book appt w [facility] or [facility] endocrinology DM w nephropathy, neuropathy & [...] Recently Relevant to Health Maintenance Insurance MEDICAID [place] MEDICARE Care Teams Assistant Professor Of Mathematics Relationship Specialty Start Date End Date Una Telles NP PCP - General 06/25/19
== END 2024-11-07 13:24 | disposition home or self-care (01) ==
LOC: HO.HVS 11:27
PROVIDERS: PCP Nurse Practitioner Family; Visit Provider Physician Assistant Surgical
DX: I73.9 Peripheral vascular disease, unspecified (principal)
CPT/HCPCS: 99214

== ENCOUNTER → 2024-11-07 11:26 | Outpatient (BNVA) | payer MEDICARE, MEDICAID, SELFPAY | PROVIDERS: PCP Nurse Practitioner Family; Visit Provider Physician Assistant Surgical | DX: I73.9 Peripheral vascular disease, unspecified (principal) | CPT/HCPCS: 99212 ==

== ENCOUNTER 2024-11-28 11:33 | Outpatient (AMB) | payer MEDICARE, MEDICAID, SELFPAY ==
--- NOTE | 2024-11-28 11:41 | A.OFFVIS_ITS ---
Intake Visit Reasons: 3 week follow up wound check Intake Note: Patient presents for follow up wound check. No pain , states everything is 'the same . Accompanied by: Son Allergies penicillin V Allergy (Unknown, Verified 11/28/24 11:41) RSH,ITCHY HPI HPI 3 week follow up wound check: Details: Belkys is presenting today with her son for a 3w follow up/wound check. She continues with VNA services 3 times a week. She has been doing well and has no new concerns today. Her son states that her kidney levels have decreased significantly. She states she has been standing up more but not walking much, just down the hallway. 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) History of left below knee amputation History of femoral angiogram History of left below knee amputation Pacemaker Social History Household Members: Family and Children Housing: House Do you presently have visiting nurse or other home services: No Unable to assess alcohol history related to: Unknown Alcohol intake: current Alcohol intake frequency: does not drink Patient Tobacco Use Status: Never used Tobacco service: No Current occupational status: retired Review of Systems Const Reports as per HPI and Denies weakness ENT Reports Normal hearing present and Denies dizziness Card Reports as per HPI, Denies chest pain, Denies chest pain at rest, Denies chest pain with activity, Denies dyspnea and Denies dyspnea on exertion Resp Reports as per HPI, Denies cough, Denies dyspnea and Denies dyspnea on exertion GI Reports as per HPI, Denies abdominal pain, Denies nausea and Denies vomiting Musc Denies numbness Skin/Breast Reports as per HPI, Denies erythema and Denies wounds Neuro Reports Normal hearing present, Denies dizziness, Denies numbness, Denies Sensory deficit (Neuro) and Denies weakness Psych Reports no additional complaints Endo Reports no additional complaints Physical Exam Const General: healthy appearing and no acute distress Orientation/consciousness: patient oriented x3 HEENT Head: Yes normal to inspection Ears: hearing grossly normal bilaterally Mouth: Normal oral and palatal mucosa present Resp Effort & Inspection: normal respiratory effort and able to speak in complete sentences Auscultation: clear to auscultation bilaterally Cardio Jugular venous distension: no JVD Rate: regular rate Rhythm: regular rhythm Heart sounds: S1 normal heart sound present and S2 normal heart sound present Bruits: no abdominal aortic bruits, no carotid bruits, no femoral bruits and no renal bruits Peripheral pulses: Peripheral pulses 2+ throughout GI Inspection: Yes normal to inspection Palpation (GI): No Abdominal aortic bruit present Skin General skin exam: no rashes or lesions noted Wounds: no wounds Hair: normal Neuro General: patient oriented x3 Cranial nerves: Yes Normal hearing present Cognition (Neuro): normal cognition Gait exam (Neuro): Normal gait present Motor exam (neuro): 5/5 motor strength present throughout Sensory Exam: No Sensory deficit (Neuro) Extrem Other: Right TMA site: Site is measuring 4.2mhr1vud3.1cm, decreased slightly in size from 3w ago (3yhr0mj). The wound bed remains pink/red granulation tissue. On the most lateral aspect of the wound there is an area of dry eschar. We were able to remove a small section with forceps and scissors. There is a small amount of slough noted on the most distal part of the wound and on 3 other smaller sections in the wound bed. Palpable DP pulse. General: Yes normal to inspection, Yes full ROM, Yes capillary refill normal and Yes normal gait Assessment & Plan Assessment & Plan (1) PAD (peripheral artery disease): Comment: 08/31/2023 - right transmetatarsal amputation Code(s): I73.9 - Peripheral vascular disease, unspecified Category: Medical Plan: Belkys is presenting today with her son for a 3w follow up for ongoing wound care s/p right TMA on 08/31/23. The site has slightly decreased in size from last visit. There is some slough noted in the wound bed, some was easily removed with forceps and scissors. The wound bed is pink/red. I had a lengthy discussion with the pt and her son about getting a wound vac to help facilitate healing. I discussed what the dressing changes would be, every 3-4 days, and we would trial it to see if she would be successful with this. I discussed that we will order the wound vac and do the first placement here. I discussed with them that we will call them when the wound vac gets here and we will place it. We discussed that we will have to check with the VNA services to make sure they will be able to change it at home. I discussed that it may not help or it may, we will have to see. They are in agreement to the plan. We will order the wound vac and then reach out to them to schedule their follow up appt. We will have them continue with daily dressing changes with Alginate, 4x4s, and kerlix wrap. If there are any questions or concerns, please do not hesitate to reach out to us. Coding Level of Care Code Est Pt Level 3 (76446) Diagnoses PAD (peripheral artery disease) I73.9
--- OUTSIDE RECORDS SUMMARY | 2024-11-28 14:07 | XMS_ITS | Clinical Summary ---
Author Organization [facility], Address [address] [facility] [address] [place] [address] Phone Care Team Providers Care Shoe Folder Name Role Phone Una Telles NP Primary [...] ophthalmology and book appt w [facility] or [facility] endocrinology DM w nephropathy, neuropathy & retinopathy. Very poorly controlled due to med & dietary noncompliance Last Assessment & Plan: Increase tresiba to 60 units nightly, novolog to 20 units TID 1 month FU for DM Immunizations Immunization Administration Dates Next Due Influenza Split High [...] Diabetes: Hemoglobin A1C 04/28/2022 01/26/2022 Influenza Vaccine (Season Ended) 2025 06/08/2020, 05/30/2018, 07/18/2017, Additional history exists Pneumococcal Vaccine: 50+ Years Completed 08/01/2018, 07/18/2017 Hepatitis B Vaccine [...] Most Recently Relevant to Health Maintenance Insurance Medicaid [place] Medicare Care Teams Shoe Folder Relationship Specialty Start Date End Date Una Telles NP PCP - General 06/25/19
--- OUTSIDE RECORDS SUMMARY | 2024-11-28 14:07 | XMS_ITS | Clinical Summary ---
Author Organization [facility] Address [address] [place] [address] Care Team Providers Care Aerospace Mechanic Name Role Phone ManiUna SAURABH Primary Care Provider [phone] Allergies Active Allergy Reactions Criticality Noted Date [...] age to complete this topic Care Teams Aerospace Mechanic Relationship Specialty Start Date End Date Una Singleton NP [address] [place] [address] [address] [place] [address] PCP - General Adult Health - PA/APNP/PROCESS TANK TENDER/CST 11/18/21
== END 2024-11-28 12:16 | disposition home or self-care (01) ==
LOC: HO.HVS 11:34
PROVIDERS: PCP Nurse Practitioner Family; Visit Provider Physician Assistant Surgical
DX: I73.9 Peripheral vascular disease, unspecified (principal)
CPT/HCPCS: 99213

== ENCOUNTER → 2024-11-28 11:33 | Outpatient (BNVA) | payer MEDICARE, MEDICAID, SELFPAY | PROVIDERS: PCP Nurse Practitioner Family; Visit Provider Physician Assistant Surgical | DX: I73.9 Peripheral vascular disease, unspecified (principal) | CPT/HCPCS: 99212 ==

== ENCOUNTER 2024-12-05 11:37 | Outpatient (AMB) | payer MEDICARE, MEDICAID, SELFPAY ==
[2024-12-05 11:41] VITALS: BMI 24.0
--- NOTE | 2024-12-05 11:41 | A.OFFVIS_ITS ---
Vital Signs 12/05/24 11:41 Height 5 ft 4 in Weight 140 lb BMI 24.0 Intake Visit Reasons: wound vac Intake Note: follow up Right Transmet Amp wound check and wound vac placement Accompanied by: Son Allergies penicillin V Allergy (Unknown, Verified 12/05/24 11:43) RSH,ITCHY HPI HPI wound vac: Details: Belkys is presenting today with her son for placement of a wound vac. We have been seeing Belkys every 2-3w for wound for a nonhealing/slow healing right TMA site. The TMA was initially done on 08/31/23. She denies any pain at the site. The wound is very slow to heal. The pt and her son are very excited in hopes this will help with the healing process. [facility] Medical History CKD (chronic kidney disease) stage 4, GFR 15-29 ml/min Congestive heart failure Acute systolic CHF (congestive heart failure) Essential hypertension PAD (peripheral artery disease) Hypertension Mood disorder Diabetes Surgical History History of transmetatarsal amputation of right foot (08/31/23) History of left below knee amputation History of femoral angiogram History of left below knee amputation Pacemaker Social History Household Members: Family and Children Housing: House Do you presently have visiting nurse or other home services: No Unable to assess alcohol history related to: Unknown Alcohol intake: current Alcohol intake frequency: does not drink Patient Tobacco Use Status: Never used Tobacco service: No Current occupational status: retired Review of Systems Const Reports as per HPI and Denies weakness ENT Reports Normal hearing present and Denies dizziness Card Reports as per HPI, Denies chest pain, Denies chest pain at rest, Denies chest pain with activity, Denies dyspnea and Denies dyspnea on exertion Resp Reports as per HPI, Denies cough, Denies dyspnea and Denies dyspnea on exertion GI Reports as per HPI, Denies abdominal pain, Denies nausea and Denies vomiting Musc Denies numbness Skin/Breast Reports as per HPI, Denies erythema and Denies wounds Neuro Reports Normal hearing present, Denies dizziness, Denies numbness, Denies Sensory deficit (Neuro) and Denies weakness Psych Reports no additional complaints Endo Reports no additional complaints Physical Exam Vital Signs: BMI result Body Mass Index 24.0 Const General: healthy appearing and no acute distress Orientation/consciousness: patient oriented x3 HEENT Head: Yes normal to inspection Ears: hearing grossly normal bilaterally Mouth: Normal oral and palatal mucosa present Resp Effort & Inspection: normal respiratory effort and able to speak in complete sentences Auscultation: clear to auscultation bilaterally Cardio Jugular venous distension: no JVD Rate: regular rate Rhythm: regular rhythm Heart sounds: S1 normal heart sound present and S2 normal heart sound present Bruits: no abdominal aortic bruits, no carotid bruits, no femoral bruits and no renal bruits Peripheral pulses: Peripheral pulses 2+ throughout GI Inspection: Yes normal to inspection Palpation (GI): No Abdominal aortic bruit present Skin General skin exam: no rashes or lesions noted Wounds: no wounds Hair: normal Neuro General: patient oriented x3 Cranial nerves: Yes Normal hearing present Cognition (Neuro): normal cognition Gait exam (Neuro): Normal gait present Motor exam (neuro): 5/5 motor strength present throughout Sensory Exam: No Sensory deficit (Neuro) Extrem Other: Right TMA site: Site is measuring 4.3lds5afd9.1cm. The wound bed remains pink/red granulation tissue. On the most lateral aspect of the wound there is an area of dry eschar. There is a small amount of slough noted on the most distal part of the wound and on 3 other smaller sections in the wound bed. Palpable DP pulse. General: Yes normal to inspection, Yes full ROM, Yes capillary refill normal and Yes normal gait Assessment & Plan Assessment & Plan (1) PAD (peripheral artery disease): Comment: 08/31/2023 - right transmetatarsal amputation Code(s): I73.9 - Peripheral vascular disease, unspecified Category: Medical Plan: Belkys is presenting today with her son for placement of a wound vac on her slow healing right TMA site. They are excited about the prospect of increasing the healing process. We will reach out to the VNA services to make sure they are able to change the wound vac every 3-4d. We were able to successfully place the wound vac, describing all of the steps to the son. We were able to get 125mmHg of suction. The pump was working well prior to them leaving. I discussed with them that if they had any questions or concerns about the pump or anything, to reach out to us. We discussed that if it stopped working/unable to get it to work, they can go back to the previous wound care dressings. We will have them follow up in 2w to see how she is progressing and to change the wound vac. If there are any questions or concerns, please do not hesitate to reach out to us. Coding Level of Care Code Est Pt Level 4 (88955) Diagnoses PAD (peripheral artery disease) I73.9 Comment placement of the wound vac
--- OUTSIDE RECORDS SUMMARY | 2024-12-05 14:31 | XMS_ITS | Clinical Summary ---
Author Organization [facility], Address [address] [facility] [address] [place] [address] Phone Care Team Providers Care Child Welfare Worker Name Role Phone Una Telles NP Primary [...] ophthalmology and book appt w [facility] or [facility] endocrinology DM w nephropathy, neuropathy [...] Pneumococcal Vaccine: 50+ Years Completed 08/01/2018, 07/18/2017 Pneumococcal Vaccine: Peds (0 to 5 Years) and At-Risk Patients (6 to 49 Years) Discontinued 08/01/2018, 07/18/2017 Hepatitis B Vaccine Aged Out [...] Recently Relevant to Health Maintenance Insurance Medicaid [place] Medicare Care Teams Child Welfare Worker Relationship Specialty Start Date End Date Una Telles NP PCP - General 06/25/19
--- OUTSIDE RECORDS SUMMARY | 2024-12-05 14:31 | XMS_ITS | Clinical Summary ---
Author Organization [facility] Address [address] [place] [address] Care Team Providers Care Business Solutions Consultant Name Role Phone ManiUna SAURABH Primary Care Provider [phone] Allergies Active Allergy Reactions Criticality Noted Date Comments Penicillins Unknown/Patient and Family Unable to Define Medium 11/18/2021 Medications No known medications Social History Tobacco Use Types Packs/Day Years Used Date Smoking Tobacco: Never Assessed Comments Unknown Sex and Gender Information Value Date Recorded Sex Assigned at Not on file Legal Sex Female 9:05 PM EDT Gender Identity Not on file Sexual Orientation [...] on patient's age to complete this topic Insurance MEDICARE PART A & B [facility] Care Teams Business Solutions Consultant Relationship Specialty Start Date End Date Una Singleton NP [address] [place] [address] [address] [place] [address] PCP - General Adult Health - PA/APNP/AUTOMOBILE SERVICE STATION ATTENDANT/CLOCK AND WATCH HANDS MOUNTER 11/18/21
== END 2024-12-05 12:25 | disposition home or self-care (01) ==
LOC: HO.HVS 11:38
PROVIDERS: PCP Nurse Practitioner Family; Visit Provider Physician Assistant Surgical
DX: I73.9 Peripheral vascular disease, unspecified (principal)
CPT/HCPCS: 99214

== ENCOUNTER → 2024-12-05 11:37 | Outpatient (BNVA) | payer MEDICARE, MEDICAID, SELFPAY | PROVIDERS: PCP Nurse Practitioner Family; Visit Provider Physician Assistant Surgical | DX: S91.301D Unspecified open wound, right foot, subsequent encounter (principal); T87.89 Other complications of amputation stump; E11.51 Type 2 diabetes mellitus with diabetic peripheral angiopathy without gangrene; X58.XXXD Exposure to other specified factors, subsequent encounter; Z89.421 Acquired absence of other right toe(s) | CPT/HCPCS: 99212 ==

== ENCOUNTER 2024-12-31 13:41 | Outpatient (AMB) | payer MEDICARE, MEDICAID, SELFPAY ==
--- NOTE | 2024-12-31 13:45 | MHC.OFFVIS ---
Intake Visit Reasons: Follow up wound vac Intake Note: Patient presents for follow up wound vac. Patient has not been using the wound vac. Dressings changed by visiting nurse every other day. Accompanied by: Son Allergies penicillin V Allergy (Unknown, Verified 12/05/24 11:43) RSH,ITCHY HPI HPI Follow up wound vac: Details: Belkys is presenting today with her son for a follow up to wound vac placement (12/05/24). The pt did not tolerate the wound vac, having shut it off multiple times during the day and keeping it off all night. And, despite us reaching out to her VNA, the son stated that some of the nurses did not know how to replace the wound vac, when it was due. The son states the pt maybe had it on for a total of 3 days. They have gone back to doing the previous wound care dressings, 3/week. She has no new concerns today. [facility] Medical History CKD (chronic kidney disease) stage 4, GFR 15-29 ml/min Congestive heart failure Acute systolic CHF (congestive heart failure) Essential hypertension PAD (peripheral artery disease) Hypertension Mood disorder Diabetes Surgical History History of transmetatarsal amputation of right foot (08/31/23) History of left below knee amputation History of femoral angiogram History of left below knee amputation Pacemaker Social History Household Members: Family and Children Housing: House Do you presently have visiting nurse or other home services: No Unable to assess alcohol history related to: Unknown Alcohol intake: current Alcohol intake frequency: does not drink Patient Tobacco Use Status: Never used Tobacco service: No Current occupational status: retired Review of Systems Const Reports as per HPI and Denies weakness ENT Reports Normal hearing present and Denies dizziness Card Reports as per HPI, Denies chest pain, Denies chest pain at rest, Denies chest pain with activity, Denies dyspnea and Denies dyspnea on exertion Resp Reports as per HPI, Denies cough, Denies dyspnea and Denies dyspnea on exertion GI Reports as per HPI, Denies abdominal pain, Denies nausea and Denies vomiting Musc Denies numbness Skin/Breast Reports as per HPI, Denies erythema and Denies wounds Neuro Reports Normal hearing present, Denies dizziness, Denies numbness, Denies Sensory deficit (Neuro) and Denies weakness Psych Reports no additional complaints Endo Reports no additional complaints Physical Exam Const General: healthy appearing and no acute distress Orientation/consciousness: patient oriented x3 HEENT Head: Yes normal to inspection Ears: hearing grossly normal bilaterally Mouth: Normal oral and palatal mucosa present Resp Effort & Inspection: normal respiratory effort and able to speak in complete sentences Auscultation: clear to auscultation bilaterally Cardio Jugular venous distension: no JVD Rate: regular rate Rhythm: regular rhythm Heart sounds: S1 normal heart sound present and S2 normal heart sound present Bruits: no abdominal aortic bruits, no carotid bruits, no femoral bruits and no renal bruits Peripheral pulses: Peripheral pulses 2+ throughout GI Inspection: Yes normal to inspection Palpation (GI): No Abdominal aortic bruit present Skin General skin exam: no rashes or lesions noted Wounds: no wounds Hair: normal Neuro General: patient oriented x3 Cranial nerves: Yes Normal hearing present Cognition (Neuro): normal cognition Gait exam (Neuro): Normal gait present Motor exam (neuro): 5/5 motor strength present throughout Sensory Exam: No Sensory deficit (Neuro) Extrem Other: Right TMA site: measuring 4.3x4.2cm, decreased from last visit. Tyler/red granulation tissue noted in wound bed. Very small amount of yellow slough noted on the lateral aspect of the wound, unable to be debrided. Not painful to palpation. General: Yes normal to inspection, Yes full ROM, Yes capillary refill normal and Yes normal gait Assessment & Plan Assessment & Plan (1) PAD (peripheral artery disease): Comment: 08/31/2023 - right transmetatarsal amputation Code(s): I73.9 - Peripheral vascular disease, unspecified Category: Medical Plan: Belkys is presenting today with her son for a follow up to wound vac placement on 12/05. The son states that she used the wound vac for a total of 3 days; she could not tolerate the noise (particularly at night) and she continually shut it off. Also, not all of the VNA staff that goes to her house did not know how to change the wound vac, despite us reaching out to them about sending nurses that can change it. We will have her continue with the current wound care changes of alginate, 4x4s, and kerlix wrap, to be changed 3/week or daily, depending on drainage. We will order a new wound vac change dressing (the new all in one piece) and have them follow up with us in 2w, bringing in the wound vac, to make the changes easier for the family/VNA staff. If there are any questions or concerns, please do not hesitate to reach out to us. Coding Level of Care Code Est Pt Level 3 (39124) Diagnoses PAD (peripheral artery disease) I73.9
--- OUTSIDE RECORDS SUMMARY | 2024-12-31 14:49 | XMS_ITS | Clinical Summary ---
Author Organization [facility] Address [address] [place] [address] Care Team Providers Care Children'S Attendant Name Role Phone ManiUna SAURABH Primary Care Provider [phone] Allergies Active Allergy Reactions Criticality Noted Date [...] Bone Density (Females,Ages 65 and older) 12/03/2015 COVID-19 Vaccine ( season) 2024 Influenza Vaccine 03/21/2025 06/08/2020, , 07/18/2017, Additional history exists Hemoglobin A1C Discontinued 06/11/2021, 09/21, 06/08/2020, Additional history exists Hepatitis B Vaccines Aged Out No long er eligible based on patient's age to complete this topic Insurance MEDICARE PART A & B [facility] Care Teams Children'S Attendant Relationship Specialty Start Date End Date Una Singleton NP [address] [place] [address] [address] [place], [place] [id number] PCP - General Adult Health - PA/APNP/CLEAR COAT SPRAYER/SOLUTIONS ARCHITECT CONSULTANT 11/18/21
--- OUTSIDE RECORDS SUMMARY | 2024-12-31 14:49 | XMS_ITS | Clinical Summary ---
Author Organization [facility], Address [address] [facility] [address] [place] [address] Phone Care Team Providers Care Camp Maintenance Supervisor Name Role Phone Una Telles NP Primary [...] ophthalmology and book appt w [facility] or [facility] endocrinology DM w nephropathy, neuropathy & [...] Recently Relevant to Health Maintenance Insurance Medicaid [place] Medicare Care Teams Camp Maintenance Supervisor Relationship Specialty Start Date End Date Una Telles NP PCP - General 06/25/19
== END 2024-12-31 14:14 | disposition home or self-care (01) ==
LOC: HO.HVS 13:42
PROVIDERS: PCP Nurse Practitioner Family; Visit Provider Physician Assistant Surgical
DX: I73.9 Peripheral vascular disease, unspecified (principal)
CPT/HCPCS: 99213

== ENCOUNTER → 2024-12-31 13:41 | Outpatient (BNVA) | payer MEDICARE, MEDICAID, SELFPAY | PROVIDERS: PCP Nurse Practitioner Family; Visit Provider Physician Assistant Surgical | DX: I73.9 Peripheral vascular disease, unspecified (principal) | CPT/HCPCS: 99212 ==

== ENCOUNTER 2025-01-03 11:44 | Outpatient (AMB) | payer MEDICARE, MEDICAID, SELFPAY ==
--- OUTSIDE RECORDS SUMMARY | 2025-01-03 11:54 | XMS_ITS | Clinical Summary ---
Author Organization [facility], Address [address] [facility] [address] [place] [address] Phone Care Team Providers Care Celery Stripper Name Role Phone Una Telles NP Primary [...] ophthalmology and book appt w [facility] or [facility] endocrinology DM w nephropathy, neuropathy [...] Recently Relevant to Health Maintenance Insurance [place] Medicare Care Teams Celery Stripper Relationship Specialty Start Date End Date Una Telles NP PCP - General 06/25/19
--- OUTSIDE RECORDS SUMMARY | 2025-01-03 11:54 | XMS_ITS | Clinical Summary ---
Author Organization [facility] Address [address] [place] [address] Care Team Providers Care Spring Winder Name Role Phone ManiUna SAURABH Primary Care Provider [phone] Allergies Active Allergy Reactions Criticality Noted Date [...] topic Insurance MEDICARE PART A & B [facility] Care Teams Spring Winder Relationship Specialty Start Date End Date Una Singleton NP [address] [place] [address] [address] [place], [place] [id number] PCP - General Adult Health - PA/APNP/PRE FABRICATOR/PLATINUM AND PALLADIUM KETTLE TENDER 11/18/21
--- NOTE | 2025-01-03 12:23 | HO.NEPHOV ---
Vital Signs 01/03/25 12:24 Height 5 ft 4 in BP 176/80 H Blood Pressure Location Rt brachial Position Sitting Pulse 74 Pulse Source Pulse Oximeter Pulse Oximetry (%) 97 Oxygen Delivery Method Room Air Intake Visit Reasons: 2 MO FU Government Contracts Manager Required: No Accompanied by: Son Allergies penicillin V Allergy (Unknown, Verified 01/03/25 12:24) RSH,ITCHY HPI Comments Details: 74-year-old female with peripheral arterial disease status post left BKA, essential hypertension, insulin-dependent diabetes mellitus was seen today for follow up of her CKD. She had normocytic anemia . She denies SOB, orthopnea or PND. She has H/O recurrent ANNIE on CKD3b. due to cardiorenal syndrome. She has not had any blood work recently. She denies any chest pain, pedal edema or urinary symptoms. She does not take any nonsteroidal anti-inflammatories. She tries to maintain good hydration. She has not taken her BP medications this morning. [facility] Medical History CKD (chronic kidney disease) stage 4, GFR 15-29 ml/min Congestive heart failure Acute systolic CHF (congestive heart failure) Essential hypertension PAD (peripheral artery disease) Hypertension Mood disorder Diabetes Surgical History History of transmetatarsal amputation of right foot (08/31/23) History of left below knee amputation History of femoral angiogram History of left below knee amputation Pacemaker Social History Household Members: Family and Children Housing: House Do you presently have visiting nurse or other home services: No Unable to assess alcohol history related to: Unknown Alcohol intake: current Alcohol intake frequency: does not drink Patient Tobacco Use Status: Never used Tobacco service: No Current occupational status: retired Review of Systems Const All systems reviewed & are unremarkable except as noted in HPI and below Physical Exam Vital Signs: Last Vital Signs Pulse 74 01/03/25 12:24 BP 176/80 H 01/03/25 12:24 Pulse Ox 97 01/03/25 12:24 Oxygen Delivery Method Room Air 01/03/25 12:24 Const General: comfortable and no acute distress Orientation/consciousness: patient oriented x3 HEENT Head: Yes normocephalic Mouth: Normal oral and palatal mucosa present Eyes EOM: EOMs intact bilaterally Neck Neck: Yes supple Resp Auscultation: clear to auscultation bilaterally Cardio Jugular venous distension: no JVD Rate: regular rate GI Palpation (GI): Soft to palpation Auscultation: normal bowel sounds General: Yes no CVA tenderness Back/Spine/Pelvis Back: no CVA tenderness Skin General skin exam: no rashes or lesions noted Neuro General: patient oriented x3 and moves all extremities Results Reviewed Nephrology Results: Hgb 10.6 g/dl (12.0-16.0) L 01/03/25 WBC 5.8 X10*3/uL (4.8-10.8) 01/03/25 Plt Count 235 X10*3/uL (160-400) 01/03/25 Sodium 136 mmol/L (135-145) 01/03/25 Potassium 5.5 mmol/L (3.3-5.1) H 01/03/25 Chloride 105 mmol/L (96-108) 01/03/25 Carbon Dioxide 24 mmol/L (22-29) 01/03/25 BUN 49 mg/dL (9-16) H 01/03/25 Creatinine 2.30 mg/dL (0.5-1.4) H 01/03/25 Calcium 9.0 mg/dL (8.4-10.2) 01/03/25 Phosphorus 3.4 mg/dL (2.7-4.5) 01/03/25 PTH Intact 248.1 pg/mL (8.7-77.1) H 10/30/24 Assessment & Plan Assessment & Plan (1) Essential hypertension: Code(s): I10 - Essential (primary) hypertension Category: Medical (2) CKD (chronic kidney disease) stage 3, GFR 30-59 ml/min: Code(s): N18.30 - Chronic kidney disease, stage 3 unspecified Category: Medical Qualifiers: Chronic kidney disease stage 3 subtype: stage 3b (GFR 30-44) Qualified Code(s): N18.32 - Chronic kidney disease, stage 3b (3) Anemia in chronic kidney disease (CKD): Code(s): N18.9 - Chronic kidney disease, unspecified; D63.1 - Anemia in chronic kidney disease Category: Medical Qualifiers: Chronic kidney disease stage: stage 4 (GFR 15-29) Qualified Code(s): N18.4 - Chronic kidney disease, stage 4 (severe); D63.1 - Anemia in chronic kidney disease (4) Hyperkalemia: Code(s): E87.5 - Hyperkalemia Category: Medical (5) Secondary hyperparathyroidism (of renal origin): Code(s): N25.81 - Secondary hyperparathyroidism of renal origin Category: Medical Plan Belkys has CKD and had recurrent ANNIE on CKD recently due to CRS. Her serum creatinine may be at a new baseline. She has H/O heart failure which has resolved. Her CKD is likely from vascular disease. Her urine output is good. She can continue her current medications for now . She will be a candidate for Procrit injections in the future. I started her on Kayexalate 30 Gram by mouth once a week. She will need activated Vitamin D soon. I did not make any other medication changes today. She should avoid nonsteroidal anti-inflammatory medications and maintain good hydration. Follow-up blood work ordered , answered her and her son's questions. Follow-up given Orders: Orders Creatinine 01/03/25 D63.1 - Anemia in chronic kidney disease, I10 - Essential (primary) hypertension, N18.32 - Chronic kidney disease, stage 3b, N18.4 - Chronic kidney disease, stage 4 (severe) Blood Urea Nitrogen 01/03/25 D63.1 - Anemia in chronic kidney disease, I10 - Essential (primary) hypertension, N18.32 - Chronic kidney disease, stage 3b, N18.4 - Chronic kidney disease, stage 4 (severe) Electrolytes 01/03/25 D63.1 - Anemia in chronic kidney disease, I10 - Essential (primary) hypertension, N18.32 - Chronic kidney disease, stage 3b, N18.4 - Chronic kidney disease, stage 4 (severe) Complete Blood Count Auto Diff 01/03/25 D63.1 - Anemia in chronic kidney disease, I10 - Essential (primary) hypertension, N18.32 - Chronic kidney disease, stage 3b, N18.4 - Chronic kidney disease, stage 4 (severe) Ferritin 01/03/25 D63.1 - Anemia in chronic kidney disease, I10 - Essential (primary) hypertension, N18.32 - Chronic kidney disease, stage 3b, N18.4 - Chronic kidney disease, stage 4 (severe) IRON PROFILE 01/03/25 D63.1 - Anemia in chronic kidney disease, I10 - Essential (primary) hypertension, N18.32 - Chronic kidney disease, stage 3b, N18.4 - Chronic kidney disease, stage 4 (severe) Medications: New sodium polystyrene sulfonate 30 grams PO .Q week 453.6 grams 0RF Coding Level of Care Code Est Pt Level 4 (24228) Diagnoses Essential hypertension I10 Stage 3b chronic kidney disease N18.32 Chronic kidney disease stage 3 subtype: stage 3b (GFR 30-44) Anemia in stage 4 chronic kidney disease N18.4; D63.1 Chronic kidney disease stage: stage 4 (GFR 15-29) Hyperkalemia E87.5 Secondary hyperparathyroidism (of renal origin) N25.81
[2025-01-03 12:24] VITALS: BP 176/80; PULSE 74; O2SAT 97
== END 2025-01-03 12:46 | disposition home or self-care (01) ==
LOC: HO.HKA 11:45
PROVIDERS: PCP Nurse Practitioner Family; Visit Provider Internal Medicine Nephrology
DX: I12.9 Hypertensive chronic kidney disease with stage 1 through stage 4 chronic kidney disease, or unspecified chronic kidney disease (principal); N18.32 Chronic kidney disease, stage 3b; N18.4 Chronic kidney disease, stage 4 (severe); D63.1 Anemia in chronic kidney disease; E87.5 Hyperkalemia; N25.81 Secondary hyperparathyroidism of renal origin
CPT/HCPCS: 99214

== ENCOUNTER → 2025-01-03 11:44 | Outpatient (BNVA) | payer MEDICARE, MEDICAID, SELFPAY | PROVIDERS: PCP Nurse Practitioner Family; Visit Provider Internal Medicine Nephrology | DX: Z13.89 Encounter for screening for other disorder (principal) | CPT/HCPCS: 99212 ==

== ENCOUNTER 2025-01-03 12:52 | Outpatient (REF) | payer MEDICARE, MEDICAID, SELFPAY ==
--- OUTSIDE RECORDS SUMMARY | 2025-01-03 12:56 | XMS_ITS | Clinical Summary ---
Author Organization [facility], Address [address] [place] [address] Phone Care Team Providers Care Collection Coordinator Name Role Phone Una Telles NP Primary [...] and book appt w [facility] or [facility] endocrinology DM w nephropathy, neuropathy & [...] Recently Relevant to Health Maintenance Insurance Medicaid [place] Medicare Care Teams Collection Coordinator Relationship Specialty Start Date End Date Una Telles NP PCP - General 06/25/19
--- OUTSIDE RECORDS SUMMARY | 2025-01-03 12:56 | XMS_ITS | Clinical Summary ---
Author Organization [facility] Address [address] [place] [address] Care Team Providers Care Electronic Device Repairer Name Role Phone ManiUna SAURABH Primary Care Provider [phone] Allergies Active Allergy Reactions Criticality Noted Date [...] topic Insurance MEDICARE PART A & B [facility] Care Teams Electronic Device Repairer Relationship Specialty Start Date End Date Una Singleton NP [address] [place] [address] [address] [place], [place] [id number] PCP - General Adult Health - PA/APNP/COKE INSPECTOR/HUMAN RESOURCES FILE CLERK 11/18/21
[2025-01-03 13:50] LABS: MANUAL DIFF FLAG NO
[2025-01-03 14:01] LABS: Basophils Percent Auto 0.5 % (0-2); Eosinophils Absolute Auto 0.1 X10*3/uL (0.0-0.4); Eosinophils Percent Auto 1.2 % (0-4); Hematocrit 33.8 % (37.0-47.0); Hemoglobin 10.6 g/dl (12.0-16.0); Imm Gran Abs Auto 0.02 X10*3/uL (0.00-0.03); Imm Gran Pct Auto 0.3 % (0.0-0.4); Lymphocytes Absolute Auto 1.2 X10*3/uL (1.2-4.9); Lymphocytes Percent Auto 21.5 % (20-40); Mean Corpuscular HGB Conc 31.4 g/dl (31.0-35.0); Mean Corpuscular Hemoglobin 25.1 pg (27.0-33.0); Mean Corpuscular Volume 80.1 fL (80.0-98.0); Mean Platelet Volume 10.8 fL (9.4-12.3); Monocytes Absolute Auto 0.7 X10*3/uL (0.1-1.2); Monocytes Percent Auto 11.2 % (2-11); Neutrophils Absolute Auto 3.8 x10*3/uL (2.0-8.3); Neutrophils Percent Auto 65.3 % (45-73); Platelet Count 235 X10*3/uL (160-400); Red Blood Count 4.22 X10*6/uL (4.20-5.50); Red Cell Distribution Width 17.2 % (11.0-16.0); White Blood Count 5.8 X10*3/uL (4.8-10.8)
[2025-01-03 14:22] LABS: Anion Gap 13 (12-20); Blood Urea Nitrogen 49 mg/dL (9-16); Carbon Dioxide 24 mmol/L (22-29); Chloride 105 mmol/L (96-108); Estimated Glomerular Filt Rate 21; Iron 55 mcg/dL (30-160); Percent Iron Saturation 24 % (15-50); Phosphorus 3.4 mg/dL (2.7-4.5); Potassium 5.5 mmol/L (3.3-5.1); Sodium 136 mmol/L (135-145); Total Iron Binding Capacity 234 mcg/dL (228-428); Unsaturated Iron Binding 179 ug/dL
[2025-01-03 14:37] LABS: Ferritin 190 ng/mL (10-250)
== END 2025-01-03 12:53 | disposition home or self-care (01) ==
LOC: HO.10HDL 12:52
PROVIDERS: Visit Provider Internal Medicine Nephrology
DX: I12.9 Hypertensive chronic kidney disease with stage 1 through stage 4 chronic kidney disease, or unspecified chronic kidney disease (principal); D63.1 Anemia in chronic kidney disease; N18.4 Chronic kidney disease, stage 4 (severe); N18.9 Chronic kidney disease, unspecified; N18.32 Chronic kidney disease, stage 3b; N25.81 Secondary hyperparathyroidism of renal origin; E87.5 Hyperkalemia
CPT/HCPCS: 36415; 80051; 82310; 82565; 82728; 83540; 84100; 84520; 85025; 99212

== ENCOUNTER 2025-01-23 11:40 | Outpatient (AMB) | payer MEDICARE, MEDICAID, SELFPAY ==
[2025-01-23 11:42] VITALS: BMI 24.0
--- NOTE | 2025-01-23 11:42 | A.OFFVIS_ITS ---
Vital Signs 01/23/25 11:42 Height 5 ft 4 in Weight 140 lb BMI 24.0 Intake Visit Reasons: 2 week follow up Intake Note: follow up Right Transmet amp Supervisor Dog License Officer Required: No Accompanied by: Self / Same As Patient Allergies penicillin V Allergy (Unknown, Verified 01/23/25 11:48) RSH,ITCHY HPI HPI 2 week follow up: Details: Belkys is presenting today for a 2w follow up/wound check. She continues with [facility] services 3/week, whom is doing the dressing changes. Her son is also doing dressing changes as needed. They note that the wound looks smaller and a little better. They have not used the wound vac since it was first applied, 12/05. They used the wound vac for about 1-2w; the pt was not tolerating it, it was too noisy. She has no new concerns today. ON LICENSE OF [facility] Medical History CKD (chronic kidney disease) stage 4, GFR 15-29 ml/min Congestive heart failure Acute systolic CHF (congestive heart failure) Essential hypertension PAD (peripheral artery disease) Hypertension Mood disorder Diabetes Surgical History (Updated 01/23/25 @ 12:59 by Lillie Washington PA-C) History of transmetatarsal amputation of right foot (08/31/23) History of left below knee amputation History of femoral angiogram History of left below knee amputation Pacemaker Social History Household Members: Family and Children Housing: House Do you presently have visiting nurse or other home services: No Unable to assess alcohol history related to: Unknown Alcohol intake: current Alcohol intake frequency: does not drink Patient Tobacco Use Status: Never used Tobacco service: No Current occupational status: retired Review of Systems Const Reports as per HPI and Denies weakness ENT Reports Normal hearing present and Denies dizziness Card Reports as per HPI, Denies chest pain, Denies chest pain at rest, Denies chest pain with activity, Denies dyspnea and Denies dyspnea on exertion Resp Reports as per HPI, Denies cough, Denies dyspnea and Denies dyspnea on exertion GI Reports as per HPI, Denies abdominal pain, Denies nausea and Denies vomiting Musc Denies numbness Skin/Breast Reports as per HPI, Denies erythema and Denies wounds Neuro Reports Normal hearing present, Denies dizziness, Denies numbness, Denies Sensory deficit (Neuro) and Denies weakness Psych Reports no additional complaints Endo Reports no additional complaints Physical Exam Vital Signs: BMI result Body Mass Index 24.0 Const General: healthy appearing and no acute distress Orientation/consciousness: patient oriented x3 HEENT Head: Yes normal to inspection Ears: hearing grossly normal bilaterally Mouth: Normal oral and palatal mucosa present Resp Effort & Inspection: normal respiratory effort and able to speak in complete sentences Auscultation: clear to auscultation bilaterally Cardio Jugular venous distension: no JVD Rate: regular rate Rhythm: regular rhythm Heart sounds: S1 normal heart sound present and S2 normal heart sound present Bruits: no abdominal aortic bruits, no carotid bruits, no femoral bruits and no renal bruits Peripheral pulses: Peripheral pulses 2+ throughout GI Inspection: Yes normal to inspection Palpation (GI): No Abdominal aortic bruit present Skin General skin exam: no rashes or lesions noted Wounds: no wounds Hair: normal Neuro General: patient oriented x3 Cranial nerves: Yes Normal hearing present Cognition (Neuro): normal cognition Gait exam (Neuro): Normal gait present Motor exam (neuro): 5/5 motor strength present throughout Sensory Exam: No Sensory deficit (Neuro) Extrem Other: Right TMA site: measuring 3.8cmx2.9cm, significantly decreased from 12/31, when it was 4.3x4.2cm. [place] and red granulation tissue noted in wound bed as well as a small amount of blood, when bandage was removed. Very small amount of yellow slough noted on the lateral aspect of the wound, able to debride some of it today without difficulty. Not painful to palpation. Minimal serous drainage noted. General: Yes normal to inspection, Yes full ROM, Yes capillary refill normal and Yes normal gait Assessment & Plan Assessment & Plan (1) History of transmetatarsal amputation of right foot: Onset Date: 08/31/23 Code(s): Z89.431 - Acquired absence of right foot Category: Surgical Plan: Belkys is presenting today with her son for a 2w follow up for a wound check. She continues with VNA services. The pt would not like to continue with the wound vac at this point; we discussed to reach out to the company and return the equipment when convenient. We discussed that the site has gotten much smaller and there is very healthy tissue in most of the wound bed and there is scabbing noted around the edges. There is a small section with yellow slough, which we debrided some today. We will continue with dressing changes of Alginate, 4x4s, and kerlix wrap, to be done at least 3/week, based on drainage. We will have her follow up in 3w for the next wound check. Thank you for allowing us to participate in the patient's care. If there are any questions or concerns, please do not hesitate to reach out to us. Coding Level of Care Code Est Pt Level 3 (16153) Diagnoses History of transmetatarsal amputation of right foot Z89.431
--- OUTSIDE RECORDS SUMMARY | 2025-01-23 13:55 | XMS_ITS ---
Author Organization [facility] Care Team Providers Care Onshore Diver Name Role Phone Aster Cochran Unavailable Unavailable Meghan Perez Unavailable Unavailable Bell Bryant Unavailable Unavailable Somarguerite, Pastora Unavailable Unavailable Neo, Renate Unavailable Unavailable Marcelina Gail Unavailable Unavailable Neelima COMPUTER EDUCATION TEACHER, Ara Marcos Unavailable Unavailable Pallavi Adame Unavailable Unavailable Pallavi Soto Unavailable Unavailable Rita Vargas Unavailable Unavailable Maribel Barnett Unavailable Unavailable Ibeth Che Unavailable Unavailable Dorcas Mariscal Unavailable Unavailable Ginny De Unavailable Unavailable Allergies and adverse reactions Code CodeSystem Substance Reaction Severity StartDate Concern Status 7984 RXNORM Penicillin Eruption (code- 029256626, SNOMED CT); Pruritic disorder of skin (code- 6266450966, SNOMED CT) Moderate 09/05/2023 active Care Team Name Role Address Phone Organization Dates Bell Bryant PCP [address], [place], [address], [place] (Office): : [facility] 09/05/2023 - 01/16/2024 Aster Cochran [address], [place], [address], [place] (Office): : [phone] [facility] 09/05/2023 - 01/16/2024 [place], [address], [facility] (Office): : [facility] 09/05/2023 - 01/16/2024 Pastora Oh [address], [place], [address], [facility] (Office): : [phone] [facility] 09/05/2023 - 01/16/2024 Renate Larson [address] [place] [address] [address], [place], [address], [facility] (Office): : [phone] [facility] 09/05/2023 - 01/16/2024 Gail Hewitt [address] [place] [address] 1, [place], [address], [facility] (Office): : [facility] 09/05/2023 - 01/16/2024 Ara Ortez NP [address], [facility] [address], [facility] (Office): [facility] 09/05/2023 - 01/16/2024 Pallavi Adame [place], [facility] 09/05/2023 - 01/16/2024 Pallavi Soto [address] [place] [address] 1, [place], [address], [facility] (Office): : [facility] 09/05/2023 - 01/16/2024 Rita Vargas [place], [facility] Efrem isreal [facility] 09/05/2023 - 01/16/2024 Maribel Barnett [address] [place] [address] [address], [place], [address], [facility] (Office): : [phone] [facility] 09/05/2023 - 01/16/2024 Ibeth Che [address], [place], [address], [facility] (Office): : [phone] [facility] 09/05/2023 - 01/16/2024 Dorcas Mariscal [address], [place], [address], [facility] (Office): : [phone] [facility] 09/05/2023 - 01/16/2024 Ginny De [address], [place], [address], [facility] (Office): : [facility] 09/05/2023 - 01/16/2024 Immunizations Immunization Status Vaccine Details Vaccine Code CodeSystem Date Notes PCV 13 completed pneumococcal conjugate vaccine, 13 valent 133 CVX created date: 09/08/2023 administere d date: 07/18/2017 PPSV23 completed pneumococcal polysaccharide vaccine, 23 valent 33 CVX created date: 09/08/2023 administere d date: 08/01/2018 Influenza vaccine completed Influenza, adjuvanted, inactivated, quadrivalent, injectable, preservative free 205 CVX created date: 09/08/2023 administere d date: 09/28/2022 Covid-19 cancelled SARS-COV-2 (COVID-19) vaccine, mRNA, spike protein, LNP, preservative free, quan-sucrose, 30 mcg/0.3 mL dose 309 CVX created date: 10/30/2023 consent date: 10/30/2023 Influenza, high dose seasonal cancelled Influenza, high-dose, split virus, trivalent, injectable, preservative free 135 CVX created date: 10/30/2023 consent date: 10/30/2023 Medications Section Medication Name Status Code CodeSystem Dose Route Frequency Admin Type Sig Text Start Date End Date Carvedilol Oral Tablet 6.25 MG active 19991020 RXNORM 1 tablet Oral two times a day Routine Give 1 tablet by mouth two times a day for high blood pressu re 2023 - Aspirin 81 Oral Tablet Chewable active 81 mg Oral one time a day Routine Give 81 mg by mouth one time a day for blood clot preven tion 2023 - Ipratropium-A lbuterol Inhalation Solution 0.5-2.5 (3) MG/3ML active 3605311 RXNORM 3 ml Inhalat ion as needed PRN 3 ml inhale orally every 3 hours as needed for SOB 2023 - Famotidine Oral Tablet 20 MG active 251519 RXNORM 1 tablet Oral one time a day Routine Give 1 tablet by mouth one time a day for GERD 2023 - Polyethylene Glycol 3350 Powder active 17 gram Oral in the morning Routine Give 17 gram orally in the mornin g for consti pation 2023 - Melatonin Oral Tablet 3 MG active 059541 RXNORM 2 tablet Oral at bedtime Routine Give 2 tablet by mouth at bedtim e for insomn ia 2023 - Docusate Sodium Oral Tablet 100 MG active 5504556 RXNORM 1 tablet Oral at bedtime Routine Give 1 tablet by mouth at bedtim e for consti pation 2023 - Clopidogrel Bisulfate Oral Tablet 75 MG active 634680 RXNORM 75 mg Oral one time a day Routine Give 75 mg by mouth one time a day for blood clot preven tion 2023 - Ferrous Gluconate Oral Tablet active 1 tablet Oral one time a day Routine Give 1 tablet by mouth one time a day for supple ment 2023 - Milk of Magnesia Suspension 400 MG/5ML active 014447 RXNORM 30 ml Oral as needed PRN Give 30 ml by mouth as needed for Consti pation (Step 1) As needed if no bowel moveme nt for three days. (Do not use for Hemodi alysis patien ts). 2023 - Acetaminophen Tablet 325 MG active 347375 RXNORM 2 tablet Oral as needed PRN Give 2 tablet by mouth every 6 hours as needed for Pain Pain Total dosage for acetam inophe n and medica tions that contai n acetam inophe n should not exceed 3 grams / 24 hours. AND Give 2 tablet by mouth every 6 hours as needed for Fever greate r than 100.0F Total dosage for acetam inophe n and medica tions that contai n acetam inophe n should not exceed 3 grams / 24 hours. 2023 - 492834 RXNORM 2 tablet Oral as needed PRN Give 2 tablet by mouth every 6 hours as needed for Pain Pain Total dosage for acetam inophe n and medica tions that contai n acetam inophe n should not exceed 3 grams / 24 hours. AND Give 2 tablet by mouth every 6 hours as needed for Fever greate r than 100.0F Total dosage for acetam inophe n and medica tions that contai n acetam inophe n should not exceed 3 grams / 24 hours. 2023 - Bisacodyl Suppository 10 MG active 165190 RXNORM 1 suppos itory Rectal as needed PRN Insert 1 suppos itory rectal ly as needed for If no bowel moveme nt for 8 hours after Milk of Magnes ia 2023 - hydrALAZINE HCl Oral Tablet 25 MG active 644777 RXNORM 3 tablet Oral two times a day Routine Give 3 tablet by mouth two times a day for Blood pressu re Take 3 tablet s of 25mg to total of 75mg. 2023 - Lantus Subcutaneous Solution 100 UNIT/ML active 117246 RXNORM 25 unit Subcuta neous at bedtime Routine Inject 25 unit subcut aneous ly at bedtim e for diabet es 2023 - Silvadene External Cream 1 % active 255667 RXNORM n/a n/a Topical every day shift Routine Apply to right amp site topica lly every day shift for wound care 2023 - Insulin Lispro-aabc Injection Solution 100 UNIT/ML active n/a n/a Subcuta neous before meals Routine Inject as per ashutosh monroy scale: if 111 - 150 = 0; 151 - 200 = 2; 201 - 250 = 4; 251 - 300 = 6; 301 - 350 = 8; 351 - 400 = 10 IF GREATE R THAN 400 CALL , subcut aneous ly before meals for Diabet es 2023 - Atorvastatin Calcium Oral Tablet 20 MG active 539127 RXNORM 20 mg Oral at bedtime Routine Give 20 mg by mouth at bedtim e for elevat ed lipids relate d to HYPERL IPIDEM IA, UNSPEC IFIED (E78.5 ) 2023 - Centrum Silver 50+Women Oral Tablet active 1 tablet Oral one time a day Routine Give 1 tablet by mouth one time a day relate d to HYPO-O SMOLAL ITY AND HYPONA TREMIA (E87.1 ) use Reside nts own supply 2023 - Isosorbide Mononitrate ER Oral Tablet Extended Release 24 Hour 120 MG active 514923 RXNORM 120 mg Oral one time a day Routine Give 120 mg by mouth one time a day for HTN 2023 - Mental Status Section Date Assessment Total Score Description 01/16/2024 BIMS 11 moderate cognit christi impairment CAM 0 No delirium ind icated PHQ-9 00 11/30/2023 BIMS 11 moderate cognit christi impairment CAM 0 No delirium ind icated PHQ-9 00 Problems Problem # Description Date of onset Resolved Date Code CodeSystem Concern Status 1 OTHER FATIGUE [address] active 2 UNSPECIFIED LACK OF COORDINATION [address] active 3 ACQUIRED ABSENCE OF RIGHT FOOT [address] active 4 CHRONIC KIDNEY DISEASE, STAGE 3B [address] active 5 CHRONIC TOTAL OCCLUSION OF ARTERY OF THE EXTREMITIES [address] active 6 ELEVATION OF LEVELS OF LIVER TRANSAMINASE LEVELS [address] active 7 ENCOUNTER FOR ORTHOPEDIC AFTERCARE FOLLOWING SURGICAL AMPUTATION [address] active 8 HYPO-OSMOLALITY AND HYPONATREMIA [address] active 9 DIVISION PLANT ENGINEER (CURRENT) USE OF ANTITHROMBOTICS/A NTIPLATELETS [address] active 10 LONGTERM (CURRENT) USE OF ASPIRIN [address] active 11 MOOD DISORDER DUE TO KNOWN PHYSIOLOGICAL CONDITION, UNSPECIFIED [address] active 12 NON-PRESSURE CHRONIC ULCER OF OTHER PART OF RIGHT FOOT WITH UNSPECIFIED SEVERITY [address] active 13 PARTIAL TRAUMATIC AMPUTATION OF RIGHT FOOT, LEVEL UNSPECIFIED, SUBSEQUENT ENCOUNTER [address] active 14 SEPSIS, UNSPECIFIED ORGANISM [address] active 15 TYPE 2 DIABETES MELLITUS WITH UNSPECIFIED COMPLICATIONS [address] active 16 ACQUIRED ABSENCE OF LEFT LEG BELOW KNEE [address] active 17 ANEMIA, UNSPECIFIED [address] active 18 COMPLETE TRAUMATIC AMPUTATION AT LEVEL BETWEEN KNEE AND ANKLE, LEFT LOWER LEG, SUBSEQUENT ENCOUNTER [address] active 19 ESSENTIAL (PRIMARY) HYPERTENSION [address] active 20 HYPERLIPIDEMIA, UNSPECIFIED [address] active 21 LONGTERM (CURRENT) USE OF INSULIN [address] active 22 OTHER ABNORMALITIES OF GAIT AND MOBILITY [address] active 23 PERIPHERAL VASCULAR DISEASE, UNSPECIFIED [address] active 24 TYPE 2 DIABETES MELLITUS WITH DIABETIC PERIPHERAL ANGIOPATHY WITHOUT GANGRENE [address] active 25 TYPE 2 DIABETES MELLITUS WITH HYPERGLYCEMIA [address] active 26 TYPE 2 DIABETES MELLITUS WITHOUT COMPLICATIONS [address] active 27 WEAKNESS 0 79066959 edPULSE active Reason for Referral No Reasons for Referral Entered Social History Social History Observation Description Start Date End Date Code Code System Current Smoking Status Tobacco smoking consumption unknown 812064196 SNOMED CT Sex Assigned At Female 1950 [address]-1 [facility] Gender Identity Vital Signs Code Code System Vitals Name Values and Units Timing Information 2339-0 LOINC Blood Sugar Value=1.0 Units=mg/dL 55143-2 LOINC Pain Level Value=1.0 01/16/2024 8462-4 LOINC Blood Pressure-Diastolic Value=72 Un its=mmHg 01/16/2024 8480-6 LOINC Blood Pressure-Systolic Vdhwt=832 Un its=mmHg 01/16/2024 8867-4 [facility] Heart rate Value=84.0 Units=/min 27310-4 [facility] Weight Geohl=866.4 Units=Lbs 9279-1 [facility] Respiratory Rate Value=18.0 Units=/m in 11/01/2023 8310-5 [facility] Body Temperature Value=97.7 Units=?? F 11/01/2023 89247-3 [facility] O2 % BldC Oximetry Value=97.0 Units= % 11/01/2023 8302-2 [facility] Height Value=66.0 Units=Inches 04/02/2020
== END 2025-01-23 12:46 | disposition home or self-care (01) ==
LOC: HO.HVS 11:41
PROVIDERS: PCP Nurse Practitioner Family; Visit Provider Physician Assistant Surgical
DX: Z89.431 Acquired absence of right foot (principal)
CPT/HCPCS: 99213

== ENCOUNTER → 2025-01-23 11:40 | Outpatient (BNVA) | payer MEDICARE, MEDICAID, SELFPAY | PROVIDERS: PCP Nurse Practitioner Family; Visit Provider Physician Assistant Surgical | DX: Z47.81 Encounter for orthopedic aftercare following surgical amputation (principal); Z89.431 Acquired absence of right foot | CPT/HCPCS: 99212 ==

== ENCOUNTER 2025-02-18 14:45 | Outpatient (AMB) | payer MEDICARE, MEDICAID, SELFPAY ==
--- NOTE | 2025-02-18 14:46 | A.OFFVIS_ITS ---
Intake Visit Reasons: 3 wk R TMA check Intake Note: Patient presents for follow up right TMA check. Patient has no new complaints. Patient states her dressing changes are once a week. Accompanied by: Son Allergies penicillin V Allergy (Unknown, Verified 02/18/25 14:47) RSH,ITCHY HPI HPI 3 wk R TMA check: Details: Belkys is presenting today with her son for a 3w check of her right TMA site. She continues with daily dressing changes, mostly with her family. She does have VNA services, but is down to 1/week. She states she is eating ok and her blood sugars have been controlled. She has no new concerns today. [facility] Medical History CKD (chronic kidney disease) stage 4, GFR 15-29 ml/min Congestive heart failure Acute systolic CHF (congestive heart failure) Essential hypertension PAD (peripheral artery disease) Hypertension Mood disorder Diabetes Surgical History History of transmetatarsal amputation of right foot (08/31/23) History of left below knee amputation History of femoral angiogram History of left below knee amputation Pacemaker Social History Household Members: Family and Children Housing: House Do you presently have visiting nurse or other home services: No Unable to assess alcohol history related to: Unknown Alcohol intake: current Alcohol intake frequency: does not drink Patient Tobacco Use Status: Never used Tobacco service: No Current occupational status: retired Review of Systems Const Reports as per HPI and Denies weakness ENT Reports Normal hearing present and Denies dizziness Card Reports as per HPI, Denies chest pain, Denies chest pain at rest, Denies chest pain with activity, Denies dyspnea and Denies dyspnea on exertion Resp Reports as per HPI, Denies cough, Denies dyspnea and Denies dyspnea on exertion GI Reports as per HPI, Denies abdominal pain, Denies nausea and Denies vomiting Musc Denies numbness Skin/Breast Reports as per HPI, Denies erythema and Denies wounds Neuro Reports Normal hearing present, Denies dizziness, Denies numbness, Denies Sensory deficit (Neuro) and Denies weakness Psych Reports no additional complaints Endo Reports no additional complaints Physical Exam Const General: healthy appearing and no acute distress Orientation/consciousness: patient oriented x3 HEENT Head: Yes normal to inspection Ears: hearing grossly normal bilaterally Mouth: Normal oral and palatal mucosa present Resp Effort & Inspection: normal respiratory effort and able to speak in complete sentences Auscultation: clear to auscultation bilaterally Cardio Jugular venous distension: no JVD Rate: regular rate Rhythm: regular rhythm Heart sounds: S1 normal heart sound present and S2 normal heart sound present Bruits: no abdominal aortic bruits, no carotid bruits, no femoral bruits and no renal bruits Peripheral pulses: Peripheral pulses 2+ throughout GI Inspection: Yes normal to inspection Palpation (GI): No Abdominal aortic bruit present Skin General skin exam: no rashes or lesions noted Wounds: no wounds Hair: normal Neuro General: patient oriented x3 Cranial nerves: Yes Normal hearing present Cognition (Neuro): normal cognition Gait exam (Neuro): Normal gait present Motor exam (neuro): 5/5 motor strength present throughout Sensory Exam: No Sensory deficit (Neuro) Extrem Other: Right TMA site: measuring 3.8cmx2.5cm, decreased slightly from 01/23, where it was 3.8x2.9cm. [place] and red granulation tissue noted in wound bed. Miniscule amount of yellow slough noted on the lateral aspect of the wound, significantly decreased from last visit. Not painful to palpation. General: Yes normal to inspection, Yes full ROM, Yes capillary refill normal and Yes normal gait Assessment & Plan Assessment & Plan (1) History of transmetatarsal amputation of right foot: Onset Date: 08/31/23 Code(s): Z89.431 - Acquired absence of right foot Category: Medical Plan: Belkys is presenting today with her son for a follow up wound check of the right TMA site. The site is slowly healing and has decreased slightly in size over the last couple of weeks. There is less slough noted in the site. She continues with VNA services once a week and her family is changing the dressing the other days. We will continue with daily dressing changes of Alginate, 4x4s, and Kerlix wrap. We will have her follow up in 3-4w for a wound check. Thank you for allowing us to participate in the patient's care. If there are any questions or concerns, please do not hesitate to reach out to us. Coding Level of Care Code Est Pt Level 4 (43869) Diagnoses History of transmetatarsal amputation of right foot Z89.431
--- OUTSIDE RECORDS SUMMARY | 2025-02-18 15:45 | XMS_ITS ---
Author Name [facility] Organization Unknown Encounters Encounter Type Encounter Reason Primary Diagnosis Location Date Emergency Periapical absce ss without sinus [facility] 11/18/2021 Care Team Organization Name Specialty Phone Email Start Date End Da te [facility] 11/19/2021 04/08/2024 [facility] Primary Care 11/18/2021 11/19/19
--- OUTSIDE RECORDS SUMMARY | 2025-02-18 15:45 | XMS_ITS | Clinical Summary ---
Author Organization [facility], Address [address] [place] [address] Phone Care Team Providers Care Obgyn Hospitalist Physician Name Role Phone Una Telles NP Primary [...] ophthalmology and book appt w [facility] endocrinology DM w nephropathy, neuropathy [...] Hemoglobin A1c (01/26/2022 8:21 AM EDT) Blood specimen (specimen) Venous blood / Unknown us Jai Jones MD LAB BLOOD ORDERABLES Final Resul t PRINT/EXTERNAL (NON-INTERFACED LABS) from Last 3 Months or Most Recently Relevant to Health Maintenance Insurance Medicaid [place] Medicare Care Teams Obgyn Hospitalist Physician Relationship Specialty Start Date End Date Una Telles NP PCP - General 06/25/19
--- OUTSIDE RECORDS SUMMARY | 2025-02-18 15:45 | XMS_ITS | Clinical Summary ---
Author Organization [facility] Address [address] [place] [address] Care Team Providers Care Wire Drawing Machine Tender Name Role Phone ManiUna SAURABH Primary Care Provider [phone] Allergies Active Allergy Reactions Criticality Noted Date [...] 77 11/19/2021 8:10 AM EDT Temperature 35.9 C (96.7 F) 11/19/2021 8:10 AM EDT Respiratory Rate 18 11/19/2021 8:10 AM EDT [...] topic Insurance MEDICARE PART A & B [facility] Care Teams Wire Drawing Machine Tender Relationship Specialty Start Date End Date Una Singleton NP [address] [place] [address] [address] [place] [address] PCP - General Adult Health - PA/APNP/HAIRSPRING CUTTER/ELECTRO TECH 11/18/21
== END 2025-02-18 15:12 | disposition home or self-care (01) ==
LOC: HO.HVS 14:45
PROVIDERS: PCP Nurse Practitioner Family; Visit Provider Physician Assistant Surgical
DX: Z89.431 Acquired absence of right foot (principal)
CPT/HCPCS: 99214

== ENCOUNTER → 2025-02-18 14:45 | Outpatient (BNVA) | payer MEDICARE, MEDICAID, SELFPAY | PROVIDERS: PCP Nurse Practitioner Family; Visit Provider Physician Assistant Surgical | DX: Z89.431 Acquired absence of right foot (principal) | CPT/HCPCS: 99212 ==

== ENCOUNTER 2025-03-20 14:19 | Outpatient (AMB) | payer MEDICARE, MEDICAID, SELFPAY ==
--- OUTSIDE RECORDS SUMMARY | 2025-03-18 13:00 | XMS_ITS | Encounter Summary ---
Author Organization [facility] Address [address] [place] [address] Phone Care Team Providers Care Maritime Guard Name Role Phone Deana Afua CNP Primary Care Provider [phone] Reason for Visit * Auth/Cert (Routine) Specialty Diagnoses / Procedures Referred By Susan t Referred To Contact Referral ID Status Reason Start Date Expiration Date Visits Re quested Visits Authorized [id number] 1 1 Encounter Details Date Type Department Care Team (Late st Contact Info) Description 03/18/2025 1:00 PM EDT Home Care Visit [facility] [address] [place] [address] Cee Peters RN [address] [place] [address] [email or web address] SN HOME VISIT Social History Tobacco Use Types Packs/Day Years Used Date Smoking Tobacco: Never Smokeless Tobacco: Never Alcohol Use Standard Drinks/Week Comments Not Currently 0 (1 standard drink = 0.6 oz pur e alcohol) none for years Home Health Assessment: Transportation Answer Date Recorded Lack of Transportation (Medical) No 03/18/2025 Lack of Transportation (Non-Medical) No 03/18/2025 Patient Unable or Declines to Respond No 03/18/2025 Child or Family Care Answer Date Record ed Do you have problems with on e of the following making it difficult for you to work, study, or receive health care? I choose not to answer 12/27/2024 Education Answer Date Recorded Are you interested in more education? Not on kaelyn e 12/16/2022 Are you concerned about learning? Not on file 12/16/2022 No 12/16/2022 No 12/16/2022 Food Answer Date Recorded Within the past 6 months we worried whether our food would run out before we got money to buy more. Never True 12/27/2024 Within the past 6 months the food we bought just didn't last and we didn't have enough money to get more. Never True Residential Stability Answer Date Recor ded What is your housing situation today? I have segun sing 12/27/2024 How many times have you move d in the past 12 months? Zero (I did not move) 12/27/2024 Paying for Meds Answer Date Recorded Do you have trouble paying for medicines? I darren se not to answer 12/27/2024 Paying Utility Bills Answer Date Record ed Do you have trouble paying y our heating or electricity bill? I choose not to answer 12/27/2024 Transportation Answer Date Recorded Has the lack of transportati on kept you from medical appointments or from getting medications? No 12/27/2024 Digital Access Answer Date Recorded No 12/27/2024 Yes 12/27/2024 Do you have reliable internet access at home? Ye s 12/27/2024 Do you have a device (e.g., phone, tablet, computer) with a working camera? Yes 12/27/2024 Intimate Partner Violence Answer Date R ecorded Are you denied basic needs s uch as food, clothing, or medical care? No 12/27/2024 In the past 12 months have y ou been in a relationship with a person who hurts, threatens, or tries to control you? No 12/27/2024 Are you denied basic needs s uch as food, clothing, or medical care? No 12/27/2024 In the past 12 months have y ou been in a relationship with a person who hurts, threatens, or tries to control you? No 12/27/2024 Comments No Sex and Gender Information Value Date Recorded Sex Assigned at Female 09/04/2018 5:38 PM EST Legal Sex Female 10:01 PM EDT Gender Identity Female 09/04/2018 5:38 PM EST Sexual Orientation Straight 09/04/2018 5: 38 PM EST Occupation Industry Job Start Date Job End Date Retired, previously worked at [employer] Not on file Not on file Not on file documented as of this encounter Last Filed Vital Signs Vital Sign Reading Time Taken Comments Blood Pressure 120/60 03/18/2025 1:16 PM EDT Pulse 86 03/18/2025 1:16 PM EDT Temperature 36.3 C (97.4 F) 03/18/2025 1:16 PM EDT Respiratory Rate 16 03/18/2025 1:16 PM EDT Oxygen Saturation 96% 03/18/2025 1:16 PM EDT Inhaled Oxygen Concentration - - Weight - - Height - - Body Mass Index - - documented in this encounter Plan of Treatment Upcoming Encounters Date Type Department Care Team (Late st Contact Info) Description 03/24/2025 3:00 AM EDT Appointment [facility] [address] [place] [address] Cee Peters RN [address] [place] [address] 04/09/2025 2:00 PM EDT Office Visit [facility] [address] [address] Altagracia Ocasio MD [address], [address] [place] [address] [email or web address] documented as of this encounter Goals Goal Patient Goal Type Associated Problems Recent Progress Patient-Stated? 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 Assessment Noted Time PHQ-2 Depression Total Score: 0 12/28/19 25 11:13 AM EDT documented as of this encounter Home Health Visit - Care Plan Visit Details Visit Type -SN HOME VISIT Discipline -Custodial Problems Problem Description Start Date Status Goals Interve ntions HH - Medication Management Disciplines: All Active Home Health Disciplines 09/26/2024 Active 1 goal linked to scheduled/document ed intervention 2 goal interventions scheduled/document ed in this visit HH - Focus of Care and Teaching Disciplines: All Active Home Health Disciplines w/RD 09/26/2024 Active 1 goal linked to scheduled/document ed intervention 1 goal intervention scheduled/document ed in this visit HH - Emergency Planning - Knowledge of Disciplines: All Active Home Health Disciplines 09/26/2024 Active 1 goal linked to scheduled/document ed intervention 2 goal interventions scheduled/document ed in this visit HH - Infection - Actual or Risk of Disciplines: All Active Home Health Disciplines 09/26/2024 Active 1 goal linked to scheduled/document ed intervention 2 goal interventions scheduled/document ed in this visit HH - Falls - Risk of Disciplines: All Active Home Health Disciplines 09/26/2024 Active 1 goal linked to scheduled/document ed intervention 2 goal interventions scheduled/document ed in this visit HH - Standard of Care Disciplines: All Active Home Health Disciplines 09/26/2024 Active 1 goal linked to scheduled/document ed intervention 4 goal interventions scheduled/document ed in this visit HH - Pain Disciplines: All Active Home Health Disciplines 09/26/2024 Active 1 goal linked to scheduled/document ed intervention 1 goal intervention scheduled/document ed in this visit HH - Edema - Actual or Risk of Disciplines: All Active Home Health Disciplines 10/09/2024 Active 1 goal linked to scheduled/document ed intervention 1 goal intervention scheduled/document ed in this visit HH - Wound Disciplines: All Active Home Health Disciplines, Custodial 10/25/2024 Active 1 goal linked to scheduled/document ed intervention 1 problem intervention scheduled/document ed in this visit 1 goal intervention scheduled/document ed in this visit HH - Medication Management Disciplines: Custodial 2024 Active 1 goal linked to scheduled/document ed intervention 1 goal intervention scheduled/document ed in this visit HH - Wound Disciplines: All Active Home Health Disciplines 01/24/2025 Active 1 goal linked to scheduled/document ed intervention 1 goal intervention scheduled/document ed in this visit Goals Goal Associated Problem Outcome Goal Met? Visit Notes HH - Safe medication management, avoid unnecessary harm related to medication errors and/or interactions HH - Medication Management No HH - Communication and collaboration to achieve patient goals HH - Focus of Care and Teaching No HH - Knowledge of options for managing care in the event of an emergency related situation. HH - Emergency Planning - Knowledge of No HH - Patient will have no new infection; any new infection that occurs will be identified and treated promptly; existing infection will resolve without complication Description: Patient and caregiver(s) will demonstrate understanding of infection prevention, monitoring, and treatment as appropriate HH - Infection - Actual or Risk of No HH - Knowledge and management of fall prevention measures. HH - Falls - Risk of No HH - Achieve care management for a safe to home/community discharge from homecare HH - Standard of Care No HH - Frequency of pain interfering with patient's activity or movement will improve with activity or movement by discharge. Description: Pain will be managed over the course of care. Patient's acceptable level of pain is 2 - less often than daily. HH - Pain No HH - Demonstrate/verbalize knowledge of causes, impacts, and risks associated with edema HH - Edema - Actual or Risk of No HH - Demonstrate/verbalize wound care management, wound/lesion will be free from complications HH - Wound No HH - Safe medication management, avoid unnecessary harm related to medication errors and/or interactions HH - Medication Management No HH - Demonstrate/verbalize wound care management, wound/lesion will be free from complications HH - Wound No Interventions Intervention Associated Problem/Goal Status Variance Visit Notes HH - I/E medication management: administration, purpose, dosages, preparation, setup, scheduling, side effects, food/drug interactions, and potential complications as indicated Description: Update patient's copy of medication list as needed. Problem:HH - Medication Management Goal:HH - Safe medication management, avoid unnecessary harm related to medication errors and/or interactions Completed HH - Complete medication review every visit and medication reconciliation as indicated. Pharmacy information: Description: SN to review medications every visit Problem:HH - Medication Management Goal:HH - Safe medication management, avoid unnecessary harm related to medication errors and/or interactions Completed HH - Focus of care, teaching completed and plan for next visit Problem:HH - Focus of Care and Teaching Goal:HH - Communication and collaboration to achieve patient goals Completed Primary Clinical Focus this Visit & Instruction Provided: Spoke with Ghazal staton prior to visit, updated need to be available for wkly wound care/assess and importance of seeing clinicians at wound clinic as ordered. Wound healing well. Wet Cotton Feeder used for visit but japanese interpreter unable to understand dialect, stating is wasn't creole. wound care done per poc, spoke with [facility] las t visit wea 02/18, next is 03/20. T/E wound care, methods to promote/maint. skin integrity, importance of offloading. Instruction Provided to: patient Response to Instruction/Teachin g: Is partially able to teach back topics. Plan for Next Visit Specific Focus & Education Needed: wound care, recert. New Orders: NA Updated Discharge Plan: WHEN WOUND HEALED HH - I/E management of care in an urgent or emergency (ER) situation: When to call your Home Care Team/911, ER plans, supplies, evacuation, when to contact local ER officials and how to stay informed Problem:HH - Emergency Planning - Knowledge of Goal:HH - Knowledge of options for managing care in the event of an emergency related situation. Completed HH - Emergency planning assessment: the emergency plan, supplies needed, emergency contact numbers and an evacuation plan were reviewed Description: Patient and Caregiver is/are knowledgeable of emergency plans. Problem:HH - Emergency Planning - Knowledge of Goal:HH - Knowledge of options for managing care in the event of an emergency related situation. Completed HH - I/E infection Description: adhere to infection precautions, infection prevention measures and s/s of infection Problem:HH - Infection - Actual or Risk of Goal:HH - Patient will have no new infection; any new infection that occurs will be identified and treated promptly; existing infection will resolve without complication Completed HH - Assess infection risk and s/s Problem:HH - Infection - Actual or Risk of Goal:HH - Patient will have no new infection; any new infection that occurs will be identified and treated promptly; existing infection will resolve without complication Completed HH - Complete fall risk assessment scale Problem:HH - Falls - Risk of Goal:HH - Knowledge and management of fall prevention measures. Completed HH - I/E fall prevention measures Description: environmental hazards: modification of environment to include clear walkways, secure animals, and move frequently used items within reach, use of equipment, impaired functional mobility: supervision for mobility/activity, appropriate footwear and as indicated safe use of assistive device(s) and pain affecting level of function: impact of pain on an increased risk of falls Problem: - Falls - Risk of Goal: - Knowledge and management of fall prevention measures. Completed HH - Assess vital signs, pulse oximetry, pain, and as indicated, orthostatic vital signs Description: use agency-specific parameters Problem: - Standard of Care Goal:HH - Achieve care management for a safe to home/community discharge from homecare Completed HH - Assess skin integrity Problem: - Standard of Care Goal:HH - Achieve care management for a safe to home/community discharge from homecare Completed HH - I/E discharge plan Problem:HH - Standard of Care Goal:HH - Achieve care management for a safe to home/community discharge from homecare Completed when wound healed HH - Complete Brandon scale at SOC and weekly Problem: - Standard of Care Goal:HH - Achieve care management for a safe to home/community discharge from homecare Completed HH - Assess pain Problem: - Pain Goal: - Frequency of pain interfering with patient's activity or movement will improve with activity or movement by discharge. Completed HH - Assess edema Description: Weight/ fluid overload Problem: - Edema - Actual or Risk of Goal: - Demonstrate/verbalize knowledge of causes, impacts, and risks associated with edema Completed - Assess wound for s/s of improvement or decline. Measure wounds weekly and as needed Description: measures wounds each visit and obtain image Problem: - Wound Goal:HH - Demonstrate/verbalize wound care management, wound/lesion will be free from complications Completed HH - Wound care: Description: Right TMA Wound Care Daily to 3x/wk depending on drainage Alginate 4x4 Kerlix Wrap Wound Vac will be re-ordered F/u with vascular wound clinic at [facility] w/o 01/13 Problem:HH - Wound Completed HH - I/E medication management: administration, purpose, dosages, preparation, setup, scheduling, side effects, food/drug interactions, and potential complications as indicated Description: Update patient's copy of medication list as needed. Problem: - Medication Management Goal: - Safe medication management, avoid unnecessary harm related to medication errors and/or interactions Completed HH - I/E wound management Description: nutrition to promote wound healing, s/s of complications, s/s of infection and wound/lesion care and treatment Problem:HH - Wound Goal:HH - Demonstrate/verbalize wound care management, wound/lesion will be free from complications Completed seen in [facility]; last visit 02/18/25, next 03/20/25 spoke with Ghazal staton regarding cont. care, need to keep scheduled vist s for wound care with VNA and clinic documented in this encounter Care Teams Maritime Guard Relationship Specialty Start Date End Date Afua Leblanc CNP [address] [place] [address], [address] [place] [address] [email or web address] PCP - General Nurse Practitioner 05/24/23 documented as of this encounter Additional Source Comments The information contained in this document represents components of the legal health record. It is not the complete legal health record.[facility]
--- NOTE | 2025-03-20 14:19 | A.OFFVIS_ITS ---
Intake Visit Reasons: 1 month follow up Intake Note: Patient presents for 1 month follow up. No complaints. Visiting nurses come once a week, patient's children change her bandages daily. Accompanied by: Son Allergies penicillin V Allergy (Unknown, Verified 03/20/25 14:20) RSH,ITCHY HPI HPI 1 month follow up: Details: Very pleasant 74-year-old female presents for follow-up regarding her right transmetatarsal site. Continues to do fairly well with it. Slowly healing. She has been followed by [facility] services. Now presents for routine wound check with son at bedside. [facility] Medical History CKD (chronic kidney disease) stage 4, GFR 15-29 ml/min Congestive heart failure Acute systolic CHF (congestive heart failure) Essential hypertension PAD (peripheral artery disease) Hypertension Mood disorder Diabetes Surgical History History of transmetatarsal amputation of right foot (08/31/23) History of left below knee amputation History of femoral angiogram History of left below knee amputation Pacemaker Social History Household Members: Family and Children Housing: House Do you presently have visiting nurse or other home services: No Unable to assess alcohol history related to: Unknown Alcohol intake: current Alcohol intake frequency: does not drink Patient Tobacco Use Status: Never used Tobacco service: No Current occupational status: retired Review of Systems Const All systems reviewed & are unremarkable except as noted in HPI and below Reports no additional complaints ENT Reports Normal hearing present Card Denies chest pain, Denies chest pain at rest, Denies chest pain with activity and Denies pedal edema Resp Denies cough GI Denies abdominal pain Musc Denies abnormal gait, Denies muscle cramps and Denies radiating pain into limb Skin/Breast Denies skin ulcer and Denies wounds Neuro Reports Normal hearing present and Denies abnormal gait Psych Reports no additional complaints Physical Exam Const General: cooperative, healthy appearing and comfortable Orientation/consciousness: oriented to person, oriented to place and oriented to time HEENT Head: Yes normal to inspection Neck Neck: Yes normal visual inspection Carotids: no bruits Chest Chest palpation & inspection: normal inspection of the chest Resp Effort & Inspection: normal respiratory effort and able to speak in complete sentences Auscultation: clear to auscultation bilaterally, no crackles, no rales, no rhonchi and no wheezes Cardio Rate: regular rate Rhythm: regular rhythm Heart sounds: S1 normal heart sound present and S2 normal heart sound present Bruits: no carotid bruits Peripheral pulses: Peripheral pulses 2+ throughout GI Inspection: Yes normal to inspection Skin Other: Trans met amp site right side wound measuring 3 x 1 x 0.1 cm. Good granulation bed. Wounds: amputation site Hair: normal Neuro General: oriented to person, oriented to place and oriented to time Cranial nerves: Yes CN's II-XII intact bilaterally and Yes Normal hearing present Cognition (Neuro): normal cognition Motor exam (neuro): 5/5 motor strength present throughout Extrem Other: venous exam: No significant superficial varicosities or spider telangiectasias, minimal edema General: No clubbing, No cyanosis and No edema Psych Appearance: grossly normal Mental Status: mental status grossly normal Speech and movement: Normal speech and movement present Assessment & Plan Assessment & Plan (1) PAD (peripheral artery disease): Comment: 08/31/2023 - right transmetatarsal amputation Code(s): I73.9 - Peripheral vascular disease, unspecified Category: Medical Plan: In short patient has right trans met amp. Slowly healing but it continues to heal which is amazing that this is nearly 18 months later and it is coming to a close. Continue local wound care. We also discussed offloading and good nutrition. She will follow up with us in approximately 1 months time. Thank you for allowing us to assist in her care. Coding Level of Care Code Est Pt Level 3 (22838) Diagnoses PAD (peripheral artery disease) I73.9
--- OUTSIDE RECORDS SUMMARY | 2025-03-20 14:31 | XMS_ITS | Clinical Summary ---
Author Organization [facility] Address [address] [place] [address] Care Team Providers Care Manager Statistical Name Role Phone ManiUna SAURABH Primary Care Provider [phone] Allergies Active Allergy Reactions Criticality Noted Date [...] topic Insurance MEDICARE PART A & B [facility] Care Teams Manager Statistical Relationship Specialty Start Date End Date Una Singleton NP [address] [place] [address] [address] [place] [address] PCP - General Adult Health - PA/APNP/SUPERVISOR LITHARGE/CONSTRUCTION PIT WORKER 11/18/21
--- OUTSIDE RECORDS SUMMARY | 2025-03-20 14:31 | XMS_ITS | Clinical Summary ---
Author Organization [facility], Address [address] [place] [address] Phone Care Team Providers Care Lump Receiver Name Role Phone Una Telles NP Primary Care Provider Unavailab le Allergies Active Allergy Reactions Criticality Noted Date Comments Penicillins Rash,Other (see comments) Medium Medications amLODIPine (NORVASC) 5 MG tablet Take [...] ophthalmology and book appt w [facility] or [facility] endocrinology DM w nephropathy, neuropathy & [...] Hemoglobin A1C 04/28/2022 01/26/2022 Influenza Vaccine (#1) 2025 0, 05/30/2018, 07/18/2017, Additional history exists Pneumococcal [...] Recently Relevant to Health Maintenance Insurance Medicaid [place] Medicare Care Teams Lump Receiver Relationship Specialty Start Date End Date Una Telles NP PCP - General 06/25/19
== END 2025-03-20 15:03 | disposition home or self-care (01) ==
LOC: HO.HVS 14:19
PROVIDERS: PCP Nurse Practitioner Family; Visit Provider Surgery Vascular Surgery
DX: I73.9 Peripheral vascular disease, unspecified (principal)
CPT/HCPCS: 99213

== ENCOUNTER → 2025-03-20 14:19 | Outpatient (BNVA) | payer MEDICARE, MEDICAID, SELFPAY | PROVIDERS: PCP Nurse Practitioner Family; Visit Provider Surgery Vascular Surgery | DX: I73.9 Peripheral vascular disease, unspecified (principal) | CPT/HCPCS: 99212 ==

== ENCOUNTER 2025-04-09 13:33 | Outpatient (AMB) | payer MEDICARE, MEDICAID, SELFPAY ==
--- NOTE | 2025-04-09 13:46 | HO.NEPHOV ---
Vital Signs 04/09/25 13:48 Height 5 ft 4 in BP 160/100 H Blood Pressure Location Rt brachial Position Sitting Pulse 75 Pulse Source Pulse Oximeter Pulse Oximetry (%) 96 Oxygen Delivery Method Room Air Intake Visit Reasons: 3 MO FU-LVM Fur Coat Sewer Required: No Accompanied by: Son Allergies penicillin V Allergy (Unknown, Verified 04/09/25 13:48) RSH,ITCHY HPI Comments Details: 74-year-old female with peripheral arterial disease status post left BKA, essential hypertension, insulin-dependent diabetes mellitus was seen today for follow up of her CKD. She had normocytic anemia . She denies SOB, orthopnea or PND. She has H/O recurrent ANNIE on CKD3b. due to cardiorenal syndrome. She has not had any blood work recently. She denies any chest pain, pedal edema or urinary symptoms. She does not take any nonsteroidal anti-inflammatories. She tries to maintain good hydration. [facility] Medical History CKD (chronic kidney disease) stage 4, GFR 15-29 ml/min Congestive heart failure Acute systolic CHF (congestive heart failure) Essential hypertension PAD (peripheral artery disease) Hypertension Mood disorder Diabetes Surgical History History of transmetatarsal amputation of right foot (08/31/23) History of left below knee amputation History of femoral angiogram History of left below knee amputation Pacemaker Social History Household Members: Family and Children Housing: House Do you presently have visiting nurse or other home services: No Unable to assess alcohol history related to: Unknown Alcohol intake: current Alcohol intake frequency: does not drink Patient Tobacco Use Status: Never used Tobacco service: No Current occupational status: retired Review of Systems Const All systems reviewed & are unremarkable except as noted in HPI and below Physical Exam Vital Signs: Last Vital Signs Pulse 75 04/09/25 13:48 BP 160/100 H 04/09/25 13:48 Pulse Ox 96 04/09/25 13:48 Oxygen Delivery Method Room Air 04/09/25 13:48 Const General: comfortable and no acute distress Orientation/consciousness: patient oriented x3 HEENT Head: Yes normocephalic Mouth: Normal oral and palatal mucosa present Eyes EOM: EOMs intact bilaterally Neck Neck: Yes supple Resp Auscultation: clear to auscultation bilaterally Cardio Jugular venous distension: no JVD Rate: regular rate GI Palpation (GI): Soft to palpation Auscultation: normal bowel sounds General: Yes no CVA tenderness Back/Spine/Pelvis Back: no CVA tenderness Skin General skin exam: no rashes or lesions noted Neuro General: patient oriented x3 and moves all extremities Results Reviewed Nephrology Results: Hgb, (12.0-16.0) 10.6 g/dl L 01/03/25 WBC, (4.8-10.8) 5.8 X10*3/uL 01/03/25 Plt Count, (160-400) 235 X10*3/uL 01/03/25 Sodium, (135-145) 136 mmol/L 01/03/25 Potassium, (3.3-5.1) 5.5 mmol/L H 01/03/25 Chloride, (96-108) 105 mmol/L 01/03/25 Carbon Dioxide, (22-29) 24 mmol/L 01/03/25 BUN, (9-16) 49 mg/dL H 01/03/25 Creatinine, (0.5-1.4) 2.30 mg/dL H 01/03/25 Calcium, (8.4-10.2) 9.0 mg/dL Δ 01/03/25 Phosphorus, (2.7-4.5) 3.4 mg/dL 01/03/25 Renal US 10/03/24 Assessment & Plan Assessment & Plan (1) Essential hypertension: Code(s): I10 - Essential (primary) hypertension Category: Medical (2) Secondary hyperparathyroidism (of renal origin): Code(s): N25.81 - Secondary hyperparathyroidism of renal origin Category: Medical (3) CKD (chronic kidney disease) stage 3, GFR 30-59 ml/min: Code(s): N18.30 - Chronic kidney disease, stage 3 unspecified Category: Medical Qualifiers: Chronic kidney disease stage 3 subtype: stage 3b (GFR 30-44) Qualified Code(s): N18.32 - Chronic kidney disease, stage 3b (4) Hyperkalemia: Code(s): E87.5 - Hyperkalemia Category: Medical (5) Anemia in chronic kidney disease (CKD): Code(s): N18.9 - Chronic kidney disease, unspecified; D63.1 - Anemia in chronic kidney disease Category: Medical Qualifiers: Chronic kidney disease stage: stage 4 (GFR 15-29) Qualified Code(s): N18.4 - Chronic kidney disease, stage 4 (severe); D63.1 - Anemia in chronic kidney disease Plan Her serum creatinine may be at a new baseline. She has H/O heart failure which has resolved. Her CKD is likely from vascular disease. Her urine output is good. She can continue her current medications for now . She will be a candidate for Procrit injections in the future. She will need activated Vitamin D soon. I did not make any other medication changes today. She should avoid nonsteroidal anti-inflammatory medications and maintain good hydration. Follow-up blood work ordered , answered her and her son's questions. Follow-up given Orders: Orders Creatinine Today D63.1 - Anemia in chronic kidney disease, E87.5 - Hyperkalemia, I10 - Essential (primary) hypertension, N18.32 - Chronic kidney disease, stage 3b, N18.4 - Chronic kidney disease, stage 4 (severe), N25.81 - Secondary hyperparathyroidism of renal origin Electrolytes Today D63.1 - Anemia in chronic kidney disease, E87.5 - Hyperkalemia, I10 - Essential (primary) hypertension, N18.32 - Chronic kidney disease, stage 3b, N18.4 - Chronic kidney disease, stage 4 (severe), N25.81 - Secondary hyperparathyroidism of renal origin Ferritin Today D63.1 - Anemia in chronic kidney disease, E87.5 - Hyperkalemia, I10 - Essential (primary) hypertension, N18.32 - Chronic kidney disease, stage 3b, N18.4 - Chronic kidney disease, stage 4 (severe), N25.81 - Secondary hyperparathyroidism of renal origin Phosphorus Today D63.1 - Anemia in chronic kidney disease, E87.5 - Hyperkalemia, I10 - Essential (primary) hypertension, N18.32 - Chronic kidney disease, stage 3b, N18.4 - Chronic kidney disease, stage 4 (severe), N25.81 - Secondary hyperparathyroidism of renal origin Parathyroid Hormone Intact Today D63.1 - Anemia in chronic kidney disease, E87.5 - Hyperkalemia, I10 - Essential (primary) hypertension, N18.32 - Chronic kidney disease, stage 3b, N18.4 - Chronic kidney disease, stage 4 (severe), N25.81 - Secondary hyperparathyroidism of renal origin Blood Urea Nitrogen 3 Months D63.1 - Anemia in chronic kidney disease, E87.5 - Hyperkalemia, I10 - Essential (primary) hypertension, N18.32 - Chronic kidney disease, stage 3b, N18.4 - Chronic kidney disease, stage 4 (severe), N25.81 - Secondary hyperparathyroidism of renal origin Creatinine 3 Months D63.1 - Anemia in chronic kidney disease, E87.5 - Hyperkalemia, I10 - Essential (primary) hypertension, N18.32 - Chronic kidney disease, stage 3b, N18.4 - Chronic kidney disease, stage 4 (severe), N25.81 - Secondary hyperparathyroidism of renal origin Complete Blood Count Auto Diff Today D63.1 - Anemia in chronic kidney disease, E87.5 - Hyperkalemia, I10 - Essential (primary) hypertension, N18.32 - Chronic kidney disease, stage 3b, N18.4 - Chronic kidney disease, stage 4 (severe), N25.81 - Secondary hyperparathyroidism of renal origin Blood Urea Nitrogen Today D63.1 - Anemia in chronic kidney disease, E87.5 - Hyperkalemia, I10 - Essential (primary) hypertension, N18.32 - Chronic kidney disease, stage 3b, N18.4 - Chronic kidney disease, stage 4 (severe), N25.81 - Secondary hyperparathyroidism of renal origin Calcium Today D63.1 - Anemia in chronic kidney disease, E87.5 - Hyperkalemia, I10 - Essential (primary) hypertension, N18.32 - Chronic kidney disease, stage 3b, N18.4 - Chronic kidney disease, stage 4 (severe), N25.81 - Secondary hyperparathyroidism of renal origin IRON PROFILE Today D63.1 - Anemia in chronic kidney disease, E87.5 - Hyperkalemia, I10 - Essential (primary) hypertension, N18.32 - Chronic kidney disease, stage 3b, N18.4 - Chronic kidney disease, stage 4 (severe), N25.81 - Secondary hyperparathyroidism of renal origin Vitamin D 25-OH Total Today D63.1 - Anemia in chronic kidney disease, E87.5 - Hyperkalemia, I10 - Essential (primary) hypertension, N18.32 - Chronic kidney disease, stage 3b, N18.4 - Chronic kidney disease, stage 4 (severe), N25.81 - Secondary hyperparathyroidism of renal origin Electrolytes 3 Months D63.1 - Anemia in chronic kidney disease, E87.5 - Hyperkalemia, I10 - Essential (primary) hypertension, N18.32 - Chronic kidney disease, stage 3b, N18.4 - Chronic kidney disease, stage 4 (severe), N25.81 - Secondary hyperparathyroidism of renal origin Coding Level of Care Code Est Pt Level 4 (29226) Diagnoses Essential hypertension I10 Secondary hyperparathyroidism (of renal origin) N25.81 Stage 3b chronic kidney disease N18.32 Chronic kidney disease stage 3 subtype: stage 3b (GFR 30-44) Hyperkalemia E87.5 Anemia in stage 4 chronic kidney disease N18.4; D63.1 Chronic kidney disease stage: stage 4 (GFR 15-29)
[2025-04-09 13:48] VITALS: BP 160/100; PULSE 75; O2SAT 96
--- OUTSIDE RECORDS SUMMARY | 2025-04-09 14:28 | XMS_ITS | Clinical Summary ---
Author Organization [facility]ly [facility] Address [address] [place] [address] Care Team Providers Care Legislative Analyst Name Role Phone ManiUna SAURABH Primary Care [...] topic Insurance [facility]IC[facility] Care Teams Legislative Analyst Relationship Specialty Start Date End Date Una Singleton NP [address] [place] [address] [address] [place] [address] PCP - General Adult Health - PA/APNP/BRASS WIND INSTRUMENT MAKER/HALL CLEANER 11/18/21
--- OUTSIDE RECORDS SUMMARY | 2025-04-09 14:28 | XMS_ITS | Clinical Summary ---
Author Organization [facility], Address [address] [facility] [address] [place] [address] Phone Care Team Providers Care Senior Sales Assistant Name Role Phone Una Telles NP Primary [...] ophthalmology and book appt w [facility] or [facility] endocrinology DM w nephropathy, neuropathy & [...] Recently Relevant to Health Maintenance Insurance Medicaid [place] Medicare Care Teams Senior Sales Assistant Relationship Specialty Start Date End Date Una Telles NP PCP - General 06/25/19
== END 2025-04-09 14:12 | disposition home or self-care (01) ==
LOC: HO.HKA 13:34
PROVIDERS: PCP Nurse Practitioner Family; Visit Provider Internal Medicine Nephrology
DX: I12.9 Hypertensive chronic kidney disease with stage 1 through stage 4 chronic kidney disease, or unspecified chronic kidney disease (principal); N25.81 Secondary hyperparathyroidism of renal origin; N18.32 Chronic kidney disease, stage 3b; E87.5 Hyperkalemia; N18.4 Chronic kidney disease, stage 4 (severe); D63.1 Anemia in chronic kidney disease
CPT/HCPCS: 99214

== ENCOUNTER 2025-04-09 13:33 | Outpatient (REF) | payer MEDICARE, MEDICAID, SELFPAY ==
[2025-04-09 14:50] LABS: MANUAL DIFF FLAG NO
[2025-04-09 15:21] LABS: Hematocrit 37.3 % (37.0-47.0); Hemoglobin 11.8 g/dl (12.0-16.0); Imm Gran Abs Auto 0.01 X10*3/uL (0.00-0.03); Imm Gran Pct Auto 0.2 % (0.0-0.4); Lymphocytes Absolute Auto 1.0 X10*3/uL (1.2-4.9); Mean Corpuscular HGB Conc 31.6 g/dl (31.0-35.0); Mean Corpuscular Hemoglobin 27.0 pg (27.0-33.0); Mean Corpuscular Volume 85.4 fL (80.0-98.0); NRBC Abs Auto 0.000 X10*3/uL (0.0-0.012); NRBC Pct Auto 0.0 /100WBC (0.0-0.2); Platelet Count 219 X10*3/uL (160-400); Red Blood Count 4.37 X10*6/uL (4.20-5.50); White Blood Count 5.3 X10*3/uL (4.8-10.8)
[2025-04-09 16:06] LABS: Parathyroid Hormone Intact 236.7 pg/mL (8.7-77.1)
[2025-04-09 16:09] LABS: Anion Gap 13 (12-20); Blood Urea Nitrogen 49 mg/dL (9-16); Calcium 9.0 mg/dL (8.4-10.2); Carbon Dioxide 26 mmol/L (22-29); Chloride 102 mmol/L (96-108); Estimated Glomerular Filt Rate 18; Iron 65 mcg/dL (30-160); Percent Iron Saturation 22 % (15-50); Potassium 5.2 mmol/L (3.3-5.1); Sodium 136 mmol/L (135-145); Total Iron Binding Capacity 291 mcg/dL (228-428); Unsaturated Iron Binding 226 ug/dL
[2025-04-09 16:27] LABS: Ferritin 161 ng/mL (10-250)
== END 2025-04-09 13:34 | disposition home or self-care (01) ==
LOC: HO.LAB 13:33
PROVIDERS: PCP Nurse Practitioner Family; Visit Provider Internal Medicine Nephrology
DX: I12.9 Hypertensive chronic kidney disease with stage 1 through stage 4 chronic kidney disease, or unspecified chronic kidney disease (principal); N18.4 Chronic kidney disease, stage 4 (severe); D63.1 Anemia in chronic kidney disease; N25.81 Secondary hyperparathyroidism of renal origin; E87.5 Hyperkalemia
CPT/HCPCS: 36415; 80051; 82306; 82310; 82565; 82728; 83540; 83970; 84100; 84520; 85025; 99212

== ENCOUNTER 2025-04-29 11:15 | Outpatient (AMB) | payer MEDICARE, MEDICAID, SELFPAY ==
--- NOTE | 2025-04-29 11:15 | A.OFFVIS_ITS ---
Vital Signs 04/29/25 11:16 Height 5 ft 4 in Intake Visit Reasons: 1m follow up wound check Intake Note: 1 mo follow up Right transmet amp, wound is much smaller and VNA comes 1 time per week. Accompanied by: Son Allergies penicillin V Allergy (Unknown, Verified 04/29/25 11:21) RSH,ITCHY HPI HPI 1m follow up wound check: Details: 74-year-old female presents for routine surveillance follow-up regarding her right transmetatarsal amputation. It was originally done in August of 2023. It has been slowly progressing and healing. It has gotten to the point where it is nearly healed. She presents with her son and does have VNA services provided to her on a weekly basis. [facility] Medical History CKD (chronic kidney disease) stage 4, GFR 15-29 ml/min Congestive heart failure Acute systolic CHF (congestive heart failure) Essential hypertension PAD (peripheral artery disease) Hypertension Mood disorder Diabetes Surgical History History of transmetatarsal amputation of right foot (08/31/23) History of left below knee amputation History of femoral angiogram History of left below knee amputation Pacemaker Social History Household Members: Family and Children Housing: House Do you presently have visiting nurse or other home services: No Unable to assess alcohol history related to: Unknown Alcohol intake: current Alcohol intake frequency: does not drink Patient Tobacco Use Status: Never used Tobacco service: No Current occupational status: retired Review of Systems Const All systems reviewed & are unremarkable except as noted in HPI and below Reports no additional complaints ENT Reports Normal hearing present Card Denies chest pain, Denies chest pain at rest, Denies chest pain with activity and Denies pedal edema Resp Denies cough GI Denies abdominal pain Musc Denies abnormal gait, Denies muscle cramps and Denies radiating pain into limb Skin/Breast Denies skin ulcer and Denies wounds Neuro Reports Normal hearing present and Denies abnormal gait Psych Reports no additional complaints Physical Exam Const General: cooperative, healthy appearing and comfortable Orientation/consciousness: oriented to person, oriented to place and oriented to time HEENT Head: Yes normal to inspection Neck Neck: Yes normal visual inspection Carotids: no bruits Chest Chest palpation & inspection: normal inspection of the chest Resp Effort & Inspection: normal respiratory effort and able to speak in complete sentences Auscultation: clear to auscultation bilaterally, no crackles, no rales, no rhonchi and no wheezes Cardio Rate: regular rate Rhythm: regular rhythm Heart sounds: S1 normal heart sound present and S2 normal heart sound present Bruits: no carotid bruits Peripheral pulses: Peripheral pulses 2+ throughout GI Inspection: Yes normal to inspection Skin Other: Right trans met 0.5 cm central opening Wounds: no wounds Hair: normal Neuro General: oriented to person, oriented to place and oriented to time Cranial nerves: Yes CN's II-XII intact bilaterally and Yes Normal hearing present Cognition (Neuro): normal cognition Motor exam (neuro): 5/5 motor strength present throughout Extrem Other: venous exam: No significant superficial varicosities or spider telangiectasias, minimal edema General: No clubbing, No cyanosis and No edema Psych Appearance: grossly normal Mental Status: mental status grossly normal Speech and movement: Normal speech and movement present Assessment & Plan Assessment & Plan (1) PAD (peripheral artery disease): Comment: 08/31/2023 - right transmetatarsal amputation Code(s): I73.9 - Peripheral vascular disease, unspecified Category: Medical Plan: In short appears to be doing relatively well with transmetatarsal amputation. Continue with local wound care. My hope is that within the next month it will be healed and we can fit her for a prosthetic at that point. Thank you for allowing us to assist in her care. If there are any questions or concerns please do not hesitate to contact us. Coding Level of Care Code Est Pt Level 3 (63402) Diagnoses PAD (peripheral artery disease) I73.9
--- OUTSIDE RECORDS SUMMARY | 2025-04-29 13:36 | XMS_ITS | Clinical Summary ---
Author Organization [facility], Address [address] [facility] [address] [place] [address] Phone Care Team Providers Care Net Application Support Specialist Name Role Phone Una Telles NP Primary [...] ophthalmology and book appt w [facility] or [facility] endocrinology DM w nephropathy, neuropathy & [...] Maintenance Insurance Medicaid [place] Medicare Care Teams Net Application Support Specialist Relationship Specialty Start Date End Date Una Telles NP PCP - General 06/25/19
--- OUTSIDE RECORDS SUMMARY | 2025-04-29 13:36 | XMS_ITS | Clinical Summary ---
Author Organization [facility] Address [address] [place] [address] Care Team Providers Care Automatic Tire Tester Name Role Phone ManiUna SAURABH Primary Care Provider [phone] Allergies Active Allergy Reactions Criticality Noted Date [...] Health Maintenance Due Date Last Done Comments Advance Care Planning 1950 Hepatitis C Virus Screening 1950 DTaP/Tdap/Td Vaccines [...] topic Insurance MEDICARE PART A & B [facility] Care Teams Automatic Tire Tester Relationship Specialty Start Date End Date Una Singleton NP [address] [facility] [address] [place] [address] PCP - General Adult Health - PA/APNP/RAILCAR CARPENTER/TOUR OPERATOR 11/18/21
== END 2025-04-29 13:21 | disposition home or self-care (01) ==
LOC: HO.HVS 11:15
PROVIDERS: PCP Nurse Practitioner Family; Visit Provider Surgery Vascular Surgery
DX: I73.9 Peripheral vascular disease, unspecified (principal)
CPT/HCPCS: 99213

== ENCOUNTER → 2025-04-29 11:15 | Outpatient (BNVA) | payer MEDICARE, MEDICAID, SELFPAY | PROVIDERS: PCP Nurse Practitioner Family; Visit Provider Surgery Vascular Surgery | DX: I73.9 Peripheral vascular disease, unspecified (principal); Z89.431 Acquired absence of right foot | CPT/HCPCS: 99212 ==

== ENCOUNTER 2025-06-03 15:02 | Outpatient (AMB) | payer MEDICARE, MEDICAID, SELFPAY ==
--- OUTSIDE RECORDS SUMMARY | 2025-05-30 | XMS_ITS | Encounter Summary ---
Author Organization [facility] Address [address] [place] [address] Phone Care Team Providers Care Shirt Cleaner Name Role Phone Afua Leblanc SHERLY Primary Care Provider Reason for Visit * Auth/Cert (Routine) Specialty Diagnoses / Procedures Referred By Susan t Referred To Contact Referral ID Status Reason Start Date Expiration Date Visits Re quested Visits Authorized [id number] 1 1 Encounter Details Date Type Department Care Team (Late st Contact Info) Description 05/30/2025 Home Care Visit [facility] [address] [place] [phone] Natalie Watts [address] [place] [address] [email or web address] CARE TECHNICIAN HOME VISIT Social History Tobacco Use Types Packs/Day Years Used Date Smoking Tobacco: Never Smokeless Tobacco: Never Alcohol Use Standard Drinks/Week Comments Not Currently 0 (1 standard drink = 0.6 oz pur e alcohol) none for years Home Health Assessment: Transportation Answer Date Recorded Lack of Transportation (Medical) No 05/28/2025 Lack of Transportation (Non-Medical) No 05/28/2025 Patient Unable or Declines to Respond No 05/28/2025 Child or Family Care Answer Date Record [...] got money to buy more. Never True 05/16/2025 Within the past 6 months the food we bought just didn't last and we didn't have enough money to get more. Never True Residential Stability Answer Date Recor ded What is your housing situation today? I have segun sing 05/16/2025 How many times have you move d in the past 12 months? Zero (I did not move) 05/16/2025 Paying for Meds Answer Date Recorded Do you have trouble paying for medicines? No 05/16/2025 Paying Utility Bills Answer Date Record ed Do you have trouble paying your heating or elect ricity bill? No 05/16/2025 Transportation Answer Date Recorded Has the lack of transportati on kept you from medical appointments or from getting medications? No 05/16/2025 Digital Access Answer Date Recorded No 05/16/2025 Yes 05/16/2025 Do you have reliable internet access at home? Ye s 05/16/2025 Do you have a device (e.g., phone, tablet, computer) with a working camera? Yes 05/16/2025 Intimate Partner Violence Answer Date R ecorded Are you denied basic needs s uch as food, clothing, or medical care? No 05/16/2025 In the past 12 months have y ou been in a relationship with a person who hurts, threatens, or tries to control you? No 05/16/2025 Are you denied basic needs s uch as food, clothing, or medical care? No 05/16/2025 In the past 12 months have y ou been in a relationship with a person who hurts, threatens, or tries to control you? No 05/16/2025 Comments No Sex and Gender Information Value Date Recorded Sex Assigned at Female 09/04/2018 5:38 PM EST Legal Sex Female 10:01 PM EDT Gender Identity Female 09/04/2018 5:38 PM EST Sexual Orientation Straight 09/04/2018 5: 38 PM EST Occupation Industry Job Start Date Job End Date Retired, previously worked at [employer] Not on file Not on file Not on file documented as of this encounter Last Filed Vital Signs Vital Sign Reading Time Taken Comments Blood Pressure 170/96 05/30/2025 12:55 PM EDT Pulse 64 05/30/2025 12:55 PM EDT Temperature 36.4 C (97.6 F) 05/30/2025 12:55 PM EDT Respiratory Rate - - Oxygen Saturation 95% 05/30/2025 12:55 PM EDT Inhaled Oxygen Concentration - - Weight - - Height - - Body Mass Index - - documented in this encounter Plan of Treatment Upcoming Encounters Date Type Department Care Team (Late st Contact Info) Description 06/04/2025 12:30 AM EDT Home Care Visit [facility] [address] [place] [phone] Natalie Watts [address] [place] [address] 06/06/2025 3:00 AM EDT Home Care Visit [facility] [address] [place] [phone] Cee Peters RN [address] [place] [phone] 06/09/2025 1:30 AM EDT Home Care Visit [facility] [address] [place] [address] Cee Peters RN [address] [place] [phone] [email or web address] 06/11/2025 12:30 AM EDT Home Care Visit [facility] [address] [place] [phone] Cee Peters RN [address] [place] [phone] 06/13/2025 1:30 AM EDT Home Care Visit [facility] [address] [place] [phone] Cee Peters RN [address] [place] [address] 06/13/2025 3:00 PM EDT Office Visit [facility] [address] [place] [address] [address] Floor, [address] [place] [address] Leda, Sumaya Jonas, [address] [address] [email or web address] 06/16/2025 12:30 AM EDT Home Care Visit [facility] [address] [place] [phone] Cee Peters RN [address] [place] [phone] 06/18/2025 12:30 AM EDT Home Care Visit [facility] [address] [place] [phone] Cee Peters RN [address] [place] [phone] 06/20/2025 1:00 AM EDT Home Care Visit [facility] [address] [place] [phone] Cee Peters RN [address] [place] [phone] 06/23/2025 12:30 AM EST Home Care Visit [facility] [address] [place] [phone] Cee Peters RN [address] [place] [phone] 06/25/2025 12:30 AM EST Home Care Visit [facility] [address] [place] [phone] Cee Peters RN [address] [place] [address] [email or web address] 06/27/2025 1:00 AM EST Home Care Visit [facility] [address] [place] [phone] Cee Peters RN [address] [place] [address] [email or web address] 06/30/2025 12:30 AM EST Home Care Visit [facility] [address] [place] [phone] Cee Peters RN [address] [place] [phone] [email or web address] 07/02/2025 12:30 AM EST Home Care Visit [facility] [address] [place] [phone] Cee Peters RN [address] [place] [phone] [email or web address] 07/04/2025 1:00 AM EST Home Care Visit [facility] [address] [place] [phone] Cee Peters RN [address] [place] [address] [email or web address] 07/07/2025 12:30 AM EST Home Care Visit [facility] [address] [place] [phone] Cee Peters RN [address] [place] [address] [email or web address] 07/09/2025 12:30 AM EST Home Care Visit [facility] [address] [place] [phone] Cee Peters RN [address] [place] [address] 07/11/2025 1:00 AM EST Home Care Visit [facility] [address] [place] [phone] Cee Peters RN [address] [place] [address] 07/14/2025 12:30 AM EST Home Care Visit [facility] [address] [place] [phone] Cee Peters RN [address] [place] [address] 07/16/2025 12:30 AM EST Home Care Visit [facility] [address] [place] [phone] Cee Peters RN [address] [place] [address] 07/18/2025 1:00 AM EST Home Care Visit [facility] [address] [place] [phone] Cee Peters RN [address] [place] [address] 07/21/2025 Appointment [facility] [address] [place] [phone] Cee Peters RN [address] [place] [address] 07/23/2025 Home Care Visit [facility] [address] [place], [place] [phone] Cee Peters RN [address] [place] [address] 07/25/2025 Home Care Visit [facility] [address] [place] [address], [place] [phone] Cee Peters RN [address] [place] [address] documented as of this encounter Goals Goal Patient Goal Type Associated Problems Recent Progress Patient-Stated? Author Adhere to prescribed treatment plan Care Plan Chronic Condition Self-Management No Jazmyn Anderson RN Note: Barriers: No identified barriers Manage and adhere to medication treatment plan Care Plan Medication Management No Jazmyn Anderson RN Note: Barriers: No identified barriers documented as [...] - Care Plan Visit Details Visit Type -CARE TECHNICIAN HOME VISIT Discipline -Alf Problems Problem Description Start Date Status Goals Interve ntions HH - Medication Management Disciplines: All Active Home Health Disciplines 05/28/2025 Active 1 goal linked to scheduled/document ed intervention 2 goal interventions scheduled/document ed in this visit HH - Focus of Care and Teaching Disciplines: All Active Home Health Disciplines w/RD 05/28/2025 Active 1 goal linked to scheduled/document ed intervention 1 goal intervention scheduled/document ed in this visit HH - Emergency Planning - Knowledge of Disciplines: All Active Home Health Disciplines 05/28/2025 Active 1 goal linked to scheduled/document ed intervention 2 goal interventions scheduled/document ed in this visit HH - Wound Disciplines: All Active Home Health Disciplines 05/28/2025 Active 1 goal linked to scheduled/document ed intervention 1 goal intervention scheduled/document ed in this visit HH - Standard of Care Disciplines: All Active Home Health Disciplines 05/28/2025 Active 1 goal linked to scheduled/document ed intervention 2 goal interventions scheduled/document ed in this visit Goals Goal [...] Planning - Knowledge of No HH - Demonstrate/verbalize wound care management, wound/lesion will be free from complications HH - Wound No HH - Achieve care management for a safe to home/community discharge from homecare HH - Standard of Care No Interventions Intervention Associated Problem/Goal Status Variance Visit Notes HH - I/E medication management: administration, purpose, dosages, preparation, setup, scheduling, side effects, food/drug interactions, and potential complications as indicated Description: Update patient's copy of medication list as needed. Problem:HH - Medication Management Goal:HH - Safe medication management, avoid unnecessary harm related to medication errors and/or interactions Completed - Complete medication review every visit and medication reconciliation as indicated. Pharmacy information: Description: [facility] Problem:HH - Medication Management Goal:HH - Safe medication management, avoid unnecessary harm related to medication errors and/or interactions Completed HH - Focus of care, teaching completed and plan for next visit Problem: - Focus of Care and Teaching Goal:HH - Communication and collaboration to achieve patient goals Completed Primary Clinical Focus this Visit & Instruction Provided: Patient alert and pleasant, lungs clear, no resp distress or SOB noted. No c/o pain. Wound care done to multiple wounds, no S/sx of infection. Appetite good, Adequate fluid intake Will continue to monitor and maintain safety. Instruction Provided to: patient Response to Instruction/Teachin g: Is partially able to teach back topics as evidenced by verbal recall. Plan for Next Visit Specific Focus & Education Needed: wound care New Orders: none Updated Discharge Plan: when wound heals HH - I/E management of care in an urgent or emergency (ER) situation: When to call your Home Care Team/911, ER plans, supplies, evacuation, when to contact local ER officials and how to stay informed Problem:HH - Emergency Planning - Knowledge of Goal:HH - Knowledge of options for managing care in the event of an emergency related situation. Completed - Emergency planning assessment: the emergency plan, supplies needed, emergency contact numbers and an evacuation plan were reviewed Description: Patient and Caregiver is/are knowledgeable of emergency plans. Problem:HH - Emergency Planning - Knowledge of Goal:HH - Knowledge of options for managing care in the event of an emergency related situation. Completed HH - Assess wounds/lesions/javier Description: LOCATION: Right foot Amputed site Problem: - Wound Goal:HH - Demonstrate/verbalize wound care management, wound/lesion will be free from complications Completed HH - Assess vital signs, pulse oximetry, pain, and as indicated, orthostatic vital signs Description: use agency-specific parameters Problem: - Standard of Care Goal:HH - Achieve care management for a safe to home/community discharge from homecare Completed HH - Assess skin integrity Problem: - Standard of Care Goal:HH - Achieve care management for a safe to home/community discharge from homecare Completed documented in this encounter Care Teams Shirt Cleaner Relationship Specialty Start Date End Date Afua Leblanc CNP [address] [place] [address] [address] [place] [address] [email or web address] PCP - General Nurse Practitioner 05/24/23 documented as of this encounter Additional Source Comments The information contained in this document represents components of the legal health record. It is not the complete legal health record.[facility]
--- OUTSIDE RECORDS SUMMARY | 2025-06-02 12:30 | XMS_ITS | Encounter Summary ---
Author Organization [facility] Address [address] [place] [address] Phone Care Team Providers Care Wood Flour Miller Name Role Phone Stevens Afua CNP Primary Care Provider Reason for Visit * Auth/Cert (Routine) Specialty Diagnoses / Procedures Referred By Susan t Referred To Contact Referral ID Status Reason Start Date Expiration Date Visits Re quested Visits Authorized [id number] 1 1 Encounter Details Date Type Department Care Team (Late st Contact Info) Description 06/02/2025 12:30 PM EDT Home Care Visit [facility] [address] [place] [phone] Cee Peters RN [address] [place] [address] [email or web address] SN HOME VISIT Social History Tobacco Use [...] Job End Date Retired, previously worked at [employer] Not on file Not on file Not on file documented as of this encounter Last Filed Vital Signs Vital Sign Reading Time Taken Comments Blood Pressure 130/80 06/02/2025 11:32 AM EDT Pulse 62 06/02/2025 11:32 AM EDT Temperature 36.3 C (97.4 F) 06/02/2025 11:32 AM EDT Respiratory Rate 16 06/02/2025 11:32 AM EDT Oxygen Saturation 96% 06/02/2025 11:32 AM EDT Inhaled Oxygen Concentration - - Weight - - Height - - Body Mass Index - - documented in this encounter Plan of Treatment Upcoming Encounters Date Type Department Care Team (Late st Contact Info) Description 06/04/2025 12:30 AM EDT Home Care Visit [facility] [address] [place] [phone] Natalie Watts [address] [place] [address] 06/06/2025 3:00 AM EDT Home Care Visit [facility] [address] [place] [phone] Cee Peters RN [address] [place] [address] 06/09/2025 1:30 AM EDT Home Care Visit [facility] [address] [place] [address] Cee Peters RN [address] [place] [phone] 06/11/2025 12:30 AM EDT Home Care Visit [facility] [address] [place] [phone] Cee Peters RN [address] [place] [phone] 06/13/2025 1:30 AM EDT Home Care Visit [facility] [address] [place] [phone] Cee Peters RN [address] [place] [address] 06/13/2025 3:00 PM EDT Office Visit [facility] [address] [place] [address] [address], [address] [place] [address] Sumaya Tompkins, [address] [address] 06/16/2025 12:30 AM EDT Home Care Visit [facility] [address] [place] [phone] Cee Peters RN [address] [place] [address] 06/18/2025 12:30 AM EDT Home Care Visit [facility] [address] [place] [phone] Cee Peters RN [address] [place] [address] 06/20/2025 1:00 AM EDT Home Care Visit [facility] [address] [place] [phone] Cee Peters RN [address] [place] [address] 06/23/2025 12:30 AM EST Home Care Visit [facility] [address] [place] [phone] Cee Peters RN [address] [place] [address] [place] [address] 06/25/2025 12:30 AM EST Home Care Visit [facility] [address] [place] [phone] Cee Peters RN [address] [place] [address] 06/27/2025 1:00 AM EST Home Care Visit [facility] [address] [place] [phone] Cee Peters RN [address] [place] [address] 06/30/2025 12:30 AM EST Home Care Visit [facility] [address] [place] [phone] Cee Peters RN [address] [place] [address] 07/02/2025 12:30 AM EST Home Care Visit [facility] [address] [place] [phone] Cee Peters RN [address] [place] [phone] 07/04/2025 1:00 AM EST Home Care Visit [facility] [address] [place] [phone] Cee Peters RN [address] [place] [address] 07/07/2025 12:30 AM EST Home Care Visit [facility] [address] [place] [phone] Cee Peters RN [address] [place] [address] 07/09/2025 12:30 AM EST Home Care Visit [facility] [address] [place] [phone] Cee Peters RN [address] [place] [address] 07/11/2025 1:00 AM EST Home Care Visit [facility] [address] [place] [phone] Cee Peters RN [address] [place] [address] 07/14/2025 12:30 AM EST Home Care Visit [facility] [address] [place] [phone] Cee Peters RN [address] [place] [address] 07/16/2025 12:30 AM EST Home Care Visit [facility] [address] [place] [phone] Cee Peters RN [address] [place] [address] 07/18/2025 1:00 AM EST Home Care Visit [facility] [address] [place] [phone] Cee Peters RN [address] [place] [address] 07/21/2025 Appointment [facility] [address] [place] [phone] Cee Peters RN [address] [place] [address] 07/23/2025 Home Care Visit [facility] [address] [place] [phone] Cee Peters RN [address] [place] [address] 07/25/2025 Home Care Visit [facility] [address] [place] [phone] Cee Peters RN [address] [place] [address] documented as of this encounter Goals Goal Patient Goal Type Associated Problems Recent Progress Patient-Stated? Author Adhere to prescribed treatment plan Care Plan Chronic Condition Self-Management No Jazmyn Anderson RN Note: Barriers: No identified barriers Manage and adhere to medication treatment plan Care Plan Medication Management Jazmyn Smiley RN Note: Barriers: No identified barriers documented [...] Details Visit Type -SN HOME VISIT Discipline -Jail Problems Problem Description Start Date Status Goals Interve ntions HH - Medication Management Disciplines: All Active Home Health Disciplines 05/28/2025 Active 1 goal linked to scheduled/documen phill intervention 2 goal interventions scheduled/document ed in this visit HH - Focus of Care and Teaching Disciplines: All Active Home Health Disciplines w/RD 05/28/2025 Active 1 goal linked to scheduled/documen phill intervention 1 goal intervention scheduled/document ed in this visit HH - Emergency Planning - Knowledge of Disciplines: All Active Home Health Disciplines 05/28/2025 Active 1 goal linked to scheduled/documen phill intervention 2 goal interventions scheduled/document ed in this visit HH - Wound Disciplines: All Active Home Health Disciplines 05/28/2025 Active 1 goal linked to scheduled/documen phill intervention 3 goal interventions scheduled/document ed in this visit HH - Diabetes Disciplines: All Active Home Health Disciplines 05/28/2025 Active 1 goal linked to scheduled/documen phill intervention 4 goal interventions scheduled/document ed in this visit HH - Cardiovascular Function - Impaired Disciplines: All Active Home Health Disciplines 05/28/2025 Active 1 goal linked to scheduled/documen phill intervention 1 goal intervention scheduled/document ed in this visit HH - Infection - Actual or Risk of Disciplines: All Active Home Health Disciplines 05/28/2025 Active 1 goal linked to scheduled/documen phill intervention 1 goal intervention scheduled/document ed in this visit HH - Falls - Risk of Disciplines: All Active Home Health Disciplines 05/28/2025 Active 1 goal linked to scheduled/documen phill intervention 2 goal interventions scheduled/document ed in this visit HH - Standard of Care Disciplines: All Active Home Health Disciplines 05/28/2025 Active 1 goal linked to scheduled/documen phill intervention 4 goal interventions scheduled/document ed in this visit HH - Pain Disciplines: All Active Home Health Disciplines 05/28/2025 Active 1 goal linked to scheduled/documen phill intervention 1 goal intervention scheduled/document ed in [...] complications HH - Wound No HH - Knowledge and management of diabetes. HH - Diabetes No HH - Demonstrate/verbalize management of cardiac disease, treatments, and s/s of complications HH - Cardiovascular Function - Impaired No HH - Patient will have no [...] care. Patient's acceptable level of pain is 0 - no pain. HH - Pain No Interventions Intervention Associated Problem/Goal Status Variance [...] medication reconciliation as indicated. Pharmacy information: Description: [facility] Problem:HH - Medication Management Goal:HH - Safe medication management, avoid unnecessary harm related to medication errors and/or interactions Completed HH - Focus of care, teaching completed and plan for next visit Problem: - Focus of Care and Teaching Goal:HH - Communication and collaboration to achieve patient goals Completed Primary Clinical Focus this Visit & Instruction Provided: patient rec'd in bed, oob to kitchen via w/c for SNV; wound care. Patient in good spirits. Assisted with checking BS; 202mg/dl. Has has not taken medications today; son Deandre will come later and admin. Spoke with Deandre prior to visit. VSS, LSCTA, no edema noted, appetite good. t/e med regime, methods to promote/maint. skin integrity, wound care Instruction Provided to: patient and caregiver Response to Instruction/Teachi ng: Is partially able to teach back topics. Plan for Next Visit Specific Focus & Education Needed: as stated New Orders: na Updated Discharge Plan: when wound helaed HH - I/E management of care in an urgent or emergency (ER) situation: When to call your Home Care Team/911, ER plans, supplies, evacuation, when to contact local ER officials and how to stay informed Problem: - Emergency Planning - Knowledge of Goal:HH [...] be free from complications Completed HH - Measure wound weekly and as needed Problem:HH - Wound Goal:HH - Demonstrate/verbalize wound care management, wound/lesion will be free from complications Completed HH - Wound care: Description: (R) foot amp site: To be changed MWF and PRN as needed for strike-through drainage, saturation/soilage, or displacement. Cleanse wound-bed(s) with a 4x4 woven gauze sponge moistened with Vashe wound cleanser (if necrotic tissue present; pre-soak for approximately 3-5 minutes), lightly wipe away any debris, and pat dry. Apply a thin layer of clear barrier ointment around dakota-wound(s) and foot. Apply a piece of Collagen Matrix with ORC and Silver (Promogran anil). Add 1-3 drops of Normal Saline until piece starts to dissolve. Cover with a DSD of gauze sponge and/or ABD pad wrapped with bulkee gauze roll secured with tape. Problem: - Wound Goal:HH - Demonstrate/verbalize wound care management, wound/lesion will be free from complications Completed HH - I/E diabetes management Description: safety precautions with neurosensory deficits, self-administration of diabetes medications, self-management of hyper/hypoglycemia, sick day management and s/s of hyper/hypoglycemia and self-monitoring Problem: - Diabetes Goal:HH - Knowledge and management of diabetes. Completed HH - Diabetic foot care including monitoring for the presence of skin lesions on the lower extremities and patient/caregiver education on proper foot care Problem: - Diabetes Goal:HH - Knowledge and management of diabetes. Completed HH - Assess blood sugar control, hypoglycemia/hyperglycemi a and diabetes-associated conditions (e.g., peripheral neuropathy) Problem: - Diabetes Goal:HH - Knowledge and management of diabetes. Completed HH - Administer antihyperglycemic injection per orders Problem: - Diabetes Goal:HH - Knowledge and management of diabetes. Completed HH - I/E cardiovascular function Description: cardiac disease management, energy conservation and prescribed activity level/restrictions and s/s of altered tissue perfusion Problem:HH - Cardiovascular Function - Impaired Goal:HH - Demonstrate/verbalize management of cardiac disease, treatments, and s/s of complications Completed HH - Assess infection risk and s/s Problem: - Infection - Actual or Risk of Goal:HH - Patient will have no new infection; any new infection that occurs will be identified and treated promptly; existing infection will resolve without complication Completed HH - Complete fall risk assessment scale Problem: - Falls - Risk of Goal: - Knowledge and management of fall prevention measures. Completed - I/E fall prevention measures Description: diagnosis/age related changes/prior history of falls: symptoms and side effects of illness/injury/history of falls placing patient at increased risk for falls. may include management of dizziness/orthostasis, impaired functional mobility: supervision for mobility/activity, appropriate footwear and as indicated safe use of assistive device(s), incontinence: management of incontinence to include safe toileting, need for absorbent garments, address urgency/frequency and poly pharmacy: side effects of medications placing a patient at high risk for a fall Problem: - Falls - Risk of Goal: - Knowledge and management of fall prevention measures. Completed HH - Assess vital signs, pulse oximetry, pain, and as indicated, orthostatic vital signs Description: use agency-specific parameters Problem: - Standard of Care Goal: - Achieve care management for a safe to home/community discharge from homecare Completed HH - Assess skin integrity Problem: - Standard of Care Goal:HH - Achieve care management for a safe to home/community discharge from homecare Completed - Complete Brandon scale at SOC and weekly Problem: - Standard of Care Goal: - Achieve care management for a safe to home/community discharge from homecare Completed HH - Assess weight Problem: - Standard of Care Goal: - Achieve care management for a safe to home/community discharge from homecare unable to ck d/t no seated scale avail HH - Assess pain Problem: - Pain Goal: - Frequency of pain interfering with patient's activity or movement will improve with activity or movement by discharge. Completed documented in this encounter Care Teams Wood Flour Miller Relationship Specialty Start Date End Date Afua Leblanc CNP [address] [place] [address], [address] [place] [address] [email or web address] PCP - General Nurse Practitioner 05/24/23 documented as of this encounter Additional Source Comments The information contained in this document represents components of the legal health record. It is not the complete legal health record.[facility]
--- NOTE | 2025-06-03 15:07 | A.OFFVIS_ITS ---
Intake Visit Reasons: 1 month wound check Intake Note: Patient presents for 1 month wound check. Accompanied by: Son Allergies penicillin V Allergy (Unknown, Verified 06/03/25 15:15) RSH,ITCHY HPI HPI 1 month wound check: Details: Very pleasant 74-year-old female presents for routine follow-up regarding nonhealing trans met amputation. This was originally done in August of 2023. She was nearly healed. Of note in the interim she did have a hospitalization at [facility]. It appears that she was in renal failure with some fluid overload. In addition there may be an element of congestive heart failure at that time. She was there for a proximally 2 weeks' time. She is now doing well and is back home with sons who have been taking very good care of her. She now presents for routine follow-up regarding her right trans met amp. 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) History of left below knee amputation History of femoral angiogram History of left below knee amputation Pacemaker Social History Household Members: Family and Children Housing: House Do you presently have visiting nurse or other home services: No Alcohol intake: current Alcohol intake frequency: does not drink Patient Tobacco Use Status: Never used Tobacco service: No Current occupational status: retired Review of Systems Const All systems reviewed & are unremarkable except as noted in HPI and below Reports no additional complaints ENT Reports Normal hearing present Card Denies chest pain, Denies chest pain at rest, Denies chest pain with activity and Denies pedal edema Resp Denies cough GI Denies abdominal pain Musc Denies abnormal gait, Denies muscle cramps and Denies radiating pain into limb Skin/Breast Denies skin ulcer and Denies wounds Neuro Reports Normal hearing present and Denies abnormal gait Psych Reports no additional complaints Physical Exam Const General: cooperative, healthy appearing and comfortable Orientation/consciousness: oriented to person, oriented to place and oriented to time HEENT Head: Yes normal to inspection Neck Neck: Yes normal visual inspection Carotids: no bruits Chest Chest palpation & inspection: normal inspection of the chest Resp Effort & Inspection: normal respiratory effort and able to speak in complete sentences Auscultation: clear to auscultation bilaterally, no crackles, no rales, no rhonchi and no wheezes Cardio Rate: regular rate Rhythm: regular rhythm Heart sounds: S1 normal heart sound present and S2 normal heart sound present Bruits: no carotid bruits Peripheral pulses: Peripheral pulses 2+ throughout GI Inspection: Yes normal to inspection Skin Other: Right foot amputation site a 1 cm in diameter wound Wounds: no wounds Hair: normal Neuro General: oriented to person, oriented to place and oriented to time Cranial nerves: Yes CN's II-XII intact bilaterally and Yes Normal hearing present Cognition (Neuro): normal cognition Motor exam (neuro): 5/5 motor strength present throughout Extrem Other: venous exam: No significant superficial varicosities or spider telangiectasias, minimal edema General: No clubbing, No cyanosis and No edema Psych Appearance: grossly normal Mental Status: mental status grossly normal Speech and movement: Normal speech and movement present Assessment & Plan Assessment & Plan (1) PAD (peripheral artery disease): Comment: 08/31/2023 - right transmetatarsal amputation Code(s): I73.9 - Peripheral vascular disease, unspecified Category: Medical Plan: In short she appears to be doing extremely well with her right trans met amp. Fortunately she has had multiple medical issues in the interim. We will schedule her for one-month follow-up. Hopefully will be healed at that time and we can start her on a prosthetic for shoe insert. We did encourage ambulation. Once again she will follow up with us in approximately 1 months time. Thank you for allowing us to assist in her care. If there are any questions or concerns please do not hesitate to contact us Coding Level of Care Code Est Pt Level 3 (55600) Diagnoses PAD (peripheral artery disease) I73.9
--- OUTSIDE RECORDS SUMMARY | 2025-06-03 17:55 | XMS_ITS | Encounter Summary ---
Author Organization [facility] Address [address] [place] [address] Phone Care Team Providers Care Hvac Mechanic Name Role Phone Afua Leblanc CNP Primary Care Provider [phone] Reason for Visit * Reason Onset Date Comments VNA Update 03/18/2025 Encounter Details Date Type Department Care Team (Late st Contact Info) Description 03/18/2025 Telephone [facility] [address] [place], [place] [phone] Afua Leblanc CNP [address] [facility] [address] [place], [place] [phone] [email or web address] VNA Update Social History Tobacco Use Types Packs/Day Years [...] Job End Date Retired, previously worked at [employer] Not on file Not on file Not on file documented as of this encounter Progress Notes * Kristen Baptiste - 03/18/2025 11:19 AM EDT Dohna said pt is noncompliant pt being discharged from [facility] Central Support Blade Sharpener (Please do not reply to this user; this inbox is not monitored.) Thank you. documented in this encounter Plan of Treatment Upcoming Encounters Date Type Department Care Team (Late st Contact Info) Description 06/04/2025 12:30 AM EDT Home Care Visit [facility] [address] [place] [phone] Natalie Watts [address] [place] [address] 06/06/2025 3:00 AM EDT Home Care Visit [facility] [address] [place] [phone] Cee Peters RN [address] [place] [address] 06/09/2025 1:30 AM EDT Home Care Visit [facility] [address] [place] [phone] Cee Peters RN [address] [place] [address] 06/11/2025 12:30 AM EDT Home Care Visit [facility] [address] [place] [phone] Cee Peters RN [address] [place] [address] 06/13/2025 1:30 AM EDT Home Care Visit [facility] [address] [place] [address] Cee Peters RN [address] [place] [address] 06/13/2025 3:00 PM EDT Office Visit [facility] [address] [place] [address] [address]rd Floor, [address] [place] [address] Leda, Sumaya Jonas, [address] [address] 06/16/2025 12:30 AM EDT Home Care Visit [facility] [address] [place] [phone] Cee Peters RN [address] [place] [address] 06/18/2025 12:30 AM EDT Home Care Visit [facility] [address] [place] [phone] Cee Peters RN [address] [place] [address] 06/20/2025 1:00 AM EDT Home Care Visit [facility] [address] [place] [phone] Cee Peters RN [address] [place] [address] 06/23/2025 12:30 AM EST Home Care Visit [facility] [address] [place] [phone] Cee Peters RN [address] [place] [address] 06/25/2025 12:30 AM EST Home Care Visit [facility] [address] [place] [phone] Cee Peters RN [address] [place] [address] 06/27/2025 1:00 AM EST Home Care Visit [facility] [address] [place] [address] Cee Peters RN [address] [place] [address] 06/30/2025 12:30 AM EST Home Care Visit [facility] [address] [place] [phone] Cee Peters RN [address] [place] [address] 07/02/2025 12:30 AM EST Home Care Visit [facility] [address] [place] [phone] Cee Peters RN [address] [place] [address] 07/04/2025 1:00 AM EST Home Care Visit [facility] [address] [place] [phone] Cee Peters RN [address] [place] [address] 07/07/2025 12:30 AM EST Home Care Visit [facility] [address] [place] [phone] Cee Peters RN [address] [place] [address] 07/09/2025 12:30 AM EST Home Care Visit [facility] [address] [place] [address] Cee Peters RN [address] [place] [address] 07/11/2025 1:00 AM EST Home Care Visit [facility] [address] [place] [address] Cee Peters RN [address] [place] [address] 07/14/2025 12:30 AM EST Home Care Visit [facility] [address] [place] [address] Cee Peters RN [address] [place] [address] 07/16/2025 12:30 AM EST Home Care Visit [facility] [address] [place] [address] Cee Peters RN [address] [place] [address] 07/18/2025 1:00 AM EST Home Care Visit [facility] [address] [place] [address] Cee Peters RN [address] [place] [address] 07/21/2025 Appointment [facility] [address] [place] [address] Cee Peters RN [address] [place] [address] 07/23/2025 Home Care Visit [facility] [address] [place], [place] [phone] Cee Peters RN [address] [place] [address] 07/25/2025 Home Care Visit [facility] [address] [place] [address] Cee Peters RN [address] [place] [address] documented as of this encounter Goals Goal [...] Last 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 It is not the complete legal health record.[facility]
--- OUTSIDE RECORDS SUMMARY | 2025-06-03 17:55 | XMS_ITS | Encounter Summary ---
Author Organization [facility] Address [address] [place] [address] Phone Care Team Providers Care Power Transformer Repair Supervisor Name Role Phone Afua Leblanc SHERLY Primary Care Provider [phone] Encounter Details Date Type Department Care Team (Late st Contact Info) Description 05/16/2025 Procedure Pass [facility] [address] [place] [address] Social History Tobacco Use Types Packs/Day Years [...] your housing situation today? I have segun pyle 05/16/2025 How many times have you move [...] Job End Date Retired, previously worked at [employer] Not on file Not on file Not on file documented as of this encounter Functional Status * Calculated C-SSRS Risk Score (Lifetime/Recent) Answer Date of Assessment Author No Risk Indicated 05/16/2025 8:00 PM EDT Wanda Flowers RN * Hardin Suicide Severity Rating Scale (Screener/Recent Self-Report) Question Answer Date of Assessment Author 1. Wish to be (Past 1 Month) No 025 8:00 PM EDT Wanda Flowers RN 2. Non-Specific Active Suici deana Thoughts (Past 1 Month) No 05/16/2025 8:00 PM EDT Altagracia Flowers ea, RN 6. Suicidal Behavior (Lifetime) No 8:00 PM EDT Wanda Flowers RN documented as of this encounter Plan of Treatment Upcoming Encounters Date Type Department Care Team (Late st Contact Info) Description 06/04/2025 12:30 AM EDT Home Care Visit [facility] [address] [place] [phone] Natalie Watts [address] [place] [address] 06/06/2025 3:00 AM EDT Home Care Visit [facility] [address] [place] [phone] Cee Peters RN [address] [place] [address] 06/09/2025 1:30 AM EDT Home Care Visit [facility] [address] [place] [phone] Cee Peters RN [address] [place] [address] 06/11/2025 12:30 AM EDT Home Care Visit [facility] [address] [place] [phone] Cee Peters RN [address] [place] [address] 06/13/2025 1:30 AM EDT Home Care Visit [facility] [address] [place] [phone] Cee Peters RN [address] [place] [address] 06/13/2025 3:00 PM EDT Office Visit [facility] [address] Floor, [address] [place] [address] Sumaya Tompkins, [address] [address] 06/16/2025 12:30 AM EDT Home Care Visit [facility] [address] [place] [phone] Cee Peters RN [address] [place] [address] 06/18/2025 12:30 AM EDT Home Care Visit [facility] [address] [place] [phone] Cee Peters RN [address] [place] [address] 06/20/2025 1:00 AM EDT Home Care Visit [facility] [address] [place] [phone] Cee Peters RN [address] [place] [address] 06/23/2025 12:30 AM EST Home Care Visit [facility] [address] [place] [phone] Cee Peters RN [address] [place] [address] 06/25/2025 12:30 AM EST Home Care Visit [facility] [address] [place] [address] Cee Peters RN [address] [place] [address] 06/27/2025 1:00 AM EST Home Care Visit [facility] [address] [place] [phone] Cee Peters RN [address] [place] [address] 06/30/2025 12:30 AM EST Home Care Visit [facility] [address] [place] [phone] Cee Peters RN [address] [place] [address] 07/02/2025 12:30 AM EST Home Care Visit [facility] [address] [place] [phone] Cee Peters RN [address] [place] [address] 07/04/2025 1:00 AM EST Home Care Visit [facility] [address] [place] [phone] Cee Peters RN [address] [place] [address] 07/07/2025 12:30 AM EST Home Care Visit [facility] [address] [place] [phone] Cee Peters RN [address] [place] [address] 07/09/2025 12:30 AM EST Home Care Visit [facility] [address] [place] [phone] Cee Peters RN [address] [place] [address] 07/11/2025 1:00 AM EST Home Care Visit [facility] [address] [place] [address] Cee Peters RN [address] [place] [address] 07/14/2025 12:30 AM EST Home Care Visit [facility] [address] [place] [address] Cee Peters RN [address] [place] [address] 07/16/2025 12:30 AM EST Home Care Visit [facility] [address] [place] [address] Cee Peters RN [address] [place] [address] 07/18/2025 1:00 AM EST Home Care Visit [facility] [address] [place] [phone] Cee Peters RN [address] [place] [address] 07/21/2025 Appointment [facility] [address] [place] [address] Cee Peters RN [address] [place] [address] 07/23/2025 Home Care Visit [facility] [address] [place] [address] Cee Peters RN [address] [place] [address] 07/25/2025 Home Care Visit [facility] [address] [place] [address] Cee Peters RN [address] [place] [address] documented as of this encounter Goals Goal [...] documented as of this encounter Care Teams Power Transformer Repair Supervisor Relationship Specialty Start Date End Date Afua Leblanc CNP [address] [place] [address], [address] [place] [address] PCP - General Nurse Practitioner 05/24/23 documented as of this encounter Additional Source Comments The information contained in this document represents components of the legal health record. It is not the complete legal health record.[facility]
--- OUTSIDE RECORDS SUMMARY | 2025-06-03 17:55 | XMS_ITS | Encounter Summary ---
Author Organization [facility] Address [address] [place] [address] Phone Care Team Providers Care Financial Internship Name Role Phone Afua Leblanc CNP Primary Care Provider [phone] Reason for Visit * Reason Onset Date Comments VNA Update 05/06/2025 Encounter Details Date Type Department Care Team (Late st Contact Info) Description 05/06/2025 Telephone [facility] [address] [place], [place] [phone] Afua Leblanc CNP [address] [facility] [address] [place], [place] [phone] [email or web address] VNA Update Social History Tobacco Use Types [...] Job End Date Retired, previously worked at [employer] Not on file Not on file Not on file documented as of this encounter Progress Notes * Bertin Edge - 05/06/2025 1:55 PM EDT [facility] called in, Pt BP was 160/90 today, Pt had not taken her meds, unclear if she is taking themcorrectly, Pt daughter said the patient often refuses to take her medication. No call back needed. Central Support [employer] (Please do not reply to this user; this inbox is not monitored.) Thank you. documented in this encounter Plan of Treatment Upcoming Encounters Date Type Department Care Team (Late st Contact Info) Description 06/04/2025 12:30 AM EDT Home Care Visit [facility] [address] [place] [phone] Natalie Watts [address] [place] [address] 06/06/2025 3:00 AM EDT Home Care Visit [facility] [address] [place] [phone] Cee Peters RN [address] [place] [address] 06/09/2025 1:30 AM EDT Home Care Visit [facility] [address] [place] [phone] Cee Peters RN [address] [place] [address] 06/11/2025 12:30 AM EDT Home Care Visit [facility] [address] [place] [phone] Cee Peters RN [address] [place] [address] [email or web address] 06/13/2025 1:30 AM EDT Home Care Visit [facility] [address] [place] [phone] Cee Peters RN [address] [place] [address] [email or web address] 06/13/2025 3:00 PM EDT Office Visit [facility] [address] [place] [address] [address]rd Floor, [address] [place] [address] Sumaya Tompkins, [address] [address] [email or web address] 06/16/2025 12:30 AM EDT Home Care Visit [facility] [address] [place] [phone] Cee Peters RN [address] [place] [address] [email or web address] 06/18/2025 12:30 AM EDT Home Care Visit [facility] [address] [place] [phone] Cee Peters RN [address] [place] [address] [email or web address] 06/20/2025 1:00 AM EDT Home Care Visit [facility] [address] [place] [phone] Cee Peters RN [address] [place] [phone] [email or web address] 06/23/2025 12:30 AM EST Home Care Visit [facility] [address] [place] [phone] Cee Peters RN [address] [address] [place] [address] [email or web address] 06/25/2025 12:30 AM EST Home Care Visit [facility] [address] [place] [phone] Cee Peters RN [address] [place] [address] [email or web address] 06/27/2025 1:00 AM EST Home Care Visit [facility] [address] [place] [phone] Cee Peters RN [address] [place] [address] [email or web address] 06/30/2025 12:30 AM EST Home Care Visit [facility] [address] [place] [phone] Cee Peters RN [address] [place] [phone] [email or web address] 07/02/2025 12:30 AM EST Home Care Visit [facility] [address] [place] [phone] Cee Peters RN [address] [place] [address] [email or web address] 07/04/2025 1:00 AM EST Home Care Visit [facility] [address] [place] [phone] Cee Peters RN [address] [place] [address] [email or web address] 07/07/2025 12:30 AM EST Home Care Visit [facility] [address] [place] [phone] Cee Peters RN [address] [place] [phone] [email or web address] 07/09/2025 12:30 AM EST Home Care Visit [facility] [address] [place] [phone] Cee Peters RN [address] [place] [address] 07/11/2025 1:00 AM EST Home Care Visit [facility] [address] [place] [phone] Cee Peters RN [address] [place] [address] 07/14/2025 12:30 AM EST Home Care Visit [facility] [address] [place] [phone] Cee Peters RN [address] [place] [address] [email or web address] 07/16/2025 12:30 AM EST Home Care Visit [facility] [address] [place] [phone] Cee Peters RN [address] [place] [address] [email or web address] 07/18/2025 1:00 AM EST Home Care Visit [facility] [address] [place] [address] Cee Peters RN [address] [place] [address] [email or web address] 07/21/2025 Appointment [facility] [address] [place] [address] Cee Peters RN [address] [place] [address] 07/23/2025 Home Care Visit [facility] [address] [place] [address] Cee Peters RN [address] [place] [address] 07/25/2025 Home Care Visit [facility] [address] [place] [address] Cee Peters RN [address] [place] [address] documented as of this encounter Goals Goal [...] documented as of this encounter Care Teams Financial Internship Relationship Specialty Start Date End Date Afua Leblanc CNP [address] [place] [address], [address] [place] [address] PCP - General Nurse Practitioner 05/24/23 documented as of this encounter Additional Source Comments The information contained in this document represents components of the legal health record. It is not the complete legal health record.[facility]
--- OUTSIDE RECORDS SUMMARY | 2025-06-03 17:55 | XMS_ITS ---
Care Plan Created on: June 03, 2025 Belkys Florian : 1950 Sex: Female Author Organization [facility] Address [address] [place] [address] Phone Care Team Providers Care Art Historian Name Role Phone Afua Leblanc SHERLY Primary Care Provider Active Problems Problem Noted Date Diagnosed Date Acute kidney injury superimposed on chronic kidn ey disease 09/24/2024 Assessment & Plan (05/27/2025 8:42 AM EDT): - Labs pending this morning - Continue Lokelma 10 g for K5.4 or above. -Low K diet. -for now if no urgency for cardiac cath await until renal function stabilizes, if urgent cath required minimization IV contrast amount strategies and preemptively use of IVFs can be tried. -On discharge to follow-up with her outpatient [facility] group. Assessment & Plan (05/26/2025 12:55 PM EDT): Noted to have stage IV CKD, baseline Cr 2.7 from diabetic nephropathy. At presentation creatinine is 3.9, up trended with diuresis to 4.8 no back down to prior levels. Her PCP notes indicates she follows both with nephrology and endocrinology at [facility] - renal u/s no hydronephrosis, no stones - Neprhology following - Lokelma for K > 5.4 - Will need outpatient follow up with [facility] Assessment & Plan (05/26/2025 10:37 AM EDT): - renal function unchanged hyperkalemia noted -Suggest to keep Lokelma 10 g for K5.4 or above. -Low K diet. -for now if no urgency for cardiac cath await until renal function stabilizes, if urgent cath required minimization IV contrast amount strategies and preemptively use of IVFs can be tried. -On discharge to follow-up with her outpatient [facility] group. Assessment & Plan (05/25/2025 3:57 PM EDT): Noted to have stage IV CKD, at presentation creatinine is 3.9, higher than previous of 2.7 documented in September Her PCP notes indicates she follows both with nephrology and endocrinology at [facility] - renal u/s no hydronephrosis, no stones Assessment & Plan (05/25/2025 10:27 AM EDT): - renal function unchanged with reasonable potassium level- will follow after intiation of loop as noted above -for now if no urgency for cardiac cath await until renal function stabilizes, if urgent cath required minimization IV contrast amount strategies and preemptively use of IVFs can be tried. -On discharge to follow-up with her outpatient nephrology group. Assessment & Plan (05/24/2025 4:40 PM EDT): Noted to have stage IV CKD, at presentation creatinine is 4, higher than previous of 2.7 documented in September Her PCP notes indicates she follows both with nephrology and endocrinology at [facility] Will need very close monitoring of her renal function and electrolytes in the setting of aggressive diuresis - renal u/s no hydronephrosis, no stones Assessment & Plan (05/24/2025 11:39 AM EDT): - renal function slightly better as noted by decline in sCr- given lack of volume, metabolic issues will continue to follow closely without need for aggressive intervention -for now if no urgency for cardiac cath await until renal function stabilizes, if urgent cath required minimization IV contrast amount strategies and preemptively use of IVFs can be tried. -On discharge to follow-up with her outpatient nephrology group. Assessment & Plan (05/23/2025 1:01 PM EDT): Noted to have stage IV CKD, at presentation creatinine is 4, higher than previous of 2.7 documented in September Her PCP notes indicates she follows both with nephrology and endocrinology at [facility] Will need very close monitoring of her renal function and electrolytes in the setting of aggressive diuresis - renal u/s no hydronephrosis, no stones As above. Gentle hydration and repeat testing in the morning Assessment & Plan (05/23/2025 11:12 AM EDT): -for now if no urgency for cardiac cath await until renal function stabilizes, if urgent cath required minimization IV contrast amount strategies and preemptively use of IVFs can be tried. -Continue with tight glucose control -Low-sodium diet -Could hold off on empagliflozin until renal function stabilizes. - strict I/Os, bladder scans every shift,daily weights, please avoid nephrotoxins (IV contrast, NSAIDs) -On discharge to follow-up with her outpatient nephrology group. Assessment & Plan (05/22/2025 11:38 AM EDT): Noted to have stage IV CKD, at presentation creatinine is 4, higher than previous of 2.7 documented in September Her PCP notes indicates she follows both with nephrology and endocrinology at [facility] Will need very close monitoring of her renal function and electrolytes in the setting of aggressive diuresis - renal u/s no hydronephrosis, no stones Discussed with Dr. Waters 05/22 Assessment & Plan (05/22/2025 8:10 AM EDT): -Continue with tight glucose control -Low-sodium diet -Could hold off on empagliflozin until renal function stabilizes. - strict I/Os, bladder scans every shift,daily weights, please avoid nephrotoxins (IV contrast, NSAIDs) -On discharge to follow-up with her outpatient nephrology group. Assessment & Plan (05/21/2025 2:27 PM EDT): Noted to have stage IV CKD, at presentation creatinine is 4, higher than previous of 2.7 documented in September Her PCP notes indicates she follows both with nephrology and endocrinology at [facility] Will need very close monitoring of her renal function and electrolytes in the setting of aggressive diuresis - renal u/s no hydronephrosis, no stones Assessment & Plan (05/21/2025 10:28 AM EDT): -resume Bumex, suggest 2 mg IV BID -Continue with tight glucose control -Low-sodium diet -Could hold off on empagliflozin until renal function stabilizes. - strict I/Os, bladder scans every shift,daily weights, please avoid nephrotoxins (IV contrast, NSAIDs) -On discharge to follow-up with her outpatient nephrology group. Assessment & Plan (05/20/2025 6:58 PM EDT): Noted to have stage IV CKD, at presentation creatinine is 4, higher than previous of 2.7 documented in September Her PCP notes indicates she follows both with nephrology and endocrinology at [facility] Will need very close monitoring of her renal function and electrolytes in the setting of aggressive diuresis - renal u/s no hydronephrosis, no stones - 05/20 see above acute worsening in creatinine holding diuretic nephrology following closely Assessment & Plan (05/20/2025 9:39 AM EDT): - Unfortunately creatinine continues to rise suggest to give a bolus of IV isotonic solution 500 mL today. Continue to hold diuretics -Continue with tight glucose control -Low-sodium diet -Could hold off on empagliflozin until renal function stabilizes. - strict I/Os, bladder scans every shift,daily weights, please avoid nephrotoxins (IV contrast, NSAIDs) -On discharge to follow-up with her outpatient nephrology group. Assessment & Plan (05/19/2025 5:11 PM EDT): Noted to have stage IV CKD, at presentation creatinine is 4, higher than previous of 2.7 documented in September Her PCP notes indicates she follows both with nephrology and endocrinology at [facility] Will need very close monitoring of her renal function and electrolytes in the setting of aggressive diuresis - renal u/s no hydronephrosis, no stones - has tolerated diuresis creatinine increased slightly, nephrology has been following Assessment & Plan (05/19/2025 9:00 AM EDT): -Renal ultrasound reviewed no hydronephrosis, blood pressure improving, creatinine slightly up, may discontinue IV Bumex drip, fortunately her weight has come down from 162 pounds on admission down 149 pounds, May switch over to oral Bumex 2 mg p.o. twice daily -Continue with tight glucose control -Low-sodium diet -Could hold off on empagliflozin until renal function stabilizes. - strict I/Os, bladder scans every shift,daily weights, please avoid nephrotoxins (IV contrast, NSAIDs) -On discharge to follow-up with her outpatient nephrology group. Assessment & Plan (05/18/2025 4:47 PM EDT): Noted to have stage IV CKD, at presentation creatinine is 4, higher than previous of 2.7 documented in September Her PCP notes indicates she follows both with nephrology and endocrinology at [facility] Will need very close monitoring of her renal function and electrolytes in the setting of aggressive diuresis - renal u/s no hydronephrosis, no stones Assessment & Plan (05/18/2025 8:13 AM EDT): -Renal parameters appear to be improving responding to current diuretic approach, suggested continue to diurese on IV bumetanide drip -Continue to maintain vasodilator therapy obtain echocardiogram -Continue with tight glucose control -Low-sodium diet -Strict low-sodium diet -Could hold off on empagliflozin until renal function stabilizes. - strict I/Os, bladder scans every shift,daily weights, please avoid nephrotoxins (IV contrast, NSAIDs) - check renal US Assessment & Plan (05/17/2025 2:36 PM EDT): Noted to have stage IV CKD, at presentation creatinine is 4, higher than previous of 2.7 documented in September Her PCP notes indicates she follows both with nephrology and endocrinology at [facility] Will need very close monitoring of her renal function and electrolytes in the setting of aggressive diuresis - Check renal ultrasound as recommended by Dr. Jones nephrology Assessment & Plan (05/16/2025 6:00 PM EDT): Noted to have stage IV CKD, today creatinine is 4, higher than previous of 2.7 documented in September Her PCP notes indicates she follows both with nephrology and endocrinology at [facility] We will consult our air quality technician while she is here, diurese as above and avoid nephrotoxic medications as able Assessment & Plan (09/25/2024 10:37 AM EST): Creatinine noted increased to 2.7 mg/dL I suspect unable to tolerate further diuresis suggest diuretic holiday. Assessment & Plan (09/24/2024 12:36 PM EST): Assessment & Plan (09/24/2024 10:55 AM EST): Creatinine noted increased to 2.7 mg/dL I suspect unable to tolerate further diuresis suggest diuretic holiday. CKD stage 4 secondary to hypertension 09/23/2024 Assessment & Plan (09/25/2024 10:38 AM EST): PROTEINURIC CKD, Creatinine near her baseline back in March last year 1.7-2.4 mg/dL. Eventually will benefit from SGLT2 inhibitor as outpt. Anemia of Fe Deficiency and anemia of CKD noted,Iron administered, administer 1 dose of SHERICE while patient Retacrit 20,000 units x 1 Check stool for hemoccult. Assessment & Plan (09/24/2024 10:55 AM EST): PROTEINURIC CKD, Creatinine near her baseline back in March last year 1.7-2.4 mg/dL. Eventually will benefit from SGLT2 inhibitor Anemia of Fe Deficiency noted, ok to give IV Fe infusion while inpatient. Guaiac stools. Assessment & Plan (09/24/2024 12:36 PM EST): Presented with a creatinine of 1.8, baseline renal function noted to be to be between 1.7 and 2.4. 09/24: Creatinine is worsened from 2.2-2.7 today. ANNIE on CKD. Appears dry on exam; likely secondary to diuresis. -Hold diuretics; encourage oral hydration today -Renally adjust medications, avoid nephrotoxins -Nephrology appreciated Assessment & Plan (09/23/2024 4:02 PM EST): As above Assessment & Plan (09/23/2024 9:51 AM EST): Creatinine near her baseline back in March last year 1.7-2.4 mg/dL. Suggest to increase carvedilol to 12.5 mg twice a day at nifedipine XL 60 mg daily at bedtime to current regimen. He appears more euvolemic suggestive down escalate IV diuretics to oral torsemide 20 mg p.o. twice a day Nutritional education low-sodium diet. For completeness will add a urine protein creatinine ratio CHF (congestive heart failure) 09/22/2024 Assessment & Plan (10/21/2024 3:24 PM EST): Euvolemic on exam today. Believed to now be on carvedilol 25mg BID, amlodipine 2.5mg, isosorbide 60mg BID, bumetanide 1mg BID, hydralazine 100mg TID, and Jardiance 10mg. Denies side effects. She reports she is now feeling well, denies SOB, CP, or dizziness. Referral placed to [facility] cardiology. Assessment & Plan (09/24/2024 12:36 PM EST): Patient has chronic kidney disease, found to be volume overloaded on admission, admits to not taking meds at times, is not on a loop diuretic at home, also notes dietary indiscretion. Chest x-ray on admission showed small bilateral pleural effusions, ill-defined bilateral opacities. Troponins in the mid 30s, no delta change. Elevated BNP. TTE last in 2018 showed an EF of 60%. 09/24: Patient appears euvolemic this morning, dry. No shortness of breath, not requiring oxygen. We will update her echo. Hold any additional diuretics, will consider low-dose diuretic at discharge. -Continue w/ increased carvedilol 12.5 mg twice daily -Continue w/increased nifedipine XL 60 mg daily at bedtime -Hold diuretics; consider low-dose diuretic on discharge -Updating TTE pending -Telemetry monitoring -Monitor daily weights/intake outtake (dry weight about 144 pounds it appears) Assessment & Plan (09/23/2024 4:02 PM EST): Patient has chronic kidney disease, found to be volume overloaded on admission, admits to not taking meds at times, is not on a loop diuretic at home, also notes dietary indiscretion. Patient reported she was wheezing and tired yesterday but that has since resolved. Patient does not appear to be as dyspneic and speakingin full sentences without difficulty. Upon auscultation lungs had diminished rales and better air movement compared to yesterday. Chest x-ray on admission showed small bilateral pleural effusions, ill-defined bilateral opacities. Troponins in the mid 30s, no delta change. Nephrology consultation appreciated, recommends down titrating IV diuretics to oral torsemide 20 mg twice a day, increasing carvedilol to 12.5 mg twice daily and nifedipine XL 60 mg daily at bedtime Urine protein creatinine ratio pending Continue emphasis on low-sodium diet and patient education regarding taking her meds, has a very supportive family Assessment & Plan (09/22/2024 4:23 PM EST): End stage renal disease Pulmonary edema in a patient with known history of CKD per labs baseline creatinine 1.8 mg/dL, chest x-ray with bilateral pulm effusions and opacities consistent with pulmonary edema. Doubt infection as patient has not had a fever - Patient reports shortness of breath and chest symptoms especially when moving. 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 On exam she has - Respiratory - rales bilaterally - Abd - abdomen distended, non tender. Imaging CXR - Small bilateral pleural effusions. Ill-defined bilateral opacities may represent pulmonary edema. Plan - Monitor I/Os - check weight daily - monitor SPO2 - continue diuresis -Consulting air quality technician as above -Sodium restriction and education DM (diabetes mellitus), type 2 04/04/2024 Assessment & Plan (04/04/2024 6:28 PM EDT): Patient is on insulin at home with nightly Basaglar 25 units, 12 units 3 times daily with meals. Manage here with conservatively dosed insulin. -Since she will be n.p.o. in the morning I have held off on long-acting insulin tonight -3 times daily mealtime insulin 6 units -moderate dose sliding scale with meals and nightly -glucose monitoring with meals and nightly. -diabetic diet Osteomyelitis 04/04/2024 Assessment & Plan (04/04/2024 6:30 PM EDT): Patient had TMA for osteomyelitis of the right foot in [facility] 08/2023. After surgery she was in a detention until mid January, and has been at home since that time with family taking care of her wound with support from vascular surgery, Dr. Moran. Persistent wound infection, images in chart. No leukocytosis or fever. X-ray of the foot today concerning for osteomyelitis in the lateral aspect of the base of the fifth metatarsal. Dr. Haas to follow, consult in the morning. Continuing IV antibiotic therapy with cefepime and vancomycin. Discussed with the pharmacist who will be ordering appropriate dosing and dosing intervals with her foot infection and acute renal failure. Defer to general surgery if MRI of the foot is needed. Will make her n.p.o. at midnight in case procedure is warranted. Aspirin and Plavix held. DVT prophylaxis with SCDs. Osteomyelitis of right foot 11/03/2022 Overview (11/03/2022): She has refused the recommended revascularization surgery of her right lower extremity (SFA occlusion). She was discharged from the hospital on 6 weeks of IV daptomycin daily. Have sent her for renal labs today. She has a follow-up scheduled with vascular surgery and asked her to make sure she has a appointment with infectious disease(I believe this was arranged during her hospitalization at [facility]) Assessment & Plan (04/04/2024 12:45 PM EDT): Belkys has an open wound of the right lower foot. Wound cultures from yesterday are growing some bacteria but the organism is not yet known and specificity is not yet known. I gave her guidance to go to the emergency room for an evaluation and likely admission-at first she was against this but after reviewing her kidney function as well she was agreeable to go to the emergency room. Her son will drive her in. She will need a further workup. She will follow-up with her PCP as outpatient. She understands and agrees. Assessment & Plan (04/04/2024 10:04 PM EDT): S/p midfoot amputation. I am concerned she has developed osteomyelitis again at the site. She is not receiving proper wound care. I have advised they need [facility] wound care involved again and they are agreeable. Discussed recommendation for ceftriaxone and oral antibiotics at this time. They refuse antibiotic treatment and are agreeable only to calling Dr. Puentes again for follow up. Wound culture obtained today and referral placed to wound care. I have asked them to go for xray today. Strongly urged this needs to be addressed. Superficial femoral artery occlusion 11/03/2022 Overview (11/03/2022): She follows with vascular at [facility]. She refused revascularization. Assessment & Plan (11/03/2022 1:16 PM EDT): We discussed risks leading to need for another amputation. 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 High potassium fluid intake may have also played a role. -Continue low potassium diet Assessment & Plan (09/22/2024 4:23 PM EST): Mild hyperkalemia is a K less then or equal to 5.5 mEq/L, moderate hyperkalemia is 5.5 - 6.5 mEq/L. Hyperkalemia likely occurred as a result of hyporeninemic hypoaldosteronism in a patient with known CKD secondary to diabetic nephropathy and inability to excrete potassium. Patients Potassium is 5.1 currently after Lokelma. Up to date recommendations : Patients do not need rapid correction of serum potassium in the setting of mild or moderate hyperkalemia caused by CKD. Treatment can include dietary modification and the use of diuretics. Discontinue or reduce drugs that inhibit the RAAS system. Plan - Serial BMP Q 4h (frequent BMP mostly for hyp hyponatremia but we will monitor potassium as well) - continue Lokelma 10 mg daily if K rises above 5.4 as per air quality technician - continue tele monitoring - EKG - control blood glucose with sliding scale Assessment & Plan (09/22/2024 8:29 AM EST): As a result of hyporeninemic hypoaldosteronism in a patient with known CKD secondary to diabetic nephropathy and inability to excrete potassium. High potassium fluid intake may have also played a role. Assessment & Plan (04/04/2024 6:32 PM EDT): Hyperkalemia treated in the emergency department with a cocktail with calcium, insulin and glucose, Lokelma, IV fluids. Continuing IV hydration overnight with NS. Holding off on further doses of Lokelma for now, defer to nephrology consult in the morning. PVR requested to rule out obstruction. Will also order a renal bladder ultrasound. Serial BMP monitoring. Assessment & Plan (04/04/2024 12:45 PM EDT): Belkys has hypokalemia noted on last blood work-she was eventually agreeable to go to the emergency room-she will need repeat labs and treatment. Her son will be driving her in. Assessment & Plan (09/20/2021 2:17 PM EST): I asked her to stop drinking the banana smoothies daily. We will recheck potassium. Primary insomnia 06/17/2021 Assessment & Plan (06/17/2021 5:51 PM EDT): Discussed how her poor physical health is likely causing her sleep issues. Discussed improving self care & medication compliance Type II diabetes mellitus wi th peripheral circulatory disorder 05/24/2020 Assessment & Plan (05/26/2025 11:17 AM EDT): The patient does appear to be picking up her insulin, right now she appears to only be picking up aspart although has been prescribed glargine multiple times in the past and states she sometimes takes it, she thinks around 20 units - Hemoglobin A1c 9.0 (04/2025) - Multiple hypoglycemic event 05/20, 05/23 likely due to inpatient diet restriction of carbohydrates. 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 There does not appear to be acute infection Assessment & Plan (05/25/2025 3:57 PM EDT): The patient does appear to be picking up her insulin, right now she appears to only be picking up aspart although has been prescribed glargine multiple times in the past and states she sometimes takes it, she thinks around 20 units Hemoglobin A1c of 9 blood sugar 239 at presentation She had a hypoglycemic event and her initial insulin regimen was decreased, it was then gradually increased on 05/20 would hold off on any further increases She has a diabetic foot wound on the right and left left stump wound See by wound RN. There does not appear to be acute infection Assessment & Plan (05/24/2025 4:40 PM EDT): The patient does appear to be picking up her insulin, right now she appears to only be picking up aspart although has been prescribed glargine multiple times in the past and states she sometimes takes it, she thinks around 20 units Hemoglobin A1c of 9 blood sugar 239 at presentation She had a hypoglycemic event and her initial insulin regimen was decreased, it was then gradually increased on 05/20 would hold off on any further increases She has a diabetic foot wound on the right and left left stump wound See by wound RN. There does not appear to be acute infection Assessment & Plan (05/23/2025 1:01 PM EDT): The patient does appear to be picking up her insulin, right now she appears to only be picking up aspart although has been prescribed glargine multiple times in the past and states she sometimes takes it, she thinks around 20 units Hemoglobin A1c of 9 blood sugar 239 at presentation She had a hypoglycemic event and her initial insulin regimen was decreased, it was then gradually increased on 05/20 would hold off on any further increases She has a diabetic foot wound on the right and left left stump wound See by wound RN. There does not appear to be acute infection Assessment & Plan (05/22/2025 11:38 AM EDT): The patient does appear to be picking up her insulin, right now she appears to only be picking up aspart although has been prescribed glargine multiple times in the past and states she sometimes takes it, she thinks around 20 units Hemoglobin A1c of 9 blood sugar 239 at presentation She had a hypoglycemic event and her initial insulin regimen was decreased, it was then gradually increased on 05/20 would hold off on any further increases She has a diabetic foot wound on the right and left left stump wound See by wound RN. There does not appear to be acute infection Assessment & Plan (05/21/2025 2:27 PM EDT): The patient does appear to be picking up her insulin, right now she appears to only be picking up aspart although has been prescribed glargine multiple times in the past and states she sometimes takes it, she thinks around 20 units Hemoglobin A1c of 9 blood sugar 239 at presentation She had a hypoglycemic event and her initial insulin regimen was decreased, it was then gradually increased on 05/20 would hold off on any further increases She has a diabetic foot wound on the right and left left stump wound See by wound property utilization manager & Plan (05/20/2025 6:58 PM EDT): The patient does appear to be picking up her insulin, right now she appears to only be picking up aspart although has been prescribed glargine multiple times in the past and states she sometimes takes it, she thinks around 20 units Hemoglobin A1c of 9 blood sugar 239 at presentation She had a hypoglycemic event and her initial insulin regimen was decreased, it was then gradually increased on 05/20 would hold off on any further increases She has a diabetic foot wound on the right and left left stump wound See by wound property utilization manager & Plan (05/19/2025 5:11 PM EDT): The patient does appear to be picking up her insulin, right now she appears to only be picking up aspart although has been prescribed glargine multiple times in the past and states she sometimes takes it, she thinks around 20 units Hemoglobin A1c of 9 blood sugar 239 at presentation After hypoglycemia - increase prandial insulin She has a diabetic foot wound on the right and left left stump wound See by wound property utilization manager & Plan (05/18/2025 4:47 PM EDT): The patient does appear to be picking up her insulin, right now she appears to only be picking up aspart although has been prescribed glargine multiple times in the past and states she sometimes takes it, she thinks around 20 units Hemoglobin A1c of 9 blood sugar 239 at presentation After hypoglycemia - decreased insulin and will gradually uptitrate as needed She has a diabetic foot wound on the right and we will consult wound nurse Assessment & Plan (05/17/2025 2:36 PM EDT): The patient does appear to be picking up her insulin, right now she appears to only be picking up aspart although has been prescribed glargine multiple times in the past and states she sometimes takes it, she thinks around 20 units Hemoglobin A1c of 9 blood sugar 239 at presentation On current basal bolus insulin blood sugars are a little below goal we will decrease it and continue titrating She has a diabetic foot wound on the right and we will consult wound nurse Assessment & Plan (05/16/2025 6:00 PM EDT): The patient does appear to be picking up her insulin, right now she appears to only be picking up aspart although has been prescribed glargine multiple times in the past and states she sometimes takes it, she thinks around 20 units For now we will place her on basal bolus insulin and determine insulin needs, sliding scale Check A1c Patient states she has not seen an transfer iron operator recently She has a diabetic foot wound on the right and we will consult wound nurse Assessment & Plan (12/28/2024 10:18 PM EDT): She reports she has mostly remained compliant with insulin. She is following with diabetes and nephrology at [facility]. Again, discussed we are not receiving records from them. Her son will obtain these records and have them sent to us. Continues to follow with [facility] for wound care. Assessment & Plan (09/24/2024 10:45 AM EST): Glucose appears to be labile, some hyperglycemia noted in the past, overnight however appears very well-controlled, she had episode of hypoglycemia this morning and 09/24. Suspect her diet is not as strict in outpatient setting. Hypoglycemia resolved with oral glucose supplement. -Reduce Lantus from 20 units to 5 units -Lispro sliding scale as needed -Low carbohydrate diet Assessment & Plan (09/23/2024 4:02 PM EST): Glucose appears to be labile, some hyperglycemia noted in the past, overnight however appears very well-controlled, may need to go down on nighttime insulin as I suspect her diet is more strict here in hospital. Will monitor overnight. Ulcer on right foot without erythema, drainage, or odor. No pitting edema of right lower extremity. Wound care currently at bedside for evaluation. Assessment & Plan (09/22/2024 4:23 PM EST): Patient's diabetes is fairly well-controlled, she also has resultant circulatory issues and history of amputations as well as ongoing wounds. Pressure ulcer on lateral malleolus. DM neuropathic ulcer right foot proximal to 1st and 2nd metatarsal, bandage in place. patients son reports changing dressings regularly. - Glucose 137 - anion gap 15 no evidence of DKA Plan - Continue insulin on sliding scale -Will continue patient's basal insulin - Advance to DM/ low sodium/ low potassium diet - consult wound nurse for wounds, chronic - POCT glucose every 5- 6 hours Assessment & Plan (04/03/2024 9:13 PM EDT): It is unclear how compliant Belkys is with management of diabetes at this time. Reports using Basaglar 25u nightly and Fiasp 12u TID. I would like her to see the diabetes center but she is not agreeable to this. She will go for lab work today and will advise any medication changes once we have these results. Assessment & Plan (05/09/2023 12:01 PM EDT): Belkys has type 2 diabetes. I refilled her medication and diabetes supplies today. She was appreciative. She is due for labs and a Medicare wellness thus I advised her to follow-up with a new PCP in 3 months for Medicare wellness. She will call if there are any other issues or concerns. She understands and agrees. Assessment & Plan (09/01/2021 1:13 PM EST): Advised them to reschedule appt w ophthalmology and book appt w [facility] or [facility] endocrinology Assessment & Plan (09/30/2020 10:18 AM EST): S/p left BKA. Her blood sugar is uncontrolled. She is following w vascular doctor outside of [facility] Status post unilateral below knee amputation, le ft 05/24/2020 Assessment & Plan (06/08/2020 2:11 PM EDT): Wounds appear to be healing well. [facility] is coming several times per week for wound care. Discussed importance of good glycemic control & nutrition to aid healing Thyroid nodule 12/26/2018 Assessment & Plan (04/03/2024 9:14 PM EDT): She reports she is agreeable to US at this time. Order placed today. Assessment & Plan (12/26/2018 5:53 PM EDT): Ultrasound was ordered. She was reminded to reschedule the appointment that she made with endocrinology Pancreatic duct dilated 12/26/2018 Assessment & Plan (04/03/2024 9:14 PM EDT): She reports she is agreeable to US at this time. Order placed today. Assessment & Plan (12/26/2018 5:53 PM EDT): Reviewed with patient and later by phone with daughter that this needs further evaluation to rule out pancreatic cancer. MRI was ordered and she was referred to GI Pacemaker 09/14/2018 Overview (12/26/2018): Pacemaker inserted August 2018 for second-degree heart block. Patient is feeling well. She has follow-up with cardiology next month. Second degree heart block 09/04/2018 Overview (05/24/2020): Presented 09/04/19 with dizziness, EKG showed 2nd degree AV block & bradycardia. She was sent to ER where she was admitted & had a pacemaker implanted. Assessment & Plan (10/22/2018 4:04 PM EST): Programming device evaluation with iterative adjustment of the implantable device to test the function of the device and select optimal permanent program values with analysis review and report. Pacemaker is functioning normally. Final programming changes have been made. No arrhythmias detected. She is scheduled to see in January. We will arrange for routine remote monitoring. Assessment & Plan (09/05/2018 5:28 PM EST): S/p pacemaker placement today by Echo shows preserved LV function, EF 60% --Pacemaker care per cardiology --Monitor telemetry tonight --Chest x-ray pacemaker interrogation tomorrow befor discharge Anemia 07/18/2017 Assessment & Plan (12/28/2024 10:14 PM EDT): She is agreeable to reschedule GI visit at this time. Given contact information to do so. Assessment & Plan (10/21/2024 3:07 PM EST): Scheduled with [facility] 11/14. Assessment & Plan (09/24/2024 12:36 PM EST): Patient presented with a hemoglobin of 9. Appears her baseline is about 10. Denies any history of nausea or vomiting, epigastric pain. No bright red blood per rectum. Notes some history of black stool, though also history of constipation for which she is taking laxatives currently. She has an iron deficiency, likely contributed by chronic kidney disease. No history of colonoscopy. -IV iron x 1 today -Defer EPO to nephrology follow-up outpatient -Change Pepcid for pantoprazole -FIT pending -Trend Assessment & Plan (05/29/2018 8:52 PM EDT): Resolved. Possibly due to chronic kidney disease. We will monitor. CKD (chronic kidney disease), stage III 07/18/20 17 Assessment & Plan (10/21/2024 3:27 PM EST): Encouraged to continue to follow with Dr. Moran and schedule a follow up. Assessment & Plan (04/04/2024 6:09 PM EDT): Patient is followed by nephrology for known history of CKD, stage III. Prior to admission she did have bump in her creatinine up to 2.5 from prior creatinine of 1.2. Current hyperkalemia. -Rehydrating, serial BMP monitoring. Continue gentle IV fluids overnight. -Check PVR to make sure patient is not retaining or obstructed -Nephrology consult requested for the morning. Assessment & Plan (11/03/2022 1:10 PM EDT): She follows with nephrology. She needs to be getting weekly creatinine checks while on daily daptomycin. I sent her for labs today. Assessment & Plan (09/20/2021 2:18 PM EST): Labs ordered Assessment & Plan (06/17/2021 5:52 PM EDT): declining kidney function in setting of uncontrolled DM II. Med compliance really emphasized. Referred to renal Assessment & Plan (09/30/2020 10:18 AM EST): Labs today Assessment & Plan (09/04/2018 9:50 PM EST): Creatinine has improved and we will continue to follow. She has been off of the lisinopril-HCTZ that was previously prescribed. Assessment & Plan (09/04/2018 6:51 PM EST): I gave patient and her son phone number for nephrology. Discussed the importance of glycemic control, adequate fluid intake, advised not to take NSAIDs. Assessment & Plan (11/07/2017 1:31 PM EDT): ANNIE resolved with hydration and blood sugar control. We'll continue to monitor Assessment & Plan (11/02/2017 4:17 PM EDT): Secondary to dehydration, urinary sodium and creatinine have been added to make sure that symptoms are related to prerenal renal failure. Continue with IV hydration. - Electrolytes improved after IV hydration. Sodium now within normal limits. Creatinine improved, previously 1.5 now 1.1 with eGFR improved from 36 to 52. - UA positive for glucose and trace leukocyte esterase, trace bacteria and mucus, and white blood cells. Urine culture pending, currently showing gram-positive cocci. - Will treat with antibiotics given dysuria and recent PCP evaluation. Ciprofloxacin 500 mg twice a day given for 5 days. Depression 07/18/2017 Diabetic retinopathy 07/18/2017 Assessment & Plan (05/09/2023 12:01 PM EDT): Stable-she is taking her medication as directed. She is due for Medicare [id number] with new PCP in 3 months. Assessment & Plan (09/20/2021 2:19 PM EST): Asked to reschedule w ophthalmology Increase tresiba to 50 units QHS. Increase novolog to 15 units TID w meals. Assessment & Plan (09/01/2021 1:14 PM EST): They missed their appt w ophthalmology. I asked them to reschedule it. Assessment & Plan (06/17/2021 5:51 PM EDT): Her vision is getting worse. She has not gone to see ophthalmology after many referrals. Her son says he will help her FU on this Diabetic foot ulcer 07/18/2017 Assessment & Plan (09/24/2024 12:36 PM EST): Ulcer on right foot without erythema, drainage, or odor. No pitting edema of right lower extremity. -Wound care nurse appreciated Assessment & Plan (04/04/2024 6:09 PM EDT): Will need wound nurse consult after seen by general surgery. Poorly controlled type 2 diabetes mellitus with neuropathy 07/18/2017 Overview (08/01/2018): DM w nephropathy, neuropathy & retinopathy. Very poorly controlled due to med & dietary noncompliance Assessment & Plan (10/21/2024 3:27 PM EST): Continues Fiasp insulin, glargine 25u daily, and now Jardiance 10mg. Denies side effects. Son reports improvement in fasting numbers. Denies symptoms of hypoglycemia. Assessment & Plan (05/09/2023 12:02 PM EDT): Follow-up with new PCP in 3 months for Medicare wellness. She is due for labs. Assessment & Plan (11/03/2022 1:11 PM EDT): Reviewed with her high risk of the foot infection. She is high risk for needing another amputation given her severe vascular disease. Continue insulins as prescribed and recommend she see field identification specialist Assessment & Plan (09/28/2022 1:36 PM EST): Stop Jardiance because of her risk of foot wound, history of BKA and the associated increased risk of amputation. Continue 20 units of NovoLog prior to meals, 60 units of Tresiba nightly. update labs today I referred her to the diabetes center in the past and she has not followed up. Today I let her know that I will be leaving [facility] so this is more reason for her to be seen at the diabetes center Assessment & Plan (11/18/2021 2:55 PM EDT): Increase tresiba to 60 units nightly, novolog to 20 units TID 1 month FU for DM Assessment & Plan (09/30/2020 10:17 AM EST): I am concerned she has developed diabetic gastroparesis. I have referred her to endocrine again & to GI. Urged compliance w insulin & ADA diet. Assessment & Plan (06/08/2020 2:10 PM EDT): Reviewed diet w her. Now that her older son & daughter in law moved in w her she is eating better. Increase lantus to 50 units qhs. Increase rapid acting insulin (changing to novolog due to insurance formulary) to 12 units before meals Refilled glucagon & instructed how & when to use if needed Assessment & Plan (12/26/2018 5:53 PM EDT): She was reminded to use her insulin as prescribed and to reschedule her appointment with endocrinology. Assessment & Plan (09/05/2018 5:25 PM EST): Uncontrolled diabetes mellitus. Unclear how adherent she has been to her insulin regimen at home. Blood sugar levels ranging from upper 100s to low 300 H GB A1c 12.9 --Increase Lantus to 40 units tonight --Add mealtime insulin and continue sliding scale Assessment & Plan (09/04/2018 6:51 PM EST): Again reviewed with patient my concern about her uncontrolled diabetes and multiple ongoing risks to health because of this. I also discussed this with her son and urged him to assist her to make an appointment with the diabetes center. I reviewed her insulin dosing is supposed to be 60 units of Lantus nightly and lispro 8 units with meals. She does need doses titrated up but she is difficult to manage because of noncompliance Assessment & Plan (08/01/2018 9:12 PM EST): Stop metformin due to DM nephropathy w worsening renal function. Stop glipizide to reduce risk of hypoglycemia since she is not reliable with her insulin. Asked her to increase Lantus to 60 units nightly and Humalog to 8 units before meals. Today she finally agrees to diabetes center. Assessment & Plan (05/29/2018 8:51 PM EDT): Chronically uncontrolled due to medication and diet noncompliance. In addition to having nursing and social work working with her I have also made several home visits to review medications with patient and her family. Unfortunately she has a pattern of discontinuing medications repeatedly. I have offered her referral several times to transfer iron operator or [facility] and she has read. Today I sent all refills for her to restart. I reminded her that she is overdue for diabetic eye exam. She does have diabetic kidney disease which we have been monitoring. I think will be prudent to have her see renal at some point because she is at high risk for this worsening. Assessment & Plan (11/07/2017 1:30 PM EDT): Reviewed medications and instructions with her, importance of compliance. She did not have medications with her. I will try to make a home visit this week to also meet with her children and review medication dosing instructions Assessment & Plan (10/18/2017 8:43 PM EST): Increase Lantus to 50 units daily. She does not feel ready to introduce Humalog. Continue working on compliance with oral medications and ADA diet. Continue working on compliance with home glucose monitoring Assessment & Plan (08/23/2017 1:39 PM EST): Pharyngitis with patient and family about improving med compliance. Reviewed many risks of uncontrolled diabetes. For now we are going to focus on her using her oral medications and her Lantus and hold off on Humalog. Reviewed ADA diet. Follow-up in 3 months HTN (hypertension) 07/18/2017 Assessment & Plan (12/28/2024 10:16 PM EDT): Blood pressure significantly elevated today. She is asymptomatic. She has not been taking her BP medications. Educated that these medication breaks are likely causing significant harm to kidneys and organs vs allowing them to rest. Belkys appears agreeable to restart medications at this time. Discussed obtaining nephrology records and scheduling cardiology consult. Assessment & Plan (09/25/2024 10:37 AM EST): Improving this morning 136/51. I suggest no changes for now. Assessment & Plan (09/24/2024 12:36 PM EST): -C/W Coreg, nifedipine, hydralazine, imdur Assessment & Plan (04/04/2024 6:12 PM EDT): Baseline hypertension, appears to be on multiple agents prior to admission including amlodipine, carvedilol, hydralazine and lisinopril. Unclear if she is also taking isosorbide mononitrate, need to call the pharmacy in the morning. Given her ANNIE I have held lisinopril. Hold parameters on all medications. No home medications were taken today. One dose of IV hydralazine was given in the ED due to systolic blood pressure 220. Assessment & Plan (04/03/2024 9:11 PM EDT): Stable, well managed on amlodipine 5mg, lisinopril 20mg, hydralazine 25mg. Blood pressure is low normal today. Denies dizziness or lightheadedness. Reports checking at home and is closer to 120s/80s. Will continue these medications. She will go for lab work today. Assessment & Plan (05/09/2023 11:54 AM EDT): Belkys Florian has hypertension and she is taking the above medication as directed without any side effects. her blood pressure is within normal limits and stable. she will follow up as directed. Assessment & Plan (11/03/2022 1:11 PM EDT): Stable Assessment & Plan (09/28/2022 1:24 PM EST): Blood pressure is well controlled. Continue current regimen Assessment & Plan (09/20/2021 2:17 PM EST): stable Assessment & Plan (06/17/2021 5:53 PM EDT): Decrease lisinopril to 10 mg & start amlodipine 5 mg Assessment & Plan (09/30/2020 10:18 AM EST): stable Assessment & Plan (06/08/2020 2:08 PM EDT): Continue lisinopril Assessment & Plan (10/22/2018 4:05 PM EST): Blood pressure today is normal. Continue current meds. Assessment & Plan (09/05/2018 5:33 PM EST): Blood pressure remains elevated --Started on amlodipine 5 mg and will continue hydralazine every 4 hours as needed. Metoprolol 25 mg twice daily --Have asked nursing to assess frequently for pain control --Likely will need additional up titration of amlodipine and/or additional agent to optimize control --She was recently taken off of lisinopril/HCTZ because of AK I Assessment & Plan (05/29/2018 8:51 PM EDT): BP uncontrolled but she has been off meds. She is to restart her medications Assessment & Plan (11/02/2017 2:35 PM EDT): We will continue to monitor blood pressure. HR currently in the 70s. - Hold RONNY inhibitor and diuretic secondary to her dehydration, acute renal failure, and hyperkalemia. Restart when appropriate.. Assessment & Plan (08/25/2017 2:56 PM EST): Belkys Florian has hypertension and they are taking the above medication as directed without any side effects. Their blood pressure is within normal limits and stable. she will follow up as directed. Hyperlipidemia 07/18/2017 Assessment & Plan (04/03/2024 9:14 PM EDT): Managed on atorvastatin 40mg and aspirin 81mg. She will go for fasting lab work. Assessment & Plan (05/09/2023 12:02 PM EDT): Belkys Florian has hypercholesterolemia. I refilled her medication today-to be taken as directed. She is due to follow-up with a new PCP in 3 months for Medicare wellness and she is also due for lab work at that time. Assessment & Plan (06/17/2021 5:52 PM EDT): continue statin Assessment & Plan (06/08/2020 2:10 PM EDT): Continue lipitor Assessment & Plan (09/04/2018 9:43 PM EST): Not currently taking any medication. She should resume statin on discharge, we will check a lipid panel. Assessment & Plan (11/02/2017 2:33 PM EDT): Continue with simvastatin as prescribed Mild neurocognitive disorder 07/18/2017 Overview (09/01/2021): memory deficits- relies on adult kids for IADLs Assessment & Plan (09/01/2021 1:16 PM EST): I do not believe she is capable of learning [place] or learning to read at this point because of her memory problems, so I still agree that she should be allowed medical waiver from that component of immigration testing. We did her immigration paperwork together, w her son, Deandre aranda. Assessment & Plan (08/01/2018 9:01 PM EST): She has mild memory deficits. She is somewhat dependent on her kids for helping her manage her medications. She is also not literate Assessment & Plan (08/23/2017 1:39 PM EST): She needs to have a new exam and paperwork filled out by an M.D. for her immigration application Type 2 diabetes mellitus with proteinuria 2016 Peripheral arterial disease 07/18/2017 Overview (05/27/2020): S/p Left BKA 02/2020 for non healing wound & gangrene Dr Puentes [facility] Assessment & Plan (11/03/2022 1:12 PM EDT): I recommend she undergo revascularization of the right lower extremity. She says she understands the risk of not doing so and she does not plan to have any more surgeries. She says she feels her life is in God's hands and she plans to with her right leg. Assessment & Plan (09/28/2022 1:25 PM EST): She says she is up-to-date with appointments with her vascular specialist and will be getting a new prosthetic since the current one is ill sitting, is rubbing and causing callus In the meantime I asked her to apply some moleskin over the callus area Assessment & Plan (09/30/2020 10:19 AM EST): S/p left BKA. Her blood sugar is uncontrolled. She is following w vascular doctor outside of [facility] Assessment & Plan (05/29/2018 8:51 PM EDT): No current wounds. Continue daily baby aspirin Assessment & Plan (07/18/2017 3:26 PM EST): She has not been taking her asa & I asked her to restart it. Referred to Dr. Cole. Resolved Problems Problem Noted Date Diagnosed Date Resolved Date Acute combined systolic and diastolic congestive heart failure 05/16/2025 05/27/2025 Assessment & Plan (05/27/2025 8:42 AM EDT): Low EF CAD work up as per cards, Assessment & Plan (05/26/2025 11:17 AM EDT): Patient with known history of diastolic (preserved EF) CHF Presented with dyspnea orthopnea and increased abdominal girth and hypoxia after not taking her heart failure medications, required 4 L of O2 acute hypoxic respiratory failure. New Echo-showed decrease in ejection fraction 30 to 35% with moderate global hypokinesis grade 2 diastolic dysfunction right ventricle mildly dilated She had improvement in abdominal distention and her weight (somewhat limited as a bed scale weight) did improve, her weights are now back up from last week. -currently nephrology recommends hold off on empagliflozin for now until renal function stabilizes -continue her home dose of carvedilol hydralazine Imdur, aspirin, Plavix, nifedipine. Her amlodipine has been held due to also being on nifedipine, BP has been stable. Cardiology ordered a pharmacologic nuclear stress test 05/22 to evaluate for the etiology of the drop of her EF. This shows no evidence of a scar. There is a small area of mild perfusion at the apex at stress that normalizes with rest. The EF is 40%. Dr. Schulz who will organize catheterization as an outpatient when her renal function improves. Assessment & Plan (05/26/2025 10:37 AM EDT): Low EF CAD work up as per cards, Assessment & Plan (05/25/2025 3:57 PM EDT): Patient with known history of diastolic (preserved EF) CHF Presented with dyspnea orthopnea and increased abdominal girth and hypoxia after not taking her heart failure medications, required 4 L of O2 acute hypoxic respiratory failure. New Echo-showed decrease in ejection fraction 30 to 35% with moderate global hypokinesis grade 2 diastolic dysfunction right ventricle mildly dilated She had improvement in abdominal distention and her weight (somewhat limited as a bed scale weight) did improve, her weights are now back up to last week. -currently nephrology recommends hold off on empagliflozin for now until renal function stabilizes -continue her home dose of amlodipine carvedilol hydralazine Imdur, aspirin, Plavix, nifedipine. Our pharmacist recommended figuring out if/why she is on both amlodipine and nifedipine. Her amlodipine has been held. Cardiology ordered a pharmacologic nuclear stress test on the second to evaluate for the etiology of the drop of her EF. This shows no evidence of a scar. There is a small area of mild perfusion at the apex at stress that normalizes with rest. The EF is 40%. Dr. Schulz who will organize catheterization as an outpatient when her renal function improves. Assessment & Plan (05/25/2025 10:27 AM EDT): Low EF CAD work up as per cards, Assessment & Plan (05/24/2025 4:40 PM EDT): Patient with known history of diastolic (preserved EF) CHF Presented with dyspnea orthopnea and increased abdominal girth and hypoxia after not taking her heart failure medications, required 4 L of O2 acute hypoxic respiratory failure. New Echo-showed decrease in ejection fraction 30 to 35% with moderate global hypokinesis grade 2 diastolic dysfunction right ventricle mildly dilated She had improvement in abdominal distention and her weight (somewhat limited as a bed scale weight) did improve On 05/19 the drip was stopped and she was transition to oral Bumex but on 05/20 her creatinine had bumped. Her creatinine finally appears to be going in the right direction though her sodium is still going down. It is a bit confusing. Before today will continue to hold the diuretics and not give any further IV fluids and see if things can equilibrate. Full labs again tomorrow morning. Appreciate renal following. -currently nephrology recommends hold off on empagliflozin for now until renal function stabilizes -continue her home dose of amlodipine carvedilol hydralazine Imdur, aspirin, Plavix, nifedipine. Our pharmacist recommended figuring out if/why she is on both amlodipine and nifedipine. Her amlodipine has been held. Cardiology ordered a pharmacologic nuclear stress test on the second to evaluate for the etiology of the drop of her EF. This shows no evidence of a scar. There is a small area of mild perfusion at the apex at stress that normalizes with rest. The EF is 40%. Dr. Schulz who will organize catheterization as an outpatient when her renal function improves. Assessment & Plan (05/23/2025 1:01 PM EDT): Patient with known history of diastolic (preserved EF) CHF Presented with dyspnea orthopnea and increased abdominal girth and hypoxia after not taking her heart failure medications, required 4 L of O2 acute hypoxic respiratory failure. New Echo-showed decrease in ejection fraction 30 to 35% with moderate global hypokinesis grade 2 diastolic dysfunction right ventricle mildly dilated Her son is impressed with the improvement in her breathing and abdominal girth since admission. She had improvement in abdominal distention and her weight (somewhat limited as a bed scale weight) did improve On 05/19 the drip was stopped and she was transition to oral Bumex but on 05/20 her creatinine had bumped. Her creatinine bumped again with further lowering of her sodium and chloride with reinstitution of IV Bumex. At this point we will with her symptoms improving, her x-ray improving we will hold further diuretics in the short-term. With the creatinine still mildly rising we will give her some fluid back today and repeat the BMP and osmolarity studies tomorrow morning. -currently nephrology recommends hold off on empagliflozin for now until renal function stabilizes -continue her home dose of amlodipine carvedilol hydralazine Imdur, aspirin, Plavix, nifedipine. Our pharmacist recommended figuring out if/why she is on both amlodipine and nifedipine. Cardiology has planned a pharmacologic nuclear stress test on the second to evaluate for the etiology of the drop of her EF. This shows no evidence of a scar. There is a small area of mild perfusion at the apex at stress that normalizes with rest. The EF is 40%. Dr. Aj who will organize catheterization as an outpatient when her renal function improves Assessment & Plan (05/23/2025 11:12 AM EDT): Low EF CAD work up as per cards, Assessment & Plan (05/22/2025 11:38 AM EDT): Patient with known history of diastolic (preserved EF) CHF Presented with dyspnea orthopnea and increased abdominal girth and hypoxia after not taking her heart failure medications, required 4 L of O2 acute hypoxic respiratory failure. New Echo-showed decrease in ejection fraction 30 to 35% with moderate global hypokinesis grade 2 diastolic dysfunction right ventricle mildly dilated Her son is impressed with the improvement in her breathing and abdominal girth since admission. She had improvement in abdominal distention and her weight (somewhat limited as a bed scale weight) did improve On 05/19 the drip was stopped and she was transition to oral Bumex but on 05/20 her creatinine had bumped. Her creatinine bumped again with further lowering of her sodium and chloride with reinstitution of IV Bumex. At this point we will with her symptoms improving, her x-ray improving we will hold further diuretics in the short-term -currently nephrology recommends hold off on empagliflozin for now until renal function stabilizes -continue her home dose of amlodipine carvedilol hydralazine Imdur, aspirin, Plavix, nifedipine. Our pharmacist recommended figuring out if/why she is on both amlodipine and nifedipine. Cardiology has planned a pharmacologic nuclear stress test on the second to evaluate for the etiology of the drop of her EF. This is in process right now Assessment & Plan (05/22/2025 8:10 AM EDT): Low EF CAD work up as per cards, Assessment & Plan (05/21/2025 2:27 PM EDT): Patient with known history of diastolic (preserved EF) CHF Presented with dyspnea orthopnea and increased abdominal girth and hypoxia after not taking her heart failure medications required 4 L of O2 acute hypoxic respiratory failure New Echo-showed decrease in ejection fraction 30 to 35% with moderate global hypokinesis grade 2 diastolic dysfunction right ventricle mildly dilated Her son is impressed with the improvement in her breathing and abdominal girth since admission. She had improvement in abdominal distention and her weight (somewhat limited as a bed scale weight) did improve On 05/19 the drip was stopped and she was transition to oral Bumex but on 05/20 her creatinine had bumped. At this point with her sodium falling nephrology is recommending returning to 2 mg twice daily of Bumex and following closely -currently nephrology recommends hold off on empagliflozin for now until renal function stabilizes -continue her home dose of amlodipine carvedilol hydralazine Imdur, aspirin, Plavix, nifedipine. Our pharmacist recommended figuring out if/why she is on both amlodipine and nifedipine. Cardiology has planned a pharmacologic nuclear stress test on the second to evaluate for the etiology of the drop of her EF Assessment & Plan (05/21/2025 10:28 AM EDT): Low EF CAD work up as oer cards, Assessment & Plan (05/20/2025 6:58 PM EDT): Patient with known history of diastolic (preserved EF) CHF Presented with dyspnea orthopnea and increased abdominal girth and hypoxia after not taking her heart failure medications required 4 L of O2 acute hypoxic respiratory failure New Echo-showed decrease in ejection fraction 30 to 35% with moderate global hypokinesis grade 2 diastolic dysfunction right ventricle mildly dilated She was initially diuresed with intermittent Bumex then switched to a Bumex drip as per Dr. Jones She had improvement in abdominal distention and her weight (somewhat limited as a bed scale weight) did improve On 05/19 the drip was stopped and she was transition to oral Bumex but on 05/20 her creatinine had bumped Diuretic was held after her morning dose and she received a 500 mL fluid bolus Continue to hold diuretic and reassess renal function on 05/21 Oxygen requirement has improved - she has weaned off oxygen - Per report her previous cardiac regimen was carvedilol, Jardiance, Imdur and Bumex 1 mg twice daily -currently nephrology recommends hold off on empagliflozin for now until renal function stabilizes -continue her home dose of amlodipine carvedilol hydralazine Imdur, aspirin, Plavix, nifedipine -05/20 will ask cardiology to revisit her case as she does have a new decreased ejection fraction and anticipate they will want to arrange or at least discuss outpatient testing for this Assessment & Plan (05/20/2025 9:39 AM EDT): Continue with current program suggest to increase if vasodilator therapy will defer to cardiology. Assessment & Plan (05/19/2025 5:11 PM EDT): Patient with known history of diastolic (preserved EF) CHF, last echo in September Moderate LV concentric hypertrophy EF is estimated at 55% Diastolic function indeterminate Right atrium is mildly dilated Mild mitral valve regurgitation Mild to moderate tricuspid valve regurgitation Presented with dyspnea orthopnea and increased abdominal girth and hypoxia after not taking her heart failure medications required 4 L of O2 acute hypoxic respiratory failure Chest x-ray shows small pleural effusions and pulmonary edema, LFTs/transaminases are mildly elevated, creatinine elevated, potassium 5, proBNP 9598, higher than previous Echo-showed decrease in ejection fraction 30 to 35% with moderate global hypokinesis grade 2 diastolic dysfunction right ventricle mildly dilated Plan Oxygen requirement has improved - Per report her previous cardiac regimen was carvedilol, Jardiance, Imdur and Bumex 1 mg twice daily -Seen by nephrology s/p 2 days bumex drip, weight is down, transitioned to oral diuretic -He recommends hold off on empagliflozin for now until renal function stabilizes -Seen by Dr. Purcell cardiology who is in agreement with IV diuresis with Bumex drip - Recommend to continue her home dose of amlodipine carvedilol hydralazine Imdur, aspirin, Plavix, nifedipine - may be ready for discharge tomorrow back on cardiac medication regimen Assessment & Plan (05/19/2025 9:00 AM EDT): Continue with current program suggest to increase if vasodilator therapy will defer to cardiology. Assessment & Plan (05/18/2025 4:47 PM EDT): Patient with known history of diastolic (preserved EF) CHF, last echo in September Moderate LV concentric hypertrophy EF is estimated at 55% Diastolic function indeterminate Right atrium is mildly dilated Mild mitral valve regurgitation Mild to moderate tricuspid valve regurgitation Presented with dyspnea orthopnea and increased abdominal girth and hypoxia after not taking her heart failure medications required 4 L of O2 acute hypoxic respiratory failure Chest x-ray shows small pleural effusions and pulmonary edema, LFTs/transaminases are mildly elevated, creatinine elevated, potassium 5, proBNP 9598, higher than previous Plan diurese standing scale weights if possible Continue patient education, she does not like side effects from multiple medications front desk monitor Echo-showed decrease in ejection fraction 30 to 35% with moderate global hypokinesis grade 2 diastolic dysfunction right ventricle mildly dilated - Per report her previous cardiac regimen was carvedilol, Jardiance, Imdur and Bumex 1 mg twice daily -Seen by nephrology Dr. Jones who recommends Bumex 4 mg IV push followed by 1 mg/h drip -He recommends hold off on empagliflozin for now until renal function stabilizes -Seen by Dr. Purcell cardiology who is in agreement with IV diuresis with Bumex drip - Recommend to continue her home dose of amlodipine carvedilol hydralazine Imdur, aspirin, Plavix, nifedipine - resumed calcium channel blockers - cont diuresis, close monitoring of renal function Assessment & Plan (05/18/2025 8:13 AM EDT): Continue with current program suggest to increase if vasodilator therapy will defer to cardiology. Assessment & Plan (05/17/2025 2:36 PM EDT): Patient with known history of diastolic (preserved EF) CHF, last echo in September Moderate LV concentric hypertrophy EF is estimated at 55% Diastolic function indeterminate Right atrium is mildly dilated Mild mitral valve regurgitation Mild to moderate tricuspid valve regurgitation Presented with dyspnea orthopnea and increased abdominal girth and hypoxia after not taking her heart failure medications required 4 L of O2 acute hypoxic respiratory failure Chest x-ray shows small pleural effusions and pulmonary edema, LFTs/transaminases are mildly elevated, creatinine elevated, potassium 5, proBNP 9598, higher than previous Plan diurese standing scale weights if possible Continue patient education, she does not like side effects from multiple medications front desk monitor Echo-showed decrease in ejection fraction 30 to 35% with moderate global hypokinesis grade 2 diastolic dysfunction right ventricle mildly dilated - Per report her previous cardiac regimen was carvedilol, Jardiance, Imdur and Bumex 1 mg twice daily -Seen by nephrology Dr. Jones who recommends Bumex 4 mg IV push followed by 1 mg/h drip -He recommends hold off on empagliflozin for now until renal function stabilizes -Seen by Dr. Purcell cardiology who is in agreement with IV diuresis with Bumex drip - Recommend to continue her home dose of amlodipine carvedilol hydralazine Imdur, aspirin, Plavix, nifedipine -05/17 hospitalist held amlodipine and nifedipine for now to make sure she has enough blood pressure for diuresis can resume if tolerating Assessment & Plan (05/16/2025 6:00 PM EDT): Patient with known history of CHF, last echo in September Moderate LV concentric hypertrophy EF is estimated at 55% Diastolic function indeterminate Right atrium is mildly dilated Mild mitral valve regurgitation Mild to moderate tricuspid valve regurgitation Presents today with dyspnea orthopnea and increased abdominal girth and hypoxia after not taking her heart failure medications required 4 L of O2 Chest x-ray shows small pleural effusions and pulmonary edema, LFTs/transaminases are mildly elevated, creatinine elevated, potassium 5, proBNP 9598, higher than previous Plan diurese Consult cardiology Continue patient education, she does not like side effects from multiple medications front desk monitor Echo Follow BMP closely It looks like the last time she picked up her meds was in October and November, is supposed to be on Coreg, Jardiance, Imdur, will attempt to slowly restart these also supposed to be on Bumex 1 mg twice daily Monitor potassium very closely, borderline elevated at 5 Hyponatremia 09/22/2024 05/27/2025 Assessment & Plan (05/27/2025 8:42 AM EDT): sNa stable 123-127 likely secondary to decreased gfr leading to impaired free water clearance-continue with oral torsemide as is. Assessment & Plan (05/26/2025 11:17 AM EDT): Likely on the basis of acute heart failure. Decreased GFR with impaired water clearance. - Her chest x-ray today does still show some possible vascular congestion. - Continue oral torsemide Assessment & Plan (05/26/2025 10:37 AM EDT): sNa stable 123-127 likely secondary to decreased gfr leading to impaired free water clearance-continue with oral torsemide as is. Assessment & Plan (05/25/2025 3:57 PM EDT): Likely on the basis of acute heart failure. At this point nephrology is recommending that we reinitiate some diuretics. Her chest x-ray today does still show some possible vascular congestion. If her sodium does not improve she may need 3% saline in addition. She is also started on a fluid restriction Assessment & Plan (05/25/2025 10:27 AM EDT): sNa stable likely secondary to decreased gfr leading to impaired free water clearance- will reinitiate oral loop diuretic therapy and follow with 3% held in reserve if symptoms develop- fluid restriction initiated Assessment & Plan (05/24/2025 4:40 PM EDT): Likely on the basis of acute heart failure. Now there may be some volume depletion as well. Assessment & Plan (05/24/2025 11:39 AM EDT): Unfortunately serum sodium has worsened in response to IVF- have discontinued - will await next sodium level and if worse will consider additional therapy to assist with free water clearance Assessment & Plan (05/23/2025 1:01 PM EDT): Likely on the basis of acute heart failure. Now there may be some volume depletion as well Assessment & Plan (05/23/2025 11:12 AM EDT): Unclear urine output at this point known to have cardiomyopathy and decreased GFR likely both contributors to perfusion dependent mechanisms of ADH release contributing inability to excrete water associated with decreased GFR - Suggest to hold diuretic today, suggest a gentle IVF (isotonic NS 75 ml/h) max 1L and reassess - Reassess urine sodium/urine osmolality Assessment & Plan (05/22/2025 11:38 AM EDT): Likely on the basis of acute heart failure. Now there may be some volume depletion as well Assessment & Plan (05/22/2025 8:10 AM EDT): Unclear urine output at this point known to have cardiomyopathy and decreased GFR likely both contributors to perfusion dependent mechanisms of ADH release contributing inability to excrete water associated with decreased GFR - Suggest to hold diuretic today - Reassess urine sodium/urine osmolality Assessment & Plan (05/21/2025 2:27 PM EDT): Likely on the basis of acute heart failure. Follow closely as we are adjusting the diuretics Assessment & Plan (05/21/2025 10:28 AM EDT): Expected to improve while on IV diuresis, holding at 130-132 -fluid restriction 1200 ml daily Assessment & Plan (05/20/2025 6:58 PM EDT): Likely on the basis of acute heart failure 05/20 sodium decreased now may be due to some hypovolemia reassess tomorrow Assessment & Plan (05/20/2025 9:39 AM EDT): Expected to improve while on IV diuresis, holding at 130-132 Assessment & Plan (05/19/2025 5:11 PM EDT): Likely on the basis of acute heart failure Modest improvement with diuresis Assessment & Plan (05/19/2025 9:00 AM EDT): Expected to improve while on IV diuresis, holding at 130-132 Assessment & Plan (05/18/2025 4:47 PM EDT): Likely on the basis of acute heart failure Cont monitoring Assessment & Plan (05/18/2025 8:13 AM EDT): Expected to improve while on IV diuresis Assessment & Plan (05/17/2025 2:36 PM EDT): Likely on the basis of acute heart failure Modest improvement thus far with diuresis Assessment & Plan (05/16/2025 6:00 PM EDT): Likely on the basis of acute heart failure Will diurese and monitor closely check urine and serum osmolalities, urine sodium Assessment & Plan (09/24/2024 12:36 PM EST): Resolved with diuresis Assessment & Plan (09/23/2024 4:02 PM EST): Mild, slowly resolved over the last 36 hours post diuresis. Last sodium was 133 increased from 129 when she arrived in the emergency department. Assessment & Plan (09/22/2024 4:23 PM EST): Hyponatremia likely due to volume overload from ESRD. On exam, she does appear volume overloaded with possible increase in abdominal girth lower extremity edema and has symptoms of orthopnea Plan - Serum osmolality, urine osmolality and urine sodium - Diurese aggressively furosemide 80 mg IV twice daily -BMP every 4-6 hours for now hours to avoid rapid overcorrection Acute kidney failure 04/04/2024 025 Assessment & Plan (09/23/2024 4:02 PM EST): Nephrology consultation appreciated as above, decreasing diuretics, increasing antihypertensives as noted above. Assessment & Plan (09/22/2024 4:23 PM EST): Chronic issue with an acute component. 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 Patient has a baseline Cr of 1.7 mg/dL as of Mar 2024. Patient has a Cr clearance of 31 and eGFR of 26. Patient declines dialysis which apparently has been discussed in the past with her air quality technician, details unknown. Staging of the later stages of CKD are as follows: G3b ? GFR 30 to 44 mL/min per m2 1.73, G4GFR 15 to 29 mL/min per 1.73 m2, G5 ? GFR <15 mL/min per 1.73 m2. Patient complaining of abdominal pain and distension today which may be related to constipation but we will rule out urine retention. Plan -Treating volume overload as above - POCT UA wnl - Consider abdominal ultrasound - Consult nephrology, patient states that if she needed dialysis she would consider it and was quite sure that she would want to be a full code Assessment & Plan (04/04/2024 12:44 PM EDT): Belkys presents with her son-her son is interpreting for her. Her renal function from yesterday shows acute kidney failure-doubled creatinine-GFR is 20. She sees Dr. Bill-air quality technician in [place]. I called the phone number to talk with him but there was no answer-I left a voicemail. She was very adamant at the start of this visit that she did not want to go to the emergency room as she does not want to be admitted. I called her air quality technician office as she notes that she would be persuaded if he also recommended this. I had a long discussion with her son and herself regarding the need for hospitalization. In the end she was agreeable to go to the emergency room. She also has a open wound of the right lower foot-please see plan osteomyelitis of the right foot. Dental infection 11/18/2021 04/27/2022 Assessment & Plan (11/18/2021 2:55 PM EDT): She has a very serious dental infection and is high risk for complications. I advised her to go to ER for imaging & IV antibiotics. She says she will go, but tomorrow. I explained risk of jaw infection, sepsis etc. Her son offered to drive her now, but pt refuses. She was sent clindamycin to take tonight if she will not go to ER. Relayed risk of C. Diff to her daughter. I gave them [facility] phone number. I think it would be best for her to get on that plan & get a correctional case manager. I talked to son & afterwards to daughter on phone about urgent need to find her a dentist. Constipation 09/30/2020 05/27/2025 Assessment & Plan (05/26/2025 11:17 AM EDT): Present on admission, no resolved. Assessment & Plan (05/25/2025 3:57 PM EDT): She has moved her bowels. Assessment & Plan (05/24/2025 4:40 PM EDT): She has moved her bowels. Assessment & Plan (05/23/2025 1:01 PM EDT): Still no documented stool she has been on increasing bowel regimen would consider suppository Assessment & Plan (05/22/2025 11:38 AM EDT): Still no documented stool she has been on increasing bowel regimen would consider suppository Assessment & Plan (05/21/2025 2:27 PM EDT): Still no documented stool she has been on increasing bowel regimen would consider suppository Assessment & Plan (05/20/2025 6:58 PM EDT): Still no documented stool she has been on increasing bowel regimen would consider suppository Assessment & Plan (09/24/2024 12:36 PM EST): Patient denied abdominal pain. Normal bowel sounds on auscultation. -Continue Colace twice daily, MiraLAX Assessment & Plan (09/23/2024 4:02 PM EST): Patient denied abdominal pain. Normal bowel sounds on auscultation. Continue bowel protocol Assessment & Plan (09/22/2024 4:23 PM EST): Patient reports abd discomfort and constipation. PE abdomen distended, but non tender to palpation. Plan - Senna 8.6 mg PRN - Docusate - liquid 50 mg PRN Assessment & Plan (09/30/2020 10:20 AM EST): Q/o diabetic gastroparesis. Increase fluids & fibers. Improve glycemic control. Referred to Gi for colonoscopy & consideration of EGD. Colace sent. Use miralax if no BM in 3 days Infection of toe 02/14/2020 05/24/2020 Assessment & Plan (02/14/2020 4:25 PM EDT): Belkys presents with a diabetic left great toe infection that has been going on for the past 2 weeks. This is a concerning toe and that the distal aspect has darkened and I need her to be assessed by wound care as soon as possible. I put a referral into wound care and I discussed with my nurse to call over to the [facility] to get her established as soon as possible. I started her on 2 antibiotics as there is an obvious infection present with 1 to cover Pseudomonas that she is a diabetic. I advised for warm Epson salt soaks twice a day and to call if things get worse. If things do get worse I will advise her to go to the hospital for an evaluation over the weekend. The toe was wrapped today in the office. I also wrote a note for her employer to be out for the next week secondary to this infection. Her daughter and eBlkys both understand and agree with this plan. Hair loss 09/04/2018 06/17/2021 Assessment & Plan (09/04/2018 6:52 PM EST): Looks androgenic. This was not a priority during her visit today. We will readdress in the future. Diabetic hyperosmolar non-ketotic state 11/02/2017 08/01/2018 Assessment & Plan (11/02/2017 4:17 PM EDT): Admit the patient for IV fluids, and subsequent glycemic control with insulin. - Diabetic diet - Antinausea medication - Monitor electrolytes closely Her potassium is mildly elevated at this time, related to acute renal insufficiency and dehydration. IV fluids and insulin given after most recent labs this afternoon. Last potassium 5.4. Sodium 131, with glucose 439, corrected sodium calculated and stable. 16 U insulin given after most recent labs. Abnormal LFTs 11/02/2017 05/27/2025 Assessment & Plan (05/26/2025 11:17 AM EDT): AST 38 ALT 70 alkaline phosphatase normal 107 bili normal 0.3 at presentation, all normalized during hospitalization. Pt denies abd pain, nausea, tolerating PO diet. Assessment & Plan (05/25/2025 3:57 PM EDT): AST 38 ALT 70 alkaline phosphatase normal 107 bili normal 0.3 at presentation improved Assessment & Plan (05/24/2025 4:40 PM EDT): AST 38 ALT 70 alkaline phosphatase normal 107 bili normal 0.3 at presentation improved Assessment & Plan (05/23/2025 1:01 PM EDT): AST 38 ALT 70 alkaline phosphatase normal 107 bili normal 0.3 at presentation improved Assessment & Plan (05/22/2025 11:38 AM EDT): AST 38 ALT 70 alkaline phosphatase normal 107 bili normal 0.3 at presentation improved Assessment & Plan (05/21/2025 2:27 PM EDT): AST 38 ALT 70 alkaline phosphatase normal 107 bili normal 0.3 at presentation improved Assessment & Plan (05/20/2025 6:58 PM EDT): AST 38 ALT 70 alkaline phosphatase normal 107 bili normal 0.3 at presentation improved Assessment & Plan (05/19/2025 5:11 PM EDT): AST 38 ALT 70 alkaline phosphatase normal 107 bili normal 0.3 at presentation improved Assessment & Plan (05/18/2025 4:47 PM EDT): AST 38 ALT 70 alkaline phosphatase normal 107 bili normal 0.3 at presentation -She had had some improvement with diuresis Assessment & Plan (05/17/2025 2:36 PM EDT): AST 38 ALT 70 alkaline phosphatase normal 107 bili normal 0.3 at presentation -She had had some improvement with diuresis Assessment & Plan (05/16/2025 6:00 PM EDT): Likely on the basis of acute volume overload No abdominal pain Will recheck a.m. Assessment & Plan (09/24/2024 12:36 PM EST): Likely secondary to passive congestion in the setting of volume overload. -Infectious hepatitis panel negative -Ultrasound is unremarkable Assessment & Plan (09/23/2024 4:02 PM EST): Likely secondary to passive congestion in the setting of volume overload infectious hepatitis panel negative, ultrasound pending, LFTs improved continue to follow. Today LFTs AST - 32, ALT 44, Alk phos 120, total bilirubin <0.2. Assessment & Plan (09/22/2024 4:23 PM EST): Hepatic congestion can occur due to an increase in central venous pressure. Abnormal LFTs are a result of this patients volume overload from ESRD. Patient has had some vague abdominal complaints, does suffer from constipation which we will treat, no right upper quadrant pain Alk phos 132 Total bilirubin < 0.2 Direct Bilirubin < 0.2 Bilirubin indirect not calculated AST- 55 ALT - 54 Total protein - 7.9 Albumin 3.2 Plan - Redraw LFTs - continue dieresis -Liver ultrasound -Infectious hepatitis panel Assessment & Plan (11/02/2017 2:35 PM EDT): This may be related to her recent abdominal pain with vomiting. - Initial examination, no right upper quadrant tenderness nor does she have elevated liver function test. - Repeat lipase improved from 174-89. ALT also initially elevated 114, then improved to 85. Not checked on AM. labs. We'll continue to follow in a.m. Dysuria 11/02/2017 05/24/2020 Assessment & Plan (11/02/2017 4:18 PM EDT): As above. - IV fluids - Antibiotics initiated - Continue to monitor symptoms. 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 I informed her to use refresh eye drops for this. Encounter for completion of form with patient 08/25/19 18 08/28/2017 Assessment & Plan (08/25/2017 3:07 PM EST): Belkys presents with an interpretor today in the office. I filled out her [place] Citizenship and immigration services to the best of my abilities and her PCP will complete the form. This form will then be scanned and then faxed out. Cognitive impairment 07/18/2017 018 Overview (08/01/2018): mild Assessment & Plan (11/07/2017 1:32 PM EDT): Needs more assistance with medication Assessment & Plan (10/18/2017 8:43 PM EST): discussed her immigration forms again, she was given a medical waiver from certain aspects of the exam because of her mild cognitive impairments. Her medical form was completed appropriately. I had the physician ophthalmologist re-sign and their copy today. Hyperglycemia 08/01/2018 Acute kidney injury 05/24/20 20 Assessment & Plan (08/01/2018 9:13 PM EST): Labs received after her visit. Nurses instructed to call patient and have her hold lisinopril/HCTZ, use insulin and increase water intake. metformin was stopped today. She will recheck labs in 2 days. 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 Author Adhere to prescribed treatment plan Care Plan Chronic Condition Self-Management No Jazmyn Anderson, JULY Note: Barriers: No identified barriers Manage and adhere to medication treatment plan Care Plan Medication Management No Jazmyn Anderson, RN Note: Barriers: No identified barriers Interventions Care Plan Interventions Intervention Entry Date Outcome Patient will take medications as prescribed 06/25/2018 [facility] will request PT-1 transportation for patient to [facility] 06/25/2018 Luis[facility] will schedule [facility] appointment for patient 06/25/2018 Note:Luisito confirms she has the contact information for [facility]. Related Goals and Interventions Goal Associated Intervent ions Adhere to prescribed treatment plan [facility] will request PT-1 transportation for patient to [facility]; Luis[facility] will schedule [facility] appointment for patient Manage and adhere to medicat ion treatment plan Patient will take medications as prescri bed
--- OUTSIDE RECORDS SUMMARY | 2025-06-03 17:56 | XMS_ITS | Clinical Summary ---
Author Organization [facility] Address [address] [place] [address] Care Team Providers Care Experimental Display Builder Name Role Phone ManiUna SAURABH Primary Care Provider [phone] Allergies Active Allergy Reactions Criticality Noted Date [...] (Females,Ages 65 and older) 12/03/2015 Influenza Vaccine 03/21/2025 06/08/2020, , 07/18/2017, Additional history exists COVID-19 Vaccine ( season) 2025 Hemoglobin A1C Discontinued 06/11/2021, 09/21, 06/08/2020, Additional history exists Hepatitis B Vaccines Aged Out No long er eligible based on patient's age to complete this topic Insurance MEDICARE PART A & B [facility] Care Teams Experimental Display Builder Relationship Specialty Start Date End Date Una Singleton NP [address] [facility] [address] [place] [address] PCP - General Adult Health - PA/APNP/GUARD MANAGER/CLAM PICKER 11/18/21
--- OUTSIDE RECORDS SUMMARY | 2025-06-03 17:56 | XMS_ITS | Encounter Summary ---
Author Organization [facility] Address [address] [facility] [address] [place] [address] Phone Care Team Providers Care Ticker Installer Name Role Phone Elfego Una Aiken MIDDLE SCHOOL ASSISTANT PRINCIPAL Primary Care Provider [phone] Afua Leblanc MIDDLE SCHOOL ASSISTANT PRINCIPAL Primary Care Provider Cayden Al MD Unavailable Marina Curry Unavailable karlo Encounter Details Date Type Department Care Team (Late st Contact Info) Description 06/29/2021 Telephone [facility] [address] [place] [address] Destinee Shirley NP [address] [place] [phone] [email or web address] Social History Tobacco Use Types Packs/Day Years Used Date Smoking Tobacco: Never Smokeless Tobacco: Never Alcohol Use Standard Drinks/Week Comments Yes 0 (1 standard drink = 0.6 oz pur e alcohol) rarely Comments Unknown Sex and Gender Information Value Date Recorded Sex Assigned at Female 09/04/2018 5:38 PM EST Legal Sex Female 10:01 PM EDT Gender Identity Female 09/04/2018 5:38 PM EST Sexual Orientation Straight 09/04/2018 5: 38 PM EST documented as of this encounter Plan of Treatment Upcoming Encounters Date Type Department Care Team (Late st Contact Info) Description 06/04/2025 12:30 AM EDT Home Care Visit [facility] [address] [place] [phone] Natalie Watts [address] [place] [address] 06/06/2025 3:00 AM EDT Home Care Visit [facility] [address] [place] [phone] Cee Peters RN [address] [place] [address] 06/09/2025 1:30 AM EDT [facility] [address] [place] [phone] Cee Peters RN [address] [place] [address] 06/11/2025 12:30 AM EDT [facility] [address] [place] [phone] Cee Peters RN [address] [place] [address] 06/13/2025 1:30 AM EDT Home Care Visit [facility] [address] [place] [phone] Cee Peters RN [address] [place] [address] 06/13/2025 3:00 PM EDT Office Visit [facility] [address] [facility] [address] [place] [address] Sumaya Tompkins, [address] [address] 06/16/2025 12:30 AM EDT Home Care Visit [facility] [address] [place] [phone] Cee Peters RN [address] [place] [address] 06/18/2025 12:30 AM EDT Home Care Visit [facility] [address] [place] [phone] Cee Peters RN [address] [place] [address] 06/20/2025 1:00 AM EDT Home Care Visit [facility] [address] [place] [phone] Cee Peters RN [address] [place] [address] 06/23/2025 12:30 AM EST Home Care Visit [facility] [address] [place] [phone] Cee Peters RN [address] [place] [address] 06/25/2025 12:30 AM EST Home Care Visit [facility] [address] [place] [phone] Cee Peters RN [address] [place] [address] 06/27/2025 1:00 AM EST Home Care Visit [facility] [address] [place] [phone] Cee Peters RN [address] [place] [address] 06/30/2025 12:30 AM EST Home Care Visit [facility] [address] [place] [phone] Cee Peters RN [address] [place] [address] 07/02/2025 12:30 AM EST Home Care Visit [facility] [address] [place] [phone] Cee Peters RN [address] [place] [address] 07/04/2025 1:00 AM EST Home Care Visit [facility] [address] [place] [phone] Cee Peters RN [address] [place] [address] 07/07/2025 12:30 AM EST Home Care Visit [facility] [address] [place] [phone] Cee Peters RN [address] [place] [address] 07/09/2025 12:30 AM EST Home Care Visit [facility] [address] [place] [phone] Cee Peters RN [address] [place] [address] 07/11/2025 1:00 AM EST Home Care Visit [facility] [address] [place] [phone] Cee Peters RN [address] [place] [address] 07/14/2025 12:30 AM EST Home Care Visit [facility] [address] [place] [phone] Cee Peters RN [address] [place] [address] 07/16/2025 12:30 AM EST Home Care Visit [facility] [address] [place] [phone] Cee Peters RN [address] [place] [address] 07/18/2025 1:00 AM EST Home Care Visit [facility] [address] [place] [phone] Cee Peters RN [address] [place] [address] 07/21/2025 Appointment [facility] [address] [place] [phone] Cee Peters RN [address] [place] [address] 07/23/2025 Home Care Visit [facility] [address] [place] [phone] Cee Peters RN [address] [place] [address] 07/25/2025 Home Care Visit [facility] [address] [place] [phone] Cee Peters RN [address] [place] [address] documented as of this encounter Goals Goal Patient Goal Type Associated Problems Recent Progress Patient-Stated? Author Adhere to prescribed treatment plan Care Plan Chronic Condition Self-Management No Jazmyn Anderson, JULY Note: Barriers: No identified barriers Manage and adhere to medication treatment plan Care Plan Medication Management No Jazmyn Anderson, RN Note: Barriers: No identified barriers documented as of this encounter Visit Diagnoses Not on filedocumented in this encounter Additional Health Concerns Active Problems Noted Date Diagnosed Date Chronic Condition Self-Management 06/25/2018 Medication Management 06/25/2018 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 CoV-Risk Comment:Per note documentation 05/16/2025 05/17/2025 12:46 PM EDT Assessment Noted Time PHQ-2 Depression Total Score: 0 06/25/20 18 2:39 PM EST documented as of this encounter Care Teams Ticker Installer Relationship Specialty Start Date End Date Una Telles CNP [address] [place] [address], 2nd [place] [address] [email or web address] PCP - General 06/08/17 05/23/23 Afua Leblanc CNP [address] [place] [address] [address] [place] [address] PCP - General Nurse Practitioner 05/24/23 Cayden Al MD [address] [place] [address] 7 [place] [address] [email or web address] Insurance Assigned Provider 11/25/23 08/26/24 Marina Curry [address] [place] [address] [email or web address] PHCM Community Corn Picker 12/30/24 12/30/24 documented as of this encounter Additional Source Comments The information contained in this document represents components of the legal health record. It is not the complete legal health record.[facility]
--- OUTSIDE RECORDS SUMMARY | 2025-06-03 17:56 | XMS_ITS | Encounter Summary ---
Author Organization [facility] Address [address] [place] [address] Phone Care Team Providers Care Swaging Machine Adjuster Name Role Phone Una Telles FISH CONSERVATIONIST Primary Care Provider [phone] Jzamyn Anderson RN Unavailable [phone] Afua Leblanc FISH CONSERVATIONIST Primary Care Provider Cayden Al MD Unavailable Marina Curry Unavailable [email or web address] Reason for Referral * MRI/CAT Scan - Closed Specialty Diagnoses / Procedures Referred By Contac t Referred To Contact Procedures CT Chest Outside (No Interpretation) System, Provider Not In, PhD [facility] [address] [address] Referral ID Status Reason Start Date Expiration Date Visits Re quested Visits Authorized [id number] Closed 01/08/2019 01/08/2020 1 1 Encounter Details Date Type Department Care Team (Late st Contact Info) Description 01/08/2019 Ancillary Orders [facility]Outside Imaging [address] [place] [address] System, Provider Not In, PhD [facility] [employer] [address] [address] Social History Tobacco Use Types Packs/Day Years Used Date Smoking Tobacco: Never Smokeless Tobacco: Never Alcohol Use Standard Drinks/Week Comments No 0 (1 standard drink = 0.6 oz pur e alcohol) Comments Unknown Sex and Gender Information Value [...] 12:30 AM EDT Home Care Visit [facility] [address] [place] [phone] Natalie Watts [address] [place] [address] [email or web address] 06/06/2025 3:00 AM EDT Home Care Visit [facility] [address] [place] [phone] Cee Peters RN [address] [place] [address] [email or web address] 06/09/2025 1:30 AM EDT Home Care Visit [facility] [address] [place] [phone] Cee Peters RN [address] [place] [address] [email or web address] 06/11/2025 12:30 AM EDT Home Care Visit [facility] [address] [place] [phone] Cee Peters RN [address] [place] [address] [email or web address] 06/13/2025 1:30 AM EDT Home Care Visit [facility] [address] [place] [phone] Cee Peters RN [address] [place] [address] [email or web address] 06/13/2025 3:00 PM EDT Office Visit [facility] [address] Floor, [address] [place] [address] Leda, Sumaya Jonas, DNP [address] [place] [address] [email or web address] 06/16/2025 12:30 AM EDT Home Care Visit [facility] [address] [place] [phone] Cee Peters RN [address] [place] [address] [email or web address] 06/18/2025 12:30 AM EDT Home Care Visit [facility] [address] [place] [phone] Cee Peters RN [address] [place] [address] [email or web address] 06/20/2025 1:00 AM EDT Home Care Visit [facility] [address] [place] [phone] Cee Peters RN [address] [place] [address] [email or web address] 06/23/2025 12:30 AM EST Home Care Visit [facility] [address] [place] [phone] Cee Peters RN [address] [place] [address] [email or web address] 06/25/2025 12:30 AM EST Home Care Visit [facility] [address] [place] [phone] Cee Peters RN [address] [place] [address] [email or web address] 06/27/2025 1:00 AM EST Home Care Visit [facility] [address] [place] [phone] Cee Peters RN [address] [place] [address] [email or web address] 06/30/2025 12:30 AM EST Home Care Visit [facility] [address] [place] [phone] Cee Peters RN [address] [place] [address] [email or web address] 07/02/2025 12:30 AM EST Home Care Visit [facility] [address] [place] [phone] Cee Peters RN [address] [place] [address] [email or web address] 07/04/2025 1:00 AM EST Home Care Visit [facility] [address] [place] [phone] Cee Peters RN [address] [place] [address] [email or web address] 07/07/2025 12:30 AM EST Home Care Visit [facility] [address] [place] [phone] Cee Peters RN [address] [place] [address] [email or web address] 07/09/2025 12:30 AM EST Home Care Visit [facility] [address] [place] [phone] Cee Peters RN [address] [place] [address] 07/11/2025 1:00 AM EST Home Care Visit [facility] [address] [place] [phone] Cee Peters RN [address] [place] [address] 07/14/2025 12:30 AM EST Home Care Visit [facility] [address] [place] [phone] Cee Peters RN [address] [place] [address] 07/16/2025 12:30 AM EST Home Care Visit [facility] [address] [place] [phone] Cee Peters RN [address] [place] [address] 07/18/2025 1:00 AM EST Home Care Visit [facility] [address] [place] [phone] Cee Peters RN [address] [place] [address] 07/21/2025 Appointment [facility] [address] [place] [phone] Cee Peters RN [address] [place] [address] 07/23/2025 Home Care Visit [facility] [address] [place] [phone] Cee Peters RN [address] [place] [address] 07/25/2025 Home Care Visit [facility] [address] [place], [place] [phone] Cee Peters RN [address] [place] [address] documented as of this encounter Goals Goal Patient Goal Type Associated Problems Recent Progress Patient-Stated? Author Adhere to prescribed treatment plan Care Plan Chronic Condition Self-Management No Jazmyn Anderson RN Note: Barriers: No identified barriers Manage and adhere to medication treatment plan Care Plan Medication Management No Jazmyn Anderson RN Note: Barriers: No identified barriers documented as of this encounter Results * CT Chest Outside (No Interpretation) (12/21/2018 12:00 AM EDT) Narrative SYSTEMGENERATED, DOCUMENTATION - 01/08/2019 1:57 PM EDT This study is for PACS storage only and not for interpretation. us Provider Not In System PhD IMG OUTSIDE IMAGING W /OUT INTERPRETATION Final Result documented in this encounter Visit Diagnoses Not on filedocumented in this encounter Additional Health Concerns Active Problems Noted Date Diagnosed Date Chronic Condition Self-Management 06/25/2018 Medication Management 06/25/2018 Infection Onset Date Last Indicated Resolved Time CoV-Risk Comment:SNF dc 05/21 full PPE for 14 days 05/25/2020 05/25/2020 06/04/2020 1:24 AM E DT MRSA 04/03/2024 04/03/2024 CoV-Risk Comment:Per note documentation 05/16/2025 05/17/2025 12:46 PM EDT Assessment Noted Time PHQ-2 Depression Total Score: 0 06/25/20 18 2:39 PM EST documented as of this encounter Care Teams Swaging Machine Adjuster Relationship Specialty Start Date End Date Una Telles CNP [address] [facility], 2nd [place] [address] [email or web address] PCP - General 06/08/17 05/23/23 Afua Leblanc CNP [address] [facility] [address] [place] [address] [email or web address] PCP - General Nurse Practitioner 05/24/23 Jazmyn Anderson RN [address] [place] [address] [email or web address] PHCM Ham Rolling Machine Operator 05/30/18 03/07/19 Cayden Al MD [address] [facility] [address] [place] [address] [email or web address] Insurance Assigned Provider 11/25/23 08/26/24 Marina Curry [address] [place] [address] [email or web address] PHCM Community Petroleum Production Engineer 12/30/24 12/30/24 documented as of this encounter Additional Source Comments The information contained in this document represents components of the legal health record. It is not the complete legal health record.[facility]
--- OUTSIDE RECORDS SUMMARY | 2025-06-03 17:56 | XMS_ITS | Encounter Summary ---
Author Organization [facility] Address [address] [facility] [address] [place] [address] Phone Care Team Providers Care Milk Pickup Truck Driver Name Role Phone [place], Una Aiken TOOL CARRIER Primary Care Provider Jazmyn Anderson RN Unavailable [phone] Afua Leblanc TOOL CARRIER Primary Care Provider Cayden Al MD Unavailable Marina Curry Unavailable [email or web address] Encounter Details Date Type Department Care Team (Late st Contact Info) Description 09/20/2018 Ancillary [facility] [address] [place] [address] Travis Donald MD [address] [place] [address] [email or web address] Social History Tobacco Use Types Packs/Day Years [...] Care Visit [facility] [address] [place] [phone] Natalie Watts [address] [place] [address] 06/06/2025 3:00 AM EDT Home Care Visit [facility] [address] [place] [phone] Cee Peters RN [address] [place] [address] 06/09/2025 1:30 AM EDT Home Care Visit [facility] [address] [place] [phone] Cee Peters RN [address] [place] [address] 06/11/2025 12:30 AM EDT Home Care Visit [facility] [address] [place] [phone] Cee Peters RN [address] [place] [address] 06/13/2025 1:30 AM EDT Home Care Visit [facility] [address] [place] [phone] Cee Peters RN [address] [place] [address] 06/13/2025 3:00 PM EDT Office Visit [facility] [address] [place] [address] 3rd Floor, [address] [place] [address] Sumaya Tompkins DNP [address] [place] [address] [email or web address] 06/16/2025 12:30 AM EDT Home Care Visit [facility] [place] [facility] [address] [place] [address] Cee Peters RN [address] [place] [address] [email or web address] 06/18/2025 12:30 AM EDT Home Care Visit [facility] [address] [place] [phone] Cee Peters RN [address] [place] [address] [email or web address] 06/20/2025 1:00 AM EDT Home Care Visit [facility] [place] [facility] [address] [place] [phone] Cee Peters RN [address] [place] [address] [email or web address] 06/23/2025 12:30 AM EST Home Care Visit [facility] [place] [facility] [address] [place] [phone] Cee Peters RN [address] [place] [address] [email or web address] 06/25/2025 12:30 AM EST Home Care Visit [facility] [place] [facility] [address] [place] [address] Cee Peters RN [address] [place] [address] [email or web address] 06/27/2025 1:00 AM EST Home Care Visit [facility] [address] [place] [phone] Cee Peters RN [address] [place] [address] [email or web address] 06/30/2025 12:30 AM EST Home Care Visit [facility] [place] [facility] [address] [place] [phone] Cee Peters RN [address] [place] [address] [email or web address] 07/02/2025 12:30 AM EST Home Care Visit [facility] [place] [facility] [address] [place] [phone] Cee Peters RN [address] [place] [address] [email or web address] 07/04/2025 1:00 AM EST Home Care Visit [facility] [place] [facility] [address] [place] [phone] Cee Peters RN [address] [place] [address] [email or web address] 07/07/2025 12:30 AM EST Home Care Visit [facility] [place] [facility] [address] [place] [phone] Cee Peters RN [address] [place] [address] [email or web address] 07/09/2025 12:30 AM EST Home Care Visit [facility] [address] [place] [phone] Cee Peters RN [address] [place] [address] [email or web address] 07/11/2025 1:00 AM EST Home Care Visit [facility] [address] [place] [phone] Cee Peters RN [address] [place] [address] [email or web address] 07/14/2025 12:30 AM EST Home Care Visit [facility] [place] [facility] [address] [place] [address] Cee Peters RN [address] [place] [address] 07/16/2025 12:30 AM EST Home Care Visit [facility] [place] [facility] [address] [place] [phone] Cee Peters RN [address] [place] [address] [email or web address] 07/18/2025 1:00 AM EST Home Care Visit [facility] [address] [place] [phone] Cee Peters RN [address] [place] [address] [email or web address] 07/21/2025 Appointment [facility] [address] [place] [phone] Cee Peters RN [address] [place] [address] 07/23/2025 Home Care Visit [facility] [place] [facility] [address] [place] [address] Cee Peters RN [address] [place] [address] [email or web address] 07/25/2025 Home Care Visit [facility] [place] [facility] [address] [place] [address] Cee Peters RN [address] [place] [address] documented as of this encounter Goals Goal [...] documented as of this encounter Care Teams Milk Pickup Truck Driver Relationship Specialty Start Date End Date Una Telles CNP [address] [address] [email or web address] PCP - General 06/08/17 05/23/23 Afua Leblanc CNP [address] [place] [address] [address] [place] [address] [email or web address] PCP - General Nurse Practitioner 05/24/23 Jazmyn Anderson RN [address] [place] [address] [email or web address] PHCM Machine Printer Hose 05/30/18 03/07/19 Cayden Al MD [address] [place] [address] 7 [place] [address] [email or web address] Insurance Assigned Provider 11/25/23 08/26/24 Marina Curry [address] [place] [address] [email or web address] PHCM Community Broadcast Traffic Coordinator 12/30/24 12/30/24 documented as of this encounter Additional Source Comments The information contained in this document represents components of the legal health record. It is not the complete legal health record.[facility]
--- OUTSIDE RECORDS SUMMARY | 2025-06-03 17:56 | XMS_ITS | Encounter Summary ---
Author Organization [facility] Address [address] [facility] [address] [place] [address] Phone Care Team Providers Care Can Operator Name Role Phone Hayes, Una Aiken SHOP SERVICE TECHNICIAN Primary Care Provider Jazmyn Anderson RN Unavailable [phone] Afua Leblanc SHOP SERVICE TECHNICIAN Primary Care Provider Cayden Al MD Unavailable Marina Curry Unavailable [email or web address] Encounter Details Date Type Department Care Team (Late st Contact Info) Description 09/05/2018 Procedure Pass [facility] [address] [place] [address] Social History Tobacco Use Types Packs/Day Years [...] Encounters Date Type Department Care Team (Late Contact Info) Description 06/04/2025 12:30 AM EDT Home Care Visit [facility] [address] [place] [address] Natalie Watts [address] [place] [address] [email or web address] 06/06/2025 3:00 AM EDT Home Care Visit [facility] [address] [place] [address] Cee Peters RN [address] [place] [address] 06/09/2025 1:30 AM EDT Home Care Visit [facility] [address] [place] [address] Cee Peters RN [address] [place] [address] 06/11/2025 12:30 AM EDT Home Care Visit [facility] [address] [place] [address] Cee Peters RN [address] [place] [address] 06/13/2025 1:30 AM EDT Home Care Visit [facility] [address] [place] [address] Cee Peters RN [address] [place] [address] 06/13/2025 3:00 PM EDT Office Visit [facility] 3rd Floor, [address] [place] [address] Sumaya Tompkins, [address] [address] 06/16/2025 12:30 AM EDT Home Care Visit [facility] [address] [place] [phone] Cee Petres RN [address] [place] [address] [email or web address] 06/18/2025 12:30 AM EDT Home Care Visit [facility] [address] [place] [phone] Cee Peters RN [address] [place] [address] 06/20/2025 1:00 AM EDT Home Care Visit [facility] [address] [place] [phone] Cee Peters RN [address] [place] [address] [email or web address] 06/23/2025 12:30 AM EST Home Care Visit [facility] [address] [place] [phone] Cee Peters RN [address] [place] [address] [email or web address] 06/25/2025 12:30 AM EST Home Care Visit [facility] [address] [place] [phone] Cee Peters RN [address] [place] [address] 06/27/2025 1:00 AM EST Home Care Visit [facility] [address] [place] [phone] Cee Peters RN [address] [place] [address] [email or web address] 06/30/2025 12:30 AM EST Home Care Visit [facility] [address] [place] [address] Cee Peters RN [address] [place] [address] [email or web address] 07/02/2025 12:30 AM EST Home Care Visit [facility] [address] [place] [address] Cee Peters RN [address] [place] [address] [email or web address] 07/04/2025 1:00 AM EST Home Care Visit [facility] [address] [place] [address] Cee Peters RN [address] [place] [address] [email or web address] 07/07/2025 12:30 AM EST Home Care Visit [facility] [address] [place] [phone] Cee Peters RN [address] [place] [address] [email or web address] 07/09/2025 12:30 AM EST Home Care Visit [facility] [address] [place] [phone] Cee Peters RN [address] [place] [address] [email or web address] 07/11/2025 1:00 AM EST Home Care Visit [facility] [address] [place] [address] Cee Peters RN [address] [place] [address] [email or web address] 07/14/2025 12:30 AM EST Home Care Visit [facility] [address] [place] [address] Cee Peters RN [address] [place] [address] [email or web address] 07/16/2025 12:30 AM EST Home Care Visit [facility] [address] [place] [phone] Cee Peters RN [address] [place] [address] [email or web address] 07/18/2025 1:00 AM EST Home Care Visit [facility] [address] [place] [phone] Cee Peters RN [address] [place] [address] [email or web address] 07/21/2025 Appointment [facility] [address] [place] [phone] Cee Peters RN [address] [place] [address] [email or web address] 07/23/2025 Home Care Visit [facility] [address] [place] [phone] Cee Peters RN [address] [place] [address] [email or web address] 07/25/2025 Home Care Visit [facility] [address] [place] [phone] Cee Peters RN [address] [place] [address] [email or web address] documented as of this encounter Goals Goal Patient Goal Type Associated Problems Recent Progress Patient-Stated? Author Adhere to prescribed treatment plan Care Plan Chronic Condition Self-Management No Sotolotto, Jazmyn, RN Note: Barriers: No identified barriers Manage [...] documented as of this encounter Care Teams Can Operator Relationship Specialty Start Date End Date Una Telles CNP [address] [place] [address], [address] [place] [address] PCP - General 06/08/17 05/23/23 Afua Leblanc CNP [address] [place] [address] PCP - General Nurse Practitioner 05/24/23 Jazmyn Anderson RN [address] [place] [address] PHCM Extrusion Die Coordinator 05/30/18 03/07/19 Cayden Al MD [address] [place] [address] 7 [place] [address] Insurance Assigned Provider 11/25/23 08/26/24 Marina Curry [address] [place] [address] [email or web address] PHCM Community Propagator 12/30/24 12/30/24 documented as of this encounter Additional Source Comments The information contained in this document represents components of the legal health record. It is not the complete legal health record.[facility]
--- OUTSIDE RECORDS SUMMARY | 2025-06-03 17:56 | XMS_ITS | Encounter Summary ---
Author Organization [facility] Address [address] [facility] [address] [place] [address] Phone Care Team Providers Care Waist Pleater Name Role Phone Neche, Una Aiken BLACK PICKLER Primary Care Provider [phone] Jazmyn Anderson RN Unavailable [phone] Afua Leblanc BLACK PICKLER Primary Care Provider Cayden Al MD Unavailable Marina Curry Unavailable [email or web address] Encounter Details Date Type Department Care Team (Late st Contact Info) Description 12/26/2018 Procedure Pass [facility], [address] [address] Social History Tobacco Use Types Packs/Day Years [...] Visit [facility] [address] [place] [address] Natalie Watts [address] [place] [address] 06/06/2025 3:00 AM EDT Home Care Visit [facility] [address] [place] [address] Cee Peters RN [address] [place] [address] 06/09/2025 1:30 AM EDT Home Care Visit [facility] [address] [place] [phone] Cee Peters RN [address] [place] [address] 06/11/2025 12:30 AM EDT Home Care Visit [facility] [address] [place] [phone] Cee Peters RN [address] [place] [address] 06/13/2025 1:30 AM EDT Home Care Visit [facility] [address] [place] [phone] Cee Peters RN [address] [place] [address] 06/13/2025 3:00 PM EDT [facility] Visit [facility] 3rd Floor, [address] [place] [address] Sumaya Tompkins, [address] [address] 06/16/2025 12:30 AM EDT Home Care Visit [facility] [address] [place] [address] Cee Peters RN [address] [place] [address] 06/18/2025 12:30 AM EDT Home Care Visit [facility] [address] [place] [address] Cee Peters RN [address] [place] [address] 06/20/2025 1:00 AM EDT Home Care Visit [facility] [address] [place] [phone] Cee Peters RN [address] [place] [address] 06/23/2025 12:30 AM EST Home Care Visit [facility] [address] [place] [phone] Cee Peters RN [address] [place] [address] 06/25/2025 12:30 AM EST Home Care Visit [facility] [address] [place] [phone] Cee Peters RN [address] [place] [address] 06/27/2025 1:00 AM EST Home Care Visit [facility] [address] [place] [address] Cee Peters RN [address] [place] [address] 06/30/2025 12:30 AM EST Home Care Visit [facility] [address] [place] [phone] Cee Peters RN [address] [place] [address] 07/02/2025 12:30 AM EST Home Care Visit [facility] [address] [place] [phone] Cee Peters RN [address] [place] [address] 07/04/2025 1:00 AM EST Home Care Visit [facility] [address] [place] [phone] Cee Peters RN [address] [place] [address] 07/07/2025 12:30 AM EST Home Care Visit [facility] [address] [place] [phone] Cee Peters RN [address] [place] [address] 07/09/2025 12:30 AM EST Home Care Visit [facility] [address] [place] [phone] Cee Peters RN [address] [place] [address] 07/11/2025 1:00 AM EST Home Care Visit [facility] [address] [place] [phone] Cee Peters RN [address] [place] [address] 07/14/2025 12:30 AM EST Home Care Visit [facility] [address] [place] [phone] Cee Peters RN [address] [place] [address] 07/16/2025 12:30 AM EST Home Care Visit [facility] [address] [place] [phone] Cee Peters RN [address] [place] [address] 07/18/2025 1:00 AM EST Home Care Visit [facility] [address] [place] [phone] Cee Peters RN [address] [place] [address] 07/21/2025 Appointment [facility] [address] [place] [phone] Cee Peters RN [address] [place] [address] 07/23/2025 Home Care Visit [facility] [address] [place] [phone] Cee Peters RN [address] [place] [address] 07/25/2025 Home Care Visit [facility] [address] [place] [phone] Cee Peters RN [address] [place] [address] documented as of this encounter Goals Goal Patient Goal Type Associated Problems Recent Progress Patient-Stated? Author Adhere to prescribed treatment plan Care Plan Chronic Condition Self-Management Jazmyn Smiley, RN Note: Barriers: No identified barriers Manage [...] documented as of this encounter Care Teams Waist Pleater Relationship Specialty Start Date End Date Una Telles CNP [address] [place] [address], [address] [place] [address] PCP - General 06/08/17 05/23/23 Afua Leblanc CNP [address] [place] [address] PCP - General Nurse Practitioner 05/24/23 Jazmyn Anderson RN [address] [place] [address] PHCM Territory Sales Representative 05/30/18 03/07/19 Cayden Al MD [address] [place] [address] Insurance Assigned Provider 11/25/23 08/26/24 Marina Curry [address] [place] [address] [email or web address] PHCM Community Hoeing Row Boss 12/30/24 12/30/24 documented as of this encounter Additional Source Comments The information contained in this document represents components of the legal health record. It is not the complete legal health record.[facility]
--- OUTSIDE RECORDS SUMMARY | 2025-06-03 17:56 | XMS_ITS | Encounter Summary ---
Author Organization [facility] Address [address] [place] [address] Phone Care Team Providers Care Change Management Analyst Name Role Phone Afua Leblanc SHERLY Primary Care Provider [phone] Marina Curry Unavailable karlo Encounter Details Date Type Department Care Team (Late st Contact Info) Description 09/24/2024 Procedure Pass [facility] [address], [place] [id number] Social History Tobacco Use Types Packs/Day Years Used Date Smoking Tobacco: Never Smokeless Tobacco: Never Alcohol Use Standard Drinks/Week Comments Not Currently 0 (1 standard drink = 0.6 oz pur e alcohol) none for years Home Health Assessment: Transportation Answer Date Recorded Lack of Transportation (Medical) No 09/26/2024 Lack of Transportation (Non-Medical) No 09/26/2024 Patient Unable or Declines to Respond No 09/26/2024 Education Answer Date Recorded Are you interested in more education? Not on kaelyn e 12/16/2022 Are you concerned about learning? Not on file 12/16/2022 No 12/16/2022 No 12/16/2022 Digital Access Answer Date Recorded No 01/16/2023 No 01/16/2023 Reliable internet access at home? Not on file 01/16/2023 Device with a working camera? Not on file Intimate Partner Violence Answer Date R ecorded Are you denied basic needs s uch as food, clothing, or medical care? No 09/22/2024 In the past 12 months have y ou been in a relationship with a person who hurts, threatens, or tries to control you? No 09/22/2024 Are you denied basic needs s uch as food, clothing, or medical care? No 09/22/2024 In the past 12 months have y ou been in a relationship with a person who hurts, threatens, or tries to control you? No 09/22/2024 Comments No Sex and Gender Information Value Date Recorded Sex Assigned at Female 09/04/2018 5:38 PM EST Legal Sex Female 10:01 PM EDT Gender Identity Female 09/04/2018 5:38 PM EST Sexual Orientation Straight 09/04/2018 5: 38 PM EST Occupation Industry Job Start Date Job End Date Retired, previously worked at [employer] Not on file Not on file Not on file documented as of this encounter Plan of Treatment Upcoming Encounters Date Type Department Care Team (Late st Contact Info) Description 06/04/2025 12:30 AM EDT [facility] [address] [place] [address] Natalie Watts [address] [place] [address] 06/06/2025 3:00 AM EDT [facility] [address] [place] [address] Cee Peters RN [address] [place] [address] 06/09/2025 1:30 AM EDT Home [facility] Visit [facility] [address] [place] [address] Cee Peters RN [address] [place] [address] 06/11/2025 12:30 AM EDT Home [facility] Visit [facility] [address] [place] [address] Cee Peters RN [address] [place] [address] 06/13/2025 1:30 AM EDT Home [facility] Visit [facility] [address] [place] [phone] Cee Peters RN [address] [place] [address] 06/13/2025 3:00 PM EDT Office Visit [facility] [address] [place] [address] [address]rd Floor, [address] [place] [address] Sumaya Tompkins, [address] [address] 06/16/2025 12:30 AM EDT Home [facility] Visit [facility] [address] [place] [phone] Cee Peters RN [address] [place] [address] 06/18/2025 12:30 AM EDT Home Care Visit [facility] [address] [place] [phone] Cee Peters RN [address] [place] [address] 06/20/2025 1:00 AM EDT Home [facility] Visit [facility] [address] [place] [phone] Cee Peters RN [address] [place] [address] 06/23/2025 12:30 AM EST Home [facility] Visit [facility] [address] [place] [address] Cee Peters RN [address] [place] [address] 06/25/2025 12:30 AM EST Home [facility] Visit [facility] [address] [place] [address] Cee Peters RN [address] [place] [address] 06/27/2025 1:00 AM EST [facility] [address] [place] [address] Cee Peters RN [address] [place] [address] 06/30/2025 12:30 AM EST Home Care Visit [facility] [address] [place] [phone] Cee Peters RN [address] [place] [address] 07/02/2025 12:30 AM EST Home Care Visit [facility] [address] [place] [address] Cee Peters RN [address] [place] [address] 07/04/2025 1:00 AM EST Home Care Visit [facility] [address] [place] [address] Cee Peters RN [address] [place] [address] 07/07/2025 12:30 AM EST Home [facility] Visit [facility] [address] [place] [address] Cee Peters RN [address] [place] [address] 07/09/2025 12:30 AM EST Home Care Visit [facility] [address] [place] [phone] Cee Peters RN [address] [place] [address] 07/11/2025 1:00 AM EST Home Care Visit [facility] [address] [place] [phone] Cee Peters RN [address] [place] [address] 07/14/2025 12:30 AM EST [facility] Visit [facility] [address] [place] [phone] Cee Peters RN [address] [place] [address] 07/16/2025 12:30 AM EST Home [facility] Visit [facility] [address] [place] [phone] Cee Peters RN [address] [place] [address] 07/18/2025 1:00 AM EST Home Care Visit [facility] [address] [place] [phone] Cee Peters RN [address] [place] [address] 07/21/2025 Appointment [facility] [address], [place] [phone] Cee Peters RN [address] [place] [address] 07/23/2025 Home Care Visit [facility] [address] [place] [address] Cee Peters RN [address] [place] [address] 07/25/2025 Home [facility] Visit [facility] [address] [place] [address] Cee Peters RN [address] [place] [address] documented as of this encounter Goals Goal [...] Noted Time PHQ-2 Depression Total Score: 0 09/01/19 22 10:01 AM EST documented as of this encounter Care Teams Change Management Analyst Relationship Specialty Start Date End Date Afua Leblanc CNP [address] [place] [address], [address] [place] [address] PCP - General Nurse Practitioner 05/24/23 Marina Curry [address] [place] [address] [email or web address] PHCM Community Master Black Belt 12/30/24 12/30/24 documented as of this encounter Additional Source Comments The information contained in this document represents components of the legal health record. It is not the complete legal health record.[facility]
--- OUTSIDE RECORDS SUMMARY | 2025-06-03 17:56 | XMS_ITS | Encounter Summary ---
Author Organization [facility] Address [address] [place] [address] Phone Care Team Providers Care Paper Coating Machine Operator Name Role Phone Elfego Una Aiken DIRECTOR WORK Primary Care Provider Afua Leblanc DIRECTOR WORK Primary Care Provider Cayden Al MD Unavailable Marina Curry Unavailable karlo Encounter Details Date Type Department Care Team (Late st Contact Info) Description 11/18/2021 Procedure Pass [facility] Ct Scan - [address] [address] Social History Tobacco Use Types Packs/Day Years Used Date Smoking Tobacco: Never Smokeless Tobacco: Never Alcohol Use Standard Drinks/Week Comments Yes 0 (1 standard drink = 0.6 oz pur e alcohol) rarely Comments No Sex and Gender Information Value Date Recorded Sex Assigned at Female 09/04/2018 5:38 PM EST Legal Sex Female 10:01 PM EDT Gender Identity Female 09/04/2018 5:38 PM EST Sexual Orientation Straight 09/04/2018 5: 38 PM EST documented as of this encounter Functional Status * Calculated C-SSRS Risk Score (Lifetime/Recent) Answer Date of Assessment Author No Risk Indicated 11/18/2021 3:34 PM EDT Delilah Zhu RN * [place] Suicide Severity Rating Scale (Screener/Recent Self-Report) Question Answer Date of Assessment Author 1. Wish to be (Past 1 Month) No 11/18/2021 3:34 PM EDT vEelin Hurley RN 2. Non-Specific Active Suicidal Thoughts (Past 1 Month) No 11/18/2021 3:34 PM EDT Evelin Hurley RN 6. Suicidal Behavior (Lifetime) No 11/18/2021 3:34 PM EDT Evelin Hurley RN documented as of this encounter Plan of Treatment Upcoming Encounters Date Type Department Care Team (Late st Contact Info) Description 06/04/2025 12:30 AM EDT Home Care Visit [facility] [address] [place] [phone] Natalie Watts [address] [place] [address] 06/06/2025 3:00 AM EDT Home Care Visit [facility] [address] [place] [phone] Cee Peters RN [address] [place] [address] 06/09/2025 1:30 AM EDT Home Care Visit [facility] [address] [place] [phone] Cee Peters RN [address] [place] [address] 06/11/2025 12:30 AM EDT Home Care Visit [facility] [address] [place] [phone] Cee Peters RN [address] [place] [address] 06/13/2025 1:30 AM EDT Home Care Visit [facility] [address] [place] [phone] Cee Peters RN [address] [place] [address] 06/13/2025 3:00 PM EDT Office Visit [facility] [address] Floor, [address] [place] [address] Sumaya Tompkins, DNP [address] [place] [address] 06/16/2025 12:30 AM EDT Home Care Visit [facility] [address] [place] [phone] Cee Peters RN [address] [place] [address] 06/18/2025 12:30 AM EDT Home Care Visit [facility] [address] [place] [phone] Cee Peters RN [address] [place] [address] 06/20/2025 1:00 AM EDT Home Care Visit [facility] [address] [place] [phone] Cee Peters RN [address] [place] [address] 06/23/2025 12:30 AM EST Home Care Visit [facility] [address] [place] [phone] Cee Peters RN [address] [place] [address] 06/25/2025 12:30 AM EST Home Care Visit [facility] [address] [place] [phone] Cee Peters RN [address] [place] [address] 06/27/2025 1:00 AM EST Home Care Visit [facility] [address] [place] [phone] Cee Peters RN [address] [place] [address] 06/30/2025 12:30 AM EST Home Care Visit [facility] [address] [place] [phone] Cee Peters RN [address] [place] [address] 07/02/2025 12:30 AM EST Home Care Visit [facility] [address] [place] [phone] Cee Peters RN [address] [place] [address] 07/04/2025 1:00 AM EST Home Care Visit [facility] [address] [place] [phone] Cee Peters RN [address] [place] [address] 07/07/2025 12:30 AM EST Home Care Visit [facility] [address] [place] [phone] Cee Peters RN [address] [place] [address] 07/09/2025 12:30 AM EST Home Care Visit [facility] [address] [place] [address] Cee Peters RN [address] [place] [address] 07/11/2025 1:00 AM EST Home Care Visit [facility] [address] [place] [address] Cee Peters RN [address] [place] [address] 07/14/2025 12:30 AM EST Home Care Visit [facility] [address] [place] [phone] Cee Peters RN [address] [place] [address] 07/16/2025 12:30 AM EST Home Care Visit [facility] [address] [place] [phone] Cee Peters RN [address] [place] [address] 07/18/2025 1:00 AM EST Home Care Visit [facility] [address] [place] [phone] Cee Peters RN [address] [place] [address] 07/21/2025 Appointment [facility] [address] [place] [address] Cee Peters RN [address] [place] [address] 07/23/2025 Home Care Visit [facility] [address] [place] [address] Cee Peters RN [address] [place] [address] 07/25/2025 Home Care Visit [facility] [address] [place] [phone] Cee Peters RN [address] [place] [address] documented as of this encounter Goals Goal Patient Goal Type Associated Problems Recent Progress Patient-Stated? Author Adhere to prescribed treatment plan Care Plan Chronic Condition Self-Management No Jazmny Anderson RN Note: Barriers: No identified barriers [...] documented as of this encounter Care Teams Paper Coating Machine Operator Relationship Specialty Start Date End Date Una Telles CNP [address] [facility], 2nd [place] [address] PCP - General 06/08/17 05/23/23 Afua Leblanc CNP [address] [place] [address], [address] [place] [address] PCP - General Nurse Practitioner 05/24/23 Cayden Al MD [address] [place] [address], [address] [place] [address] [email or web address] Insurance Assigned Provider 11/25/23 08/26/24 Marina Curry [address] [place] [address] [email or web address] PHCM Community Nursing Tech 12/30/24 12/30/24 documented as of this encounter Additional Source Comments The information contained in this document represents components of the legal health record. It is not the complete legal health record.[facility]
--- OUTSIDE RECORDS SUMMARY | 2025-06-03 17:56 | XMS_ITS | Encounter Summary ---
Author Organization [facility] Address [address] [place] [address] Phone Care Team Providers Care Porter Head Name Role Phone Penn Laird, Una Aiken MANAGER OF CHANGE Primary Care Provider Jazmyn Anderson RN Unavailable [phone] Afua Leblanc MANAGER OF CHANGE Primary Care Provider Cayden Al MD Unavailable Marina Curry Unavailable karlo [email or web address] Encounter Details Date Type Department Care Team (Late st Contact Info) Description 09/20/2018 Ancillary Orders Non-Invasive Cardiology [address] [place] [address] Travis Donald MD [address] [place] [address] [email or web address] Second degree heart block Social History Tobacco Use Types Packs/Day Years [...] Care Visit [facility] [address] [place] [phone] Natalie Watts [address] [place] [address] 06/06/2025 3:00 AM EDT Home Care Visit [facility] [address] [place] [phone] Cee Peters RN [address] [place] [address] 06/09/2025 1:30 AM EDT Home Care Visit [facility] [address] [place] [phone] Cee Peters RN [address] [place] [address] 06/11/2025 12:30 AM EDT Home Care Visit [facility] [address] [place] [phone] Cee Peters RN [address] [place] [address] 06/13/2025 1:30 AM EDT Home Care Visit [facility] [address] [place] [phone] Cee Peters RN [address] [place] [address] 06/13/2025 3:00 PM EDT Office Visit [facility] [address] [place] [address] [address]rd Floor, [address] [place] [address] Leda Sumayaonelia Jonas, DNP [address] [place] [address] 06/16/2025 12:30 AM EDT Home Care Visit [facility] [address] [place] [address] Cee Peters RN [address] [place] [address] 06/18/2025 12:30 AM EDT Home Care Visit [facility] [address] [place] [phone] Cee Peters RN [address] [place] [address] 06/20/2025 1:00 AM EDT Home Care Visit [facility] [address] [place] [phone] Cee Peters RN [address] [place] [address] 06/23/2025 12:30 AM EST Home Care Visit [facility] [address] [place] [phone] Cee Peters RN [address] [place] [address] 06/25/2025 12:30 AM EST Home Care Visit [facility] [address] [place] [phone] Cee Peters RN [address] [place] [address] 06/27/2025 1:00 AM EST Home Care Visit [facility] [address] [place] [phone] Cee Peters RN [address] [place] [address] 06/30/2025 12:30 AM EST Home Care Visit [facility] [address] [place] [phone] Cee Peters RN [address] [place] [address] 07/02/2025 12:30 AM EST Home Care Visit [facility] [address] [place] [phone] Cee Peters RN [address] [place] [address] 07/04/2025 1:00 AM EST Home Care Visit [facility] [address] [place] [phone] Cee Peters RN [address] [place] [address] 07/07/2025 12:30 AM EST Home Care Visit [facility] [address] [place] [phone] Cee Peters RN [address] [place] [address] 07/09/2025 12:30 AM EST Home Care Visit [facility] [address] [place] [phone] Cee Peters RN [address] [place] [address] 07/11/2025 1:00 AM EST Home Care Visit [facility] [address] [place] [phone] Cee Peters RN [address] [place] [address] 07/14/2025 12:30 AM EST Home Care Visit [facility] [address] [place] [address] Cee Peters RN [address] [place] [address] 07/16/2025 12:30 AM EST Home Care Visit [facility] [address] [place] [phone] Cee Peters RN [address] [place] [address] 07/18/2025 1:00 AM EST Home Care Visit [facility] [address] [place] [phone] Cee Peters RN [address] [place] [address] 07/21/2025 Appointment [facility] [address] [place] [phone] Cee Peters RN [address] [place] [address] 07/23/2025 Home Care Visit [facility] [address] [place] [address] Cee Peters RN [address] [place] [address] 07/25/2025 Home Care Visit [facility] [address] [place] [address] Cee Peters RN [address] [place] [address] [email or web address] documented as of this encounter Goals Goal Patient Goal Type Associated Problems Recent Progress Patient-Stated? Author Adhere to prescribed treatment plan Care Plan Chronic Condition Self-Management No Jazmyn Anderson RN Note: Barriers: No identified barriers Manage and adhere to medication treatment plan Care Plan Medication Management No Jazmyn Anderson RN Note: Barriers: No identified barriers documented as of this encounter Visit Diagnoses Diagnosis Second degree heart block Other second degree atrioventricular block documented in this encounter Additional Health Concerns Active [...] documented as of this encounter Care Teams Porter Head Relationship Specialty Start Date End Date Una Telles CNP [address] [place] [address], [address] [place] [address] [email or web address] PCP - General 06/08/17 05/23/23 Afua Leblanc CNP [address] [place] [address] [address] [place] [address] [email or web address] PCP - General Nurse Practitioner 05/24/23 Jazmyn Anderson RN [address] [place] [address] [email or web address] PHCM Contract Technical Writer 05/30/18 03/07/19 Cayden Al MD [address] [place] [address] 7 [place] [address] [email or web address] Insurance Assigned Provider 11/25/23 08/26/24 Marina Curry [address] [place] [address] [email or web address] PHCM Community Manager Government 12/30/24 12/30/24 documented as of this encounter Additional Source Comments The information contained in this document represents components of the legal health record. It is not the complete legal health record.[facility]
--- OUTSIDE RECORDS SUMMARY | 2025-06-03 17:56 | XMS_ITS | Encounter Summary ---
Author Organization [facility] Address [address] [facility] [address] [place] [address] Phone Care Team Providers Care Human Resource Analyst Name Role Phone Afua Leblanc SHERLY Primary Care Provider [phone] Reason for Visit * Auth/Cert (Routine) Specialty Diagnoses / Procedures Referred By Susan t Referred To Contact Referral ID Status Reason Start Date Expiration Date Visits Re quested Visits Authorized [id number] 1 1 Encounter Details Date Type Department Care Team (Late st Contact Info) Description 05/30/2025 Home Care Visit [facility] [address] [place] [address] Palmer Adams, JULY [address] [place] [address] [email or web address] CASE COMMUNICATION Social History Tobacco Use Types Packs/Day Years [...] Job End Date Retired, previously worked at [employer] Not on file Not on file Not on file documented as of this encounter Plan of Treatment Upcoming Encounters Date Type Department Care Team (Late st Contact Info) Description 06/04/2025 12:30 AM EDT Home Care Visit [facility] [address] [place] [phone] Natalie Watts [address] [place] [address] [email or web address] 06/06/2025 3:00 AM EDT Home Care Visit [facility] [address] [place] [phone] Cee Peters RN [address] [place] [address] 06/09/2025 1:30 AM EDT Home Care Visit [facility] [address] [place] [phone] Cee Peters RN [address] [place] [address] [email or web address] 06/11/2025 12:30 AM EDT Home Care Visit [facility] [address] [place] [phone] Cee Peters RN [address] [place] [address] 06/13/2025 1:30 AM EDT Home Care Visit [facility] [address] [place] [phone] Cee Peters RN [address] [place] [address] 06/13/2025 3:00 PM EDT Office Visit [facility] [address]rd Floor, [address] [place] [address] Sumaya Tompkins, [address] [address] [email or web address] 06/16/2025 12:30 AM EDT Home Care Visit [facility] [address] [place] [phone] Cee Peters RN [address] [place] [address] [email or web address] 06/18/2025 12:30 AM EDT Home Care Visit [facility] [address] [place] [phone] Cee Peters RN [address] [place] [address] [email or web address] 06/20/2025 1:00 AM EDT Home Care Visit [facility] [address] [place] [phone] Cee Peters RN [address] [place] [address] [email or web address] 06/23/2025 12:30 AM EST Home Care Visit [facility] [address] [place] [phone] Cee Peters RN [address] [place] [address] [email or web address] 06/25/2025 12:30 AM EST Home Care Visit [facility] [address] [place] [phone] Cee Peters RN [address] [place] [address] [email or web address] 06/27/2025 1:00 AM EST Home Care Visit [facility] [address] [place] [address] Cee Peters RN [address] [place] [address] [email or web address] 06/30/2025 12:30 AM EST Home Care Visit [facility] [address] [place] [phone] Cee Peters RN [address] [place] [address] [email or web address] 07/02/2025 12:30 AM EST Home Care Visit [facility] [address] [place] [phone] Cee Peters RN [address] [place] [address] [email or web address] 07/04/2025 1:00 AM EST Home Care Visit [facility] [address] [place] [phone] Cee Peters RN [address] [place] [address] [email or web address] 07/07/2025 12:30 AM EST Home Care Visit [facility] [address] [place] [phone] Cee Peters RN [address] [place] [address] [email or web address] 07/09/2025 12:30 AM EST Home Care Visit [facility] [address] [place] [address] Cee Peters RN [address] [place] [address] [email or web address] 07/11/2025 1:00 AM EST Home Care Visit [facility] [address] [place] [address] Cee Peters RN [address] [place] [address] 07/14/2025 12:30 AM EST Home Care Visit [facility] [address] [place] [address] Cee Peters RN [address] [place] [address] [email or web address] 07/16/2025 12:30 AM EST Home Care Visit [facility] [address] [place] [phone] Cee Peters RN [address] [place] [address] [email or web address] 07/18/2025 1:00 AM EST Home Care Visit [facility] [address] [place] [phone] Cee Peters RN [address] [place] [address] [email or web address] 07/21/2025 Appointment [facility] [address] [place] [phone] Cee Peters RN [address] [place] [address] [email or web address] 07/23/2025 Home Care Visit [facility] [address] [place] [address] Cee Peetrs RN [address] [place] [address] [email or web address] 07/25/2025 Home Care Visit [facility] [address] [place] [address] Cee Peters RN [address] [place] [address] [email or web address] documented as of this encounter Goals Goal [...] documented as of this encounter Care Teams Human Resource Analyst Relationship Specialty Start Date End Date Afua Leblanc CNP [address] [place] [address], [address] [place] [address] [email or web address] PCP - General Nurse Practitioner 05/24/23 documented as of this encounter Additional Source Comments The information contained in this document represents components of the legal health record. It is not the complete legal health record.[facility]
--- OUTSIDE RECORDS SUMMARY | 2025-06-03 17:56 | XMS_ITS | Encounter Summary ---
Author Organization [facility] Address [address] [facility] [address] [place] [address] Phone Care Team Providers Care Access Control Specialist Name Role Phone Una Telles Nelli [employer] Primary Care Provider [phone] Ashely Leblancghan MEDICAL DEVICE SALES Primary Care Provider Cayden Al MD Unavailable Marina Curry Unavailable [email or web address] Encounter Details Date Type Department Care Team (Late st Contact Info) Description 12/29/2020 Transcribe Orders [facility] [address] [place] [address] Ean Santamaria MD [place], [place] [id number] Routine general medical examination at a health care facility (Primary Dx) Social History Tobacco Use Types Packs/Day Years [...] Care Visit [facility] [address] [place] [phone] Natalie Watts [address] [place] [address] 06/06/2025 3:00 AM EDT Home Care Visit [facility] [address] [place] [phone] Cee Peters RN [address] [place] [address] 06/09/2025 1:30 AM EDT Home Care Visit [facility] [address] [place] [phone] Cee Peters RN [address] [place] [address] 06/11/2025 12:30 AM EDT Home Care Visit [facility] [address] [place] [phone] Cee Peters RN [address] [place] [address] 06/13/2025 1:30 AM EDT Home Care Visit [facility] [address] [place] [phone] Cee Peters RN [address] [place] [address] 06/13/2025 3:00 PM EDT Office Visit [facility] [address] [place] [address] [address]rd Floor, [address] [place] [address] Leda, Sumaya Jonas, [address] [address] [email or web address] 06/16/2025 12:30 AM EDT Home Care Visit [facility] [address] [place] [address] Cee Peters RN [address] [place] [address] [email or web address] 06/18/2025 12:30 AM EDT Home Care Visit [facility] [address] [place] [phone] Cee Peters RN [address] [place] [address] [email or web address] 06/20/2025 1:00 AM EDT Home Care Visit [facility] [address] [place] [address] Cee Peters RN [address] [place] [address] [email or web address] 06/23/2025 12:30 AM EST Home Care Visit [facility] [address] [place] [phone] Cee Peters RN [address] [place] [address] [email or web address] 06/25/2025 12:30 AM EST Home Care Visit [facility] [address] [place] [address] Cee Peters RN [address] [place] [address] [email or web address] 06/27/2025 1:00 AM EST Home Care Visit [facility] [address] [place] [phone] Cee Peters RN [address] [place] [address] [email or web address] 06/30/2025 12:30 AM EST Home Care Visit [facility] [address] [place] [phone] Cee Peters RN [address] [place] [address] [email or web address] 07/02/2025 12:30 AM EST Home Care Visit [facility] [address] [place] [phone] Cee Peters RN [address] [place] [address] [email or web address] 07/04/2025 1:00 AM EST Home Care Visit [facility] [address] [place] [phone] Cee Peters RN [address] [place] [address] [email or web address] 07/07/2025 12:30 AM EST Home Care Visit [facility] [address] [place] [phone] Cee Peters RN [address] [place] [address] [email or web address] 07/09/2025 12:30 AM EST Home Care Visit [facility] [address] [place] [phone] Cee Peters RN [address] [place] [address] [email or web address] 07/11/2025 1:00 AM EST Home Care Visit [facility] [address] [place] [phone] Cee Peters RN [address] [place] [address] 07/14/2025 12:30 AM EST Home Care Visit [facility] [address] [place] [phone] Cee Peters RN [address] [place] [address] 07/16/2025 12:30 AM EST Home Care Visit [facility] [address] [place] [phone] Cee Peters RN [address] [place] [address] 07/18/2025 1:00 AM EST Home Care Visit [facility] [address] [place] [phone] Cee Peters RN [address] [place] [address] [email or web address] 07/21/2025 Appointment [facility] [address] [place] [phone] Cee Peters RN [address] [place] [address] 07/23/2025 Home Care Visit [facility] [address] [place] [phone] Cee Peters RN [address] [place] [address] [email or web address] 07/25/2025 Home Care Visit [facility] [address] [place] [phone] Cee Peters RN [address] [place] [address] documented as of this encounter Goals Goal Patient Goal Type Associated Problems Recent Progress Patient-Stated? Author Adhere to prescribed treatment plan Care Plan Chronic Condition Self-Management No Jazmyn Anderson RN Note: Barriers: No identified barriers Manage and adhere to medication treatment plan Care Plan Medication Management No Jazmyn Anderson RN Note: Barriers: No identified barriers documented as of this encounter Results * Syphilis antibody screen (12/30/2020 10:54 AM EDT) RPR NON-REACTIV E NON-REACTI VE [facility] Blood 12/30/2020 10:5 4 AM EDT 12/30/2020 10:59 AM EDT us Ean Santamaria MD LAB BLOOD ORDERAB LES Final Result [address] [address] * Quantiferon-TB Gold (12/30/2020 10:54 AM EDT) QuantiFERON-TB Gold Negative Negative [facility] LAB MED/PATH [facility] Comment: (NOTE) No interferon-gamma response to M. tuberculosis antigens was detected. Infection with M. tuberculosis is unlikely. A single negative result does not exclude infection with M. tuberculosis. In patients at high risk for M.tuberculosis infection, a second test should be considered in accordance with the 2017 ATS/IDSA/CDC Clinical Practice Guidelines for Diagnosis of Tuberculosis in Adults and Children [Maximinoinsohn KENYA et. al. Clin. Infect. Dis. 2017;64(2):111-115]. The reference range for the 'TB1 Ag minus Nil Result' and 'TB2 Ag minus Nil Result' is an Interferon-gamma level <0.35 IU/mL. TB1 Ag minus Nil 0.10 IU/mL [facility] TB2 Ag minus Nil 0.13 IU/mL [facility] Mitogen minus Nil 7.62 IU/mL [facility] Nil Result 0.03 IU/mL [facility] Blood 12/30/2020 10:5 4 AM EDT 12/30/2020 10:59 AM EDT us Ean Santamaria MD LAB BLOOD ORDERAB LES Final Result [facility] [address] [place] [address] documented in this encounter Visit Diagnoses Diagnosis Routine general medical examination at a health care facility- Primary documented in this encounter Additional Health Concerns Active Problems Noted Date Diagnosed Date Chronic Condition Self-Management 06/25/2018 Medication Management 06/25/2018 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 CoV-Risk Comment:Per note documentation 05/16/2025 05/17/2025 12:46 PM EDT Assessment Noted Time PHQ-2 Depression Total Score: 0 06/25/20 18 2:39 PM EST documented as of this encounter Care Teams Access Control Specialist Relationship Specialty Start Date End Date Una Telles CNP [address] [facility] [place] [address] [email or web address] PCP - General 06/08/17 05/23/23 Afua Leblanc CNP [address] [facility] [address] [place] [address] [email or web address] PCP - General Nurse Practitioner 05/24/23 Cayden Al MD [address] [facility] 7 [place] [address] [email or web address] Insurance Assigned Provider 11/25/23 08/26/24 Marina Curry [address] [place] [address] [email or web address] PHCM Community Staple Fiber Washer 12/30/24 12/30/24 documented as of this encounter Additional Source Comments The information contained in this document represents components of the legal health record. It is not the complete legal health record.[facility]
--- OUTSIDE RECORDS SUMMARY | 2025-06-03 17:56 | XMS_ITS | Encounter Summary ---
Author Organization [facility] Address [address] [facility] [address] [place] [address] Phone Care Team Providers Care Shredded Filler Machine Wrapper Layer Name Role Phone Una Telles Nelli [facility] Primary Care Provider [phone] Afua Leblanc TAX COMPLIANCE REPRESENTATIVE Primary Care Provider Cayden Al MD Unavailable Marina Curry Unavailable karlo Encounter Details Date Type Department Care Team (Latest Contact Info) Description 11/04/2021 Transcribe Orders Virtual Department [address] [place] [address] Jai Jones MD [address] [facility] [address] [place] [address] [email or web address] Stage 3b chronic kidney disease (CKD) (Primary Dx); Chronic kidney disease due to type 2 diabetes mellitus; 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 Social History Tobacco Use Types Packs/Day Years [...] Care Visit [facility] [address] [place] [phone] Natalie Watts [address] [place] [address] 06/06/2025 3:00 AM EDT Home Care Visit [facility] [address] [place] [phone] Cee Peters RN [address] [place] [address] 06/09/2025 1:30 AM EDT Home Care Visit [facility] [address] [place] [phone] Cee Peters RN [address] [place] [address] 06/11/2025 12:30 AM EDT Home Care Visit [facility] [address] [place] [phone] Cee Peters RN [address] [place] [address] 06/13/2025 1:30 AM EDT Home Care Visit [facility] [address] [place] [phone] Cee Peters RN [address] [place] [address] 06/13/2025 3:00 PM EDT Office Visit [facility] [address] [place] [address] [address]rd Floor, [address] [place] [address] Leda Sumaya Sumi, DNP [address] [place] [address] 06/16/2025 12:30 AM EDT Home Care Visit [facility] [address] [place] [phone] Cee Peters RN [address] [place] [address] 06/18/2025 12:30 AM EDT Home Care Visit [facility] [address] [place] [phone] Cee Peters RN [address] [place] [address] 06/20/2025 1:00 AM EDT Home Care Visit [facility] [address] [place] [phone] Cee Peters RN [address] [place] [address] 06/23/2025 12:30 AM EST Home Care Visit [facility] [address] [place] [address] Cee Peters RN [address] [place] [address] 06/25/2025 12:30 AM EST Home Care Visit [facility] [address] [place] [phone] Cee Peters RN [address] [place] [address] 06/27/2025 1:00 AM EST Home Care Visit [facility] [address] [place] [phone] Cee Peters RN [address] [place] [address] 06/30/2025 12:30 AM EST Home Care Visit [facility] [address] [place] [phone] Cee Peters RN [address] [place] [address] 07/02/2025 12:30 AM EST Home Care Visit [facility] [address] [place] [phone] Cee Peters RN [address] [place] [address] 07/04/2025 1:00 AM EST Home Care Visit [facility] [address] [place] [phone] Cee Peters RN [address] [place] [address] 07/07/2025 12:30 AM EST Home Care Visit [facility] [address] [place] [phone] Cee Peters RN [address] [place] [address] 07/09/2025 12:30 AM EST Home Care Visit [facility] [address] [place] [phone] Cee Peters RN [address] [place] [address] 07/11/2025 1:00 AM EST Home Care Visit [facility] [address] [place] [phone] Cee Peters RN [address] [place] [address] 07/14/2025 12:30 AM EST Home Care Visit [facility] [address] [place] [address] Cee Peters RN [address] [place] [address] 07/16/2025 12:30 AM EST Home Care Visit [facility] [address] [place] [phone] Cee Peters RN [address] [place] [address] 07/18/2025 1:00 AM EST Home Care Visit [facility] [address] [place] [address] Cee Peters RN [address] [place] [address] 07/21/2025 Appointment [facility] [address] [place] [phone] Cee Peters RN [address] [place] [address] 07/23/2025 Home Care Visit [facility] [address] [place] [address] Cee Peters RN [address] [place] [address] 07/25/2025 Home Care Visit [facility] [address] [place] [address] Cee Peters RN [address] [place] [address] [email or web address] documented as of this encounter Goals Goal Patient Goal Type Associated Problems Recent Progress Patient-Stated? Author Adhere to prescribed treatment plan Care Plan Chronic Condition Self-Management No Jazmyn Anderson RN Note: Barriers: No identified barriers Manage and adhere to medication treatment plan Care Plan Medication Management No Jazmyn Anderson RN Note: Barriers: No identified barriers documented as of this encounter Results * US Kidneys (01/25/2022 11:06 AM EDT) Anatomical Region Laterality Modality Abdomen, Kidney Ultrasound 01/25/2022 11:4 8 AM EDT Impressions 01/25/2022 11:53 AM EDT 1.Cyst at the right mid kidney. Otherwise, unremarkable renal sonography. Narrative 01/25/2022 11:53 AM EDT US KIDNEYS History: CKD, rule out hydronephrosis TECHNIQUE: Kidney Ultrasound. COMPARISON: MRI abdomen 01/09/2019 FINDINGS: Right Kidney: The right kidney measures 9.7 cm. The kidneys are normal in size with normal corticomedullary differentiation and cortical thickness. There is no calculus . No hydronephrosis demonstrated. There is a cyst at the right mid kidney measuring 2.1 cm. No focal renal lesion noted. Left Kidney: The left kidney measures 10.6 cm. The kidneys are normal in size with normal corticomedullary differentiation and cortical thickness. There is no calculus . No hydronephrosis demonstrated. No focal renal lesion noted. Bladder: The bladder is incompletely distended limiting evaluation. No focal bladder lesion demonstrated. Procedure Note Ila Al MD - 01/25/2022 US KIDNEYS History: CKD, rule out hydronephrosis TECHNIQUE: Kidney Ultrasound. COMPARISON: MRI abdomen 01/09/2019 FINDINGS: Right Kidney: The right kidney measures 9.7 cm. The kidneys are normal insize with normal corticomedullary differentiation and cortical thickness.There is no calculus . No hydronephrosis demonstrated. There is a cyst atthe right mid kidney measuring 2.1 cm. No focal renal lesion noted. Left Kidney: The left kidney measures 10.6 cm. The kidneys are normal insize with normal corticomedullary differentiation and cortical thickness.There is no calculus . No hydronephrosis demonstrated. No focal renallesion noted. Bladder: The bladder is incompletely distended limiting evaluation. Nofocal bladder lesion demonstrated. IMPRESSION: 1.Cyst at the right mid kidney. Otherwise, unremarkable renalsonography. 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 documented in this encounter Additional Health Concerns Active Problems Noted Date Diagnosed Date Chronic Condition Self-Management 06/25/2018 Medication Management 06/25/2018 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 CoV-Risk Comment:Per note documentation 05/16/2025 05/17/2025 12:46 PM EDT Assessment Noted Time PHQ-2 Depression Total Score: 0 09/01/19 22 10:01 AM EST documented as of this encounter Care Teams Shredded Filler Machine Wrapper Layer Relationship Specialty Start Date End Date Una Telles CNP [address] [facility], 2nd [place] [address] [email or web address] PCP - General 06/08/17 05/23/23 Afua Leblanc CNP [address] [facility] 7 [place] [address] [email or web address] PCP - General Nurse Practitioner 05/24/23 Cayden Al MD [address] [facility] [address] [place] [address] Insurance Assigned Provider 11/25/23 08/26/24 Marina Curry [address] [place] [address] [email or web address] PHCM Community Plate Glass Installer 12/30/24 12/30/24 documented as of this encounter Additional Source Comments The information contained in this document represents components of the legal health record. It is not the complete legal health record.[facility]
--- OUTSIDE RECORDS SUMMARY | 2025-06-03 17:56 | XMS_ITS | Encounter Summary ---
Author Organization [facility] Address [address] [place] [address] Phone Care Team Providers Care Indoor Plant Technician Name Role Phone Afua Leblanc SHERLY Primary Care Provider Encounter Details Date Type Department Care Team (Late st Contact Info) Description 05/29/2025 Orders Only [facility] Medicine Virtual Department [address] [place] [phone] Altagracia Fisher MD [address] [place] [address] [email or web address] Social History Tobacco Use Types Packs/Day Years [...] Job End Date Retired, previously worked at [employer] Not on file Not on file Not on file documented as of this encounter Plan of Treatment Upcoming Encounters Date Type Department Care Team (Late st Contact Info) Description 06/04/2025 12:30 AM EDT Home Care Visit [facility] [address] [place] [address] Natalie Watts [address] [place] [address] 06/06/2025 3:00 AM EDT Home Care Visit [facility] [address] [place] [phone] Cee Peters RN [address] [place] [address] 06/09/2025 1:30 AM EDT Home Care Visit [facility] [address] [place] [phone] Cee Peters RN [address] [place] [address] 06/11/2025 12:30 AM EDT Home Care Visit [facility] [address] [place] [phone] Cee Peters RN [address] [place] [address] 06/13/2025 1:30 AM EDT Home Care Visit [facility] [address] [place] [phone] Cee Peters RN [address] [place] [address] 06/13/2025 3:00 PM EDT Office Visit [facility] [address] [place] [address] [address]rd Floor, [address] [place] [address] Sumaya Tompkins, [address] [address] 06/16/2025 12:30 AM EDT Home Care Visit [facility] [address] [place] [address] Cee Peters RN [address] [place] [address] 06/18/2025 12:30 AM EDT Home Care Visit [facility] [address] [place] [phone] Cee Peters RN [address] [place] [address] 06/20/2025 1:00 AM EDT Home Care Visit [facility] [address] [place] [phone] Cee Peters RN [address] [place] [address] 06/23/2025 12:30 AM EST Home Care Visit [facility] [address] [place] [phone] Cee Peters RN [address] [place] [address] 06/25/2025 12:30 AM EST Home Care Visit [facility] [address] [place] [phone] Cee Peters RN [address] [place] [address] 06/27/2025 1:00 AM EST Home Care Visit [facility] [address] [place] [phone] Cee Peters RN [address] [place] [address] 06/30/2025 12:30 AM EST Home Care Visit [facility] [address] [place] [phone] Cee Peters RN [address] [place] [address] 07/02/2025 12:30 AM EST Home Care Visit [facility] [address] [place] [phone] Cee Peters RN [address] [place] [address] 07/04/2025 1:00 AM EST Home Care Visit [facility] [address] [place] [phone] Cee Peters RN [address] [place] [address] 07/07/2025 12:30 AM EST Home Care Visit [facility] [address] [place] [phone] Cee Peters RN [address] [place] [address] 07/09/2025 12:30 AM EST Home Care Visit [facility] [address] [place] [phone] Cee Peters RN [address] [place] [address] 07/11/2025 1:00 AM EST Home Care Visit [facility] [address] [place] [phone] Cee Peters RN [address] [place] [address] 07/14/2025 12:30 AM EST Home Care Visit [facility] [address] [place] [phone] Cee Peters RN [address] [place] [address] 07/16/2025 12:30 AM EST Home Care Visit [facility] [address] [place] [phone] Cee Peters RN [address] [place] [address] 07/18/2025 1:00 AM EST Home Care Visit [facility] [address] [place] [phone] Cee Peters RN [address] [place] [address] 07/21/2025 Appointment [facility] [address] [place] [phone] Cee Peters RN [address] [place] [address] 07/23/2025 Home Care Visit [facility] [address] [place] [phone] Cee Peters RN [address] [place] [address] 07/25/2025 Home Care Visit [facility] [address] [place] [phone] Cee Peters RN [address] [place] [address] documented as of this encounter Goals Goal [...] documented as of this encounter Care Teams Indoor Plant Technician Relationship Specialty Start Date End Date Afua Leblanc CNP [address] [place] [address], [address] [place] [address] [email or web address] PCP - General Nurse Practitioner 05/24/23 documented as of this encounter Additional Source Comments The information contained in this document represents components of the legal health record. It is not the complete legal health record.[facility]
--- OUTSIDE RECORDS SUMMARY | 2025-06-03 17:56 | XMS_ITS | Encounter Summary ---
Author Organization [facility] Address [address] [place] [address] Phone Care Team Providers Care Portable Canteen Operator Name Role Phone Afua Leblanc CNP Primary Care Provider Marina Curry Unavailable [email or web address] Encounter Details Date Type Department Care Team (Late st Contact Info) Description 10/24/2024 Telephone [facility] [address] [place], [place] [phone] Afua Leblanc CNP [address] [place] [address] [email or web address] Social History Tobacco Use Types Packs/Day Years Used Date Smoking Tobacco: Never Smokeless Tobacco: Never Alcohol Use Standard Drinks/Week Comments Not Currently 0 (1 standard drink = 0.6 oz pur e alcohol) none for years Home Health Assessment: Transportation Answer Date Recorded Lack of Transportation (Medical) No 10/09/2024 Lack of Transportation (Non-Medical) No 10/09/2024 Patient Unable or Declines to Respond No 10/09/2024 Education Answer Date Recorded Are you interested [...] Job End Date Retired, previously worked at [employer] Not on file Not on file Not on file documented as of this encounter Plan of Treatment Upcoming Encounters Date Type Department Care Team (Late st Contact Info) Description 06/04/2025 12:30 AM EDT Home Care Visit [facility] [address] [place] [address] Natalie Watts [address] [place] [address] 06/06/2025 3:00 AM EDT Home Care Visit [facility] [address] [place], [place] [phone] Cee Peters RN [address] [place] [address] 06/09/2025 1:30 AM EDT Home Care Visit [facility] [address] [place], [place] [phone] Cee Peters RN [address] [place] [address] 06/11/2025 12:30 AM EDT Home Care Visit [facility] [address] [place] [phone] Cee Peters RN [address] [place] [address] 06/13/2025 1:30 AM EDT Home Care Visit [facility] [address] [place] [phone] Cee Peters RN [address] [place] [address] 06/13/2025 3:00 PM EDT Office Visit [facility] [address] [place] [address] [address]rd Floor, [address] [place] [address] Leda, Sumaya Jonas, [address] [address] 06/16/2025 12:30 AM EDT Home Care Visit [facility] [address] [place] [address] Cee Peters RN [address] [place] [address] 06/18/2025 12:30 AM EDT Home Care Visit [facility] [address] [place] [phone] Cee Peters RN [address] [place] [address] 06/20/2025 1:00 AM EDT Home Care Visit [facility] [address] [place] [phone] Cee Peters RN [address] [place] [address] 06/23/2025 12:30 AM EST Home Care Visit [facility] [address] [place] [phone] Cee Peters RN [address] [place] [address] 06/25/2025 12:30 AM EST Home Care Visit [facility] [address] [place] [phone] Cee Peters RN [address] [place] [address] 06/27/2025 1:00 AM EST Home Care Visit [facility] [address] [place] [phone] Cee Peters RN [address] [place] [address] 06/30/2025 12:30 AM EST Home Care Visit [facility] [address] [place] [phone] Cee Peters RN [address] [place] [address] 07/02/2025 12:30 AM EST Home Care Visit [facility] [address] [place] [phone] Cee Peters RN [address] [place] [address] 07/04/2025 1:00 AM EST Home Care Visit [facility] [address] [place] [phone] Cee Peters RN [address] [place] [address] 07/07/2025 12:30 AM EST Home Care Visit [facility] [address] [place] [address] Cee Peters RN [address] [place] [address] 07/09/2025 12:30 AM EST Home Care Visit [facility] [address] [place] [phone] Cee Peters RN [address] [place] [address] 07/11/2025 1:00 AM EST Home Care Visit [facility] [address] [place] [phone] Cee Peters RN [address] [place] [address] 07/14/2025 12:30 AM EST Home Care Visit [facility] [address] [place] [phone] Cee Peters RN [address] [place] [address] 07/16/2025 12:30 AM EST Home Care Visit [facility] [address] [place] [phone] Cee Peters RN [address] [place] [address] 07/18/2025 1:00 AM EST Home Care Visit [facility] [address] [place] [phone] Cee Peters RN [address] [place] [address] 07/21/2025 Appointment [facility] [address] [place] [phone] Cee Peters RN [address] [place] [address] 07/23/2025 Home [facility] Visit [facility] [address] [place] [phone] Cee Peters RN [address] [place] [address] 07/25/2025 Home [facility] Visit [facility] [address] [place] [phone] Cee Peters RN [address] [place] [address] documented as of this encounter Goals Goal [...] documented as of this encounter Care Teams Portable Canteen Operator Relationship Specialty Start Date End Date Afua Leblanc CNP [address] [place] [address], [address] [place] [address] [email or web address] PCP - General Nurse Practitioner 05/24/23 Marina Curry [address] [place] [address] [email or web address] PHCM Community Matcher [employer] 12/30/24 12/30/24 documented as of this encounter Additional Source Comments The information contained in this document represents components of the legal health record. It is not the complete legal health record.[facility]
--- OUTSIDE RECORDS SUMMARY | 2025-06-03 17:56 | XMS_ITS | Encounter Summary ---
Author Organization [facility] Address [address] [place] [address] Phone Care Team Providers Care Money Room Teller Name Role Phone Afua Leblanc CNP Primary Care Provider [phone] Reason for Visit * Reason Onset Date Comments VNA Update 05/28/2025 Encounter Details Date Type Department Care Team (Late st Contact Info) Description 05/28/2025 Telephone [employer] [facility] [address] [place], [place] [phone] Afua Leblanc CNP [address] [place], [place] [phone] [email or web address] VNA Update Social History Tobacco Use Types [...] you interested in more education? Not on kealyn e 12/16/2022 Are you concerned about learning? [...] Job End Date Retired, previously worked at [employer] Not on file Not on file Not on file documented as of this encounter Progress Notes * Rosy Vergara RN - 05/30/2025 9:00 AM EDT Spoke with Palmer. Reviewed medications. Unsure if patient is taking her medications regularly. States she saw her BP was a little high and told the patient's son to make sure the patient takes her medications. Advised patient and patient's son to do daily weights but is unsure if they will do this.Advised this nurse to call patient's son for post discharge and to make follow up appointment. M for Deandre to return call. * Kristen Baptiste - 05/28/2025 4:12 PM EDT [facility] called pt has been hospitalized VNA needs to do a medication verification, and restart services - Pt also needs PCP F/U Central Support Fishing Reel Assembler (Please do not reply to this user; this inbox is not monitored.) Thank you. documented in this encounter Plan of Treatment Upcoming Encounters Date Type Department Care Team (Late st Contact Info) Description 06/04/2025 12:30 AM EDT Home Care Visit [facility] [address] [place], [place] [phone] Natalie Watts [address] [place] [address] 06/06/2025 3:00 AM EDT Home Care Visit [facility] [address] [place], [place] [phone] Cee Peters RN [address] [place] [address] 06/09/2025 1:30 AM EDT Home Care Visit [facility] [address] [place] [address] Cee Peters RN [address] [place] [address] 06/11/2025 12:30 AM EDT Home Care Visit [facility] [address] [place] [address] Cee Peters RN [address] [place] [address] 06/13/2025 1:30 AM EDT Home Care Visit [facility] [address] [place] [phone] Cee Peters RN [address] [place] [address] 06/13/2025 3:00 PM EDT Office Visit [facility] [address] [place] [address] [address]rd Floor, [address] [place] [address] Sumaya Tompkins, [address] [address] 06/16/2025 12:30 AM EDT Home Care Visit [facility] [address] [place] [address] Cee Peters RN [address] [place] [address] 06/18/2025 12:30 AM EDT Home Care Visit [facility] [address] [place] [address] Cee Peters RN [address] [place] [address] 06/20/2025 1:00 AM EDT Home Care Visit [facility] [address] [place] [phone] Cee Peters RN [address] [place] [address] 06/23/2025 12:30 AM EST Home Care Visit [facility] [address] [place] [phone] Cee Peters RN [address] [place] [address] 06/25/2025 12:30 AM EST Home Care Visit [facility] [address] [place] [phone] Cee Peters RN [address] [place] [address] 06/27/2025 1:00 AM EST Home Care Visit [facility] [address] [place] [phone] Cee Peters RN [address] [place] [address] 06/30/2025 12:30 AM EST Home Care Visit [facility] [address] [place] [phone] Cee Peters RN [address] [place] [address] 07/02/2025 12:30 AM EST Home Care Visit [facility] [address] [place] [phone] Cee Peters RN [address] [place] [address] 07/04/2025 1:00 AM EST Home Care Visit [facility] [address] [place] [address] Cee Peters RN [address] [place] [address] 07/07/2025 12:30 AM EST Home Care Visit [facility] [address] [place] [address] Cee Peters RN [address] [place] [address] 07/09/2025 12:30 AM EST Home Care Visit [facility] [address] [place] [phone] Cee Peters RN [address] [place] [address] 07/11/2025 1:00 AM EST Home Care Visit [facility] [address] [place] [phone] Cee Peters RN [address] [place] [address] 07/14/2025 12:30 AM EST Home Care Visit [facility] [address] [place] [phone] Cee Peters RN [address] [place] [address] 07/16/2025 12:30 AM EST Home Care Visit [facility] [address] [place] [address] Cee Peters RN [address] [place] [address] 07/18/2025 1:00 AM EST Home Care Visit [facility] [address] [place] [address] Cee Peters RN [address] [place] [address] 07/21/2025 Appointment [facility] [address] [place] [phone] Cee Peters RN [address] [place] [address] 07/23/2025 Home Care Visit [facility] [address] [place] [address] Cee Peters RN [address] [place] [address] 07/25/2025 Home Care Visit [facility] [address] [place] [phone] Cee Peters RN [address] [place] [address] documented as of this encounter Goals Goal [...] documented as of this encounter Care Teams Money Room Teller Relationship Specialty Start Date End Date Afua Leblanc CNP [address] [place] [address], [address] [place] [address] [email or web address] PCP - General Nurse Practitioner 05/24/23 documented as of this encounter Additional Source Comments The information contained in this document represents components of the legal health record. It is not the complete legal health record.[facility]
--- OUTSIDE RECORDS SUMMARY | 2025-06-03 17:56 | XMS_ITS | Encounter Summary ---
Author Organization [facility] Address [address] [place] [address] Phone Care Team Providers Care Sixth Grade Teacher Name Role Phone [place], Una Aiken FOOD SAFETY OFFICER Primary Care Provider Jazmyn Anderson RN Unavailable [phone] Afua Leblanc FOOD SAFETY OFFICER Primary Care Provider Cayden Al MD Unavailable Marina Curry Unavailable karlo Encounter Details Date Type Department Care Team (Latest Contact Info) Description 01/03/2019 Ancillary [facility] [address] [place] [address] Travis Donald MD [address] [place] [address] [email or web address] SSS (sick sinus syndrome) Social History Tobacco Use Types Packs/Day Years [...] Visit [facility] [address] [place] [phone] Natalie Watts [address] [place] [address] 06/06/2025 3:00 AM EDT Home Care Visit [facility] [address] [place] [phone] Cee Peters RN [address] [place] [phone] 06/09/2025 1:30 AM EDT Home Care Visit [facility] [address] [place] [phone] Cee Peters RN [address] [place] [phone] 06/11/2025 12:30 AM EDT Home Care Visit [facility] [address] [place] [phone] Cee Peters RN [address] [place] [phone] 06/13/2025 1:30 AM EDT Home Care Visit [facility] [address] [place] [phone] Cee Peters RN [address] [place] [phone] 06/13/2025 3:00 PM EDT Office Visit [facility] [address] [place] [address] [address] Floor, [address] [place] [address] Leda Sumaya Jonas, DNP [address] [place] [phone] 06/16/2025 12:30 AM EDT Home Care Visit [facility] [address] [place] [phone] Cee Peters RN [address] [place] [phone] 06/18/2025 12:30 AM EDT Home Care Visit [facility] [address] [place] [phone] Cee Peters RN [address] [place] [address] 06/20/2025 1:00 AM EDT Home Care Visit [facility] [address] [place] [phone] Cee Peters RN [address] [place] [address] 06/23/2025 12:30 AM EST Home Care Visit [facility] [address] [place] [phone] Cee Peters RN [address] [place] [phone] 06/25/2025 12:30 AM EST Home Care Visit [facility] [address] [place] [phone] Cee Peetrs RN [address] [place] [id number] 06/27/2025 1:00 AM EST Home Care Visit [facility] [address] [place] [address] Cee Peters RN [address] [place] [address] 06/30/2025 12:30 AM EST Home Care Visit [facility] [address] [place] [phone] Cee Peters RN [address] [place] [id number] 07/02/2025 12:30 AM EST Home Care Visit [facility] [address] [place] [phone] Cee Peters RN [address] [place] [phone] 07/04/2025 1:00 AM EST Home Care Visit [facility] [address] [place] [phone] Cee Peters RN [address] [place] [phone] 07/07/2025 12:30 AM EST Home Care Visit [facility] [address] [place] [phone] Cee Peters RN [address] [place] [phone] 07/09/2025 12:30 AM EST Home Care Visit [facility] [address] [place] [phone] eCe Peters RN [address] [place] [address] 07/11/2025 1:00 AM EST Home Care Visit [facility] [address] [place] [phone] Cee Peters RN [address] [place] [address] 07/14/2025 12:30 AM EST Home Care Visit [facility] [address] [place] [phone] Cee Peters RN [address] [place] [address] 07/16/2025 12:30 AM EST Home Care Visit [facility] [address] [place] [phone] Cee Peters RN [address] [place] [phone] 07/18/2025 1:00 AM EST Home Care Visit [facility] [address] [place] [phone] Cee Peters RN [address] [place] [address] 07/21/2025 Appointment [facility] [address] [place] [phone] Cee Peters RN [address] [place] [address] 07/23/2025 Home Care Visit [facility] [address] [place] [address] Cee Peters RN [address] [place] [address] 07/25/2025 Home Care Visit [facility] [address] [place] [address] Cee Peters RN [address] [place] [phone] Pending Results Name Type Priority Associated Diagnoses Date /Time EP Device Check / Follow Up Cardiac Monitors Routine SSS (sick sinus syndrome) 01/09/2019 2:42 PM EDT Scheduled Orders Name Type Priority Associated Diagnoses Orde r Schedule EP Device Check / Follow Up Cardiac Monitors Routine SSS (sick sinus syndrome) Expected: 01/03/2019, Expires: 01/04/2020 documented as of this encounter Goals Goal Patient Goal Type Associated Problems Recent Progress Patient-Stated? Author Adhere to prescribed treatment plan Care Plan Chronic Condition Self-Management No Jazmyn Anderson RN Note: Barriers: No identified barriers Manage and adhere to medication treatment plan Care Plan Medication Management No Jazmyn Anderson RN Note: Barriers: No identified barriers documented as of this encounter Visit Diagnoses Diagnosis SSS (sick sinus syndrome) Sinoatrial node dysfunction documented in this encounter Additional Health Concerns [...] documented as of this encounter Care Teams Sixth Grade Teacher Relationship Specialty Start Date End Date Una Telles CNP [address] [place] [address], [address] [place] [address] PCP - General 06/08/17 05/23/23 Afua Leblanc CNP [address] [place] [address], [address] [place] [address] PCP - General Nurse Practitioner 05/24/23 Jazmyn Anderson, JULY [address] [place] [address] [email or web address] Sr. Strategic Sourcing Manager 05/30/18 03/07/19 Cayden Al MD [address] [place] [address], [address] [place] [address] [email or web address] Insurance Assigned Provider 11/25/23 08/26/24 Marina Curry [address] [place] [address] [email or web address] PHCM Community Video Journalist 12/30/24 12/30/24 documented as of this encounter Additional Source Comments The information contained in this document represents components of the legal health record. It is not the complete legal health record.[facility]
--- OUTSIDE RECORDS SUMMARY | 2025-06-03 17:56 | XMS_ITS | Clinical Summary ---
Author Organization Formerly [facility] Address [address] [facility] [address] [place] [phone] Phone Care Team Providers Care Lean Manufacturing Engineer Name Role Phone Afua Leblanc SHERLY Primary Care Provider Allergies Active Allergy Reactions Criticality Noted Date Comments Penicillins Rash,Unknown Medium 11/01/2017 Medications blood-glucose meter (FREESTYLE LITE METER) kitIndications:DM type 2, uncontrolled, with neuropathy Check blood sugar 3 times daily 90 each 11 2017 Active aspirin 81 mg chewable tabletIndications:Elle pheral arterial disease Take 1 tablet (81 mg total) by mouth daily. 90 tablet 3 2020 Active pen needle, diabetic 31 gauge x 15/64 NdleIndications:Diabet ic retinopathy associated with type 2 diabetes mellitus, macular edema presence unspecified, unspecified laterality, unspecified retinopathy severity USE 4 TIMES DAILY 100 each 2021 Active lancets (FREESTYLE) 28 gauge MiscIndications:Poorly controlled type 2 diabetes mellitus with neuropathy USE TO CHECK GLUCOSE THREE TIMES DAILY 100 each 3 2022 Active NOVOFINE AUTOCOVER 30 gauge x 1/3 Ndle USE 1 UNIT 4 TIMES DAILY 100 each 2023 Active insulin pen needles, disposable, (BD MARILOU 2ND GEN PEN NEEDLE) 32 gauge x 5/32 Ndle Inject 1 each under the skin 4 (four) times a day. 400 each 3 2024 Active NIFEdipine (ADALAT CC) 60 MG 24 hr tabletIndications:HTN (hypertension),Congest christi heart failure, unspecified HF chronicity, unspecified heart failure type Take 1 tablet (60 mg total) by mouth nightly at bedtime. 90 tablet 1 2024 Active hydrALAZINE (APRESOLINE) 100 MG tabletIndications:Andi estive heart failure, unspecified HF chronicity, unspecified heart failure type Take 1 tablet (100 mg total) by mouth 3 (three) times a day. 270 tablet 1 2024 Active carvedilol (COREG) 25 MG tablet Take 1 tablet (25 mg total) by mouth 2 (two) times a day with meals. 180 tablet 1 2024 Active isosorbide mononitrate (IMDUR) 60 MG 24 hr tablet Take 1 tablet (60 mg total) by mouth daily. 90 tablet 2 2024 Active empagliflozin (JARDIANCE) 10 mg tablet Take 1 tablet (10 mg total) by mouth daily. 90 tablet 2 2024 Active FREESTYLE LITE Strp stripsIndications:Poor ly controlled type 2 diabetes mellitus with neuropathy 1 each by Percutaneous route 3 (three) times a day before meals. DX: E11.29 300 strip 3 2024 Active clopidogrel (PLAVIX) 75 mg tablet TAKE 1 TABLET BY MOUTH IN THE MORNING 90 tablet 2024 Active NONA-MONIQUE RX 1-60-300 mg-mg-mcg TabIndications:CKD stage 4 secondary to hypertension Take 1 tablet by mouth once daily 30 tablet 2024 Active torsemide (DEMADEX) 20 MG tablet Take 2 tablets (40 mg total) by mouth daily. 60 tablet 2024 Active insulin glargine (LANTUS) 100 unit/mL injection vial Inject 5 Units under the skin nightly at bedtime. 1.5 mL 2 08/27 Active miscellaneous medical supply Misc Gel locking liner 1 mL 05/16 Discontinued ketoconazole 2 % cream Apply topically daily. Apply between the affected toes as directed once daily 15 g 1 05/16 Discontinued atorvastatin (LIPITOR) 40 MG tabletIndications:Pure hypercholesterolemia Take 1 tablet by mouth once daily 90 tablet 3 05/16 Discontinued lactobacillus rhamnosus, GG, (CULTURELLE) 10 billion cell capsule Take 1 capsule by mouth nightly at bedtime. 30 capsule 1 05/16 Discontinued melatonin 3 mg Tab Take 6 mg by mouth nightly at bedtime. 05/16 Discontinued docusate sodium (COLACE) 100 MG capsule Take 100 mg by mouth 2 (two) times a day as needed for mild constipation or moderate constipation. 05/16 Discontinued pantoprazole (PROTONIX) 40 MG tablet Take 1 tablet (40 mg total) by mouth daily. 90 tablet 1 05/16 Discontinued amLODIPine (NORVASC) 2.5 MG tabletIndications:HTN (hypertension) Take 1 tablet (2.5 mg total) by mouth daily. 90 tablet 1 05/27 Discontinued( Stop Taking at Discharge) vitamin B cmplex 2-SB-B-biotin (NEPHRO-MONIQUE RX) 1-60-300 mg-mg-mcg TabIndications:CKD stage 4 secondary to hypertension [The details of the medication are not available because there are pending changes by a home health clinician.] 30 tablet 05/12 Discontinued bumetanide (BUMEX) 1 MG tablet Take 1 tablet (1 mg total) by mouth 2 (two) times a day. 180 tablet 2 05/27 Discontinued( Stop Taking at Discharge) insulin aspart (FIASP FLEXTOUCH U-100 INSULIN) 100 unit/mL (3 mL) injection penIndications:Type II diabetes mellitus with peripheral circulatory disorder INJECT 12 UNITS SUBCUTANEOUSLY THREE TIMES DAILY WITH MEALS 15 mL 05/27 Discontinued( Stop Taking at Discharge) NOVOLOG FLEXPEN U-100 INSULIN 100 unit/mL (3 mL) flexpenIndications:Typ e 2 diabetes mellitus with diabetic peripheral angiopathy without gangrene INJECT 12 UNITS SUBCUTANEOUSLY 3 TIMES DAILY WITH MEALS 15 mL 05/165 Discontinued BASAGLAR KWIKPEN U-100 INSULIN 100 unit/mL (3 mL) InPn injection pen Inject 100 Units under the skin nightly at bedtime. 45 mL 1 05/27 Discontinued( No longer taking) insulin degludec U-100 (TRESIBA) injection pen Inject 100 Units under the skin nightly at bedtime. 90 mL 05/27 Discontinued( No longer taking) insulin glargine 100 unit/mL (3 mL) InPn injection pen Inject 20 Units under the skin nightly at bedtime. 05/27 Discontinued( No longer taking) BASAGLAR KWIKPEN U-100 INSULIN 100 unit/mL (3 mL) InPn injection pen Inject 20 Units under the skin nightly at bedtime. 05/27 Discontinued( Stop Taking at Discharge) BASAGLAR KWIKPEN U-100 INSULIN 100 unit/mL (3 mL) InPn injection pen Inject 5 Units under the skin nightly at bedtime. 3 mL 05/29 Discontinued( Other) insulin glargine (LANTUS) 100 unit/mL injection vial Inject 20 Units under the skin nightly at bedtime. 6 mL 2 05/29 Discontinued( Error) Active Problems Problem Noted Date Diagnosed Date [...] -On discharge to follow-up with her outpatient [facility]. Assessment & Plan (05/26/2025 12:55 PM EDT): Noted to have stage IV CKD, baseline Cr 2.7 from diabetic nephropathy. At presentation creatinine is 3.9, up trended with diuresis to 4.8 no back down to prior levels. Her PCP notes indicates she follows both with nephrology and endocrinology at [facility] - renal u/s no hydronephrosis, no stones - Neprhology following - Lokelma for K > 5.4 - Will need outpatient follow up with [facility] Assessment & Plan (05/26/2025 10:37 [...] -On discharge to follow-up with her outpatient [facility]. Assessment & Plan (05/25/2025 3:57 PM EDT): Noted to have stage IV CKD, at presentation creatinine is 3.9, higher than previous of 2.7 documented in September Her PCP notes indicates she follows both with nephrology and endocrinology at [facility] - renal u/s no hydronephrosis, no [...] follows both with nephrology and endocrinology at [facility] Will need very close monitoring of [...] follows both with nephrology and endocrinology at [facility] Will need very close monitoring of [...] follows both with nephrology and endocrinology at [facility] Will need very close monitoring of [...] follows both with nephrology and endocrinology at [facility] Will need very close monitoring of [...] follows both with nephrology and endocrinology at [facility] Will need very close monitoring of [...] follows both with nephrology and endocrinology at [facility] Will need very close monitoring of [...] follows both with nephrology and endocrinology at [facility] Will need very close monitoring of [...] follows both with nephrology and endocrinology at [facility] Will need very close monitoring of [...] follows both with nephrology and endocrinology at [facility] We will consult our electronics inspector while she is here, diurese as above [...] SOB, CP, or dizziness. Referral placed to [facility] cardiology. Assessment & Plan (09/24/2024 12:36 PM [...] - monitor SPO2 - continue diuresis -Consulting electronics inspector as above -Sodium restriction and education DM [...] for osteomyelitis of the right foot in [facility] 08/2023. After surgery she was in a [facility] until mid January, and has been at [...] this was arranged during her hospitalization at [facility]) Assessment & Plan (04/04/2024 12:45 PM EDT): [...] wound care. I have advised they need [facility] involved again and they are [...] Overview (11/03/2022): She follows with vascular at [facility]. She refused revascularization. Assessment & Plan (11/03/2022 1:16 PM EDT): We discussed risks leading to need for another amputation. She is adamant that she will not undergo revascularization, nor which she agreed to another amputation Her son and a Irish burn out scarfing operator were present during this conversation Hyperkalemia 09/20/2021 [...] if K rises above 5.4 as per electronics inspector - continue tele monitoring - EKG - [...] left left stump wound See by wound lead level designer & Plan (05/20/2025 6:58 PM EDT): The [...] left left stump wound See by wound lead level designer & Plan (05/19/2025 5:11 PM EDT): The [...] left left stump wound See by wound lead level designer & Plan (05/18/2025 4:47 PM EDT): The [...] Patient states she has not seen an washhouse hand recently She has a diabetic foot wound on the right and we will consult wound nurse Assessment & Plan (12/28/2024 10:18 PM EDT): She reports she has mostly remained compliant with insulin. She is following with diabetes and nephrology at [facility]. Again, discussed we are not receiving records from them. Her son will obtain these records and have them sent to us. Continues to follow with [facility] for wound care. Assessment & Plan (09/24/2024 10:45 AM EST): Glucose appears to be labile, some hyperglycemia noted in the past, overnight however appears very well-controlled, she had episode of hypoglycemia this morning and 2/4. Suspect her diet is not as strict [...] ophthalmology and book appt w [facility] or [facility] endocrinology Assessment & Plan (09/30/2020 10:18 AM EST): S/p left BKA. Her blood sugar is uncontrolled. She is following w vascular doctor outside of [facility] Status post unilateral below knee amputation, le [...] Plan (10/21/2024 3:07 PM EST): Scheduled with [facility] 11/14. Assessment & Plan (09/24/2024 12:36 [...] as directed. She is due for Medicare [id number] with new PCP in 3 months. Assessment [...] insulins as prescribed and recommend she see legal contracts specialist Assessment & Plan (09/28/2022 1:36 PM [...] her know that I will be leaving [facility] so this is more reason for her [...] have offered her referral several times to washhouse hand or [facility] education [...] not believe she is capable of learning Maltese or learning to read at this point [...] non healing wound & gangrene Dr Puentes [facility] Assessment & Plan (11/03/2022 1:12 PM EDT): [...] is following w vascular doctor outside of [facility] Assessment & Plan (05/29/2018 8:51 PM EDT): [...] not like side effects from multiple medications surveillance monitor Echo-showed decrease in ejection fraction 30 [...] not like side effects from multiple medications surveillance monitor Echo-showed decrease in ejection fraction 30 [...] not like side effects from multiple medications surveillance monitor Echo Follow BMP closely It looks [...] been discussed in the past with her electronics inspector, details unknown. Staging of the later stages [...] failure-doubled creatinine-GFR is 20. She sees Dr. Bill-electronics inspector in [place]. I called the phone number to talk with him but there was no answer-I left a voicemail. She was very adamant at the start of this visit that she did not want to go to the emergency room as she does not want to be admitted. I called her electronics inspector office as she notes that she would [...] Diff to her daughter. I gave them [facility] phone number. I think it would be best for her to get on that plan & get a window caser. I talked to son & afterwards to [...] my nurse to call over to the [facility] to get her established as [...] secondary to this infection. Her daughter and Belkys both understand and agree with this plan. [...] form was completed appropriately. I had the burn out scarfing operator re-sign and their copy today. Hyperglycemia 08/01/2018 Acute kidney injury 05/24/20 20 Assessment & Plan (08/01/2018 9:13 PM EST): Labs received after her visit. Nurses instructed to call patient and have her hold lisinopril/HCTZ, use insulin and increase water intake. metformin was stopped today. She will recheck labs in 2 days. She was referred to nephrology Encounters Date Type Department Care Team Description 06/02/2025 12:30 PM EDT [facility] [address] [place] [phone] Rebecca Peters RN SN HOME VISIT 05/30/2025 Home Care Visit [facility] [address] [place], [place] [phone] Palmer Adams, RN CASE COMMUNICATION 05/30/2025 [facility] Visit [facility] [address] [place] [address] Natalie Watts EMERGENCY PHYSICIAN HOME VISIT 05/29/2025 Orders Only [facility] Medicine Virtual Department [address] [place] [phone] Altagracia Fisher MD 05/28/2025 10:15 AM EDT [facility] [address] [place] [address] Palmer Adams RN SN OASIS START OF CARE (SOC) 05/28/2025 Telephone [facility] [address] [address] Afua Leblanc CNP [facility] Update 05/28/2025 Plan of Care Documentation [facility] [address] [place] [address] 05/23/2025 Home Care Visit [facility] [address] [place] [address] Rebecca Peters RN SN NON OASIS DISCHARGE NON VISIT/TELEPHONE 05/23/2025 Orders Only [facility] [address] [place] [address] Homehealth, Bushra Uribe MD 05/18/2025 Home Care Visit [facility] [address] [place] [address] Rebecca Peters, JULY SN OASIS TRANSFER 05/16/2025 3:06 PM EDT - 05/27/2025 5:14 PM EDT Hospital Encounter [facility] [address] [place], [place] [phone] Rafael Fay MD Wong, MD Mariia Guerin, MD Romain Rios Glenn E, MD Grachev, Gerry, DO Discharge Disposition: [facility]-Health Care [facility] 05/16/2025 Procedure Pass [facility] [address] [place] [address] 05/12/2025 1:00 PM EDT [facility] [address] [place] [address] Rebecca Peters, RN SN HOME VISIT 05/12/[address] [address] Afua Leblanc CNP FYI (Rebecca went in to change the pt wound, and notice pt face is swollen pt seems to be confused, BP is 140/100 pt refused to go to ED, pt is not taken meds correctly. Best call back number [phone]) 05/11/2025 Home Care Visit [facility] [address] [place] [address] Chen Shelton, RN TELEPHONE ENCOUNTER 05/10/2025 Home Care Visit [facility] [address] [place] [address] La Nena Chanel, JULY TELEPHONE ENCOUNTER 05/10/[address] [address] Afua Leblanc CNP Medication Refill 05/06/2025 11:30 AM EDT Home [facility] Visit [facility] [address] [place] [address] Ruby Bravo, RN SN HOME VISIT 05/06/[address] [address] Afua Leblanc CNP [facility] Update 04/28/2025 2:30 PM EDT [facility] Visit [facility] [address] [place] [address] Rebecca ePters, RN SN HOME VISIT 04/22/2025 1:00 PM EDT [facility] [address] [place] [phone] Rebecca Peters RN SN HOME VISIT 04/14/2025 12:30 PM EDT Home [facility] Visit [facility] [address] [place] [phone] Palmer Adams RN SN HOME VISIT 04/10/2025 Orders Only [address] [address] Provider, MD Liudmila 04/07/2025 1:30 AM EDT Home [facility] Visit [facility] [address] [place] [phone] Natalie Watts LPN HOME VISIT 04/04/2025 Episode Documentation Update [facility] [address] [place] [phone] Ania Diamond 04/01/2025 10:00 AM EDT Home [facility] Visit [facility] [address] [place] [address] Rebecca Peters RN SN HOME VISIT 03/27/[address] [address] Afua Leblanc CNP Medication Refill (BASAGLAR KWIKPEN U-100 INSULIN 100 unit/mL (3 mL) InPn injection pen the insurance does not cover this medication,pharmacis t recommends the following medication,/Inslin/y sgn & insulin Degludec please fax prescription to fax # [phone] contact and advise. /) 03/27/[address] [address] Shabnam Baptiste [place] Medication Refill 03/24/2025 12:30 PM EDT Home Care Visit [facility] [address] [place] [phone] Rebecca Peters, JULY SN OASIS RECERTIFICATION/FUP 03/24/2025 Plan of Care Documentation [facility] [address] [place] [phone] 03/19/2025 Telephone [facility] [address] [place], [place] [phone] Shabnam Baptiste [place] 03/18/2025 1:00 PM EDT Home Care Visit [facility] [address] [place] [phone] Rebecca Peters, JULY SN HOME VISIT 03/18/[address] [phone] Phyllis Brantley PA-C Medication Refill 03/18/[address] [phone] Afua Leblanc CNP VNA Update 03/03/2025 Home Care Visit [facility] [address] [place] [phone] Natalie Watts LPN HOME VISIT from Last 3 Months Immunizations Immunization Administration Dates Next Due INFLUENZA, SPLIT VIRUS, TRIV ALENT W/ PRESERVATIVE IM 05/21/2016 Influenza High-Dose Quadriva lent Preservative Free IM 09/28/2022,06/08/2020 Influenza High-Dose Trivalen t Preservative Free IM 05/30/2018,07/18/2017,05/26/2016 Pneumococcal conjugate PCV13 07/18/2017 Pneumococcal polysaccharide PPSV23 08/01/2018 Tdap 09/03/2015 Family History Medical History Relation Comments No Known Problems Daughter No Known Problems Father No Known Problems Mother No Known Problems Son 1 No Known Problems Son 2 Relation Status Comments Daughter Father Mother Son 1 Son 2 Social History Tobacco Use Types Packs/Day Years Used Date Smoking Tobacco: Never Smokeless Tobacco: Never Tobacco Cessation:Counseling Given: Not Answered Alcohol Use Standard Drinks/Week Comments Not Currently [...] Job End Date Retired, previously worked at [employer] Not on file Not on file Not on file Last Filed Vital Signs Vital Sign Reading Time Taken Comments Blood Pressure 130/80 06/02/2025 11:32 AM EDT Pulse 62 06/02/2025 11:32 AM EDT Temperature 36.3 C (97.4 F) 06/02/2025 11:32 AM EDT Respiratory Rate 16 06/02/2025 11:32 AM EDT Oxygen Saturation 96% 06/02/2025 11:32 AM EDT Inhaled Oxygen Concentration - - Weight 67.4 kg (148 lb 9.4 oz) 05/27/2025 5:22 A M EDT Height 167.6 cm (5' 6 ) 05/26/2025 5:56 AM EDT Body Mass Index 23.98 05/26/2025 5:56 AM EDT Plan of Treatment Upcoming Encounters Date Type Department Care Team (Late st Contact Info) Description 06/04/2025 12:30 AM EDT Home [facility] Visit [facility] [address] [place] [address] Natalie Watts [address] [place] [address] 06/06/2025 3:00 AM EDT Home Care Visit [facility] [address] [place] [address] Rebecca Peters RN [address] [place] [address] 06/09/2025 1:30 AM EDT Home [facility] Visit [facility] [address] [place] [address] Rebecca Peters RN [address] [place] [address] 06/11/2025 12:30 AM EDT Home [facility] Visit [facility] [address] [place] [phone] Rebecca Peters RN [address] [place] [address] 06/13/2025 1:30 AM EDT Home [facility] Visit [facility] [address] [place] [phone] Rebecca Peters RN [address] [place] [address] 06/13/2025 3:00 PM EDT Office Visit [facility] [address] [place] [address] [address] Floor, [address] [place] [address] Sumaya Tompkins, [address] [address] 06/16/2025 12:30 AM EDT Home Care Visit [facility] [address] [place] [phone] Rebecca Peters RN [address] [place] [address] 06/18/2025 12:30 AM EDT Home Care Visit [facility] [address] [place] [phone] Rebecca Peters RN [address] [place] [address] 06/20/2025 1:00 AM EDT Home [facility] Visit [facility] [address] [place] [phone] Rebecca Peters RN [address] [place] [address] 06/23/2025 12:30 AM EST Home [facility] Visit [facility] [address] [place] [phone] Rebecca Peters RN [address] [place] [address] 06/25/2025 12:30 AM EST [facility] [address] [place] [phone] Rebecca Peters RN [address] [place] [address] 06/27/2025 1:00 AM EST Home [facility] Visit [facility] [address] [place] [phone] Rebecca Peters RN [address] [place] [address] 06/30/2025 12:30 AM EST [facility] Visit [facility] [address] [place] [phone] Rebecca Peters RN [address] [place] [address] 07/02/2025 12:30 AM EST Home [facility] [address] [place] [phone] Rebecca Peters RN [address] [place] [address] 07/04/2025 1:00 AM EST Home [facility] Visit [facility] [address] [place] [phone] Rebecca Peters RN [address] [place] [address] 07/07/2025 12:30 AM EST Home [facility] [address] [place] [phone] Rebecca Peters RN [address] [place] [address] 07/09/2025 12:30 AM EST [facility] [address] [place] [phone] Rebecca Peters RN [address] [place] [address] 07/11/2025 1:00 AM EST Home [facility] [address] [place] [phone] Rebecca Peters RN [address] [place] [address] 07/14/2025 12:30 AM EST [facility] [address] [place] [phone] Rebecca Peters RN [address] [place] [address] 07/16/2025 12:30 AM EST [facility] [address] [place] [phone] Rebecca Peters RN [address] [place] [address] 07/18/2025 1:00 AM EST [facility] [address] [place] [phone] Rebecca Peters RN [address] [place] [address] 07/21/2025 Appointment [facility] [address] [place] [phone] Rebecca Peters RN [address] [place] [address] 07/23/2025 Home Care Visit [facility] [address] [place] [phone] Rebecca Peters RN [address] [place] [address] 07/25/2025 Home Care Visit [facility] [address] [place] [phone] Rebecca Peters RN [address] [place] [address] Health Maintenance Due Date Last Done Comments COLOGUARD 12/03/1995 COLONOSCOPY 12/03/1995 COLORECTAL CANCER SCREENING 12/03/1995 FIT TEST 12/03/1995 FOBT 12/03/1995 SIGMOIDOSCOPY 12/03/1995 VIRTUAL COLONOSCOPY 12/03/1995 RSV VACCINE (1 - Risk 50-74 years 1-dose series) 2000 ZOSTER VACCINES (1 of 2) 2000 OSTEOPOROSIS SCREENING INITIAL (ONE-TIME) 12/03/2015 MAMMOGRAM 08/02/2018 08/02/2016 DIABETIC EYE EXAM 10/30/2024 10/31/2023 INFLUENZA VACCINE (#1) 2025 , 06/08/2020, 05/30/2018, Additional history exists LIPID PANEL 04/03/2025 04/03/2024, 0301/2023, 06/08/2020, Additional history exists COVID-19 VACCINE ( season) 2025 HEMOGLOBIN A1C 08/16/2025 05/17/2025, 02/0 11/2024, 04/03/2024, Additional history exists Adult Td,Tdap Booster 09/03/2025 09/03/2015 BLOOD PRESSURE 12/01/2025 06/02/2025 DEPRESSION SCREENING 12/27/2025 12/27/2024 PNEUMOCOCCAL VACCINES (50+ years) Completed 08/01/2018, 07/18/2017 HEPATITIS C SCREENING Completed 09/23/2024, 016 SMOKING STATUS SCREENING (Once After 26 Yrs) Completed 05/16/2025 HEPATITIS A VACCINES Aged Out No long er eligible based on patient's age to complete this topic HIB VACCINES Aged Out No longer eligi ble based on patient's age to complete this topic MENINGOCOCCAL VACCINES (ACWY) Aged Out No longer eligible based on patient's age to complete this topic MENINGOCOCCAL VACCINES (B) Aged Out N o longer eligible based on patient's age to complete this topic Goals Goal Patient Goal Type Associated Problems Recent Progress Patient-Stated? Author Adhere to prescribed treatment plan Care Plan Chronic Condition Self-Management No Jazmyn Anderson RN Note: Barriers: No identified barriers Manage and adhere to medication treatment plan Care Plan Medication Management No Jazmyn Anderson RN Note: Barriers: No identified barriers Medical Devices Implanted Type Area Switch Repairer Device Identifier Shelf Expiration Date Model / Serial / Lot Lead Pacemaker Capsure Fix Novus Is-1 Bi Atr/Vntr Evelyne 52 Cm - [id number] Implanted:Qt y: 1 on 09/05/2018 by Matteo Rodriguez MD at [facility] Lead Left: Right Ventricle [employer] [id number] 06/21/2020 5076-52 / [id number] 15 / Lead Pacemaker Capsure Fix Novus Is-1 Bi Atr/Vntr Evelyne 45 Cm - [id number] Implanted:Qt y: 1 on 09/05/2018 by Matteo Rodriguez MD at [facility] Lead Left: Atrium [employer] 06/21/2020 5076-45 / [id number] 15 / Device Pacemaker Winding Cypress Xt Dr Crane - [id number] Implanted:Qt y: 1 on 09/05/2018 by Matteo Rodriguez MD at [facility] Pacemaker Left: Chest Wall [employer] [id number] 01/16/2020 [id number] / [id number] / Procedures Procedure Name Priority Date/Time Associated Diagnosis Comments POCT GLUCOSE Routine 05/27/2025 11:58 AM EDT POCT GLUCOSE Routine 05/27/2025 8:02 AM EDT PHOSPHORUS Routine 05/27/2025 5:35 AM EDT MAGNESIUM Routine 05/27/2025 5:35 AM EDT COMPREHENSIVE METABOLIC PANEL Routine 05/27/2025 5:35 AM EDT CBC Routine 05/27/2025 5:35 AM EDT POCT GLUCOSE Routine 05/26/2025 8:08 PM EDT POCT GLUCOSE Routine 05/26/2025 4:50 PM EDT POCT GLUCOSE Routine 05/26/2025 11:41 AM EDT PHOSPHORUS STAT 05/26/2025 7:48 AM EDT MAGNESIUM STAT 05/26/2025 7:48 AM EDT CBC STAT 05/26/2025 7:48 AM EDT BASIC METABOLIC PANEL STAT 05/26/2025 7:48 AM EDT POCT GLUCOSE Routine 05/26/2025 7:38 AM EDT POCT GLUCOSE Routine 05/25/2025 7:25 PM EDT POCT GLUCOSE Routine 05/25/2025 4:45 PM EDT SODIUM, RANDOM URINE Routine 05/25/2025 12:09 PM EDT POCT GLUCOSE Routine 05/25/2025 11:52 AM EDT XR CHEST PA AND LATERAL 2 VIEWS Routine 05/25/2025 11:18 AM EDT POCT GLUCOSE Routine 05/25/2025 7:31 AM EDT CORTISOL AM Routine 05/25/2025 6:05 AM EDT OSMOLALITY, SERUM Routine 05/25/2025 6:05 AM EDT BASIC METABOLIC PANEL Routine 05/25/2025 6:05 AM EDT POCT GLUCOSE Routine 05/24/2025 7:16 PM EDT POCT GLUCOSE Routine 05/24/2025 4:27 PM EDT OSMOLALITY (URINE, RANDOM) Routine 05/24/2025 12:37 PM EDT POCT GLUCOSE Routine 05/24/2025 11:51 AM EDT POCT GLUCOSE Routine 05/24/2025 7:36 AM EDT OSMOLALITY, SERUM Routine 05/24/2025 5:33 AM EDT BASIC METABOLIC PANEL Routine 05/24/2025 5:33 AM EDT POCT GLUCOSE Routine 05/23/2025 7:57 PM EDT POCT GLUCOSE Routine 05/23/2025 4:22 PM EDT POCT GLUCOSE Routine 05/23/2025 12:22 PM EDT BASIC METABOLIC PANEL STAT 05/23/2025 10:52 AM EDT POCT GLUCOSE Routine 05/23/2025 8:03 AM EDT CBC Routine 05/23/2025 5:19 AM EDT POCT GLUCOSE Routine 05/22/2025 7:59 PM EDT POCT GLUCOSE Routine 05/22/2025 5:00 PM EDT POCT GLUCOSE Routine 05/22/2025 1:04 PM EDT BASIC METABOLIC PANEL Routine 05/22/2025 12:45 PM EDT NC MYOCARDIAL PERFUSION PHARMACOLOGIC STRESS MULTIPLE Routine 05/22/2025 12:36 PM EDT Chest pain on breathing NC100 (TECH ORDER ONLY) NC STRESS TEST WITH NUCLEAR IMAGING Routine 05/22/2025 11:29 AM EDT Chest pain on breathing XR CHEST 1 VIEW Imaging in AM 05/22/2025 8:33 AM EDT POCT GLUCOSE Routine 05/22/2025 7:29 AM EDT BASIC METABOLIC PANEL Routine 05/22/2025 6:03 AM EDT POCT GLUCOSE Routine 05/21/2025 8:12 PM EDT POCT GLUCOSE Routine 05/21/2025 4:30 PM EDT POCT GLUCOSE Routine 05/21/2025 11:34 AM EDT POCT GLUCOSE Routine 05/21/2025 7:34 AM EDT BASIC METABOLIC PANEL Routine 05/21/2025 5:58 AM EDT CBC AND DIFFERENTIAL Routine 05/21/2025 5:58 AM EDT POCT GLUCOSE Routine 05/20/2025 7:53 PM EDT POCT GLUCOSE Routine 05/20/2025 5:17 PM EDT POCT GLUCOSE Routine 05/20/2025 4:44 PM EDT POCT GLUCOSE Routine 05/20/2025 11:53 AM EDT POCT GLUCOSE Routine 05/20/2025 7:33 AM EDT BASIC METABOLIC PANEL Routine 05/20/2025 5:26 AM EDT CBC AND DIFFERENTIAL Routine 05/20/2025 5:26 AM EDT POCT GLUCOSE Routine 05/19/2025 7:19 PM EDT POCT GLUCOSE Routine 05/19/2025 4:49 PM EDT POCT GLUCOSE Routine 05/19/2025 11:33 AM EDT POCT GLUCOSE Routine 05/19/2025 7:28 AM EDT COMPREHENSIVE METABOLIC PANEL Routine 05/19/2025 5:52 AM EDT CBC AND DIFFERENTIAL Routine 05/19/2025 5:52 AM EDT POCT GLUCOSE Routine 05/18/2025 8:01 PM EDT POCT GLUCOSE Routine 05/18/2025 4:51 PM EDT POCT GLUCOSE Routine 05/18/2025 12:00 PM EDT US KIDNEYS Routine 05/18/2025 10:06 AM EDT POCT GLUCOSE Routine 05/18/2025 7:51 AM EDT COMPREHENSIVE METABOLIC PANEL Routine 05/18/2025 7:26 AM EDT CBC AND DIFFERENTIAL Routine 05/18/2025 7:26 AM EDT POCT GLUCOSE Routine 05/18/2025 3:53 AM EDT POCT GLUCOSE Routine 05/18/2025 3:01 AM EDT MAGNESIUM STAT 05/18/2025 1:56 AM EDT BASIC METABOLIC PANEL STAT 05/18/2025 1:56 AM EDT BASIC METABOLIC PANEL Timed 05/17/2025 8:17 PM EDT POCT GLUCOSE Routine 05/17/2025 7:57 PM EDT POCT GLUCOSE Routine 05/17/2025 4:35 PM EDT COVID PANDEMIC RESPIRATORY VIRAL ORDER (PRO) STAT 05/17/2025 3:23 PM EDT POCT GLUCOSE Routine 05/17/2025 11:56 AM EDT TTE COMPREHENSIVE Routine 05/17/2025 9:21 AM EDT Acute heart failure, unspecified heart failure type POCT GLUCOSE Routine 05/17/2025 7:59 AM EDT OSMOLALITY, SERUM Routine 05/17/2025 6:44 AM EDT HEMOGLOBIN A1C Routine 05/17/2025 6:44 AM EDT COMPREHENSIVE METABOLIC PANEL Routine 05/17/2025 6:44 AM EDT CBC AND DIFFERENTIAL Routine 05/17/2025 6:44 AM EDT OSMOLALITY (URINE, RANDOM) Routine 05/17/2025 5:56 AM EDT SODIUM, RANDOM URINE Routine 05/17/2025 5:56 AM EDT POCT GLUCOSE Routine 05/16/2025 8:02 PM EDT IP CONSULT TO WOUND NURSE Routine 05/16/2025 7:56 PM EDT XR CHEST PORTABLE Routine 05/16/2025 4:22 PM EDT COVID PANDEMIC RESPIRATORY VIRAL ORDER (PRO) STAT 05/16/2025 3:38 PM EDT TROPONIN STAT 05/16/2025 3:37 PM EDT MAGNESIUM STAT 05/16/2025 3:37 PM EDT LFTS (HEPATIC PANEL) STAT 05/16/2025 3:37 PM EDT NT-PROBNP STAT 05/16/2025 3:37 PM EDT ECG 12-LEAD STAT 05/16/2025 3:23 PM EDT TROPONIN STAT 05/16/2025 3:19 PM EDT BASIC METABOLIC PANEL STAT 05/16/2025 3:19 PM EDT CBC AND DIFFERENTIAL STAT 05/16/2025 3:19 PM EDT OUTSIDE LAB Routine 04/10/2025 11:25 AM EDT HEPATITIS C ANTIBODY, QUALITATIVE STAT 09/23/2024 4:12 AM EST LIPID PANEL Routine 04/03/2024 2:25 PM EDT Pure hypercholesterolemia from Last 3 Months or Most Recently Relevant to Health Maintenance Results * (ABNORMAL) POCT Glucose (05/27/2025 11:58 AM EDT) Only the most recent of46 resultswithin the time period is included. Glucose, POCT 152(H) 70 - 100 mg/dL [facility] 05/27/2025 11:5 8 AM EDT 05/27/2025 12:00 PM EDT us Freddie Hoyos MD POINT OF CARE TEST ORDERABL ES Final Result Performing Organization Address City/State/[facility] Co de Phone Number [facility] [address] [place] [address] * (ABNORMAL) Comprehensive metabolic panel (05/27/2025 5:35 AM EDT) Only the most recent of4 resultswithin the time period is included. SODIUM 129(L) 133 - 146 mmol/L [facility] POTASSIUM 4.9 3.3 - 5.1 mmol/L [facility] CHLORIDE 94(L) 96 - 108 mmol/L [facility] CO2 23 21 - 35 mmol/L [facility] BUN 64(H) 6 - 19 mg/dL [facility] CREATININE 3.80(H) 0.5 - 1.5 mg/dL [facility] GLUCOSE 137(H) 70 - 99 mg/dL [facility] ALBUMIN 3.5(L) 3.9 - 4.8 g/dL [facility] TOTAL PROTEIN 7.3 6.5 - 8.0 g/dL [facility] CALCIUM 9.2 8.4 - 10.3 mg/dL [facility] ALKALINE PHOSPHATASE 74 39 - 117 U/L [facility] TOTAL BILIRUBIN 0.3 0.0 - 1.2 mg/dL [facility] AST 22 0 - 37 U/L [facility] ALT 23 0 - 40 U/L [facility] GLOBULIN 3.8 1 - 4.8 g/dL [facility] EGFR 12(L) >59 mL/min/1.7 3m2 [facility] Comment:Estimated glomerular filtration rate calculated using the CKD-EPI refit equation. ANION GAP 17 10 - 20 mmol/L [facility] Blood 05/27/2025 5:35 AM EDT 05/27/2025 5:49 AM EDT us Izabela Jean NP LAB BLOOD ORDERABLES Fin al Result Performing Organization Address City/State/[place] de Phone Number [address] [address] * (ABNORMAL) CBC (05/27/2025 5:35 AM EDT) Only the most recent of3 resultswithin the time period is included. WBC 3.35(L) 4.00 - 11.00 K/uL [facility] RBC 3.72(L) 4.00 - 5.20 M/uL [facility] HGB 9.9(L) 12.0 - 16.0 g/dL [facility] HCT 30.4(L) 36.0 - 46.0 % [facility] PLT 232 150 - 450 K/uL [facility] MCV 81.7 80.0 - 100.0 fL [facility] MCH 26.6(L) 27.0 - 31.0 pg [facility] MCHC 32.6 32.0 - 36.0 g/dL [facility] RDW 14.1 11.5 - 14.5 % [facility] MPV 10.8 8.4 - 12.0 fL [facility] NRBC 0.00 0.00 /100 WBCs [facility] ABSOLUTE NRBC 0.00 0.00 K/uL [facility] Blood 05/27/2025 5:35 AM EDT 05/27/2025 5:49 AM EDT us Izabela Jean [facility] LAB BLOOD ORDERABLES Fin al Result Performing Organization Address City/[facility]/ZIP Co de Phone Number [address] [address] * (ABNORMAL) Phosphorus (05/27/2025 5:35 AM EDT) Only the most recent of2 resultswithin the time period is included. PHOSPHORUS 4.7(H) 2.7 - 4.5 mg/dL [facility] Blood 05/27/2025 5:35 AM EDT 05/27/2025 5:49 AM EDT Izabela Jean [facility] LAB BLOOD ORDERABLES Fin al Result [address] [address] * Magnesium (05/27/2025 5:35 AM EDT) Only the most recent of4 resultswithin the time period is included. MAGNESIUM 2.2 1.6 - 2.6 mg/dL [facility] Blood 05/27/2025 5:35 AM EDT 05/27/2025 5:49 AM EDT Izabela Jean [facility] LAB BLOOD ORDERABLES Fin al Result Performing Organization Address [facility] Co de Phone Number [address] [address] * (ABNORMAL) Basic metabolic panel (05/26/2025 7:48 AM EDT) Only the most recent of11 resultswithin the time period is included. SODIUM 127(L) 133 - 146 mmol/L [facility] CHLORIDE 92(L) 96 - 108 mmol/L [facility] POTASSIUM 5.5(H) 3.3 - 5.1 mmol/L [facility] CO2 21 21 - 35 mmol/L [facility] BUN 66(H) 6 - 19 mg/dL [facility] CREATININE 3.80(H) 0.5 - 1.5 mg/dL [facility] GLUCOSE 159(H) 70 - 99 mg/dL [facility] CALCIUM 9.2 8.4 - 10.3 mg/dL [facility] EGFR 12(L) >59 mL/min/1.7 3m2 [facility] Comment:Estimated glomerular filtration rate calculated using the CKD-EPI refit equation. ANION GAP 20 10 - 20 mmol/L [facility] Blood 05/26/2025 7:48 AM EDT 05/26/2025 8:13 AM EDT Izabela Jean [facility] LAB BLOOD ORDERABLES Fin al Result Performing Organization Address City/[facility]/ZIP Co de Phone Number [address] [address] * Sodium, random urine (05/25/2025 12:09 PM EDT) Only the most recent of2 resultswithin the time period is included. URINE SODIUM 26 mmol/L [facility] Urine (Urine) 05/25/2025 12: 09 PM EDT 05/25/2025 12:17 PM EDT us Freddie Hoyos MD URINE ORDERABLES Final Resu lt Performing Organization Address [facility]/ZIP Co de Phone Number [address] [address] * XR CHEST PA AND LATERAL 2 VIEWS (05/25/2025 11:18 AM EDT) Anatomical Region Laterality Modality Chest Computed Radiogr aphy 05/25/2025 2:45 PM EDT Impressions 05/25/2025 2:48 PM EDT Similar small pleural effusions, waxing and waning of a basilar small airspace consolidation (consider aspiration/pneumonia/or atelectasis). There could still be mild vascular congestion. Narrative 05/25/2025 2:48 PM EDT XR CHEST PA AND LATERAL 2 VIEWS Referring clinician's provided indication for this examination in Epic: Hypoxia; Dyspnea (Shortness of Breath) COMPARISON: XR CHEST 1 VIEW and multiple other priors FINDINGS: Devices/Tubes/Lines: Dual-lead left pacemaker. Lungs: Waxing and waning bibasilar airspace consolidation. Low lung volumes accentuate the bronchovascular markings and the cardiomediastinal silhouette. Pleura: Similar small pleural effusions. No pneumothorax. Heart/Mediastinum: The cardiomediastinal silhouette is similarly prominent. Bones/Soft Tissues: Normal. No significant skeletal abnormality. Procedure Note Rose Bonds MD - 05/25/2025 XR CHEST PA AND LATERAL 2 VIEWS Referring clinician's provided indication for this examination in [facility]:Hypoxia; Dyspnea (Shortness of Breath) COMPARISON: XR CHEST 1 VIEW and multiple other priors FINDINGS: Devices/Tubes/Lines: Dual-lead left pacemaker. Lungs: Waxing and waning bibasilar airspace consolidation. Low lungvolumes accentuate the bronchovascular markings and the cardiomediastinalsilhouette. Pleura: Similar small pleural effusions. No pneumothorax. Heart/Mediastinum: The cardiomediastinal silhouette is similarlyprominent. Bones/Soft Tissues: Normal. No significant skeletal abnormality. IMPRESSION: Similar small pleural effusions, waxing and waning of a basilar smallairspace consolidation (consider aspiration/pneumonia/or atelectasis).There could still be mild vascular congestion. us Freddie Hoyos MD IMG XR CHEST Final Resul t * Cortisol AM (05/25/2025 6:05 AM EDT) CORTISOL AM 17.1 6.02 - 18.4 ug/dL [facility] Blood 05/25/2025 6:05 AM EDT 05/25/2025 6:53 AM EDT Result Sommer Hoyos MD LAB BLOOD ORDERABLES Final Result [address] [address] * Osmolality, serum (05/25/2025 6:05 AM EDT) Only the most recent of3 resultswithin the time period is included. OSMOLALITY 293 289 - 308 mOsm/kg water [facility] Blood 05/25/2025 6:05 AM EDT 05/25/2025 6:53 AM EDT us Freddie Hoyos MD LAB BLOOD ORDERABLES Final Result Performing Organization Address City/[facility]/ZIP Co de Phone Number [address] [address] * Osmolality, Random Urine (05/24/2025 12:37 PM EDT) Only the most recent of2 resultswithin the time period is included. URINE OSMOLALITY 317 mOsm/kg water [facility] Urine (Urine) 05/24/2025 12: 37 PM EDT 05/24/2025 1:02 PM EDT us Freddie Hoyos MD URINE ORDERABLES Final Resu lt Performing Organization Address [facility] Co de Phone Number [address] [address] * NC Myocardial Perfusion Pharmacologic Stress Multiple (05/22/2025 12:36 PM EDT) Max Predicted Heart Rate 146 bpm [facility] Anatomical Region Laterality Modality Heart, Vascular Nuclear Medicine 05/22/2025 1:13 PM EDT Impressions 05/22/2025 1:38 PM EDT Left ventricular ejection fraction: 40% Global hypokinesia with small mild ischemia at the apex. ATTESTATION: I, Dr. Phoenix Dominguez as teaching physician, have reviewed the images for this case and if necessary edited the report originally created by Steven Gorman. Narrative 05/22/2025 1:38 PM EDT EXAM: NC MYOCARDIAL PERFUSION PHARMACOLOGIC STRESS MULTIPLE CLINICAL INDICATION: Chest pain/anginal equiv, 10yr CHD risk > 20%, treadmill candidate. TECHNIQUE: According to standard departmental protocol, the patient was injected with 10.8 mCi of TC-99M Sestamibi IV at rest and ungated SPECT myocardial images were obtained. Subsequently, a stress test was performed and 30.1 mCi of TC-99M Sestamibi was injected at peak stress. After 30 to 60 minutes, gated SPECT images were obtained and assessed for myocardial perfusion and left ventricular function. Stress EKG findings were interpreted by cardiology and are reported separately. Please refer to that report in [facility]. COMPARISON: No prior cardiac SPECT is available for comparison FINDINGS: PERFUSION: Myocardial perfusion images show no evidence of scar. There is a small area of mild reduction of perfusion in the apex on stress images which normalizes on rest. VENTRICULAR SIZE AND FUNCTION: There is global hypokinesia. LV EF: 40% TID Ratio: 0.91 IMAGE QUALITY: Good Procedure Note Phoenix Castillo MD, MPH - 05/22/2025 EXAM: NC MYOCARDIAL PERFUSION PHARMACOLOGIC STRESS MULTIPLE CLINICAL INDICATION: Chest pain/anginal equiv, 10yr CHD risk > 20%,treadmill candidate. TECHNIQUE: According to standard departmental protocol, the patient wasinjected with 10.8 mCi of TC-99M Sestamibi IV at rest and ungated SPECTmyocardial images were obtained. Subsequently, a stress test was performedand 30.1 mCi of TC-99M Sestamibi was injected at peak stress. After 30 to60 minutes, gated SPECT images were obtained and assessed for myocardialperfusion and left ventricular function. Stress EKG findings were interpreted by cardiology and are reportedseparately. Please refer to that report in [facility]. COMPARISON: No prior cardiac SPECT is available for comparison FINDINGS: PERFUSION: Myocardial perfusion images show no evidence of scar. There josefina small area of mild reduction of perfusion in the apex on stress imageswhich normalizes on rest. VENTRICULAR SIZE AND FUNCTION: There is global hypokinesia. LV EF: 40% TID Ratio: 0.91 IMAGE QUALITY: Good IMPRESSION: Left ventricular ejection fraction: 40% Global hypokinesia with small mild ischemia at the apex. ATTESTATION: I, Dr. Phoenix Dominguez as teaching physician, havereviewed the images for this case and if necessary edited the reportoriginally created by Steven Gorman. us Travis Arayaoleo DO CV NM CARDIAC Final Result * NC Stress Result for Nuclear Stress Test (05/22/2025 11:29 AM EDT) [facility] Max Predicted Heart Rate 146 bpm [facility] Max BP Systolic 128 mmHg [facility] Max BP Diastolic 64 mmHg [facility] Max HR 69 BPM [facility] Resting HR 60 BPM [facility] Resting BP Systolic 128 mmHg [facility] Resting BP Diastolic 64 mmHg [facility] Peak METS 1.0 METS [facility] Peak HR 61 BPM [facility] Anatomical Region Laterality Modality Heart Other 05/22/2025 10:5 3 AM EDT 05/22/2025 11:28 AM EDT Narrative 05/24/2025 9:19 AM EDT Stress Findings The resting heart rate was 60 BPM. The resting BP was 128/64 mmHg. A peak heart rate of 61 BPM was achieved. 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 0.4 mg Regadenoson (lexiscan) given IV push over 10 seconds as per protocol immediately followed by injection of Tc99m Sestamibi by Estefani biochemistry technologist. 1. EKG - Baseline EKG showed A and V paced beats. 2. SYMPTOMS -No chest pain. She did have a hypotensive response to regadenoson with blood pressure as low as 80/50 with lightheadedness and feeling nauseous. She was reversed with 75 mg of aminophylline with immediate resolution of symptoms after the injection. 3. PHYSIOLOGY - Resting HR was 60 bpm. After Lexiscan injection, HR 69 bpm 4. ARRHYTHMIAS -None Conclusion -The EKG portion of this test was nondiagnostic for ischemia due to the presence of V paced beats. There were no reported symptoms concerning for angina.. Nuclear images pending and will be reported separately. Liya Carpenter NP with Dr. Schulz Response to Stress The patient exercised for minutes and seconds, achieving 1.0 METS at peak exercise. Baseline blood pressure was 128/64 mmHg, and baseline heart rate was 60 bpm. The patient achieved a peak heart rate of 61 bpm, which is% of their maximum predicted heart rate. us Travis Schulz DO CV NM CARDIAC Final Result * XR CHEST 1 VIEW (05/22/2025 8:33 AM EDT) Anatomical Region Laterality Modality Chest Computed Radiogr aphy 05/22/2025 8:37 AM EDT Impressions 05/22/2025 8:51 AM EDT Interval improvement in bilateral airspace opacities with continued interstitial prominence and small bilateral pleural effusions, likely representing improving pulmonary edema. Narrative 05/22/2025 8:51 AM EDT XR CHEST 1 VIEW Referring clinician's provided indication for this examination in [facility]: Abnormal xray - pleural effusion COMPARISON: XR CHEST PORTABLE FINDINGS: Devices/Tubes/Lines: Left chest wall dual-lead pacemaker. Lungs: Interval improvement in bilateral basilar predominant airspace opacities with continued interstitial prominence, likely representing improving pulmonary edema. Pleura: Small bilateral pleural effusions. No pneumothorax. Heart/Mediastinum: Unchanged in appearance. Bones/Soft Tissues: No significant skeletal abnormality. Procedure Note Natali Mccoy MD - 05/22/2025 XR CHEST 1 VIEW Referring clinician's provided indication for this examination in [facility]:Abnormal xray - pleural effusion COMPARISON: XR CHEST PORTABLE FINDINGS: Devices/Tubes/Lines: Left chest wall dual-lead pacemaker. Lungs: Interval improvement in bilateral basilar predominant airspaceopacities with continued interstitial prominence, likely representingimproving pulmonary edema. Pleura: Small bilateral pleural effusions. No pneumothorax. Heart/Mediastinum: Unchanged in appearance. Bones/Soft Tissues: No significant skeletal abnormality. IMPRESSION: Interval improvement in bilateral airspace opacities with continuedinterstitial prominence and small bilateral pleural effusions, likelyrepresenting improving pulmonary edema. Freddie Hoyos MD IMG XR CHEST Final Resul t * (ABNORMAL) CBC and differential (05/21/2025 5:58 AM EDT) Only the most recent of6 resultswithin the time period is included. WBC 3.72(L) 4.00 - 11.00 K/uL [facility] RBC 4.03 4.00 - 5.20 M/uL [facility] HGB 10.6(L) 12.0 - 16.0 g/dL [facility] HCT 32.9(L) 36.0 - 46.0 % [facility] PLT 260 150 - 450 K/uL [facility] MCV 81.6 80.0 - 100.0 fL [facility] MCH 26.3(L) 27.0 - 31.0 pg [facility] MCHC 32.2 32.0 - 36.0 g/dL [facility] RDW 13.6 11.5 - 14.5 % [facility] MPV 10.4 8.4 - 12.0 fL [facility] NRBC 0.00 0.00 /100 WBCs [facility] ABSOLUTE NRBC 0.00 0.00 K/uL [facility] DIFF METHOD Auto [facility] NEUTS 59.2 48.0 - 76.0 % [facility] LYMPHS 20.2 18.0 - 41.0 % [facility] MONOS 18.5(H) 4.0 - 11.0 % [facility] EOS 1.3 0.0 - 5.0 % [facility] BASOS 0.5 0.0 - 1.5 % [facility] Granulocytes, immature (%) 0.3 0.0 - 0.9 % [facility] ABSOLUTE NEUTS 2.20 1.92 - 7.60 K/uL [facility] ABSOLUTE LYMPHS 0.75 0.72 - 4.10 K/uL [facility] ABSOLUTE MONOS 0.69 0.16 - 1.10 K/uL [facility] ABSOLUTE EOS 0.05 0.00 - 0.50 K/uL [facility] ABSOLUTE BASOS 0.02 0.00 - 0.15 K/uL [facility] Granulocytes, immature 0.01 0.00 - 0.09 K/uL [facility] Blood 05/21/2025 5:58 AM EDT 05/21/2025 6:13 AM EDT us Yoana Chiang MD LAB BLOOD ORDERABLES Final Result [facility] [address] [place] [address] * US Kidneys (05/18/2025 10:06 AM EDT) Anatomical Region Laterality Modality Abdomen, Kidney Ultrasound 05/18/2025 10:2 1 AM EDT Impressions 05/18/2025 10:22 AM EDT 1. No hydronephrosis. 2. No sonographic evidence for solid renal mass or shadowing stone. 3. Simple cyst in the right kidney. Narrative 05/18/2025 10:22 AM EDT US KIDNEYS Referring clinician's provided indication for this examination in Epic: Renal failure, acute TECHNIQUE: Kidney Ultrasound. COMPARISON: Prior studies including abdominal ultrasound 09/24/2024 FINDINGS: Right Kidney: Size: 10.2 cm No stones or hydronephrosis. Simple cyst in the right mid kidney (anechoic with increased through transmission) measures 1.2 x 1.6 x 1.6 cm Left Kidney: Size: 11.2 cm No stones or hydronephrosis. Bladder: Within normal limits. Procedure Note Matteo Bonds MD - 05/18/2025 US KIDNEYS Referring clinician's provided indication for this examination in [facility]:Renal failure, acute TECHNIQUE: Kidney Ultrasound. COMPARISON: Prior studies including abdominal ultrasound 09/24/2024 FINDINGS: Right Kidney: Size: 10.2 cm No stones or hydronephrosis. Simple cyst in the right mid kidney (anechoic with increased throughtransmission) measures 1.2 x 1.6 x 1.6 cm Left Kidney: Size: 11.2 cm No stones or hydronephrosis. Bladder: Within normal limits. IMPRESSION: 1. No hydronephrosis. 2. No sonographic evidence for solid renal mass or shadowing stone. 3. Simple cyst in the right kidney. Yoana Chiang MD [facility] [place] [facility] Final Resul t * COVID Pandemic Respiratory Viral Order (PRO) (05/17/2025 3:23 PM EDT) Only the most recent of2 resultswithin the time period is included. Test Ordered Rapid COVID, Flu, RSV has been ordered [facility] SPECIMEN SOURCE/DESCRIPTION NASAL [facility] SARS-CoV 2 (COVID-19) PCR Negative Negative [facility] Comment: SARS-CoV-2 not detected Negative results do not preclude SARS-CoV-2 infection and should not be used as the sole basis for patient management decisions. Negative results must be combined with clinical observations, patient history, and epidemiological information. This test has been authorized by the FDA under an Emergency Use Authorization (EUA) for use by authorized laboratories. Influenza A PCR Negative Negative [facility] Influenza B PCR Negative Negative [facility] RSV PCR Negative Negative [facility] Other (Nasopharyngeal swab) 05/17/2025 3:23 PM EDT 05/17/2025 4:22 PM EDT Yoana Chiang MD BODY FLUIDS AND STOOLS KAROLYN GALINDO Final Result [address] [address] * TTE COMPREHENSIVE (05/17/2025 9:21 AM EDT) Body Surface Area 1.83 m2 Height 168 cm Weight 74 kg Systolic BP 151 mmHg Diastolic BP 74 mmHg Interventricular Septum Thickness 12 6 - 11 mm Left Ventricle Internal Diameter End Diastole 50 37 - 52 mm Left Ventricle Internal Diameter End Systole 41 <35 mm Left Ventricular Outflow Tract Diameter 17.0 mm LVOT VTI REST 131.0 mm Left Ventricular Outflow Tract Velocity 0.6 m/s Left Ventricular Outflow Tract Gradient at Rest 1 mmHg Left Ventricular Posterior Wall Thickness 11 6 - 11 mm Left Ventricle Ea Lateral Wave Speed 6.1 cm/s Left Ventricle Ea Septal Wave Speed 3.7 cm/s Ejection Fraction 35 50 - 75 Percent Aortic Valve Mean Gradient 6 mmHg Aortic Valve Time Velocity Integral 380.0 mm Aortic Valve Peak Velocity 1.7 m/s Aortic Valve Peak Gradient 11 mmHg Aortic Arch Diameter 24 mm Aortic Sinus Diameter 26 <40 mm Ascending Aorta Diameter 30 <36 mm Inferior Vena Cava Diameter 19 <21 mm Left Ventricle A Wave Speed 59.6 cm/s Left Ventricle E Wave Speed 78.8 cm/s Mitral Valve Mean Gradient 1 mmHg Mitral Valve Peak Gradient 3 mmHg Mitral Valve Area Continuity Equation 1.20 cm2 Pulmonary Valve Peak Velocity 0.9 m/s Pulmonary Valve Peak Gradient 3 mmHg Right Ventricle Basal Diameter 42 25 - 41 mm Tricuspid Valve Peak Velocity 3.0 m/s Raw LV EF% 33 % MV E/E' Tissue Velocity Lateral 12.92 Relative Wall Thickness 0.44 0.22 - 0.42 Left Ventricle indexed to BSA 120.4 g/m2 MV E/A ratio 1.3 MV E/e' septal 21.30 Left Ventricle E/e' Average 17.1 Aortic Valve Prosthetic Peak Gradient 11 mmHg Aortic Valve Sinus Index by BSA 14 mm/m2 Aorta Sinus Index by Height 1.55 cm/m Aorta Sinus CSA index by Height 3.16 cm2/m Ascending Aorta Index 16 mm/m2 Asc Aorta CSA Index by Height 4.21 cm2/m Mitral Valve Prosthetic Peak Gradient 3 mmHg Mitral Valve Prosthetic Mean Gradient 1 mmHg Right Ventricle to Right Atrium Pressure Gradient 36 mmHg Right Ventricle Peak Systolic Pressure (Assuming RAP 10) 46 mmHg MGB CV ECHO TV RVSP (ASSUMING RAP OF 5) 41 mmHg RVSP (Exclusive of RAP) 36 mmHg Pulmonic Valve Prosthetic Peak Gradient 3 mmHg Ascending Aorta Index 16 mm Aortic Sinus Index 14 mm Ascending Aorta Diameter 16 mm Aortic Valve Sinus Index 1 14 19 - 27 mm AO ASC DIAM BSA INDEX 16.39 Echo E/Ea 21.30 Left Atrial Volume Index 29 16 - 34 mL/m2 Right Ventricle TAPSE 22 >=17 mm Right Ventricle Pulse Doppler S Wave 9.7 >=9.5 cm/s Left Atrial Volume 53 mL Left Atrial Volume Index by Height 32 mL/m Right Atrium Area 12 cm2 Right Atrium Area index 7 cm2/m2 MGB CV AV DIMENSIONLESS INDEX (PEAK) - STRESS ECHO DOBUT - REST 0.35 Aortic Valve Prosthetic Mean Gradient 6 mmHg Right Ventricle Peak Systolic Pressure 44 mmHg Right Atrium Pressure Estimated 8 mmHg Left Ventricle Diastolic Volume 149 46 - 106 mL Left Ventricle Diastolic Volume Index 81 29 - 61 mL/m2 Left Ventricle Systolic Volume 95 14 - 42 mL Left Ventricle Systolic Volume Index 52 8 - 24 mL/m2 Anatomical Region Laterality Modality Heart Ultrasound Narrative 05/17/2025 10:57 AM EDT Images from the original result were not included. Mild concentric LVH. LV cavity size is normal. LV systolic function is moderately reduced with EF 30 to 35%. There is moderate global hypokinesis without regional variation. Grade 2 diastolic dysfunction. The right ventricle is mildly dilated, but has preserved systolic function. There is a pacer/ICD wire visualized in the right heart. There is mild mitral regurgitation with a centrally directed jet. There is a moderate size left pleural effusion. Comparison is made to the prior study report dated September 2024. LV systolic function has declined significantly. Left Ventricle There is mild concentric hypertrophy. There is moderately reduced left ventricular systolic function. The LV ejection fraction is 35% (calculated via biplane measurement). There is abnormal diastolic function. There is Grade II diastolic dysfunction. The E/A ratio is 1.3. The e' septal wave velocity is 3.7 cm/s. The e' lateral wave velocity is 6.1 cm/s. The average E/e' ratio is 17.1. Right Ventricle The right ventricle is mildly dilated. There is a lead (ICD/pacer) present in the right ventricle. There is normal right ventricular systolic function. TAPSE is 22 mm. RV S' wave is 9.7 cm/s. Left Atrium The left atrium is normal in size. The left atrial volume is 53 mL. The left atrial volume index by BSA is 29 mL/m2. There are normal flow patterns in the pulmonary vein. Right Atrium The right atrium is normal in size. The right atrial area is 12 cm2. There is a lead (ICD/pacer) present in the right atrium. The IVC is normal in size with reduced inspiratory collapse. Mitral Valve The mitral valve appears normal. There is no mitral stenosis. There is mild mitral regurgitation. Tricuspid Valve The tricuspid valve appears normal. There is no tricuspid stenosis. There is mild tricuspid regurgitation. The RV systolic pressure was calculated at 44 mmHg (using TR peak velocity of 3.0 m/s and assuming an RA pressure of 8 mmHg). Aortic Valve The aortic valve is tricuspid. There is leaflet thickening. There is no aortic stenosis. There is no aortic regurgitation. The visualized portions of the thoracic aorta appear normal in size. The aortic sinus diameter is 26 mm. The ascending aortic diameter is 30 mm. Pulmonic Valve There is no obvious structural abnormality. There is no pulmonic stenosis. There is trace pulmonic regurgitation. Pericardium There is no pericardial effusion. There is a pleural effusion. General Findings The image quality was fair (3). Technique(s) used in the evaluation: Color flow Doppler and Spectral Doppler. Consent was obtained from: patient The predominant rhythm during the study was a paced rhythm. Patient tolerated the procedure well. No complications observed during the procedure. Comparison Findings Compared to prior TTE on 09/25/2024, IAS/IVS The interatrial septum appears normal. us Pallavi Ceron [facility] CV ECHO ORDERABLES Alejandra l Result * (ABNORMAL) Hemoglobin A1c (05/17/2025 6:44 AM EDT) HEMOGLOBIN A1C 9.0(H) 4.3 - 5.8 % [facility] Blood 05/17/2025 6:44 AM EDT 05/17/2025 7:25 AM EDT us Pallavi Ceron [facility] LAB BLOOD ORDERABLES Fi nal Result [address] [id number] * XR Chest Portable (05/16/2025 4:22 PM EDT) Anatomical Region Laterality Modality Chest Computed Radiogr aphy 05/16/2025 4:47 PM EDT Impressions 05/16/2025 4:49 PM EDT Cardiomegaly, small bilateral pleural effusions and probable pulmonary alveolar edema. Narrative 05/16/2025 4:49 PM EDT XR CHEST PORTABLE Referring clinician's provided indication for this examination in [facility]: Dyspnea on exertion COMPARISON: XR CHEST PORTABLE FINDINGS: Devices/Tubes/Lines: Pacemaker leads project over the right atrium and right ventricle. Lungs: Basilar predominant interstitial opacities with silhouetting of the pulmonary parenchyma. Pleura: Small bilateral pleural effusions. No pneumothorax. Heart/Mediastinum: Cardiomegaly. Bones/Soft Tissues: No acute skeletal abnormality. Procedure Note Jayden Choi MD - 05/16/2025 XR CHEST PORTABLE Referring clinician's provided indication for this examination in [facility]:Dyspnea on exertion COMPARISON: XR CHEST PORTABLE FINDINGS: Devices/Tubes/Lines: Pacemaker leads project over the right atrium andright ventricle. Lungs: Basilar predominant interstitial opacities with silhouetting of thepulmonary parenchyma. Pleura: Small bilateral pleural effusions. No pneumothorax. Heart/Mediastinum: Cardiomegaly. Bones/Soft Tissues: No acute skeletal abnormality. IMPRESSION: Cardiomegaly, small bilateral pleural effusions and probable pulmonaryalveolar edema. Rafael Fay MD IMG XR CHEST Final Re sult * (ABNORMAL) LFTs (hepatic panel) (05/16/2025 3:37 PM EDT) [facility] ALKALINE PHOSPHATASE 107 39 - 117 U/L [facility] TOTAL BILIRUBIN 0.3 0.0 - 1.2 mg/dL [facility] DIRECT BILIRUBIN 0.1 0.0 - 0.2 mg/dL [facility] Bilirubin (Indirect) NOT CALCULATED 0 - 1.5 mg/dL [facility] AST 38(H) 0 - 37 U/L [facility] ALT 70(H) 0 - 40 U/L [facility] TOTAL PROTEIN 7.4 6.5 - 8.0 g/dL [facility] ALBUMIN 3.4(L) 3.9 - 4.8 g/dL [facility] GLOBULIN 4.0 1 - 4.8 g/dL [facility] A/G Ratio 0.85(L) 1.00 - 4.80 RATIO [facility] Blood 05/16/2025 3:37 PM EDT 05/16/2025 3:39 PM EDT Rafael Fay MD LAB BLOOD ORDERABLES Fin al Result [facility] [address] [place] [address] * (ABNORMAL) Troponin (05/16/2025 3:37 PM EDT) Only the most recent of2 resultswithin the time period is included. [facility] Troponin-T, HS Gen5 76(H) 0 - 9 ng/L [facility] Blood 05/16/2025 3:37 PM EDT 05/16/2025 3:39 PM EDT us Rafael Fay MD LAB BLOOD ORDERABLES Fin al Result Performing Organization Address [facility] Co de Phone Number [address] [address] * (ABNORMAL) NT-proBNP (05/16/2025 3:37 PM EDT) NT-PROBNP 9,898(H) 0 - 450 pg/mL [facility] Blood 05/16/2025 3:37 PM EDT 05/16/2025 3:39 PM EDT us Rafael Fay MD LAB BLOOD ORDERABLES Fin al Result Performing Organization Address [facility] Co de Phone Number [address] [address] * ECG 12-LEAD (05/16/2025 3:23 PM EDT) Ventricular Rate EKG/MIN 67 BPM [facility] Atrial Rate 67 BPM [facility] ME Interval 180 ms [facility] QRS Duration 190 ms [facility] QT Interval 490 ms [facility] QTC Interval 517 ms [facility] P [place] 51 degrees [facility] R Wave [place] 30 degrees [facility] T Wave [place] 193 degrees [facility] 05/16/2025 3:23 PM EDT 05/17/2025 12:41 PM EDT Narrative [facility] - 05/17/2025 12:41 PM EDT Atrial-sensed ventricular-paced rhythm Abnormal ECG When compared with ECG of 22-Sep-2024 04:34, Vent. rate has increased by 7 bpm Confirmed by Jabari Purcell ([id number]) on 05/17/2025 12:41:30 PM us Rafael Fay MD ECG ORDERABLES Final Re sult Performing Organization Address [facility] de Phone Number [facility] * Outside Lab (04/10/2025 11:25 AM EDT) us Historical Provider LAB BLOOD ORDERABLES Alejandra hayes Result * Hepatitis C antibody, qualitative (09/23/2024 4:12 AM EST) HCV NON-REACTIV E NON-REACTI VE [facility] Blood 09/23/2024 4:12 AM EST 09/23/2024 5:15 AM EST Pallavi Ceron [facility] LAB BLOOD ORDERABLES Fi nal Result Performing Organization Address [facility] de Phone Number [address] [address] * (ABNORMAL) Lipid panel (04/03/2024 2:25 PM EDT) HDL 56 mg/dL [facility] Comment: Interpretation <40 mg/dL: Low HDL cholesterol (major risk factor for CHD) Greater than or equal to 60 mg/dL: High HDL cholesterol ( negative risk factor for CHD) HDL - cholesterol is affected by a number of factors, e.g. smoking, excerise, hormones, sex and age. CHOLESTEROL 248(H) 0 - 240 mg/dL [facility] TRIGLYCERIDES 214(H) 30 - 160 mg/dL [facility] LDL 149(H) 50 - 129 mg/dL [facility] Comment: LDL levels in terms of risk for coronary heart disease: <100 mg/dL: Optimal 100-129 mg/dL: Near or above optimal 130-159 mg/dL: Borderline high 160-189 mg/dL: High >190 mg/dL: Very High CARDIAC RISK RATIO 4.4 3.3 - 4.4 [facility] Blood 04/03/2024 2:25 PM EDT 04/03/2024 2:31 PM EDT us Afua Leblanc [employer]IMMING [employer] ATTENDANT LAB BLOOD ORDERABLES Final R esult Performing Organization Address [facility] Co de Phone Number [facility] [address] [place] [address] from Last 3 Months or Most Recently Relevant to Health Maintenance Additional Health Concerns Active Problems Noted Date Diagnosed Date Chronic Condition Self-Management 06/25/2018 Medication Management 06/25/2018 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 04/03/2024 Insurance [place] [facility] [employer] PART A & B Member Subscriber Plan / Payer (Ef fective 2020-Present) Name:Belkys Florian Member ID:[id number] Relation to Subscriber:Self Name:Belkys Florian Subscriber ID:[id number] Payer ID:[id number] Group ID:Not on file Type:Medicare Address: [facility] [employer] [facility] [address] [place] [address] [facility] MEDIC[employer] PART A & B [place] Member Subscriber Plan / Payer (Ef fective 2020-Present) Name:Belkys Florian Member ID:[id number] Relation to Subscriber:Self Name:Belksy Florian Subscriber ID:[id number] Payer ID:[id number] Group ID:Not on file Type:Medicare Address: [employer] [address] [place] [address] MEDICARE PART A [place] [address] MEDICARE PART A & B Advance Directives For more information, please contact: [phone] (9AM - 5PM 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 11/06/2017 1:07 PM [facility] 05/22/2020 [facility] 8/3/20 * Full Code (Latest Code Status on File) Date Activated Date Inactivated Comments 05/16/2025 7:56 PM Question Answer Comments Code Status Confirmed With: PatientFamily * Full Code Date Activated Date Inactivated Comments 04/04/2024 6:12 PM 05/16/2025 7:56 PM Question Answer Comments Code Status Confirmed With: PatientFamily Code Discussion Comments: Wants to fill out a ne w [facility] * Full Code (Presumed) Date Activated Date Inactivated Comments 09/04/2018 9:42 PM 09/06/2018 5:40 PM * Full Code (Presumed) Date Activated Date Inactivated Comments 11/02/2017 3:18 AM 11/03/2017 8:03 PM Healthcare Agents on File Name Relationship Healthcare Agent Relationship Communication Luisito Morales Daughter .Primary Health Care Agent (Proxy form on file) Deandre Mae Son Alternate Healt hcare Agent (Proxy form on file) Care Teams Lean Manufacturing Engineer Relationship Specialty Start Date End Date Afua Leblanc CNP [address] [place] [address], [address] [place] [address] [email or web address] PCP - General Nurse Practitioner 05/24/23 Additional Source Comments The information contained in this document represents components of the legal health record. It is not the complete legal health record.Formerly [facility]
== END 2025-06-03 15:28 | disposition home or self-care (01) ==
LOC: HO.HVS 15:03
PROVIDERS: PCP Nurse Practitioner Family; Visit Provider Surgery Vascular Surgery
DX: I73.9 Peripheral vascular disease, unspecified (principal)
CPT/HCPCS: 99213

== ENCOUNTER → 2025-06-03 15:02 | Outpatient (BNVA) | payer MEDICARE, MEDICAID, SELFPAY | PROVIDERS: PCP Nurse Practitioner Family; Visit Provider Surgery Vascular Surgery | DX: Z98.890 Other specified postprocedural states (principal); I73.9 Peripheral vascular disease, unspecified | CPT/HCPCS: 99212 ==

== ENCOUNTER 2025-07-08 10:55 | Outpatient (AMB) | payer MEDICARE, MEDICAID, SELFPAY ==
--- NOTE | 2025-07-08 11:03 | A.OFFVIS_ITS ---
Intake Visit Reasons: 1m follow up- stump check Intake Note: Patient presents for 1 month folow up stump check. No complaints. Accompanied by: Son Allergies penicillin V Allergy (Unknown, Verified 07/08/25 11:05) RSH,ITCHY HPI HPI 1m follow up- stump check: Details: 74-year-old female presents for routine follow-up regarding transmetatarsal amputation. This was originally done in August 2023. She had at 1 point been a [facility] for acute renal failure and fluid overload. Since her last visit she was readmitted to [facility] for GI bleed she was transfused blood. In addition she underwent endoscopy and is scheduled for repeat endoscopy. She is now here for routine surveillance follow-up of her right trans met amp. [facility] Medical History CKD (chronic kidney disease) stage 4, GFR 15-29 ml/min Congestive heart failure Acute systolic CHF (congestive heart failure) Essential hypertension PAD (peripheral artery disease) Hypertension Mood disorder Diabetes Surgical History History of transmetatarsal amputation of right foot (08/31/23) History of left below knee amputation History of femoral angiogram History of left below knee amputation Pacemaker Social History Household Members: Family and Children Housing: House Do you presently have visiting nurse or other home services: No Alcohol intake: current Alcohol intake frequency: does not drink Patient Tobacco Use Status: Never used Tobacco service: No Current occupational status: retired Review of Systems Const All systems reviewed & are unremarkable except as noted in HPI and below Reports no additional complaints ENT Reports Normal hearing present Card Denies chest pain, Denies chest pain at rest, Denies chest pain with activity and Denies pedal edema Resp Denies cough GI Denies abdominal pain Musc Denies abnormal gait, Denies muscle cramps and Denies radiating pain into limb Skin/Breast Denies skin ulcer and Denies wounds Neuro Reports Normal hearing present and Denies abnormal gait Psych Reports no additional complaints Physical Exam Const General: cooperative, healthy appearing and comfortable Orientation/consciousness: oriented to person, oriented to place and oriented to time HEENT Head: Yes normal to inspection Neck Neck: Yes normal visual inspection Carotids: no bruits Chest Chest palpation & inspection: normal inspection of the chest Resp Effort & Inspection: normal respiratory effort and able to speak in complete sentences Auscultation: clear to auscultation bilaterally, no crackles, no rales, no rhonchi and no wheezes Cardio Rate: regular rate Rhythm: regular rhythm Heart sounds: S1 normal heart sound present and S2 normal heart sound present Bruits: no carotid bruits Peripheral pulses: Peripheral pulses 2+ throughout GI Inspection: Yes normal to inspection Skin Other: Right foot trans met amp wound a proximally 1.5 cm in diameter Wounds: no wounds Hair: normal Neuro General: oriented to person, oriented to place and oriented to time Cranial nerves: Yes CN's II-XII intact bilaterally and Yes Normal hearing present Cognition (Neuro): normal cognition Motor exam (neuro): 5/5 motor strength present throughout Extrem Other: venous exam: No significant superficial varicosities or spider telangiectasias, minimal edema General: No clubbing, No cyanosis and No edema Psych Appearance: grossly normal Mental Status: mental status grossly normal Speech and movement: Normal speech and movement present Assessment & Plan Assessment & Plan (1) PAD (peripheral artery disease): Comment: 08/31/2023 - right transmetatarsal amputation Code(s): I73.9 - Peripheral vascular disease, unspecified Category: Medical Plan: In short doing well with her transmetatarsal amputation. Unfortunately she does have multiple medical issues. We will continue with local wound care and switch to alginate as she does have a fair amount of drainage from this. She will follow up with us in a proximally 1 month's time. Thank you for allowing us to assist in her care. If there are any questions or concerns please do not hesitate to contact us. Coding Level of Care Code Est Pt Level 3 (49990) Diagnoses PAD (peripheral artery disease) I73.9
== END 2025-07-08 11:27 | disposition home or self-care (01) ==
LOC: HO.HVS 10:56
PROVIDERS: PCP Nurse Practitioner Family; Visit Provider Surgery Vascular Surgery
DX: I73.9 Peripheral vascular disease, unspecified (principal)
CPT/HCPCS: 99213

== ENCOUNTER → 2025-07-08 10:55 | Outpatient (BNVA) | payer MEDICARE, MEDICAID, SELFPAY | PROVIDERS: PCP Nurse Practitioner Family; Visit Provider Surgery Vascular Surgery | DX: I73.9 Peripheral vascular disease, unspecified (principal) | CPT/HCPCS: 99212 ==

== ENCOUNTER 2025-08-05 15:36 | Outpatient (AMB) | payer MEDICARE, MEDICAID, SELFPAY ==
--- OUTSIDE RECORDS SUMMARY | 2025-07-31 11:30 | XMS_ITS | Encounter Summary ---
Author Organization [facility] Address [address] [place] [address] Phone Care Team Providers Care [employer] Name Role Phone Afua Leblanc SHERLY Primary Care Provider Reason for Visit * Reason Comments Follow-up Encounter Details Date Type Department Care Team (Late st Contact Info) Description 07/31/2025 11:30 AM EST Office Visit [facility] [address], [place] [id number] Cesar Nieves DO [address] [place], [place] [id number] [email or web address] Anemia, unspecified type (Primary Dx); Acute upper gastrointestinal bleeding Social History Tobacco Use Types Packs/Day Years Used Date Smoking Tobacco: Never Smokeless Tobacco: Never Alcohol Use Standard Drinks/Week Comments Not Currently 0 (1 standard drink = 0.6 oz pur e alcohol) none for years Home Health Assessment: Transportation Answer Date Recorded Lack of Transportation (Medical) No 07/23/2025 Lack of Transportation (Non-Medical) No 07/23/2025 Patient Unable or Declines to Respond No 07/23/2025 Child or Family Care Answer Date Record [...] as food, clothing, or medical care? No 06/23/2025 In the past 12 months have y ou been in a relationship with a person who hurts, threatens, or tries to control you? No 06/23/2025 Are you denied basic needs s uch as food, clothing, or medical care? No 06/23/2025 In the past 12 months have y ou been in a relationship with a person who hurts, threatens, or tries to control you? No 06/23/2025 Comments No Sex and Gender Information Value Date Recorded Sex Assigned at Female 09/04/2018 5:38 PM EST Legal Sex Female 10:01 PM EDT Gender Identity Female 09/04/2018 5:38 PM EST Sexual Orientation Straight 09/04/2018 5: 38 PM EST Occupation Industry Job Start Date Job End Date Retired, previously worked at [employer] Not on file Not on file Not on file documented as of this encounter Last Filed Vital Signs Vital Sign Reading Time Taken Comments Blood Pressure 138/90 07/31/2025 11:58 AM EST Pulse 73 07/31/2025 11:34 AM EST Temperature 35.9 C (96.6 F) 07/31/2025 11:34 AM EST Respiratory Rate - - Oxygen Saturation 95% 07/31/2025 11:34 AM EST Inhaled Oxygen Concentration - - Weight - - Height 167.6 cm (5' 5.98 ) 07/31/2025 11:[address] Body Mass Index - - documented in this encounter Progress Notes * Cesar Nieves, DO - 07/31/2025 11:30 AM EST Subjective: Patient ID: Belksy Florian is a 74 y.o. female who presents to have discussion on H. Pylori infection. This was found on stool sample after her recent hospital stay for her GI bleed. Endoscopy showed + Koir Ribera tears. The GI bleed was sig. With Hb down to 4 at one point. The visit today is to discuss treating her for H.Pylori. She is having no stomach pain No diarrhea Stool are back to normal Belkys was refusing labs at the end of her hospital stay but last labs we have show CKD stage 4 eGFR14. She was on PPI during her hospital stay. Pt speaks [facility], Son is interpreting today at patient request Review of Systems Objective: Vitals: 07/31/25 1134 07/31/25 1158 BP: (!) 130/90 (!) 138/90 BP Location: Left arm Left arm Patient Position: Sitting Sitting Pulse: 73 Temp: 35.9 ??C (96.6 ??F) SpO2: 95% Height: 167.6 cm (5' 5.98 ) Physical Exam Cardiovascular: Pulses: Normal pulses. Heart sounds: Normal heart sounds. Pulmonary: Effort: Pulmonary effort is normal. Breath sounds: Normal breath sounds. Abdominal: General: Abdomen is flat. Palpations: Abdomen is soft. Neurological: General: No focal deficit present. Mental Status: She is oriented to person, place, and time. Psychiatric: Mood and Affect: Mood normal. Behavior: Behavior normal. Thought Content: Thought content normal. Assessment/Plan: 1. Anemia, unspecified type (Primary) Assessment & Plan: After GI bleed. Will need to check cbc for recheck Orders: - CBC 2. Acute upper gastrointestinal bleeding Assessment & Plan: With Kori-Ribera tears and now a + H.Pylori infection. Pt feeling well after discharge from her recent admission. The question today is if we treat the H. Pylori infection. I am concerned about treatment with the hx of CKD stage 4 as this may affect the medications we are able to use. - plan to check labs today to check renal function and Hb - Will send referral to GI team who cared for patient to see recommendation for treatment with the CKD 4 as this may affect which treatment regimen we use I personally spent a total of 30 minutes on care for this patient on the date of the encounter. This includes vwrx-qo-uoaf time during the visit as well as non rnsq-qk-ezqy time spent on chart review, documentation, and care coordination. Orders: - Comprehensive Metabolic Panel (CMP) Care gaps to address: Future Appointments Date Time Provider Department Center 09/29/2025 11:00 AM Afua Leblanc, SHERLY [facility] None documented in this encounter Miscellaneous Notes * Assessment & Plan Note - Cesar Nieves DO - 07/31/2025 3:44 PM ESTAssociated Problem(s): Acute upper gastrointestinal bleeding With Kori-Ribera tears and now a + H.Pylori infection. Pt feeling well after discharge from her recent admission. The question today is if we treat the H. Pylori infection. I am concerned about treatment with the hx of CKD stage 4 as this may affect the medications we are able to use. - plan to check labs today to check renal function and Hb - Will send referral to GI team who cared for patient to see recommendation for treatment with the CKD 4 as this may affect which treatment regimen we use I personally spent a total of 30 minutes on care for this patient on the date of the encounter. This includes ujzw-yf-yich time during the visit as well as non yoal-rl-rjac time spent on chart review, documentation, and care coordination. * Assessment & Plan Note - Cesar Nieves DO - 07/31/2025 3:38 PM ESTAssociated Problem(s): Anemia After GI bleed. Will need to check cbc for recheck documented in this encounter Plan of Treatment Upcoming Encounters Date Type Department Care Team (Late st Contact Info) Description 09/29/2025 11:00 AM EST Office Visit [facility] Primary Care [facility] [address] [place] [address] Afua Leblanc CNP [address], [address] [place] [address] [email or web address] Scheduled Orders Name Type Priority Associated Diagnoses Orde r Schedule CBC Lab Routine Anemia, unspecified type Expected: 07/31/2025, Expires: 07/31/2026 Comprehensive Metabolic Panel (CMP) Lab Routine Acute upper gastrointestinal bleeding Expected: 07/31/2025, Expires: 07/31/2026 Scheduled Procedures Name Priority Associated Diagnoses Date/Ti me ESOPHAGOGASTRODUODENOSCOPY Kori-Ribera tear documented as of this encounter Goals Goal Patient Goal Type Associated Problems Recent Progress Patient-Stated? Author Adhere to prescribed treatment plan Care Plan Chronic Condition Self-Management No Jazmyn Anderson, JULY Note: Barriers: No identified barriers Manage and adhere to medication treatment plan Care Plan Medication Management No Jazmyn Anderson RN Note: Barriers: No identified barriers documented as of this encounter Visit Diagnoses Diagnosis Anemia, unspecified type- Primary Acute upper gastrointestinal bleeding Unspecified, hemorrhage of gastrointestinal tract documented in this encounter Additional Health Concerns Active Problems Noted Date Diagnosed Date Chronic Condition Self-Management 06/25/2018 Medication Management 06/25/2018 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 Assessment Noted Time PHQ-2 Depression Total Score: 0 12/28/19 25 11:13 AM EDT documented as of this encounter Care Teams [employer] Relationship Specialty Start Date End Date Afua Leblanc CNP [address] [place] [address], [address] [place] [address] [email or web address] PCP - General Nurse Practitioner 05/24/23 documented as of this encounter Additional Source Comments The information contained in this document represents components of the legal health record. It is not the complete legal health record.[facility]
--- NOTE | 2025-08-05 15:37 | A.OFFVIS_ITS ---
Intake Visit Reasons: 4w wound check Intake Note: Patient presents for 4 week wound check. No complaints. Accompanied by: Son Allergies penicillin V Allergy (Unknown, Verified 08/05/25 15:37) RSH,ITCHY HPI HPI 4w wound check: Details: Patient is doing well in terms of her right transmetatarsal amputation. It has gone on to heal. She has been stable more recently and has not had a readmission to [facility]. She has a prior history of left BKA which appears to be doing relatively well as well. Now for routine follow-up. [facility] Medical History CKD (chronic kidney disease) stage 4, GFR 15-29 ml/min Congestive heart failure Acute systolic CHF (congestive heart failure) Essential hypertension PAD (peripheral artery disease) Hypertension Mood disorder Diabetes Surgical History History of transmetatarsal amputation of right foot (08/31/23) History of left below knee amputation History of femoral angiogram History of left below knee amputation Pacemaker Social History Household Members: Family and Children Housing: House Do you presently have visiting nurse or other home services: No Alcohol intake: current Alcohol intake frequency: does not drink Patient Tobacco Use Status: Never used Tobacco service: No Current occupational status: retired Review of Systems Const All systems reviewed & are unremarkable except as noted in HPI and below Reports no additional complaints ENT Reports Normal hearing present Card Denies chest pain, Denies chest pain at rest, Denies chest pain with activity and Denies pedal edema Resp Denies cough GI Denies abdominal pain Musc Denies abnormal gait, Denies muscle cramps and Denies radiating pain into limb Skin/Breast Denies skin ulcer and Denies wounds Neuro Reports Normal hearing present and Denies abnormal gait Psych Reports no additional complaints Physical Exam Const General: cooperative, healthy appearing and comfortable Orientation/consciousness: oriented to person, oriented to place and oriented to time HEENT Head: Yes normal to inspection Neck Neck: Yes normal visual inspection Carotids: no bruits Chest Chest palpation & inspection: normal inspection of the chest Resp Effort & Inspection: normal respiratory effort and able to speak in complete sentences Auscultation: clear to auscultation bilaterally, no crackles, no rales, no rhonchi and no wheezes Cardio Other: Right DP signals Rate: regular rate Rhythm: regular rhythm Heart sounds: S1 normal heart sound present and S2 normal heart sound present Bruits: no carotid bruits GI Inspection: Yes normal to inspection Skin Other: Right trans met healed, left BKA healed Wounds: amputation site Hair: normal Neuro General: oriented to person, oriented to place and oriented to time Cranial nerves: Yes CN's II-XII intact bilaterally and Yes Normal hearing present Cognition (Neuro): normal cognition Motor exam (neuro): 5/5 motor strength present throughout Extrem Other: venous exam: No significant superficial varicosities or spider telangiectasias, minimal edema General: No clubbing, No cyanosis and No edema Psych Appearance: grossly normal Mental Status: mental status grossly normal Speech and movement: Normal speech and movement present Assessment & Plan Assessment & Plan (1) PAD (peripheral artery disease): Comment: 08/31/2023 - right transmetatarsal amputation Code(s): I73.9 - Peripheral vascular disease, unspecified Category: Medical Plan: In short patient is doing well with right transmetatarsal amputation. We will order prosthetic placement. In addition patient will require routine arterial surveillance follow-up. Thank you for allowing us to assist in her care. If there are any questions or concerns please do not hesitate to contact us Orders: Orders US arterial duplex LE RT Today I73.9 - Peripheral vascular disease, unspecified Coding Level of Care Code Est Pt Level 4 (87043) Diagnoses PAD (peripheral artery disease) I73.9
--- OUTSIDE RECORDS SUMMARY | 2025-08-05 19:47 | XMS_ITS ---
Care Plan Created on: August 05, 2025 Belkys Florian : 1950 Sex: Female Author Organization [facility] Address [address] [facility] [address] [place] [address] Phone Care Team Providers Care Financial Recruiter Name Role Phone Holland Afua CNP Primary Care Provider Active Problems Problem Noted Date Diagnosed Date Thrombocytopenia 06/25/2025 Acute on chronic blood loss anemia 06/24/2025 Chronic heart failure with r educed ejection fraction (HFrEF, <= 40%) 06/24/2025 Acute lactic acidosis 06/24/2025 SSS (sick sinus syndrome) 06/24/2025 Esophagitis determined by endoscopy 06/24/2025 Acute encephalopathy 06/24/2025 Aspiration pneumonia of both lower lobes 025 Kori-Ribera tear 06/24/2025 Hematemesis 06/24/2025 Acute upper gastrointestinal bleeding 06/23/2025 Assessment & Plan (07/31/2025 3:44 PM EST): With Kori-Ribera tears and now a + [...] the date of the encounter. This includes ktcn-yh-iuaa time during the visit as well as non whek-ob-ynfy time spent on chart review, documentation, and care coordination. Acute kidney injury superimposed on chronic kidn ey disease 09/24/2024 Assessment & Plan (06/26/2025 8:55 AM EST): -ANNIE improving creatinine 4.3 mg/dL on admission this morning down to 3.9 mg/dLtoday down to 3.3 mg/dL this morning up to 3.7 mg/dL likely the result of initial brisk polyuria post IV furosemide demonstration presently appears very euvolemic good continue to hold diuretics today. -Anemia of CKD will give a dose of erythropoietin/Retacrit today. -Presently holding off on SGLT2 inhibitor -Hypertension noted slowly reintroduce carvedilol hydralazine Imdur and nifedipine - If clinical course stabilizes eventually will need to resume diuretics. - strict I/Os, daily weights, please avoid nephrotoxins (IV contrast, NSAIDs) - please dose reduce antibiotics/medications as appropriate for eGFR -Previous hospitalization with new findings EF 30-35% moderate global hypokinesis and diastolic dysfunction to follow-up with cardiology. -Eventually plan to follow-up with outpatient [place] airline lounge receptionist on discharge. Assessment & Plan (06/25/2025 8:06 AM EST): -ANNIE improving creatinine 4.3 mg/dL on admission this morning down to 3.9 mg/dLtoday down to 3.3 mg/dL - Polyuria noted post IV furosemide demonstration presently appears very euvolemic - Continue to monitor urine output closely would hold off on IV furosemide today. - Added iron studies May benefit from IV iron infusion, eventually will benefit from erythropoietin stimulating agent. -Presently holding off on SGLT2 inhibitor and diuretics -Hypertension noted slowly reintroduce carvedilol hydralazine Imdur and nifedipine - If clinical course stabilizes eventually will need to resume diuretics. - strict I/Os, daily weights, please avoid nephrotoxins (IV contrast, NSAIDs) - please dose reduce antibiotics/medications as appropriate for eGFR -Previous hospitalization with new findings EF 30-35% moderate global hypokinesis and diastolic dysfunction to follow-up with cardiology. -Eventually plan to follow-up with outpatient [place] airline lounge receptionist on discharge. Assessment & Plan (05/27/2025 8:42 AM EDT): - Labs pending this morning - Continue Lokelma 10 g for K5.4 or above. -Low K diet. -for now if no urgency for cardiac cath await until renal function stabilizes, if urgent cath required minimization IV contrast amount strategies and preemptively use of IVFs can be tried. -On discharge to follow-up with her outpatient [place] [facility] group. Assessment & Plan (05/26/2025 12:55 PM EDT): Noted to have stage IV CKD, baseline Cr 2.7 from diabetic nephropathy. At presentation creatinine is 3.9, up trended with diuresis to 4.8 no back down to prior levels. Her PCP notes indicates she follows both with nephrology and endocrinology at [facility] - renal u/s no hydronephrosis, no stones - Neprhology following - Lokelma for K > 5.4 - Will need outpatient follow up with [place] [facility] Assessment & Plan (05/26/2025 10:37 [...] -On discharge to follow-up with her outpatient [place] [facility] group. Assessment & Plan (05/25/2025 3:57 PM EDT): Noted to have stage IV CKD, at presentation creatinine is 3.9, higher than previous of 2.7 documented in September Her PCP notes indicates she follows both with nephrology and endocrinology at [facility] - renal u/s no hydronephrosis, no stones [...] follows both with nephrology and endocrinology at [facility] Will need very close monitoring of her [...] follows both with nephrology and endocrinology at [facility] Will need very close monitoring of her [...] follows both with nephrology and endocrinology at [facility] Will need very close monitoring of her [...] follows both with nephrology and endocrinology at [facility] Will need very close monitoring of her [...] follows both with nephrology and endocrinology at [facility] Will need very close monitoring of her [...] follows both with nephrology and endocrinology at [facility] Will need very close monitoring of her [...] follows both with nephrology and endocrinology at [facility] Will need very close monitoring of her [...] follows both with nephrology and endocrinology at [facility] Will need very close monitoring of her [...] follows both with nephrology and endocrinology at [facility] We will consult our airline lounge receptionist while she is here, diurese as above [...] secondary to hypertension 09/23/2024 Assessment & Plan (06/26/2025 8:55 AM EST): Assessment & Plan (06/25/2025 8:06 AM EST): Assessment & Plan (09/25/2024 10:38 AM EST): [...] Creatinine near her baseline back in March 1.7-2.4 mg/dL. Eventually will benefit from SGLT2 [...] SOB, CP, or dizziness. Referral placed to [facility] cardiology. Assessment & Plan (09/24/2024 12:36 PM [...] - monitor SPO2 - continue diuresis -Consulting airline lounge receptionist as above -Sodium restriction and education DM [...] for osteomyelitis of the right foot in [place] 08/2023. After surgery she was in a penitentiary until mid January, and has been at [...] this was arranged during her hospitalization at [place]) Assessment & Plan (04/04/2024 12:45 PM EDT): [...] wound care. I have advised they need [place] wound care involved again and they are [...] Overview (11/03/2022): She follows with vascular at [place]. She refused revascularization. Assessment & Plan (11/03/2022 1:16 PM EDT): We discussed risks leading to need for another amputation. She is adamant that she will not undergo revascularization, nor which she agreed to another amputation Her son and a Greek accounting machine operator were present during this conversation Primary insomnia 06/17/2021 Assessment & Plan (06/17/2021 [...] left left stump wound See by wound electric distribution checker & Plan (05/20/2025 6:58 PM EDT): The [...] left left stump wound See by wound electric distribution checker & Plan (05/19/2025 5:11 PM EDT): The [...] left left stump wound See by wound electric distribution checker & Plan (05/18/2025 4:47 PM EDT): The [...] Patient states she has not seen an bone puller recently She has a diabetic foot wound on the right and we will consult wound nurse Assessment & Plan (12/28/2024 10:18 PM EDT): She reports she has mostly remained compliant with insulin. She is following with diabetes and nephrology at [facility]. Again, discussed we are not receiving records [...] book appt w [facility] or [facility] endocrinology Assessment & Plan (09/30/2020 10:18 AM EST): S/p left BKA. Her blood sugar is uncontrolled. She is following w vascular doctor outside of [facility] Status post unilateral below knee amputation, [...] ordered and she was referred to GI Status post placement of cardiac pacemaker 09/14 Overview (12/26/2018): Pacemaker inserted August 2018 for [...] --Chest x-ray pacemaker interrogation tomorrow befor discharge Abnormal LFTs 11/02/2017 Assessment & Plan (05/26/2025 11:17 AM EDT): [...] labs. We'll continue to follow in a.m. Anemia 07/18/2017 Assessment & Plan (07/31/2025 3:38 PM EST): After GI bleed. Will need to check cbc for recheck Assessment & Plan (12/28/2024 10:14 PM EDT): She is agreeable to reschedule GI visit at this time. Given contact information to do so. Assessment & Plan (10/21/2024 3:07 PM EST): Scheduled with [facility] 11/14. Assessment & Plan (09/24/2024 12:36 PM [...] as directed. She is due for Medicare [id number] with new PCP in 3 months. Assessment [...] insulins as prescribed and recommend she see cadence specialists Assessment & Plan (09/28/2022 1:36 PM EST): [...] her know that I will be leaving [facility] so this is more reason for [...] have offered her referral several times to bone puller or [facility] [...] not believe she is capable of learning Romanian or learning to read at this point [...] non healing wound & gangrene Dr Puentes [facility] Assessment & Plan (11/03/2022 1:12 PM [...] is following w vascular doctor outside of [facility] Assessment & Plan (05/29/2018 8:51 PM EDT): No current wounds. Continue daily baby aspirin Assessment & Plan (07/18/2017 3:26 PM EST): She has not been taking her asa & I asked her to restart it. Referred to Dr. Cole. Resolved Problems Problem Noted Date Diagnosed Date Resolved Date High anion gap metabolic acidosis 06/24/2025 06/24/2025 Hypothermia 06/24/2025 06/24/2025 Acute combined systolic and diastolic congestive heart [...] until renal function stabilizes -Seen by Dr. Binh elliott who is in agreement with IV diuresis [...] not like side effects from multiple medications felt machine mechanic Echo-showed decrease in ejection fraction 30 to [...] until renal function stabilizes -Seen by Dr. Binh elliott who is in agreement with IV diuresis [...] not like side effects from multiple medications felt machine mechanic Echo-showed decrease in ejection fraction 30 to [...] not like side effects from multiple medications felt machine mechanic Echo Follow BMP closely It looks like [...] been discussed in the past with her airline lounge receptionist, details unknown. Staging of the later stages [...] failure-doubled creatinine-GFR is 20. She sees Dr. Bill-airline lounge receptionist in [place]. I called the phone number to talk with him but there was no answer-I left a voicemail. She was very adamant at the start of this visit that she did not want to go to the emergency room as she does not want to be admitted. I called her airline lounge receptionist office as she notes that she would [...] Diff to her daughter. I gave them [facility] phone number. I think it would be best for her to get on that plan & get a cyanide case hardener. I talked to son & afterwards to daughter on phone about urgent need to find her a dentist. Acute hyperkalemia 09/20/2021 Assessment & Plan (09/24/2024 12:36 PM [...] if K rises above 5.4 as per airline lounge receptionist - continue tele monitoring - EKG - [...] banana smoothies daily. We will recheck potassium. Constipation 09/30/2020 05/27/2025 Assessment & Plan (05/26/2025 [...] my nurse to call over to the [place] wound care to get her established as [...] U insulin given after most recent labs. Dysuria 11/02/2017 05/24/2020 Assessment & Plan (11/02/2017 [...] Assessment & Plan (08/25/2017 3:07 PM EST): eBlkys presents with an interpretor today in the [...] form was completed appropriately. I had the accounting machine operator re-sign and their copy today. Hyperglycemia [...] Care Plan Chronic Condition Self-Management No Jazmyn Adnerson, JULY Note: Barriers: No identified barriers Manage and adhere to medication treatment plan Care Plan Medication Management No Jazmyn Anderson, JULY Note: Barriers: No identified barriers Interventions Care Plan Interventions Intervention Entry Date Outcome Patient will take medications as prescribed 06/25/2018 [facility] will request PT-1 transportation for patient to [facility] 06/25/2018 [facility] will schedule [facility] appointment for patient 06/25/2018 Note:Luisito confirms she has the contact information for [facility]. Related Goals and Interventions Goal Associated Intervent ions Adhere to prescribed treatment plan [facility] will request PT-1 transportation for patient to [facility]; [facility] will schedule [facility] appointment for patient Manage and adhere to medicat ion treatment plan Patient will take medications as prescri bed
--- OUTSIDE RECORDS SUMMARY | 2025-08-05 19:47 | XMS_ITS | Clinical Summary ---
Author Organization [facility], Address [address] [facility] [address] [place] [address] Phone Care Team Providers Care Respiratory Care Assistant Name Role Phone Una Telles NP [...] ophthalmology and book appt w [facility] or [facility] endocrinology DM w nephropathy, neuropathy & retinopathy. [...] A1C 04/28/2022 01/26/2022 Influenza Vaccine (#1) 2025 3, 06/08/2020, 05/30/2018, Additional history exists Pneumococcal Vaccine: 50+ Years [...] Recently Relevant to Health Maintenance Insurance Medicaid [place] Medicare Care Teams Respiratory Care Assistant Relationship Specialty Start Date End Date Una Telles NP PCP - General 06/25/19
--- OUTSIDE RECORDS SUMMARY | 2025-08-05 19:47 | XMS_ITS | Encounter Summary ---
Author Organization [facility] Address [address] [place] [address] Phone Care Team Providers Care Stonehand Name Role Phone Deana, Afua DUBOIS Primary Care Provider [phone] Reason for Visit * Reason Onset Date Comments VNA Update 05/06/2025 Encounter Details Date Type Department Care Team (Late st Contact Info) Description 05/06/2025 Telephone [facility] [address] [place], [place] [id number] Deana Faua, CNP [address] [facility] [address] [place] [address] [email or web address] VNA Update Social History Tobacco Use Types [...] Job End Date Retired, previously worked at [employer] Not on file Not on file Not on file documented as of this encounter Functional Status * Calculated C-SSRS Risk Score (Lifetime/Recent) Answer Date of Assessment Author No Risk Indicated 06/23/2025 4:57 PM Pedrito Perrin RN * [place] Suicide Severity Rating Scale (Screener/Recent Self-Report) Question Answer Date of Assessment Author 1. Wish to be (Past 1 Month) No 06/23/2025 4:57 PM Pedrito Perrin RN 2. Non-Specific Active Suici deana Thoughts (Past 1 Month) No 06/23/2025 4:57 PM Alvaro Perrin RN 6. Suicidal Behavior (Lifetime) No 4:57 PM Pedrito Perrin RN documented as of this encounter Progress Notes * Bertin Edge - 05/06/2025 1:55 PM EDT [facility]NA called in, Pt BP was 160/90 today, Pt had not taken her meds, unclear if she is taking themcorrectly, Pt daughter said the patient often refuses to take her medication. No call back needed. Central Support Airport Operations Specialist (Please do not reply to this user; this inbox is not monitored.) Thank you. documented in this encounter Plan of Treatment Upcoming Encounters Date Type Department Care Team (Late st Contact Info) Description 09/29/2025 11:00 AM EST Office Visit [facility] [address] [place] [address] Afua Leblanc, SHERLY [address] [facility], [address] [place] [address] [email or web address] Scheduled Procedures Name Priority Associated Diagnoses Date/Ti [...] documented as of this encounter Care Teams Stonehand Relationship Specialty Start Date End Date Afua Leblanc CNP [address] [place] [address], [address] [place] [address] [email or web address] PCP - General Nurse Practitioner 05/24/23 documented as of this encounter Additional Source Comments The information contained in this document represents components of the legal health record. It is not the complete legal health record.[facility]
--- OUTSIDE RECORDS SUMMARY | 2025-08-05 19:47 | XMS_ITS | Encounter Summary ---
Author Organization [facility] Address [address] [facility] [address] [place] [address] Phone Care Team Providers Care Dining Service Inspector Name Role Phone Afua Leblanc SHERLY Primary Care Provider Encounter Details Date Type Department Care Team (Late st Contact Info) Description 05/16/2025 Procedure [facility] [address] [place], [place] [id number] Social History Tobacco Use Types Packs/Day Years [...] Job End Date Retired, previously worked at [employer] Not on file Not on file Not on file documented as of this encounter Functional Status * Calculated C-SSRS Risk Score (Lifetime/Recent) Answer Date of Assessment Author No Risk Indicated 05/16/2025 8:00 PM EDT Wanda Flowers RN * [place] Suicide Severity Rating Scale (Screener/Recent Self-Report) Question [...] Description 09/29/2025 11:00 AM EST Office Visit [facility] Primary Care [facility] [address] [place] [address] Afua Leblanc CNP [address] [facility], [address] [place] [address] [email or web address] Scheduled Procedures Name Priority Associated Diagnoses Date/Ti [...] documented as of this encounter Care Teams Dining Service Inspector Relationship Specialty Start Date End Date Afua Leblanc CNP [address] [place] [address], [address] [place] [address] [email or web address] PCP - General Nurse Practitioner 05/24/23 documented as of this encounter Additional Source Comments The information contained in this document represents components of the legal health record. It is not the complete legal health record.[facility]
--- OUTSIDE RECORDS SUMMARY | 2025-08-05 19:48 | XMS_ITS | Encounter Summary ---
Author Organization [facility] Address [address] [facility] [address] [place] [address] Phone Care Team Providers Care Pants Presser Automatic Name Role Phone Una Telles LEGAL INVESTIGATOR Primary Care Provider [phone] Jazmyn Anderson RN Unavailable [phone] Afua Leblanc LEGAL INVESTIGATOR Primary Care Provider Cayden Al MD Unavailable Marina Curry Unavailable [email or web address] Encounter Details Date Type Department Care Team (Late st Contact Info) Description 09/05/2018 Procedure Pass [facility] [address] [place] [address] Social History Tobacco Use Types Packs/Day Years [...] Description 09/29/2025 11:00 AM EST Office Visit [facility] [address] [place] [address] Afua Leblanc CNP [address] [facility] [address] [place] [address] [email or web address] Scheduled Procedures Name Priority Associated Diagnoses Date/Ti [...] documented as of this encounter Care Teams Pants Presser Automatic Relationship Specialty Start Date End Date Una Telles CNP [address] [facility], 2nd [place] [address] PCP - General 06/08/17 05/23/23 Afua Leblanc CNP [address] [place] [address] [address] [place] [address] PCP - General Nurse Practitioner 05/24/23 Jazmyn Anderson, JULY [address] [place] [address] [email or web address] PHCM Commercial Photographer 05/30/18 03/07/19 Cayden Al MD [address] [place] [address], [facility] [address] [place] [address] [email or web address] Insurance Assigned Provider 11/25/23 08/26/24 Marina Curry [address] [place] [address] [email or web address] PHCM Community Sales Agent Casualty Insurance 12/30/24 12/30/24 documented as of this encounter Additional Source Comments The information contained in this document represents components of the legal health record. It is not the complete legal health record.[facility]
--- OUTSIDE RECORDS SUMMARY | 2025-08-05 19:48 | XMS_ITS | Encounter Summary ---
Author Organization [facility] Address [address] [facility] [address] [place] [address] Phone Care Team Providers Care Automatic Spreader Operator Name Role Phone Elfego, Una Aiken [facility] Primary Care Provider [phone] Afua Leblanc [facility] Primary Care Provider Cayden Al MD Unavailable Marina Curry Unavailable [email or web address] Encounter Details Date Type Department Care Team (Latest Contact Info) Description 11/04/2021 Transcribe Orders Virtual Department [address] [place] [address] Jai Jones MD [address] [facility] [address] [place] [address] [email or web address] Stage 3b chronic kidney disease (CKD) (Primary [...] 09/29/2025 11:00 AM EST Office Visit [facility] [address] [place] [address] Ashely Leblancghan, SHERLY [address] [facility], [address] [place] [address] [email or web address] [email or web address] Procedures Name Priority Associated Diagnoses Date/Ti [...] the right mid kidney. Otherwise, unremarkable renalsonography. us Jai Jones MD [facility] Final Result documented in this [...] Time PHQ-2 Depression Total Score: 0 09/01/19 10:01 AM EST documented as of this encounter Care Teams Automatic Spreader Operator Relationship Specialty Start Date End Date Una Telles CNP [address] [facility], 2nd [place] [address] PCP - General 06/08/17 05/23/23 Afua Leblanc CNP [address] [place] [address] 7 [place] [address] PCP - General Nurse Practitioner 05/24/23 Cayden Al MD [address] [place] [address] 7 [place] [address] [email or web address] Insurance Assigned Provider 11/25/23 08/26/24 Marina Curry [address] [place] [phone] [email or web address] PHCM Community Meat Products Demonstrator 12/30/24 12/30/24 documented as of this encounter Additional Source Comments The information contained in this document represents components of the legal health record. It is not the complete legal health record.[facility]
--- OUTSIDE RECORDS SUMMARY | 2025-08-05 19:48 | XMS_ITS | Encounter Summary ---
Author Organization [facility] Address [address] [place] [address] Phone Care Team Providers Care Shoes Hand Sewer Name Role Phone Una Telles WELL CLEANER Primary Care Provider [phone]- [phone] Jazmyn Anderson RN Unavailable [phone] Afua Leblanc WELL CLEANER Primary Care Provider Cayden Al MD Unavailable Marina Curry Unavailable [email or web address] Encounter Details Date Type Department Care Team (Late st Contact Info) Description 09/20/2018 Ancillary Orders [facility] Cardiology Clinic [address] [place] [address] Travis Donald MD [address] [place] [address] Social History Tobacco Use Types Packs/Day Years [...] Description 09/29/2025 11:00 AM EST Office Visit [facility] Primary Care [facility] [address] [place] [address] Afua Leblanc CNP [address] [facility], [address] [place] [address] [email or web address] Scheduled Procedures Name Priority Associated Diagnoses Date/Ti [...] documented as of this encounter Care Teams Shoes Hand Sewer Relationship Specialty Start Date End Date Una Telles CNP [address] [facility], 2nd [place] [address] PCP - General 06/08/17 05/23/23 Afua Leblanc CNP [address] [place] [address] [address] [place] [address] [email or web address] PCP - General Nurse Practitioner 05/24/23 Jazmyn Anderson, JULY [address] [place] [address] [email or web address] PHCM Blend Technician 05/30/18 03/07/19 Cayden Al MD [address] [place] [address] 7 [place] [address] [email or web address] Insurance Assigned Provider 11/25/23 08/26/24 Marina Curry [address] [place] [phone] [email or web address] PHCM Community Floor Steward/Stewardess 12/30/24 12/30/24 documented as of this encounter Additional Source Comments The information contained in this document represents components of the legal health record. It is not the complete legal health record.[facility]
--- OUTSIDE RECORDS SUMMARY | 2025-08-05 19:48 | XMS_ITS | Encounter Summary ---
Author Organization [facility] Address [address] [facility] [address] [place] [address] Phone Care Team Providers Care Physical Therapy Resident Name Role Phone Afua Leblanc SHERLY Primary Care Provider Encounter Details Date Type Department Care Team (Late st Contact Info) Description 06/24/2025 Procedure Pass [facility] Endoscopy Admitting Dept Virtual Department [address] [place], [place] [id number] Social History Tobacco Use Types Packs/Day Years Used Date Smoking Tobacco: Never Smokeless Tobacco: Never Alcohol Use Standard Drinks/Week Comments Not Currently 0 (1 standard drink = 0.6 oz pur e alcohol) none for years Home Health Assessment: Transportation Answer Date Recorded Lack of Transportation (Medical) No 06/28/2025 Lack of Transportation (Non-Medical) No 06/28/2025 Patient Unable or Declines to Respond No 06/28/2025 Child or Family Care Answer Date Record [...] Job End Date Retired, previously worked at [employer] Not on file Not on file Not on file documented as of this encounter Plan of Treatment Upcoming Encounters Date Type Department Care Team (Late st Contact Info) Description 09/29/2025 11:00 AM EST Office Visit [facility] Primary Care Clinic [address] [place] [address] Afua Leblanc SHERLY [address] [facility], [facility] 7 [place] [address] [email or web address] Scheduled Procedures Name Priority Associated Diagnoses Date/Ti [...] documented as of this encounter Care Teams Physical Therapy Resident Relationship Specialty Start Date End Date Afua Leblanc SHERLY [address] [facility] 7 [place] [address] [email or web address] PCP - General Nurse Practitioner 05/24/23 documented as of this encounter Additional Source Comments The information contained in this document represents components of the legal health record. It is not the complete legal health record.[facility]
--- OUTSIDE RECORDS SUMMARY | 2025-08-05 19:48 | XMS_ITS | Encounter Summary ---
Author Organization [facility] Address [address] [facility] [address] [place] [address] Phone Care Team Providers Care Public Space Attendant Name Role Phone Elfego Una Aiken [facility] Primary Care Provider [phone]- [phone] Jazmyn Anderson RN Unavailable [phone] Afua Leblanc SEAT JOINER Primary Care Provider Cayden Al MD Unavailable Marina Curry Unavailable [email or web address] Encounter Details Date Type Department Care Team (Late st Contact Info) Description 09/20/2018 Ancillary Orders Tina Oliveira Non-Invasive Cardiology [address] [place] [id number] Travis Donald MD [address] [facility] [place] [id number] [email or web address] Second degree heart block Social History Tobacco [...] Description 09/29/2025 11:00 AM EST Office Visit [facility] Primary Care [facility] [address] [place] [address] Afua Leblanc CNP [address] [facility], [address] [place] [address] Scheduled Procedures Name Priority Associated Diagnoses Date/Ti [...] documented as of this encounter Care Teams Public Space Attendant Relationship Specialty Start Date End Date Uan Telles CNP [address] [facility], 2nd [place] [address] PCP - General 06/08/17 05/23/23 Afua Leblanc CNP [address] [facility] 7 [place] [address] [email or web address] PCP - General Nurse Practitioner 05/24/23 Jazmyn Anderson, JULY [address] [place] [address] [email or web address] PHCM Manager Technical Training 05/30/18 03/07/19 Cayden Al MD [address] [facility] 7 [place] [address] [email or web address] Insurance Assigned Provider 11/25/23 08/26/24 Marina Curry [address] [place] [id number] [email or web address] PHCM Community Manager Estate 12/30/24 12/30/24 documented as of this encounter Additional Source Comments The information contained in this document represents components of the legal health record. It is not the complete legal health record.[facility]
--- OUTSIDE RECORDS SUMMARY | 2025-08-05 19:48 | XMS_ITS | Encounter Summary ---
Author Organization [facility] Address [address] [address] [place] [address] Phone Care Team Providers Care Technology Sales Specialist Name Role Phone Una Telles COACH OPERATOR Primary Care Provider [phone]- [phone] Jazmyn Anderson RN Unavailable [phone] Afua Leblanc COACH OPERATOR Primary Care Provider Cayden Al MD Unavailable Marina Curry Unavailable [email or web address] Encounter Details Date Type Department Care Team (Late st Contact Info) Description 01/03/2019 Ancillary Orders [facility] Cardiology Clinic [address] [place] [address] Travis Donald MD [address] [place] [address] [email or web address] SSS (sick sinus syndrome) Social History Tobacco [...] Description 09/29/2025 11:00 AM EST Office Visit [facility] Primary Care Clinic [address] [place] [address] Afua Leblanc, SHERLY [address] [facility], [address] [place] [address] [email or web address] [email or web address] Results Name Type Priority Associated Diagnoses Date /Time EP Device Check / Follow Up Cardiac Monitors Routine SSS (sick sinus syndrome) 01/09/2019 2:42 PM EDT Scheduled Orders Name Type Priority Associated Diagnoses Orde r Schedule EP Device Check / Follow Up Cardiac Monitors Routine SSS (sick sinus syndrome) Expected: 01/03/2019, Expires: 01/04/2020 Scheduled Procedures Name Priority Associated Diagnoses Date/Ti [...] documented as of this encounter Care Teams Technology Sales Specialist Relationship Specialty Start Date End Date Una Telles SHERLY Aiken [address] [facility], 2nd [place] [address] PCP - General 06/08/17 05/23/23 Afua Leblanc CNP [address] [place] [address] 7 [place] [address] PCP - General Nurse Practitioner 05/24/23 Jazmyn Anderson RN [address] [place] [address] PHCM Superintendent Local 05/30/18 03/07/19 Cayden Al MD [address] [place] [address] 7 [place] [address] Insurance Assigned Provider 11/25/23 08/26/24 Marina Curry [address] [place] [address] [email or web address] PHCM Community Woodworking Machine Operator 12/30/24 12/30/24 documented as of this encounter Additional Source Comments The information contained in this document represents components of the legal health record. It is not the complete legal health record.[facility]
--- OUTSIDE RECORDS SUMMARY | 2025-08-05 19:48 | XMS_ITS | Encounter Summary ---
Author Organization [facility] Address [address] [place] [address] Phone Care Team Providers Care Fellmongery Worker Name Role Phone Afua Leblanc CNP Primary Care Provider Marina Curry Unavailable [email or web address] Encounter Details Date Type Department Care Team (Late st Contact Info) Description 10/24/2024 Telephone [facility] Primary Care Clinic [address] [place], [place] [phone] Afua Leblanc CNP [address] [facility] 7 [place] [address] Social History Tobacco Use Types Packs/Day Years [...] Job End Date Retired, previously worked at [employer] Not on file Not on file Not on file documented as of this encounter Plan of Treatment Upcoming Encounters Date Type Department Care Team (Late st Contact Info) Description 09/29/2025 11:00 AM EST Office Visit [facility] Primary Care Clinic [address] [place] [address] Afua Leblanc CNP [address] [facility], [address] [place] [address] [email or web address] Scheduled Procedures Name Priority Associated Diagnoses Date/Ti [...] documented as of this encounter Care Teams Fellmongery Worker Relationship Specialty Start Date End Date Afua Leblanc CNP [address] [place] [address], [address] [place], [place] [phone] [email or web address] PCP - General Nurse Practitioner 05/24/23 Marina Curry [address] [place] [phone] [email or web address] PHCM Community Lpn Medical Assistant 12/30/24 12/30/24 documented as of this encounter Additional Source Comments The information contained in this document represents components of the legal health record. It is not the complete legal health record.[facility]
--- OUTSIDE RECORDS SUMMARY | 2025-08-05 19:48 | XMS_ITS | Clinical Summary ---
Author Organization [facility] Address [address] [facility] [address] [place] [phone] Phone Care Team Providers Care Breeding Manager Name Role Phone Afua Leblanc EMBLEM CUTTER Primary Care Provider Allergies Active Allergy Reactions Criticality Noted Date Comments Penicillins Rash,Unknown Medium 11/01/2017 Medications blood-glucose meter (FREESTYLE LITE METER) kitIndications:D M type 2, uncontrolled, with neuropathy Check blood sugar 3 times daily 90 each 11 8 Active aspirin 81 mg chewable tabletIndication s:Peripheral arterial disease Take 1 tablet (81 mg total) by mouth daily. 90 tablet 3 1 Active pen needle, diabetic 31 gauge x 15/64 NdleIndications: Diabetic retinopathy associated with type 2 diabetes mellitus, macular edema presence unspecified, unspecified laterality, unspecified retinopathy severity USE 4 TIMES DAILY 100 each 2 Active lancets (FREESTYLE) 28 gauge MiscIndications: Poorly controlled type 2 diabetes mellitus with neuropathy USE TO CHECK GLUCOSE THREE TIMES DAILY 100 each 3 3 Active NOVOFINE AUTOCOVER 30 gauge x 1/3 Ndle USE 1 UNIT 4 TIMES DAILY 100 each 4 Active insulin pen needles, disposable, (BD MARILOU 2ND GEN PEN NEEDLE) 32 gauge x /32 Ndle Inject 1 each under the skin 4 (four) times a day. 400 each 3 5 Active NIFEdipine (ADALAT CC) 60 MG 24 hr tabletIndication s:HTN (hypertension),C ongestive heart failure, unspecified HF chronicity, unspecified heart failure type Take 1 tablet (60 mg total) by mouth nightly at bedtime. 90 tablet 1 5 Active hydrALAZINE (APRESOLINE) 100 MG tabletIndication s:Congestive heart failure, unspecified HF chronicity, unspecified heart failure type Take 1 tablet (100 mg total) by mouth 3 (three) times a day. 270 tablet 1 5 Active carvedilol (COREG) 25 MG tablet Take 1 tablet (25 mg total) by mouth 2 (two) times a day with meals. 180 tablet 1 5 Active isosorbide mononitrate (IMDUR) 60 MG 24 hr tablet Take 1 tablet (60 mg total) by mouth daily. 90 tablet 2 5 Active empagliflozin (JARDIANCE) 10 mg tablet [The details of the medication are not available because there are pending changes by a home health clinician.] 90 tablet 2 5 Active Additional Information Patient taking differently:10 mg Oral Daily,If sugar is high, Reported on 07/31/2025 FREESTYLE LITE Strp stripsIndication s:Poorly controlled type 2 diabetes mellitus with neuropathy 1 each by Percutaneous route 3 (three) times a day before meals. DX: E11.29 300 strip 3 5 Active clopidogrel (PLAVIX) 75 mg tablet TAKE 1 TABLET BY MOUTH IN THE MORNING 90 tablet 5 Active torsemide (DEMADEX) 20 MG tablet Take 2 tablets (40 mg total) by mouth daily. 60 tablet 5 Active insulin glargine (LANTUS) 100 unit/mL injection vial Inject 5 Units under the skin nightly at bedtime. 1.5 mL 2 5 026 Active vitamin B cmplex 0-QY-Q-biotin (NONA-MONIQUE RX) 1-60-300 mg-mg-mcg TabIndications:C KD stage 4 secondary to hypertension Take 1 tablet by mouth daily. 30 tablet 5 Active insulin aspart U-100 (NOVOLOG) 100 unit/mL (3 mL) injection pen Inject 0-5 Units under the skin daily as needed (high blood sugar). ss 5 Active pantoprazole (PROTONIX) 40 MG tablet Take 1 tablet (40 mg total) by mouth 2 (two) times a day. 60 tablet Active sucralfate (CARAFATE) 1 gram tablet Take 1 tablet (1 g total) by mouth 2 (two) times a day before meals. 14 tablet Active cefpodoxime (VANTIN) 200 MG tablet Take 1 tablet (200 mg total) by mouth daily. 2 tablet Active Active Problems Problem Noted Date Diagnosed [...] the date of the encounter. This includes odxp-ik-kcrw time during the visit as well as non kdbd-rj-apkb time spent on chart review, documentation, and [...] cardiology. -Eventually plan to follow-up with outpatient [facility] professor of business administration on discharge. Assessment & Plan (06/25/2025 8:06 [...] cardiology. -Eventually plan to follow-up with outpatient [facility] professor of business administration on discharge. Assessment & Plan (05/27/2025 8:42 AM EDT): - Labs pending this morning - Continue Lokelma 10 g for K5.4 or above. -Low K diet. -for now if no urgency for cardiac cath await until renal function stabilizes, if urgent cath required minimization IV contrast amount strategies and preemptively use of IVFs can be tried. -On discharge to follow-up with her outpatient [facility] nephrology group. Assessment & Plan (05/26/2025 12:55 PM EDT): Noted to have stage IV CKD, baseline Cr 2.7 from diabetic nephropathy. At presentation creatinine is 3.9, up trended with diuresis to 4.8 no back down to prior levels. Her PCP notes indicates she follows both with nephrology and endocrinology at [facility] - renal u/s no hydronephrosis, no stones - Neprhology following - Lokelma for K > 5.4 - Will need outpatient follow up with [facility] Assessment & Plan (05/26/2025 10:37 [...] -On discharge to follow-up with her outpatient [facility] nephrology group. Assessment & Plan (05/25/2025 3:57 PM EDT): Noted to have stage IV CKD, at presentation creatinine is 3.9, higher than previous of 2.7 documented in September Her PCP notes indicates she follows both with nephrology and endocrinology at [facility] - renal u/s no hydronephrosis, no [...] follows both with nephrology and endocrinology at [facility] Will need very close monitoring of [...] follows both with nephrology and endocrinology at [facility] Will need very close monitoring of [...] follows both with nephrology and endocrinology at [facility] Will need very close monitoring of [...] follows both with nephrology and endocrinology at [facility] Will need very close monitoring of [...] follows both with nephrology and endocrinology at [facility] Will need very close monitoring of [...] follows both with nephrology and endocrinology at [facility] Will need very close monitoring of [...] follows both with nephrology and endocrinology at [facility] Will need very close monitoring of [...] follows both with nephrology and endocrinology at [facility] Will need very close monitoring of [...] follows both with nephrology and endocrinology at [facility] We will consult our professor of business administration while she is here, diurese as above [...] near her baseline back in March last 1.7-2.4 mg/dL. Suggest to increase carvedilol to [...] SOB, CP, or dizziness. Referral placed to [facility] cardiology. Assessment & Plan (09/24/2024 12:36 PM [...] - monitor SPO2 - continue diuresis -Consulting professor of business administration as above -Sodium restriction and education DM [...] for osteomyelitis of the right foot in [facility] 08/2023. After surgery she was in a residential until mid January, and has been at [...] this was arranged during her hospitalization at [facility]) Assessment & Plan (04/04/2024 12:45 PM EDT): [...] wound care. I have advised they need [facility] wound care involved again and they are [...] Overview (11/03/2022): She follows with vascular at [facility]. She refused revascularization. Assessment & Plan (11/03/2022 1:16 PM EDT): We discussed risks leading to need for another amputation. She is adamant that she will not undergo revascularization, nor which she agreed to another amputation Her son and a Ghanaian ops analyst were present during this conversation Primary insomnia [...] left left stump wound See by wound quarter lining smoother & Plan (05/20/2025 6:58 PM EDT): The [...] left left stump wound See by wound quarter lining smoother & Plan (05/19/2025 5:11 PM EDT): The [...] left left stump wound See by wound quarter lining smoother & Plan (05/18/2025 4:47 PM EDT): The [...] Patient states she has not seen an filler spreader recently She has a diabetic foot wound on the right and we will consult wound nurse Assessment & Plan (12/28/2024 10:18 PM EDT): She reports she has mostly remained compliant with insulin. She is following with diabetes and nephrology at [facility]. Again, discussed we are not receiving records [...] ophthalmology and book appt w [facility] or [facility] endocrinology Assessment & Plan (09/30/2020 10:18 AM EST): S/p left BKA. Her blood sugar is uncontrolled. She is following w vascular doctor outside of [facility] Status post unilateral below knee amputation, [...] Plan (10/21/2024 3:07 PM EST): Scheduled with [facility] 11/14. Assessment & Plan (09/24/2024 12:36 [...] as directed. She is due for Medicare [id number] with new PCP in 3 months. Assessment [...] insulins as prescribed and recommend she see mechanical integrity specialist Assessment & Plan (09/28/2022 1:36 PM [...] her know that I will be leaving [facility] so this is more reason [...] have offered her referral several times to filler spreader or [facility] in diabetes education [...] not believe she is capable of learning Bulgarian or learning to read at this point [...] non healing wound & gangrene Dr Puentes [facility] Assessment & Plan (11/03/2022 1:12 PM EDT): [...] is following w vascular doctor outside of [facility] Assessment & Plan (05/29/2018 8:51 PM EDT): No current wounds. Continue daily baby aspirin Assessment & Plan (07/18/2017 3:26 PM EST): She has not been taking her asa & I asked her to restart it. Referred to Dr. oCle. Resolved Problems Problem Noted Date Diagnosed Date [...] been discussed in the past with her professor of business administration, details unknown. Staging of the later stages [...] failure-doubled creatinine-GFR is 20. She sees Dr. Bill-professor of business administration in [place]. I called the phone number to talk with him but there was no answer-I left a voicemail. She was very adamant at the start of this visit that she did not want to go to the emergency room as she does not want to be admitted. I called her professor of business administration office as she notes that she would [...] Diff to her daughter. I gave them [facility] phone number. I think it would be best for her to get on that plan & get a foster care case manager. I talked to son & [...] if K rises above 5.4 as per professor of business administration - continue tele monitoring - EKG - [...] my nurse to call over to the [facility] wound care to get her established as [...] form was completed appropriately. I had the ops analyst re-sign and their copy today. Hyperglycemia 08/01/2018 Acute kidney injury 05/24/20 20 Assessment & Plan (08/01/2018 9:13 PM EST): Labs received after her visit. Nurses instructed to call patient and have her hold lisinopril/HCTZ, use insulin and increase water intake. metformin was stopped today. She will recheck labs in 2 days. She was referred to nephrology Encounters Date Type Department Care Team Description 025 11:30 AM EST Office Visit [facility] [address] [address] Cesar Nieves DO Anemia, unspecified type (Primary Dx); Acute upper gastrointestinal bleeding 025 12:30 PM EST Home Care Visit [facility] [address] [place] [phone] Yue Muhammad, PT PT DISCIPLINE DISCHARGE NON VISIT/TELEPHONE 025 12:00 PM EST Home Care Visit [facility] [address] [place] [phone] Keisha Ricketts RN SN OASIS DISCHARGE VISIT 025 Home Care Visit [facility] [address] [place] [phone] Keisha Ricketts RN CASE COMMUNICATION [address] [address] Shahab Shelby RN Labs 025 12:30 AM EST Home Care Visit [facility] [address] [place] [phone] Natalie Watts LPN WHARF TENDER HOME VISIT 025 Episode Documentation Update [facility] [address] [place] [address] Yue Solis 025 Episode Documentation Update [facility] [address] [place] [address] Jesus Solisa 025 11:30 AM EST Home Care Visit [facility] [address] [place] [address] Rebecca Peters, RN SN HOME VISIT 025 2:30 PM EST Home Care Visit [facility] [address] [place] [address] Jo Perdomo, PT PT EVALUATION 025 10:30 AM EST Home Care Visit [facility] [address] [place] [address] Rebecca Peters RN SN HOME VISIT 025 Home Care Visit [facility] [address] [place] [address] Jo Perdomo, PT TELEPHONE ENCOUNTER 025 Home Care Visit [facility] [address] [place] [address] Erica Wyman, OT TELEPHONE ENCOUNTER 025 10:00 AM EST Home Care Visit [facility] [address] [place] [address] Megha Jacobsen, RN MISSED VISIT 025 Home Care Visit [facility] [address] [place] [address] Megha Jacobsen, RN CASE COMMUNICATION 025 2:30 PM EST Home Care Visit [facility] [address] [place] [address] Rebecca Peters, RN SN OASIS RESUMPTION OF CARE ([place]) 025 Home Health Resumption of Care Planning [facility] [address] [place] [phone] Rhonda Mason, RN 025 Orders Only [facility] [address] [place] [address] Jarred Olivarez MD Kori-Ribera tear (Primary Dx) 025 1:09 PM EST - 025 1:24 PM EST Surgery [facility] Endoscopy Admitting Dept Virtual Department [address] [place] [phone] Jarred Olivarez MD ESOPHAGOGASTRODUODENOSCOPY 025 9:17 AM EST Anesthesia Event [facility] Endoscopy Admitting Dept Virtual Department [address] [place] [phone] Vlad Starkey Jr., DO 025 5:30 AM EST Ancillary Procedure [facility] [address] [place] [address] Elder Long, CRIMINAL JUSTICE SOCIAL WORKER 025 [facility] [address] [place] [address] Rebecca Peters, JULY SN OASIS TRANSFER 025 Telephone [facility] [address] [place] [address] Deana Afua, SHERLY Medication Question 025 Procedure Pass [facility] Endoscopy Admitting Dept Virtual Department [address] [place] [phone] 1:10 PM EST - 025 4:50 PM EST Hospital Encounter [facility] [address] [place] [address] Marcella Cruz MD Brewer, Allison V, MD Lipkin-Moore, Zachary M, MD Israeli, Diana A, Freddie Rm MD Discharge Disposition: Home or Self Care 025 Home Care Visit [facility] [address] [place] [address] Palmer Adams, JULY CASE COMMUNICATION Procedure Pass [facility] [address] [place] [address] [address] [address] [address] Afua Leblanc CNP VNA Update; Request For Order(s) 1:00 PM EDT [facility] [address] [place] [phone] Rebecca Peters, JULY SN HOME VISIT 11:00 AM EDT Office Visit [address] [address] Rodríguez Alcaraz MD Type II diabetes mellitus with peripheral circulatory disorder (Primary Dx); CKD stage 4 secondary to hypertension; Primary hypertension; Congestive heart failure, unspecified HF chronicity, unspecified heart failure type; Dental caries 12:30 AM EDT [facility] [address] [place] [phone] Natalie Watts LPN WHARF TENDER HOME VISIT 11:00 AM EDT [facility] [address] [place] [phone] Rebecca Peters, JULY SN HOME VISIT 025 1:30 PM EDT Home Care Visit [facility] [address] [place] [phone] Rebecca Peters, JULY SN HOME VISIT 025 1:45 AM EDT [facility] [address] [place] [phone] Ericka Cross, JULY SN HOME VISIT Telephone [address] [address] Afua Leblanc CNP Appointment (Tcm+cdmg +/3. Discharge Date:05/27/25/. Reason for Visit+ Diagnosis:fluid retention/) 1:30 AM EDT Home Care Visit [facility] [address] [place] [address] Natalie Watts LPN WHARF TENDER HOME VISIT 2:30 PM EDT Home Care Visit [facility] [address] [place] [address] Rebecca Peters RN SN HOME VISIT 12:30 AM EDT Home Care Visit [facility] [address] [place] [address] Natalie Watts LPN LPN HOME VISIT Episode Documentation Update [facility] [address] [place] [address] Judy Vidal 12:30 PM EDT Home Care Visit [facility] [address] [place] [address] Rebecca Peters RN SN HOME VISIT Home Care Visit [facility] [address] [place] [address] Palmer Adams, RN CASE COMMUNICATION Home Care Visit [facility] [address] [place] [address] Natalie Watts LPN LPN HOME VISIT Orders Only [facility] Virtual Department [address] [place] [address] Altagracia Fisher MD 10:15 AM EDT Home Care Visit [facility] [address] [place] [address] Palmer Adams, RN SN OASIS START OF CARE (SOC) 10/08/[address] [facility] [address] [place] [address] Afua Leblanc CNP VNA Update 025 Plan of Care Documentation [facility] [address] [place] [phone] 025 Home Care Visit [facility] [address] [place] [address] Rebecca Peters, RN SN NON OASIS DISCHARGE NON VISIT/TELEPHONE 025 Orders Only [facility] [address] [place] [phone] Homehealth, Interface Provider, 025 Home Care Visit [facility] [address] [place] [phone] Rebecca Peters RN SN OASIS TRANSFER 025 3:06 PM EDT - 025 5:14 PM EDT Hospital Encounter [facility] [address] [place] [address] Rafael Fay MD Wong, MD Mariia Guerin Shasta A, MD Miskovsky, Glenn E, MD Grachev, Maksim, DO Discharge Disposition: Home-Health Care [facility] Procedure Pass [facility] [address] [place] [address] 025 1:00 PM EDT Home Care Visit [facility] [address] [place] [address] Rebecca Peters, JULY SN HOME VISIT [address] [address] Afua Leblanc CNP FYI (Rebecca went in to change the pt wound, and notice pt face is swollen pt seems to be confused, BP is 140/100 pt refused to go to ED, pt is not taken meds correctly. Best call back number [phone]) 025 Home Care Visit [facility] [address] [place] [address] Chen Shelton, RN TELEPHONE ENCOUNTER 025 Home Care Visit [facility] [address] [place] [phone] La Nena Chanel, JULY TELEPHONE ENCOUNTER [address] [facility] [address] [place] [address] Afua Leblanc CNP Medication Refill 025 11:30 AM EDT Home Care Visit [facility] [address] [place] [phone] Ruby Bravo RN SN HOME VISIT [address] [facility] [address] [place] [address] Afua Leblanc CNP VNA Update from Last 3 Months Immunizations Immunization Administration Dates Next Due INFLUENZA, SPLIT VIRUS, TRIV ALENT W/ PRESERVATIVE IM 05/21/2016 Influenza High-Dose Quadriva lent Preservative Free IM 09/28/2022,06/08/2020 Influenza High-Dose Trivalen t Preservative Free IM 06/26/2025(Deferred: Patient Refused),05/30/2018,07/18/2017, 016 Pneumococcal conjugate PCV13 07/18/2017 Pneumococcal polysaccharide PPSV23 [...] Job End Date Retired, previously worked at [employer] Not on file Not on file Not on file Last Filed Vital Signs Vital Sign Reading Time Taken Comments Blood Pressure 138/90 07/31/2025 11:58 AM EST Pulse 73 07/31/2025 11:34 AM EST Temperature 35.9 C (96.6 F) 07/31/2025 11:34 AM EST Respiratory Rate 16 07/23/2025 12:32 PM EST Oxygen Saturation 95% 07/31/2025 11:34 AM EST Inhaled Oxygen Concentration - - Weight 63.7 kg (140 lb 6.9 oz) 06/26/2025 6:22 A M EST Height 167.6 cm (5' 5.98 ) 07/31/2025 11:[address] Body Mass Index 22.67 06/24/2025 6:00 PM EST Plan of Treatment Upcoming Encounters Date Type Department Care Team (Late st Contact Info) Description 09/29/2025 11:00 AM EST Office Visit [facility] [address] [place] [address] Afua Leblanc CNP [address] [facility], [address] [place] [address] [email or web address] Scheduled Procedures Name Priority Associated Diagnoses Date/Ti me ESOPHAGOGASTRODUODENOSCOPY Kori-Ribera tear Health Maintenance Due Date Last Done Comments [...] Additional history exists LIPID PANEL 04/03/2025 04/03/2024, 10/19, 06/08/2020, Additional history exists COVID-19 VACCINE (2024- season) 2025 Adult Td,Tdap Booster 09/03/2025 09/03/2015 HEMOGLOBIN A1C 12/22/2025 06/24/2025, 04/22, 09/24/2024, Additional history exists DEPRESSION SCREENING 12/27/2025 12/27/2024 BLOOD PRESSURE 01/29/2026 07/31/2025 PNEUMOCOCCAL VACCINES (50+ years) Completed 08/01/2018, 07/18/2017 HEPATITIS C SCREENING Completed 09/23/2024 , 09/23/2024, 09/23/2024, Additional history exists SMOKING STATUS SCREENING (Once After 26 Yrs) Completed 06/24/2025 HEPATITIS A VACCINES Aged Out No long [...] identified barriers Medical Devices Implanted Type Area Perl Software Engineer Device Identifier Shelf Expiration Date Model / Serial / Lot Lead Pacemaker Capsure Fix Novus Is-1 Bi Atr/Vntr Evelyne 52 Cm - [id number] Implanted:Qt y: 1 on 09/05/2018 by Matteo Rodriguez MD at [facility] Lead Left: Right Ventricle [employer] [id number] 06/21/2020 5076-52 / [id number] / Lead Pacemaker Capsure Fix Novus Is-1 Bi Atr/Vntr Evelyne 45 Cm - [id number] Implanted:Qt y: 1 on 09/05/2018 by Matteo Rodriguez MD at [facility] Lead Left: Atrium [employer] 06/21/2020 5076-45 / [id number] / Device Pacemaker [place] Xt Dr Crane - [id number] Implanted:Qt y: 1 on 09/05/2018 by Matteo Rodriguez MD at [facility] Pacemaker Left: Chest Wall [employer] [id number] 01/16/2020 [id number] / [id number] / Procedures Procedure Name Priority Date/Time Associated Diagnosis Comments CREATINE KINASE (CK) Routine 07/23/2025 1:35 PM EST Type 2 diabetes mellitus with ESRD (end-stage renal disease) BUN Routine 07/23/2025 1:35 PM EST Type 2 diabetes mellitus with ESRD (end-stage renal disease) ELECTROLYTES Routine 07/23/2025 1:35 PM EST Type 2 diabetes mellitus with ESRD (end-stage renal disease) POCT GLUCOSE Routine 06/26/2025 7:33 AM EST POCT GLUCOSE Routine 06/26/2025 6:40 AM EST HELICOBACTER PYLORI ANTIGEN, STOOL Routine 06/26/2025 12:30 AM EST POCT GLUCOSE Routine 06/26/2025 12:21 AM EST MAGNESIUM Timed 06/25/2025 6:13 PM EST BASIC METABOLIC PANEL (BMP) Timed 12/2024 6:13 PM EST POCT GLUCOSE Routine 06/25/2025 4:18 PM EST POCT GLUCOSE Routine 06/25/2025 11:47 AM EST LAB ADD-ON Routine 06/25/2025 10:58 AM EST POCT GLUCOSE Routine 06/25/2025 8:32 AM EST LAB ADD-ON Routine 06/25/2025 8:07 AM EST POCT GLUCOSE Routine 06/25/2025 6:34 AM EST LFTS (HEPATIC PANEL) Routine 06/25/2025 4:42 AM EST IRON AND IRON BINDING CAPACITY Routine 06/25/2025 4:42 AM EST FERRITIN Routine 06/25/2025 4:42 AM EST MAGNESIUM Timed 06/25/2025 4:42 AM EST IONIZED CALCIUM Timed 06/25/2025 4:42 AM EST BASIC METABOLIC PANEL (BMP) Timed 12/2024 4:42 AM EST PHOSPHORUS Timed 06/25/2025 4:42 AM EST CBC Timed 06/25/2025 4:42 AM EST POCT GLUCOSE Routine 06/24/2025 11:32 PM EST MAGNESIUM Timed 06/24/2025 10:02 PM EST IONIZED CALCIUM Timed 06/24/2025 10:02 PM EST BASIC METABOLIC PANEL (BMP) Timed 11/2024 10:02 PM EST CBC Timed 06/24/2025 10:02 PM EST POCT GLUCOSE Routine 06/24/2025 5:37 PM EST PROCALCITONIN Timed 06/24/2025 2:12 PM EST MAGNESIUM Timed 06/24/2025 2:12 PM EST LACTATE (BLOOD GAS) Routine 06/24/2025 2:12 PM EST IONIZED CALCIUM Timed 06/24/2025 2:12 PM EST BASIC METABOLIC PANEL (BMP) Timed 11/2024 2:12 PM EST CBC Timed 06/24/2025 2:12 PM EST POCT GLUCOSE Routine 06/24/2025 11:33 AM EST ESOPHAGOGASTRODUODENOSCOPY 06/24 9:19 AM EST egd ENDOSCOPY PROCEDURE 06/24/2025 9:17 AM EST POCT GLUCOSE Routine 06/24/2025 8:04 AM EST IP CONSULT TO WOUND NURSE Routine 2024 6:56 AM EST POCT GLUCOSE Routine 06/24/2025 6:14 AM EST US BEDSIDE Routine 06/24/2025 5:27 AM EST Acute upper gastrointestinal bleeding INSERT PERIPHERAL IV Routine 06/24/2025 5:27 AM EST Acute upper gastrointestinal bleeding POCT GLUCOSE Routine 06/24/2025 5:14 AM EST CREATININE (RANDOM URINE) Routine 2024 4:11 AM EST UREA NITROGEN, RANDOM URINE Routine 11/2024 4:11 AM EST SODIUM, RANDOM URINE Routine 06/24/2025 4:11 AM EST TSH WITH REFLEX Routine 06/24/2025 4:08 AM EST HEMOGLOBIN A1C Routine 06/24/2025 4:08 AM EST CBC Timed 06/24/2025 4:08 AM EST PT-INR Timed 06/24/2025 4:08 AM EST LFTS (HEPATIC PANEL) Timed 06/24/2025 4:08 AM EST NT-PROBNP Timed 06/24/2025 4:08 AM EST PHOSPHORUS Timed 06/24/2025 4:08 AM EST MAGNESIUM Timed 06/24/2025 4:08 AM EST IONIZED CALCIUM Timed 06/24/2025 4:08 AM EST BASIC METABOLIC PANEL (BMP) Timed 11/2024 4:08 AM EST POCT GLUCOSE Routine 06/24/2025 3:58 AM EST POCT GLUCOSE Routine 06/24/2025 2:38 AM EST TRANSFUSE CRYOPRECIPITATE Routine 2024 2:29 AM EST TRANSFUSE CRYOPRECIPITATE Routine 2024 2:24 AM EST POCT GLUCOSE Routine 06/24/2025 1:16 AM EST TRANSFUSE RED BLOOD CELLS STAT 2024 12:41 AM EST PREPARE CRYOPRECIPITATE STAT 06/24/20 12:37 AM EST POCT GLUCOSE Routine 06/24/2025 12:[address] ABDOMEN/PELVIS WITHOUT CONTRAST Routine 06/23/2025 11:55 PM EST POCT GLUCOSE Routine 06/23/2025 10:41 PM EST CBC Timed 06/23/2025 10:37 PM EST OSMOLALITY, SERUM Routine 06/23/2025 10:34 PM EST FIBRINOGEN Timed 06/23/2025 10:34 PM EST LACTATE (BLOOD GAS) Routine 06/23/2025 10:34 PM EST PHOSPHORUS Timed 06/23/2025 10:34 PM EST MAGNESIUM Timed 06/23/2025 10:34 PM EST BASIC METABOLIC PANEL (BMP) Timed 10/2024 10:34 PM EST POCT GLUCOSE Routine 06/23/2025 9:23 PM EST TRANSFUSE RED BLOOD CELLS Routine 2024 9:12 PM EST TRANSFUSE RED BLOOD CELLS STAT 2024 8:13 PM EST URINE SEDIMENT STAT 06/23/2025 7:21 PM EST URINALYSIS WITH REFLEX TO URINE CULTURE STAT 06/23/2025 7:21 PM EST POCT GLUCOSE STAT 06/23/2025 7:03 PM EST ECG 12-LEAD STAT 06/23/2025 6:35 PM EST LACTATE (BLOOD GAS) STAT 06/23/2025 6:00 PM EST TROPONIN STAT 06/23/2025 6:00 PM EST PREPARE RBC Routine 06/23/2025 3:55 PM EST TYPE AND SCREEN (ABO, RH, ANTIBODY SCREEN) STAT 06/23/2025 3:55 PM EST TYPE AND SCREEN (ABO,RH,ANTIBODY SCREEN) STAT 06/23/2025 3:55 PM EST BLOOD CULTURE, ROUTINE STAT 3:50 PM EST BLOOD CULTURE, ROUTINE STAT 3:50 PM EST CBC AND DIFFERENTIAL STAT 06/23/2025 2:54 PM EST ETHANOL, BLOOD STAT 06/23/2025 2:54 PM EST NT-PROBNP STAT 06/23/2025 2:54 PM EST TROPONIN STAT 06/23/2025 2:54 PM EST VENOUS BLOOD GAS STAT 06/23/2025 2:54 PM EST LACTATE (BLOOD GAS) STAT 06/23/2025 2:54 PM EST PT-INR STAT 06/23/2025 2:54 PM EST LIPASE STAT 06/23/2025 2:54 PM EST MAGNESIUM STAT 06/23/2025 2:54 PM EST LFTS (HEPATIC PANEL) STAT 06/23/2025 2:54 PM EST BASIC METABOLIC PANEL (BMP) STAT 10/2024 2:54 PM EST CBC AND DIFFERENTIAL STAT 06/23/2025 2:54 PM EST ABO2F - 2ND TYPE (NEW SAMPLE) STAT 2:52 PM EST ECG 12-LEAD STAT 06/23/2025 2:10 PM EST POCT GLUCOSE STAT 06/23/2025 2:06 PM EST XR CHEST PORTABLE Routine 06/23/2025 1:39 PM EST POCT GLUCOSE Routine 05/27/2025 11:58 AM EDT POCT GLUCOSE Routine 05/27/2025 8:02 AM EDT PHOSPHORUS Routine 05/27/2025 5:35 AM EDT MAGNESIUM Routine 05/27/2025 5:35 AM EDT COMPREHENSIVE METABOLIC PANE L (CMP) Routine 05/27/2025 5:35 AM EDT CBC Routine 05/27/2025 5:35 AM EDT POCT GLUCOSE Routine 05/26/2025 8:08 PM EDT POCT GLUCOSE Routine 05/26/2025 4:50 PM EDT POCT GLUCOSE Routine 05/26/2025 11:41 AM EDT PHOSPHORUS STAT 05/26/2025 7:48 AM EDT MAGNESIUM STAT 05/26/2025 7:48 AM EDT CBC STAT 05/26/2025 7:48 AM EDT BASIC METABOLIC PANEL (BMP) STAT 01/2025 7:48 AM EDT POCT GLUCOSE Routine 05/26/2025 [...] 05/25/2025 6:05 AM EDT BASIC METABOLIC PANEL (BMP) Routine 12/2024 6:05 AM EDT POCT GLUCOSE Routine 05/24/2025 7:16 PM EDT POCT GLUCOSE Routine 05/24/2025 4:27 PM EDT OSMOLALITY (URINE, RANDOM) Routine 05/24 12:37 PM EDT POCT GLUCOSE Routine 05/24/2025 11:51 AM EDT POCT GLUCOSE Routine 05/24/2025 7:36 AM EDT OSMOLALITY, SERUM Routine 05/24/2025 5:33 AM EDT BASIC METABOLIC PANEL (BMP) Routine 11/2024 5:33 AM EDT POCT GLUCOSE Routine 05/23/2025 7:57 PM EDT POCT GLUCOSE Routine 05/23/2025 4:22 PM EDT POCT GLUCOSE Routine 05/23/2025 12:22 PM EDT BASIC METABOLIC PANEL (BMP) STAT 10/2024 10:52 AM EDT POCT GLUCOSE Routine 05/23/2025 8:03 AM EDT CBC Routine 05/23/2025 5:19 AM EDT POCT GLUCOSE Routine 05/22/2025 7:59 PM EDT POCT GLUCOSE Routine 05/22/2025 5:00 PM EDT POCT GLUCOSE Routine 05/22/2025 1:04 PM EDT BASIC METABOLIC PANEL (BMP) Routine 09/2024 12:45 PM EDT NC MYOCARDIAL PERFUSION PHARMACOLOGIC STRESS MULTIPLE Routine 05/22/2025 12:36 PM EDT Chest pain on breathing NC100 (TECH ORDER ONLY) NC STRESS TEST WITH NUCLEAR IMAGING Routine 05/22/2025 11:29 AM EDT Chest pain on breathing XR CHEST 1 VIEW Imaging in AM 05/22/2025 8:33 AM EDT POCT GLUCOSE Routine 05/22/2025 7:29 AM EDT BASIC METABOLIC PANEL (BMP) Routine 09/2024 6:03 AM EDT POCT GLUCOSE Routine 05/21/2025 8:12 PM EDT POCT GLUCOSE Routine 05/21/2025 4:30 PM EDT POCT GLUCOSE Routine 05/21/2025 11:34 AM EDT POCT GLUCOSE Routine 05/21/2025 7:34 AM EDT BASIC METABOLIC PANEL (BMP) Routine 08/2024 5:58 AM EDT CBC AND DIFFERENTIAL Routine 05/21/2025 5:58 AM EDT POCT GLUCOSE Routine 05/20/2025 7:53 PM EDT POCT GLUCOSE Routine 05/20/2025 5:17 PM EDT POCT GLUCOSE Routine 05/20/2025 4:44 PM EDT POCT GLUCOSE Routine 05/20/2025 11:53 AM EDT POCT GLUCOSE Routine 05/20/2025 7:33 AM EDT BASIC METABOLIC PANEL (BMP) Routine 04/23 5:26 AM EDT CBC AND DIFFERENTIAL Routine 05/20/2025 5:26 AM EDT POCT GLUCOSE Routine 05/19/2025 7:19 PM EDT POCT GLUCOSE Routine 05/19/2025 4:49 PM EDT POCT GLUCOSE Routine 05/19/2025 11:33 AM EDT POCT GLUCOSE Routine 05/19/2025 7:28 AM EDT COMPREHENSIVE METABOLIC PANE L (CMP) Routine 05/19/2025 5:52 AM EDT CBC AND DIFFERENTIAL Routine 05/19/2025 5:52 AM EDT POCT GLUCOSE Routine 05/18/2025 8:01 PM EDT POCT GLUCOSE Routine 05/18/2025 4:51 PM EDT POCT GLUCOSE Routine 05/18/2025 12:00 PM EDT US KIDNEYS Routine 05/18/2025 10:06 AM EDT POCT GLUCOSE Routine 05/18/2025 7:51 AM EDT COMPREHENSIVE METABOLIC PANE L (CMP) Routine 05/18/2025 7:26 AM EDT CBC AND DIFFERENTIAL Routine 05/18/2025 7:26 AM EDT POCT GLUCOSE Routine 05/18/2025 3:53 AM EDT POCT GLUCOSE Routine 05/18/2025 3:01 AM EDT MAGNESIUM STAT 05/18/2025 1:56 AM EDT BASIC METABOLIC PANEL (BMP) STAT 04/22 1:56 AM EDT BASIC METABOLIC PANEL (BMP) Timed 04/22 8:17 PM EDT POCT GLUCOSE Routine 05/17/2025 [...] Routine 05/17/2025 6:44 AM EDT COMPREHENSIVE METABOLIC PANE L (CMP) Routine 05/17/2025 6:44 AM EDT CBC AND DIFFERENTIAL Routine 05/17/2025 6:44 AM EDT OSMOLALITY (URINE, RANDOM) Routine 05/17 5:56 AM EDT SODIUM, RANDOM URINE Routine 05/17/2025 5:56 AM EDT POCT GLUCOSE Routine 05/16/2025 8:02 PM EDT IP CONSULT TO WOUND NURSE Routine 2024 7:56 PM EDT XR CHEST PORTABLE Routine [...] 05/16/2025 3:19 PM EDT BASIC METABOLIC PANEL (BMP) STAT 04/22 3:19 PM EDT CBC AND DIFFERENTIAL STAT 05/16/2025 3:19 PM EDT HEPATITIS C ANTIBODY, QUALITATIVE STAT 09/23/2024 4:12 AM EST LIPID PANEL Routine 04/03/2024 2:25 PM EDT Pure hypercholesterolemia from Last 3 Months or Most Recently Relevant to Health Maintenance Results * (ABNORMAL) Blood Urea Nitrogen (BUN) (07/23/2025 1:35 PM EST) BUN 37(H) 6 - 23 mg/dL 07/23/2025 3:15 PM [facility] Blood (Blood) Venipuncture / Unknown 07/23/2025 1:35 PM EST 07/23/2025 1:35 PM EST Oleg Bill MD LAB BLOOD BKR ORD ERABLES Final Result Performing Organization Address City/[facility]/ZIP Co de Phone Number [address] [address] * Creatine Kinase (CK) (07/23/2025 1:35 PM EST) Creatine Kinase (CK) 70 26 - 192 U/L 07/23/2025 3:15 PM [facility] Blood (Blood) Venipuncture / Unknown 07/23/2025 1:35 PM EST 07/23/2025 1:35 PM EST Oleg Bill MD LAB BLOOD BKR ORD ERABLES Final Result Performing Organization Address City/[facility]/ZIP Co de Phone Number [address] [address] * (ABNORMAL) Electrolytes (07/23/2025 1:35 PM EST) Sodium 135(L) 136 - 145 mmol/L 07/23/2025 3:15 PM [facility] Potassium 5.7(H) 3.4 - 5.1 mmol/L 07/23/2025 3:15 PM [facility] Comment:NOTE: Specimen hemol yzed. Results may be falsely increased. Chloride 101 98 - 107 mmol/L 07/23/2025 3:15 PM [facility] CO2 24 20 - 31 mmol/L 07/23/2025 3:15 PM [facility] Anion Gap 10 3 - 17 mmol/L 07/23/2025 3:15 PM [facility] Blood (Blood) Venipuncture / Unknown 07/23/2025 1:35 PM EST 07/23/2025 1:35 PM EST us Oleg Bill MD LAB BLOOD BKR ORD ERABLES Final Result Performing Organization Address [facility] Co de Phone Number [address] [address] * (ABNORMAL) POCT Glucose (06/26/2025 7:33 AM EST) Only the most recent of21 resultswithin the time period is included. Glucose 169(H) 70 - 99 mg/dL 06/26/2025 7:34 AM EST [facility] Blood (Blood) 06/26/2025 7:3 3 AM EST 06/26/2025 7:34 AM EST us Freddie Hoyos MD LAB POCT DOCKED DEVICE UNSO LICTED RESULTS Final Result Performing Organization Address [facility] Co de Phone Number [address] [address] * Helicobacter pylori Antigen, Stool (06/26/2025 12:30 AM EST) Stool (Per Rectum) 06/26/2025 12:30 AM EST 06/26/2025 12:35 AM EST Narrative [facility] - 07/23/2025 7:23 PM EST Please check attached report for results us Jose Luis Copeland MD LAB BODY FLUIDS AND ST OOL ORDERABLES Final Result Performing Organization Address [facility]/ZIP Co de Phone Number [facility] [address] [address], [facility] * Magnesium (06/25/2025 6:13 PM EST) Only the most recent of11 resultswithin the time period is included. Magnesium 2.0 1.7 - 2.6 mg/dL 06/25/2025 6:50 PM EST [facility] Blood (Blood) Venipuncture / Unknown 06/25/2025 6:13 PM EST 06/25/2025 6:19 PM EST us Jose Luis Copeland MD LAB BLOOD BKR ORDERABL ES Final Result [address] [address] * (ABNORMAL) Basic Metabolic Panel (BMP) (06/25/2025 6:13 PM EST) Only the most recent of18 resultswithin the time period is included. Sodium 136 136 - 145 mmol/L 06/25/2025 6:50 PM [facility] Potassium 3.9 3.4 - 5.1 mmol/L 06/25/2025 6:50 PM [facility] Chloride 100 98 - 107 mmol/L 06/25/2025 6:50 PM [facility] CO2 22 20 - 31 mmol/L 06/25/2025 6:50 PM [facility] Anion Gap 14 3 - 17 mmol/L 06/25/2025 6:50 PM [facility] BUN 85(H) 6 - 23 mg/dL 06/25/2025 6:50 PM [facility] Creatinine 3.70(H) 0.50 - 1.00 mg/dL 06/25/2025 6:50 PM [facility] eGFR 12(L) >59 mL/min/1.7 3m2 06/25/2025 6:50 PM [facility] Comment:Estimated glomerular filtration rate calculated using the CKD-EPI refit equation. Glucose 219(H) 70 - 99 mg/dL 06/25/2025 6:50 PM [facility] Calcium 8.7 8.5 - 10.5 mg/dL 06/25/2025 6:50 PM [facility] Blood (Blood) Venipuncture / Unknown 06/25/2025 6:13 PM EST 06/25/2025 6:19 PM EST Jose Luis Copeland MD LAB BLOOD BKR ORDERABL ES Final Result Performing Organization Address [facility]/ZIP Co de Phone Number [address] [address] * Lab Add-On (06/25/2025 10:58 AM EST) Only the most recent of2 resultswithin the time period is included. Specimen Date/Time 06/25/2025 ~4 am 06/26/2025 11:18 AM [facility] Test Requested LFTs 06/26/2025 11:18 AM [facility] Specimen Description 06/26/2025 11:18 AM [facility] Comments 06/26/2025 11:18 AM [facility] Was this request processed? Yes 06/26/2025 11:18 AM [facility] Other (Other) 06/25/2025 10: 58 AM EST 06/25/2025 10:58 AM EST Jose Luis Copeland MD LAB GENERAL ORDERABLES Final Result Performing Organization Address [facility] Co de Phone Number [address] [address] * (ABNORMAL) Hepatic Panel (LFTs) (06/25/2025 4:42 AM EST) Only the most recent of4 resultswithin the time period is included. AST 154(H) <33 U/L 06/25/2025 12:46 PM [facility] Comment:NOTE: Specimen hemol yzed. Results may be falsely increased. ALT 191(H) <34 U/L 06/25/2025 12:46 PM [facility] Alkaline Phosphatase 45 40 - 130 U/L 06/25/2025 12:46 PM [facility] Bilirubin, Total 0.2 0.0 - 1.2 mg/dL 06/25/2025 12:46 PM [facility] Bilirubin, Direct 0.1 0.0 - 0.3 mg/dL 06/25/2025 12:46 PM [facility] Total Protein 6.3(L) 6.4 - 8.3 g/dL 06/25/2025 12:46 PM [facility] Albumin 3.1(L) 3.5 - 5.2 g/dL 06/25/2025 12:46 PM [facility] Globulin 3.2 1.9 - 4.1 g/dL 06/25/2025 12:46 PM [facility] Blood (Blood) Catheter/Line / Unknown 06/25/2025 4:42 AM EST 06/25/2025 5:30 AM EST us Jose Luis Copeland MD LAB BLOOD BKR ORDERABL ES Final Result Performing Organization Address [facility]/ZIP Co de Phone Number [address] [address] * Iron and Total Iron Binding Capacity (Iron/TIBC) (06/25/2025 4:42 AM EST) Iron 76 28 - 170 ug/dL 06/25/2025 10:57 AM [facility] Total Iron-Binding Capacity (TIBC) 241 220 - 460 ug/dL 06/25/2025 10:57 AM [facility] Transferrin Saturation 32 14 - 50 % 06/25/2025 10:57 AM [facility] Blood (Blood) Catheter/Line / Unknown 06/25/2025 4:42 AM EST 06/25/2025 5:30 AM EST us Jai Jones MD LAB BLOOD BKR ORDERABLES Final R esult [address] [address] * (ABNORMAL) CBC (06/25/2025 4:42 AM EST) Only the most recent of8 resultswithin the time period is included. WBC 8.87 4.00 - 11.00 K/uL 06/25/2025 5:37 AM [facility] RBC 3.24(L) 4.00 - 5.20 M/uL 06/25/2025 5:37 AM [facility] Hemoglobin 9.3(L) 12.0 - 16.0 g/dL 06/25/2025 5:37 AM [facility] Hematocrit 26.9(L) 36.0 - 46.0 % 06/25/2025 5:37 AM [facility] MCV 83.0 80.0 - 100.0 fL 06/25/2025 5:37 AM [facility] MCH 28.7 27.0 - 31.0 pg 06/25/2025 5:37 AM [facility] MCHC 34.6 32.0 - 36.0 g/dL 06/25/2025 5:37 AM [facility] PLT 142(L) 150 - 450 K/uL 06/25/2025 5:37 AM [facility] MPV 11.2 8.4 - 12.0 fL 06/25/2025 5:37 AM [facility] RDW-CV 14.3 11.5 - 14.5 % 06/25/2025 5:37 AM [facility] Absolute NRBC 0.02(H) <=0.00 K cells/uL 06/25/2025 5:37 AM [facility] NRBC 0.2(H) <=0.0 /100 WBCs 06/25/2025 5:37 AM [facility] Blood (Blood) Catheter/Line / Unknown 06/25/2025 4:42 AM EST 06/25/2025 5:30 AM EST us Elder Long [employer] LAB BLOOD BKR ORDERABLES Final R esult [facility] [address] [place] [address] * Phosphorus (06/25/2025 4:42 AM EST) Only the most recent of5 resultswithin the time period is included. Phosphorus 3.6 2.5 - 4.5 mg/dL 06/25/2025 6:04 AM [facility] Blood (Blood) Catheter/Line / Unknown 06/25/2025 4:42 AM EST 06/25/2025 5:30 AM EST Jose Luis Copeland MD LAB BLOOD BKR ORDERABL ES Final Result Performing Organization Address [facility] Co de Phone Number [address] [address] * (ABNORMAL) Ferritin (06/25/2025 4:42 AM EST) Ferritin 278(H) 30 - 150 ug/L 06/25/2025 10:57 AM EST [facility] Comment:The lower limit of t he reference range has been increased to 30 ug/L for all adults to reflect a physiologically sufficient level. See Document Link for additional information. Blood (Blood) Catheter/Line / Unknown 06/25/2025 4:42 AM EST 06/25/2025 5:30 AM EST Jai Jones MD LAB BLOOD BKR ORDERABLES Final R esult Performing Organization Address [facility] de Phone Number [address] [address] * (ABNORMAL) Ionized Calcium (06/25/2025 4:42 AM EST) Only the most recent of4 resultswithin the time period is included. Ionized Calcium 1.06(L) 1.14 - 1.30 mmol/L 06/25/2025 5:47 AM EST [facility] Blood (Blood, Venous) Catheter/Line / Unknown 06/25/2025 4:42 AM EST 06/25/2025 5:44 AM EST Result [facility] Jose Luis Copeland MD LAB BLOOD BKR ORDERABL ES Final Result Performing Organization Address [facility] Co de Phone Number [address] [address] * Lactate, Whole Blood (06/24/2025 2:12 PM EST) Only the most recent of4 resultswithin the time period is included. Lactate, Whole Blood 1.7 0.5 - 2.0 mmol/L 06/24/2025 2:22 PM EST [facility] Blood (Blood, Venous) Venipuncture / Unknown 06/24/2025 2:12 PM EST 06/24/2025 2:16 PM EST Jose Luis Copeland MD LAB BLOOD BKR ORDERABL ES Final Result Performing Organization Address [facility] Co de Phone Number [address] [address] * (ABNORMAL) Procalcitonin (06/24/2025 2:12 PM EST) Procalcitonin 2.27(H) 0.00 - 0.25 ng/mL 06/24/2025 3:08 PM EST [facility] Comment: <=0.25 ng/mL: Bacterial pneumonia is unlikely. <0.5 ng/mL: Low likelihood of systemic bacterial infection / sepsis. Localized infection is possible. 0.5-2.0 ng/mL: Systemic bacterial infection / sepsis is possible, but other conditions can induce PCT levels in this range as well (e.g., pancreatitis, severe trauma, circulatory shock, surgery, javier, inhalation injury). >2.0 ng/mL: Systemic bacterial infection / sepsis is likely. Additional information can be found in the [employer] Procalcitonin Guidelines, available in the Document Link. Blood (Blood) Venipuncture / Unknown 06/24/2025 2:12 PM EST 06/24/2025 2:17 PM EST Jose Luis Copeland MD LAB BLOOD BKR ORDERABL ES Final Result Performing Organization Address [facility]/ZIP Co de Phone Number [address] [address] * ENDOSCOPY PROCEDURE (06/24/2025 9:17 AM EST) Narrative Transcriptions Jarred Olivarez MD - 06/24/2025 9:17 AM EST [facility] Patient Name: Belkys Florian Attending MD:: JARRED OLIVAREZ MD, , Procedure Date: 06/24/2025 9:17 AM Date of : 1950 Age: 74 Admit Type: Inpatient Gender: Female Room: [place] [address] Referring MD: Afua Leblanc Exam Type: Upper GI endoscopy Indications: Hematemesis Medications: Monitored Anesthesia Care Procedure: Informed consent was obtained from the patientafter discussion of the indications, limitations, alternatives, benefits, and risks of the procedure. Risks specifically discussed include but are not limited to medication reactions, missed lesions, bleeding, perforation, or the need for emergent surgery. Throughout the procedure, the patient's blood pressure, pulse, end-tidal CO2, and oxygensaturations were monitored continuously. The Olympus gastroscope GIF-HQ190 # 5 wasintroduced through the mouth, and advanced to the second partof duodenum. The upper GI endoscopy was accomplished without difficulty. The patient tolerated the procedure well. Complications: No immediate complications. Estimated blood loss:None. Findings: The examined duodenum was normal. A small hiatal hernia was present. The exam of the stomach was otherwise normal. LA Grade C (one or more mucosal breaks continuous between tops of 2 or more mucosal folds, less than75% circumference) esophagitis with no bleeding wasfound. A non-bleeding Kori-Ribera tear with stigmata of recent bleeding was found. The exam of the esophagus was otherwise normal. Impression: - Normal examined duodenum. - Small hiatal hernia. - LA Grade C esophagitis with no bleeding. - Kori-Ribera tear. Likely source of bleeding. - No specimens collected. Recommendation: - Return patient to ICU for ongoing care. - Clear liquid diet. - Use Protonix (pantoprazole) 40 mg PO BID. - Repeat upper endoscopy in 8 weeks to check healing. - Check stool H pylori Ag - Use carafate 2-4 times per day. JARRED OLIVAREZ MD, 06/24/2025 9:41:06 AM This report has been signed electronically. Number of Addenda: 0 Note Initiated On: 06/24/2025 9:17 AM Procedure Code(s): --- Professional --- 05576, Esophagogastroduodenoscopy, flexible, transoral; diagnostic, including collection of specimen(s) by brushing or washing, when performed (separate procedure) --- Technical --- 95423, Esophagogastroduodenoscopy, flexible, transoral; diagnostic, including collection of specimen(s) by brushing or washing, when performed (separate procedure) Diagnosis Code(s): --- Professional --- K44.9, Diaphragmatic hernia without obstruction or gangrene K20.90, Esophagitis, unspecified without bleeding K22.6, Gastro-esophageal laceration-hemorrhagesyndrome K92.0, Hematemesis --- Technical --- K44.9, Diaphragmatic hernia without obstruction or gangrene K20.90, Esophagitis, unspecified without bleeding K22.6, Gastro-esophageal laceration-hemorrhagesyndrome K92.0, Hematemesis CPT copyright 2021 [employer]. All rights reserved. The codes documented in this report are preliminary and upon inpatient coder reviewmay be revised to meet current compliance requirements. Procedure Date: 06/24/2025 9:17:[address] [place] [id number] Afua Leblanc [employer] GI PROCEDURE ORDERABLES Alejandra freddy Result * US BEDSIDE (06/24/2025 5:27 AM EST) Anatomical Region Laterality Modality Ultrasound Narrative 06/24/2025 5:27 AM EST Elder Long NP 06/24/2025 5:27 AM Bedside Ultrasound Date/Time: 06/24/2025 5:27 AM Performed by: Elder Long NP Authorized by: Elder Long NP Exam Type: Procedural Guidance Procedural Guidance: Indication: Procedural Guidance Bedside Ultrasound was used to perform Peripheral IV Placement. Please see separately documented procedure note to see details of procedure. Accession Number: [id number] us Elder Long NP IMG POINT OF CARE EXAMS Final Re sult * Insert Peripheral IV Under US Guidance (06/24/2025 5:27 AM EST) Narrative Elder Long NP - 06/24/2025 5:27 AM EST Elder Long NP 06/24/2025 5:27 AM Insert Peripheral IV Under US Guidance Date/Time: 06/24/2025 5:27 AM Performed by: Elder Long NP Authorized by: Elder Long NP Indications: Indications: Vascular access Procedure details: Preparation: Skin prepped with Hibiclens Skin prep agent dried: Skin prep agent completely dried prior to procedure Location: Left upper extremity IV size: 20 Ultrasound guidance: dynamic Number of attempts: 1 Successful placement: Yes Post-procedure: Post-procedure: Dressing applied Assessment: Blood return Patient tolerance: Patient tolerated the procedure well with no immediate complications Routine venipuncture: No. Physician/QHP Skill Required: Yes. Rationale: Previous unsuccessful attempts at routine venipuncture. Images: Images saved: Yes us Elder Long NP IV THERAPY ORDERABLES Final Resu lt * (ABNORMAL) Urea Nitrogen, Random Urine (06/24/2025 4:11 AM EST) Urea Nitrogen, Urine 651(L) 801 - 1,666 mg/dL 06/24/2025 5:05 AM EST [facility] Urine (Urine, Voided) Non-Blood Collection / Unknown 06/24/2025 4:11 AM EST 06/24/2025 4:22 AM EST Elder Long [employer] LAB URINE ORDERABLES Final Resul t Performing Organization Address [facility] de Phone Number [address] [address] * Sodium, Random Urine (06/24/2025 4:11 AM EST) Only the most recent of3 resultswithin the time period is included. Sodium, Urine 76 mmol/L 06/24/2025 5:05 AM EST [facility] Urine (Urine, Voided) Non-Blood Collection / Unknown 06/24/2025 4:11 AM EST 06/24/2025 4:22 AM EST [facility] - 06/24/2025 5:05 AM EST The reference interval(s) are unavailable for this specimen type. Comparison of this result with other laboratory results, such as the concentration in the blood, serum, or plasma, is recommended. The test result should be integrated into the clinical context for interpretation. Elder Long NP LAB URINE ORDERABLES Final Resul t Performing Organization Address [facility] de Phone Number [address] [address] * Creatinine, Random Urine (06/24/2025 4:11 AM EST) Creatinine, Urine 32 mg/dL 06/24/2025 5:05 AM EST [facility] Urine (Urine, Voided) Non-Blood Collection / Unknown 06/24/2025 4:11 AM EST 06/24/2025 4:22 AM EST [facility] - 06/24/2025 5:05 AM EST The reference interval(s) are unavailable for this specimen type. Comparison of this result with other laboratory results, such as the concentration in the blood, serum, or plasma, is recommended. The test result should be integrated into the clinical context for interpretation. Elder Long NP LAB URINE ORDERABLES Final Resul t Performing Organization Address City/[facility] de Phone Number [address] [address] * Thyroid Stimulating Hormone (TSH), with Reflex (06/24/2025 4:08 AM EST) Pathologist [facility] TSH 1.80 0.40 - 5.90 uIU/mL 06/24/2025 5:01 AM [facility] Blood (Blood) Catheter/Line / Unknown 06/24/2025 4:08 AM EST 06/24/2025 4:24 AM EST us Elder Long [employer] LAB BLOOD BKR ORDERABLES Final R esult Performing Organization Address City/[facility]/ZIP Co de Phone Number [address] [address] * (ABNORMAL) PT-INR (06/24/2025 4:08 AM EST) Only the most recent of2 resultswithin the time period is included. Pathologist [facility] PT 15.1(H) 10.0 - 13.0 sec 06/24/2025 4:41 AM [facility] INR 1.2(H) 0.9 - 1.1 06/24/2025 4:41 AM [facility] Comment:Therapeutic Range 2. 0 - 3.5 Blood (Blood) Catheter/Line / Unknown 06/24/2025 4:08 AM EST 06/24/2025 4:24 AM EST us Elder Long [employer] LAB BLOOD BKR ORDERABLES Final R esult [address] [address] * (ABNORMAL) NT-proBNP (06/24/2025 4:08 AM EST) Only the most recent of3 resultswithin the time period is included. NT-ProBNP 5,288(H) 0 - 900 pg/mL 06/24/2025 5:01 AM [facility] Comment: Age <50 years: 0-450 pg/ml Age 50-75 years: 0-900 pg/ml Age >75 years: 0-1800 pg/ml A NT-proBNP <300 pg/ml effectively rules out acute congestive heart failure, with 99% negative predictive value. NT-proBNP cutoffs were developed for the diagnosis of heart failure. Marked elevations in NT-proBNP levels may be observed in states other than left ventricular congestive heart failure. Falsely low NT-proBNP in congestive heart failure patients may be observed with increasing body-mass index. Blood (Blood) Catheter/Line / Unknown 06/24/2025 4:08 AM EST 06/24/2025 4:24 AM EST us Elder Long NP LAB BLOOD BKR ORDERABLES Final R esult Performing Organization Address [facility] Co de Phone Number [address] [address] * (ABNORMAL) Hemoglobin A1c (06/24/2025 4:08 AM EST) Only the most recent of2 resultswithin the time period is included. Hemoglobin A1c 6.2(H) 4.3 - 5.6 % 06/24/2025 4:53 AM EST [facility] Calculated Mean Blood Glucose 131 mg/dL 06/24/2025 4:53 AM EST [facility] Comment:There is no establis [facility] normal range for the Estimated Average Glucose (EAG). However, a HbA1c of 5.6% (upper limit of normal) represents an EAG of 114 mg/dL. The diagnostic HbA1c level for diabetes is greater than or equal to 6.5%, which represents an EAG greater than or equal to 140 mg/dL. Blood (Blood) Catheter/Line / Unknown 06/24/2025 4:08 AM EST 06/24/2025 4:24 AM EST us Elder Long NP LAB BLOOD BKR ORDERABLES Final R esult Performing Organization Address [facility] Co de Phone Number [address] [address] * Transfuse Cryoprecipitate (06/24/2025 2:54 AM EST) Only the most recent of2 resultswithin the time period is included. us Elder Long NP NURSING TREATMENT ORDERABLES - B LOOD ADMIN Final Result Performing Organization Address [facility] Co de Phone Number [id number] * Transfuse RBC (06/24/2025 1:55 AM EST) Only the most recent of3 resultswithin the time period is included. us Marina Head MD NURSING TREATMENT ORDERABLE S - BLOOD ADMIN Final Result Performing Organization Address [facility] de Phone Number [email or web address] * Prepare Cryoprecipitate, 2 Pools (06/24/2025 12:37 AM EST) Unit Number [id number] 06/24/2025 1:19 AM EST [facility] Component Type TH CRYO POOL 06/24/2025 1:19 AM EST [facility] Blood Product Code [id number] 06/24/2025 1:19 AM EST [facility] Unit Division 00 06/24/2025 1:19 AM [facility] Product Status TRANSFUSED 06/24/2025 2:54 AM EST [facility] Unit Number [id number] 06/24/2025 1:19 AM EST [facility] Component Type TH CRYO POOL 06/24/2025 1:19 AM [facility] Blood Product Code [id number] 06/24/2025 1:19 AM [facility] Unit Division 00 06/24/2025 1:19 AM [facility] Product Status TRANSFUSED 06/24/2025 2:53 AM EST [facility] 06/24/2025 12:3 7 AM EST us Elder Long NP BLOOD BANK PRODUCT ORDERABLES Fi nal Result Performing Organization Address [facility] Co de Phone Number [facility] [address] [place] [address] [facility] [address] [place] [address] * CT ABDOMEN/PELVIS WITHOUT CONTRAST (06/23/2025 11:55 PM EST) 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 [facility] Anatomical Region Laterality Modality Abdomen, Pelvis Computed Tomogra phy 06/24/2025 12:5 3 AM EST Impressions 06/24/2025 1:19 AM EST * Hyperattenuating material most conspicuously seen in the gastric antrum/proximal duodenum is nonspecific on this noncontrast enhanced CT, but highly concerning for blood products and potential active bleeding in the setting of hematemesis. * No specific evidence of large bowel inflammation, bowel obstruction, bowel perforation or CT evident ulcer on limited examination. * Diffuse bladder wall thickening with a Vergara catheter in the largely decompressed bladder. Relation with urinalysis is recommended to exclude cystitis. * Small left and puujz-rc-xdfbzezd right pleural effusions. * Bronchial wall thickening in the right greater than left lower lobes with multifocal mucus plugging concerning for potential aspiration/aspirated blood products. * Mild dilation of the pancreatic duct which appears similar to prior MRCP from 01/09/2019. Nonemergent follow-up MRCP could be considered. A clinically significant result was initiated on 06/24/2025 1:19 AM, Message ID [id number]. Narrative 06/24/2025 1:[address] ABDOMEN/PELVIS WITHOUT CONTRAST Referring clinician's provided indication for this examination in Epic: * Abdominal distension; Hematesis with elevated lactate, low H/H and abdominal distension; CKD with ANNIE - unable to use contrast TECHNIQUE: Multidetector-row CT of the abdomen and pelvis was performed without intravenous contrast using tailored dose modulation techniques. Images were reconstructed in the axial, coronal, and sagittal planes. COMPARISON: MRI ABDOMEN WITH AND WITHOUT CONTRAST ABSENCE OF INTRAVENOUS CONTRAST DECREASES SENSITIVITY FOR DETECTION OF FOCAL LESIONS AND VASCULAR PATHOLOGY. FINDINGS: Lower Chest: Small left and ytejb-by-vxikepwj right pleural effusions. Diffuse bronchial wall thickening with areas of mucus plugging in the right lower lobe suggestive of potential small volume aspiration. Partially visualized pacemaker leads within the right atrium and right ventricle. Liver: No suspicious focal hepatic lesions noting that evaluation is significantly limited by lack of IV contrast and extensive streak artifact from the patient's upper extremities. Biliary: None inflamed gallbladder. No significant bile duct dilation. Spleen: No splenomegaly. Pancreas: Mild dilation of the pancreatic duct measuring up to 5 mm; similar to prior MRI from 01/09/2019. No definite contour deforming mass lesion. Adrenal Glands: No discrete nodules. Kidneys/Ureters: Simple cyst in the lateral aspect of the middle third of the right kidney. No obstructing stones or hydronephrosis. Bowel: Hyperattenuating material in the region of the gastric antrum (4:341) is nonspecific on this noncontrast enhanced examination, but is suspicious for blood products given history of hematemesis. No specific evidence of large bowel inflammation. No bowel obstruction. Noninflamed appendix. Peritoneum/Retroperitoneum: No masses, pneumoperitoneum, or fluid. Lymph Nodes: No lymphadenopathy. Pelvic Organs/Bladder: No adnexal mass. Diffuse bladder wall thickening which may in part be due to underdistention in the setting of Vergara catheterization. Air within the bladder lumen likely related to catheterization. Vessels: Circumferential calcification of the abdominal aortic branch vasculature. No abdominal aortic aneurysm. Bones/Soft Tissues: Subcutaneous nodules along the anterior abdominal wall measuring up to 17 mm (4:618) possibly reflecting sequela of prior subcutaneous injection. Moderate rectus diastases. No acute displaced fracture. No overtly suspicious lytic or blastic osseous lesions. Degenerative changes of the bilateral sacroiliac joints. Procedure Note Kar Ann MD - 06/24/2025 CT ABDOMEN/PELVIS WITHOUT CONTRAST Referring clinician's provided indication for this examination in Epic: *Abdominal distension; Hematesis with elevated lactate, low H/H andabdominal distension; CKD with ANNIE - unable to use contrast TECHNIQUE: Multidetector-row CT of the abdomen and pelvis was performedwithout intravenous contrast using tailored dose modulation techniques.Images were reconstructed in the axial, coronal, and sagittal planes. COMPARISON: MRI ABDOMEN WITH AND WITHOUT CONTRAST ABSENCE OF INTRAVENOUS CONTRAST DECREASES SENSITIVITY FOR DETECTION OFFOCAL LESIONS AND VASCULAR PATHOLOGY. FINDINGS: Lower Chest: Small left and vgrak-mx-ackzkxlz right pleural effusions.Diffuse bronchial wall thickening with areas of mucus plugging in theright lower lobe suggestive of potential small volume aspiration.Partially visualized pacemaker leads within the right atrium and rightventricle. Liver: No suspicious focal hepatic lesions noting that evaluation issignificantly limited by lack of IV contrast and extensive streak artifactfrom the patient's upper extremities. Biliary: None inflamed gallbladder. No significant bile duct dilation. Spleen: No splenomegaly. Pancreas: Mild dilation of the pancreatic duct measuring up to 5 mm;similar to prior MRI from 01/09/2019. No definite contour deforming masslesion. Adrenal Glands: No discrete nodules. Kidneys/Ureters: Simple cyst in the lateral aspect of the middle third ofthe right kidney. No obstructing stones or hydronephrosis. Bowel: Hyperattenuating material in the region of the gastric antrum(4:341) is nonspecific on this noncontrast enhanced examination, but issuspicious for blood products given history of hematemesis. No specific evidence of large bowel inflammation. No bowel obstruction.Noninflamed appendix. Peritoneum/Retroperitoneum: No masses, pneumoperitoneum, or fluid. Lymph Nodes: No lymphadenopathy. Pelvic Organs/Bladder: No adnexal mass. Diffuse bladder wall thickeningwhich may in part be due to underdistention in the setting of Foleycatheterization. Air within the bladder lumen likely related tocatheterization. Vessels: Circumferential calcification of the abdominal aortic branchvasculature. No abdominal aortic aneurysm. Bones/Soft Tissues: Subcutaneous nodules along the anterior abdominal wallmeasuring up to 17 mm (4:618) possibly reflecting sequela of priorsubcutaneous injection. Moderate rectus diastases. No acute displacedfracture. No overtly suspicious lytic or blastic osseous lesions.Degenerative changes of the bilateral sacroiliac joints. IMPRESSION: * Hyperattenuating material most conspicuously seen in the gastricantrum/proximal duodenum is nonspecific on this noncontrast enhanced CT,but highly concerning for blood products and potential active bleeding inthe setting of hematemesis. * No specific evidence of large bowel inflammation, bowel obstruction,bowel perforation or CT evident ulcer on limited examination. * Diffuse bladder wall thickening with a Vergara catheter in the largelydecompressed bladder. Relation with urinalysis is recommended to excludecystitis. * Small left and tlywe-ux-cmzqdoel right pleural effusions. * Bronchial wall thickening in the right greater than left lower lobeswith multifocal mucus plugging concerning for potentialaspiration/aspirated blood products. * Mild dilation of the pancreatic duct which appears similar to priorMRCP from 01/09/2019. Nonemergent follow-up MRCP could be considered. A clinically significant result was initiated on 06/24/2025 1:19 AM,Message ID [id number]. us Marcella Cruz MD IMG CT ABD/PELVIS Final Resu lt * (ABNORMAL) Fibrinogen (06/23/2025 10:34 PM EST) Fibrinogen 177(L) 200 - 400 mg/dL 06/23/2025 11:49 PM EST [facility] Blood (Blood) Catheter/Line / Unknown 06/23/2025 10:34 PM EST 06/23/2025 10:51 PM EST us Elder Long [employer] LAB BLOOD BKR ORDERABLES Final R esult Performing Organization Address City/[facility]/ZIP Co de Phone Number [address] [address] * (ABNORMAL) Osmolality, Blood (06/23/2025 10:34 PM EST) Only the most recent of4 resultswithin the time period is included. Osmolality 354(HH) 280 - 296 mOsm/kg water 06/23/2025 11:20 PM EST [facility] Blood (Blood) Catheter/Line / Unknown 06/23/2025 10:34 PM EST 06/23/2025 10:52 PM EST us Elder Long [employer] LAB BLOOD BKR ORDERABLES Final R esult Performing Organization Address City/[facility]/ZIP Co de Phone Number [address] [address] * (ABNORMAL) Urinalysis with Reflex to Urine Culture (06/23/2025 7:21 PM EST) Color Yellow Yellow 06/23/2025 8:29 PM EST [facility] Clarity Clear Clear 06/23/2025 8:29 PM [facility] Glucose 1+(A) Negative 06/23/2025 8:29 PM [facility] Bilirubin Urine Negative Negative 8:29 PM [facility] Ketone Urine Negative Negative 06/23/2025 8:29 PM [facility] Specific [place] 1.015 1.001 - 1.035 06/23/2025 8:29 PM [facility] Blood Negative Negative 06/23/2025 8:29 PM [facility] pH 6.0 5.0 - 8.0 06/23/2025 8:29 PM [facility] Protein 2+(A) Negative 06/23/2025 8:29 PM [facility] Nitrites Negative Negative 06/23/2025 8:29 PM [facility] Leukocyte Esterase Negative Negative 06/23/2025 8:29 PM [facility] Urobilinogen Negative Negative 06/23/2025 8:29 PM [facility] Urine (Urine, Voided) Non-Blood Collection / Unknown 06/23/2025 7:21 PM EST 06/23/2025 7:32 PM EST us Marcella Cruz MD LAB URINE ORDERABLES Final R esult [address] [address] * (ABNORMAL) URINE SEDIMENT (06/23/2025 7:21 PM EST) WBC 0-2 0 - 9 /hpf 06/23/2025 8:51 PM [facility] RBC 0-2 0 - 2 /hpf 06/23/2025 8:51 PM [facility] Squamous Epithelial Cells 1-2(A) Not Present /hpf 06/23/2025 8:51 PM [facility] Urine (Urine, Voided) Non-Blood Collection / Unknown 06/23/2025 7:21 PM EST 06/23/2025 7:32 PM EST us Marcella Cruz MD LAB URINE ORDERABLES Final R esult Performing Organization Address City/[facility]/ZIP Co de Phone Number [address] [address] * ECG 12-LEAD (06/23/2025 6:35 PM EST) Only the most recent of3 resultswithin the time period is included. Ventricular Rate EKG/MIN 67 BPM [facility] Atrial Rate 67 BPM [facility] OH Interval 204 ms [facility] QRS Duration 204 ms [facility] QT Interval 530 ms [facility] QTC Interval 560 ms [facility] P [place] 44 degrees [facility] R Wave [place] 62 degrees [facility] T Wave [place] 234 degrees [facility] 06/23/2025 6:35 PM EST 06/24/2025 9:19 AM EST Narrative [facility] - 06/24/2025 9:19 AM EST Atrial-sensed ventricular-paced rhythm Abnormal ECG When compared with ECG of 23-Jun-2025 14:10, Vent. rate has increased by 7 bpm Confirmed by Travis Schulz ([id number]) on 06/24/2025 9:19:26 AM Marcella Cruz MD ECG ORDERABLES Final Result Performing Organization Address [facility] Co de Phone Number [email or web address]_[email or web address] * (ABNORMAL) Troponin (06/23/2025 6:00 PM EST) Only the most recent of4 resultswithin the time period is included. Troponin-T HS Gen5 64(H) 0 - 9 ng/L 06/23/2025 7:46 PM EST [facility] Blood (Blood) 06/23/2025 6:0 0 PM EST 06/23/2025 6:09 PM EST Marcella Cruz MD LAB BLOOD BKR ORDERABLES Fin al Result Performing Organization Address City/[facility] Co de Phone Number [address] [address] * Type and Screen (ABO, Rh, Antibody Screen) (06/23/2025 3:55 PM EST) ABO/RH O Positive 06/23/2025 4:59 PM [facility] Antibody Screen Negative 06/23/2025 4:59 PM EST [facility] Sample Expires 06/26/2025,2 359 06/23/2025 4:59 PM EST [facility] Blood (Blood) Catheter/Line / Unknown 06/23/2025 3:55 PM EST 06/23/2025 4:05 PM EST us Marcella Cruz MD LAB BLOOD BANK TEST ORDERABL ES Final Result Performing Organization Address City/State/[facility] Co de Phone Number [facility], [address] [place] [phone] [address] * Prepare RBC (06/23/2025 3:55 PM EST) Unit Number [id number] 06/23/2025 5:02 PM [facility] Component Type APHER RBC LR C1 06/23/2025 5:02 PM [facility] Blood Product Code [id number] 06/23/2025 5:02 PM [facility] Unit Division 00 06/23/2025 5:02 PM [facility] Product Status TRANSFUSED 06/23/2025 9:28 PM EST [facility] Resulting Agency [facility] Unit Number [id number] 06/23/2025 5:02 PM [facility] Component Type RBC LR 06/23/2025 5:02 PM [facility] Blood Product Code [id number] 06/23/2025 5:02 PM [facility] Unit Division 00 06/23/2025 5:02 PM [facility] Product Status TRANSFUSED 06/23/2025 10:11 PM [facility] Issue Date/Time [id number] 06/23/2025 8:08 PM [facility] ISBT Product Code [id number] 06/23/2025 8:08 PM [facility] Unit Type and Rh O NEG 06/23/2025 8:08 PM [facility] ISBT Product Blood Type 9500 06/23/2025 8:08 PM [facility] Blood Product Expiration Date [id number] 06/23/2025 8:08 PM [facility] Issue Date/Time [id number] 06/23/2025 9:09 PM [facility]BT Product Code [id number] 06/23/2025 9:09 PM [facility] Unit Type and Rh O POS 06/23/2025 9:09 PM [facility] ISBT Product Blood Type 5100 06/23/2025 9:09 PM [facility] Blood Product Expiration Date [id number] 06/23/2025 9:09 PM [facility] Unit Number [id number] 06/23/2025 10:09 PM [facility] Component Type RBC LR 06/23/2025 10:09 PM [facility] Blood Product Code [id number] 06/23/2025 10:09 PM [facility] Unit Division 00 06/23/2025 10:09 PM [facility] Product Status RELEASED 06/27/2025 7:07 AM [facility] Unit Number [id number] 06/23/2025 10:09 PM [facility] Component Type RBC LR 06/23/2025 10:09 PM [facility] Blood Product Code [id number] 06/23/2025 10:09 PM [facility] Unit Division 00 06/23/2025 10:09 PM [facility] Product Status TRANSFUSED 06/24/2025 1:55 AM [facility] Issue Date/Time [id number] 06/24/2025 12:36 AM [facility] ISBT Product Code [id number] 06/24/2025 12:36 AM [facility] Unit Type and Rh O POS 06/24/2025 12:36 AM [facility] ISBT Product Blood Type 5100 06/24/2025 12:36 AM [facility] Blood Product Expiration Date [id number] 06/24/2025 12:36 AM EST [facility] 06/23/2025 3:55 PM EST us Marcella Cruz MD BLOOD BANK PRODUCT ORDERABLE S Final Result Performing Organization Address [facility]/ZIP Co de Phone Number [address] [address] * Blood Culture, Routine (06/23/2025 3:50 PM EST) Only the most recent of2 resultswithin the time period is included. Pathologist [facility] Blood Culture/Test No growth at 5 days 06/28/2025 4:25 PM EST [facility] Blood (Blood) Catheter/Line / Unknown 06/23/2025 3:50 PM EST 06/23/2025 4:11 PM EST us Marcella Cruz MD LAB MICROBIOLOGY CULTURE ORD ERABLES Final Result Performing Organization Address [facility] Co de Phone Number [address] [address] * Ethanol, Blood (06/23/2025 2:54 PM EST) Pathologist [facility] Ethanol <10 Negative; <11 mg/dL 06/23/2025 4:10 PM EST [facility] Blood (Blood) Catheter/Line / Unknown 06/23/2025 2:54 PM EST 06/23/2025 3:14 PM EST us Marcella Cruz MD LAB BLOOD BKR ORDERABLES Fin al Result Performing Organization Address City/[facility]/ZIP Co de Phone Number [address] [address] * (ABNORMAL) CBC and Differential (06/23/2025 2:54 PM EST) Pathologist [facility] WBC 9.16 4.00 - 11.00 K/uL 06/23/2025 4:21 PM [facility] RBC 1.51(L) 4.00 - 5.20 M/uL 06/23/2025 4:21 PM [facility] Hemoglobin 4.0(LL) 12.0 - 16.0 g/dL 06/23/2025 4:21 PM [facility] Comment:Checked by repeat an alysis Hematocrit 12.5(LL) 36.0 - 46.0 % 06/23/2025 4:21 PM [facility] Comment:Checked by repeat an alysis MCV 82.8 80.0 - 100.0 fL 06/23/2025 4:21 PM [facility] MCH 26.5(L) 27.0 - 31.0 pg 06/23/2025 4:21 PM [facility] MCHC 32.0 32.0 - 36.0 g/dL 06/23/2025 4:21 PM [facility] MPV 10.9 8.4 - 12.0 fL 06/23/2025 4:21 PM [facility] RDW-CV 13.9 11.5 - 14.5 % 06/23/2025 4:21 PM [facility] PLT 153 150 - 450 K/uL 06/23/2025 4:21 PM [facility] Neutrophils 88.8 % 06/23/2025 4:21 PM [facility] Lymphocytes 7.4 % 06/23/2025 4:21 PM [facility] Monocytes 3.3 % 06/23/2025 4:21 PM [facility] Eosinophils 0.0 % 06/23/2025 4:21 PM [facility] Basophils 0.0 % 06/23/2025 4:21 PM [facility] Imm Grans 0.5 % 06/23/2025 4:21 PM [facility] NRBC 0.0 <=0.0 /100 WBCs 06/23/2025 4:21 PM [facility] Absolute Neutrophils 8.13(H) 1.92 - 7.60 K/uL 06/23/2025 4:21 PM [facility] Absolute Lymphocytes 0.68(L) 0.72 - 4.10 K/uL 06/23/2025 4:21 PM [facility] Absolute Monocytes 0.30 0.16 - 1.10 K/uL 06/23/2025 4:21 PM [facility] Absolute Eosinophils 0.00 0.00 - 0.50 K/uL 06/23/2025 4:21 PM [facility] Absolute Basophils 0.00 0.00 - 0.15 K/uL 06/23/2025 4:21 PM [facility] Absolute Imm Grans 0.05 0.00 - 0.09 K/uL 06/23/2025 4:21 PM [facility] Absolute NRBC 0.00 <=0.00 K cells/uL 06/23/2025 4:21 PM [facility] Absolute Neutrophils 06/23/2025 4:21 PM [facility] Comment:Not Measured: Diff Type Auto 06/23/2025 4:21 PM [facility] Blood (Blood) Catheter/Line / Unknown 06/23/2025 2:54 PM EST 06/23/2025 3:14 PM EST us Marcella Cruz MD LAB BLOOD BKR ORDERABLES Fin al Result [address] [address] * (ABNORMAL) Lipase (06/23/2025 2:54 PM EST) Lipase 106(H) 13 - 60 U/L 06/23/2025 4:06 PM [facility] Blood (Blood) Catheter/Line / Unknown 06/23/2025 2:54 PM EST 06/23/2025 3:14 PM EST us Marcella Cruz MD LAB BLOOD BKR ORDERABLES Fin al Result [address] [address] * (ABNORMAL) Venous Blood Gas (VBG) (06/23/2025 2:54 PM EST) pH, Venous 7.32 7.31 - 7.41 06/23/2025 3:17 PM [facility] pCO2, Venous 42 35 - 45 mm[Hg] 06/23/2025 3:17 PM [facility] pO2, Venous 121(H) 35 - 40 mm[Hg] 06/23/2025 3:17 PM [facility] Base Excess -4.4(L) -3.0 - 3.0 mmol/L 06/23/2025 3:17 PM [facility] Bicarbonate (HCO3) 21(L) 23 - 28 mmol/L 06/23/2025 3:17 PM [facility] Oxygen Saturation, Venous 97.9(H) 60.0 - 80.0 % 06/23/2025 3:17 PM [facility] Blood (Blood, Venous) Catheter/Line / Unknown 06/23/2025 2:54 PM EST 06/23/2025 3:13 PM EST us Marcella Cruz MD LAB BLOOD BKR ORDERABLES Fin al Result [address] [address] * 2nd Type (New Sample) (06/23/2025 2:52 PM EST) ABO/RH O Positive 06/23/2025 5:01 PM EST [facility] Blood (Blood) Catheter/Line / Unknown 06/23/2025 2:52 PM EST 06/23/2025 4:34 PM EST us Marcella Cruz MD LAB BLOOD BANK TEST ORDERABL ES Final Result Performing Organization Address City/[facility]/ZIP Co de Phone Number [facility], [address] [place] [address] [address] * XR Chest Portable (06/23/2025 1:39 PM EST) Anatomical Region Laterality Modality Chest Computed Radiogr aphy 06/23/2025 2:37 PM EST Impressions 06/23/2025 2:41 PM EST Likely small pleural effusions, decreased. Narrative 06/23/2025 2:41 PM EST XR CHEST PORTABLE Referring clinician's provided indication for this examination in [facility]: Fatigue COMPARISON: XR CHEST PA AND LATERAL 2 VIEWS FINDINGS: Devices/Tubes/Lines: Unchanged left chest cardiac device. Lungs: Bibasilar opacity likely atelectasis. Pleura: Probable small pleural effusions, decreased from prior. Heart/Mediastinum: Normal heart and mediastinum. Bones/Soft Tissues: No significant abnormality. Procedure Note Filiberto Oseguera MD - 06/23/2025 XR CHEST PORTABLE Referring clinician's provided indication for this examination in [facility]:Fatigue COMPARISON: XR CHEST PA AND LATERAL 2 VIEWS FINDINGS: Devices/Tubes/Lines: Unchanged left chest cardiac device. Lungs: Bibasilar opacity likely atelectasis. Pleura: Probable small pleural effusions, decreased from prior. Heart/Mediastinum: Normal heart and mediastinum. Bones/Soft Tissues: No significant abnormality. IMPRESSION: Likely small pleural effusions, decreased. us Marcella Cruz MD IMG XR CHEST Final Result * (ABNORMAL) POCT Glucose (05/27/2025 11:58 AM EDT) Only the most recent of46 resultswithin the time period is included. [facility] Signature Glucose, POCT 152(H) 70 - 100 mg/dL [facility] 05/27/2025 11:5 8 AM EDT 05/27/2025 12:00 PM EDT us Freddie Hoyos MD POINT OF CARE TEST ORDERABL ES Final Result [facility] [address] [place] [address] * (ABNORMAL) Comprehensive metabolic panel (05/27/2025 5:35 AM EDT) Only the most recent of4 resultswithin the time period is included. SODIUM 129(L) 133 - 146 mmol/L [facility] POTASSIUM 4.9 3.3 - 5.1 mmol/L [facility] CHLORIDE 94(L) 96 - 108 mmol/L [facility] CO2 23 21 - 35 mmol/L [facility] BUN 64(H) 6 - 19 mg/dL [facility] CREATININE 3.80(H) 0.5 - 1.5 mg/dL [facility] GLUCOSE 137(H) 70 - 99 mg/dL [facility] ALBUMIN 3.5(L) 3.9 - 4.8 g/dL [facility] TOTAL PROTEIN 7.3 6.5 - 8.0 g/dL [facility] CALCIUM 9.2 8.4 - 10.3 mg/dL [facility] ALKALINE PHOSPHATASE 74 39 - 117 U/L [facility] TOTAL BILIRUBIN 0.3 0.0 - 1.2 mg/dL [facility] AST 22 0 - 37 U/L [facility] ALT 23 0 - 40 U/L [facility] GLOBULIN 3.8 1 - 4.8 g/dL [facility] EGFR 12(L) >59 mL/min/1.7 3m2 [facility] Comment:Estimated glomerular filtration rate calculated using the CKD-EPI refit equation. ANION GAP 17 10 - 20 mmol/L [facility] Blood 05/27/2025 5:35 AM EDT 05/27/2025 5:49 AM EDT us Izabela Jean CRIMINAL JUSTICE SOCIAL WORKER LAB BLOOD BKR ORDERABLES Final Result [facility] [address] [place] [address] * XR CHEST PA AND LATERAL 2 [...] clinician's provided indication for this examination in [facility]: Hypoxia; Dyspnea (Shortness of Breath) COMPARISON: XR CHEST 1 VIEW 2024- and multiple other priors FINDINGS: Devices/Tubes/Lines: Dual-lead [...] clinician's provided indication for this examination in [facility]:Hypoxia; Dyspnea (Shortness of Breath) COMPARISON: XR CHEST 1 VIEW 2024- and multiple other priors FINDINGS: Devices/Tubes/Lines: Dual-lead [...] atelectasis).There could still be mild vascular congestion. Freddie Hoyos MD IMG XR CHEST Final Resul t * Cortisol AM (05/25/2025 6:05 AM EDT) CORTISOL AM 17.1 6.02 - 18.4 ug/dL [facility] Blood 05/25/2025 6:05 AM EDT 05/25/2025 6:53 AM EDT us Freddie Hoyos MD LAB BLOOD BKR ORDERABLES Fi nal Result Performing Organization Address [facility]/ZIP Co de Phone Number [address] [address] * Osmolality, Random Urine (05/24/2025 12:37 PM EDT) Only the most recent of2 resultswithin the time period is included. URINE OSMOLALITY 317 mOsm/kg water [facility] Urine (Urine) 05/24/2025 12: 37 PM EDT 05/24/2025 1:02 PM EDT us Freddie Hoyos MD LAB URINE ORDERABLES Final Result Performing Organization Address [facility] de Phone Number [address] [address] * NC Myocardial Perfusion Pharmacologic Stress Multiple (05/22/2025 12:36 PM EDT) Max Predicted Heart Rate 146 bpm [facility] Anatomical Region Laterality Modality Heart, Vascular [...] separately. Please refer to that report in [facility]. COMPARISON: No prior cardiac SPECT is available [...] reportedseparately. Please refer to that report in [facility]. COMPARISON: No prior cardiac SPECT is available [...] reportoriginally created by Steven Gorman. us Travis Schulz DO CV NM CARDIAC Final R esult * NC Stress Result for Nuclear Stress Test (05/22/2025 11:29 AM EDT) Max Predicted Heart Rate 146 bpm [facility] Max BP Systolic 128 mmHg [facility] Max BP Diastolic 64 mmHg [facility] Max HR 69 BPM [facility] Resting HR 60 BPM [facility] Resting BP Systolic 128 mmHg [facility] Resting BP Diastolic 64 mmHg [facility] Peak METS 1.0 METS [facility] Peak HR 61 BPM [facility] Anatomical Region Laterality Modality Heart Other [...] by injection of Tc99m Sestamibi by Estefani histotechnologist. 1. EKG - Baseline EKG showed A [...] their maximum predicted heart rate. us Travis Arayaoleludwig DO CV NM CARDIAC Final R esult * XR CHEST 1 VIEW (05/22/2025 8:33 AM EDT) Anatomical Region Laterality Modality Chest Computed Radiogr aphy 05/22/2025 8:37 AM EDT Impressions 05/22/2025 8:51 AM EDT Interval improvement in bilateral airspace opacities with continued interstitial prominence and small bilateral pleural effusions, likely representing improving pulmonary edema. Narrative 05/22/2025 8:51 AM EDT XR CHEST 1 VIEW Referring clinician's provided indication for this examination in [facility]: Abnormal xray - pleural effusion COMPARISON: XR [...] clinician's provided indication for this examination in [facility]:Abnormal xray - pleural effusion COMPARISON: XR CHEST [...] included. WBC 3.72(L) 4.00 - 11.00 K/uL [facility] RBC 4.03 4.00 - 5.20 M/uL [facility] HGB 10.6(L) 12.0 - 16.0 g/dL [facility] HCT 32.9(L) 36.0 - 46.0 % [facility] PLT 260 150 - 450 K/uL [facility] MCV 81.6 80.0 - 100.0 fL [facility] MCH 26.3(L) 27.0 - 31.0 pg [facility] MCHC 32.2 32.0 - 36.0 g/dL [facility] RDW 13.6 11.5 - 14.5 % [facility] MPV 10.4 8.4 - 12.0 fL [facility] NRBC 0.00 0.00 /100 WBCs [facility] ABSOLUTE NRBC 0.00 0.00 K/uL [facility] DIFF METHOD Auto [facility] NEUTS 59.2 48.0 - 76.0 % [facility] LYMPHS 20.2 18.0 - 41.0 % [facility] MONOS 18.5(H) 4.0 - 11.0 % [facility] EOS 1.3 0.0 - 5.0 % [facility] BASOS 0.5 0.0 - 1.5 % [facility] Granulocytes, immature (%) 0.3 0.0 - 0.9 % [facility] ABSOLUTE NEUTS 2.20 1.92 - 7.60 K/uL [facility] ABSOLUTE LYMPHS 0.75 0.72 - 4.10 K/uL [facility] ABSOLUTE MONOS 0.69 0.16 - 1.10 K/uL [facility] ABSOLUTE EOS 0.05 0.00 - 0.50 K/uL [facility] ABSOLUTE BASOS 0.02 0.00 - 0.15 K/uL [facility] Granulocytes, immature 0.01 0.00 - 0.09 K/uL [facility] Blood 05/21/2025 5:58 AM EDT 05/21/2025 6:13 AM EDT us Yoana Chiang MD LAB BLOOD BKR ORDERABLES Fi nal Result [address] [address] * US Kidneys (05/18/2025 10:06 AM EDT) [...] clinician's provided indication for this examination in Epic:Renal failure, acute TECHNIQUE: Kidney Ultrasound. COMPARISON: Prior [...] 3. Simple cyst in the right kidney. us Yoana Chiang MD IMG US RENAL Final Resul t * COVID Pandemic Respiratory Viral Order (PRO) (05/17/2025 3:23 PM EDT) Only the most recent of2 resultswithin the time period is included. Test Ordered Rapid COVID, Flu, RSV has been ordered [facility] SPECIMEN SOURCE/DESCRIPTION NASAL [facility] SARS-CoV 2 (COVID-19) PCR Negative Negative [facility] Comment: SARS-CoV-2 not detected Negative results do not preclude SARS-CoV-2 infection and should not be used as the sole basis for patient management decisions. Negative results must be combined with clinical observations, patient history, and epidemiological information. This test has been authorized by the FDA under an Emergency Use Authorization (EUA) for use by authorized laboratories. Influenza A PCR Negative Negative [facility] Influenza B PCR Negative Negative [facility] RSV PCR Negative Negative [facility] Other (Nasopharyngeal swab) 05/17/2025 3:23 PM EDT 05/17/2025 4:22 PM EDT us Yoana Chiang MD LAB GENERAL ORDERABLES Alejandra l Result [address] [address] * TTE COMPREHENSIVE (05/17/2025 9:21 AM EDT) [...] interatrial septum appears normal. us Pallavi Ceron NP CV ECHO ORDERABLES Alejandra hayes Result * XR Chest Portable (05/16/2025 4:22 PM EDT) Anatomical Region Laterality Modality Chest Computed Radiogr aphy 05/16/2025 4:47 PM EDT Impressions 05/16/2025 4:49 PM EDT Cardiomegaly, small bilateral pleural effusions and probable pulmonary alveolar edema. Narrative 05/16/2025 4:49 PM EDT XR CHEST PORTABLE Referring clinician's provided indication for this examination in [facility]: Dyspnea on exertion COMPARISON: XR CHEST PORTABLE FINDINGS: Devices/Tubes/Lines: Pacemaker leads project over the right atrium and right ventricle. Lungs: Basilar predominant interstitial opacities with silhouetting of the pulmonary parenchyma. Pleura: Small bilateral pleural effusions. No pneumothorax. Heart/Mediastinum: Cardiomegaly. Bones/Soft Tissues: No acute skeletal abnormality. Procedure Note Jayden Choi MD - 05/16/2025 XR CHEST PORTABLE Referring clinician's provided indication for this examination in [facility]:Dyspnea on exertion COMPARISON: XR CHEST PORTABLE FINDINGS: Devices/Tubes/Lines: Pacemaker leads project over the right atrium andright ventricle. Lungs: Basilar predominant interstitial opacities with silhouetting of thepulmonary parenchyma. Pleura: Small bilateral pleural effusions. No pneumothorax. Heart/Mediastinum: Cardiomegaly. Bones/Soft Tissues: No acute skeletal abnormality. IMPRESSION: Cardiomegaly, small bilateral pleural effusions and probable pulmonaryalveolar edema. us Rafael Fay MD IMG XR CHEST Final Re sult * Hepatitis C antibody, qualitative (09/23/2024 4:12 AM EST) HCV NON-REACTIV E NON-REACTI VE [facility] Blood 09/23/2024 4:12 AM EST 09/23/2024 5:15 AM EST us Pallavi Ceron CRIMINAL JUSTICE SOCIAL WORKER LAB BLOOD BKR ORDERABLE S Final Result [address] [address] * (ABNORMAL) Lipid panel (04/03/2024 2:25 PM EDT) HDL 56 mg/dL [facility] Comment: Interpretation <40 mg/dL: Low HDL cholesterol (major risk factor for CHD) Greater than or equal to 60 mg/dL: High HDL cholesterol ( negative risk factor for CHD) HDL - cholesterol is affected by a number of factors, e.g. smoking, excerise, hormones, sex and age. CHOLESTEROL 248(H) 0 - 240 mg/dL [facility] TRIGLYCERIDES 214(H) 30 - 160 mg/dL [facility] LDL 149(H) 50 - 129 mg/dL [facility] Comment: LDL levels in terms of risk for coronary heart disease: <100 mg/dL: Optimal 100-129 mg/dL: Near or above optimal 130-159 mg/dL: Borderline high 160-189 mg/dL: High >190 mg/dL: Very High CARDIAC RISK RATIO 4.4 3.3 - 4.4 C [facility] Blood 04/03/2024 2:25 PM EDT 04/03/2024 2:31 PM EDT us Afua Leblanc EMBLEM CUTTER LAB BLOOD BKR ORDERABLES Fin al Result [facility] [address] [place] [address] from Last 3 Months or Most Recently [...] [place] [id number] MEDICARE PART A & [facility] [place] [id number] MEDICARE PART A & B Advance Directives For more information, please contact: [phone] (9AM - 5PM [facility], Monday-Monday) Documents on File Type Date Recorded Patient Head Wood Grinder Expl anation Healthcare Proxy 06/27/2025 6:46 PM Healthcare Proxy 11/06/2017 1:07 PM [facility] 05/22/2020 [facility] 03/23/20 * Full Code (Latest Code Status on [...] Agent (Proxy form on file) Care Teams Breeding Manager Relationship Specialty Start Date End Date Afua Leblanc CNP [address] [place] [address], [address] [place] [address] [email or web address] PCP - General Nurse Practitioner 05/24/23 Additional Source Comments The information contained in this document represents components of the legal health record. It is not the complete legal health record.[facility]
--- OUTSIDE RECORDS SUMMARY | 2025-08-05 19:48 | XMS_ITS | Encounter Summary ---
Author Organization [facility] Address [address] [place] [address] Phone Care Team Providers Care Tie Tape Machine Operator Name Role Phone Elfego Una Aiken RAILROAD CAR CLEANING SUPERVISOR Primary Care Provider [phone] Afua Leblanc RAILROAD CAR CLEANING SUPERVISOR Primary Care Provider Cayden Al MD Unavailable Marina Curry Unavailable karlo Encounter Details Date Type Department Care Team (Late st Contact Info) Description 11/18/2021 Procedure Pass , Ct Scan - [address] [address] Social History Tobacco Use Types Packs/Day Years [...] 3:34 PM EDT Delilah Zhu RN * [facility] Suicide Severity Rating Scale (Screener/Recent Self-Report) Question Answer Date of Assessment Author 1. Wish to be (Past 1 Month) No 11/18/2021 3:34 PM EDT Evelin Hurley RN 2. Non-Specific Active Suicidal Thoughts (Past 1 Month) No 11/18/2021 3:34 PM EDT Evelin Hurley RN 6. Suicidal Behavior (Lifetime) No 11/18/2021 3:34 PM EDT Evelin Hurley RN documented as of this encounter Plan of Treatment Upcoming Encounters Date Type Department Care Team ([facility] st Contact Info) Description 09/29/2025 11:00 AM EST Office Visit [facility] [address] [place] [address] Ashely LeblancghSHERLY ruiz [address] [facility], [address] [place] [address] [email or web address] Scheduled Procedures Name Priority Associated Diagnoses Date/Ti [...] documented as of this encounter Care Teams Tie Tape Machine Operator Relationship Specialty Start Date End Date Low MoorUna savage SHERLY Aiken [address], 2nd [place] [address] [email or web address] PCP - General 06/08/17 05/23/23 Afua Leblanc CNP [address] [facility] [address] [place] [address] [email or web address] PCP - General Nurse Practitioner 05/24/23 Cayden Al MD [address] [facility] [address] [place] [address] [email or web address] Insurance Assigned Provider 11/25/23 08/26/24 Marina Curry [address] [place] [id number] [email or web address] PHCM Community Deputy Director Of Public Works 12/30/24 12/30/24 documented as of this encounter Additional Source Comments The information contained in this document represents components of the legal health record. It is not the complete legal health record.[facility]
--- OUTSIDE RECORDS SUMMARY | 2025-08-05 19:48 | XMS_ITS | Encounter Summary ---
Author Organization [facility] Address [address] [place] [address] Phone Care Team Providers Care Benefits Coordinator Name Role Phone Afua Leblanc SHERLY Primary Care Provider Reason for Visit * Reason Onset Date Comments Labs 07/23/2025 Encounter Details Date Type Department Care Team (Late st Contact Info) Description 07/23/2025 Telephone [facility] [address] [place], [place] [phone] Shahab Shelby, JULY [phone] [place], [place] [phone] Labs Social History Tobacco Use Types Packs/Day Years [...] Job End Date Retired, previously worked at [employer] Not on file Not on file Not on file documented as of this encounter Progress Notes * Shahab Shelby RN - 07/23/2025 11:40 AM EST [facility] vna called. Reports that pts son stated that pcp had ordered some labs for nurse to collect while vna was out there. States that she is going to see pt soon. But could not find any order for lab,advised that pt has not seen pcp since December, no indication of labs, states that they will check to see if Urology had ordered labs. Fyi to pcp documented in this encounter Plan of Treatment Upcoming Encounters Date Type Department Care Team (Late st Contact Info) Description 09/29/2025 11:00 AM EST Office Visit [facility] Primary Care [facility] [address] [place] [address] Afua Leblanc CNP [address] [facility] [address] [place] [address] [email or web address] Scheduled Procedures Name Priority Associated Diagnoses Date/Ti [...] documented as of this encounter Care Teams Benefits Coordinator Relationship Specialty Start Date End Date Afua Leblanc CNP [address] [place] [address], [address] [place] [address] [email or web address] PCP - General Nurse Practitioner 05/24/23 documented as of this encounter Additional Source Comments The information contained in this document represents components of the legal health record. It is not the complete legal health record.[facility]
--- OUTSIDE RECORDS SUMMARY | 2025-08-05 19:48 | XMS_ITS | Encounter Summary ---
Author Organization [facility] Address [address] [facility] [address] [place] [address] Phone Care Team Providers Care Career Orientation Teacher Name Role Phone Una Telles HEAD REFRIGERATION ENGINEER Primary Care Provider Jazmyn Anderson RN Unavailable [phone] Afua Leblanc HEAD REFRIGERATION ENGINEER Primary Care Provider Cayden Al MD Unavailable Marina Curry Unavailable [email or web address] Reason for Referral * MRI/CAT Scan - Closed Specialty Diagnoses / Procedures Referred By Contac t Referred To Contact Procedures CT Chest Outside (No Interpretation) System, Provider Not In, [facility] [address] [address] Referral ID Status Reason Start Date Expiration Date Visits Re quested Visits Authorized [id number] Closed 01/08/2019 01/08/2020 1 1 Encounter Details Date Type Department Care Team (Late st Contact Info) Description 01/08/2019 Ancillary Orders [facility],Outside Imaging [address] [place] [address] System, Provider Not In, [facility] [employer] [address] Social History Tobacco Use Types Packs/Day Years [...] Description 09/29/2025 11:00 AM EST Office Visit [facility] [address] [place] [address] Afua Leblanc CNP [address] [facility], [address] [place] [address] [email or web address] Scheduled Procedures Name Priority Associated Diagnoses Date/Ti [...] 14 days 05/25/2020 05/25/2020 06/04/2020 1:24 AM EDT MRSA 04/03/2024 04/03/2024 CoV-Risk Comment:Per note documentation 05/16/2025 05/17/2025 12:46 PM EDT Assessment Noted Time PHQ-2 Depression Total Score: 0 06/25/20 18 2:39 PM EST documented as of this encounter Care Teams Career Orientation Teacher Relationship Specialty Start Date End Date Una Telles CNP [address] [facility], 2nd [place] [address] PCP - General 06/08/17 05/23/23 Afua Leblanc CNP [address] [facility] 7 [place] [address] PCP - General Nurse Practitioner 05/24/23 Jazmyn Anderson, JULY [address] [place] [address] PHCM Stove Bottom Worker 05/30/18 03/07/19 Cayden Al MD [address] [facility] 7 [place] [address] Insurance Assigned Provider 11/25/23 08/26/24 Marina Curry [address] [place] [id number] [email or web address] PHCM Community Real Estate Broker Associate 12/30/24 12/30/24 documented as of this encounter Additional Source Comments The information contained in this document represents components of the legal health record. It is not the complete legal health record.[facility]
--- OUTSIDE RECORDS SUMMARY | 2025-08-05 19:48 | XMS_ITS | Encounter Summary ---
Author Organization [facility] Address [address] [place] [address] Phone Care Team Providers Care Video Game Creator Name Role Phone Afua Leblanc SHERLY Primary Care Provider [phone] Marina Curry Unavailable karlo Encounter Details Date Type Department Care Team (Late st Contact Info) Description 09/24/2024 Procedure Pass [employer] [facility] [address] [place], [place] [phone] Social History Tobacco Use Types Packs/Day Years [...] Job End Date Retired, previously worked at [employer] Not on file Not on file Not on file documented as of this encounter Plan of Treatment Upcoming Encounters Date Type Department Care Team (Late st Contact Info) Description 09/29/2025 11:00 AM EST Office Visit [facility] [address] [place] [address] Afua Leblanc CNP [address] [facility], [address] [place] [address] [email or web address] Scheduled Procedures [...] documented as of this encounter Care Teams Video Game Creator Relationship Specialty Start Date End Date Afua Leblanc CNP [address] [place] [address], [address] [place], [place] [phone] [email or web address] PCP - General Nurse Practitioner 05/24/23 Marina Curry [address] [place] [address] [email or web address] PHCM Community Yard Hostler 12/30/24 12/30/24 documented as of this encounter Additional Source Comments The information contained in this document represents components of the legal health record. It is not the complete legal health record.[facility]
--- OUTSIDE RECORDS SUMMARY | 2025-08-05 19:48 | XMS_ITS | Clinical Summary ---
Author Organization [facility] Address [address] [place] [address] Care Team Providers Care Rn Interventional Name Role Phone ManiUna SAURABH Primary Care Provider [phone] Allergies Active Allergy Reactions Criticality Noted Date [...] 50+ (1 of 1 - PCV) 2000 RSV Vaccine 50 years and older and Patients (1 - Risk 50-74 years 1-dose series) 2000 Zoster (Shingles) Vaccine (1 of 2) 2000 DXA Bone Density (Females,Ages 65 and older) 12/03/2015 Influenza Vaccine 03/21/2025 06/08/2020, , 07/18/2017, Additional history exists COVID-19 Vaccine (2024- season) 2025 Hemoglobin A1C Discontinued 06/11/2021, 09/21, 06/08/2020, Additional history exists Hepatitis B Vaccines Aged Out No long er eligible based on patient's age to complete this topic Insurance MEDICARE PART A & B [facility] Care Teams Rn Interventional Relationship Specialty Start Date End Date Una Singleton NP [address] [facility] [address] [place] [address] PCP - General Adult Health - PA/APNP/ORACLE DATABASE ARCHITECT/DEPARTMENT HEAD COLLEGE OR UNIVERSITY 11/18/21
--- OUTSIDE RECORDS SUMMARY | 2025-08-05 19:48 | XMS_ITS | Encounter Summary ---
Author Organization [facility] Address [address] [facility] [address] [place] [address] Phone Care Team Providers Care Machine Set Up Operator Name Role Phone Elfego, Una Nelli [facility] Primary Care Provider [phone] Ashely Leblancghan [facility] Primary Care Provider Cayden Al MD Unavailable Marina Curry Unavailable karlo Encounter Details Date Type Department Care Team (Late st Contact Info) Description 12/29/2020 Transcribe Orders [facility] [address] [place], [place] [phone] Ean Santamaria MD 0 [place], [place] [phone] Routine general medical examination at a health [...] Description 09/29/2025 11:00 AM EST Office Visit [facility] [address] [place] [address] Afua Leblanc, SHERLY [address] [facility], [address] [place] [address] [email or web address] Scheduled Procedures Name Priority Associated Diagnoses Date/Ti [...] Syphilis antibody screen (12/30/2020 10:54 AM EDT) Pathologist [facility] RPR NON-REACTIV E NON-REACTI VE [facility] Blood 12/30/2020 10:5 4 AM EDT 12/30/2020 10:59 AM EDT Ean Santamaria MD LAB BLOOD BKR ORD ERABLES Final Result [facility] [address] [place] [address] * Quantiferon-TB Gold (12/30/2020 10:54 AM EDT) Pathologist [facility] QuantiFERON-TB Gold Negative Negative [facility] Comment: (NOTE) No interferon-gamma response to M. tuberculosis antigens was detected. Infection with M. tuberculosis is unlikely. A single negative result does not exclude infection with M. tuberculosis. In patients at high risk for M.tuberculosis infection, a second test should be considered in accordance with the 2017 ATS/IDSA/CDC Clinical Practice Guidelines for Diagnosis of Tuberculosis in Adults and Children [Lewinsohn DM et. al. Clin. Infect. Dis. 2017;64(2):111-115]. The reference range for the 'TB1 Ag minus Nil Result' and 'TB2 Ag minus Nil Result' is an Interferon-gamma level <0.35 IU/mL. TB1 Ag minus Nil 0.10 IU/mL [facility] TB2 Ag minus Nil 0.13 IU/mL [facility] Mitogen minus Nil 7.62 IU/mL [facility] Nil Result 0.03 IU/mL [facility] Blood 12/30/2020 10:5 4 AM EDT 12/30/2020 10:59 AM EDT us Ean Santamaria MD LAB BLOOD ORDERAB LES Final Result [facility] [address] [place] [address] documented in this encounter Visit Diagnoses Diagnosis [...] documented as of this encounter Care Teams Machine Set Up Operator Relationship Specialty Start Date End Date Una Telles CNP [address] [place] [address], [address] [place] [address] PCP - General 06/08/17 05/23/23 Afua Leblanc CNP [address] [place], [place] [address], [place] [address] [email or web address] PCP - General Nurse Practitioner 05/24/23 Cayden Al MD [address] [place] [address] 7 [place] [address] [email or web address] Insurance Assigned Provider 11/25/23 08/26/24 Marina Curry [address] [place] [address] [email or web address] PHCM Community Director Of Intelligence 12/30/24 12/30/24 documented as of this encounter Additional Source Comments The information contained in this document represents components of the legal health record. It is not the complete legal health record.[facility]
--- OUTSIDE RECORDS SUMMARY | 2025-08-05 19:48 | XMS_ITS | Encounter Summary ---
Author Organization [facility] Address [address] [facility] [address] [place] [address] Phone Care Team Providers Care Customer Care Consultant Name Role Phone Afua Leblanc SHERLY Primary Care Provider Encounter Details Date Type Department Care Team (Late st Contact Info) Description 06/23/2025 Procedure Pass [facility], Ct Scan - [facility] [address] [place] [address] Social History Tobacco Use Types Packs/Day Years [...] Job End Date Retired, previously worked at [employer] Not on file Not on file Not on file documented as of this encounter Functional Status * Calculated C-SSRS Risk Score (Lifetime/Recent) Answer Date of Assessment Author No Risk Indicated 06/23/2025 4:57 PM Pedrito Perrin RN * [place] Suicide Severity Rating Scale (Screener/Recent Self-Report) Question Answer Date of Assessment Author 1. Wish to be (Past 1 Month) No 06/23/2025 4:57 PM Pedrito Perrin RN 2. Non-Specific Active Suici deana Thoughts (Past 1 Month) No 06/23/2025 4:57 PM Alvaro Perrin RN 6. Suicidal Behavior (Lifetime) No 4:57 PM Pedrito Perrin RN documented as of this encounter Plan of Treatment Upcoming Encounters Date Type Department Care Team (Late st Contact Info) Description 09/29/2025 11:00 AM EST Office Visit [facility] Primary Care [facility] [address] [place] [address] Afua Leblanc CNP [address] [address] [email or web address] Scheduled Procedures Name Priority Associated Diagnoses Date/Ti [...] documented as of this encounter Care Teams Customer Care Consultant Relationship Specialty Start Date End Date Afua Leblanc CNP [address] [address] [email or web address] PCP - General Nurse Practitioner 05/24/23 documented as of this encounter Additional Source Comments The information contained in this document represents components of the legal health record. It is not the complete legal health record.[facility]
--- OUTSIDE RECORDS SUMMARY | 2025-08-05 19:48 | XMS_ITS | Encounter Summary ---
Author Organization [facility] Address [address] [facility] [address] [place] [address] Phone Care Team Providers Care Power Electronics Engineer Name Role Phone Afua Leblanc SHERLY Primary Care Provider Encounter Details Date Type Department Care Team (Late st Contact Info) Description 06/26/2025 Home Health Resumption of Care Planning [facility] [address] [place] [address] Rhonda Mason, RN [address] [place] [address] [email or web address] Social History Tobacco Use Types Packs/Day Years [...] Job End Date Retired, previously worked at [employer] Not on file Not on file Not on file documented as of this encounter Plan of Treatment Upcoming Encounters Date Type Department Care Team (Late st Contact Info) Description 09/29/2025 11:00 AM EST Office Visit [facility] [address] [place] [address] Afua Leblanc CNP [address] [address] [email or web address] Scheduled [...] as of this encounter Care Teams Power Electronics Engineer Relationship Specialty Start Date End Date Afua LeblancSHERLY [address] [address] [email or web address] PCP - General Nurse Practitioner 05/24/23 documented as of this encounter Additional Source Comments The information contained in this document represents components of the legal health record. It is not the complete legal health record.[facility]
--- OUTSIDE RECORDS SUMMARY | 2025-08-05 19:48 | XMS_ITS | Encounter Summary ---
Author Organization [facility] Address [address] [place] [address] Phone Care Team Providers Care Cement Fittings Maker Name Role Phone Elfego Una Aiken AGRICULTURAL RESEARCH TECHNICIAN Primary Care Provider [phone] Afua Leblanc AGRICULTURAL RESEARCH TECHNICIAN Primary Care Provider [phone] Cayden Al MD Unavailable Marina Curry Unavailable karlo Encounter Details Date Type Department Care Team (Late st Contact Info) Description 06/29/2021 Telephone [facility] [address] [place] [address] Destinee Shirley NP [address] [place] [id number] [email or web address] Social History Tobacco Use Types Packs/Day Years [...] Description 09/29/2025 11:00 AM EST Office Visit [facility] Care [facility] [address] [place] [address] Afua Leblanc CNP 234 [facility] 7 [place] [address] Scheduled Procedures Name Priority Associated Diagnoses Date/Ti [...] documented as of this encounter Care Teams Cement Fittings Maker Relationship Specialty Start Date End Date Una Telles CNP [address] [facility], 2nd [place] [address] PCP - General 06/08/17 05/23/23 Afua Leblanc CNP [address] [facility] 7 [place] [address] PCP - General Nurse Practitioner 05/24/23 Cayden Al MD [address] [place] [address], [address] [place] [address] [email or web address] Insurance Assigned Provider 11/25/23 08/26/24 Marina Curry [address] [place] [address] [email or web address] PHCM Community Target Trimmer 12/30/24 12/30/24 documented as of this encounter Additional Source Comments The information contained in this document represents components of the legal health record. It is not the complete legal health record.[facility]
--- OUTSIDE RECORDS SUMMARY | 2025-08-05 19:48 | XMS_ITS | Encounter Summary ---
Author Organization [facility] Address [address] [facility] [address] [place] [address] Phone Care Team Providers Care Complex Human Resources Manager Name Role Phone Una Telles CLINICAL OPERATIONS MANAGER Primary Care Provider Jazmyn Anderson RN Unavailable [phone] Afua Leblanc CLINICAL OPERATIONS MANAGER Primary Care Provider Cayden Al MD Unavailable Marina Curry Unavailable karlo [email or web address] Encounter Details Date Type Department Care Team (Late st Contact Info) Description 12/26/2018 Procedure Pass [facility], [address] [address] Social History Tobacco Use Types Packs/Day Years [...] Description 09/29/2025 11:00 AM EST Office Visit [facility] [address] [place] [address] Afua Leblanc CNP 234 [facility] 7 [place] [address] [email or web address] Scheduled Procedures Name Priority Associated Diagnoses Date/Ti [...] documented as of this encounter Care Teams Complex Human Resources Manager Relationship Specialty Start Date End Date Una Telles CNP [address] [facility], 2nd [place] [address] PCP - General 06/08/17 05/23/23 Afua Leblanc CNP [address] [facility] 7 [place] [address] [email or web address] PCP - General Nurse Practitioner 05/24/23 Jazmyn Anderson, JULY [address] [place] [address] [email or web address] PHCM Board Saw Runner 05/30/18 03/07/19 Cayden Al MD [address] [place] [address], [facility] 7 [place], [place] [id number] [email or web address] Insurance Assigned Provider 11/25/23 08/26/24 Marina Curry [address] [place] [address] [email or web address] PHCM Community Marshmallow Machine Operator 12/30/24 12/30/24 documented as of this encounter Additional Source Comments The information contained in this document represents components of the legal health record. It is not the complete legal health record.[facility]
== END 2025-08-05 16:17 | disposition home or self-care (01) ==
LOC: HO.HVS 15:36
PROVIDERS: PCP Nurse Practitioner Family; Visit Provider Surgery Vascular Surgery
DX: I73.9 Peripheral vascular disease, unspecified (principal)
CPT/HCPCS: 99214

== ENCOUNTER → 2025-08-05 15:36 | Outpatient (BNVA) | payer MEDICARE, MEDICAID, SELFPAY | PROVIDERS: PCP Nurse Practitioner Family; Visit Provider Surgery Vascular Surgery | DX: Z47.81 Encounter for orthopedic aftercare following surgical amputation (principal); Z89.421 Acquired absence of other right toe(s); I73.9 Peripheral vascular disease, unspecified | CPT/HCPCS: 99212 ==

== ENCOUNTER 2025-08-20 14:12 | Outpatient (AMB) | payer MEDICARE, MEDICAID, SELFPAY ==
[2025-08-20 14:15] VITALS: BP 190/100; PULSE 74; O2SAT 93; BMI 24.5
--- NOTE | 2025-08-20 14:15 | HO.NEPHOV ---
Vital Signs 08/20/25 14:15 Height 5 ft 4 in Weight 143 lb BMI 24.5 BP 190/100 H Blood Pressure Location Rt brachial Position Sitting Pulse 74 Pulse Source Pulse Oximeter Pulse Oximetry (%) 93 Oxygen Delivery Method Room Air Intake Visit Reasons: 3 MO FU with Labs-Conf w/ son Trucker Hand Required: No Accompanied by: Son Allergies penicillin V Allergy (Unknown, Verified 08/20/25 14:40) RSH,ITCHY HPI Comments Details: 74-year-old female with peripheral arterial disease status post left BKA, essential hypertension, insulin-dependent diabetes mellitus was seen today for follow up of her CKD. She had normocytic anemia . She denies SOB, orthopnea or PND. She has H/O recurrent ANNIE on CKD3b. due to cardiorenal syndrome. She denies any chest pain, pedal edema or urinary symptoms. She does not take any nonsteroidal anti-inflammatories. She tries to maintain good hydration. 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/31/23) History of left below knee amputation History of femoral angiogram History of left below knee amputation Pacemaker Social History Household Members: Family and Children Housing: House Do you presently have visiting nurse or other home services: No Alcohol intake: current Alcohol intake frequency: does not drink Patient Tobacco Use Status: Never used Tobacco service: No Current occupational status: retired Review of Systems Const All systems reviewed & are unremarkable except as noted in HPI and below Physical Exam Vital Signs: Last Vital Signs Pulse 74 08/20/25 14:15 BP 190/100 H 08/20/25 14:15 Pulse Ox 93 08/20/25 14:15 Oxygen Delivery Method Room Air 08/20/25 14:15 BMI result Body Mass Index 24.5 Const General: comfortable and no acute distress Orientation/consciousness: patient oriented x3 HEENT Head: Yes normocephalic Mouth: Normal oral and palatal mucosa present Eyes EOM: EOMs intact bilaterally Neck Neck: Yes supple Resp Auscultation: clear to auscultation bilaterally Cardio Jugular venous distension: no JVD Rate: regular rate GI Palpation (GI): Soft to palpation Auscultation: normal bowel sounds General: Yes no CVA tenderness Back/Spine/Pelvis Back: no CVA tenderness Skin General skin exam: no rashes or lesions noted Neuro General: patient oriented x3 and moves all extremities Extrem General: Yes no pedal edema Results Reviewed Nephrology Results: Hgb, (12.0-16.0) 11.8 g/dl L 04/09/25 WBC, (4.8-10.8) 5.3 X10*3/uL 04/09/25 Plt Count, (160-400) 219 X10*3/uL 04/09/25 Sodium, (135-145) 136 mmol/L 04/09/25 Potassium, (3.3-5.1) 5.2 mmol/L H 04/09/25 Chloride, (96-108) 102 mmol/L 04/09/25 Carbon Dioxide, (22-29) 26 mmol/L 04/09/25 BUN, (9-16) 49 mg/dL H 04/09/25 Creatinine, (0.5-1.4) 2.59 mg/dL H 04/09/25 Calcium, (8.4-10.2) 9.0 mg/dL 04/09/25 Phosphorus, (2.7-4.5) 4.1 mg/dL 04/09/25 PTH Intact, (8.7-77.1) 236.7 pg/mL H 04/09/25 Renal US 10/03/24 Assessment & Plan Assessment & Plan (1) CKD (chronic kidney disease) stage 3, GFR 30-59 ml/min: Code(s): N18.30 - Chronic kidney disease, stage 3 unspecified Category: Medical Qualifiers: Chronic kidney disease stage 3 subtype: stage 3b (GFR 30-44) Qualified Code(s): N18.32 - Chronic kidney disease, stage 3b (2) Hyperkalemia: Code(s): E87.5 - Hyperkalemia Category: Medical (3) Anemia in chronic kidney disease (CKD): Code(s): N18.9 - Chronic kidney disease, unspecified; D63.1 - Anemia in chronic kidney disease Category: Medical Qualifiers: Chronic kidney disease stage: stage 4 (GFR 15-29) Qualified Code(s): N18.4 - Chronic kidney disease, stage 4 (severe); D63.1 - Anemia in chronic kidney disease Plan Her serum creatinine is close to baseline. She has H/O heart failure which has resolved. Her CKD is likely from vascular disease. Her urine output is good. She can continue her current medications for now . She will be a candidate for Procrit injections in the future. She will need activated Vitamin D soon. She should be on a low K diet and be compliant with K lowering medication as prescribed. I did not make any other medication changes today. She should avoid nonsteroidal anti-inflammatory medications and maintain good hydration. Follow-up blood work ordered , answered her and her son's questions. Follow-up given Orders: Orders Electrolytes 1 Month D63.1 - Anemia in chronic kidney disease, E87.5 - Hyperkalemia, N18.32 - Chronic kidney disease, stage 3b, N18.4 - Chronic kidney disease, stage 4 (severe) Blood Urea Nitrogen 1 Month D63.1 - Anemia in chronic kidney disease, E87.5 - Hyperkalemia, N18.32 - Chronic kidney disease, stage 3b, N18.4 - Chronic kidney disease, stage 4 (severe) Creatinine 1 Month D63.1 - Anemia in chronic kidney disease, E87.5 - Hyperkalemia, N18.32 - Chronic kidney disease, stage 3b, N18.4 - Chronic kidney disease, stage 4 (severe) Complete Blood Count Auto Diff 1 Month D63.1 - Anemia in chronic kidney disease, E87.5 - Hyperkalemia, N18.32 - Chronic kidney disease, stage 3b, N18.4 - Chronic kidney disease, stage 4 (severe) Medications: Refilled sodium polystyrene sulfonate 30 grams PO .Q week 453.6 grams 10RF Coding Level of Care Code Est Pt Level 4 (25527) Diagnoses Stage 3b chronic kidney disease N18.32 Chronic kidney disease stage 3 subtype: stage 3b (GFR 30-44) Hyperkalemia E87.5 Anemia in stage 4 chronic kidney disease N18.4; D63.1 Chronic kidney disease stage: stage 4 (GFR 15-29)
--- OUTSIDE RECORDS SUMMARY | 2025-08-20 15:24 | XMS_ITS | Encounter Summary ---
Author Organization [facility] Address [address] [facility] [place] [address] Phone Care Team Providers Care Assistant Front End Manager Name Role Phone Afua Leblanc SHERLY Primary Care Provider Encounter Details Date Type Department Care Team (Late st Contact Info) Description 05/16/2025 Procedure Pass [facility] [address] [place], [place] [id number] Social History Tobacco Use Types Packs/Day Years [...] Job End Date Retired, previously worked at [employer] Not on file Not on file Not on file documented as of this encounter Plan of Treatment Upcoming Encounters Date Type Department Care Team (Late st Contact Info) Description 09/29/2025 11:00 AM EST Office Visit [facility] [address] [place] [address] Afua Leblanc CNP [address], [address] [place] [address] [email or web address] Scheduled Procedures Name Priority Associated [...] documented as of this encounter Care Teams Assistant Front End Manager Relationship Specialty Start Date End Date Afua Leblanc CNP [address] [facility] 7 [place] [address] [email or web address] PCP - General Nurse Practitioner 05/24/23 documented as of this encounter Additional Source Comments The information contained in this document represents components of the legal health record. It is not the complete legal health record.[facility]
--- OUTSIDE RECORDS SUMMARY | 2025-08-20 15:24 | XMS_ITS ---
Care Plan Created on: August 20, 2025 Belkys Florian : 1950 Sex: Female Author Organization [facility] Address [address] [place] [id number] Phone Care Team Providers Care Blend Technician Name Role Phone CowardAshelyAfua CNP Primary Care Provider Active Problems Problem [...] the date of the encounter. This includes [id number] time during the visit as well as non tcti-lt-[id number] time spent on chart review, documentation, and [...] cardiology. -Eventually plan to follow-up with outpatient [place] tree fruit and nut farming supervisor on discharge. Assessment & Plan (06/25/2025 8:06 [...] cardiology. -Eventually plan to follow-up with outpatient [place] tree fruit and nut farming supervisor on discharge. Assessment & Plan (05/27/2025 8:42 AM EDT): - Labs pending this morning - Continue Lokelma 10 g for K5.4 or above. -Low K diet. -for now if no urgency for cardiac cath await until renal function stabilizes, if urgent cath required minimization IV contrast amount strategies and preemptively use of IVFs can be tried. -On discharge to follow-up with her outpatient [place] neph[facility] group. Assessment & Plan (05/26/2025 12:55 PM EDT): Noted to have stage IV CKD, baseline Cr 2.7 from diabetic nephropathy. At presentation creatinine is 3.9, up trended with diuresis to 4.8 no back down to prior levels. Her PCP notes indicates she follows both with nephrology and endocrinology at [facility] - renal u/s no hydronephrosis, no stones - Neprhology following - Lokelma for K > 5.4 - Will need outpatient follow up with [place] [facility] Assessment & Plan (05/26/2025 10:37 [...] -On discharge to follow-up with her outpatient [place] neph[facility] group. Assessment & Plan (05/25/2025 3:57 PM EDT): Noted to have stage IV CKD, at presentation creatinine is 3.9, higher than previous of 2.7 documented in September Her PCP notes indicates she follows both with nephrology and endocrinology at [facility] - renal u/s no hydronephrosis, no [...] follows both with nephrology and endocrinology at [facility] Will need very close monitoring of [...] follows both with nephrology and endocrinology at [facility] Will need very close monitoring of [...] follows both with nephrology and endocrinology at [facility] Will need very close monitoring of [...] follows both with nephrology and endocrinology at [facility] Will need very close monitoring of [...] follows both with nephrology and endocrinology at [facility] Will need very close monitoring of [...] follows both with nephrology and endocrinology at [facility] Will need very close monitoring of [...] follows both with nephrology and endocrinology at [facility] Will need very close monitoring of [...] follows both with nephrology and endocrinology at [facility] Will need very close monitoring of [...] follows both with nephrology and endocrinology at [facility] We will consult our tree fruit and nut farming supervisor while she is here, diurese as above [...] SOB, CP, or dizziness. Referral placed to [facility] cardiology. Assessment & Plan (09/24/2024 12:36 PM [...] - monitor SPO2 - continue diuresis -Consulting tree fruit and nut farming supervisor as above -Sodium restriction and education DM [...] for osteomyelitis of the right foot in [place] 08/2023. After surgery she was in a halfway until mid January, and has been at [...] this was arranged during her hospitalization at [place]) Assessment & Plan (04/04/2024 12:45 PM EDT): [...] wound care. I have advised they need [place] wound care involved again and they are [...] Overview (11/03/2022): She follows with vascular at [place]. She refused revascularization. Assessment & Plan (11/03/2022 1:16 PM EDT): We discussed risks leading to need for another amputation. She is adamant that she will not undergo revascularization, nor which she agreed to another amputation Her son and a Scottish spanish interpreter/translator were present during this conversation Primary insomnia [...] left left stump wound See by wound load tester & Plan (05/20/2025 6:58 PM EDT): The [...] left left stump wound See by wound load tester & Plan (05/19/2025 5:11 PM EDT): The [...] left left stump wound See by wound load tester & Plan (05/18/2025 4:47 PM EDT): The [...] Patient states she has not seen an blueprinter recently She has a diabetic foot wound on the right and we will consult wound nurse Assessment & Plan (12/28/2024 10:18 PM EDT): She reports she has mostly remained compliant with insulin. She is following with diabetes and nephrology at [facility]. Again, discussed we are not receiving records [...] ophthalmology and book appt w [facility] or [facility] endocrinology Assessment & Plan (09/30/2020 10:18 AM EST): S/p left BKA. Her blood sugar is uncontrolled. She is following w vascular doctor outside of [facility] Status post unilateral below knee amputation, le [...] Plan (10/21/2024 3:07 PM EST): Scheduled with [facility] 11/14. Assessment & Plan (09/24/2024 12:36 [...] as directed. She is due for Medicare [id number] with new PCP in 3 months. Assessment [...] insulins as prescribed and recommend she see volunteer services specialist Assessment & Plan (09/28/2022 1:36 PM [...] her know that I will be leaving [facility] so this is more reason [...] have offered her referral several times to blueprinter or [facility] [...] not believe she is capable of learning Taiwanese or learning to read at this point [...] wound & gangrene Dr Puentes [facility] Assessment & Plan (11/03/2022 1:12 PM EDT): [...] is following w vascular doctor outside of [facility] Assessment & Plan (05/29/2018 8:51 PM EDT): [...] not like side effects from multiple medications property assessment monitor Echo-showed decrease in ejection fraction 30 [...] not like side effects from multiple medications property assessment monitor Echo-showed decrease in ejection fraction 30 [...] not like side effects from multiple medications property assessment monitor Echo Follow BMP closely It looks [...] been discussed in the past with her tree fruit and nut farming supervisor, details unknown. Staging of the later stages [...] failure-doubled creatinine-GFR is 20. She sees Dr. Bill-tree fruit and nut farming supervisor in [place]. I called the phone number to talk with him but there was no answer-I left a voicemail. She was very adamant at the start of this visit that she did not want to go to the emergency room as she does not want to be admitted. I called her tree fruit and nut farming supervisor office as she notes that she would [...] I gave them [facility] phone number. I think it would be best for her to get on that plan & get a case management specialist. I talked to son & afterwards to [...] if K rises above 5.4 as per tree fruit and nut farming supervisor - continue tele monitoring - EKG - [...] my nurse to call over to the [place] wound care to get her established as [...] form was completed appropriately. I had the spanish interpreter/translator re-sign and their copy today. Hyperglycemia 08/01/2018 [...] Patient will take medications as prescribed 06/25/2018 [facility] will request PT-1 transportation for patient to [facility] 06/25/2018 Luisito will schedule [facility] appointment for patient 06/25/2018 Note:Luisito confirms she has the contact information for [facility]. Related Goals and Interventions Goal Associated Intervent ions Adhere to prescribed treatment plan [facility] will request PT-1 transportation for patient to [facility]; Luisito will schedule [facility] appointment for patient Manage and adhere to medicat ion treatment plan Patient will take medications as prescri bed
--- OUTSIDE RECORDS SUMMARY | 2025-08-20 15:24 | XMS_ITS | Clinical Summary ---
Author Organization [facility], Address [address] [place] [address] Phone Care Team Providers Care Slip Maker Name Role Phone Una Telles NP Primary [...] ophthalmology and book appt w [facility] or [facility] endocrinology DM w nephropathy, neuropathy [...] Recently Relevant to Health Maintenance Insurance [place] Medicare Care Teams Slip Maker Relationship Specialty Start Date End Date Una Telles NP PCP - General 06/25/19
--- OUTSIDE RECORDS SUMMARY | 2025-08-20 15:25 | XMS_ITS | Clinical Summary ---
Author Organization [facility] Address [address] [facility] [address] [place] [phone] Phone Care Team Providers Care Game And Fish Protector Name Role Phone Afua Leblanc FROZEN YOGURT MAKER Primary Care Provider Allergies Active Allergy Reactions Criticality Noted Date Comments Penicillins Rash,Unknown Medium 11/01/2017 Medications blood-glucose meter (FREESTYLE LITE METER) kitIndications: DM type 2, uncontrolled, with neuropathy Check blood sugar 3 times daily 90 each 11 05/29/20 18 Active aspirin 81 mg chewable tabletIndicatio ns:Peripheral arterial disease Take 1 tablet (81 mg total) by mouth daily. 90 tablet 3 06/17/20 21 Active pen needle, diabetic 31 gauge x 15/64 NdleIndications :Diabetic retinopathy associated with type 2 diabetes mellitus, macular edema presence unspecified, unspecified laterality, unspecified retinopathy severity USE 4 TIMES DAILY 100 each 02/01/20 22 Active lancets (FREESTYLE) 28 gauge MiscIndications :Poorly controlled type 2 diabetes mellitus with neuropathy USE TO CHECK GLUCOSE THREE TIMES DAILY 100 each 3 05/09/20 23 Active NOVOFINE AUTOCOVER 30 gauge x 1/3 Ndle USE 1 UNIT 4 TIMES DAILY 100 each 03/27/20 24 Active insulin pen needles, disposable, (BD MARILOU 2ND GEN PEN NEEDLE) 32 gauge x 5/32 Ndle Inject 1 each under the skin 4 (four) times a day. 400 each 3 09/18/19 25 Active NIFEdipine (ADALAT CC) 60 MG 24 hr tabletIndicatio ns:HTN (hypertension), Congestive heart failure, unspecified HF chronicity, unspecified heart failure type Take 1 tablet (60 mg total) by mouth nightly at bedtime. 90 tablet 1 10/26/19 25 Active hydrALAZINE (APRESOLINE) 100 MG tabletIndicatio ns:Congestive heart failure, unspecified HF chronicity, unspecified heart failure type Take 1 tablet (100 mg total) by mouth 3 (three) times a day. 270 tablet 1 10/26/19 25 Active carvedilol (COREG) 25 MG tablet Take 1 tablet (25 mg total) by mouth 2 (two) times a day with meals. 180 tablet 1 10/26/19 25 Active isosorbide mononitrate (IMDUR) 60 MG 24 hr tablet Take 1 tablet (60 mg total) by mouth daily. 90 tablet 2 11/16/19 25 Active empagliflozin (JARDIANCE) 10 mg tablet [The details of the medication are not available because there are pending changes by a home health clinician.] 90 tablet 2 11/16/19 25 Active Additional Information Patient taking differently:10 mg Oral Daily,If sugar is high, Reported on 07/31/2025 FREESTYLE LITE Strp stripsIndicatio ns:Poorly controlled type 2 diabetes mellitus with neuropathy 1 each by Percutaneous route 3 (three) times a day before meals. DX: E11.29 300 strip 3 12/18/19 25 Active clopidogrel (PLAVIX) 75 mg tablet TAKE 1 TABLET BY MOUTH IN THE MORNING 90 tablet 03/03/20 25 Active torsemide (DEMADEX) 20 MG tablet Take 2 tablets (40 mg total) by mouth daily. 60 tablet 05/28/20 25 Active insulin glargine (LANTUS) 100 unit/mL injection vial Inject 5 Units under the skin nightly at bedtime. 1.5 mL 2 05/29/20 25 2025 Active insulin aspart U-100 (NOVOLOG) 100 unit/mL (3 mL) injection pen Inject 0-5 Units under the skin daily as needed (high blood sugar). ss 06/20/20 25 Active pantoprazole (PROTONIX) 40 MG tablet Take 1 tablet (40 mg total) by mouth 2 (two) times a day. 60 tablet 06/26/20 25 Active sucralfate (CARAFATE) 1 gram tablet Take 1 tablet (1 g total) by mouth 2 (two) times a day before meals. 14 tablet 06/26/20 25 Active cefpodoxime (VANTIN) 200 MG tablet Take 1 tablet (200 mg total) by mouth daily. 2 tablet 06/27/20 25 Active NONA-MONIQUE RX 1-60-300 mg-mg-mcg TabIndications: CKD stage 4 secondary to hypertension Take 1 tablet by mouth once daily 30 tablet 11 08/12/20 25 Active vitamin B cmplex 9-ZH-A-biotin (NONA-MONIQUE RX) 1-60-300 mg-mg-mcg TabIndications: CKD stage 4 secondary to hypertension Take 1 tablet by mouth daily. 30 tablet 06/20/20 25 2024 Discontinued Active Problems Problem Noted Date Diagnosed Date [...] the date of the encounter. This includes omca-zu-eeuz time during the visit as well as non udrf-lm-vlzf time spent on chart review, documentation, and [...] cardiology. -Eventually plan to follow-up with outpatient [facility] correctional agency on discharge. Assessment & Plan (06/25/2025 8:06 [...] cardiology. -Eventually plan to follow-up with outpatient [facility] correctional agency on discharge. Assessment & Plan (05/27/2025 8:42 AM EDT): - Labs pending this morning - Continue Lokelma 10 g for K5.4 or above. -Low K diet. -for now if no urgency for cardiac cath await until renal function stabilizes, if urgent cath required minimization IV contrast amount strategies and preemptively use of IVFs can be tried. -On discharge to follow-up with her outpatient [facility] nephrology group. Assessment & Plan (05/26/2025 12:55 PM EDT): Noted to have stage IV CKD, baseline Cr 2.7 from diabetic nephropathy. At presentation creatinine is 3.9, up trended with diuresis to 4.8 no back down to prior levels. Her PCP notes indicates she follows both with nephrology and endocrinology at [facility] - renal u/s no hydronephrosis, no stones - Neprhology following - Lokelma for K > 5.4 - Will need outpatient follow up with [facility] Assessment & Plan (05/26/2025 10:37 [...] -On discharge to follow-up with her outpatient [facility] nephrology group. Assessment & Plan (05/25/2025 3:57 PM EDT): Noted to have stage IV CKD, at presentation creatinine is 3.9, higher than previous of 2.7 documented in September Her PCP notes indicates she follows both with nephrology and endocrinology at [facility] - renal u/s no hydronephrosis, no [...] follows both with nephrology and endocrinology at [facility] Will need very close monitoring of [...] follows both with nephrology and endocrinology at [facility] Will need very close monitoring of [...] follows both with nephrology and endocrinology at [facility] Will need very close monitoring of [...] follows both with nephrology and endocrinology at [facility] Will need very close monitoring of [...] follows both with nephrology and endocrinology at [facility] Will need very close monitoring of [...] follows both with nephrology and endocrinology at [facility] Will need very close monitoring of [...] follows both with nephrology and endocrinology at [facility] Will need very close monitoring of [...] follows both with nephrology and endocrinology at [facility] Will need very close monitoring of [...] follows both with nephrology and endocrinology at [facility] We will consult our director correctional agency while she is here, diurese as above [...] baseline back in March last 1.7-2.4 mg/dL. Eventually will benefit from SGLT2 [...] SOB, CP, or dizziness. Referral placed to [facility] cardiology. Assessment & Plan (09/24/2024 12:36 [...] - monitor SPO2 - continue diuresis -Consulting director correctional agency as above -Sodium restriction and education DM [...] for osteomyelitis of the right foot in [place] 08/2023. After surgery she was in a [...] this was arranged during her hospitalization at [facility]) Assessment & Plan (04/04/2024 12:45 PM EDT): [...] wound care. I have advised they need [facility] wound care involved again and they are [...] Overview (11/03/2022): She follows with vascular at [facility]. She refused revascularization. Assessment & Plan (11/03/2022 1:16 PM EDT): We discussed risks leading to need for another amputation. She is adamant that she will not undergo revascularization, nor which she agreed to another amputation Her son and a [place] squadron worker were present during this conversation Primary insomnia [...] left left stump wound See by wound animal care worker & Plan (05/20/2025 6:58 PM EDT): The [...] left left stump wound See by wound animal care worker & Plan (05/19/2025 5:11 PM EDT): The [...] left left stump wound See by wound animal care worker & Plan (05/18/2025 4:47 PM EDT): The [...] Patient states she has not seen an guide cruise recently She has a diabetic foot wound on the right and we will consult wound nurse Assessment & Plan (12/28/2024 10:18 PM EDT): She reports she has mostly remained compliant with insulin. She is following with diabetes and nephrology at [facility]. Again, discussed we are not receiving records from them. Her son will obtain these records and have them sent to us. Continues to follow with [facility] for wound care. Assessment & Plan (09/24/2024 10:45 AM EST): Glucose appears to be labile, some hyperglycemia noted in the past, overnight however appears very well-controlled, she had episode of hypoglycemia this morning and /4. Suspect her diet is not as strict [...] ophthalmology and book appt w [facility] or [facility] endocrinology Assessment & Plan (09/30/2020 10:18 AM EST): S/p left BKA. Her blood sugar is uncontrolled. She is following w vascular doctor outside of [facility] Status post unilateral below knee amputation, le [...] Plan (10/21/2024 3:07 PM EST): Scheduled with [facility] 11/14. Assessment & Plan (09/24/2024 12:36 PM [...] as directed. She is due for Medicare [id number] with new PCP in 3 months. Assessment [...] insulins as prescribed and recommend she see web operations specialist Assessment & Plan (09/28/2022 1:36 PM [...] her know that I will be leaving [facility] so this is more reason for [...] have offered her referral several times to guide cruise or [facility] [...] not believe she is capable of learning Spanish or learning to read at this point [...] non healing wound & gangrene Dr Puentes [facility] Assessment & Plan (11/03/2022 1:12 PM [...] is following w vascular doctor outside of [facility] Assessment & Plan (05/29/2018 8:51 PM EDT): [...] not like side effects from multiple medications mimeograph operator Echo-showed decrease in ejection fraction 30 to [...] not like side effects from multiple medications mimeograph operator Echo-showed decrease in ejection fraction 30 to [...] not like side effects from multiple medications mimeograph operator Echo Follow BMP closely It looks like the last time she picked up her meds was in October and November, is supposed to be on Coreg, Ligia, Carlitor, will attempt to slowly restart these also [...] been discussed in the past with her director correctional agency, details unknown. Staging of the later stages [...] failure-doubled creatinine-GFR is 20. She sees Dr. Bill-director correctional agency in [place]. I called the phone number to talk with him but there was no answer-I left a voicemail. She was very adamant at the start of this visit that she did not want to go to the emergency room as she does not want to be admitted. I called her director correctional agency office as she notes that she would [...] Diff to her daughter. I gave them [facility] phone number. I think it would be best for her to get on that plan & get a casework manager. I talked to son & afterwards [...] if K rises above 5.4 as per director correctional agency - continue tele monitoring - EKG - [...] my nurse to call over to the [facility] wound care to get her established as [...] is likely secondary to working at a [employer] all day. I informed her to use [...] form was completed appropriately. I had the squadron worker re-sign and their copy today. Hyperglycemia 08/01/2018 [...] Date Type Department Care Team Description 025 Refill [facility] [address] [address] Rodríguez Alcaraz MD Medication Refill 11:30 AM EST Office Visit [address] [address] Cesar Nieves, Anemia, unspecified type (Primary Dx); Acute upper gastrointestinal bleeding 12:30 PM EST Home Care Visit [facility] [address] [place] [phone] Yue Muhammad, PT PT DISCIPLINE DISCHARGE NON VISIT/TELEPHONE 12:00 PM EST Home Care Visit [facility] [address] [place] [phone] Keisha Ricketts RN SN OASIS DISCHARGE VISIT Home Care Visit [facility] [address] [place] [phone] Keisha Ricketts, RN CASE COMMUNICATION 12/03/2 025 Telephone [facility] [address] [place] [address] Shahab Shelby, JULY Labs 025 12:30 AM EST Home Care Visit [facility] [address] [place] [address] Natalie Watts LPN BILINGUAL TEACHER AIDE HOME VISIT 025 Episode Documentation Update [facility] [address] [place] [address] Yue Solis 025 Episode Documentation Update [facility] [address] [place] [address] Yue Solis 025 11:30 AM EST Home Care Visit [facility] [address] [place] [address] Cee Peters RN SN HOME VISIT 025 2:30 PM EST Home Care Visit [facility] [address] [place] [address] Jo Perdomo, PT PT EVALUATION 025 10:30 AM EST Home Care Visit [facility] [address] [place] [address] Cee Peters RN SN HOME VISIT 025 Home Care Visit [facility] [address] [place] [address] Jo Perdomo, PT TELEPHONE ENCOUNTER 025 Home Care Visit [facility] [address] [place] [address] Erica Wyman, OT TELEPHONE ENCOUNTER 025 10:00 AM EST Home Care Visit [facility] [address] [place] [address] Megha Jacobsen, RN MISSED VISIT 025 Home Care Visit [facility] [address] [place] [address] Megha Jacobsen, JULY CASE COMMUNICATION 025 2:30 PM EST [facility] [address] [place] [address] Cee Peters, JULY SN OASIS RESUMPTION OF CARE ([place]) 025 Home Health Resumption of Care Planning [facility] [address] [place] [address] Rhonda Mason RN 025 Orders Only [facility] Gastroenterology Clinic [address] [place] [id number] Jarred Olivarez MD Kori-Ribera tear (Primary Dx) 025 1:09 PM EST - 025 1:24 PM EST Surgery [facility] Endoscopy Admitting Dept Virtual Department [address] [place] [address] Jarred Olivarez MD ESOPHAGOGASTRODUODENOSCOPY 025 9:17 AM EST Anesthesia Event [facility] Endoscopy Admitting Dept Virtual Department [address] [place] [phone] Vlad Starkey Jr., DO 025 5:30 AM EST Ancillary Procedure [facility] [place] Emergency Department - [address] [address] Elder Long, WATER ATTENDANT [facility] [address] [place] [address] Cee Peters, JULY SN OASIS TRANSFER 025 Telephone [facility] Primary [facility] Clinic [address] [place] [address] Afua Leblanc, SHERLY Medication Question 025 Procedure Pass [facility] Endoscopy Admitting Dept Virtual Department [address] [place] [id number] 025 1:10 PM EST - 025 4:50 PM EST Hospital Encounter [facility] [address] [place] [address] Marcella Cruz MD Brewer, Allison V, MD Lipkin-Moore, Zachary M, MD Israeli, Diana A, Freddie Rm MD Discharge Disposition: Home or Self Care Home Care Visit [facility] [address] [place] [address] Palmer Adams RN CASE COMMUNICATION Procedure Pass [facility], Ct Scan - [address] [address] Afua Leblanc CNP VNA Update; Request For Order(s) 1:00 PM EDT [facility] [address] [place] [address] Cee Peters RN SN HOME VISIT 11:00 AM EDT Office Visit [address] [address] Rodríguez Alcaraz MD Type II diabetes mellitus with peripheral circulatory disorder (Primary Dx); CKD stage 4 secondary to hypertension; Primary hypertension; Congestive heart failure, unspecified HF chronicity, unspecified heart failure type; Dental caries 12:30 AM EDT Home Care Visit [facility] [address] [place] [address] Natalie Watts LPN LPN HOME VISIT 11:00 AM EDT Home Care Visit [facility] [address] [place] [address] Cee Peters RN SN HOME VISIT 1:30 PM EDT Home Care Visit [facility] [address] [place] [address] Cee Peters RN SN HOME VISIT 1:45 AM EDT Home Care Visit [facility] [address] [place], [place] [phone] Ericka Cross, RN SN HOME VISIT Telephone [facility] Care [facility] [address] [place] [address] Afua Leblanc, SHERLY Appointment (Tcm+cdmg +/3. Discharge Date:05/27/25. Reason for Visit+ Diagnosis:fluid retention/) 025 1:30 AM EDT Home Care Visit [facility] [address] [place] [address] Natalie Watts LPN LPN HOME VISIT 025 2:30 PM EDT Home Care Visit [facility] [address] [place] [address] Cee Peters RN SN HOME VISIT 12:30 AM EDT Home Care Visit [facility] [address] [place] [address] Natalie Watts LPN LPN HOME VISIT Episode Documentation Update [facility] [address] [place] [address] Judy Vidal 025 12:30 PM EDT Home Care Visit [facility] [address] [place] [address] Cee Peters RN SN HOME VISIT Home Care Visit [facility] [address] [place] [address] Palmer Adams, RN CASE COMMUNICATION Home Care Visit [facility] [address] [place] [address] Natalie Watts LPN LPN HOME VISIT 025 Orders Only [facility] [place] [address] Altagracia Fisher MD 025 10:15 AM EDT Home Care Visit [facility] [address] [place] [address] Palmer Adams, JULY SN OASIS START OF CARE (SOC) 025 Telephone [facility] Primary Care [facility] [address] [place] [address] Afua Leblanc, SHERLY VNA Update 025 Plan of Care Documentation [facility] [address] [place] [phone] 025 Home Care Visit [facility] [address] [place] [address] Cee Peters RN SN NON OASIS DISCHARGE NON VISIT/TELEPHONE 025 Orders Only [facility] [address] [place] [address] Homehealth, Bushra Uribe, 025 3:06 PM EDT - 025 5:14 PM EDT Hospital Encounter [facility] Telemetry [facility] [address] [place] [address] Rafael Fay MD Wong, MD Mariia Guerin Shasta A, MD Miskovsky, MD Basil Mcgraw Maksim, DO Discharge Disposition: Home-Health Care Svc from Last 3 Months Immunizations Immunization Administration [...] Job End Date Retired, previously worked at [employer] Not on file Not on file Not [...] 09/29/2025 11:00 AM EST Office Visit [facility] [address] [place] [address], [place] [phone] Afua Leblanc CNP [address] [facility], [address] [place], [place] [phone] [email or web address] Scheduled [...] 10/19, 06/08/2020, Additional history exists COVID-19 VACCINE ( season) 2025 Adult Td,Tdap Booster 09/03/2025 09/03/2015 [...] Plan Chronic Condition Self-Management No Jazmyn Anderson, RN Note: Barriers: No identified barriers Manage and adhere to medication treatment plan Care Plan Medication Management No Jazmyn Anderson RN Note: Barriers: No identified barriers Medical Devices Implanted Type Area Multi Disciplined Language Analyst Device Identifier Shelf Expiration Date Model / Serial / Lot Lead Pacemaker Capsure Fix Novus Is-1 Bi Atr/Vntr Evelyne 52 Cm - [id number] Implanted:Qt y: 1 on 09/05/2018 by Matteo Rodriguez MD at [facility] Lead Left: Right Ventricle [employer] [id number] 06/21/2020 5076-52 / [id number] / Lead Pacemaker Capsure Fix Novus Is-1 Bi Atr/Vntr Evelyne 45 Cm - [id number] Implanted:Qt y: 1 on 09/05/2018 by Matteo Rodriguez MD at [facility] Lead Left: Atrium [employer] 06/21/2020 5076-45 / [id number] / Device Pacemaker Belt Xt Dr Crane - [id number] Implanted:Qt y: 1 on 09/05/2018 by Matteo Rodriguez MD at [facility] Pacemaker Left: Chest Wall [employer] [id number] 01/16/2020 [id number] / [id number] / Procedures Procedure Name Priority Date/Time [...] AND DIFFERENTIAL Routine 05/20/2025 5:26 AM EDT HEPATITIS C ANTIBODY, QUALITATIVE STAT 09/23/2024 4:12 AM EST LIPID PANEL Routine 04/03/2024 2:25 PM EDT Pure hypercholesterolemia from Last 3 Months or Most Recently Relevant to Health Maintenance Results * (ABNORMAL) Blood Urea Nitrogen (BUN) (07/23/2025 1:35 PM EST) Pathologist [facility] BUN 37(H) 6 - 23 mg/dL 07/23/2025 3:15 PM EST [facility] Blood (Blood) Venipuncture / Unknown 07/23/2025 1:35 PM EST 07/23/2025 1:35 PM EST Oleg Bill MD LAB BLOOD BKR ORD ERABLES Final Result Performing Organization Address City/[facility]/ZIP Co de Phone Number [address] [phone] * Creatine Kinase (CK) (07/23/2025 1:35 PM EST) Creatine Kinase (CK) 70 26 - 192 U/L 07/23/2025 3:15 PM EST [facility] Blood (Blood) Venipuncture / Unknown 07/23/2025 1:35 PM EST 07/23/2025 1:35 PM EST us Oleg Bill MD LAB BLOOD BKR ORD ERABLES Final Result Performing Organization Address [facility]/ZIP Co de Phone Number [address] [address] * (ABNORMAL) Electrolytes (07/23/2025 1:35 PM EST) Pathologist [facility] Sodium 135(L) 136 - 145 mmol/L 07/23/2025 3:15 PM [facility] Potassium 5.7(H) 3.4 - 5.1 mmol/L 07/23/2025 3:15 PM [facility] Comment:NOTE: Specimen hemol yzed. Results may be falsely increased. Chloride 101 98 - 107 mmol/L 07/23/2025 3:15 PM EST [facility] CO2 24 20 - 31 mmol/L 07/23/2025 3:15 PM [facility] Anion Gap 10 3 - 17 mmol/L 07/23/2025 3:15 PM [facility] Blood (Blood) Venipuncture / Unknown 07/23/2025 1:35 PM EST 07/23/2025 1:35 PM EST us Oleg Bill MD LAB BLOOD BKR ORD ERABLES Final Result Performing Organization Address City/[facility]/ZIP Co de Phone Number [address] [address] * (ABNORMAL) POCT Glucose (06/26/2025 7:33 AM EST) Only the most recent of21 resultswithin the time period is included. Glucose 169(H) 70 - 99 mg/dL 06/26/2025 7:34 AM EST [facility] Blood (Blood) 06/26/2025 7:3 3 AM EST 06/26/2025 7:34 AM EST us Freddie Hoyos MD LAB POCT DOCKED DEVICE UNSO LICTED RESULTS Final Result Performing Organization Address [facility] Co de Phone Number [address] [address] * Helicobacter pylori Antigen, Stool (06/26/2025 12:30 AM EST) Stool (Per Rectum) 06/26/2025 12:30 AM EST 06/26/2025 12:35 AM EST Narrative [facility] - 07/23/2025 7:23 PM EST Please check attached report for results Jose Luis Copeland MD LAB BODY FLUIDS AND ST OOL ORDERABLES Final Result Performing Organization Address [facility] Co de Phone Number [facility] [address] [address], [facility] * Magnesium (06/25/2025 6:13 PM EST) Only the most recent of9 resultswithin the time period is included. Magnesium 2.0 1.7 - 2.6 mg/dL 06/25/2025 6:50 PM EST [facility] Blood (Blood) Venipuncture / Unknown 06/25/2025 6:13 PM EST 06/25/2025 6:19 PM EST Jose Luis Copeland MD LAB BLOOD BKR ORDERABL ES Final Result Performing Organization Address [facility] Co de Phone Number [address] [place] [address] * (ABNORMAL) Basic Metabolic Panel (BMP) (06/25/2025 6:13 PM EST) Only the most recent of15 resultswithin the time period is included. Sodium 136 136 - 145 mmol/L 06/25/2025 6:50 PM [facility] [facility] Potassium 3.9 3.4 - 5.1 mmol/L 06/25/2025 6:50 PM [facility] Chloride 100 98 - 107 mmol/L 06/25/2025 6:50 PM [facility] CO2 22 20 - 31 mmol/L 06/25/2025 6:50 PM [facility] Anion Gap 14 3 - 17 mmol/L 06/25/2025 6:50 PM [facility] BUN 85(H) 6 - 23 mg/dL 06/25/2025 6:50 PM [facility] Creatinine 3.70(H) 0.50 - 1.00 mg/dL 06/25/2025 6:50 PM [facility] eGFR 12(L) >59 mL/min/1.7 3m2 06/25/2025 6:50 PM [facility] Comment:Estimated glomerular filtration rate calculated using the CKD-EPI refit equation. Glucose 219(H) 70 - 99 mg/dL 06/25/2025 6:50 PM [facility] Calcium 8.7 8.5 - 10.5 mg/dL 06/25/2025 6:50 PM [facility] Blood (Blood) Venipuncture / Unknown 06/25/2025 6:13 PM EST 06/25/2025 6:19 PM EST us Jose Luis Copeland MD LAB BLOOD BKR ORDERABL ES Final Result [address] [address] * Lab Add-On (06/25/2025 10:58 AM EST) Only the most recent of2 resultswithin the time period is included. Specimen Date/Time 06/25/2025 ~4 am 06/26/2025 11:18 AM [facility] Test Requested LFTs 06/26/2025 11:18 AM [facility] Specimen Description 06/26/2025 11:18 AM [facility] Comments 06/26/2025 11:18 AM [facility] Was this request processed? Yes 06/26/2025 11:18 AM [facility] Other (Other) 06/25/2025 10: 58 AM EST 06/25/2025 10:58 AM EST us Jose Luis Copeland MD LAB GENERAL ORDERABLES Final Result Performing Organization Address City/State/[facility] Co de Phone Number [address] [address] * (ABNORMAL) Hepatic Panel (LFTs) (06/25/2025 4:42 AM EST) Only the most recent of3 resultswithin the time period is included. AST 154(H) <33 U/L 06/25/2025 12:46 PM [facility] Comment:NOTE: Specimen hemol yzed. Results may be falsely increased. ALT 191(H) <34 U/L 06/25/2025 12:46 PM [facility] Alkaline Phosphatase 45 40 - 130 U/L 06/25/2025 12:46 PM [facility] Bilirubin, Total 0.2 0.0 - 1.2 mg/dL 06/25/2025 12:46 PM [facility] Bilirubin, Direct 0.1 0.0 - 0.3 mg/dL 06/25/2025 12:46 PM [facility] Total Protein 6.3(L) 6.4 - 8.3 g/dL 06/25/2025 12:46 PM [facility] Albumin 3.1(L) 3.5 - 5.2 g/dL 06/25/2025 12:46 PM [facility] Globulin 3.2 1.9 - 4.1 g/dL 06/25/2025 12:46 PM [facility] Blood (Blood) Catheter/Line / Unknown 06/25/2025 4:42 AM EST 06/25/2025 5:30 AM EST us Jose Luis Copeland MD LAB BLOOD BKR ORDERABL ES Final Result Performing Organization Address [facility] de Phone Number [address] [address] * Iron and Total Iron Binding Capacity (Iron/TIBC) (06/25/2025 4:42 AM EST) Iron 76 28 - 170 ug/dL 06/25/2025 10:57 AM [facility] Total Iron-Binding Capacity (TIBC) 241 220 - 460 ug/dL 06/25/2025 10:57 AM [facility] Transferrin Saturation 32 14 - 50 % 06/25/2025 10:57 AM [facility] Blood (Blood) Catheter/Line / Unknown 06/25/2025 4:42 AM EST 06/25/2025 5:30 AM EST us Jai Jones MD LAB BLOOD BKR ORDERABLES Final R esult Performing Organization Address [facility] Co de Phone Number [address] [address] * (ABNORMAL) CBC (06/25/2025 4:42 AM EST) Only the most recent of8 resultswithin the time period is included. WBC 8.87 4.00 - 11.00 K/uL 06/25/2025 5:37 AM [facility] RBC 3.24(L) 4.00 - 5.20 M/uL 06/25/2025 5:37 AM [facility] Hemoglobin 9.3(L) 12.0 - 16.0 g/dL 06/25/2025 5:37 AM [facility] Hematocrit 26.9(L) 36.0 - 46.0 % 06/25/2025 5:37 AM [facility] MCV 83.0 80.0 - 100.0 fL 06/25/2025 5:37 AM [facility] MCH 28.7 27.0 - 31.0 pg 06/25/2025 5:37 AM [facility] MCHC 34.6 32.0 - 36.0 g/dL 06/25/2025 5:37 AM [facility] PLT 142(L) 150 - 450 K/uL 06/25/2025 5:37 AM [facility] MPV 11.2 8.4 - 12.0 fL 06/25/2025 5:37 AM [facility] RDW-CV 14.3 11.5 - 14.5 % 06/25/2025 5:37 AM [facility] Absolute NRBC 0.02(H) <=0.00 K cells/uL 06/25/2025 5:37 AM [facility] NRBC 0.2(H) <=0.0 /100 WBCs 06/25/2025 5:37 AM [facility] Blood (Blood) Catheter/Line / Unknown 06/25/2025 4:42 AM EST 06/25/2025 5:30 AM EST us Elder Long NP LAB BLOOD BKR ORDERABLES Final R esult Performing Organization Address City/[facility]/ZIP Co de Phone Number [address] [address] * Phosphorus (06/25/2025 4:42 AM EST) Only the most recent of5 resultswithin the time period is included. Phosphorus 3.6 2.5 - 4.5 mg/dL 06/25/2025 6:04 AM [facility] Blood (Blood) Catheter/Line / Unknown 06/25/2025 4:42 AM EST 06/25/2025 5:30 AM EST us Jose Luis Copeland MD LAB BLOOD BKR ORDERABL ES Final Result Performing Organization Address City/[facility]/ZIP Co de Phone Number [address] [address] * (ABNORMAL) Ferritin (06/25/2025 4:42 AM EST) Ferritin 278(H) 30 - 150 ug/L 06/25/2025 10:57 AM EST [facility] Comment:The lower limit of t he reference range has been increased to 30 ug/L for all adults to reflect a physiologically sufficient level. See Document Link for additional information. Blood (Blood) Catheter/Line / Unknown 06/25/2025 4:42 AM EST 06/25/2025 5:30 AM EST us Jai Jones MD LAB BLOOD BKR ORDERABLES Final R esult [address] [address] * (ABNORMAL) Ionized Calcium (06/25/2025 4:42 AM EST) Only the most recent of4 resultswithin the time period is included. Ionized Calcium 1.06(L) 1.14 - 1.30 mmol/L 06/25/2025 5:47 AM EST [facility] Blood (Blood, Venous) Catheter/Line / Unknown 06/25/2025 4:42 AM EST 06/25/2025 5:44 AM EST us Jose Luis Copeland MD LAB BLOOD BKR ORDERABL ES Final Result [address] [address] * Lactate, Whole Blood (06/24/2025 2:12 PM EST) Only the most recent of4 resultswithin the time period is included. Lactate, Whole Blood 1.7 0.5 - 2.0 mmol/L 06/24/2025 2:22 PM EST [facility] Blood (Blood, Venous) Venipuncture / Unknown 06/24/2025 2:12 PM EST 06/24/2025 2:16 PM EST Jose Luis Copeland MD LAB BLOOD BKR ORDERABL ES Final Result Performing Organization Address [facility] de Phone Number [address] [address] * (ABNORMAL) Procalcitonin (06/24/2025 2:12 PM EST) Procalcitonin 2.27(H) 0.00 - 0.25 ng/mL 06/24/2025 3:08 PM EST [facility] Comment: <=0.25 ng/mL: Bacterial pneumonia is unlikely. [...] 2:12 PM EST 06/24/2025 2:17 PM EST us Jose Luis Copeland MD LAB BLOOD BKR ORDERABL ES Final Result Performing Organization Address [facility] Co de Phone Number [address] [address] * ENDOSCOPY PROCEDURE (06/24/2025 9:17 AM EST) Narrative Transcriptions Jarred Olivarez MD - 06/24/2025 9:17 AM EST [facility] Patient Name: Belkys Florian Attending MD:: JARRED OLIVAREZ MD, , Procedure Date: 06/24/2025 9:17 AM Date of : 1950 Age: 74 Admit Type: Inpatient Gender: Female Room: [place] [address] Referring MD: Afua Leblanc Exam Type: Upper [...] 9:17 AM Procedure Code(s): --- Professional --- 58987, Esophagogastroduodenoscopy, flexible, transoral; diagnostic, including collection of specimen(s) by brushing or washing, when performed (separate procedure) --- Technical --- 99493, Esophagogastroduodenoscopy, flexible, transoral; diagnostic, including collection of specimen(s) by brushing or washing, when performed (separate procedure) Diagnosis Code(s): --- Professional --- K44.9, Diaphragmatic hernia without obstruction or gangrene K20.90, Esophagitis, unspecified without bleeding K22.6, Gastro-esophageal laceration-hemorrhagesyndrome K92.0, Hematemesis --- Technical --- K44.9, Diaphragmatic hernia without obstruction or gangrene K20.90, Esophagitis, unspecified without bleeding K22.6, Gastro-esophageal laceration-hemorrhagesyndrome K92.0, Hematemesis CPT copyright 2021 [employer]. All rights reserved. The codes documented in this report are preliminary and upon vascular surgeon reviewmay be revised to meet current compliance requirements. Procedure Date: 06/24/2025 9:17:[address] [place] [address] Afua Leblanc FRO[facility]EN [facility] PROCEDURE ORDERABLES Alejandra l Result * US BEDSIDE (06/24/2025 5:27 AM EST) Anatomical Region Laterality Modality Ultrasound Narrative 06/24/2025 5:27 AM EST Elder Long NP 06/24/2025 5:27 AM Bedside Ultrasound Date/Time: 06/24/2025 5:27 AM Performed by: Long, Elder P, WATER ATTENDANT Authorized by: Elder Long NP Exam Type: Procedural Guidance Procedural Guidance: Indication: Procedural Guidance Bedside Ultrasound was used to perform Peripheral IV Placement. Please see separately documented procedure note to see details of procedure. Accession Number: [id number] us Elder Long NP IMG POINT OF [...] - 1,666 mg/dL 06/24/2025 5:05 AM EST [facility] Urine (Urine, Voided) Non-Blood Collection / Unknown 06/24/2025 4:11 AM EST 06/24/2025 4:22 AM EST us Elder Long NP LAB URINE ORDERABLES Final Resul t [facility] [address] [place] [address] * Sodium, Random Urine (06/24/2025 4:11 AM EST) Only the most recent of2 resultswithin the time period is included. Sodium, Urine 76 mmol/L 06/24/2025 5:05 AM EST [facility] Urine (Urine, Voided) Non-Blood Collection / Unknown 06/24/2025 4:11 AM EST 06/24/2025 4:22 AM EST [facility] - 06/24/2025 5:05 AM EST The reference interval(s) are unavailable for this specimen type. Comparison of this result with other laboratory results, such as the concentration in the blood, serum, or plasma, is recommended. The test result should be integrated into the clinical context for interpretation. Elder Long NP LAB URINE ORDERABLES Final Resul t Performing Organization Address [facility] Co de Phone Number [address] [address] * Creatinine, Random Urine (06/24/2025 4:11 AM EST) Creatinine, Urine 32 mg/dL 06/24/2025 5:05 AM EST [facility] Urine (Urine, Voided) Non-Blood Collection / Unknown 06/24/2025 4:11 AM EST 06/24/2025 4:22 AM EST [facility] - 06/24/2025 5:05 AM EST The reference interval(s) are unavailable for this specimen type. Comparison of this result with other laboratory results, such as the concentration in the blood, serum, or plasma, is recommended. The test result should be integrated into the clinical context for interpretation. us Elder Long NP LAB URINE ORDERABLES Final Resul t Performing Organization Address [facility] Co de Phone Number [address] [address] * Thyroid Stimulating Hormone (TSH), with Reflex (06/24/2025 4:08 AM EST) TSH 1.80 0.40 - 5.90 uIU/mL 06/24/2025 5:01 AM EST [facility] Blood (Blood) Catheter/Line / Unknown 06/24/2025 4:08 AM EST 06/24/2025 4:24 AM EST us Elder Long WATER ATTENDANT LAB BLOOD BKR ORDERABLES Final R esult Performing Organization Address [facility] Co de Phone Number [address] [address] * (ABNORMAL) PT-INR (06/24/2025 4:08 AM EST) Only the most recent of2 resultswithin the time period is included. PT 15.1(H) 10.0 - 13.0 sec 06/24/2025 4:41 AM [facility] INR 1.2(H) 0.9 - 1.1 06/24/2025 4:41 AM [facility] Comment:Therapeutic Range 2. 0 - 3.5 Blood (Blood) Catheter/Line / Unknown 06/24/2025 4:08 AM EST 06/24/2025 4:24 AM EST us Elder Long WATER ATTENDANT LAB BLOOD BKR ORDERABLES Final R esult Performing Organization Address City/[facility] Co de Phone Number [address] [address] * (ABNORMAL) NT-proBNP (06/24/2025 4:08 AM EST) Only the most recent of2 resultswithin the time period is included. NT-ProBNP 5,288(H) 0 - 900 pg/mL 06/24/2025 5:01 AM [facility] Comment: Age <50 years: 0-450 pg/ml [...] ORDERABLES Final R esult Performing Organization Address [facility] de Phone Number [address] [address] * (ABNORMAL) Hemoglobin A1c (06/24/2025 4:08 AM EST) Hemoglobin A1c 6.2(H) 4.3 - 5.6 % 06/24/2025 4:53 AM EST [facility] Calculated Mean Blood Glucose 131 mg/dL 06/24/2025 4:53 AM EST [facility] Comment:There is no establis hed normal range for the Estimated Average Glucose [...] ORDERABLES Final R esult Performing Organization Address [facility] de Phone Number [address] [address] * Transfuse Cryoprecipitate (06/24/2025 2:54 AM EST) Only the most recent of2 resultswithin the time period is included. us Elder Long NP NURSING TREATMENT ORDERABLES - B LOOD ADMIN Final Result Performing Organization Address [facility] de Phone Number [email or web address] * Transfuse RBC (06/24/2025 1:55 AM EST) Only the most recent of3 resultswithin the time period is included. us Marina Head MD NURSING TREATMENT ORDERABLE S - BLOOD ADMIN Final Result [facility] * Prepare Cryoprecipitate, 2 Pools (06/24/2025 12:37 AM EST) Unit Number [id number] 06/24/2025 1:19 AM EST [facility] Component Type TH CRYO POOL 06/24/2025 1:19 AM EST [facility] Blood Product Code [id number] 06/24/2025 1:19 AM EST [facility] Unit Division 00 06/24/2025 1:19 AM EST [facility] Product Status TRANSFUSED 06/24/2025 2:54 AM EST [facility] Unit Number [id number] 06/24/2025 1:19 AM EST [facility] Component Type TH CRYO POOL 06/24/2025 1:19 AM EST [facility] Blood Product Code [id number] 06/24/2025 1:19 AM EST [facility] Unit Division 00 06/24/2025 1:19 AM EST [facility] Product Status TRANSFUSED 06/24/2025 2:53 AM EST [facility] 06/24/2025 12:3 7 AM EST us Elder Long WATER ATTENDANT BLOOD BANK PRODUCT ORDERABLES Fi nal Result Performing Organization Address City/[facility]/ZIP Co de Phone Number [address] [address] * CT ABDOMEN/PELVIS WITHOUT CONTRAST (06/23/2025 11:55 PM EST) [facility] [place] IMG CHIEF CONTROLLER STATION COMMENT Hyperattenuating material in the gastric antrum/duodenal bulb suggestive of blood products and potential site of active bleeding. [facility] Anatomical Region Laterality Modality Abdomen, Pelvis Computed [...] to exclude cystitis. * Small left and mhdps-zy-zduqtucz right pleural effusions. * Bronchial wall thickening in the right greater than left lower lobes with multifocal mucus plugging concerning for potential aspiration/aspirated blood products. * Mild dilation of the pancreatic duct which appears similar to prior MRCP from 01/09/2019. Nonemergent follow-up MRCP could be considered. A clinically significant result was initiated on 06/24/2025 1:19 AM, Message ID [id number]. Narrative 06/24/2025 1:[address] ABDOMEN/PELVIS [...] PATHOLOGY. FINDINGS: Lower Chest: Small left and foktk-ia-pcuokpht right pleural effusions. Diffuse bronchial wall thickening [...] PATHOLOGY. FINDINGS: Lower Chest: Small left and hesie-sa-cbggcblp right pleural effusions.Diffuse bronchial wall thickening with [...] recommended to excludecystitis. * Small left and tnwbb-fn-wogdmjyn right pleural effusions. * Bronchial wall thickening in the right greater than left lower lobeswith multifocal mucus plugging concerning for potentialaspiration/aspirated blood products. * Mild dilation of the pancreatic duct which appears similar to priorMRCP from 01/09/2019. Nonemergent follow-up MRCP could be considered. A clinically significant result was initiated on 06/24/2025 1:19 AM,Message ID [id number]. us Marcella Cruz MD IMG CT ABD/PELVIS Final Resu lt * (ABNORMAL) Fibrinogen (06/23/2025 10:34 PM EST) Fibrinogen 177(L) 200 - 400 mg/dL 06/23/2025 11:49 PM EST [facility] Blood (Blood) Catheter/Line / Unknown 06/23/2025 10:34 PM EST 06/23/2025 10:51 PM EST us Elder Long WATER ATTENDANT LAB BLOOD BKR ORDERABLES Final R esult Performing Organization Address [facility]/ZIP Co de Phone Number [address] [address] * (ABNORMAL) Osmolality, Blood (06/23/2025 10:34 PM EST) Only the most recent of3 resultswithin the time period is included. Osmolality 354(HH) 280 - 296 mOsm/kg water 06/23/2025 11:20 PM [facility] Blood (Blood) Catheter/Line / Unknown 06/23/2025 10:34 PM EST 06/23/2025 10:52 PM EST us Elder Long WATER ATTENDANT LAB BLOOD BKR ORDERABLES Final R [facility] Performing Organization Address [facility] Co de Phone Number [address] [address] * (ABNORMAL) Urinalysis with Reflex to Urine Culture (06/23/2025 7:21 PM EST) Color Yellow Yellow 06/23/2025 8:29 PM [facility] Clarity Clear Clear 06/23/2025 8:29 PM [facility] Glucose 1+(A) Negative 06/23/2025 8:29 PM [facility] Bilirubin Urine Negative Negative 8:29 PM [facility] Ketone Urine Negative Negative 06/23/2025 8:29 PM [facility] Specific [place] 1.015 1.001 - 1.035 06/23/2025 8:29 PM [facility] Blood Negative Negative 06/23/2025 8:29 PM [facility] pH 6.0 5.0 - 8.0 06/23/2025 8:29 PM [facility] Protein 2+(A) Negative 06/23/2025 8:29 PM [facility] Nitrites Negative Negative 06/23/2025 8:29 PM [facility] Leukocyte Esterase Negative Negative 06/23/2025 8:29 PM [facility] Urobilinogen Negative Negative 06/23/2025 8:29 PM [facility] Urine (Urine, Voided) Non-Blood Collection / Unknown 06/23/2025 7:21 PM EST 06/23/2025 7:32 PM EST us Marcella Cruz MD LAB URINE ORDERABLES Final R esult Performing Organization Address City/[facility]/ZIP Co de Phone Number [address] [address] * (ABNORMAL) URINE SEDIMENT (06/23/2025 7:21 PM EST) WBC 0-2 0 - 9 /hpf 06/23/2025 8:51 PM [facility] RBC 0-2 0 - 2 /hpf 06/23/2025 8:51 PM [facility] Squamous Epithelial Cells 1-2(A) Not Present /hpf 06/23/2025 8:51 PM [facility] Urine (Urine, Voided) Non-Blood Collection / Unknown 06/23/2025 7:21 PM EST 06/23/2025 7:32 PM EST us Marcella Cruz MD LAB URINE ORDERABLES Final R esult Performing Organization Address City/[facility]/ZIP Co de Phone Number [address] [address] * ECG 12-LEAD (06/23/2025 6:35 PM EST) Only the most recent of2 resultswithin the time period is included. Ventricular Rate EKG/MIN 67 BPM [facility] Atrial Rate 67 BPM [facility] TX Interval 204 ms [facility] QRS Duration 204 ms [facility] QT Interval 530 ms [facility] QTC Interval 560 ms [facility] P [place] 44 degrees [facility] R Wave [place] 62 degrees [facility] T Wave [place] 234 degrees [facility] 06/23/2025 6:35 PM EST 06/24/2025 9:19 AM EST Narrative [facility] - 06/24/2025 9:19 AM EST Atrial-sensed ventricular-paced rhythm Abnormal ECG When compared with ECG of 23-Jun-2025 14:10, Vent. rate has increased by 7 bpm Confirmed by Travis Schulz ([id number]) on 06/24/2025 9:19:26 AM us Marcella Cruz MD ECG ORDERABLES Final Result Performing Organization Address City/[facility]/ZIP Co de Phone Number [facility] * (ABNORMAL) Troponin (06/23/2025 6:00 PM EST) Only the most recent of2 resultswithin the time period is included. Troponin-T HS Gen5 64(H) 0 - 9 ng/L 06/23/2025 7:46 PM EST [facility] Blood (Blood) 06/23/2025 6:0 0 PM EST 06/23/2025 6:09 PM EST us Marcella Cruz MD LAB BLOOD BKR ORDERABLES Fin al Result [address] [address] * Type and Screen (ABO, Rh, Antibody Screen) (06/23/2025 3:55 PM EST) ABO/RH O Positive 06/23/2025 4:59 PM EST [facility] Antibody Screen Negative 06/23/2025 4:59 PM EST [facility] Sample Expires 06/26/2025,2 359 06/23/2025 4:59 PM EST [facility] Blood (Blood) Catheter/Line / Unknown 06/23/2025 3:55 PM EST 06/23/2025 4:05 PM EST us Marcella Cruz MD LAB BLOOD BANK TEST ORDERABL ES Final Result [facility], [address] [place] [address] [address] [address] [address] * Prepare RBC (06/23/2025 3:55 PM EST) [facility] Unit Number [id number] 06/23/2025 5:02 PM [facility] Component Type APHER RBC LR C1 06/23/2025 5:02 PM [facility] Blood Product Code [id number] 06/23/2025 5:02 PM [facility] Unit Division 00 06/23/2025 5:02 PM [facility] Product Status TRANSFUSED 06/23/2025 9:28 PM EST [facility] Resulting Agency [facility] Unit Number [id number] 06/23/2025 5:02 PM [facility] Component Type RBC LR 06/23/2025 5:02 PM [facility] Blood Product Code [id number] 06/23/2025 5:02 PM [facility] Unit Division 00 06/23/2025 5:02 PM [facility] Product Status TRANSFUSED 06/23/2025 10:11 PM [facility] Issue Date/Time [id number] 06/23/2025 8:08 PM [facility] ISBT Product Code [id number] 06/23/2025 8:08 PM [facility] Unit Type and Rh O NEG 06/23/2025 8:08 PM [facility] ISBT Product Blood Type 9500 06/23/2025 8:08 PM [facility] Blood Product Expiration Date [id number] 06/23/2025 8:08 PM [facility] Issue Date/Time [id number] 06/23/2025 9:09 PM [facility] ISBT Product Code [id number] 06/23/2025 9:09 PM [facility] Unit Type and Rh O POS 06/23/2025 9:09 PM [facility] ISBT Product Blood Type 5100 06/23/2025 9:09 PM [facility] Blood Product Expiration Date [id number] 06/23/2025 9:09 PM [facility] Unit Number [id number] 06/23/2025 10:09 PM [facility] Component Type RBC LR 06/23/2025 10:09 PM [facility] Blood Product Code [id number] 06/23/2025 10:09 PM [facility] Unit Division 00 06/23/2025 10:09 PM [facility] Product Status RELEASED 06/27/2025 7:07 AM [facility] Unit Number [id number] 06/23/2025 10:09 PM [facility] Component Type RBC LR 06/23/2025 10:09 PM [facility] Blood Product Code [id number] 06/23/2025 10:09 PM [facility] Unit Division 00 06/23/2025 10:09 PM [facility] Product Status TRANSFUSED 06/24/2025 1:55 AM [facility] Issue Date/Time [id number] 06/24/2025 12:36 AM [facility] ISBT Product Code [id number] 06/24/2025 12:36 AM [facility] Unit Type and Rh O POS 06/24/2025 12:36 AM [facility] ISBT Product Blood Type 5100 06/24/2025 12:36 AM [facility] Blood Product Expiration Date [id number] 06/24/2025 12:36 AM [facility] 06/23/2025 3:55 PM EST us Marcella Cruz MD BLOOD BANK PRODUCT ORDERABLE S Final Result [facility] [address] [place] [address] [address] * Blood Culture, Routine (06/23/2025 3:50 PM EST) Only the most recent of2 resultswithin the time period is included. [facility] Blood Culture/Test No growth at 5 days 06/28/2025 4:25 PM EST [facility] Blood (Blood) Catheter/Line / Unknown 06/23/2025 3:50 PM EST 06/23/2025 4:11 PM EST us Marcella Cruz MD LAB MICROBIOLOGY CULTURE ORD ERABLES Final Result [address] [address] * Ethanol, Blood (06/23/2025 2:54 PM EST) [facility] Ethanol <10 Negative; <11 mg/dL 06/23/2025 4:10 PM [facility] Blood (Blood) Catheter/Line / Unknown 06/23/2025 2:54 PM EST 06/23/2025 3:14 PM EST us Marcella Cruz MD LAB BLOOD BKR ORDERABLES Fin al Result [address] [address] * (ABNORMAL) CBC and Differential (06/23/2025 2:54 PM EST) [facility] WBC 9.16 4.00 - 11.00 K/uL 06/23/2025 4:21 PM [facility] RBC 1.51(L) 4.00 - 5.20 M/uL 06/23/2025 4:21 PM [facility] Hemoglobin 4.0(LL) 12.0 - 16.0 g/dL 06/23/2025 4:21 PM [facility] Comment:Checked by repeat an alysis Hematocrit 12.5(LL) 36.0 - 46.0 % 06/23/2025 4:21 PM [facility] Comment:Checked by repeat an alysis MCV 82.8 80.0 - 100.0 fL 06/23/2025 4:21 PM [facility] MCH 26.5(L) 27.0 - 31.0 pg 06/23/2025 4:21 PM [facility] MCHC 32.0 32.0 - 36.0 g/dL 06/23/2025 4:21 PM [facility] MPV 10.9 8.4 - 12.0 fL 06/23/2025 4:21 PM [facility] RDW-CV 13.9 11.5 - 14.5 % 06/23/2025 4:21 PM [facility] PLT 153 150 - 450 K/uL 06/23/2025 4: PM [facility] Neutrophils 88.8 % 06/23/2025 4: PM [facility] Lymphocytes 7.4 % 06/23/2025 4: PM [facility] Monocytes 3.3 % 06/23/2025 4: PM [facility] Eosinophils 0.0 % 06/23/2025 4: PM [facility] Basophils 0.0 % 06/23/2025 4: PM [facility] Imm Grans 0.5 % 06/23/2025 4: PM [facility] NRBC 0.0 <=0.0 /100 WBCs 06/23/2025 4:21 PM [facility] Absolute Neutrophils 8.13(H) 1.92 - 7.60 K/uL 06/23/2025 4:21 PM [facility] Absolute Lymphocytes 0.68(L) 0.72 - 4.10 K/uL 06/23/2025 4:21 PM [facility] Absolute Monocytes 0.30 0.16 - 1.10 K/uL 06/23/2025 4:21 PM [facility] Absolute Eosinophils 0.00 0.00 - 0.50 K/uL 06/23/2025 4:21 PM [facility] Absolute Basophils 0.00 0.00 - 0.15 K/uL 06/23/2025 4:21 PM [facility] Absolute Imm Grans 0.05 0.00 - 0.09 K/uL 06/23/2025 4:21 PM [facility] Absolute NRBC 0.00 <=0.00 K cells/uL 06/23/2025 4:21 PM [facility] Absolute Neutrophils 06/23/2025 4:21 PM [facility] Comment:Not Measured: Diff Type Auto 06/23/2025 4:21 PM [facility] Blood (Blood) Catheter/Line / Unknown 06/23/2025 2:54 PM EST 06/23/2025 3:14 PM EST Marcella Cruz MD LAB BLOOD BKR ORDERABLES Fin al Result [address] [address] * (ABNORMAL) Lipase (06/23/2025 2:54 PM EST) Lipase 106(H) 13 - 60 U/L 06/23/2025 4:06 PM [facility] Blood (Blood) Catheter/Line / Unknown 06/23/2025 2:54 PM EST 06/23/2025 3:14 PM EST Marcella Cruz MD LAB BLOOD BKR ORDERABLES Fin al Result [address] [address] * (ABNORMAL) Venous Blood Gas (VBG) (06/23/2025 2:54 PM EST) pH, Venous 7.32 7.31 - 7.41 06/23/2025 3:17 PM [facility] pCO2, Venous 42 35 - 45 mm[Hg] 06/23/2025 3:17 PM [facility] pO2, Venous 121(H) 35 - 40 mm[Hg] 06/23/2025 3:17 PM [facility] Base Excess -4.4(L) -3.0 - 3.0 mmol/L 06/23/2025 3:17 PM EST [facility] Bicarbonate (HCO3) 21(L) 23 - 28 mmol/L 06/23/2025 3:17 PM EST [facility] Oxygen Saturation, Venous 97.9(H) 60.0 - 80.0 % 06/23/2025 3:17 PM EST [facility] Blood (Blood, Venous) Catheter/Line / Unknown 06/23/2025 2:54 PM EST 06/23/2025 3:13 PM EST us Marcella Cruz MD LAB BLOOD BKR ORDERABLES Fin al Result Performing Organization Address City/[facility]/ZIP Co de Phone Number [address] [address] * 2nd Type (New Sample) (06/23/2025 2:52 PM EST) ABO/RH O Positive 06/23/2025 5:01 PM EST [facility] Blood (Blood) Catheter/Line / Unknown 06/23/2025 2:52 PM EST 06/23/2025 4:34 PM EST Marcella Cruz MD LAB BLOOD BANK TEST ORDERABL ES Final Result Performing Organization Address [facility]/ZIP Co de Phone Number [facility], [address] [place] [phone] [address] * XR Chest Portable (06/23/2025 1:39 PM EST) Anatomical Region Laterality Modality Chest Computed Radiogr aphy 06/23/2025 2:37 PM EST Impressions 06/23/2025 2:41 PM EST Likely small pleural effusions, decreased. Narrative 06/23/2025 2:41 PM EST XR CHEST PORTABLE Referring clinician's provided indication for this examination in Epic: Fatigue COMPARISON: XR CHEST PA AND LATERAL 2 VIEWS FINDINGS: Devices/Tubes/Lines: Unchanged left chest cardiac device. Lungs: Bibasilar opacity likely atelectasis. Pleura: Probable small pleural effusions, decreased from prior. Heart/Mediastinum: Normal heart and mediastinum. Bones/Soft Tissues: No significant abnormality. Procedure Note Filiberto Oseguera MD - 06/23/2025 XR CHEST PORTABLE Referring clinician's provided indication for this examination in Epic:Fatigue COMPARISON: XR CHEST PA AND LATERAL 2 [...] 11:58 AM EDT) Only the most recent of31 resultswithin the time period is included. [facility] Glucose, POCT 152(H) 70 - 100 mg/dL [facility] 05/27/2025 11:5 8 AM EDT 05/27/2025 12:00 PM EDT us Freddie Hoyos MD POINT OF CARE TEST ORDERABL ES Final Result [address] [address] * (ABNORMAL) Comprehensive metabolic panel (05/27/2025 5:35 AM EDT) [facility] SODIUM 129(L) 133 - 146 mmol/L [facility] POTASSIUM 4.9 3.3 - 5.1 mmol/L [facility] CHLORIDE 94(L) 96 - 108 mmol/L [facility] CO2 23 21 - 35 mmol/L [facility] BUN 64(H) 6 - 19 mg/dL [facility] CREATININE 3.80(H) 0.5 - 1.5 mg/dL [facility] GLUCOSE 137(H) 70 - 99 mg/dL [facility] ALBUMIN 3.5(L) 3.9 - 4.8 g/dL [facility] TOTAL PROTEIN 7.3 6.5 - 8.0 g/dL [facility] CALCIUM 9.2 8.4 - 10.3 mg/dL [facility] ALKALINE PHOSPHATASE 74 39 - 117 U/L [facility] TOTAL BILIRUBIN 0.3 0.0 - 1.2 mg/dL [facility] AST 22 0 - 37 U/L [facility] ALT 23 0 - 40 U/L [facility] GLOBULIN 3.8 1 - 4.8 g/dL [facility] EGFR 12(L) >59 mL/min/1.7 3m2 [facility] Comment:Estimated glomerular filtration rate calculated using the CKD-EPI refit equation. ANION GAP 17 10 - 20 mmol/L [facility] Blood 05/27/2025 5:35 AM EDT 05/27/2025 5:49 AM EDT us Izabela Jean WATER ATTENDANT LAB BLOOD BKR ORDERABLES Final Result [address] [address] * XR CHEST PA AND LATERAL 2 [...] clinician's provided indication for this examination in Epic:Hypoxia; Dyspnea (Shortness of Breath) COMPARISON: XR CHEST [...] 17.1 6.02 - 18.4 ug/dL [facility] Blood 05/25/2025 6:0 5 AM EDT 05/25/2025 6:53 AM EDT us Freddie Hoyos MD LAB BLOOD BKR ORDERABLES Fi nal Result [address] [address] * Osmolality, Random Urine (05/24/2025 12:37 PM EDT) URINE OSMOLALITY 317 mOsm/kg water [facility] Urine (Urine) 05/24/2025 12: 37 PM EDT 05/24/2025 1:02 PM EDT us Freddie Hoyos MD LAB URINE ORDERABLES Final Result [facility] [address] [place] [address] * NC Myocardial Perfusion Pharmacologic Stress Multiple (05/22/2025 12:36 PM EDT) Max Predicted Heart Rate 146 bpm [facility] Anatomical Region Laterality Modality Heart, Vascular Nuclear [...] separately. Please refer to that report in Epic. COMPARISON: No prior cardiac SPECT is available [...] reportedseparately. Please refer to that report in Epic. COMPARISON: No prior cardiac SPECT is available [...] reportoriginally created by Steven Gorman. us Travis Bello Arcoleo DO CV NM CARDIAC Final Result * NC Stress Result for Nuclear Stress Test (05/22/2025 11:29 AM EDT) Max Predicted Heart Rate 146 bpm [facility] Max BP Systolic 128 mmHg [facility] Max BP Diastolic 64 mmHg [facility] Max HR 69 BPM [facility] Resting HR 60 BPM [facility] Resting BP Systolic 128 mmHg [facility] Resting BP Diastolic 64 mmHg [facility] Peak METS 1.0 METS [facility] Peak HR 61 BPM [facility] Anatomical Region Laterality Modality Heart Other 05/22/2025 [...] by injection of Tc99m Sestamibi by Estefani supervisor nuclear medicine. 1. EKG - Baseline EKG showed A [...] clinician's provided indication for this examination in [facility]: Abnormal xray - pleural effusion COMPARISON: [...] clinician's provided indication for this examination in [facility]:Abnormal xray - pleural effusion COMPARISON: XR [...] 5:58 AM EDT) Only the most recent of2 resultswithin the time period is included. WBC 3.72(L) 4.00 - 11.00 K/uL [facility] RBC 4.03 4.00 - 5.20 M/uL [facility] HGB 10.6(L) 12.0 - 16.0 g/dL [facility] HCT 32.9(L) 36.0 - 46.0 % [facility] PLT 260 150 - 450 K/uL [facility] MCV 81.6 80.0 - 100.0 fL [facility] MCH 26.3(L) 27.0 - 31.0 pg [facility] MCHC 32.2 32.0 - 36.0 g/dL [facility] RDW 13.6 11.5 - 14.5 % [facility] MPV 10.4 8.4 - 12.0 fL [facility] NRBC 0.00 0.00 /100 WBCs [facility] ABSOLUTE NRBC 0.00 0.00 K/uL [facility] DIFF METHOD Auto [facility] NEUTS 59.2 48.0 - 76.0 % [facility] LYMPHS 20.2 18.0 - 41.0 % [facility] MONOS 18.5(H) 4.0 - 11.0 % [facility] EOS 1.3 0.0 - 5.0 % [facility] BASOS 0.5 0.0 - 1.5 % [facility] Granulocytes, immature (%) 0.3 0.0 - 0.9 % [facility] ABSOLUTE NEUTS 2.20 1.92 - 7.60 K/uL [facility] ABSOLUTE LYMPHS 0.75 0.72 - 4.10 K/uL [facility] ABSOLUTE MONOS 0.69 0.16 - 1.10 K/uL [facility] ABSOLUTE EOS 0.05 0.00 - 0.50 K/uL [facility] ABSOLUTE BASOS 0.02 0.00 - 0.15 K/uL [facility] Granulocytes, immature 0.01 0.00 - 0.09 K/uL [facility] Blood 05/21/2025 5:58 AM EDT 05/21/2025 6:13 AM EDT us Yoana Chiang MD LAB BLOOD BKR ORDERABLES Fi nal Result [address] [address] * Hepatitis C antibody, qualitative (09/23/2024 4:12 AM EST) HCV NON-REACTIV E NON-REACTI VE [facility] Blood 09/23/2024 4:12 AM EST 09/23/2024 5:15 AM EST us Pallavi Ceron WATER ATTENDANT LAB BLOOD BKR ORDERABLE S Final Result Performing Organization Address [facility] Co de Phone Number [address] [address] * (ABNORMAL) Lipid panel (04/03/2024 2:25 PM EDT) HDL 56 mg/dL [facility] Comment: Interpretation <40 mg/dL: Low HDL cholesterol (major risk factor for CHD) Greater than or equal to 60 mg/dL: High HDL cholesterol ( negative risk factor for CHD) HDL - cholesterol is affected by a number of factors, e.g. smoking, excerise, hormones, sex and age. CHOLESTEROL 248(H) 0 - 240 mg/dL [facility] TRIGLYCERIDES 214(H) 30 - 160 mg/dL [facility] LDL 149(H) 50 - 129 mg/dL [facility] Comment: LDL levels in terms of risk for coronary heart disease: <100 mg/dL: Optimal 100-129 mg/dL: Near or above optimal 130-159 mg/dL: Borderline high 160-189 mg/dL: High >190 mg/dL: Very High CARDIAC RISK RATIO 4.4 3.3 - 4.4 [facility] Blood 04/03/2024 2:25 PM EDT 04/03/2024 2:31 PM EDT us Afua Leblanc FROZEN YOGURT MAKER LAB BLOOD BKR ORDERABLES Fin al Result Performing Organization Address [facility] Co de Phone Number [address] [address] from Last 3 Months or Most Recently Relevant to Health Maintenance Additional Health Concerns Active Problems Noted Date Diagnosed Date Chronic Condition Self-Management 06/25/2018 Medication Management 06/25/2018 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 04/03/2024 Insurance [place] [facility] [place] Member Subscriber Plan / Payer (Ef fective 2020-Present) Name:Belkys Florian Member ID:[id number] Relation to Subscriber:Self Name:Belkys Florian Subscriber ID:[id number] Payer ID:[id number] Group ID:Not on file Type:Medicare Address: [employer] [place] [id number] [place] [facility] MEDIC[facility] PART A & B Advance Directives For more information, please contact: [phone] (9AM - 5PM [facility], Monday-Monday) Documents on File Type Date Recorded Patient Commercial Review Appraiser Expl anation Healthcare Proxy 06/27/2025 6:46 PM [...] Agent (Proxy form on file) Care Teams Game And Fish Protector Relationship Specialty Start Date End Date Afua Leblanc CNP [address] [place] [address], [address] [place] [address] [email or web address] PCP - General Nurse Practitioner 05/24/23 Additional Source Comments The information contained in this document represents components of the legal health record. It is not the complete legal health record.[facility]
--- OUTSIDE RECORDS SUMMARY | 2025-08-20 15:25 | XMS_ITS | Encounter Summary ---
Author Organization [facility] Address [address] [place] [address] Phone Care Team Providers Care Sanforizer Name Role Phone Afua Leblanc CNP Primary Care Provider Marina Curry Unavailable [email or web address] Encounter Details Date Type Department Care Team (Late st Contact Info) Description 10/24/2024 Telephone [facility] [address] [place], [place] [id number] Afua Leblanc CNP [address] [facility] 7 [place] [address] Social History Tobacco Use Types Packs/Day Years [...] Job End Date Retired, previously worked at [employer] Not on file Not on file Not on file documented as of this encounter Plan of Treatment Upcoming Encounters Date Type Department Care Team (Late st Contact Info) Description 09/29/2025 11:00 AM EST Office Visit [facility] [address] [place] [address] Afua Leblanc CNP [address] [facility], [address] [place] [address] [email or web address] Scheduled Procedures Name Priority Associated Diagnoses Date/Ti [...] documented as of this encounter Care Teams Sanforizer Relationship Specialty Start Date End Date Afua Leblanc CNP [address] [place] [address], [address] [place], [place] [id number] [email or web address] PCP - General Nurse Practitioner 05/24/23 Marina Curry [address] [place] [address] [email or web address] PHCM Community Oil Mixer 12/30/24 12/30/24 documented as of this encounter Additional Source Comments The information contained in this document represents components of the legal health record. It is not the complete legal health record.[facility]
--- OUTSIDE RECORDS SUMMARY | 2025-08-20 15:25 | XMS_ITS | Encounter Summary ---
Author Organization [facility] Address [address] [place] [address] Phone Care Team Providers Care Shingle Shearing Machine Operator Name Role Phone Afua Leblanc SHERLY Primary Care Provider [phone] Encounter Details Date Type Department Care Team (Late st Contact Info) Description 06/23/2025 Procedure Pass [facility] [place], [facility] Scan - [facility] [address] [place] [address] Social History Tobacco Use Types Packs/Day Years [...] Job End Date Retired, previously worked at [employer] Not on file Not on file Not on file documented as of this encounter Plan of Treatment Upcoming Encounters Date Type Department Care Team (Late st Contact Info) Description 09/29/2025 11:00 AM EST Office Visit [facility] [address] [place] [address] Deana AfuaSHERLY 234 [facility] 7 [place] [address] [email or web address] Scheduled Procedures Name Priority Associated Diagnoses Date/Ti [...] documented as of this encounter Care Teams Shingle Shearing Machine Operator Relationship Specialty Start Date End Date Afua Leblanc SHERLY 234 [facility] 7 [place] [address] [email or web address] PCP - General Nurse Practitioner 05/24/23 documented as of this encounter Additional Source Comments The information contained in this document represents components of the legal health record. It is not the complete legal health record.[facility]
--- OUTSIDE RECORDS SUMMARY | 2025-08-20 15:25 | XMS_ITS | Encounter Summary ---
Author Organization [facility] Address [address] [place] [address] Phone Care Team Providers Care Upholstery Parts Sorter Name Role Phone Elfego, Una Nelli [facility] Primary Care Provider [phone] Ashely Leblancghan SEAFOOD TECHNOLOGY SPECIALIST Primary Care Provider Cayden Al MD Unavailable Marina Curry Unavailable karlo Encounter Details Date Type Department Care Team (Late st Contact Info) Description 12/29/2020 Transcribe Orders [facility] [address] [place], [place] [phone] Ean Santamaria MD [address] [place], [place] [phone] Routine general medical examination at a health [...] [facility] [address] [place] [address] Afua Leblanc, SHERLY [address] [facility], [address] [place] [address] [email or web address] Scheduled Procedures Name Priority Associated Diagnoses Date/Ti [...] antibody screen (12/30/2020 10:54 AM EDT) Pathologist [facility] RPR NON-REACTIV E NON-REACTI VE [facility] Blood 12/30/2020 10:5 4 AM EDT 12/30/2020 10:59 AM EDT Ean Santamaria MD LAB BLOOD BKR ORD ERABLES Final Result [facility] [address] [place] [address] * Quantiferon-TB Gold (12/30/2020 10:54 AM EDT) Pathologist [facility] QuantiFERON-TB Gold Negative Negative [facility] Comment: (NOTE) No interferon-gamma [...] [facility] Mitogen minus Nil 7.62 IU/mL [facility] Nil Result 0.03 IU/mL [facility] Blood 12/30/2020 10:5 4 AM EDT 12/30/2020 10:59 AM EDT us Ean Santamaria MD LAB BLOOD ORDERAB LES Final Result [facility] [address] [place] [address] documented in this encounter Visit Diagnoses Diagnosis [...] documented as of this encounter Care Teams Upholstery Parts Sorter Relationship Specialty Start Date End Date Una Telles CNP [address] [place] [address], [address] [place] [address] PCP - General 06/08/17 05/23/23 Afua Leblanc CNP [address] [place], [place] [address], [place] [address] [email or web address] PCP - General Nurse Practitioner 05/24/23 Cayden Al MD [address] [place] [address] 7 [place] [address] [email or web address] Insurance Assigned Provider 11/25/23 08/26/24 Marina Curry [address] [place] [address] [email or web address] PHCM Community Laundry Equipment Operator 12/30/24 12/30/24 documented as of this encounter Additional Source Comments The information contained in this document represents components of the legal health record. It is not the complete legal health record.[facility]
--- OUTSIDE RECORDS SUMMARY | 2025-08-20 15:25 | XMS_ITS | Encounter Summary ---
Author Organization [facility] Address [address] [facility] [address] [place] [address] Phone Care Team Providers Care Warrant Server Name Role Phone Elfego Una Aiken [facility] Primary Care Provider [phone] Jazmyn Anderson RN Unavailable [phone] Afua Leblanc PHILOSOPHY FACULTY Primary Care Provider Cayden Al MD Unavailable Marina Curry Unavailable [email or web address] Encounter Details Date Type Department Care Team (Late st Contact Info) Description 09/20/2018 Ancillary Orders Tina Oliveira Non-Invasive Cardiology [address] [place] [address] Travis Donald MD [address] [place] [address] [email or web address] degree heart [email or web address] Social [...] 09/29/2025 11:00 AM EST Office Visit [facility] Primary Care [facility] [address] [place] [address] Afua Leblanc CNP [address] [facility], [address] [place] [address] [email or web address] Scheduled Procedures Name Priority Associated Diagnoses Date/Ti [...] documented as of this encounter Care Teams Warrant Server Relationship Specialty Start Date End Date Una Telles CNP [address] [facility], 2nd [place] [address] PCP - General 06/08/17 05/23/23 Afua Leblanc CNP 234 [facility] 7 [place] [address] [email or web address] PCP - General Nurse Practitioner 05/24/23 Jazmyn Anderson, JULY [address] [place] [address] [email or web address] PHCM Import/Export Freight Forwarder 05/30/18 03/07/19 Cayden Al MD [address] [facility] 7 [place] [address] [email or web address] Insurance Assigned Provider 11/25/23 08/26/24 Marina Curry [address] [place] [address] [email or web address] PHCM Community Sprue Cutting Press Operator 12/30/24 12/30/24 documented as of this encounter Additional Source Comments The information contained in this document represents components of the legal health record. It is not the complete legal health record.[facility]
--- OUTSIDE RECORDS SUMMARY | 2025-08-20 15:25 | XMS_ITS | Encounter Summary ---
Author Organization [facility] Address [address] [facility] [address] [place] [address] Phone Care Team Providers Care Respooler Name Role Phone Una Telles GENERAL ADMINISTRATOR Primary Care Provider Jazmyn Anderson RN Unavailable [phone] Afua Leblanc GENERAL ADMINISTRATOR Primary Care Provider Cayden Al MD Unavailable Marina Curry Unavailable [email or web address] [email or web address] Encounter Details Date Type Department Care Team (Late st Contact Info) Description 09/05/2018 Procedure Pass [facility] [address] [place] [address] Social History Tobacco Use Types Packs/Day Years [...] Description 09/29/2025 11:00 AM EST Office Visit [facility] [address] [place] [address] Afua Leblanc CNP [address] [facility] 7 [place] [address] [email or web address] Scheduled Procedures Name Priority Associated Diagnoses Date/Ti [...] documented as of this encounter Care Teams Respooler Relationship Specialty Start Date End Date Una Telles CNP [address] [facility], 2nd [place] [address] PCP - General 06/08/17 05/23/23 Afua Leblanc CNP [address] [place] [address] 7 [place] [address] PCP - General Nurse Practitioner 05/24/23 Jazmyn Anderson, JULY [address] [place] [address] [email or web address] PHCM Tar Kettle Runner 05/30/18 03/07/19 Cayden Al MD [address] [place] [address], [facility] 7 [place] [address] [email or web address] Insurance Assigned Provider 11/25/23 08/26/24 Marina Curry [address] [place] [address] [email or web address] PHCM Community Gyroscopic Engineering Technician 12/30/24 12/30/24 documented as of this encounter Additional Source Comments The information contained in this document represents components of the legal health record. It is not the complete legal health record.[facility]
--- OUTSIDE RECORDS SUMMARY | 2025-08-20 15:25 | XMS_ITS | Encounter Summary ---
Author Organization [facility] Address [address] [place] [address] Phone Care Team Providers Care Polysomnographic Tech Name Role Phone Una Telles MULE DEVELOPER Primary Care Provider [phone] Jazmyn Anderson RN Unavailable [phone] Afua Leblanc MULE DEVELOPER Primary Care Provider Cayden Al MD Unavailable Marina Curry Unavailable karlo [email or web address] Encounter Details Date Type Department Care Team (Late st Contact Info) Description 09/20/2018 Ancillary Orders [facility] Cardiology Clinic [address] [place] [address] Travis Donald MD [address] [place] [address] Social History Tobacco Use Types Packs/Day Years [...] Visit [facility] Primary Care [facility] [address] [place] [address] Afua Leblanc CNP 234 [facility], [address] [place] [address] [email or web address] Scheduled Procedures Name Priority Associated Diagnoses [...] documented as of this encounter Care Teams Polysomnographic Tech Relationship Specialty Start Date End Date Una Telles CNP 15 [facility], 2nd [place] [address] PCP - General 06/08/17 05/23/23 Afua Leblanc CNP [address] [place] [address] 7 [place] [address] [email or web address] PCP - General Nurse Practitioner 05/24/23 Jazmyn Anderson, JULY 30 [place] [address] [email or web address] PHCM Office Support 05/30/18 03/07/19 Cayden Al MD [address] [place] [address] 7 [place] [address] [email or web address] Insurance Assigned Provider 11/25/23 08/26/24 Marina Curry [address] [place] [address] [email or web address] PHCM Community Forger Helper 12/30/24 12/30/24 documented as of this encounter Additional Source Comments The information contained in this document represents components of the legal health record. It is not the complete legal health record.[facility]
--- OUTSIDE RECORDS SUMMARY | 2025-08-20 15:26 | XMS_ITS | Clinical Summary ---
Author Organization [facility] Address [address] [place] [address] Care Team Providers Care Archaeology Professor Name Role Phone ManiUna SAURABH Primary Care Provider [phone] Allergies Active Allergy Reactions Criticality Noted Date [...] topic Insurance MEDICARE PART A & B [facility] Care Teams Archaeology Professor Relationship Specialty Start Date End Date Una Singleton NP 234 [facility] 101 [place] [address] PCP - General Adult Health - PA/APNP/RADIOLOGY AIDE/KILN DOOR BUILDER 11/18/21
--- OUTSIDE RECORDS SUMMARY | 2025-08-20 15:26 | XMS_ITS | Encounter Summary ---
Author Organization [facility] Address [address] [place] [address] Phone Care Team Providers Care Childrens Club Attendant Name Role Phone Afua Leblanc SHERLY Primary Care Provider Marina Curry Unavailable karlo Encounter Details Date Type Department Care Team (Late st Contact Info) Description 09/24/2024 Procedure Pass [facility] 30 [place], [place] [id number] Social History Tobacco Use Types Packs/Day Years [...] Job End Date Retired, previously worked at [employer] Not on file Not on file Not on file documented as of this encounter Plan of Treatment Upcoming Encounters Date Type Department Care Team (Late st Contact Info) Description 09/29/2025 11:00 AM EST Office Visit [facility] Primary Care Clinic 234 [place] [address] Afua Leblanc CNP 234 [facility], [address] [place] [address] [email or web address] Scheduled Procedures Name [...] documented as of this encounter Care Teams Childrens Club Attendant Relationship Specialty Start Date End Date Afua Leblanc CNP [address] [place] [address], [address] [place], [place] [address] [email or web address] PCP - General Nurse Practitioner 05/24/23 Marina Curry [address] [place] [address] [email or web address] PHCM Community Shelf Filler 12/30/24 12/30/24 documented as of this encounter Additional Source Comments The information contained in this document represents components of the legal health record. It is not the complete legal health record.[facility]
--- OUTSIDE RECORDS SUMMARY | 2025-08-20 15:26 | XMS_ITS | Encounter Summary ---
Author Organization [facility] Address [address] [place] [address] Phone Care Team Providers Care Traffic Line Painter Name Role Phone Una Telles BUSINESS TEACHER Primary Care Provider [phone] Jazmyn Anderson RN Unavailable [phone] Afua Leblanc BUSINESS TEACHER Primary Care Provider Cayden Al MD Unavailable Marina Curry Unavailable karlo [email or web address] Encounter Details Date Type Department Care Team (Late st Contact Info) Description 01/03/2019 Ancillary Orders [facility] Cardiology Clinic [address] [place] [address] Travis Donald MD [address] [place] [address] [email or web address] SSS (sick sinus syndrome) Social History Tobacco [...] Description 09/29/2025 11:00 AM EST Office Visit [facility] Primary Care Clinic 234 [place] [address] Afua Leblanc, SHERLY 234 [facility], [address] [place] [address] [email or web address] Pending Results Name Type Priority Associated Diagnoses [...] documented as of this encounter Care Teams Traffic Line Painter Relationship Specialty Start Date End Date Una Telles SHERLY Aiken 15 [facility], 2nd [place] [address] PCP - General 06/08/17 05/23/23 Afua Leblanc CNP [address] [place] [address] 7 [place] [address] PCP - General Nurse Practitioner 05/24/23 Jazmyn Anderson RN 30 [place] [address] PHCM Market Reporter 05/30/18 03/07/19 Cayden Al MD [address] [place] [address] 7 [place] [address] Insurance Assigned Provider 11/25/23 08/26/24 Marina Curry [address] [place] [address] [email or web address] PHCM Community Trans Router 12/30/24 12/30/24 documented as of this encounter Additional Source Comments The information contained in this document represents components of the legal health record. It is not the complete legal health record.[facility]
--- OUTSIDE RECORDS SUMMARY | 2025-08-20 15:26 | XMS_ITS | Encounter Summary ---
Author Organization [facility] Address [address] [facility] [address] [place] [address] Phone Care Team Providers Care Biblical Languages Professor Name Role Phone Afua Leblanc SHERLY Primary Care Provider Encounter Details Date Type Department Care Team (Late st Contact Info) Description 06/26/2025 Home Health Resumption of Care Planning [facility] [address] [place] [address] Rhonda Mason, RN [address] [place] [address] [email or web address] Social History Tobacco [...] Description 09/29/2025 11:00 AM EST Office Visit [facility] Primary Care Clinic 234 [place] [address] Afua Leblanc CNP [address] [address] [email or web address] Scheduled Procedures Name [...] documented as of this encounter Care Teams Biblical Languages Professor Relationship Specialty Start Date End Date Afua LeblancSHERLY [address] [address] [email or web address] PCP - General Nurse Practitioner 05/24/23 documented as of this encounter Additional Source Comments The information contained in this document represents components of the legal health record. It is not the complete legal health record.[facility]
--- OUTSIDE RECORDS SUMMARY | 2025-08-20 15:26 | XMS_ITS | Encounter Summary ---
Author Organization [facility] Address [address] [facility] [address] [place] [address] Phone Care Team Providers Care Neonatologist Name Role Phone Una Telles BANQUET PREP COOK Primary Care Provider Jazmyn Anderson RN Unavailable [phone] Afua Leblanc BANQUET PREP COOK Primary Care Provider [phone] Cayden Al MD Unavailable Marina Curry Unavailable karlo [email or web address] Reason for Referral * MRI/CAT Scan - Closed Specialty Diagnoses / Procedures Referred By Contac t Referred To Contact Procedures CT Chest Outside (No Interpretation) System, Provider Not In, [facility] [address] [address] Referral ID Status Reason Start Date Expiration Date Visits Re quested Visits Authorized [id number] Closed 01/08/2019 01/08/2020 1 1 Encounter Details Date Type Department Care Team (Late st Contact Info) Description 01/08/2019 Ancillary Orders [facility],Outside Imaging 30 [place] [address] System, Provider Not In, [facility] [address] [address] Social History Tobacco Use Types Packs/Day Years [...] Description 09/29/2025 11:00 AM EST Office Visit [facility] Primary Care Clinic 234 [place] [address] Afua Leblanc CNP 234 [facility], [address] [place] [address] [email or web address] Scheduled Procedures Name Priority Associated Diagnoses Date/Ti [...] documented as of this encounter Care Teams Neonatologist Relationship Specialty Start Date End Date Uan Telles CNP 15 [facility], 2nd [place] [address] PCP - General 06/08/17 05/23/23 Afua Leblanc CNP 234 [facility] 7 [place] [address] PCP - General Nurse Practitioner 05/24/23 Jazmyn Anderson, JULY 30 [place] [address] PHCM Ict Help Desk Technician 05/30/18 03/07/19 Cayden Al MD 234 [facility] 7 [place] [address] Insurance Assigned Provider 11/25/23 08/26/24 Marina Curry [address] [place] [address] [email or web address] PHCM Community Skimmer Scoop Operator 12/30/24 12/30/24 documented as of this encounter Additional Source Comments The information contained in this document represents components of the legal health record. It is not the complete legal health record.[facility]
--- OUTSIDE RECORDS SUMMARY | 2025-08-20 15:26 | XMS_ITS | Encounter Summary ---
Author Organization [facility] Address [address] [place] [address] Phone Care Team Providers Care Memorial Designer Name Role Phone Elfego Una Aiken DELI ASSOCIATE Primary Care Provider [phone] Afua Leblanc DELI ASSOCIATE Primary Care Provider Cayden Al MD Unavailable Marina Curry Unavailable karlo Encounter Details Date Type Department Care Team (Late st Contact Info) Description 06/29/2021 Telephone [facility] Diabetes Clinic 22 [place] [address] Destinee Shirley NP [address] [place] [address] [email or web address] Social History Tobacco Use Types Packs/Day Years [...] Description 09/29/2025 11:00 AM EST Office Visit [facility] 234 [place] [address] Afua Leblanc CNP 234 [facility] 7 [place] [address] Scheduled Procedures Name Priority Associated Diagnoses Date/Ti [...] documented as of this encounter Care Teams Memorial Designer Relationship Specialty Start Date End Date Una Telles CNP 15 [facility], 2nd [place] [address] PCP - General 06/08/17 05/23/23 Afua Leblanc CNP 234 [facility] 7 [place] [address] PCP - General Nurse Practitioner 05/24/23 Cayden Al MD [address] [place] [address], [address] [place] [address] [email or web address] Insurance Assigned Provider 11/25/23 08/26/24 Marina Curry 10 [place] [address] [email or web address] PHCM Community Agricultural Crop Farm Manager 12/30/24 12/30/24 documented as of this encounter Additional Source Comments The information contained in this document represents components of the legal health record. It is not the complete legal health record.[facility]
--- OUTSIDE RECORDS SUMMARY | 2025-08-20 15:26 | XMS_ITS | Encounter Summary ---
Author Organization [facility] Address [address] [place] [address] Phone Care Team Providers Care Job Honer Name Role Phone Afua Leblanc SHERLY Primary Care Provider Reason for Visit * Reason Onset Date Comments Labs 07/23/2025 Encounter Details Date Type Department Care Team (Late st Contact Info) Description 07/23/2025 Telephone [facility] Primary Care Clinic [address] [place], [place] [id number] Shahab Shelyb, JULY [address] [place], [place] [phone] Labs Social History Tobacco Use Types Packs/Day [...] Job End Date Retired, previously worked at [employer] Not on file Not on file Not [...] Description 09/29/2025 11:00 AM EST Office Visit [facility] Primary Care [facility] [address] [place] [address] Afua Leblanc CNP 234 [facility] [address] [place] [address] [email or web address] Scheduled Procedures Name Priority Associated Diagnoses [...] documented as of this encounter Care Teams Job Honer Relationship Specialty Start Date End Date Afua Leblanc CNP [address] [place] [address], [address] [place] [address] [email or web address] PCP - General Nurse Practitioner 05/24/23 documented as of this encounter Additional Source Comments The information contained in this document represents components of the legal health record. It is not the complete legal health record.[facility]
--- OUTSIDE RECORDS SUMMARY | 2025-08-20 15:26 | XMS_ITS | Encounter Summary ---
Author Organization [facility] Address [address] [facility] [address] [place] [address] Phone Care Team Providers Care Inside Meter Tester Name Role Phone Afua Leblanc SHERLY Primary Care Provider Encounter Details Date Type Department Care Team (Late st Contact Info) Description 06/24/2025 Procedure Pass [facility] Endoscopy Admitting Dept Virtual Department 30 [place], [place] [id number] Social History Tobacco Use Types Packs/Day Years [...] Job End Date Retired, previously worked at [employer] Not on file Not on file Not on file documented as of this encounter Plan of Treatment Upcoming Encounters Date Type Department Care Team (Late st Contact Info) Description 09/29/2025 11:00 AM EST Office Visit [facility] Primary Care Clinic 234 [place] [address] Afua Leblanc SHERLY 234 [facility] 7 [place] [address] [email or web address] Scheduled Procedures Name Priority Associated Diagnoses Date/Ti [...] documented as of this encounter Care Teams Inside Meter Tester Relationship Specialty Start Date End Date Afua Leblanc SHERLY 234 [facility] 7 [place] [address] [email or web address] PCP - General Nurse Practitioner 05/24/23 documented as of this encounter Additional Source Comments The information contained in this document represents components of the legal health record. It is not the complete legal health record.[facility]
--- OUTSIDE RECORDS SUMMARY | 2025-08-20 15:26 | XMS_ITS | Encounter Summary ---
Author Organization [facility] Address [address] [place] [address] Phone Care Team Providers Care Doctor Of Nursing Practice Name Role Phone Elfego Una Aiken [facility] Primary Care Provider [phone] Afua Leblanc GORE SEAMER Primary Care Provider Cayden Al MD Unavailable Marina Curry Unavailable karlo [email or web address] Encounter Details Date Type Department Care Team (Late st Contact Info) Description 11/18/2021 Procedure Pass [facility], Ct Scan - [address] [address] Social History Tobacco Use Types Packs/Day Years [...] Description 09/29/2025 11:00 AM EST Office Visit [facility] Primary Care Clinic [address] [place] [address] Afua Leblanc CNP 234 [facility], [facility] 7 [place] [address] [email or web address] Scheduled Procedures Name [...] documented as of this encounter Care Teams Doctor Of Nursing Practice Relationship Specialty Start Date End Date Una Telles CNP 15 [facility], 2nd [place] [address] [email or web address] PCP - General 06/08/17 05/23/23 Afua Leblanc CNP 234 [facility] 7 [place] [address] [email or web address] PCP - General Nurse Practitioner 05/24/23 Cayden Al MD 234 [facility] 7 [place] [address] [email or web address] Insurance Assigned Provider 11/25/23 08/26/24 Marina Curry [address] [place] [address] [email or web address] PHCM Community Sales Trainer 12/30/24 12/30/24 documented as of this encounter Additional Source Comments The information contained in this document represents components of the legal health record. It is not the complete legal health record.[facility]
--- OUTSIDE RECORDS SUMMARY | 2025-08-20 15:26 | XMS_ITS | Encounter Summary ---
Author Organization [facility] Address [address] [facility] [address] [place] [address] Phone Care Team Providers Care Sewer And Drain Technician Name Role Phone Elfego, Una Aiken [facility] Primary Care Provider [phone] Afua Leblanc [facility] Primary Care Provider Cayden Al MD Unavailable Marina Curry Unavailable karlo Encounter Details Date Type Department Care Team (Latest Contact Info) Description 11/04/2021 Transcribe Orders Virtual Department 30 [place] [address] Jai Jones MD 15 [facility] [address] [place] [address] [email or web address] Stage 3b chronic kidney disease (CKD) (Primary [...] Description 09/29/2025 11:00 AM EST Office Visit [facility] Primary Care Clinic 234 [place] [address] Ashely Leblancghan, SHERLY 234 [facility], [address] [place] [address] [email or web address] Scheduled Procedures Name Priority Associated Diagnoses Date/Ti [...] Otherwise, unremarkable renalsonography. us Jai Jones MD [facility] Final Result documented in this [...] documented as of this encounter Care Teams Sewer And Drain Technician Relationship Specialty Start Date End Date Una Telles CNP 15 [facility], 2nd [place] [address] PCP - General 06/08/17 05/23/23 Afua Leblanc CNP [address] [place] [address] 7 [place] [address] PCP - General Nurse Practitioner 05/24/23 Cayden Al MD [address] [place] [address] 7 [place] [address] [email or web address] Insurance Assigned Provider 11/25/23 08/26/24 Marina Curry [address] [place] [address] [email or web address] PHCM Community Hand Bookbinder 12/30/24 12/30/24 documented as of this encounter Additional Source Comments The information contained in this document represents components of the legal health record. It is not the complete legal health record.[facility]
--- OUTSIDE RECORDS SUMMARY | 2025-08-20 15:26 | XMS_ITS | Encounter Summary ---
Author Organization [facility] Address [address] [facility] [address] [place] [address] Phone Care Team Providers Care Geological Sample Tester Name Role Phone Una Telles ASSOCIATE PROFESSOR Primary Care Provider Jazmyn Anderson RN Unavailable [phone] Afua Leblanc ASSOCIATE PROFESSOR Primary Care Provider Cayden Al MD Unavailable Marina Curry Unavailable karlo [email or web address] Encounter Details Date Type Department Care Team (Late st Contact Info) Description 12/26/2018 Procedure Pass [facility], [address] [address] Social History Tobacco Use Types Packs/Day Years [...] Mental Health Facility Primary Care Clinic 234 [place] [address] Afua Leblanc CNP 234 [facility] 7 [place] [address] [email or web address] Scheduled Procedures Name Priority Associated Diagnoses Date/Ti [...] documented as of this encounter Care Teams Geological Sample Tester Relationship Specialty Start Date End Date Una Telles CNP 15 [facility], 2nd [place] [address] PCP - General 06/08/17 05/23/23 Afua Leblanc CNP 234 [facility] 7 [place] [address] [email or web address] PCP - General Nurse Practitioner 05/24/23 Jazmyn Anderson, JULY 30 [place] [address] [email or web address] PHCM Hoop Puncher 05/30/18 03/07/19 Cayden Al MD [address] [place] [address], [facility] 7 [place], [place] [address] [email or web address] Insurance Assigned Provider 11/25/23 08/26/24 Marina Curry 10 [place] [address] [email or web address] PHCM Community Sodium Methylate Operator 12/30/24 12/30/24 documented as of this encounter Additional Source Comments The information contained in this document represents components of the legal health record. It is not the complete legal health record.[facility]
== END 2025-08-20 15:04 | disposition home or self-care (01) ==
LOC: HO.HKA 14:12
PROVIDERS: PCP Nurse Practitioner Family; Visit Provider Internal Medicine Nephrology
DX: N18.32 Chronic kidney disease, stage 3b (principal); E87.5 Hyperkalemia; N18.4 Chronic kidney disease, stage 4 (severe); D63.1 Anemia in chronic kidney disease
CPT/HCPCS: 99214

== ENCOUNTER → 2025-08-20 14:12 | Outpatient (BNVA) | payer MEDICARE, MEDICAID, SELFPAY | PROVIDERS: PCP Nurse Practitioner Family; Visit Provider Internal Medicine Nephrology | DX: I12.9 Hypertensive chronic kidney disease with stage 1 through stage 4 chronic kidney disease, or unspecified chronic kidney disease (principal); E11.22 Type 2 diabetes mellitus with diabetic chronic kidney disease; N18.4 Chronic kidney disease, stage 4 (severe); Z79.4 Long term (current) use of insulin; D63.1 Anemia in chronic kidney disease; E87.5 Hyperkalemia; Z89.512 Acquired absence of left leg below knee | CPT/HCPCS: 99212 ==